=== PATIENT | female | born 1965 | race African-American/Black ===

== ENCOUNTER 2017-06-09 07:20 | Inpatient (IN) | payer OTHER ==
[~2017-06-09] VITALS: Ht 160 cm; Wt 59.0 kg
[2017-06-09] MEDS ORDERED: GABAPENTIN800 MG ORAL (07:28)
[2017-06-09] MEDS ORDERED: PERCOCET 7.5-31 EACH ORAL (07:28)
[2017-06-09 07:30] VITALS: BP 177/95
[2017-06-09] MEDS ORDERED: Nitroglycerin Subl 0.4mg tab SL PRN (07:30)
[2017-06-09] MEDS ORDERED: Sodium Chloride 500ML 500 ML IV ONE (07:30)
[2017-06-09] MEDS ORDERED: LANTUS SOL100 UNIT/1 SUBQ ×2 (07:57→12:23)
[2017-06-09] MEDS ORDERED: Morphine Sulfate 4mg/ml Inj IVP ONE (08:30)
[2017-06-09 08:32] LABS: EOSINOPHILS % (AUTO) 0.6 % (0.0-3.0); HEMATOCRIT 37.7 % (37.0-47.0); HEMOGLOBIN 12.1 G/DL (12.0-16.0); LYMPHOCYTES % (AUTO) 19.7 % (20.0-45.0); MEAN CORPUSCULAR VOLUME 98 FL (80-99); MONOCYTES % (AUTO) 4.3 % (1.0-10.0); NEUTROPHILS % (AUTO) 74.3 % (45.0-75.0); PLATELET COUNT 255 K/UL (150-450); RED BLOOD COUNT 3.83 M/UL (4.20-5.40); RED CELL DISTRIBUTION WIDTH 12.3 % (11.6-14.8); WHITE BLOOD COUNT 8.1 K/UL (4.8-10.8)
[2017-06-09 08:34] LABS: APPEARANCE,URINE CLEAR; BILIRUBIN, URINE NEGATIVE (NEGATIVE); COLOR,URINE PALE YELLOW; GLUCOSE, URINE (UA) 4+ (NEGATIVE); KETONES,URINE NEGATIVE (NEGATIVE); LEUKOCYTE ESTERASE ,URINE NEGATIVE (NEGATIVE); NITRITE,URINE NEGATIVE (NEGATIVE); PH,URINE 7 (4.5-8.0); PROTEIN,URINE 3+ (NEGATIVE); UROBILINOGEN,URINE NORMAL MG/DL (0.0-1.0)
[2017-06-09 08:36] VITALS: BP 169/83
[2017-06-09 09:12] LABS: ALANINE AMINOTRANSFERASE 19 U/L (12-78); ALBUMIN 2.2 G/DL (3.4-5.0); ALBUMIN/GLOBULIN RATIO 0.6 (1.0-2.7); ALKALINE PHOSPHATASE 166 U/L (46-116); ANION GAP 11 mmol/L (5-15); ASPARTATE AMINO TRANSFERASE 15 U/L (15-37); BILIRUBIN,TOTAL 0.2 MG/DL (0.2-1.0); BLOOD UREA NITROGEN 24 mg/dL (7-18); CALCIUM 8.9 MG/DL (8.5-10.1); CARBON DIOXIDE 23 MMOL/L (21-32); CHLORIDE 99 MMOL/L (98-107); CKMB 2.8 NG/ML (0.0-3.6); CREATINE KINASE 114 U/L (26-308); CREATININE 1.8 MG/DL (0.55-1.30); POTASSIUM 4.2 MMOL/L (3.5-5.1); SODIUM 133 MMOL/L (136-145)
[2017-06-09] MEDS ORDERED: Nitroglycerin 2% oint pkt TOPIC ONE (09:15)
[2017-06-09 09:32] LABS: INR 0.8 (0.9-1.1)
--- NOTE | 2017-06-09 09:52 | Emergency Room Report ---
History of Present Illness General Chief Complaint: Chest Pain Source: Patient Present Illness HPI 52-year-old female presents ED complaining of chest pain. Started this morning it woke her up. At rest. Pain was midsternal, pressure-like, 10 out of 10, nonradiating. Noted shortness of breath. Patient hypertensive in the field. Patient was given aspirin and nitroglycerin with some relief. Patient notes history of hypertension. Accu-Chek critically high. Patient is also diabetic. Denies smoking or drug use. No other aggravating or leading factors. Denies any other associated symptoms Allergies: Coded Allergies: No Known Allergies (Unverified , 06/09/17) Patient History Past Medical History: DM, HTN Past Surgical History: none Pertinent Family History: none Social History: Denies: smoking, alcohol use, drug use Now: No Immunizations: UTD Reviewed Nursing Documentation: PMH: Agreed, PSxH: Agreed Nursing Documentation-PMH Past Medical History: No History, Except For Hx Hypertension: Yes Hx Diabetes: Yes Review of Systems All Other Systems: negative except mentioned in HPI Physical Exam Vital Signs Date Time Temp Pulse Resp B/P (MAP) Pulse Ox O2 Delivery O2 Flow Rate FiO2 06/09/17 07:13 99.3 97 16 180/98 98 Room Air 06/09/17 07:30 2.0 06/09/17 07:35 100 Sp02 EP Interpretation: reviewed, normal General Appearance: alert, GCS 15, non-toxic, mild distress Head: normocephalic, atraumatic Eyes: bilateral eye normal inspection, bilateral eye PERRL ENT: hearing grossly normal, normal pharynx, no angioedema, normal voice Neck: full range of motion, supple/symm/no masses Respiratory: chest non-tender, lungs clear, normal breath sounds, speaking full sentences Cardiovascular #1: regular rate, rhythm, no edema Cardiovascular #2: 2+ carotid (R), 2+ carotid (L), 2+ radial (R), 2+ radial (L) , 2+ dorsalis pedis (R), 2+ dorsalis pedis (L) Gastrointestinal: normal bowel sounds, non tender, soft, non-distended, no guarding, no rebound Rectal: deferred Genitourinary: normal inspection, no CVA tenderness Musculoskeletal: back normal, gait/station normal, normal range of motion, non- tender Neurologic: alert, oriented x3, responsive, motor strength/tone normal, sensory intact, speech normal Psychiatric: judgement/insight normal, memory normal, mood/affect normal, no suicidal/homicidal ideation Reflexes: 3+ bicep (R), 3+ bicep (L), 3+ tricep (R), 3+ tricep (L), 3+ knee (R) , 3+ knee (L) Skin: normal color, no rash, warm/dry, well hydrated Lymphatic: no adenopathy Procedures Critical Care Time Critical Care Time i. I feel this is a highly complex case requiring extensive working including EKG/Rhythm strip, Xray/CT/US, Blood/urine lab work, repeat exams while in ED, and administration of strong opiates/narcotics for pain control, admission to hospital or close patient follow up. Total time: 30 min bedside evaluation and treatment excludes procedures (EKG). Reason for critical care: NSTEMI, hyperglycemia Possible complications: hypotension, hypertension, SD, shock, arrhythmias, metabolic acidosis, end organ damage, respiratory failure. Interventions: labs, ekg, cxr, ivfs, nitroglycerin, morphine, insulin, heparin drip Course: Patient presenting with chest pain sudden onset. Group with nitroglycerin. Troponin greater than 1. U. tox negative. Glucose greater than 600 but no DKA. Patient given morphine, nitroglycerin paste. Started on heparin drip. EKG shows no signs of ST elevation Consultations: nursing staff, EMS, family Performed by: Dr Swanson Tolerated well condition = critical j. because of unstable vital signs this patient had a condition that could potentially threaten life or limb. I feel this is a critical patient who required my full attention while patient was considered critical. Total Critical Care Time excluding procedures was greater than 35 minutes Medical Decision Making Diagnostic Impression: Primary Impression: NSTEMI (non-ST elevated myocardial infarction) Additional Impressions: Hyperglycemia CHF exacerbation Qualified Codes: I50.9 - Heart failure, unspecified ER Course Hospital Course 52-year-old female presents ED complaining of chest pain since this morning Differential diagnoses include: SD/unstable angina, contusion, muscle strain, PTX, rib fracture Clinical course Patient placed on stretcher. After initial history and physical I ordered labs , EKG, chest x-ray, nitroglycerin labs reviewed- no leukocytosis, electrolytes ok, tox screen negative, troponins 1.096, BNP > 6000, Glucose > 600 but not DKA EKG- no evidence of ST elevation interpreted by me Chest x-ray- cardiomegaly Given nitroglycerin with pain improved. Started on nitro paste. started on heparin drip. Given Plavix given IVFs, insulin Case discussed with Dr. Tran and he agreed to accept the patient to his service for further care and support I. I feel this is a highly complex case requiring extensive working including EKG/Rhythm strip, Xray/CT/US, Blood/urine lab work, repeat exams while in ED, and administration of strong opiates/narcotics for pain control, admission to hospital or close patient follow up. Diagnosis - NSTEMI, CHF, hyperglycemia admitted to [facility] in critical condition Labs Test 06/09/17 07:50 06/09/17 08:00 White Blood Count 8.1 K/UL (4.8-10.8) Red Blood Count 3.83 M/UL (4.20-5.40) Hemoglobin 12.1 G/DL (12.0-16.0) Hematocrit 37.7 % (37.0-47.0) Mean Corpuscular Volume 98 FL (80-99) Mean Corpuscular Hemoglobin 31.5 PG (27.0-31.0) Mean Corpuscular Hemoglobin Concent 32.0 G/DL (32.0-36.0) Red Cell Distribution Width 12.3 % (11.6-14.8) Platelet Count 255 K/UL (150-450) Mean Platelet Volume 10.4 FL (6.5-10.1) Neutrophils (%) (Auto) 74.3 % (45.0-75.0) Lymphocytes (%) (Auto) 19.7 % (20.0-45.0) Monocytes (%) (Auto) 4.3 % (1.0-10.0) Eosinophils (%) (Auto) 0.6 % (0.0-3.0) Basophils (%) (Auto) 1.0 % (0.0-2.0) Sodium Level 133 MMOL/L (136-145) Potassium Level 4.2 MMOL/L (3.5-5.1) Chloride Level 99 MMOL/L (98-107) Carbon Dioxide Level 23 MMOL/L (21-32) Anion Gap 11 mmol/L (5-15) Blood Urea Nitrogen 24 mg/dL (7-18) Creatinine 1.8 MG/DL (0.55-1.30) Estimat Glomerular Filtration Rate 35.5 mL/min (>60) Glucose Level 666 MG/DL (74-106) Calcium Level 8.9 MG/DL (8.5-10.1) Total Bilirubin 0.2 MG/DL (0.2-1.0) Aspartate Amino Transf (AST/SGOT) 15 U/L (15-37) Alanine Aminotransferase (ALT/SGPT) 19 U/L (12-78) Alkaline Phosphatase 166 U/L (46-116) Total Creatine Kinase 114 U/L (26-308) Creatine Kinase MB 2.8 NG/ML (0.0-3.6) Creatine Kinase MB Relative Index 2.4 Troponin I 1.096 ng/mL (0.000-0.056) Pro-B-Type Natriuretic Peptide 6917 pg/mL (0-125) Total Protein 6.1 G/DL (6.4-8.2) Albumin 2.2 G/DL (3.4-5.0) Globulin 3.9 g/dL Albumin/Globulin Ratio 0.6 (1.0-2.7) Acetone Level Negative (NEGATIVE) Prothrombin Time 8.7 SEC (9.30-11.50) Prothromb Time International Ratio 0.8 (0.9-1.1) Activated Partial Thromboplast Time 26 SEC (23-33) Urine Color Pale yellow Urine Appearance Clear Urine pH 7 (4.5-8.0) Urine Specific [place] 1.005 (1.005-1.035) Urine Protein 3+ (NEGATIVE) Urine Glucose (UA) 4+ (NEGATIVE) Urine Ketones Negative (NEGATIVE) Urine Occult Blood 1+ (NEGATIVE) Urine Nitrite Negative (NEGATIVE) Urine Bilirubin Negative (NEGATIVE) Urine Urobilinogen Normal MG/DL (0.0-1.0) Urine Leukocyte Esterase Negative (NEGATIVE) Urine RBC 0-2 /HPF (0 - 2) Urine WBC 0-2 /HPF (0 - 2) Urine Squamous Epithelial Cells Occasional /LPF Urine Bacteria Occasional /HPF (NONE) Urine HCG, Qualitative Negative Urine Opiates Screen Negative (NEGATIVE) Urine Barbiturates Screen Negative (NEGATIVE) Phencyclidine (PCP) Screen Negative (NEGATIVE) Urine Amphetamines Screen Negative (NEGATIVE) Urine Benzodiazepines Screen Negative (NEGATIVE) Urine Cocaine Screen Negative (NEGATIVE) Urine Marijuana (THC) Screen Negative (NEGATIVE) EKG Diagnostic Results Rate: normal Rhythm: NSR ST Segments: no acute changes ASA given to the pt in ED: No - given by ems Rhythm Strip Diag. Results EP Interpretation: yes Rhythm: NSR, no PVC's, no ectopy Chest X-Ray Diagnostic Results Chest X-Ray Diagnostic Results : Chest X-Ray Ordered: Yes # of Views/Limited/Complete: 1 View Indication: Chest Pain EP Interpretation: Yes Interpretation: no pneumothorax, other - cardiomegaly. bilateral congestion Impression: Other - cardiomegaly Electronically Signed by: Electronically signed by Eleazar Swanson MD Last Vital Signs Date Time Temp Pulse Resp B/P (MAP) Pulse Ox O2 Delivery O2 Flow Rate FiO2 06/09/17 09:13 170/79 06/09/17 08:36 85 23 99 2.0 06/09/17 07:35 Nasal Cannula 100 06/09/17 07:13 99.3 Status: improved Disposition: ADMITTED INPATIENT Condition: Critical Referrals: NON PHYSICIAN (PCP) ELEAZAR SWANSON M.D. Jun 09, 2017 09:52
[2017-06-09] MEDS ORDERED: Heparin 5000 units/ml inj IV ONE ×2 (10:00→21:15)
[2017-06-09] MEDS ORDERED: Heparin 25,000u/D5W 500ml 500 ML IV SCH ×3 (10:00→20:15)
[2017-06-09 11:21] VITALS: BP 154/81
[2017-06-09] MEDS ORDERED: HYDROmorphone 1mg/ml Carpuject IVP ONE (11:30)
[2017-06-09 12:27] VITALS: BP 150/85
--- NOTE | 2017-06-09 13:21 | Diagnostic Imaging Report ---
Indication: Chest pain Technique: One view of the chest Comparison: None Findings: There is mild interstitial prominence, suggestion of Re B line cyst laterally at the lung bases, right greater left. There is suggestion of small left pleural effusion. The heart is upper limits normal in size. Impression: Suspect mild congestive heart failure. Correlate with clinical findings
[2017-06-09 13:28] LABS: ALANINE AMINOTRANSFERASE 17 U/L (12-78); ALBUMIN/GLOBULIN RATIO 0.4 (1.0-2.7); ALKALINE PHOSPHATASE 147 U/L (46-116); ANION GAP 9 mmol/L (5-15); ASPARTATE AMINO TRANSFERASE 17 U/L (15-37); BILIRUBIN,TOTAL 0.2 MG/DL (0.2-1.0); BLOOD UREA NITROGEN 20 mg/dL (7-18); CALCIUM 8.7 MG/DL (8.5-10.1); CARBON DIOXIDE 24 MMOL/L (21-32); CHLORIDE 103 MMOL/L (98-107); CHOLESTEROL 340 MG/DL (< 200); CREATININE 1.5 MG/DL (0.55-1.30); HDL CHOLESTEROL 47 MG/DL (40-60); POTASSIUM 3.9 MMOL/L (3.5-5.1); SODIUM 136 MMOL/L (136-145); TRIGLYCERIDES 341 MG/DL (0-200)
[2017-06-09 13:29] LABS: CKMB 3.6 NG/ML (0.0-3.6)
[2017-06-09 15:42] VITALS: BP 152/75
[2017-06-09] MEDS ORDERED: Norco 7.5mg/325mg tab ORAL PRN ×2 (16:00)
[2017-06-09] MEDS: Nitroglycerin 2% oint pkt TOPIC SCH (17:19)
[2017-06-09] MEDS: NovoLOG Insulin Flexpen SUBQ SCH ×2 (17:44→21:30)
[2017-06-09] MEDS: Morphine Sulfate 4mg/ml Inj IV PRN ×2 (18:08→23:08)
[2017-06-09 20:00] VITALS: BP 159/84
[2017-06-09] MEDS: Atenolol 12.5mg PO SCH (21:24)
[2017-06-09] MEDS: Levemir Flexpen SUBQ SCH (21:31)
[2017-06-10] VITALS (7 sets, daily range): BP systolic 136–191; BP diastolic 66–106
[2017-06-10 03:52] LABS: CHOLESTEROL 306 MG/DL (< 200); HDL CHOLESTEROL 45 MG/DL (40-60); TRIGLYCERIDES 449 MG/DL (0-200)
[2017-06-10] MEDS: Morphine Sulfate 4mg/ml Inj IV PRN (04:29)
[2017-06-10] MEDS ORDERED: Heparin 25,000u/D5W 500ml 500 ML IV SCH ×2 (05:00→12:30)
[2017-06-10] MEDS ORDERED: Heparin 5000 units/ml inj IV ONE ×3 (05:00→20:15)
[2017-06-10] MEDS: NovoLOG Insulin Flexpen SUBQ SCH ×4 (06:24→21:07)
[2017-06-10] MEDS: Nitroglycerin 2% oint pkt TOPIC SCH ×3 (06:29→18:25)
[2017-06-10] MEDS: Atenolol 12.5mg PO SCH ×2 (08:41→20:07)
[2017-06-10] MEDS: Aspirin Baby 81mg ORAL SCH (08:41)
[2017-06-10] MEDS: Levemir Flexpen SUBQ SCH ×2 (08:42→21:06)
[2017-06-10] MEDS ORDERED: Morphine Sulfate 4mg/ml Inj IV PRN (10:00)
[2017-06-10] MEDS: Morphine Sulfate 4mg/ml Inj IVP PRN ×3 (10:02→19:02)
--- NOTE | 2017-06-10 13:57 | Cardiology Report ---
APPROVED REPORT EXAM: Two-dimensional and M-mode echocardiogram with Doppler and color Doppler. INDICATION Acute IN M-Mode DIMENSIONS IVSd1.5 (0.7-1.1cm)Left Atrium (MM)3.5 (1.6-4.0cm) LVDd4.4 (3.5-5.6cm)Aortic Root2.6 (2.0-3.7cm) PWd1.4 (0.7-1.1cm) IVSs1.6 cm LVDs2.7 (2.5-4.0cm) PWs1.9 cm Normal left ventricular chamber size. have normal wall motion. Left ventricular ejection fraction estimated to be 55 %. Mild left ventricular hypertrophy. Anterior Echo-free space, may be due to pericardial fat or effusion. Left atrial size at upper limits of normal. Right cardiac chamber sizes are within normal limits. Focal aortic valve sclerosis with adequate cusp excursion. Thickened mitral valve leaflets with normal excursion. Mitral annulus and aortic root calcification. Pulmonic valve not well visualized. Normal tricuspid valve structure. IVC at normal size with physiologic collapse. A color flow and spectral Doppler study was performed and revealed: Trace aortic regurgitation. Moderate mitral regurgitation. Mitral diastolic velocities suggest reduced left ventricular relaxation c/w mild LV diastolic dysfunction (Grade I). Trace tricuspid regurgitation. Tricuspid systolic velocities suggests peak right ventricular systolic pressure of 18 mmHg.
--- NOTE | 2017-06-10 14:54 | Consultation ---
History of Present Illness General Date patient seen: Jun 10, 2017 Chief Complaint: Chest Pain Reason for Consultation: chest pain Present Illness HPI 52-year-old female with hx of DM, HTN presented to ED complaining of chest pain , midsternal, pressure-like, 10 out of 10, nonradiating. Noted shortness of breath. Patient hypertensive in the field. Patient was given aspirin and nitroglycerin with some relief. She was diagnosed to have NSTEMI, was started on Heparin drip and transferred to [facility]. Allergies: Coded Allergies: No Known Allergies (Unverified , 06/09/17) Medication History Scheduled Gabapentin* (Gabapentin*), 800 MG ORAL THREE TIMES A DAY, (Reported) Insulin Glargine (Lantus), 50 SUBQ BID, (Reported) Scheduled PRN Oxycodone Hcl/Acetaminophen 7.5-325 Mg (Percocet 7.5-325 Mg Tablet), 1 TAB ORAL Q8H PRN for For Pain, (Reported) Patient History Healthcare decision maker Resuscitation status Full Code Advanced Directive on File Past Medical/Surgical History Past Medical/Surgical History: (1) Diabetes mellitus (2) Hypertension Review of Systems Constitutional: Reports: no symptoms All Other Systems: negative except mentioned in HPI Physical Exam General Appearance: WD/WN Lines, tubes and drains: peripheral, PICC Neck: non-tender, normal alignment Respiratory/Chest: lungs clear, no respiratory distress Cardiovascular/Chest: normal rate Abdomen: soft Last 24 Hour Vital Signs Date Time Temp Pulse Resp B/P (MAP) Pulse Ox O2 Delivery O2 Flow Rate FiO2 06/10/17 12:00 98.9 78 19 136/80 98 Nasal Cannula 2.0 06/10/17 12:00 74 06/10/17 11:27 154/82 06/10/17 10:32 99.0 06/10/17 09:20 98 Nasal Cannula 2.0 28 06/10/17 09:20 Nasal Cannula 2.0 28 06/10/17 08:00 94 06/10/17 08:00 99.0 78 20 139/97 98 Nasal Cannula 2.0 100 06/10/17 07:23 99.5 06/10/17 06:29 156/82 06/10/17 04:59 99.5 06/10/17 04:00 98.4 83 20 159/66 98 Nasal Cannula 2.0 100 06/10/17 00:00 99.5 85 20 155/88 98 Nasal Cannula 2.0 100 06/09/17 23:52 Nasal Cannula 2.0 28 06/09/17 23:52 99 Nasal Cannula 2.0 28 06/09/17 20:00 98.9 93 20 159/84 98 Nasal Cannula 2.0 100 06/09/17 20:00 96 06/09/17 17:19 152/75 06/09/17 16:47 93 06/09/17 15:42 99.1 92 19 152/75 98 Nasal Cannula 2.0 100 Intake and Output 06/10/17 06/11/17 19:00 07:00 Intake Total 131.935 ml Balance 131.935 ml IV Total 131.935 ml Laboratory Tests Test 06/09/17 18:30 06/09/17 21:30 06/10/17 02:30 06/10/17 11:00 Activated Partial Thromboplast Time 27 SEC (23-33) 32 SEC (23-33) 43 SEC (23-33) H Troponin I 1.407 ng/mL (0.000-0.056) Triglycerides Level 449 MG/DL (0-200) H Cholesterol Level 306 MG/DL (< 200) H LDL Cholesterol 194 mg/dL (<100) H HDL Cholesterol 45 MG/DL (40-60) Cholesterol/HDL Ratio 6.8 (3.3-4.4) H Height (Feet): 5 Height (Inches): 3.00 Weight (Pounds): 130 Medications Current Medications Medications (Trade) Dose Ordered Sig/Zara Route PRN Reason Start Time Stop Time Status Last Admin Dose Admin Acetaminophen (Tylenol) 650 mg Q6H PRN ORAL Mild Pain/Temp > 100.5 06/09/17 18:45 07/09/17 18:44 06/10/17 06:29 Aspirin (ASA) 81 mg DAILY ORAL 06/10/17 09:00 07/10/17 08:59 06/10/17 08:41 Atenolol (Tenormin) 12.5 mg Q12HR PO 06/09/17 21:00 07/09/17 20:59 06/10/17 08:41 Clonidine HCl (Catapres) 0.1 mg Q6H PRN ORAL FOR SBP>160 06/10/17 10:00 07/10/17 09:59 Dextrose (Dextrose 50%) STAT PRN IV Hypoglycemia 06/09/17 15:45 07/09/17 15:44 Heparin Sodium/ Dextrose 500 ml @ 28.304 mls/ hr adjust per protocol IV 06/10/17 12:30 07/10/17 04:59 06/10/17 12:32 Insulin Aspart (NovoLOG) BEFORE MEALS AND HS SUBQ 06/09/17 17:30 07/09/17 17:29 06/10/17 06:24 Insulin Detemir (Levemir) 50 units EVERY 12 HOURS SUBQ 06/09/17 21:00 07/09/17 20:59 06/10/17 08:42 Morphine Sulfate (Morphine Sulfate) 2 mg Q4H PRN IV Moderate Pain (Pain Scale 4-6) 06/10/17 10:00 06/17/17 09:59 Morphine Sulfate (Morphine Sulfate) 4 mg Q4H PRN IVP Severe Pain (Pain Scale 7-10) 06/10/17 08:45 06/17/17 08:44 06/10/17 10:02 Nitroglycerin (Nitro-Bid) 1 inch TID@0600,1200,1800 TOPIC 06/09/17 18:00 07/09/17 17:59 06/10/17 11:27 Assessment/Plan Problem List: (1) NSTEMI (non-ST elevated myocardial infarction) ICD Codes: I21.4 - Non-ST elevation (NSTEMI) myocardial infarction SNOMED: 018991392 (2) CHF exacerbation ICD Codes: I50.9 - Heart failure, unspecified SNOMED: 91990839 Qualifiers: Qualified Codes: I50.9 - Heart failure, unspecified (3) Diabetes mellitus ICD Codes: E11.9 - Type 2 diabetes mellitus without complications SNOMED: 95983886 (4) Hypertension ICD Codes: I10 - Essential (primary) hypertension SNOMED: 01793436 Assessment/Plan cardio evaluation pending continue heparin drip Nitro prn sliding scale KEVIN GE Jun 10, 2017 14:54
--- NOTE | 2017-06-10 15:16 | History & Physical ---
History and Physical History & Physicial Manjinder Edwards MD Jun 10, 2017 15:16
--- NOTE | 2017-06-10 15:16 | History & Physical ---
History and Physical History & Physicial Manjinder Edwards MD Jun 10, 2017 15:16
--- NOTE | 2017-06-10 15:16 | History & Physical ---
History and Physical History & Physicial Manjinder Edwards MD Jun 10, 2017 15:16
[2017-06-10] MEDS: Atorvastatin 80mg tab ORAL SCH (20:07)
[2017-06-10] MEDS: Heparin 25,000u/D5W 500ml 500 ML IV SCH (20:19)
--- NOTE | 2017-06-10 21:30 | History and Physical Report ---
DATE OF ADMISSION: 06/09/2017 CHIEF COMPLAINT: Chest pain. HISTORY OF PRESENT ILLNESS: This is a 52 years old female with past medical history significant for diabetic type 2 with diabetic neuropathy and hypertension as well as fibromyalgia, who was presented to the hospital complaining about chest pain. Shortly after initial evaluation, the patient was noted to have elevated troponin and EKG with no ST elevation. Chest pain was noted to have midsternum area, pressure like, 10/10 in intensity, no radiation, and associated with shortness of breath. The patient stated that she has been having pedal edema and was noted to have hypertension in the field. Shortly after initial evaluation, the patient was given nitroglycerin and aspirin, some relief, and the patient was admitted to the hospital with non-ST elevation myocardial infarction. PAST MEDICAL HISTORY/PAST SURGICAL HISTORY: As above, history of diabetes type 2, hypertension, diabetic polyneuropathy, and fibromyalgia. MEDICATIONS: At home significant for gabapentin and Lantus. SOCIAL HISTORY: The patient denies any smoking, alcohol, or drugs. She is disabled. FAMILY HISTORY: Significant for diabetes and hypertension runs in both sides, mother and father. REVIEW OF SYSTEMS: Mostly as above. Denies any dysuria, frequency, hematuria, or hematochezia. Denies any hemoptysis or hematochezia. Complained about tingling and numbness of the lower extremities. Denies any hemoptysis or hematochezia. Complained about pedal edema. Denies any loss of consciousness. Denies any double vision. Denies any suicidal or homicidal ideation. PHYSICAL EXAMINATION: VITAL SIGNS: On admission from the ER significant for temperature 99.3, pulse of 97, respirations 16, and blood pressure 180/98. GENERAL: The patient is awake, responsive, in no acute distress. HEAD AND NECK: Pupils are equal and reactive to light. Extraocular movements are intact. Neck was supple. No JVD. LUNGS: Good air entry. No wheezing or rales. HEART: S1 and S2. Regular rhythm. No gallops. ABDOMEN: Soft, nondistended, and nontender. Positive bowel sounds. EXTREMITIES: No cyanosis, clubbing, or edema. NEUROLOGIC: Cranial nerves II through XII are grossly intact. Motor is 5/5 in all extremities. Gait is intact. LABORATORY AND DIAGNOSTIC DATA: Laboratory on admission from the ER, WBC of 8.1, hemoglobin 12, hematocrit 37, and platelets 255,000. Sodium 136, potassium 2.9, chloride 103, bicarbonate 24, BUN 20, creatinine 1.5, glucose is 454, and calcium is 8.7. AST of 17, ALT of 17, and alkaline phosphatase is 147. First troponin is 1.689, second troponins 1.407. Total protein 6.5, albumin is 2.0. Cholesterol is 340 and LDL is 208. Urine drug screen is negative. Urinalysis, +3 protein, +4 glucose, and negative ketones. PT of 8.7, INR 0.8, and PTT of 26. EKG was noted to be sinus rhythm with a ventricular rate of 72, no ST elevation was noted, left atrial enlargement, Q-wave was noted in the lead I and aVL, and a T-wave inversion in lead V6. ASSESSMENT: 1. Chest pain, most likely secondary to non-ST elevation myocardial infarction. 2. Hypertension. 3. Dyslipidemia. 4. Diabetes type 2. 5. Diabetic polyneuropathy. 6. Chronic renal insufficiency. 7. Proteinuria. PLAN: Admit the patient to [facility]. We will follow up with the serial cardiac enzymes. Discussed case with Dr. Godinez from Critical Care. We called the transfer center at [facility] for transfer for cardiac catheterization. Discussed with the social organization professor, Queta for possible transfer. As per insurance, the patient is [place] [facility], we will try to get authorization from insurance in order to transfer the patient to the higher level of care. Heparin drip and Nitrostat. Accu-Chek with sliding scale. We will follow with serial cardiac enzymes. Troponins have been declining. Manjinder Edwards M.D. DR: LEXIE JOB#: [id number] CC:
[2017-06-10] MEDS ORDERED: HydrALAZINE 10mg Tab ORAL PRN (22:45)
[2017-06-11] VITALS: BP 144/79
[2017-06-11] MEDS: Morphine Sulfate 4mg/ml Inj IVP PRN ×5 (00:15→21:54)
[2017-06-11 04:00] VITALS: BP 154/78
[2017-06-11] MEDS: Heparin 25,000u/D5W 500ml 500 ML IV SCH (04:23)
[2017-06-11 05:06] LABS: PHOSPHORUS 4.2 MG/DL (2.5-4.9)
[2017-06-11 05:14] LABS: BASOPHILS % (AUTO) 0.8 % (0.0-2.0); EOSINOPHILS % (AUTO) 1.4 % (0.0-3.0); HEMATOCRIT 33.8 % (37.0-47.0); HEMOGLOBIN 11.2 G/DL (12.0-16.0); MEAN CORPUSCULAR VOLUME 95 FL (80-99); MONOCYTES % (AUTO) 5.8 % (1.0-10.0); NEUTROPHILS % (AUTO) 52.1 % (45.0-75.0); PLATELET COUNT 324 K/UL (150-450); RED BLOOD COUNT 3.54 M/UL (4.20-5.40); RED CELL DISTRIBUTION WIDTH 12.2 % (11.6-14.8); WHITE BLOOD COUNT 9.4 K/UL (4.8-10.8)
[2017-06-11 05:16] LABS: ALANINE AMINOTRANSFERASE 15 U/L (12-78); ALBUMIN 1.8 G/DL (3.4-5.0); ALBUMIN/GLOBULIN RATIO 0.4 (1.0-2.7); ALKALINE PHOSPHATASE 114 U/L (46-116); ANION GAP 12 mmol/L (5-15); ASPARTATE AMINO TRANSFERASE 18 U/L (15-37); BILIRUBIN,TOTAL 0.3 MG/DL (0.2-1.0); BLOOD UREA NITROGEN 25 mg/dL (7-18); CALCIUM 8.9 MG/DL (8.5-10.1); CARBON DIOXIDE 23 MMOL/L (21-32); CHLORIDE 106 MMOL/L (98-107); CREATININE 1.6 MG/DL (0.55-1.30); POTASSIUM 3.4 MMOL/L (3.5-5.1); SODIUM 141 MMOL/L (136-145)
[2017-06-11] MEDS ORDERED: Heparin 25,000u/D5W 500ml 500 ML IV SCH (05:30)
[2017-06-11] MEDS ORDERED: Heparin 5000 units/ml inj IV ONE (05:30)
[2017-06-11] MEDS: Nitroglycerin 2% oint pkt TOPIC SCH ×3 (05:57→18:51)
[2017-06-11] MEDS: NovoLOG Insulin Flexpen SUBQ SCH ×4 (06:28→21:58)
[2017-06-11 08:00] VITALS: BP 144/72
--- NOTE | 2017-06-11 08:00 | Pulmonology Progress Note ---
Assessment/Plan Assessment/Plan ASSESSMENT NSTEMI diastolic CHF exacerbation hyperglycemia 2 to DM HTN urgency acute on chronic renal failure mixed hyperlipidemia moderate MR DM HTN e/lyte imbalance ( hypo K hypo Mg) PLAN OF CARE ECTOR Heparin gtt serial troponin eleavted ECG no acute ischemic changes ECHO with EF 55% and RVSP of 18, moderate MR lipid panel with evidence of mixed hyperlipidemia started on ASA and statin CXR- mild CHF diuretic, monitor renal parameters, lytes, I/O fup CXR with resolution of congestive changes and basilar infiltrates with some residual atelectasis in the bases. change Lasix to daily renal US O2 HHN prn BS management with Levemir and SS of insulin, optimize as needed HgA1c -13.2 ! BP management with BB and hydralazine prn pain management with Morphine and Nitro prn replace lytes, check in am case discussed and evaluated by supervising physician Subjective Allergies: Coded Allergies: No Known Allergies (Unverified , 06/09/17) Subjective occasional chest pain, no SOB on RA pulse ox stable on heparin gtt troponin still elevated low Mg and K this am Objective Last 24 Hour Vital Signs Date Time Temp Pulse Resp B/P (MAP) Pulse Ox O2 Delivery O2 Flow Rate FiO2 06/11/17 05:57 146/78 06/11/17 04:00 97.7 73 16 154/78 100 Nasal Cannula 3.0 06/11/17 03:51 71 06/11/17 00:00 98.2 75 14 144/79 100 Nasal Cannula 3.0 06/10/17 23:40 77 06/10/17 20:05 163/93 06/10/17 20:00 98.6 77 18 191/106 100 Nasal Cannula 3.0 06/10/17 19:26 78 06/10/17 19:20 98 Nasal Cannula 2.0 28 06/10/17 19:20 Nasal Cannula 2.0 28 06/10/17 18:25 146/75 06/10/17 16:00 71 06/10/17 16:00 97.6 71 19 142/93 98 Nasal Cannula 2.0 06/10/17 15:19 98.9 06/10/17 12:00 98.9 78 19 136/80 98 Nasal Cannula 2.0 06/10/17 12:00 74 06/10/17 11:27 154/82 06/10/17 09:20 98 Nasal Cannula 2.0 28 06/10/17 09:20 Nasal Cannula 2.0 28 06/10/17 08:00 94 06/10/17 08:00 99.0 78 20 139/97 98 Nasal Cannula 2.0 100 General Appearance: WD/WN, no acute distress HEENT: normocephalic, atraumatic, anicteric, mucous membranes moist, PERRL Respiratory/Chest: chest wall non-tender, lungs clear, normal breath sounds, no respiratory distress, no accessory muscle use Cardiovascular: normal rate, regular rhythm - SR on tele , no JVD Abdomen: normal bowel sounds, soft, non tender, non distended Neurologic/Psychiatric: no motor/sensory deficits, alert, oriented x 3, responsive Musculoskeletal: normal muscle bulk Laboratory Tests 06/10/17 11:00: Activated Partial Thromboplast Time 43H 06/10/17 19:10: Activated Partial Thromboplast Time 53H 06/11/17 03:00: Activated Partial Thromboplast Time 58H, White Blood Count 9.4, Red Blood Count 3.54L, Hemoglobin 11.2L, Hematocrit 33.8L, Mean Corpuscular Volume 95, Mean Corpuscular Hemoglobin 31.6H, Mean Corpuscular Hemoglobin Concent 33.1, Red Cell Distribution Width 12.2, Platelet Count 324, Mean Platelet Volume 8.2, Neutrophils (%) (Auto) 52.1, Lymphocytes (%) (Auto) 40.0, Monocytes (%) (Auto) 5.8, Eosinophils (%) (Auto) 1.4, Basophils (%) (Auto) 0.8, Sodium Level 141, Potassium Level 3.4L, Chloride Level 106, Carbon Dioxide Level 23, Anion Gap 12 , Blood Urea Nitrogen 25H, Creatinine 1.6H, Estimat Glomerular Filtration Rate 40.7, Glucose Level 92, Hemoglobin A1c 13.2H, Calcium Level 8.9, Phosphorus Level 4.2, Magnesium Level 1.6L, Total Bilirubin 0.3, Aspartate Amino Transf ( AST/SGOT) 18, Alanine Aminotransferase (ALT/SGPT) 15, Alkaline Phosphatase 114, Troponin I 1.520H, Pro-B-Type Natriuretic Peptide 8770H, Total Protein 6.5, Albumin 1.8L, Globulin 4.7, Albumin/Globulin Ratio 0.4L Current Medications Medications (Trade) Dose Ordered Sig/Zara Route PRN Reason Start Time Stop Time Status Last Admin Dose Admin Acetaminophen (Tylenol) 650 mg Q6H PRN ORAL Mild Pain/Temp > 100.5 06/09/17 18:45 07/09/17 18:44 06/10/17 06:29 Aspirin (ASA) 81 mg DAILY ORAL 06/10/17 09:00 07/10/17 08:59 06/10/17 08:41 Atenolol (Tenormin) 12.5 mg Q12HR PO 06/09/17 21:00 07/09/17 20:59 06/10/17 20:07 Atorvastatin Calcium (Lipitor) 80 mg BEDTIME ORAL 06/10/17 21:00 07/10/17 20:59 06/10/17 20:07 Dextrose (Dextrose 50%) STAT PRN IV Hypoglycemia 06/09/17 15:45 07/09/17 15:44 Furosemide (Lasix) 20 mg EVERY 12 HOURS ORAL 06/10/17 15:00 07/10/17 14:59 06/10/17 20:07 Heparin Sodium/ Dextrose 500 ml @ 33.022 mls/ hr adjust per protocol IV 06/11/17 05:30 07/10/17 20:14 06/11/17 05:34 Hydralazine HCl (Apresoline) 10 mg Q6HR PRN ORAL sbp above 160 06/10/17 22:45 07/10/17 22:44 Insulin Aspart (NovoLOG) BEFORE MEALS AND HS SUBQ 06/09/17 17:30 07/09/17 17:29 06/11/17 06:28 Insulin Detemir (Levemir) 50 units EVERY 12 HOURS SUBQ 06/09/17 21:00 07/09/17 20:59 06/10/17 21:06 Morphine Sulfate (Morphine Sulfate) 2 mg Q4H PRN IV Moderate Pain (Pain Scale 4-6) 06/10/17 10:00 06/17/17 09:59 Morphine Sulfate (Morphine Sulfate) 4 mg Q4H PRN IVP Severe Pain (Pain Scale 7-10) 06/10/17 08:45 06/17/17 08:44 06/11/17 04:20 Nitroglycerin (Nitro-Bid) 1 inch TID@0600,1200,1800 TOPIC 06/09/17 18:00 07/09/17 17:59 06/11/17 05:57 Nitroglycerin (Ntg) 0.4 mg Q5M PRN SL Prn Chest Pain 06/10/17 15:15 07/10/17 15:14 [facility]Sandra NP Jun 11, 2017 08:00
[2017-06-11] MEDS: Aspirin Baby 81mg ORAL SCH (09:23)
[2017-06-11] MEDS: Atenolol 12.5mg PO SCH ×2 (09:24→21:55)
--- NOTE | 2017-06-11 09:26 | Diagnostic Imaging Report ---
Indication: DYSPNEA Technique: XRAY CHEST 1 V Comparison:06/09/2017 Findings: The heart remains normal in size. There is decreased infiltrate in the bases with some residual atelectasis. No pleural fluid. Osseous structures are unchanged. Vascularity is now normal. Impression: Resolution of congestive changes and basilar infiltrates with some residual atelectasis in the bases.
[2017-06-11] MEDS: Levemir Flexpen SUBQ SCH ×2 (09:36→21:57)
[2017-06-11 12:00] VITALS: BP 162/85
--- NOTE | 2017-06-11 14:37 | Cardiology Report ---
APPROVED REPORT EKG Measurement Heart [id number] [place] 142P34 [id number] Normal sinus rhythm Possible Left atrial enlargement Marked ST abnormality, possible lateral subendocardial injury Prolonged QT Abnormal ECG
--- NOTE | 2017-06-11 14:37 | Cardiology Report ---
APPROVED REPORT EKG Measurement Heart [id number] [place] 142P34 [id number] Normal sinus rhythm Possible Left atrial enlargement Marked ST abnormality, possible lateral subendocardial injury Prolonged QT Abnormal ECG
--- NOTE | 2017-06-11 14:37 | Cardiology Report ---
APPROVED REPORT EKG Measurement Heart [id number] [place] 142P34 [id number] Normal sinus rhythm Possible Left atrial enlargement Marked ST abnormality, possible lateral subendocardial injury Prolonged QT Abnormal ECG
--- NOTE | 2017-06-11 14:45 | Cardiology Report ---
APPROVED REPORT EKG Measurement Heart [id number] [place] 144P48 [id number] Normal sinus rhythm Nonspecific ST and T wave abnormality Prolonged QT Abnormal ECG
--- NOTE | 2017-06-11 14:45 | Cardiology Report ---
APPROVED REPORT EKG Measurement Heart [id number] [place] 144P48 [id number] Normal sinus rhythm Nonspecific ST and T wave abnormality Prolonged QT Abnormal ECG
--- NOTE | 2017-06-11 14:45 | Cardiology Report ---
APPROVED REPORT EKG Measurement Heart [id number] [place] 144P48 [id number] Normal sinus rhythm Nonspecific ST and T wave abnormality Prolonged QT Abnormal ECG
--- NOTE | 2017-06-11 14:53 | Cardiology Report ---
APPROVED REPORT EKG Measurement Heart [id number] [place] 138P42 [id number] Normal sinus rhythm Possible Left atrial enlargement Nonspecific ST and T wave abnormality Prolonged QT Abnormal ECG
--- NOTE | 2017-06-11 14:53 | Cardiology Report ---
APPROVED REPORT EKG Measurement Heart [id number] [place] 138P42 [id number] Normal sinus rhythm Possible Left atrial enlargement Nonspecific ST and T wave abnormality Prolonged QT Abnormal ECG
--- NOTE | 2017-06-11 14:53 | Cardiology Report ---
APPROVED REPORT EKG Measurement Heart [id number] [place] 138P42 [id number] Normal sinus rhythm Possible Left atrial enlargement Nonspecific ST and T wave abnormality Prolonged QT Abnormal ECG
[2017-06-11 16:00] VITALS: BP 149/77
--- NOTE | 2017-06-11 16:18 | Internal Med Progress Note ---
Subjective Date of Service: Jun 11, 2017 Physician Name Jose L Zhou Attending Physician Manjinder Edwards MD Current Medications Medications (Trade) Dose Ordered Sig/Zara Route PRN Reason Start Time Stop Time Status Last Admin Dose Admin Acetaminophen (Tylenol) 650 mg Q6H PRN ORAL Mild Pain/Temp > 100.5 06/09/17 18:45 07/09/17 18:44 06/10/17 06:29 Aspirin (ASA) 81 mg DAILY ORAL 06/10/17 09:00 07/10/17 08:59 06/11/17 09:23 Atenolol (Tenormin) 12.5 mg Q12HR PO 06/09/17 21:00 07/09/17 20:59 06/11/17 09:24 Atorvastatin Calcium (Lipitor) 80 mg BEDTIME ORAL 06/10/17 21:00 07/10/17 20:59 06/10/17 20:07 Dextrose (Dextrose 50%) STAT PRN IV Hypoglycemia 06/09/17 15:45 07/09/17 15:44 Furosemide (Lasix) 20 mg DAILY ORAL 06/12/17 09:00 07/10/17 14:59 Heparin Sodium/ Dextrose 500 ml @ 33.022 mls/ hr adjust per protocol IV 06/11/17 05:30 07/10/17 20:14 06/11/17 05:34 Hydralazine HCl (Apresoline) 10 mg Q6HR PRN ORAL sbp above 160 06/10/17 22:45 07/10/17 22:44 Insulin Aspart (NovoLOG) BEFORE MEALS AND HS SUBQ 06/09/17 17:30 07/09/17 17:29 06/11/17 12:16 Insulin Detemir (Levemir) 50 units EVERY 12 HOURS SUBQ 06/09/17 21:00 07/09/17 20:59 06/11/17 09:36 Morphine Sulfate (Morphine Sulfate) 2 mg Q4H PRN IV Moderate Pain (Pain Scale 4-6) 06/10/17 10:00 06/17/17 09:59 Morphine Sulfate (Morphine Sulfate) 4 mg Q4H PRN IVP Severe Pain (Pain Scale 7-10) 06/10/17 08:45 06/17/17 08:44 06/11/17 16:11 Nitroglycerin (Nitro-Bid) 1 inch TID@0600,1200,1800 TOPIC 06/09/17 18:00 07/09/17 17:59 06/11/17 12:23 Nitroglycerin (Ntg) 0.4 mg Q5M PRN SL Prn Chest Pain 06/10/17 15:15 07/10/17 15:14 Allergies: Coded Allergies: No Known Allergies (Unverified , 06/09/17) ROS Limited/Unobtainable: No Constitutional: Reports: no symptoms HEENT: Reports: no symptoms Cardiovascular: Reports: chest pain Respiratory: Reports: no symptoms Gastrointestinal/Abdominal: Reports: no symptoms Genitourinary: Reports: no symptoms Neurologic/Psychiatric: Reports: no symptoms Subjective 52 YO F admitted with chest pain. Now elevated troponin. Await cardiology consult. Cover for Int Med-Dr Edwards. ECTOR Objective Last Vital Signs Date Time Temp Pulse Resp B/P (MAP) Pulse Ox O2 Delivery O2 Flow Rate FiO2 06/11/17 12:23 162/85 06/11/17 12:23 67 06/11/17 12:00 97.2 21 97 06/11/17 04:00 Nasal Cannula 3.0 06/10/17 19:20 28 General Appearance: WD/WN, no apparent distress, alert EENT: PERRL/EOMI, normal ENT inspection Neck: non-tender, normal alignment, supple Cardiovascular: normal peripheral pulses, normal rate, regular rhythm, no gallop/murmur, no JVD Respiratory/Chest: chest wall non-tender, lungs clear, normal breath sounds, no respiratory distress, no accessory muscle use Abdomen: normal bowel sounds, non tender, soft, no organomegaly, no mass Extremities: normal range of motion 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, no motor/sensory deficits Skin: normal pigmentation Laboratory Tests Test 06/10/17 19:10 06/11/17 03:00 06/11/17 11:30 Activated Partial Thromboplast Time 53 SEC (23-33) H 58 SEC (23-33) H 66 SEC (23-33) H White Blood Count 9.4 K/UL (4.8-10.8) Red Blood Count 3.54 M/UL (4.20-5.40) L Hemoglobin 11.2 G/DL (12.0-16.0) L Hematocrit 33.8 % (37.0-47.0) L Mean Corpuscular Volume 95 FL (80-99) Mean Corpuscular Hemoglobin 31.6 PG (27.0-31.0) H Mean Corpuscular Hemoglobin Concent 33.1 G/DL (32.0-36.0) Red Cell Distribution Width 12.2 % (11.6-14.8) Platelet Count 324 K/UL (150-450) Mean Platelet Volume 8.2 FL (6.5-10.1) Neutrophils (%) (Auto) 52.1 % (45.0-75.0) Lymphocytes (%) (Auto) 40.0 % (20.0-45.0) Monocytes (%) (Auto) 5.8 % (1.0-10.0) Eosinophils (%) (Auto) 1.4 % (0.0-3.0) Basophils (%) (Auto) 0.8 % (0.0-2.0) Sodium Level 141 MMOL/L (136-145) Potassium Level 3.4 MMOL/L (3.5-5.1) L Chloride Level 106 MMOL/L (98-107) Carbon Dioxide Level 23 MMOL/L (21-32) Anion Gap 12 mmol/L (5-15) Blood Urea Nitrogen 25 mg/dL (7-18) H Creatinine 1.6 MG/DL (0.55-1.30) H Estimat Glomerular Filtration Rate 40.7 mL/min (>60) Glucose Level 92 MG/DL (74-106) Hemoglobin A1c 13.2 % (4.3-6.0) H Calcium Level 8.9 MG/DL (8.5-10.1) Phosphorus Level 4.2 MG/DL (2.5-4.9) Magnesium Level 1.6 MG/DL (1.8-2.4) L Total Bilirubin 0.3 MG/DL (0.2-1.0) Aspartate Amino Transf (AST/SGOT) 18 U/L (15-37) Alanine Aminotransferase (ALT/SGPT) 15 U/L (12-78) Alkaline Phosphatase 114 U/L (46-116) Troponin I 1.520 ng/mL (0.000-0.056) Pro-B-Type Natriuretic Peptide 8770 pg/mL (0-125) H Total Protein 6.5 G/DL (6.4-8.2) Albumin 1.8 G/DL (3.4-5.0) L Globulin 4.7 g/dL Albumin/Globulin Ratio 0.4 (1.0-2.7) L Intake and Output 06/11/17 06/12/17 19:00 07:00 Intake Total 165.110 ml Balance 165.110 ml IV Total 165.110 ml Assessment/Plan Problem List: (1) Chest pain Assessment & Plan: Elevated troponin; await cardiology consult. (2) Diabetic neuropathy (3) Fibromyalgia (4) NSTEMI (non-ST elevated myocardial infarction) Assessment & Plan: Await cardiology consult. (5) Hypertension Assessment & Plan: Cont atenolol (6) Diabetes mellitus Assessment & Plan: Cont novolog and levemir (7) Elevated troponin level JOSE L ZHOU Jun 11, 2017 16:18
--- NOTE | 2017-06-11 17:25 | Cardiac Electrophysiology PN ---
Subjective Subjective Cardiology consult dictated. [id number] Objective Last 24 Hour Vital Signs Date Time Temp Pulse Resp B/P (MAP) Pulse Ox O2 Delivery O2 Flow Rate FiO2 06/11/17 12:23 162/85 06/11/17 12:23 67 06/11/17 12:00 97.2 66 21 162/85 97 06/11/17 08:00 97.2 75 20 144/72 96 06/11/17 08:00 71 06/11/17 05:57 146/78 06/11/17 04:00 97.7 73 16 154/78 100 Nasal Cannula 3.0 06/11/17 03:51 71 06/11/17 00:00 98.2 75 14 144/79 100 Nasal Cannula 3.0 06/10/17 23:40 77 06/10/17 20:05 163/93 06/10/17 20:00 98.6 77 18 191/106 100 Nasal Cannula 3.0 06/10/17 19:26 78 06/10/17 19:20 98 Nasal Cannula 2.0 28 06/10/17 19:20 Nasal Cannula 2.0 28 06/10/17 18:25 146/75 Intake and Output 06/11/17 06/12/17 19:00 07:00 Intake Total 297.198 ml Balance 297.198 ml IV Total 297.198 ml Laboratory Tests Test 06/10/17 19:10 06/11/17 03:00 06/11/17 11:30 Activated Partial Thromboplast Time 53 SEC (23-33) H 58 SEC (23-33) H 66 SEC (23-33) H White Blood Count 9.4 K/UL (4.8-10.8) Red Blood Count 3.54 M/UL (4.20-5.40) L Hemoglobin 11.2 G/DL (12.0-16.0) L Hematocrit 33.8 % (37.0-47.0) L Mean Corpuscular Volume 95 FL (80-99) Mean Corpuscular Hemoglobin 31.6 PG (27.0-31.0) H Mean Corpuscular Hemoglobin Concent 33.1 G/DL (32.0-36.0) Red Cell Distribution Width 12.2 % (11.6-14.8) Platelet Count 324 K/UL (150-450) Mean Platelet Volume 8.2 FL (6.5-10.1) Neutrophils (%) (Auto) 52.1 % (45.0-75.0) Lymphocytes (%) (Auto) 40.0 % (20.0-45.0) Monocytes (%) (Auto) 5.8 % (1.0-10.0) Eosinophils (%) (Auto) 1.4 % (0.0-3.0) Basophils (%) (Auto) 0.8 % (0.0-2.0) Sodium Level 141 MMOL/L (136-145) Potassium Level 3.4 MMOL/L (3.5-5.1) L Chloride Level 106 MMOL/L (98-107) Carbon Dioxide Level 23 MMOL/L (21-32) Anion Gap 12 mmol/L (5-15) Blood Urea Nitrogen 25 mg/dL (7-18) H Creatinine 1.6 MG/DL (0.55-1.30) H Estimat Glomerular Filtration Rate 40.7 mL/min (>60) Glucose Level 92 MG/DL (74-106) Hemoglobin A1c 13.2 % (4.3-6.0) H Calcium Level 8.9 MG/DL (8.5-10.1) Phosphorus Level 4.2 MG/DL (2.5-4.9) Magnesium Level 1.6 MG/DL (1.8-2.4) L Total Bilirubin 0.3 MG/DL (0.2-1.0) Aspartate Amino Transf (AST/SGOT) 18 U/L (15-37) Alanine Aminotransferase (ALT/SGPT) 15 U/L (12-78) Alkaline Phosphatase 114 U/L (46-116) Troponin I 1.520 ng/mL (0.000-0.056) Pro-B-Type Natriuretic Peptide 8770 pg/mL (0-125) H Total Protein 6.5 G/DL (6.4-8.2) Albumin 1.8 G/DL (3.4-5.0) L Globulin 4.7 g/dL Albumin/Globulin Ratio 0.4 (1.0-2.7) L RITA SETH Jun 11, 2017 17:25
[2017-06-11] MEDS ORDERED: NS 275ml ONE (17:26)
[2017-06-11] MEDS ORDERED: Tubing IV Secondary IV ONE (17:26)
--- NOTE | 2017-06-11 21:00 | Consultation ---
DATE OF CONSULTATION: 06/11/2017 CARDIOLOGY CONSULTATION CONSULTING PHYSICIAN: Kwesi Gupta M.D. REFERRING PHYSICIAN: Manjinder Edwards M.D. REASON FOR CONSULTATION: Chest pain. HISTORY OF PRESENT ILLNESS: The patient is a 52-year-old lady with history of hypertension and type 2 diabetes as well as history of fibromyalgia, who presented to the hospital with chest pain on 06/09/2017. The patient had initial troponin elevation; however, on EKG, there was no ST elevation. The chest pain was initially 10/10. Subsequently, chest pain completely resolved. Cardiology consultation was requested today. At the time of my evaluation, the patient denies any chest pain, palpitations, or shortness of breath. PAST MEDICAL HISTORY: 1. Hypertension. 2. Diabetes. 3. Fibromyalgia. 4. Diabetic polyneuropathy. MEDICATIONS: At home include insulin and gabapentin. SOCIAL HISTORY: Denies smoking or drinking alcohol. REVIEW OF SYSTEMS: Review of systems was performed and was negative other than what was mentioned in the history of present illness. PHYSICAL EXAMINATION: VITAL SIGNS: Blood pressure 160/85, pulse 67, respirations 18, and temperature 97.2. NECK: No JVD. LUNGS: Clear. CARDIOVASCULAR: Regular S1 and S2 with no gallop or murmur. ABDOMEN: Soft. EXTREMITIES: No pitting edema. LABORATORY AND DIAGNOSTIC DATA: EKG showed sinus rhythm with nonspecific ST-T wave abnormality, worse in the lateral lead. Labs show white count of 9.4, hemoglobin 11.2, hematocrit 32.8, and platelet count of 324,000. Sodium 141, potassium 3.4, BUN of 25, and creatinine 1.6. Troponin is 1.52, 1.40, 1.68, and 1.09. ASSESSMENT AND PLAN: 1. [id number] myocardial infarction on admission based on elevated troponin and chest pain as well as abnormal electrocardiogram, suggestive of inferolateral ischemia; however, the patient also has renal failure with creatinine of 1.6 and troponin levels are flat; 1.6, 1.4, and 1.5. The patient is already on medical therapy. She is already on aspirin and Lipitor as well as atenolol. At this time, the patient does not have any chest pain and troponin levels are flat, so I will discontinue heparin. Continue aspirin and beta-aleena. Echocardiogram has also been performed that showed ejection fraction of 55% with moderate mitral regurgitation. 2. Diabetes. 3. Fibromyalgia. We are awaiting transferring the patient for cardiac catheterization at [facility] or other contracted facility as the patient has HMO insurance. Thank you very much, Dr. Edwards, for allowing me to participate in the care of this patient. Please do not hesitate to contact me for any questions regarding my evaluation. Kwesi Gupta M.D. DR: WALDEMAR JOB#: [id number] CC:
[2017-06-11] MEDS: Atorvastatin 80mg tab ORAL SCH (21:54)
[2017-06-12] VITALS: BP 142/77
[2017-06-12] MEDS: Morphine Sulfate 4mg/ml Inj IVP PRN ×4 (03:39→20:47)
[2017-06-12] MEDS: Nitroglycerin Subl 0.4mg tab SL PRN ×5 (03:44→20:54)
[2017-06-12 04:00] VITALS: BP 164/90
[2017-06-12 05:38] LABS: BASOPHILS % (AUTO) 0.8 % (0.0-2.0); EOSINOPHILS % (AUTO) 1.5 % (0.0-3.0); HEMATOCRIT 32.5 % (37.0-47.0); HEMOGLOBIN 10.4 G/DL (12.0-16.0); LYMPHOCYTES % (AUTO) 27.2 % (20.0-45.0); MEAN CORPUSCULAR VOLUME 98 FL (80-99); MONOCYTES % (AUTO) 6.7 % (1.0-10.0); NEUTROPHILS % (AUTO) 63.7 % (45.0-75.0); PLATELET COUNT 249 K/UL (150-450); WHITE BLOOD COUNT 7.9 K/UL (4.8-10.8)
[2017-06-12] MEDS: Nitroglycerin 2% oint pkt TOPIC SCH ×3 (05:54→18:45)
[2017-06-12] MEDS: NovoLOG Insulin Flexpen SUBQ SCH ×4 (05:57→21:51)
[2017-06-12 06:01] LABS: ANION GAP 10 mmol/L (5-15); BLOOD UREA NITROGEN 30 mg/dL (7-18); CARBON DIOXIDE 22 MMOL/L (21-32); CHLORIDE 105 MMOL/L (98-107); CREATININE 1.5 MG/DL (0.55-1.30); POTASSIUM 4.3 MMOL/L (3.5-5.1); SODIUM 137 MMOL/L (136-145)
--- NOTE | 2017-06-12 07:40 | Pulmonology Progress Note ---
Assessment/Plan Assessment/Plan ASSESSMENT NSTEMI diastolic CHF exacerbation hyperglycemia 2 to DM HTN urgency acute on chronic renal failure mixed hyperlipidemia moderate MR DM HTN e/lyte imbalance ( hypo K hypo Mg) PLAN OF CARE ECTOR s/p Heparin gtt ( dc 06/11 by cardio) serial troponin elevated, but flat and trending down actually this am ECG no acute ischemic changes ECHO with EF 55% and RVSP of 18, moderate MR lipid panel with evidence of mixed hyperlipidemia continue on ASA and statin CXR- mild CHF diuretic, monitor renal parameters, lytes, I/O fup CXR with resolution of congestive changes and basilar infiltrates with some residual atelectasis in the bases. change Lasix to daily renal US O2 HHN prn BS management with Levemir and SS of insulin, optimize as needed HgA1c -13.2 ! BP management with BB and hydralazine prn pain management with Morphine and Nitro prn lytes stable after replacement awaiting for transfer for cardiac cath to contacted facility transfer to tele if ok with cardio case discussed and evaluated by supervising physician Subjective Allergies: Coded Allergies: No Known Allergies (Unverified , 06/09/17) Subjective no chest pain, no SOB on RA pulse ox stable s/p heparin gtt troponin started to trend down Objective Last 24 Hour Vital Signs Date Time Temp Pulse Resp B/P (MAP) Pulse Ox O2 Delivery O2 Flow Rate FiO2 06/12/17 05:54 164/90 06/12/17 04:00 79 06/12/17 04:00 97.0 82 18 164/90 97 Room Air 06/12/17 03:44 164/90 06/12/17 03:38 164/90 06/12/17 00:00 98.1 77 18 142/77 98 Room Air 06/12/17 00:00 76 06/11/17 20:00 84 06/11/17 18:51 149/77 06/11/17 18:00 82 06/11/17 16:00 96.9 71 20 149/77 98 06/11/17 12:23 162/85 06/11/17 12:23 67 06/11/17 12:00 97.2 66 21 162/85 97 06/11/17 08:00 97.2 75 20 144/72 96 06/11/17 08:00 71 Objective General Appearance: WD/WN, no acute distress HEENT: normocephalic, atraumatic, anicteric, mucous membranes moist, PERRL Respiratory/Chest: chest wall non-tender, lungs clear, normal breath sounds, no respiratory distress, no accessory muscle use Cardiovascular: normal rate, regular rhythm - SR on tele , no JVD Abdomen: normal bowel sounds, soft, non tender, non distended Neurologic/Psychiatric: no motor/sensory deficits, alert, oriented x 3, responsive Musculoskeletal: normal muscle bulk Laboratory Tests 06/11/17 11:30: Activated Partial Thromboplast Time 66H 06/12/17 04:32: Activated Partial Thromboplast Time 26, White Blood Count 7.9, Red Blood Count 3.30L, Hemoglobin 10.4L, Hematocrit 32.5L, Mean Corpuscular Volume 98, Mean Corpuscular Hemoglobin 31.6H, Mean Corpuscular Hemoglobin Concent 32.1, Red Cell Distribution Width 13.0, Platelet Count 249, Mean Platelet Volume 8.8, Neutrophils (%) (Auto) 63.7, Lymphocytes (%) (Auto) 27.2, Monocytes (%) (Auto) 6.7, Eosinophils (%) (Auto) 1.5, Basophils (%) (Auto) 0.8, Sodium Level 137, Potassium Level 4.3, Chloride Level 105, Carbon Dioxide Level 22, Anion Gap 10, Blood Urea Nitrogen 30H, Creatinine 1.5H, Estimat Glomerular Filtration Rate 43.9, Glucose Level 115H, Calcium Level 9.0, Magnesium Level 2.3, Troponin I 0.760H Current Medications Medications (Trade) Dose Ordered Sig/Zara Route PRN Reason Start Time Stop Time Status Last Admin Dose Admin Acetaminophen (Tylenol) 650 mg Q6H PRN ORAL Mild Pain/Temp > 100.5 06/09/17 18:45 07/09/17 18:44 06/10/17 06:29 Aspirin (ASA) 81 mg DAILY ORAL 06/10/17 09:00 07/10/17 08:59 06/11/17 09:23 Atenolol (Tenormin) 25 mg Q12HR PO 06/11/17 21:00 07/11/17 20:59 06/11/17 21:55 Atorvastatin Calcium (Lipitor) 80 mg BEDTIME ORAL 06/10/17 21:00 07/10/17 20:59 06/11/17 21:54 Dextrose (Dextrose 50%) STAT PRN IV Hypoglycemia 06/09/17 15:45 07/09/17 15:44 Furosemide (Lasix) 20 mg DAILY ORAL 06/12/17 09:00 07/10/17 14:59 Hydralazine HCl (Apresoline) 10 mg Q6HR PRN ORAL sbp above 160 06/10/17 22:45 07/10/17 22:44 06/12/17 03:38 Insulin Aspart (NovoLOG) BEFORE MEALS AND HS SUBQ 06/09/17 17:30 07/09/17 17:29 06/12/17 05:57 Insulin Detemir (Levemir) 50 units EVERY 12 HOURS SUBQ 06/09/17 21:00 07/09/17 20:59 06/11/17 21:57 Morphine Sulfate (Morphine Sulfate) 2 mg Q4H PRN IV Moderate Pain (Pain Scale 4-6) 06/10/17 10:00 06/17/17 09:59 Morphine Sulfate (Morphine Sulfate) 4 mg Q4H PRN IVP Severe Pain (Pain Scale 7-10) 06/10/17 08:45 06/17/17 08:44 06/12/17 03:39 Nitroglycerin (Nitro-Bid) 1 inch TID@0600,1200,1800 TOPIC 06/09/17 18:00 07/09/17 17:59 06/12/17 05:54 Nitroglycerin (Ntg) 0.4 mg Q5M PRN SL Prn Chest Pain 06/10/17 15:15 07/10/17 15:14 06/12/17 03:44 Pal ChiangSandra lilly NP Jun 12, 2017 07:40
[2017-06-12 08:00] VITALS: BP 115/64
[2017-06-12] MEDS: Atenolol 12.5mg PO SCH ×2 (09:17→21:44)
[2017-06-12] MEDS: Aspirin Baby 81mg ORAL SCH (09:17)
[2017-06-12] MEDS: Levemir Flexpen SUBQ SCH ×2 (09:19→21:50)
[2017-06-12 12:00] VITALS: BP 134/72
[2017-06-12 16:00] VITALS: BP 130/74
--- NOTE | 2017-06-12 17:08 | Internal Med Progress Note ---
Subjective Date of Service: Jun 12, 2017 Physician Name Jose L Zhou Attending Physician Manjinder Edwards MD Current Medications Medications (Trade) Dose Ordered Sig/Zara Route PRN Reason Start Time Stop Time Status Last Admin Dose Admin Acetaminophen (Tylenol) 650 mg Q6H PRN ORAL Mild Pain/Temp > 100.5 06/09/17 18:45 07/09/17 18:44 06/10/17 06:29 Aspirin (ASA) 81 mg DAILY ORAL 06/10/17 09:00 07/10/17 08:59 06/12/17 09:17 Atenolol (Tenormin) 25 mg Q12HR PO 06/11/17 21:00 07/11/17 20:59 06/12/17 09:17 Atorvastatin Calcium (Lipitor) 80 mg BEDTIME ORAL 06/10/17 21:00 07/10/17 20:59 06/11/17 21:54 Dextrose (Dextrose 50%) STAT PRN IV Hypoglycemia 06/09/17 15:45 07/09/17 15:44 Furosemide (Lasix) 20 mg DAILY ORAL 06/12/17 09:00 07/10/17 14:59 06/12/17 09:16 Hydralazine HCl (Apresoline) 10 mg Q6HR PRN ORAL sbp above 160 06/10/17 22:45 07/10/17 22:44 06/12/17 03:38 Insulin Aspart (NovoLOG) BEFORE MEALS AND HS SUBQ 06/09/17 17:30 07/09/17 17:29 06/12/17 11:57 Insulin Detemir (Levemir) 50 units EVERY 12 HOURS SUBQ 06/09/17 21:00 07/09/17 20:59 06/12/17 09:19 Morphine Sulfate (Morphine Sulfate) 2 mg Q4H PRN IV Moderate Pain (Pain Scale 4-6) 06/10/17 10:00 06/17/17 09:59 Morphine Sulfate (Morphine Sulfate) 4 mg Q4H PRN IVP Severe Pain (Pain Scale 7-10) 06/10/17 08:45 06/17/17 08:44 06/12/17 15:21 Nitroglycerin (Nitro-Bid) 1 inch TID@0600,1200,1800 TOPIC 06/09/17 18:00 07/09/17 17:59 06/12/17 11:56 Nitroglycerin (Ntg) 0.4 mg Q5M PRN SL Prn Chest Pain 06/10/17 15:15 07/10/17 15:14 06/12/17 14:18 Allergies: Coded Allergies: No Known Allergies (Unverified , 06/09/17) ROS Limited/Unobtainable: No Constitutional: Reports: no symptoms HEENT: Reports: no symptoms Cardiovascular: Reports: chest pain Respiratory: Reports: no symptoms Gastrointestinal/Abdominal: Reports: no symptoms Genitourinary: Reports: no symptoms Neurologic/Psychiatric: Reports: no symptoms Subjective 52 YO F admitted with chest pain. Now elevated troponin. Cover for Int Manuelito-Dr Edwards. ECTOR Objective Last Vital Signs Date Time Temp Pulse Resp B/P (MAP) Pulse Ox O2 Delivery O2 Flow Rate FiO2 06/12/17 16:00 97.3 72 20 130/74 97 Nasal Cannula 3.0 06/12/17 07:29 21 Laboratory Tests Test 06/12/17 04:32 White Blood Count 7.9 K/UL (4.8-10.8) Red Blood Count 3.30 M/UL (4.20-5.40) L Hemoglobin 10.4 G/DL (12.0-16.0) L Hematocrit 32.5 % (37.0-47.0) L Mean Corpuscular Volume 98 FL (80-99) Mean Corpuscular Hemoglobin 31.6 PG (27.0-31.0) H Mean Corpuscular Hemoglobin Concent 32.1 G/DL (32.0-36.0) Red Cell Distribution Width 13.0 % (11.6-14.8) Platelet Count 249 K/UL (150-450) Mean Platelet Volume 8.8 FL (6.5-10.1) Neutrophils (%) (Auto) 63.7 % (45.0-75.0) Lymphocytes (%) (Auto) 27.2 % (20.0-45.0) Monocytes (%) (Auto) 6.7 % (1.0-10.0) Eosinophils (%) (Auto) 1.5 % (0.0-3.0) Basophils (%) (Auto) 0.8 % (0.0-2.0) Activated Partial Thromboplast Time 26 SEC (23-33) Sodium Level 137 MMOL/L (136-145) Potassium Level 4.3 MMOL/L (3.5-5.1) Chloride Level 105 MMOL/L (98-107) Carbon Dioxide Level 22 MMOL/L (21-32) Anion Gap 10 mmol/L (5-15) Blood Urea Nitrogen 30 mg/dL (7-18) H Creatinine 1.5 MG/DL (0.55-1.30) H Estimat Glomerular Filtration Rate 43.9 mL/min (>60) Glucose Level 115 MG/DL (74-106) H Calcium Level 9.0 MG/DL (8.5-10.1) Magnesium Level 2.3 MG/DL (1.8-2.4) Troponin I 0.760 ng/mL (0.000-0.056) Objective General Appearance: WD/WN, no apparent distress, alert EENT: PERRL/EOMI, normal ENT inspection Neck: non-tender, normal alignment, supple Cardiovascular: normal peripheral pulses, normal rate, regular rhythm, no gallop/murmur, no JVD Respiratory/Chest: chest wall non-tender, lungs clear, normal breath sounds, no respiratory distress, no accessory muscle use Abdomen: normal bowel sounds, non tender, soft, no organomegaly, no mass Extremities: normal range of motion 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 (2) Diabetic neuropathy (3) Fibromyalgia (4) NSTEMI (non-ST elevated myocardial infarction) Assessment & Plan: See cardiology consult. (5) Hypertension Assessment & Plan: Cont atenolol (6) Diabetes mellitus Assessment & Plan: Cont novolog and levemir (7) Elevated troponin level Status: not improved JOSE L ZHOU Jun 12, 2017 17:08
--- NOTE | 2017-06-12 17:49 | Cardiac Electrophysiology PN ---
Assessment/Plan Assessment/Plan 1. [id number] myocardial infarction based on elevated troponin and chest pain as well as abnormal electrocardiogram, suggestive of inferolateral ischemi. However, the patient also has renal failure with creatinine of 1.6 and troponin levels are flat; 1.6, 1.4, and 1.5. The patient is already on medical therapy with aspirin and Lipitor as well as atenolol. At this time, the patient does not have any chest pain and troponin levels are flat. Echocardiogram has also been performed that showed ejection fraction of 55% with moderate mitral regurgitation. If Troponin again flat tomorrow will schedule for adenosine Cardiolite stress test. 2. Diabetes. 3. Fibromyalgia. Subjective Subjective Had chest pain earlier but ECG was unchanged. Awaiting transfer for cardiac cath. Objective Last 24 Hour Vital Signs Date Time Temp Pulse Resp B/P (MAP) Pulse Ox O2 Delivery O2 Flow Rate FiO2 06/12/17 16:00 97.3 72 20 130/74 97 Nasal Cannula 3.0 06/12/17 14:18 135/71 06/12/17 14:11 132/77 06/12/17 14:05 129/71 06/12/17 12:00 97.1 66 20 134/72 97 Room Air 06/12/17 11:56 115/64 06/12/17 11:50 88 06/12/17 08:01 73 06/12/17 08:00 97.9 72 20 115/64 95 Room Air 06/12/17 07:29 Room Air 06/12/17 07:29 97 Room Air 21 06/12/17 05:54 164/90 06/12/17 04:00 79 06/12/17 04:00 97.0 82 18 164/90 97 Room Air 06/12/17 03:44 164/90 06/12/17 03:38 164/90 06/12/17 00:00 98.1 77 18 142/77 98 Room Air 06/12/17 00:00 76 06/11/17 20:00 84 06/11/17 18:51 149/77 06/11/17 18:00 82 Laboratory Tests Test 06/12/17 04:32 White Blood Count 7.9 K/UL (4.8-10.8) Red Blood Count 3.30 M/UL (4.20-5.40) L Hemoglobin 10.4 G/DL (12.0-16.0) L Hematocrit 32.5 % (37.0-47.0) L Mean Corpuscular Volume 98 FL (80-99) Mean Corpuscular Hemoglobin 31.6 PG (27.0-31.0) H Mean Corpuscular Hemoglobin Concent 32.1 G/DL (32.0-36.0) Red Cell Distribution Width 13.0 % (11.6-14.8) Platelet Count 249 K/UL (150-450) Mean Platelet Volume 8.8 FL (6.5-10.1) Neutrophils (%) (Auto) 63.7 % (45.0-75.0) Lymphocytes (%) (Auto) 27.2 % (20.0-45.0) Monocytes (%) (Auto) 6.7 % (1.0-10.0) Eosinophils (%) (Auto) 1.5 % (0.0-3.0) Basophils (%) (Auto) 0.8 % (0.0-2.0) Activated Partial Thromboplast Time 26 SEC (23-33) Sodium Level 137 MMOL/L (136-145) Potassium Level 4.3 MMOL/L (3.5-5.1) Chloride Level 105 MMOL/L (98-107) Carbon Dioxide Level 22 MMOL/L (21-32) Anion Gap 10 mmol/L (5-15) Blood Urea Nitrogen 30 mg/dL (7-18) H Creatinine 1.5 MG/DL (0.55-1.30) H Estimat Glomerular Filtration Rate 43.9 mL/min (>60) Glucose Level 115 MG/DL (74-106) H Calcium Level 9.0 MG/DL (8.5-10.1) Magnesium Level 2.3 MG/DL (1.8-2.4) Troponin I 0.760 ng/mL (0.000-0.056) Objective NECK: No JVD. LUNGS: Clear. CARDIOVASCULAR: Regular S1 and S2 with no gallop or murmur. ABDOMEN: Soft. EXTREMITIES: No pitting edema. RITA SETH Jun 12, 2017 17:49
[2017-06-12 20:00] VITALS: BP 147/83
[2017-06-12] MEDS: Atorvastatin 80mg tab ORAL SCH (21:43)
[2017-06-13] VITALS: BP 118/62
[2017-06-13] MEDS: Morphine Sulfate 4mg/ml Inj IVP PRN ×5 (01:06→20:38)
[2017-06-13 04:00] VITALS: BP 111/66
[2017-06-13 06:03] LABS: BASOPHILS % (AUTO) 0.5 % (0.0-2.0); EOSINOPHILS % (AUTO) 1.2 % (0.0-3.0); HEMATOCRIT 30.1 % (37.0-47.0); HEMOGLOBIN 9.8 G/DL (12.0-16.0); LYMPHOCYTES % (AUTO) 29.6 % (20.0-45.0); MEAN CORPUSCULAR VOLUME 98 FL (80-99); MONOCYTES % (AUTO) 4.4 % (1.0-10.0); NEUTROPHILS % (AUTO) 64.3 % (45.0-75.0); PLATELET COUNT 359 K/UL (150-450); RED BLOOD COUNT 3.07 M/UL (4.20-5.40); RED CELL DISTRIBUTION WIDTH 13.1 % (11.6-14.8); WHITE BLOOD COUNT 9.3 K/UL (4.8-10.8)
[2017-06-13 06:12] LABS: ANION GAP 9 mmol/L (5-15); BLOOD UREA NITROGEN 38 mg/dL (7-18); CALCIUM 9.1 MG/DL (8.5-10.1); CARBON DIOXIDE 23 MMOL/L (21-32); CHLORIDE 107 MMOL/L (98-107); CREATININE 1.7 MG/DL (0.55-1.30); POTASSIUM 4.3 MMOL/L (3.5-5.1); SODIUM 139 MMOL/L (136-145)
[2017-06-13] MEDS: NovoLOG Insulin Flexpen SUBQ SCH ×4 (06:30→21:11)
[2017-06-13] MEDS: Nitroglycerin 2% oint pkt TOPIC SCH ×3 (07:00→17:26)
[2017-06-13 08:00] VITALS: BP 137/81
[2017-06-13] MEDS: Aspirin Baby 81mg ORAL SCH (09:33)
[2017-06-13] MEDS: Atenolol 12.5mg PO SCH ×2 (09:34→20:39)
[2017-06-13] MEDS: Levemir Flexpen SUBQ SCH ×2 (09:35→21:11)
--- NOTE | 2017-06-13 11:23 | Diagnostic Imaging Report ---
Indication: RENAL-A Technique: Renal ultrasound Findings: Kidneys: Right kidney is normal. Left kidney is not visualized. There is no right hydronephrosis. IVC: The visualized portion of the inferior vena cava appears normal. Bladder: The bladder is unremarkable. There is a small right pleural effusion. Impression: Small right pleural effusion. Normal right kidney. Left kidney not visualized.
[2017-06-13] MEDS: Nitroglycerin Subl 0.4mg tab SL PRN ×3 (11:42→17:25)
[2017-06-13 12:00] VITALS: BP 132/73
[2017-06-13] MEDS ORDERED: Zolpidem 5mg tab ORAL PRN (12:45)
--- NOTE | 2017-06-13 13:18 | Pulmonology Progress Note ---
Assessment/Plan Problems: (1) NSTEMI (non-ST elevated myocardial infarction) (2) CHF exacerbation (3) Diabetes mellitus (4) Hypertension Assessment/Plan awaiting transfer f/u cardio recommendation titrate fio2 Subjective ROS Limited/Unobtainable: No Interval Events: no new complains Allergies: Coded Allergies: No Known Allergies (Unverified , 06/09/17) Objective Last 24 Hour Vital Signs Date Time Temp Pulse Resp B/P (MAP) Pulse Ox O2 Delivery O2 Flow Rate FiO2 06/13/17 12:22 132/73 06/13/17 12:00 97.7 82 18 132/73 97 Nasal Cannula 3.0 06/13/17 12:00 82 06/13/17 11:42 132/73 06/13/17 08:00 98.4 79 18 137/81 93 Nasal Cannula 3.0 06/13/17 08:00 77 06/13/17 07:00 111/66 06/13/17 06:34 98.4 06/13/17 04:58 70 06/13/17 04:00 98.4 70 18 111/66 98 Nasal Cannula 3.0 06/13/17 00:00 96.0 70 18 118/62 96 Nasal Cannula 3.0 06/12/17 20:54 146/84 06/12/17 20:00 98.2 72 20 147/83 97 Nasal Cannula 3.0 06/12/17 20:00 80 06/12/17 18:45 146/84 06/12/17 16:00 97.3 72 20 130/74 97 Nasal Cannula 3.0 06/12/17 15:24 71 06/12/17 14:18 135/71 06/12/17 14:11 132/77 06/12/17 14:05 129/71 General Appearance: WD/WN HEENT: normocephalic, atraumatic Respiratory/Chest: chest wall non-tender, normal breath sounds Breasts: no masses Cardiovascular: normal peripheral pulses Abdomen: normal bowel sounds, no organomegaly Genitourinary: normal external genitalia Skin: no rash, no lesions Laboratory Tests 06/13/17 03:55: White Blood Count 9.3, Red Blood Count 3.07L, Hemoglobin 9.8L, Hematocrit 30.1L , Mean Corpuscular Volume 98, Mean Corpuscular Hemoglobin 31.9H, Mean Corpuscular Hemoglobin Concent 32.6, Red Cell Distribution Width 13.1, Platelet Count 359, Mean Platelet Volume 8.4, Neutrophils (%) (Auto) 64.3, Lymphocytes (% ) (Auto) 29.6, Monocytes (%) (Auto) 4.4, Eosinophils (%) (Auto) 1.2, Basophils ( %) (Auto) 0.5, Sodium Level 139, Potassium Level 4.3, Chloride Level 107, Carbon Dioxide Level 23, Anion Gap 9, Blood Urea Nitrogen 38H, Creatinine 1.7H, Estimat Glomerular Filtration Rate 37.9, Glucose Level 95, Calcium Level 9.1, Troponin I 1.168H, Pro-B-Type Natriuretic Peptide 5959H Current Medications Medications (Trade) Dose Ordered Sig/Zara Route PRN Reason Start Time Stop Time Status Last Admin Dose Admin Acetaminophen (Tylenol) 650 mg Q6H PRN ORAL Mild Pain/Temp > 100.5 06/09/17 18:45 07/09/17 18:44 06/10/17 06:29 Aspirin (ASA) 81 mg DAILY ORAL 06/10/17 09:00 07/10/17 08:59 06/13/17 09:33 Atenolol (Tenormin) 25 mg Q12HR PO 06/11/17 21:00 07/11/17 20:59 06/13/17 09:34 Atorvastatin Calcium (Lipitor) 80 mg BEDTIME ORAL 06/10/17 21:00 07/10/17 20:59 06/12/17 21:43 Dextrose (Dextrose 50%) STAT PRN IV Hypoglycemia 06/09/17 15:45 07/09/17 15:44 Furosemide (Lasix) 20 mg DAILY ORAL 06/12/17 09:00 07/10/17 14:59 06/13/17 09:34 Hydralazine HCl (Apresoline) 10 mg Q6HR PRN ORAL sbp above 160 06/10/17 22:45 07/10/17 22:44 06/12/17 03:38 Insulin Aspart (NovoLOG) BEFORE MEALS AND HS SUBQ 06/09/17 17:30 07/09/17 17:29 06/13/17 12:24 Insulin Detemir (Levemir) 50 units EVERY 12 HOURS SUBQ 06/09/17 21:00 07/09/17 20:59 06/13/17 09:35 Morphine Sulfate (Morphine Sulfate) 2 mg Q4H PRN IV Moderate Pain (Pain Scale 4-6) 06/10/17 10:00 06/17/17 09:59 Morphine Sulfate (Morphine Sulfate) 4 mg Q4H PRN IVP Severe Pain (Pain Scale 7-10) 06/10/17 08:45 06/17/17 08:44 06/13/17 10:50 Nitroglycerin (Nitro-Bid) 1 inch TID@0600,1200,1800 TOPIC 06/09/17 18:00 07/09/17 17:59 06/13/17 12:22 Nitroglycerin (Ntg) 0.4 mg Q5M PRN SL Prn Chest Pain 06/10/17 15:15 07/10/17 15:14 06/13/17 11:42 Zolpidem Tartrate (Ambien) 5 mg HSPRN PRN ORAL Insomnia 06/13/17 12:45 06/20/17 12:44 KEVNI HEARD Jun 13, 2017 13:18
[2017-06-13] MEDS ORDERED: NS 55ml IV ONE (14:06)
[2017-06-13] MEDS ORDERED: Lidocaine 1% MPF 10mg/ml 5ml ONE (14:06)
[2017-06-13] MEDS ORDERED: Lexiscan 0.4mg/5ml syringe IV ONE (14:30)
--- NOTE | 2017-06-13 14:56 | Cardiac Electrophysiology PN ---
Assessment/Plan Assessment/Plan 1. [id number] myocardial infarction based on elevated troponin and chest pain as well as abnormal electrocardiogram, suggestive of inferolateral ischemia. However, the patient also has renal failure with creatinine of 1.6 and troponin levels are flat; 1.6, 1.4, and 1.5. The patient is already on medical therapy with aspirin and Lipitor as well as atenolol. At this time, the patient does not have any chest pain and troponin levels are flat. Echocardiogram has also been performed that showed ejection fraction of 55% with moderate mitral regurgitation. Had adenosine Cardiolite stress test today. Nuclear report pending. 2. Diabetes. 3. Fibromyalgia. DW RN Subjective Subjective Comfortable in NAD. Had Lexiscan Cardiolite by Dr Zee today. Nuclear results pending.. Objective Last 24 Hour Vital Signs Date Time Temp Pulse Resp B/P (MAP) Pulse Ox O2 Delivery O2 Flow Rate FiO2 06/13/17 14:40 132/74 06/13/17 12:22 132/73 06/13/17 12:00 97.7 82 18 132/73 97 Nasal Cannula 3.0 06/13/17 12:00 82 06/13/17 11:42 132/73 06/13/17 08:00 98.4 79 18 137/81 93 Nasal Cannula 3.0 06/13/17 08:00 77 06/13/17 07:00 111/66 06/13/17 06:34 98.4 06/13/17 04:58 70 06/13/17 04:00 98.4 70 18 111/66 98 Nasal Cannula 3.0 06/13/17 00:00 96.0 70 18 118/62 96 Nasal Cannula 3.0 06/12/17 20:54 146/84 06/12/17 20:00 98.2 72 20 147/83 97 Nasal Cannula 3.0 06/12/17 20:00 80 06/12/17 18:45 146/84 06/12/17 16:00 97.3 72 20 130/74 97 Nasal Cannula 3.0 06/12/17 15:24 71 Laboratory Tests Test 06/13/17 03:55 White Blood Count 9.3 K/UL (4.8-10.8) Red Blood Count 3.07 M/UL (4.20-5.40) L Hemoglobin 9.8 G/DL (12.0-16.0) L Hematocrit 30.1 % (37.0-47.0) L Mean Corpuscular Volume 98 FL (80-99) Mean Corpuscular Hemoglobin 31.9 PG (27.0-31.0) H Mean Corpuscular Hemoglobin Concent 32.6 G/DL (32.0-36.0) Red Cell Distribution Width 13.1 % (11.6-14.8) Platelet Count 359 K/UL (150-450) Mean Platelet Volume 8.4 FL (6.5-10.1) Neutrophils (%) (Auto) 64.3 % (45.0-75.0) Lymphocytes (%) (Auto) 29.6 % (20.0-45.0) Monocytes (%) (Auto) 4.4 % (1.0-10.0) Eosinophils (%) (Auto) 1.2 % (0.0-3.0) Basophils (%) (Auto) 0.5 % (0.0-2.0) Sodium Level 139 MMOL/L (136-145) Potassium Level 4.3 MMOL/L (3.5-5.1) Chloride Level 107 MMOL/L (98-107) Carbon Dioxide Level 23 MMOL/L (21-32) Anion Gap 9 mmol/L (5-15) Blood Urea Nitrogen 38 mg/dL (7-18) H Creatinine 1.7 MG/DL (0.55-1.30) H Estimat Glomerular Filtration Rate 37.9 mL/min (>60) Glucose Level 95 MG/DL (74-106) Calcium Level 9.1 MG/DL (8.5-10.1) Troponin I 1.168 ng/mL (0.000-0.056) Pro-B-Type Natriuretic Peptide 5959 pg/mL (0-125) H Objective NECK: No JVD. LUNGS: Clear. CARDIOVASCULAR: Regular S1 and S2 with no gallop or murmur. ABDOMEN: Soft. EXTREMITIES: No pitting edema. RITA SETH Jun 13, 2017 14:56
[2017-06-13 16:06] VITALS: BP 124/57
--- NOTE | 2017-06-13 18:50 | Internal Med Progress Note ---
Subjective Date of Service: Jun 13, 2017 Physician Name Jose L Byrne Attending Physician Manjinder Edwards MD Current Medications Medications (Trade) Dose Ordered Sig/Zara Route PRN Reason Start Time Stop Time Status Last Admin Dose Admin Acetaminophen (Tylenol) 650 mg Q6H PRN ORAL Mild Pain/Temp > 100.5 06/09/17 18:45 07/09/17 18:44 06/10/17 06:29 Aspirin (ASA) 81 mg DAILY ORAL 06/10/17 09:00 07/10/17 08:59 06/13/17 09:33 Atenolol (Tenormin) 25 mg Q12HR PO 06/11/17 21:00 07/11/17 20:59 06/13/17 09:34 Atorvastatin Calcium (Lipitor) 80 mg BEDTIME ORAL 06/10/17 21:00 07/10/17 20:59 06/12/17 21:43 Dextrose (Dextrose 50%) STAT PRN IV Hypoglycemia 06/09/17 15:45 07/09/17 15:44 Furosemide (Lasix) 20 mg DAILY ORAL 06/12/17 09:00 07/10/17 14:59 06/13/17 09:34 Hydralazine HCl (Apresoline) 10 mg Q6HR PRN ORAL sbp above 160 06/10/17 22:45 07/10/17 22:44 06/12/17 03:38 Insulin Aspart (NovoLOG) BEFORE MEALS AND HS SUBQ 06/09/17 17:30 07/09/17 17:29 06/13/17 17:23 Insulin Detemir (Levemir) 50 units EVERY 12 HOURS SUBQ 06/09/17 21:00 07/09/17 20:59 06/13/17 09:35 Morphine Sulfate (Morphine Sulfate) 2 mg Q4H PRN IV Moderate Pain (Pain Scale 4-6) 06/10/17 10:00 06/17/17 09:59 Morphine Sulfate (Morphine Sulfate) 4 mg Q4H PRN IVP Severe Pain (Pain Scale 7-10) 06/10/17 08:45 06/17/17 08:44 06/13/17 16:22 Nitroglycerin (Nitro-Bid) 1 inch TID@0600,1200,1800 TOPIC 06/09/17 18:00 07/09/17 17:59 06/13/17 12:22 Nitroglycerin (Ntg) 0.4 mg Q5M PRN SL Prn Chest Pain 06/10/17 15:15 07/10/17 15:14 06/13/17 17:25 Zolpidem Tartrate (Ambien) 5 mg HSPRN PRN ORAL Insomnia 06/13/17 12:45 06/20/17 12:44 Allergies: Coded Allergies: No Known Allergies (Unverified , 06/09/17) ROS Limited/Unobtainable: No Constitutional: Reports: no symptoms HEENT: Reports: no symptoms Cardiovascular: Reports: no symptoms Respiratory: Reports: no symptoms Gastrointestinal/Abdominal: Reports: no symptoms Genitourinary: Reports: no symptoms Neurologic/Psychiatric: Reports: no symptoms Subjective 52 YO F admitted with chest pain. Now elevated troponin. Cover for Int Manuelito-Dr Edwards. ECTOR. Await cardiolite stress test result Objective Last Vital Signs Date Time Temp Pulse Resp B/P (MAP) Pulse Ox O2 Delivery O2 Flow Rate FiO2 06/13/17 17:26 124/57 06/13/17 16:07 82 06/13/17 16:06 97.0 18 93 Room Air 06/13/17 12:00 3.0 06/12/17 07:29 21 Laboratory Tests Test 06/13/17 03:55 White Blood Count 9.3 K/UL (4.8-10.8) Red Blood Count 3.07 M/UL (4.20-5.40) L Hemoglobin 9.8 G/DL (12.0-16.0) L Hematocrit 30.1 % (37.0-47.0) L Mean Corpuscular Volume 98 FL (80-99) Mean Corpuscular Hemoglobin 31.9 PG (27.0-31.0) H Mean Corpuscular Hemoglobin Concent 32.6 G/DL (32.0-36.0) Red Cell Distribution Width 13.1 % (11.6-14.8) Platelet Count 359 K/UL (150-450) Mean Platelet Volume 8.4 FL (6.5-10.1) Neutrophils (%) (Auto) 64.3 % (45.0-75.0) Lymphocytes (%) (Auto) 29.6 % (20.0-45.0) Monocytes (%) (Auto) 4.4 % (1.0-10.0) Eosinophils (%) (Auto) 1.2 % (0.0-3.0) Basophils (%) (Auto) 0.5 % (0.0-2.0) Sodium Level 139 MMOL/L (136-145) Potassium Level 4.3 MMOL/L (3.5-5.1) Chloride Level 107 MMOL/L (98-107) Carbon Dioxide Level 23 MMOL/L (21-32) Anion Gap 9 mmol/L (5-15) Blood Urea Nitrogen 38 mg/dL (7-18) H Creatinine 1.7 MG/DL (0.55-1.30) H Estimat Glomerular Filtration Rate 37.9 mL/min (>60) Glucose Level 95 MG/DL (74-106) Calcium Level 9.1 MG/DL (8.5-10.1) Troponin I 1.168 ng/mL (0.000-0.056) Pro-B-Type Natriuretic Peptide 5959 pg/mL (0-125) H Intake and Output 06/13/17 06/14/17 19:00 07:00 Intake Total 280 ml Balance 280 ml Intake Oral 280 ml # Bowel Movements 2 Objective General Appearance: WD/WN, no apparent distress, alert EENT: PERRL/EOMI, normal ENT inspection Neck: non-tender, normal alignment, supple Cardiovascular: normal peripheral pulses, normal rate, regular rhythm, no gallop/murmur, no JVD Respiratory/Chest: chest wall non-tender, lungs clear, normal breath sounds, no respiratory distress, no accessory muscle use Abdomen: normal bowel sounds, non tender, soft, no organomegaly, no mass Extremities: normal range of motion 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 (2) Diabetic neuropathy (3) Fibromyalgia (4) NSTEMI (non-ST elevated myocardial infarction) Assessment & Plan: [place] Cardiolite stress test result. See cardiology consult. (5) Hypertension Assessment & Plan: Cont atenolol (6) Diabetes mellitus Assessment & Plan: Cont novolog and levemir (7) Elevated troponin level Status: JOSE L Gonzales Jun 13, 2017 18:50
[2017-06-13 20:00] VITALS: BP 127/72
--- NOTE | 2017-06-13 20:18 | Cardiology Report ---
APPROVED REPORT EKG Measurement Heart [id number] [place] 142P41 [id number] Normal sinus rhythm Possible Left atrial enlargement Abnormal ECG
--- NOTE | 2017-06-13 20:18 | Cardiology Report ---
APPROVED REPORT EKG Measurement Heart [id number] [place] 142P41 [id number] Normal sinus rhythm Possible Left atrial enlargement Abnormal ECG
--- NOTE | 2017-06-13 20:18 | Cardiology Report ---
APPROVED REPORT EKG Measurement Heart [id number] [place] 142P41 [id number] Normal sinus rhythm Possible Left atrial enlargement Abnormal ECG
[2017-06-13] MEDS: Atorvastatin 80mg tab ORAL SCH (20:38)
[2017-06-14] VITALS: BP 134/66
[2017-06-14] MEDS: Morphine Sulfate 4mg/ml Inj IVP PRN ×4 (01:30→15:23)
[2017-06-14 04:00] VITALS: BP 124/74
[2017-06-14 05:30] LABS: BASOPHILS % (AUTO) 0.6 % (0.0-2.0); EOSINOPHILS % (AUTO) 0.5 % (0.0-3.0); HEMATOCRIT 28.4 % (37.0-47.0); HEMOGLOBIN 9.4 G/DL (12.0-16.0); LYMPHOCYTES % (AUTO) 15.7 % (20.0-45.0); MEAN CORPUSCULAR VOLUME 97 FL (80-99); MONOCYTES % (AUTO) 4.7 % (1.0-10.0); NEUTROPHILS % (AUTO) 78.5 % (45.0-75.0); PLATELET COUNT 398 K/UL (150-450); RED BLOOD COUNT 2.91 M/UL (4.20-5.40); RED CELL DISTRIBUTION WIDTH 14.1 % (11.6-14.8); WHITE BLOOD COUNT 12.7 K/UL (4.8-10.8)
[2017-06-14] MEDS: Nitroglycerin 2% oint pkt TOPIC SCH ×3 (06:00→17:04)
[2017-06-14 06:01] LABS: ANION GAP 11 mmol/L (5-15); BLOOD UREA NITROGEN 42 mg/dL (7-18); CALCIUM 9.1 MG/DL (8.5-10.1); CARBON DIOXIDE 22 MMOL/L (21-32); CHLORIDE 108 MMOL/L (98-107); CREATININE 1.7 MG/DL (0.55-1.30); POTASSIUM 4.7 MMOL/L (3.5-5.1); SODIUM 141 MMOL/L (136-145)
[2017-06-14] MEDS: NovoLOG Insulin Flexpen SUBQ SCH ×3 (06:24→16:40)
[2017-06-14 08:00] VITALS: BP 134/78
[2017-06-14] MEDS ORDERED: Heparin 25,000u/D5W 500ml 500 ML IV SCH ×2 (08:00→17:00)
[2017-06-14] MEDS ORDERED: Heparin 5000 units/ml inj IV ONE ×2 (08:00→17:00)
[2017-06-14] MEDS: Nitroglycerin Subl 0.4mg tab SL PRN (08:24)
[2017-06-14 08:26] LABS: BASOPHILS % (AUTO) 0.7 % (0.0-2.0); EOSINOPHILS % (AUTO) 0.6 % (0.0-3.0); HEMATOCRIT 29.4 % (37.0-47.0); HEMOGLOBIN 9.4 G/DL (12.0-16.0); LYMPHOCYTES % (AUTO) 18.2 % (20.0-45.0); MEAN CORPUSCULAR VOLUME 97 FL (80-99); MONOCYTES % (AUTO) 6.2 % (1.0-10.0); NEUTROPHILS % (AUTO) 74.3 % (45.0-75.0); PLATELET COUNT 436 K/UL (150-450); RED BLOOD COUNT 3.03 M/UL (4.20-5.40); RED CELL DISTRIBUTION WIDTH 13.6 % (11.6-14.8); WHITE BLOOD COUNT 12.7 K/UL (4.8-10.8)
[2017-06-14] MEDS: Atenolol 12.5mg PO SCH (08:27)
[2017-06-14] MEDS: Aspirin Baby 81mg ORAL SCH (08:28)
[2017-06-14] MEDS: Levemir Flexpen SUBQ SCH (08:29)
--- NOTE | 2017-06-14 08:48 | Pulmonology Progress Note ---
Assessment/Plan Problems: (1) NSTEMI (non-ST elevated myocardial infarction) (2) CHF exacerbation (3) Diabetes mellitus (4) Hypertension Assessment/Plan awaiting transfer f/u cardio recommendation troponin juan f again titrate fio2 Subjective ROS Limited/Unobtainable: No Constitutional: Reports: no symptoms HEENT: Repors: no symptoms Allergies: Coded Allergies: No Known Allergies (Unverified , 06/09/17) Objective Last 24 Hour Vital Signs Date Time Temp Pulse Resp B/P (MAP) Pulse Ox O2 Delivery O2 Flow Rate FiO2 06/14/17 08:24 138/78 06/14/17 07:15 99.0 06/14/17 06:00 108/70 06/14/17 04:00 95 06/14/17 04:00 99.0 90 18 124/74 95 Room Air 06/14/17 00:00 98.4 92 20 134/66 94 Room Air 06/14/17 00:00 91 06/13/17 20:00 98.7 90 20 127/72 94 Room Air 06/13/17 20:00 89 06/13/17 17:26 124/57 06/13/17 17:25 124/57 06/13/17 16:07 82 06/13/17 16:06 97.0 77 18 124/57 93 Room Air 06/13/17 14:40 132/74 06/13/17 12:22 132/73 06/13/17 12:00 97.7 82 18 132/73 97 Nasal Cannula 3.0 06/13/17 12:00 82 06/13/17 11:42 132/73 General Appearance: WD/WN HEENT: normocephalic, atraumatic Respiratory/Chest: chest wall non-tender, lungs clear Breasts: no masses Cardiovascular: normal peripheral pulses, normal rate Abdomen: normal bowel sounds, soft, non tender Genitourinary: normal external genitalia Extremities: no cyanosis Skin: no rash 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 Lymphatic: no neck adenopathy Laboratory Tests 06/14/17 03:15: White Blood Count 12.7H, Red Blood Count 2.91L, Hemoglobin 9.4L, Hematocrit 28.4L, Mean Corpuscular Volume 97, Mean Corpuscular Hemoglobin 32.2H, Mean Corpuscular Hemoglobin Concent 33.0, Red Cell Distribution Width 14.1, Platelet Count 398, Mean Platelet Volume 8.5, Neutrophils (%) (Auto) 78.5H, Lymphocytes ( %) (Auto) 15.7L, Monocytes (%) (Auto) 4.7, Eosinophils (%) (Auto) 0.5, Basophils (%) (Auto) 0.6, Sodium Level 141, Potassium Level 4.7, Chloride Level 108H, Carbon Dioxide Level 22, Anion Gap 11, Blood Urea Nitrogen 42H, Creatinine 1.7H, Estimat Glomerular Filtration Rate 37.9, Glucose Level 96, Calcium Level 9.1, Troponin I 5.880H, Pro-B-Type Natriuretic Peptide 6565H 06/14/17 08:10: White Blood Count 12.7H, Red Blood Count 3.03L, Hemoglobin 9.4L, Hematocrit 29.4L, Mean Corpuscular Volume 97, Mean Corpuscular Hemoglobin 30.9, Mean Corpuscular Hemoglobin Concent 31.9L, Red Cell Distribution Width 13.6, Platelet Count 436, Mean Platelet Volume 8.0, Neutrophils (%) (Auto) 74.3, Lymphocytes (%) (Auto) 18.2L, Monocytes (%) (Auto) 6.2, Eosinophils (%) (Auto) 0.6, Basophils (%) (Auto) 0.7, Activated Partial Thromboplast Time 27 Current Medications Medications (Trade) Dose Ordered Sig/Zara Route PRN Reason Start Time Stop Time Status Last Admin Dose Admin Acetaminophen (Tylenol) 650 mg Q6H PRN ORAL Mild Pain/Temp > 100.5 06/09/17 18:45 07/09/17 18:44 06/10/17 06:29 Aspirin (ASA) 81 mg DAILY ORAL 06/10/17 09:00 07/10/17 08:59 06/14/17 08:28 Atenolol (Tenormin) 25 mg Q12HR PO 06/11/17 21:00 07/11/17 20:59 06/14/17 08:27 Atorvastatin Calcium (Lipitor) 80 mg BEDTIME ORAL 06/10/17 21:00 07/10/17 20:59 06/13/17 20:38 Dextrose (Dextrose 50%) STAT PRN IV Hypoglycemia 06/09/17 15:45 07/09/17 15:44 Furosemide (Lasix) 20 mg DAILY ORAL 06/12/17 09:00 07/10/17 14:59 06/14/17 08:28 Heparin Sodium/ Dextrose 500 ml @ 14.152 mls/ hr adjust per protocol IV 06/14/17 08:00 07/14/17 07:59 Hydralazine HCl (Apresoline) 10 mg Q6HR PRN ORAL sbp above 160 06/10/17 22:45 07/10/17 22:44 06/12/17 03:38 Insulin Aspart (NovoLOG) BEFORE MEALS AND HS SUBQ 06/09/17 17:30 07/09/17 17:29 06/13/17 21:11 Insulin Detemir (Levemir) 50 units EVERY 12 HOURS SUBQ 06/09/17 21:00 07/09/17 20:59 06/14/17 08:29 Morphine Sulfate (Morphine Sulfate) 2 mg Q4H PRN IV Moderate Pain (Pain Scale 4-6) 06/10/17 10:00 06/17/17 09:59 Morphine Sulfate (Morphine Sulfate) 4 mg Q4H PRN IVP Severe Pain (Pain Scale 7-10) 06/10/17 08:45 06/17/17 08:44 06/14/17 06:45 Nitroglycerin (Nitro-Bid) 1 inch TID@0600,1200,1800 TOPIC 06/09/17 18:00 07/09/17 17:59 06/13/17 12:22 Nitroglycerin (Ntg) 0.4 mg Q5M PRN SL Prn Chest Pain 06/10/17 15:15 07/10/17 15:14 06/14/17 08:24 Sodium Chloride 1,000 ml @ 75 mls/hr [id number] ONCE IV 06/14/17 07:15 06/14/17 20:34 Zolpidem Tartrate (Ambien) 5 mg HSPRN PRN ORAL Insomnia 06/13/17 12:45 06/20/17 12:44 06/13/17 20:38 KEVIN GE Jun 14, 2017 08:48
--- NOTE | 2017-06-14 10:26 | Cardiac Electrophysiology PN ---
Assessment/Plan Assessment/Plan 1. Lny-[id number] myocardial infarction based on elevated troponin and chest pain as well as abnormal electrocardiogram with inferolateral ischemia. Also has renal failure with creatinine of 1.6 and troponin levels were flat; 1.6, 1.4 , and 1.5. Had Lexiscan Cardiolite yesterday and results pending. However developed CP again this am and troponin now increased from 1.5 to 5.Awaiting transfer for cardiac cath pending insurance approval of facility. Continue aspirin, heparin drip, Lipitor and atenolol. Echocardiogram EF 55% . Will get Stat ECG this am again 2. Diabetes. 3. Fibromyalgia. DW RN and relief charge nurse and case management Subjective Subjective Comfortable in NAD. Had Lexiscan Cardiolite by Dr. Zee yesterday and resting part today. Nuclear results pending. Developed chest pain again today and Troponin now jumped from 1 to 5. Heparin drip was resumed. Awaiting transfer for cardiac cath.. Objective Last 24 Hour Vital Signs Date Time Temp Pulse Resp B/P (MAP) Pulse Ox O2 Delivery O2 Flow Rate FiO2 06/14/17 08:24 138/78 06/14/17 07:15 99.0 06/14/17 06:00 108/70 06/14/17 04:00 95 06/14/17 04:00 99.0 90 18 124/74 95 Room Air 06/14/17 00:00 98.4 92 20 134/66 94 Room Air 06/14/17 00:00 91 06/13/17 20:00 98.7 90 20 127/72 94 Room Air 06/13/17 20:00 89 06/13/17 17:26 124/57 06/13/17 17:25 124/57 06/13/17 16:07 82 06/13/17 16:06 97.0 77 18 124/57 93 Room Air 06/13/17 14:40 132/74 06/13/17 12:22 132/73 06/13/17 12:00 97.7 82 18 132/73 97 Nasal Cannula 3.0 06/13/17 12:00 82 06/13/17 11:42 132/73 Laboratory Tests Test 06/14/17 03:15 06/14/17 08:10 White Blood Count 12.7 K/UL (4.8-10.8) H 12.7 K/UL (4.8-10.8) H Red Blood Count 2.91 M/UL (4.20-5.40) L 3.03 M/UL (4.20-5.40) L Hemoglobin 9.4 G/DL (12.0-16.0) L 9.4 G/DL (12.0-16.0) L Hematocrit 28.4 % (37.0-47.0) L 29.4 % (37.0-47.0) L Mean Corpuscular Volume 97 FL (80-99) 97 FL (80-99) Mean Corpuscular Hemoglobin 32.2 PG (27.0-31.0) H 30.9 PG (27.0-31.0) Mean Corpuscular Hemoglobin Concent 33.0 G/DL (32.0-36.0) 31.9 G/DL (32.0-36.0) L Red Cell Distribution Width 14.1 % (11.6-14.8) 13.6 % (11.6-14.8) Platelet Count 398 K/UL (150-450) 436 K/UL (150-450) Mean Platelet Volume 8.5 FL (6.5-10.1) 8.0 FL (6.5-10.1) Neutrophils (%) (Auto) 78.5 % (45.0-75.0) H 74.3 % (45.0-75.0) Lymphocytes (%) (Auto) 15.7 % (20.0-45.0) L 18.2 % (20.0-45.0) L Monocytes (%) (Auto) 4.7 % (1.0-10.0) 6.2 % (1.0-10.0) Eosinophils (%) (Auto) 0.5 % (0.0-3.0) 0.6 % (0.0-3.0) Basophils (%) (Auto) 0.6 % (0.0-2.0) 0.7 % (0.0-2.0) Sodium Level 141 MMOL/L (136-145) Potassium Level 4.7 MMOL/L (3.5-5.1) Chloride Level 108 MMOL/L (98-107) H Carbon Dioxide Level 22 MMOL/L (21-32) Anion Gap 11 mmol/L (5-15) Blood Urea Nitrogen 42 mg/dL (7-18) H Creatinine 1.7 MG/DL (0.55-1.30) H Estimat Glomerular Filtration Rate 37.9 mL/min (>60) Glucose Level 96 MG/DL (74-106) Calcium Level 9.1 MG/DL (8.5-10.1) Troponin I 5.880 ng/mL (0.000-0.056) Pro-B-Type Natriuretic Peptide 6565 pg/mL (0-125) H Activated Partial Thromboplast Time 27 SEC (23-33) Objective NECK: No JVD. LUNGS: Clear. CARDIOVASCULAR: Regular S1 and S2 with no gallop or murmur. ABDOMEN: Soft. EXTREMITIES: No pitting edema. RITA SETH Jun 14, 2017 10:26
[2017-06-14 12:00] VITALS: BP 127/80
--- NOTE | 2017-06-14 12:33 | Diagnostic Imaging Report ---
Indication: chest pain Technique: The study was conducted under the supervision of a revenue officer. lexiscan (regadenoson) infusion over 10 seconds followed by intravenous administration of 29.2 mCi of technetium 99m Myoview was performed. Three plane SPECT imaging of the heart was then performed. A resting study was performed as part of the one-day protocol with 30.5 mCi of technetium 99m myoview injected intravenously at that time. Three plane SPECT imaging of the heart was obtained. Comparison: None Clinical data: 1. Clinical response: Non ischemic 2. Electrocardiographic response: Non ischemic Findings: The myocardial perfusion scan demonstrates relatively fixed, fairly large perfusion defect involving the lateral wall and inferolateral segment consistent with a myocardial infarct. LVEF estimated at 64%. There are no reversible segments to suggest ischemia. Impression: No evidence of myocardial ischemia. Lateral and inferolateral segment infarct.
--- NOTE | 2017-06-14 12:33 | Diagnostic Imaging Report ---
Indication: chest pain Technique: The study was conducted under the supervision of a sr. merchandise planner. lexiscan (regadenoson) infusion over 10 seconds followed by intravenous administration of 29.2 mCi of technetium 99m Myoview was performed. Three plane SPECT imaging of the heart was then performed. A resting study was performed as part of the one-day protocol with 30.5 mCi of technetium 99m myoview injected intravenously at that time. Three plane SPECT imaging of the heart was obtained. Comparison: None Clinical data: 1. Clinical response: Non ischemic 2. Electrocardiographic response: Non ischemic Findings: The myocardial perfusion scan demonstrates relatively fixed, fairly large perfusion defect involving the lateral wall and inferolateral segment consistent with a myocardial infarct. LVEF estimated at 64%. There are no reversible segments to suggest ischemia. Impression: No evidence of myocardial ischemia. Lateral and inferolateral segment infarct.
--- NOTE | 2017-06-14 12:33 | Diagnostic Imaging Report ---
Indication: chest pain Technique: The study was conducted under the supervision of a residential support specialist. lexiscan (regadenoson) infusion over 10 seconds followed by intravenous administration of 29.2 mCi of technetium 99m Myoview was performed. Three plane SPECT imaging of the heart was then performed. A resting study was performed as part of the one-day protocol with 30.5 mCi of technetium 99m myoview injected intravenously at that time. Three plane SPECT imaging of the heart was obtained. Comparison: None Clinical data: 1. Clinical response: Non ischemic 2. Electrocardiographic response: Non ischemic Findings: The myocardial perfusion scan demonstrates relatively fixed, fairly large perfusion defect involving the lateral wall and inferolateral segment consistent with a myocardial infarct. LVEF estimated at 64%. There are no reversible segments to suggest ischemia. Impression: No evidence of myocardial ischemia. Lateral and inferolateral segment infarct.
[2017-06-14 16:00] VITALS: BP 126/75
[2017-06-14 17:04] VITALS: BP 126/75
--- NOTE | 2017-06-14 19:25 | Internal Med Progress Note ---
Subjective Date of Service: Jun 14, 2017 Physician Name Jose L Zhou Attending Physician Manjinder Edwards MD Allergies: Coded Allergies: No Known Allergies (Unverified , 06/09/17) ROS Limited/Unobtainable: No Constitutional: Reports: no symptoms HEENT: Reports: no symptoms Cardiovascular: Reports: no symptoms Respiratory: Reports: no symptoms Gastrointestinal/Abdominal: Reports: no symptoms Genitourinary: Reports: no symptoms Neurologic/Psychiatric: Reports: no symptoms Subjective 52 YO F admitted with chest pain. Now elevated troponin. Cover for Int Med-Dr Edwards. ECTOR. Await discharge home Objective Last Vital Signs Date Time Temp Pulse Resp B/P (MAP) Pulse Ox O2 Delivery O2 Flow Rate FiO2 06/14/17 17:04 126/75 06/14/17 16:00 87 06/14/17 16:00 97.7 19 89 Room Air 06/13/17 12:00 3.0 06/12/17 07:29 21 Laboratory Tests Test 06/14/17 03:15 06/14/17 08:10 06/14/17 15:45 White Blood Count 12.7 K/UL (4.8-10.8) H 12.7 K/UL (4.8-10.8) H Red Blood Count 2.91 M/UL (4.20-5.40) L 3.03 M/UL (4.20-5.40) L Hemoglobin 9.4 G/DL (12.0-16.0) L 9.4 G/DL (12.0-16.0) L Hematocrit 28.4 % (37.0-47.0) L 29.4 % (37.0-47.0) L Mean Corpuscular Volume 97 FL (80-99) 97 FL (80-99) Mean Corpuscular Hemoglobin 32.2 PG (27.0-31.0) H 30.9 PG (27.0-31.0) Mean Corpuscular Hemoglobin Concent 33.0 G/DL (32.0-36.0) 31.9 G/DL (32.0-36.0) L Red Cell Distribution Width 14.1 % (11.6-14.8) 13.6 % (11.6-14.8) Platelet Count 398 K/UL (150-450) 436 K/UL (150-450) Mean Platelet Volume 8.5 FL (6.5-10.1) 8.0 FL (6.5-10.1) Neutrophils (%) (Auto) 78.5 % (45.0-75.0) H 74.3 % (45.0-75.0) Lymphocytes (%) (Auto) 15.7 % (20.0-45.0) L 18.2 % (20.0-45.0) L Monocytes (%) (Auto) 4.7 % (1.0-10.0) 6.2 % (1.0-10.0) Eosinophils (%) (Auto) 0.5 % (0.0-3.0) 0.6 % (0.0-3.0) Basophils (%) (Auto) 0.6 % (0.0-2.0) 0.7 % (0.0-2.0) Sodium Level 141 MMOL/L (136-145) Potassium Level 4.7 MMOL/L (3.5-5.1) Chloride Level 108 MMOL/L (98-107) H Carbon Dioxide Level 22 MMOL/L (21-32) Anion Gap 11 mmol/L (5-15) Blood Urea Nitrogen 42 mg/dL (7-18) H Creatinine 1.7 MG/DL (0.55-1.30) H Estimat Glomerular Filtration Rate 37.9 mL/min (>60) Glucose Level 96 MG/DL (74-106) Calcium Level 9.1 MG/DL (8.5-10.1) Troponin I 5.880 ng/mL (0.000-0.056) Pro-B-Type Natriuretic Peptide 6565 pg/mL (0-125) H Activated Partial Thromboplast Time 27 SEC (23-33) 28 SEC (23-33) Intake and Output 06/14/17 06/15/17 19:00 07:00 Intake Total 1092.933 ml Balance 1092.933 ml Intake Oral 300 ml IV Total 792.933 ml # Voids 1 # Bowel Movements 1 Objective General Appearance: WD/WN, no apparent distress, alert EENT: PERRL/EOMI, normal ENT inspection Neck: non-tender, normal alignment, supple Cardiovascular: normal peripheral pulses, normal rate, regular rhythm, no gallop/murmur, no JVD Respiratory/Chest: chest wall non-tender, lungs clear, normal breath sounds, no respiratory distress, no accessory muscle use Abdomen: normal bowel sounds, non tender, soft, no organomegaly, no mass Extremities: normal range of motion Neurologic: quality control associate II-XII grossly normal, no motor/sensory deficits Skin: normal pigmentation Assessment/Plan Problem List: (1) Chest pain Assessment & Plan: Elevated troponin; await cardiology consult. (2) Diabetic neuropathy (3) Fibromyalgia (4) NSTEMI (non-ST elevated myocardial infarction) Assessment & Plan: Cardiolite stress test result=non ischemic.. See cardiology consult. (5) Hypertension Assessment & Plan: Cont atenolol (6) Diabetes mellitus Assessment & Plan: Cont novolog and levemir (7) Elevated troponin level Status: stable Assessment/Plan Discharge home today. JOSE L ZHOU Jun 14, 2017 19:25
--- NOTE | 2017-06-16 13:18 | Discharge Summary ---
Discharge Summary Hospital Course Date of Admission Jun 09, 2017 at 08:22 Date of Discharge Jun 14, 2017 at 18:49 Admitting Diagnosis nstemi HPI Cierra Nevarez is a 52 year old female who was admitted on Jun 09, 2017 at 08:[address] Elevation Myocardial Infarction Hospital Course [id number] Discharge Discharge Disposition Patient was discharged to Acute Care Facility(02) Discharge Diagnoses: Sadaf Soler NP Jun 16, 2017 13:18
--- NOTE | 2017-06-16 13:18 | Discharge Summary ---
Discharge Summary Hospital Course Date of Admission Jun 09, 2017 at 08:22 Date of Discharge Jun 14, 2017 at 18:49 Admitting Diagnosis nstemi HPI Cierra Nevarez is a 52 year old female who was admitted on Jun 09, 2017 at 08:[address] Elevation Myocardial Infarction Hospital Course [id number] Discharge Discharge Disposition Patient was discharged to Acute Care Facility(02) Discharge Diagnoses: Sadaf Soler NP Jun 16, 2017 13:18
--- NOTE | 2017-06-16 13:18 | Discharge Summary ---
Discharge Summary Hospital Course Date of Admission Jun 09, 2017 at 08:22 Date of Discharge Jun 14, 2017 at 18:49 Admitting Diagnosis nstemi HPI Cierra Nevarez is a 52 year old female who was admitted on Jun 09, 2017 at 08:[address] Elevation Myocardial Infarction Hospital Course [id number] Discharge Discharge Disposition Patient was discharged to Acute Care Facility(02) Discharge Diagnoses: Sadaf Soler NP Jun 16, 2017 13:18
--- NOTE | 2017-06-17 03:15 | Discharge Summary 2 SIG ---
DATE OF ADMISSION: 06/09/2017 DATE OF DISCHARGE: 06/14/2017 ATTENDING PHYSICIAN: Manjinder Edwards M.D. BRIEF HOSPITAL COURSE: The patient is a 52-year-old female with past medical history significant for diabetes type 2 with diabetic neuropathy and hypertension as well as fibromyalgia, presented to the hospital complaining of chest pain. Shortly after initial evaluation, the patient was noted to have elevated troponin and EKG with no ST elevation. She continued to have pain in the midsternal area and was described to be pressure like, 10/10 in intensity with no radiation, however, with associated shortness of breath. She was given nitroglycerin and aspirin with some relief and was admitted to the hospital for non-ST elevated [place]. Labs showed no leukocytosis. Urine toxicology was negative. BNP was greater than 6000 and glucose was greater than 600, but not in DKA. She was given IV fluids and insulin and was started on heparin drip. Troponins were monitored. She had an echocardiogram, which showed EF of 55% with RVSP of 18 and moderate mitral regurgitation. Follow up chest x-ray done showed resolution of congestive heart changes in bilateral infiltrates with some residual atelectasis at the base. Lasix was switched to daily. She was given blood pressure control consisting of beta-aleena and hydralazine. She was also seen by pain management. She was given aspirin, Lipitor, and atenolol. Heparin was discontinued. She underwent myocardial perfusion scan with results showed no evidence of myocardial infarction with lateral and inferolateral segment infarct. She developed chest pain again. Heparin drip was restarted. She was eventually transferred to [facility] for cardiac catheterization. FINAL DIAGNOSES: 1. Non-ST elevated myocardial infarction. 2. Diabetes mellitus. 3. Diabetic neuropathy. 4. Fibromyalgia. 5. Hypertension. 6. Acute on chronic renal failure. 7. Hypertensive urgency. 8. Moderate mitral regurgitation. 9. Hypokalemia. 10. Hypomagnesemia. DISPOSITION: The patient was discharged to [facility]. Hakeem Godinez M.D. I have been assigned to dictate discharge summary on this account and I was not involved in the patient's management. Sadaf Soler N.P. DR: TASHA JOB#: [id number] CC:
== END 2017-06-14 18:49 | disposition short-term general hospital (02) | DRG 190 ==
LOC: EDBD 07:20 → EMR 07:51 → 2W 08:22 → EDBEDREQSVC 09:02 → EDBEDREQ 09:02 → 2W 12:55 → 2E 06-14 06:36 → 2W 06-14 07:51
DX: I21.4 Non-ST elevation (NSTEMI) myocardial infarction (principal); I50.33 Acute on chronic diastolic (congestive) heart failure; N17.9 Acute kidney failure, unspecified; E11.22 Type 2 diabetes mellitus with diabetic chronic kidney disease; E11.42 Type 2 diabetes mellitus with diabetic polyneuropathy; E11.65 Type 2 diabetes mellitus with hyperglycemia; M79.7 Fibromyalgia; Z79.4 Long term (current) use of insulin; E78.5 Hyperlipidemia, unspecified; I12.9 Hypertensive chronic kidney disease with stage 1 through stage 4 chronic kidney disease, or unspecified chronic kidney disease; N18.9 Chronic kidney disease, unspecified; I16.0 Hypertensive urgency; I34.0 Nonrheumatic mitral (valve) insufficiency; E87.6 Hypokalemia; E83.42 Hypomagnesemia
CPT/HCPCS: 36415; 71010; 76775; 78452; 80048; 80053; 80061; 80307; 81003; 81025; 82009; 82550; 82553; 82962; 83036; 83735; 83880; 84100; 84443; 84484; 85025; 85610; 85730; 93005; 93017; 93306; 94760; J1815; J2785; J8499; S5561

== ENCOUNTER 2018-07-15 12:18 | Inpatient (IN) | payer OTHER ==
[~2018-07-15] VITALS: Ht 157.5 cm; Wt 82.6 kg
[~2018-07-15 12:18] MED LIST: GABAPENTIN800 MG ORAL; LANTUS SOL100 UNIT/1 SUBQ; PERCOCET 7.5-31 EACH ORAL
[2018-07-15] MEDS ORDERED: Albuterol/Ipratropium 3ml neb HHN ONE (12:30)
[2018-07-15 12:54] VITALS: BP 170/69
--- NOTE | 2018-07-15 13:23 | Diagnostic Imaging Report ---
EXAM: XR Chest, 1 View CLINICAL HISTORY: SOB TECHNIQUE: Frontal view of the chest. COMPARISON: No relevant prior studies available. FINDINGS: Lungs: Reduced lung volumes with bibasilar infiltrates. Pleural space: Unremarkable. No pneumothorax. Heart: Large cardiac silhouette. Mediastinum: Unremarkable. Bones/joints: No acute fracture. IMPRESSION: Reduced lung volumes with bibasilar infiltrates.
[2018-07-15] MEDS ORDERED: Ampicillin/Sulbactam Sod 3 GM in NS 110 ML IVPB ONE (14:00)
[2018-07-15 14:41] LABS: BASOPHILS % (AUTO) 0.4 % (0.0-2.0); EOSINOPHILS % (AUTO) 2.1 % (0.0-3.0); HEMATOCRIT 27.6 % (37.0-47.0); HEMOGLOBIN 8.8 G/DL (12.0-16.0); LYMPHOCYTES % (AUTO) 8.3 % (20.0-45.0); MEAN CORPUSCULAR VOLUME 99 FL (80-99); MONOCYTES % (AUTO) 4.6 % (1.0-10.0); NEUTROPHILS % (AUTO) 84.6 % (45.0-75.0); PLATELET COUNT 202 K/UL (150-450); RED CELL DISTRIBUTION WIDTH 13.4 % (11.6-14.8); WHITE BLOOD COUNT 7.8 K/UL (4.8-10.8)
[2018-07-15 14:51] LABS: INR 1.2 (0.9-1.1)
[2018-07-15 14:52] LABS: ANION GAP 8 mmol/L (5-15); BLOOD UREA NITROGEN 70 mg/dL (7-18); CALCIUM 9.2 MG/DL (8.5-10.1); CARBON DIOXIDE 27 MMOL/L (21-32); CHLORIDE 108 MMOL/L (98-107); CREATININE 3.3 MG/DL (0.55-1.30); POTASSIUM 4.1 MMOL/L (3.5-5.1); SODIUM 143 MMOL/L (136-145)
--- NOTE | 2018-07-15 14:57 | Emergency Room Report ---
History of Present Illness General Chief Complaint: Asthma Source: Patient Present Illness HPI Patient is a 53-year-old female presented after increased difficulty breathing. Patient prior history of asthma as well as congestive heart failure. Patient been noncompliant with her medications for heart failure. The patient noted have increased difficulty breathing by EMS. Patient was noted to have decreased oxygen saturation as well as nonproductive cough and chest tightness. 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 Allergies: Coded Allergies: No Known Allergies (Unverified , 06/09/17) Patient History Past Medical History: see triage record Reviewed Nursing Documentation: PMH: Agreed; PSxH: Agreed Nursing Documentation-PMH Past Medical History: No History, Except For Hx Hypertension: Yes Hx Diabetes: Yes Review of Systems All Other Systems: negative except mentioned in HPI Physical Exam Vital Signs Date Time Temp Pulse Resp B/P (MAP) Pulse Ox O2 Delivery O2 Flow Rate FiO2 07/15/18 12:07 98.8 78 20 184/82 91 Room Air 07/15/18 12:32 21 07/15/18 12:43 7.0 Sp02 EP Interpretation: reviewed, normal General Appearance: normal inspection, alert, GCS 15, Chronically Ill Head: atraumatic ENT: normal ENT inspection, hearing grossly normal, normal voice Neck: normal inspection, full range of motion, supple, no bony tend Respiratory: normal inspection, no retraction, wheezing Cardiovascular #1: regular rate, rhythm, edema Gastrointestinal: normal inspection, normal bowel sounds, non tender, soft, no guarding, no hernia Genitourinary: no CVA tenderness Musculoskeletal: normal inspection, back normal, normal range of motion Neurologic: normal inspection, alert, responsive, motor weakness - slurred speech Psychiatric: normal inspection, judgement/insight normal, mood/affect normal Skin: normal inspection, normal color, no rash Medical Decision Making Diagnostic Impression: Primary Impression: Asthma Additional Impressions: Diabetes mellitus CHF (congestive heart failure) Anemia ER Course Patient presented for shortness of breath. Differential included but was not limited to anemia, pneumonia, pneumothorax, myocardial infarction, pericardial effusion, congestive heart failure, acidosisBecause of complexity of patient's case laboratory testing and imaging studies were ordered.the EKG interpreted by me showed normal sinus rhythm with a rate of [address] or T wave changes. Laboratory was notable for evidence of anemia. Patient was given IV the antibiotics due to the chest x-ray with bilateral infiltrates. The patient was given IV Lasix subsequent. The Dr. Naun Geiger was contacted for inpatient management due to panel physician. Labs Test 07/15/18 14:10 White Blood Count 7.8 K/UL (4.8-10.8) Red Blood Count 2.80 M/UL (4.20-5.40) Hemoglobin 8.8 G/DL (12.0-16.0) Hematocrit 27.6 % (37.0-47.0) Mean Corpuscular Volume 99 FL (80-99) Mean Corpuscular Hemoglobin 31.2 PG (27.0-31.0) Mean Corpuscular Hemoglobin Concent 31.7 G/DL (32.0-36.0) Red Cell Distribution Width 13.4 % (11.6-14.8) Platelet Count 202 K/UL (150-450) Mean Platelet Volume 8.9 FL (6.5-10.1) Neutrophils (%) (Auto) 84.6 % (45.0-75.0) Lymphocytes (%) (Auto) 8.3 % (20.0-45.0) Monocytes (%) (Auto) 4.6 % (1.0-10.0) Eosinophils (%) (Auto) 2.1 % (0.0-3.0) Basophils (%) (Auto) 0.4 % (0.0-2.0) Sodium Level 143 MMOL/L (136-145) Potassium Level 4.1 MMOL/L (3.5-5.1) Chloride Level 108 MMOL/L (98-107) Carbon Dioxide Level 27 MMOL/L (21-32) Anion Gap 8 mmol/L (5-15) Blood Urea Nitrogen 70 mg/dL (7-18) Creatinine 3.3 MG/DL (0.55-1.30) Estimat Glomerular Filtration Rate 17.6 mL/min (>60) Glucose Level 172 MG/DL (74-106) Calcium Level 9.2 MG/DL (8.5-10.1) Last Vital Signs Date Time Temp Pulse Resp B/P (MAP) Pulse Ox O2 Delivery O2 Flow Rate FiO2 07/15/18 12:56 71 17 Simple Mask 7.0 07/15/18 12:54 170/69 100 07/15/18 12:43 45 12/8/18 12:07 98.8 Status: unchanged Disposition: ADMITTED INPATIENT Condition: Serious Referrals: NOT CHOSEN IPA/,REFERRING (PCP) Jordan Brizuela MD Jul 15, 2018 14:57
[2018-07-15 15:05] LABS: ALANINE AMINOTRANSFERASE 48 U/L (12-78); ALBUMIN 2.9 G/DL (3.4-5.0); ALBUMIN/GLOBULIN RATIO 0.6 (1.0-2.7); ALKALINE PHOSPHATASE 93 U/L (46-116); ASPARTATE AMINO TRANSFERASE 20 U/L (15-37); BILIRUBIN,TOTAL 0.3 MG/DL (0.2-1.0); CKMB 2.1 NG/ML (0.0-3.6); CREATINE KINASE 452 U/L (26-308); PHOSPHORUS 4.7 MG/DL (2.5-4.9)
[2018-07-15] MEDS ORDERED: Norco 5mg/325mg tab ORAL ONE (15:30)
[2018-07-15] MEDS ORDERED: Mylanta II UD 30ml ORAL PRN (15:30)
[2018-07-15] MEDS ORDERED: LORazepam Inj 2mg/ml 1ml IV PRN (15:30)
[2018-07-15] MEDS ORDERED: Morphine Sulfate 2mg/ml Inj IVP PRN ×2 (15:30→21:45)
[2018-07-15] MEDS ORDERED: Morphine Sulfate 2mg/ml Inj IVP ONE (15:45)
[2018-07-15 16:50] LABS: APPEARANCE,URINE SLIGHTLY CLOUDY; BILIRUBIN, URINE NEGATIVE (NEGATIVE); COLOR,URINE PALE YELLOW; GLUCOSE, URINE (UA) NEGATIVE (NEGATIVE); KETONES,URINE NEGATIVE (NEGATIVE); LEUKOCYTE ESTERASE ,URINE 1+ (NEGATIVE); NITRITE,URINE NEGATIVE (NEGATIVE); PH,URINE 8 (4.5-8.0); PROTEIN,URINE 4+ (NEGATIVE); UROBILINOGEN,URINE NORMAL MG/DL (0.0-1.0)
[2018-07-15] MEDS ORDERED: COREG12.5 MG ORAL (17:20)
[2018-07-15] MEDS ORDERED: PLAVIX75 MG ORAL (17:20)
[2018-07-15] MEDS ORDERED: HYDRALAZINE HC100 MG ORAL (17:20)
[2018-07-15] MEDS ORDERED: FUROSEMIDE40 MG ORAL (17:20)
[2018-07-15] MEDS ORDERED: HEPARIN SO5000 UNIT2 SUBQ (17:20)
[2018-07-15] MEDS ORDERED: COLACE100 MG ORAL (17:20)
[2018-07-15] MEDS ORDERED: HUMALOG100 UNIT/4 SUBQ ×2 (17:20→18:32)
[2018-07-15] MEDS ORDERED: PROCRIT2000 UNIT/ SUBQ (17:20)
[2018-07-15] MEDS ORDERED: ASPIRIN81 MG ORAL (17:20)
[2018-07-15] MEDS ORDERED: AMLODIPINE BESY10 MG ORAL (17:20)
[2018-07-15] MEDS ORDERED: NEURONTIN100 MG ORAL (17:20)
[2018-07-15] MEDS ORDERED: VITAMIN D22000 UNIT PO (17:20)
[2018-07-15] MEDS ORDERED: ATORVASTATIN CA80 MG ORAL (17:20)
[2018-07-15] MEDS ORDERED: CALCIUM ACETAT667 M1 PO (17:20)
[2018-07-15] MEDS ORDERED: MELATONIN10 M2 ORAL (17:21)
[2018-07-15] MEDS ORDERED: MIRTAZAPINE15 MG ORAL (17:21)
[2018-07-15] MEDS ORDERED: MIRALAX17 G2 ORAL ×2 (17:21→18:32)
[2018-07-15] MEDS ORDERED: ISOSORBIDE DINIT5 MG ORAL (17:21)
[2018-07-15 18:15] VITALS: BP 169/65
[2018-07-15] MEDS ORDERED: DULCOLAX10 MG RC (18:32)
[2018-07-15] MEDS ORDERED: ACETAMINOPHEN325 M1 ORAL (18:32)
[2018-07-15] MEDS ORDERED: OXYCODONE-ACET1 EAC5 ORAL (18:32)
[2018-07-15] MEDS ORDERED: OXYCODONE HCL5 MG ORAL (18:32)
[2018-07-15] MEDS ORDERED: DILAUDID 00.5 MG/0.1 IVP (18:32)
[2018-07-15] MEDS ORDERED: MULTIVITAMINS1 EA13 ORAL (18:32)
[2018-07-15] MEDS ORDERED: ATIVAN0.5 MG ORAL (18:32)
[2018-07-15] MEDS ORDERED: TRAZODONE HCL50 MG ORAL (18:32)
[2018-07-15] MEDS ORDERED: ISORDIL40 M1 PO (18:32)
[2018-07-15] MEDS ORDERED: VENOFER100 MG/5 M IVP (18:32)
[2018-07-15] MEDS ORDERED: FERROUS SULFAT325 MG ORAL (18:32)
[2018-07-15] MEDS ORDERED: ZOFRAN 4 MG4 MG/2 ML IVP (18:32)
[2018-07-15] MEDS ORDERED: NITROSTAT0.4 M1 SL (18:32)
[2018-07-15] MEDS ORDERED: MIRTAZAPINE7.5 MG ORAL (18:32)
[2018-07-15] MEDS ORDERED: GABAPENTIN300 MG ORAL (18:32)
[2018-07-15] MEDS ORDERED: MELATONIN3 MG ORAL (18:32)
[2018-07-15 19:57] VITALS: BP 177/65
[2018-07-15 20:20] VITALS: BP 185/80
[2018-07-15] MEDS ORDERED: Zolpidem 5mg tab ORAL PRN (21:00)
[2018-07-15] MEDS ORDERED: Miralax 17gm pkt ORAL PRN (21:00)
[2018-07-15] MEDS: NovoLOG Insulin Flexpen SUBQ SCH (22:21)
[2018-07-16] VITALS: BP 152/70
[2018-07-16 04:00] VITALS: BP 149/63
[2018-07-16] MEDS: NovoLOG Insulin Flexpen SUBQ SCH ×4 (06:32→21:08)
[2018-07-16 07:41] LABS: HEMATOCRIT 24.2 % (37.0-47.0); HEMOGLOBIN 7.9 G/DL (12.0-16.0); MEAN CORPUSCULAR VOLUME 99 FL (80-99); PLATELET COUNT 190 K/UL (150-450); RED BLOOD COUNT 2.45 M/UL (4.20-5.40); RED CELL DISTRIBUTION WIDTH 13.2 % (11.6-14.8); WHITE BLOOD COUNT 6.2 K/UL (4.8-10.8)
[2018-07-16 08:09] LABS: ALANINE AMINOTRANSFERASE 42 U/L (12-78); ALBUMIN 2.7 G/DL (3.4-5.0); ALBUMIN/GLOBULIN RATIO 0.6 (1.0-2.7); ALKALINE PHOSPHATASE 83 U/L (46-116); ANION GAP 10 mmol/L (5-15); ASPARTATE AMINO TRANSFERASE 22 U/L (15-37); BILIRUBIN,TOTAL 0.3 MG/DL (0.2-1.0); BLOOD UREA NITROGEN 61 mg/dL (7-18); CALCIUM 8.7 MG/DL (8.5-10.1); CARBON DIOXIDE 25 MMOL/L (21-32); CHLORIDE 107 MMOL/L (98-107); CHOLESTEROL 121 MG/DL (< 200); CREATININE 3.1 MG/DL (0.55-1.30); HDL CHOLESTEROL 43 MG/DL (40-60); POTASSIUM 3.6 MMOL/L (3.5-5.1); SODIUM 142 MMOL/L (136-145); TRIGLYCERIDES 105 MG/DL (30-150)
[2018-07-16 08:11] VITALS: BP 158/71
[2018-07-16] MEDS: Aspirin Baby 81mg ORAL SCH (08:35)
[2018-07-16] MEDS: Carvedilol 12.5mg tab ORAL SCH ×2 (08:36→21:04)
[2018-07-16 12:00] VITALS: BP 144/72
[2018-07-16] MEDS: HydrALAZINE 50mg tab ORAL SCH ×2 (13:11→23:21)
[2018-07-16 16:00] VITALS: BP 138/62
--- NOTE | 2018-07-16 16:45 | General Progress Note ---
Progress Note Progress Note [id number] full consult dictated Nabila Park MD Jul 16, 2018 16:45
--- NOTE | 2018-07-16 17:59 | History and Physical Report ---
DATE OF ADMISSION: 07/15/2018 DATE AND TIME SEEN: 07/16/2018 and 8 a.m. CONSULTANTS: 1. Hakeem Godinez M.D. 2. Kwesi Zee M.D. CHIEF COMPLAINT: Shortness of breath, asthma exacerbation, and CHF. BRIEF HISTORY: A 53-year-old female, who lives at home, presents with two days of increased shortness of breath, came to [place], diagnosed with asthma exacerbation and CHF exacerbation, and admitted to [facility] for further care. Currently slightly short of breath in bed, slightly weak. No complaint. REVIEW OF SYSTEMS: No chest pain. Slight short of breath. No nausea, vomiting, or diarrhea. PAST MEDICAL HISTORY: Includes hypertension, CHF, diabetes, and asthma. PAST SURGICAL HISTORY: None. MEDICATIONS: Include atorvastatin, hydralazine, amlodipine, aspirin, carvedilol, , mirtazapine, clonidine, and zolpidem. ALLERGIES: Lisinopril and losartan. SOCIAL HISTORY: No smoking. No alcohol. No intravenous drug abuse. FAMILY HISTORY: Noncontributory. PHYSICAL EXAMINATION: GENERAL: Calm in bed, oriented x3, slightly distress secondary to short of breath. VITAL SIGNS: Temperature is 97 degrees, pulse 69, respirations 20, and blood pressure 150/71. CARDIOVASCULAR: No murmur. LUNGS: Poor exchange. ABDOMEN: Bowel sounds distant. EXTREMITIES: No cyanosis, clubbing, or edema. NEUROLOGIC: The patient moves all extremities, slightly weak. LABORATORY DATA: Labs at this time show hemoglobin 7.9, otherwise CBC is normal. BMP shows BUN and creatinine 61 and 3.1, and glucose 143, otherwise normal. Troponin 0.048. Albumin 2.7. INR is 1.2 and PTT 33. Urinalysis shows 1+ leukocyte esterase. ASSESSMENT: 1. Shortness of breath. 2. Asthma exacerbation. 3. Congestive heart failure exacerbation. 4. Urinary tract infection. 5. Anemia. 6. Malnutrition. 7. Hypertension. 8. Diabetes. 9. Asthma. 10. Renal failure. PLAN: 1. Continue premed. 2. O2 and pulmonary treatment. 3. . 4. Blood pressure and blood sugar control. 5. OT, PT, and dietary evaluation. 6. CBC and BMP in the morning. 7. Nephrology, GI, heme, and ID followup. Naun Geiger D.O. DR: MURRAY JOB#: [id number] CC:
[2018-07-16 20:00] VITALS: BP 157/72
[2018-07-16] MEDS: Atorvastatin 80mg tab ORAL SCH (21:02)
[2018-07-17] VITALS: BP 148/70
--- NOTE | 2018-07-17 01:15 | Consultation ---
DATE OF CONSULTATION: 07/16/2018 NEPHROLOGY CONSULTATION: CONSULTING PHYSICIAN: Nabila Park M.D. REFERRING PHYSICIAN: Naun Geiger D.O. REASON FOR CONSULTATION: Acute versus chronic renal failure. HISTORY OF PRESENT ILLNESS: The patient is a 53-year-old, female with past medical history significant for history of hypertension, history of CVA, history of congestive heart failure, and history of diabetes who was originally admitted at [facility] for congestive heart failure and increasing shortness of breath. The patient was sent to rehabilitation for continued treatment where the patient found to have an increasing shortness of breath and decreased oxygen saturation. The patient also complained of chest tightness and lower extremity edema. Was brought in to ER. In ER at [place], the patient found to have a worsening of the kidney function. Also found to be in CHF. Was consequently admitted in the hospital. I was called for management of renal disease and electrolyte imbalance. PAST MEDICAL HISTORY: Includin. History of CVA with left-sided weakness. 2. History of hypertension. 3. History of diabetes. 4. History of congestive heart failure. 5. History of asthma. ALLERGIES: No known drug allergies. SOCIAL HISTORY: Currently was at a half-way. There is active history of tobacco, alcohol, or drug use. FAMILY HISTORY: Noncontributory. MEDICATIONS: Includin. Epogen 4000 units subcutaneous daily. 2. Atorvastatin 80 mg daily. 3. Hydralazine 100 mg daily. 4. Amlodipine 10 mg daily. 5. Aspirin 81 mg p.o. daily. 6. Carvedilol 37.5 mg daily. 7. Oxycodone 1 tablet p.r.n. pain. 8. Clonidine 0.1 p.r.n. blood pressure more than 160. 9. Ambien 5 mg p.o. daily. 10. Gabapentin 500 mg daily. 11. Tylenol 650 mg q.6 h. p.r.n. pain. 12. Zofran 4 mg p.r.n. nausea or vomiting. 13. Lorazepam 0.5 mg anxiety. 14. D50. REVIEW OF SYSTEMS: GENERAL: She complained of generalized weakness. Denies any fever, chills, or night sweats. HEAD AND NECK: Denies any dysphagia, odynophagia, blurry vision, headache, or neck stiffness. PULMONARY: Complained of mild shortness of breath and cough. No hemoptysis. CARDIOVASCULAR: Complained of chest tightness, orthopnea, PND, and leg swelling. GASTROINTESTINAL: Denies any nausea, vomiting, diarrhea, hematemesis, or hematochezia. GENITOURINARY: Denies any history of premature CAD. PHYSICAL EXAMINATION: VITAL SIGNS: The patient has temperature of 97, blood pressure of 158/71, and pulse rate of 69. HEAD AND NECK: No JVP. No LAD. No thyromegaly. Extraocular movements intact. Pupils are reactive to light and accommodation. LUNGS: Decreased breathing sounds on both sides. CARDIAC: Regular rate and rhythm. S1-S2. No murmur. No rub. ABDOMEN: Soft, nontender, and nondistended. EXTREMITIES: 1+ edema. No clubbing. No cyanosis. LABORATORY AND DIAGNOSTIC DATA: Sodium 142, potassium 3.6, chloride 107, bicarb 25, BUN 61, creatinine 3.1 down from 3.3, glucose of 142, and calcium of 8.7. The patient has a normal AST and ALT. Albumin of 2.7. Globulin of 4.3. Total cholesterol 121, LDL of 69, and HDL of 43. TSH within normal limits. CBC revealed WBC count of 6.2, hemoglobin of 7.9, hematocrit of 24, and platelet count of 190,000. UA revealed specific gravity of 1.010, pH of 4, 4+ proteinuria, leukocyte esterase positive, rbcs 2 to 4, wbcs 5 to 10. The patient had a chest x-ray, which revealed reduced lung volume with bibasilar infiltrate versus atelectasis. ASSESSMENT: 1. Acute versus chronic renal failure. The etiology of acute renal failure is cardiorenal syndrome, prerenal azotemia versus unstable hemodynamics. 2. Chronic kidney disease, most likely due to diabetic nephropathy since the patient has some degree of diabetic neuropathy. 3. History of congestive heart failure, but at this point the patient seems to be euvolemic. 4. Severe anemia or anemia of chronic kidney disease. 5. 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 6. Uncontrolled hypertension. PLAN: Plan for the patient to obtain UA. Check the random urine protein creatinine ratio to calculate the proteinuria. Check the urine sodium and creatinine to calculate fractional excretion of sodium. Ultrasound of the kidney. Check the microalbumin level controlling the blood pressure. Check the A1c. Recommended for this patient is 6 to 7. Daily weights. At the end, I would like to thank, Dr. Naun Geiger, for allowing me to participate in the care of this patient. Nabila Park M.D. DR: MARK JOB#: [id number] CC:
[2018-07-17 04:00] VITALS: BP 147/60
[2018-07-17] MEDS: HydrALAZINE 50mg tab ORAL SCH ×3 (06:15→23:14)
[2018-07-17] MEDS: NovoLOG Insulin Flexpen SUBQ SCH ×4 (06:24→21:14)
--- NOTE | 2018-07-17 06:50 | Consultation ---
Consult Note Consult Note Hematology Consultation DATE OF CONSULTATION: 07/17/2018 REFERRING PHYSICIAN: Naun Geiger D.O. REASON FOR CONSULTATION: Anemia eval HISTORY OF PRESENT ILLNESS: The patient is a 53-year-old, female with past medical history significant for history of hypertension, history of CVA, history of congestive heart failure, and history of diabetes who was originally admitted at [facility] for congestive heart failure and increasing shortness of breath. The patient was sent to rehabilitation for continued treatment where the patient found to have an increasing shortness of breath and decreased oxygen saturation. The patient also complained of chest tightness and lower extremity edema. Was brought in to ER. In ER at [place], the patient found to have a worsening of the kidney function. Also found to be in CHF. Was consequently admitted in the hospital. I was called for management of renal disease and electrolyte imbalance. Also noted to have anemia, poor a1c in the past and heme consulted. PAST MEDICAL HISTORY: 1. History of CVA with left-sided weakness. 2. History of hypertension. 3. History of diabetes. 4. History of congestive heart failure. 5. History of asthma. ALLERGIES: No known drug allergies. SOCIAL HISTORY: Currently was at a assisted. There is active history of tobacco, alcohol, or drug use. FAMILY HISTORY: Noncontributory. MEDICATIONS: Includin. Epogen 4000 units subcutaneous daily. 2. Atorvastatin 80 mg daily. 3. Hydralazine 100 mg daily. 4. Amlodipine 10 mg daily. 5. Aspirin 81 mg p.o. daily. 6. Carvedilol 37.5 mg daily. 7. Oxycodone 1 tablet p.r.n. pain. 8. Clonidine 0.1 p.r.n. blood pressure more than 160. 9. Ambien 5 mg p.o. daily. 10. Gabapentin 500 mg daily. 11. Tylenol 650 mg q.6 h. p.r.n. pain. 12. Zofran 4 mg p.r.n. nausea or vomiting. 13. Lorazepam 0.5 mg anxiety. 14. D50. REVIEW OF SYSTEMS: GENERAL: She complained of generalized weakness. Denies any fever, chills, or night sweats. HEAD AND NECK: Denies any dysphagia, odynophagia, blurry vision, headache, or neck stiffness. PULMONARY: Complained of mild shortness of breath and cough. No hemoptysis. CARDIOVASCULAR: Complained of chest tightness, orthopnea, PND, and leg swelling. GASTROINTESTINAL: Denies any nausea, vomiting, diarrhea, hematemesis, or hematochezia. GENITOURINARY: Denies any history of premature CAD. PHYSICAL EXAMINATION: Last 24 Hour Vital Signs Date Time Temp Pulse Resp B/P (MAP) Pulse Ox O2 Delivery O2 Flow Rate FiO2 07/17/18 06:15 141/71 07/17/18 04:00 97.3 60 20 147/60 (89) 98 07/17/18 04:00 59 07/17/18 00:00 62 07/17/18 00:00 98.8 64 20 148/70 (96) 98 07/16/18 23:21 148/70 07/16/18 21:04 65 157/72 07/16/18 21:00 Room Air 07/16/18 20:00 64 07/16/18 20:00 98.4 64 20 157/72 (100) 98 07/16/18 16:00 98.6 59 22 138/62 (87) 97 07/16/18 16:00 60 07/16/18 15:13 98.7 07/16/18 13:11 144/72 07/16/18 12:00 98.7 60 21 144/72 (96) 92 07/16/18 11:52 60 07/16/18 08:36 69 158/71 07/16/18 08:36 69 158/71 07/16/18 08:11 97.9 69 20 158/71 (100) 96 07/16/18 07:49 64 07/16/18 07:45 Room Air VITAL SIGNS: have been reviewed and are otherwise stable HEAD AND NECK: No JVP. No LAD. No thyromegaly. Extraocular movements intact. Pupils are reactive to light and accommodation. LUNGS: Decreased breathing sounds on both sides. CARDIAC: Regular rate and rhythm. S1-S2. No murmur. No rub. ABDOMEN: Soft, nontender, and nondistended. EXTREMITIES: 1+ edema. No clubbing. No cyanosis. Current Medications Medications (Trade) Dose Ordered Sig/Zara Route PRN Reason Start Time Stop Time Status Last Admin Dose Admin Acetaminophen (Tylenol) 650 mg Q4H PRN ORAL T>100.5 07/15/18 15:30 08/14/18 15:29 Al Hydroxide/Mg Hydroxide (Mylanta II) 30 ml Q6H PRN ORAL dyspepsia 07/15/18 15:30 08/14/18 15:29 Amlodipine Besylate (Norvasc) 10 mg DAILY ORAL 07/16/18 09:00 08/15/18 08:59 07/16/18 08:36 Aspirin (ASA) 81 mg DAILY ORAL 07/16/18 09:00 08/15/18 08:59 07/16/18 08:35 Atorvastatin Calcium (Lipitor) 80 mg BEDTIME ORAL 07/16/18 21:00 08/15/18 20:59 07/16/18 21:02 Carvedilol (Coreg) 37.5 mg EVERY 12 HOURS ORAL 07/16/18 09:00 08/15/18 08:59 07/16/18 21:04 Clonidine HCl (Catapres Tab) 0.1 mg Q6H PRN ORAL SBP > 160mmHg 07/15/18 21:30 08/14/18 21:29 07/15/18 21:44 Dextrose (Dextrose 50%) 25 ml Q30M PRN IV Hypoglycemia 07/15/18 15:30 08/14/18 15:26 Dextrose (Dextrose 50%) 50 ml Q30M PRN IV hypoglycemia 07/15/18 15:30 08/14/18 15:29 Epoetin Yordan (Procrit (for non ESRD use)) 4,000 units 2XW@2100 SUBQ 07/17/18 21:00 08/16/18 20:59 Gabapentin (Neurontin) 800 mg THREE TIMES A DAY ORAL 07/15/18 20:00 08/14/18 19:59 07/16/18 17:46 Hydralazine HCl (Apresoline) 100 mg Q8HR ORAL 07/16/18 14:00 08/15/18 13:59 07/17/18 06:15 Insulin Aspart (NovoLOG) BEFORE MEALS AND HS SUBQ 07/15/18 22:30 08/14/18 22:29 07/16/18 21:08 Levofloxacin 100 ml @ 100 mls/hr Q48H IVPB 07/17/18 17:00 07/24/18 16:59 Lorazepam (Ativan 2mg/ml 1ml) 0.5 mg Q4H PRN IV For Anxiety 07/15/18 15:30 07/22/18 15:29 Mirtazapine (Remeron) 7.5 mg BEDTIME ORAL 07/15/18 22:00 08/15/18 20:59 07/16/18 21:03 Morphine Sulfate (Morphine Sulfate) 1 mg Q4H PRN IVP Breakthrough pain 07/15/18 21:45 07/22/18 15:29 Ondansetron HCl (Zofran) 4 mg Q6H PRN IVP Nausea & Vomiting 07/15/18 15:30 08/14/18 15:29 Oxycodone HCl (Roxicodone) 5 mg Q4H PRN ORAL Moderate Pain (Pain Scale 4-6) 07/15/18 22:00 07/22/18 21:59 Oxycodone/ Acetaminophen (Percocet 10/325) 1 tab Q4H PRN ORAL Severe Pain (Pain Scale 7-10) 07/15/18 21:30 07/22/18 21:29 07/17/18 06:23 Polyethylene Glycol (Miralax) 17 gm HSPRN PRN ORAL Constipation 07/15/18 21:00 08/14/18 20:59 Zolpidem Tartrate (Ambien) 5 mg HSPRN PRN ORAL Insomnia 07/15/18 21:00 07/22/18 20:59 07/16/18 23:27 Labs: reviewed Imaging: reviewed ASSESSMENT/RECS: #. Anemia of chronic disease -- patient with ongoing kidney damage, cr is worse now --> anemia panel has been ordered and results are pending, incl tsh, ferritin, tibc, esr, b12, folate, fibrinogen, iron % --> nephrology has been consulted --> continue on epogen --> transfuse if hgb is <7 --> hemolysis w/u has been reviewed # Acute versus chronic renal failure. as per renal etiology of acute renal failure is cardiorenal syndrome, prerenal azotemia versus unstable --> bp to improve on current meds #. Coagulopathy with elevated inr --> recheck in several days, if persists consider ordering mixing Pt/Ptt study #. Chronic kidney disease, most likely due to diabetic nephropathy since the patient has some degree of diabetic neuropathy. --> as per nephro #. History of congestive heart failure, but at this point the patient seems to be euvolemic. --> per cardiology #. 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 #. Uncontrolled hypertension. --> now better Greatly appreciate consultation Amandeep Howell MD Jul 17, 2018 06:50
[2018-07-17 07:29] LABS: HEMATOCRIT 24.2 % (37.0-47.0); HEMOGLOBIN 7.7 G/DL (12.0-16.0); MEAN CORPUSCULAR VOLUME 100 FL (80-99); PLATELET COUNT 184 K/UL (150-450); RED BLOOD COUNT 2.43 M/UL (4.20-5.40); RED CELL DISTRIBUTION WIDTH 13.6 % (11.6-14.8); WHITE BLOOD COUNT 4.1 K/UL (4.8-10.8)
[2018-07-17 07:55] LABS: ANION GAP 10 mmol/L (5-15); BLOOD UREA NITROGEN 64 mg/dL (7-18); CALCIUM 8.3 MG/DL (8.5-10.1); CARBON DIOXIDE 25 MMOL/L (21-32); CHLORIDE 106 MMOL/L (98-107); CREATININE 3.4 MG/DL (0.55-1.30); SODIUM 141 MMOL/L (136-145)
[2018-07-17 08:00] VITALS: BP_SYST 119; BP_DIAS 60; BP_DIAS 68
[2018-07-17 08:16] LABS: FERRITIN 214 NG/ML (8-388)
[2018-07-17] MEDS: Aspirin Baby 81mg ORAL SCH (08:18)
[2018-07-17] MEDS: Carvedilol 12.5mg tab ORAL SCH ×2 (08:18→21:09)
[2018-07-17 08:28] LABS: % IRON SATURATION 25 % (15-50); IRON 54 ug/dL (50-175); TOTAL IRON BINDING CAPACITY 214 ug/dL (250-450)
[2018-07-17 09:19] LABS: INR 1.1 (0.9-1.1)
[2018-07-17] MEDS ORDERED: guaiFENesin 100mg/5ml Liq ud ORAL PRN (09:30)
[2018-07-17] MEDS: Albuterol/Ipratropium 3ml neb HHN PRN (09:50)
[2018-07-17] MEDS: oxyCODONE 5mg IR tab ORAL PRN ×3 (10:58→23:14)
--- NOTE | 2018-07-17 11:06 | GI Initial Consult Note ---
History of Present Illness General Date patient seen: Jul 17, 2018 Time patient seen: 11:04 Reason for Hospitalization: Asthma Referring physician: KILLIAN SZYMANSKI Reason for Consultation: ABDOMINAL PAIN Present Illness HPI Patient is a 53-year-old female presented after increased difficulty breathing. Patient prior history of asthma as well as congestive heart failure. Patient been noncompliant with her medications for heart failure. The patient noted have increased difficulty breathing by EMS. Patient was noted to have decreased oxygen saturation as well as nonproductive cough and chest tightness. 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 GI consulted for abdominal pain. Pt seen, awake A&Ox4 NAD c/o of epigastric pain that had occur recently. Denies any N/V/D or constipation. Labs reviewed note anemia and renal disease. No history of endoscopy / colonoscopy. Patient is Jehova's witness. Noted LLE edema. Home Meds Reported Medications Trazodone Hcl* (DESYREL*) 50 Mg Tablet, 50 MG ORAL BEDTIME 07/15/18 Bisacodyl (DULCOLAX) 10 Mg Supp.rect, 10 MG RC DAILY PRN for IF MOM INEFFECTIVE 07/15/18 Ferrous Sulfate* (FERROUS SULFATE*) 325 Mg Tablet, 325 MG ORAL TWICE A DAY 07/15/18 Multivitamin with Minerals (Multivitamins with Minerals) 1 Each Tablet, 1 TAB ORAL DAILY 07/15/18 Lorazepam* (ATIVAN*) 0.5 Mg Tablet, 0.5 MG ORAL DAILY PRN for For Anxiety 07/15/18 Acetaminophen* (ACETAMINOPHEN 325MG TABLET*) 325 Mg Tablet, 650 MG ORAL Q6H PRN for Mild Pain (Pain Scale 1-3) 07/15/18 Polyethylene Glycol 3350* (MIRALAX*) 17 Gm Powd.pack, 17 GM ORAL DAILY for HOLD FOR LBM 07/15/18 Oxycodone Hcl Ir* (ROXICODONE IR*) 5 Mg Tablet, 5 MG ORAL Q4H PRN for Moderate Pain (Pain Scale 4-6) 07/15/18 Ondansetron* (ZOFRAN*) 4 Mg/2 Ml Vial, 4 MG IVP Q8H PRN for Nausea & Vomiting 07/15/18 Nitroglycerin (NITROSTAT) 0.4 Mg Tab.subl, 0.4 MG SL Q5M X3 DOSES PRN for CHEST PAIN 07/15/18 Hydromorphone HCl/Pf (Dilaudid 0.5 mg/0.5 ml Syringe) 0.5 Mg/0.5 Ml Syringe, 0.2 MG IVP Q4HR PRN for Breakthrough Pain 07/15/18 Iron Sucrose (Venofer) 100 Mg/5 Ml Vial, 100 MG IVP DAILY 07/15/18 Insulin Lispro (HUMALOG) 100 Unit/1 Ml Cartridge, 6 UNITS SUBQ AC 07/15/18 Mirtazapine* (MIRTAZAPINE*) 7.5 Mg Tablet, 7.5 MG ORAL BEDTIME 07/15/18 Melatonin (MELATONIN) 3 Mg Tablet, 3 MG ORAL BEDTIME 07/15/18 Isosorbide Dinitrate (Isordil) 40 Mg Tablet, 40 MG PO TID 07/15/18 Oxycodone Hcl/Acetaminophen 10-325* (OXYCODONE-ACETAMINOPHEN 10-325*) 1 Each Tablet, 1 TAB ORAL Q4H PRN for Severe Pain (Pain Scale 7-10) 07/15/18 Gabapentin* (GABAPENTIN*) 300 Mg Capsule, 300 MG ORAL THREE TIMES A DAY 07/15/18 Insulin Lispro (HUMALOG) 100 Unit/1 Ml Cartridge, 0 SUBQ QID for BEFORE MEALS AND AT NIGHT 07/15/18 Hydralazine Hcl* (HYDRALAZINE HCL*) 100 Mg Tablet, 100 MG ORAL EVERY 8 HOURS, TAB 07/15/18 Heparin Sod (Porcine) (HEPARIN SODIUM*) 5 000/1 Ml Vial, 5000 UNITS SUBQ EVERY 12 HOURS, VIAL 07/15/18 Furosemide* (LASIX*) 40 Mg Tablet, 40 MG ORAL TWICE A DAY, TAB 0 Refills 07/15/18 Ergocalciferol (Vitamin D2) (VITAMIN D2) 2,000 Unit Tablet, 01133 UNIT PO WEEKLY 07/15/18 Epoetin Yordan (PROCRIT) 2,000 Unit/1 Ml Vial, 4000 UNIT SUBQ 3XW for GIVE ON MON AND TH07/15/18 Docusate Sodium* (COLACE*) 100 Mg Capsule, 100 MG ORAL TWICE A DAY, CAP 07/15/18 Clopidogrel Bisulfate* (PLAVIX*) 75 Mg Tablet, 75 MG ORAL DAILY, TAB 07/15/18 Carvedilol (Coreg) 12.5 Mg Tablet, 37.5 MG ORAL EVERY 12 HOURS, TAB 07/15/18 Calcium Acetate (CALCIUM ACETATE) 667 Mg Capsule, 667 MG PO TID for WITH MEALS 07/15/18 Atorvastatin Calcium* (LIPITOR*) 80 Mg Tablet, 80 MG ORAL BEDTIME, TAB 07/15/18 Aspirin* (ASPIRIN*) 81 Mg Tab.chew, 81 MG ORAL DAILY, TAB 07/15/18 Amlodipine Besylate* (AMLODIPINE BESYLATE*) 10 Mg Tablet, 10 MG ORAL DAILY, TAB 07/15/18 Insulin Glargine (LANTUS) 100 Unit/1 Ml Insuln.pen, 15 UNITS SUBQ BID 06/09/17 Discontinued Reported Medications Mirtazapine* (REMERON*) 15 Mg Tablet, 7.5 MG ORAL BEDTIME, TAB 07/15/18 Melatonin (MELATONIN) 10 Mg Capsule, 6 MG ORAL BEDTIME PRN for Insomnia, TAB 07/15/18 Isosorbide Dinitrate (ISOSORBIDE DINITRATE*) 5 Mg Tablet, 40 MG ORAL, #30 TAB 0 Refills 07/15/18 Gabapentin* (GABAPENTIN*) 800 Mg Tablet, 800 MG ORAL THREE TIMES A DAY, TAB 06/09/17 Med list reviewed/reconciled: Yes Allergies: Coded Allergies: LISINOPRIL (Verified Allergy, Unknown, 07/16/18) LOSARTAN (Verified Allergy, Unknown, 07/16/18) Patient History History Provided By: Patient, Medical Record PMH Narrative Past Medical History: see triage record Reviewed Nursing Documentation: PMH: Agreed; PSxH: Agreed Nursing Documentation-PMH Past Medical History: No History, Except For Hx Hypertension: Yes Hx Diabetes: Yes Review of Systems All Other Systems: negative except mentioned in HPI Physical Exam Vital Signs Date Time Temp Pulse Resp B/P (MAP) Pulse Ox O2 Delivery O2 Flow Rate FiO2 07/15/18 12:07 98.8 78 20 184/82 91 Room Air 07/15/18 12:32 21 07/15/18 12:43 7.0 Sp02 EP Interpretation: reviewed, normal Labs Laboratory Tests Test 07/17/18 06:15 07/17/18 07:50 White Blood Count 4.1 K/UL (4.8-10.8) L Red Blood Count 2.43 M/UL (4.20-5.40) L Hemoglobin 7.7 G/DL (12.0-16.0) L Hematocrit 24.2 % (37.0-47.0) L Mean Corpuscular Volume 100 FL (80-99) H Mean Corpuscular Hemoglobin 31.8 PG (27.0-31.0) H Mean Corpuscular Hemoglobin Concent 31.9 G/DL (32.0-36.0) L Red Cell Distribution Width 13.6 % (11.6-14.8) Platelet Count 184 K/UL (150-450) Mean Platelet Volume 8.1 FL (6.5-10.1) Neutrophils (%) (Auto) % (45.0-75.0) Lymphocytes (%) (Auto) % (20.0-45.0) Monocytes (%) (Auto) % (1.0-10.0) Eosinophils (%) (Auto) % (0.0-3.0) Basophils (%) (Auto) % (0.0-2.0) Differential Total Cells Counted 100 Neutrophils % (Manual) 54 % (45-75) Lymphocytes % (Manual) 35 % (20-45) Monocytes % (Manual) 6 % (1-10) Eosinophils % (Manual) 3 % (0-3) Basophils % (Manual) 2 % (0-2) Band Neutrophils 0 % (0-8) Platelet Estimate Adequate Platelet Morphology Normal Hypochromasia 3+ Anisocytosis 1+ Reticulocyte Count 4.7 % (0.0-2.0) H Sodium Level 141 MMOL/L (136-145) Potassium Level 4.0 MMOL/L (3.5-5.1) Chloride Level 106 MMOL/L (98-107) Carbon Dioxide Level 25 MMOL/L (21-32) Anion Gap 10 mmol/L (5-15) Blood Urea Nitrogen 64 mg/dL (7-18) H Creatinine 3.4 MG/DL (0.55-1.30) H Estimat Glomerular Filtration Rate 17.0 mL/min (>60) Glucose Level 92 MG/DL (74-106) Hemoglobin A1c 4.9 % (4.3-6.0) Calcium Level 8.3 MG/DL (8.5-10.1) L Iron Level 54 ug/dL (50-175) Total Iron Binding Capacity 214 ug/dL (250-450) L Percent Iron Saturation 25 % (15-50) Unsaturated Iron Binding 160 ug/dL (112-346) Ferritin 214 NG/ML (8-388) Vitamin B12 Level 793 PG/ML (193-986) Folate 9.4 NG/ML (8.6-58.9) Thyroid Stimulating Hormone (TSH) 1.977 uiU/mL (0.358-3.740) Sickle Cell Screen Pending Haptoglobin Pending Prothrombin Time 11.4 SEC (9.30-11.50) Prothromb Time International Ratio 1.1 (0.9-1.1) Fibrinogen 353 mg/dL (200-400) General Appearance: well appearing, no apparent distress, alert Head: normocephalic EENT: PERRL/EOMI, normal ENT inspection Neck: supple Respiratory: normal breath sounds, no respiratory distress Cardiovascular: normal rate Gastrointestinal: normal inspection, non tender, soft, normal bowel sounds, non -distended Rectal: deferred Genitourinary: no CVA tenderness Musculoskeletal: normal inspection, back normal Neurologic: normal inspection, alert, oriented x3, responsive Psychiatric: normal inspection, judgement/insight normal, memory normal Skin: normal inspection, normal color, no rash, warm/dry, palpation normal, well hydrated Lymphatic: normal inspection, no adenopathy Current Medications Current Medications Medications (Trade) Dose Ordered Sig/Zara Route PRN Reason Start Time Stop Time Status Last Admin Dose Admin Acetaminophen (Tylenol) 650 mg Q4H PRN ORAL T>100.5 07/15/18 15:30 08/14/18 15:29 Al Hydroxide/Mg Hydroxide (Mylanta II) 30 ml Q6H PRN ORAL dyspepsia 07/15/18 15:30 08/14/18 15:29 Albuterol/ Ipratropium (Albuterol/ Ipratropium) 3 ml Q4H PRN HHN Shortness of Breath 07/17/18 09:30 07/22/18 09:29 07/17/18 09:50 Amlodipine Besylate (Norvasc) 10 mg DAILY ORAL 07/16/18 09:00 08/15/18 08:59 07/17/18 08:18 Aspirin (ASA) 81 mg DAILY ORAL 07/16/18 09:00 08/15/18 08:59 07/17/18 08:18 Atorvastatin Calcium (Lipitor) 80 mg BEDTIME ORAL 07/16/18 21:00 08/15/18 20:59 07/16/18 21:02 Carvedilol (Coreg) 37.5 mg EVERY 12 HOURS ORAL 07/16/18 09:00 08/15/18 08:59 07/17/18 08:18 Clonidine HCl (Catapres Tab) 0.1 mg Q6H PRN ORAL SBP > 160mmHg 07/15/18 21:30 08/14/18 21:29 07/15/18 21:44 Dextrose (Dextrose 50%) 25 ml Q30M PRN IV Hypoglycemia 07/15/18 15:30 08/14/18 15:26 Dextrose (Dextrose 50%) 50 ml Q30M PRN IV hypoglycemia 07/15/18 15:30 08/14/18 15:29 Epoetin Yordan (Procrit (for non ESRD use)) 4,000 units 2XW@2100 SUBQ 07/17/18 21:00 08/16/18 20:59 Gabapentin (Neurontin) 800 mg THREE TIMES A DAY ORAL 07/15/18 20:00 08/14/18 19:59 07/17/18 08:17 Guaifenesin (Robitussin) 100 mg Q4H PRN ORAL For Cough 07/17/18 09:30 08/16/18 09:29 Hydralazine HCl (Apresoline) 100 mg Q8HR ORAL 07/16/18 14:00 08/15/18 13:59 07/17/18 06:15 Insulin Aspart (NovoLOG) BEFORE MEALS AND HS SUBQ 07/15/18 22:30 08/14/18 22:29 07/16/18 21:08 Iron Sucrose 100 mg/Sodium Chloride 60 ml @ 240 mls/hr BEDTIME IV 07/17/18 21:00 07/21/18 21:00 Levofloxacin 100 ml @ 100 mls/hr Q48H IVPB 07/17/18 17:00 07/24/18 16:59 Lorazepam (Ativan 2mg/ml 1ml) 0.5 mg Q4H PRN IV For Anxiety 07/15/18 15:30 07/22/18 15:29 Mirtazapine (Remeron) 7.5 mg BEDTIME ORAL 07/15/18 22:00 18/19 20:59 07/16/18 21:03 Morphine Sulfate (Morphine Sulfate) 2 mg Q4H PRN IVP Breakthrough Pain 07/17/18 09:38 07/24/18 09:37 Ondansetron HCl (Zofran) 4 mg Q6H PRN IVP Nausea & Vomiting 07/15/18 15:30 08/14/18 15:29 Oxycodone HCl (Roxicodone) 5 mg Q4H PRN ORAL Moderate Pain (Pain Scale 4-6) 07/15/18 22:00 07/22/18 21:59 07/17/18 10:58 Oxycodone/ Acetaminophen (Percocet 10/325) 1 tab Q4H PRN ORAL Severe Pain (Pain Scale 7-10) 07/15/18 21:30 07/22/18 21:29 07/17/18 06:23 Polyethylene Glycol (Miralax) 17 gm HSPRN PRN ORAL Constipation 07/15/18 21:00 08/14/18 20:59 Zolpidem Tartrate (Ambien) 5 mg HSPRN PRN ORAL Insomnia 07/15/18 21:00 07/22/18 20:59 07/16/18 23:27 GI: Plan Problems: (1) Anemia (2) Diabetes mellitus (3) Fibromyalgia (4) Diabetic neuropathy (5) Abdominal pain Plan fu pulmonary recs anemia work up, will consider GI procedures OB stool r/o GI bleed monitor H&H, prn transfusions bowel regime ppi fu labs Discussed with Dr. Yarbrough. Thank you for this patient referral, we will follow. The patient was seen and examined at bedside and all new and available data was reviewed in the patients chart. I agree with the above findings, impression and plan. (Patient seen earlier today. Signature stamp does not reflect patient encounter time.). - MD Sheila Carlos,[facility] ROOM CLERK Jul 17, 2018 11:06
--- NOTE | 2018-07-17 11:20 | Consultation ---
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 The patient noted have increased difficulty breathing by EMS. Patient was noted to have decreased oxygen saturation as well as nonproductive cough and chest tightness. she received Abx (one dose of Unasyn) , IV fluids and one dose of Laxis in ER and admitted to telemetry for further management. Allergies: Coded Allergies: LISINOPRIL (Verified Allergy, Unknown, 07/16/18) LOSARTAN (Verified Allergy, Unknown, 07/16/18) Medication History Scheduled Amlodipine Besylate* (Amlodipine Besylate*), 10 MG ORAL DAILY, (Reported) Aspirin* (Aspirin*), 81 MG ORAL DAILY, (Reported) Atorvastatin Calcium* (Lipitor*), 80 MG ORAL BEDTIME, (Reported) Calcium Acetate (Calcium Acetate), 667 MG PO TID, (Reported) Carvedilol (Coreg), 37.5 MG ORAL EVERY 12 HOURS, (Reported) Clopidogrel Bisulfate* (Plavix*), 75 MG ORAL DAILY, (Reported) Docusate Sodium* (Colace*), 100 MG ORAL TWICE A DAY, (Reported) Epoetin Yordan (Procrit), 4,000 UNIT SUBQ 3XW, (Reported) Ergocalciferol (Vitamin D2) (Vitamin D2), 50,000 UNIT PO WEEKLY, (Reported) Ferrous Sulfate* (Ferrous Sulfate*), 325 MG ORAL TWICE A DAY, (Reported) Furosemide* (Lasix*), 40 MG ORAL TWICE A DAY, (Reported) Gabapentin* (Gabapentin*), 300 MG ORAL THREE TIMES A DAY, (Reported) Heparin Sod (Porcine) (Heparin Sodium*), 5,000 UNITS SUBQ EVERY 12 HOURS, ( Reported) Hydralazine Hcl* (Hydralazine Hcl*), 100 MG ORAL EVERY 8 HOURS, (Reported) Insulin Glargine (Lantus), 15 UNITS SUBQ BID, (Reported) Insulin Lispro (Humalog), 0 SUBQ QID, (Reported) Insulin Lispro (Humalog), 6 UNITS SUBQ AC, (Reported) Iron Sucrose (Venofer), 100 MG IVP DAILY, (Reported) Isosorbide Dinitrate (Isordil), 40 MG PO TID, (Reported) Melatonin (Melatonin), 3 MG ORAL BEDTIME, (Reported) Mirtazapine* (Mirtazapine*), 7.5 MG ORAL BEDTIME, (Reported) Multivitamin with Minerals (Multivitamins with Minerals), 1 TAB ORAL DAILY, ( Reported) Polyethylene Glycol 3350* (Miralax*), 17 GM ORAL DAILY, (Reported) Trazodone Hcl* (Desyrel*), 50 MG ORAL BEDTIME, (Reported) Scheduled PRN Acetaminophen* (Acetaminophen 325MG Tablet*), 650 MG ORAL Q6H PRN for Mild Pain (Pain Scale 1-3), (Reported) Bisacodyl (Dulcolax), 10 MG RC DAILY PRN for IF MOM INEFFECTIVE, (Reported) Hydromorphone HCl/Pf (Dilaudid 0.5 mg/0.5 ml Syringe), 0.2 MG IVP Q4HR PRN for Breakthrough Pain, (Reported) Lorazepam* (Ativan*), 0.5 MG ORAL DAILY PRN for For Anxiety, (Reported) Nitroglycerin (Nitrostat), 0.4 MG SL Q5M X3 DOSES PRN for CHEST PAIN, (Reported) Ondansetron* (Zofran*), 4 MG IVP Q8H PRN for Nausea & Vomiting, (Reported) Oxycodone Hcl Ir* (Roxicodone Ir*), 5 MG ORAL Q4H PRN for Moderate Pain (Pain Scale 4-6), (Reported) Oxycodone Hcl/Acetaminophen 10-325* (Oxycodone-Acetaminophen 10-325*), 1 TAB ORAL Q4H PRN for Severe Pain (Pain Scale 7-10), (Reported) Discontinued Medications Gabapentin* (Gabapentin*), 800 MG ORAL THREE TIMES A DAY, (Reported) Discontinued Reason: Prescription changed Isosorbide Dinitrate (Isosorbide Dinitrate*), 40 MG ORAL, (Reported) Discontinued Reason: Prescription changed Melatonin (Melatonin), 6 MG ORAL BEDTIME PRN for Insomnia, (Reported) Discontinued Reason: Prescription changed Mirtazapine* (Remeron*), 7.5 MG ORAL BEDTIME, (Reported) Discontinued Reason: Prescription changed Patient History Healthcare decision maker Resuscitation status Full Code Advanced Directive on File Past Medical/Surgical History Past Medical/Surgical History: (1) Diabetes mellitus (2) Diabetic neuropathy (3) Hypertension (4) Anemia Review of Systems All Other Systems: negative except mentioned in HPI Physical Exam General Appearance: WD/WN Lines, tubes and drains: peripheral HEENT: normocephalic, atraumatic Neck: non-tender, normal alignment Respiratory/Chest: chest wall non-tender, lungs clear Breasts: no masses Cardiovascular/Chest: normal peripheral pulses Abdomen: normal bowel sounds, non tender Genitourinary/Rectal: normal genital exam Extremities: normal range of motion Skin Exam: normal pigmentation Neurologic: adhesion tester II-XII grossly normal Last 24 Hour Vital Signs Date Time Temp Pulse Resp B/P (MAP) Pulse Ox O2 Delivery O2 Flow Rate FiO2 07/17/18 09:49 21 07/17/18 09:49 82 20 100 Room Air 21 07/17/18 08:18 66 119/68 07/17/18 08:18 66 119/68 07/17/18 08:00 64 07/17/18 08:00 60 20 119/68 (85) 99 66 07/17/18 06:15 141/71 07/17/18 04:00 97.3 60 20 147/60 (89) 98 07/17/18 04:00 59 07/17/18 00:00 62 07/17/18 00:00 98.8 64 20 148/70 (96) 98 07/16/18 23:21 148/70 07/16/18 21:04 65 157/72 07/16/18 21:00 Room Air 07/16/18 20:00 64 07/16/18 20:00 98.4 64 20 157/72 (100) 98 07/16/18 16:00 98.6 59 22 138/62 (87) 97 07/16/18 16:00 60 07/16/18 15:13 98.7 07/16/18 13:11 144/72 07/16/18 12:00 98.7 60 21 144/72 (96) 92 07/16/18 11:52 60 Intake and Output 07/16/18 07/17/18 19:00 07:00 Intake Total 620 ml Balance 620 ml Intake Oral 620 ml # Voids 2 2 Laboratory Tests Test 07/17/18 06:15 07/17/18 07:50 White Blood Count 4.1 K/UL (4.8-10.8) L Red Blood Count 2.43 M/UL (4.20-5.40) L Hemoglobin 7.7 G/DL (12.0-16.0) L Hematocrit 24.2 % (37.0-47.0) L Mean Corpuscular Volume 100 FL (80-99) H Mean Corpuscular Hemoglobin 31.8 PG (27.0-31.0) H Mean Corpuscular Hemoglobin Concent 31.9 G/DL (32.0-36.0) L Red Cell Distribution Width 13.6 % (11.6-14.8) Platelet Count 184 K/UL (150-450) Mean Platelet Volume 8.1 FL (6.5-10.1) Neutrophils (%) (Auto) % (45.0-75.0) Lymphocytes (%) (Auto) % (20.0-45.0) Monocytes (%) (Auto) % (1.0-10.0) Eosinophils (%) (Auto) % (0.0-3.0) Basophils (%) (Auto) % (0.0-2.0) Differential Total Cells Counted 100 Neutrophils % (Manual) 54 % (45-75) Lymphocytes % (Manual) 35 % (20-45) Monocytes % (Manual) 6 % (1-10) Eosinophils % (Manual) 3 % (0-3) Basophils % (Manual) 2 % (0-2) Band Neutrophils 0 % (0-8) Platelet Estimate Adequate Platelet Morphology Normal Hypochromasia 3+ Anisocytosis 1+ Reticulocyte Count 4.7 % (0.0-2.0) H Sodium Level 141 MMOL/L (136-145) Potassium Level 4.0 MMOL/L (3.5-5.1) Chloride Level 106 MMOL/L (98-107) Carbon Dioxide Level 25 MMOL/L (21-32) Anion Gap 10 mmol/L (5-15) Blood Urea Nitrogen 64 mg/dL (7-18) H Creatinine 3.4 MG/DL (0.55-1.30) H Estimat Glomerular Filtration Rate 17.0 mL/min (>60) Glucose Level 92 MG/DL (74-106) Hemoglobin A1c 4.9 % (4.3-6.0) Calcium Level 8.3 MG/DL (8.5-10.1) L Iron Level 54 ug/dL (50-175) Total Iron Binding Capacity 214 ug/dL (250-450) L Percent Iron Saturation 25 % (15-50) Unsaturated Iron Binding 160 ug/dL (112-346) Ferritin 214 NG/ML (8-388) Vitamin B12 Level 793 PG/ML (193-986) Folate 9.4 NG/ML (8.6-58.9) Thyroid Stimulating Hormone (TSH) 1.977 uiU/mL (0.358-3.740) Sickle Cell Screen Pending Haptoglobin Pending Prothrombin Time 11.4 SEC (9.30-11.50) Prothromb Time International Ratio 1.1 (0.9-1.1) Fibrinogen 353 mg/dL (200-400) Height (Feet): 5 Height (Inches): 2.00 Weight (Pounds): 164 Medications Current Medications Medications (Trade) Dose Ordered Sig/Zara Route PRN Reason Start Time Stop Time Status Last Admin Dose Admin Acetaminophen (Tylenol) 650 mg Q4H PRN ORAL T>100.5 07/15/18 15:30 08/14/18 15:29 Al Hydroxide/Mg Hydroxide (Mylanta II) 30 ml Q6H PRN ORAL dyspepsia 07/15/18 15:30 08/14/18 15:29 Albuterol/ Ipratropium (Albuterol/ Ipratropium) 3 ml Q4H PRN HHN Shortness of Breath 07/17/18 09:30 07/22/18 09:29 07/17/18 09:50 Amlodipine Besylate (Norvasc) 10 mg DAILY ORAL 07/16/18 09:00 08/15/18 08:59 07/17/18 08:18 Aspirin (ASA) 81 mg DAILY ORAL 07/16/18 09:00 08/15/18 08:59 07/17/18 08:18 Atorvastatin Calcium (Lipitor) 80 mg BEDTIME ORAL 07/16/18 21:00 08/15/18 20:59 07/16/18 21:02 Carvedilol (Coreg) 37.5 mg EVERY 12 HOURS ORAL 07/16/18 09:00 1/8/19 08:59 07/17/18 08:18 Clonidine HCl (Catapres Tab) 0.1 mg Q6H PRN ORAL SBP > 160mmHg 07/15/18 21:30 08/14/18 21:29 07/15/18 21:44 Dextrose (Dextrose 50%) 25 ml Q30M PRN IV Hypoglycemia 07/15/18 15:30 08/14/18 15:26 Dextrose (Dextrose 50%) 50 ml Q30M PRN IV hypoglycemia 07/15/18 15:30 08/14/18 15:29 Epoetin Yordan (Procrit (for non ESRD use)) 4,000 units 2XW@2100 SUBQ 07/17/18 21:00 08/16/18 20:59 Gabapentin (Neurontin) 800 mg THREE TIMES A DAY ORAL 07/15/18 20:00 08/14/18 19:59 07/17/18 08:17 Guaifenesin (Robitussin) 100 mg Q4H PRN ORAL For Cough 07/17/18 09:30 08/16/18 09:29 Hydralazine HCl (Apresoline) 100 mg Q8HR ORAL 07/16/18 14:00 08/15/18 13:59 07/17/18 06:15 Insulin Aspart (NovoLOG) BEFORE MEALS AND HS SUBQ 07/15/18 22:30 08/14/18 22:29 07/16/18 21:08 Iron Sucrose 100 mg/Sodium Chloride 60 ml @ 240 mls/hr BEDTIME IV 07/17/18 21:00 07/21/18 21:00 Levofloxacin 100 ml @ 100 mls/hr Q48H IVPB 07/17/18 17:00 07/24/18 16:59 Lorazepam (Ativan 2mg/ml 1ml) 0.5 mg Q4H PRN IV For Anxiety 07/15/18 15:30 07/22/18 15:29 Mirtazapine (Remeron) 7.5 mg BEDTIME ORAL 07/15/18 22:00 08/15/18 20:59 07/16/18 21:03 Morphine Sulfate (Morphine Sulfate) 2 mg Q4H PRN IVP Breakthrough Pain 07/17/18 09:38 07/24/18 09:37 Ondansetron HCl (Zofran) 4 mg Q6H PRN IVP Nausea & Vomiting 07/15/18 15:30 08/14/18 15:29 Oxycodone HCl (Roxicodone) 5 mg Q4H PRN ORAL Moderate Pain (Pain Scale 4-6) 07/15/18 22:00 07/22/18 21:59 Oxycodone/ Acetaminophen (Percocet 10/325) 1 tab Q4H PRN ORAL Severe Pain (Pain Scale 7-10) 07/15/18 21:30 07/22/18 21:29 07/17/18 06:23 Polyethylene Glycol (Miralax) 17 gm HSPRN PRN ORAL Constipation 07/15/18 21:00 08/14/18 20:59 Zolpidem Tartrate (Ambien) 5 mg HSPRN PRN ORAL Insomnia 07/15/18 21:00 07/22/18 20:59 07/16/18 23:27 Assessment/Plan Problem List: (1) Acute respiratory failure ICD Codes: J96.00 - Acute respiratory failure, unspecified whether with hypoxia or hypercapnia SNOMED: 37998173 (2) ATN (acute tubular necrosis) ICD Codes: N17.0 - Acute kidney failure with tubular necrosis SNOMED: 42926349 (3) Cardiomegaly ICD Codes: I51.7 - Cardiomegaly SNOMED: 4387179 (4) Diabetes mellitus ICD Codes: E11.9 - Type 2 diabetes mellitus without complications SNOMED: 48105352 (5) Diabetic neuropathy ICD Codes: E11.40 - Type 2 diabetes mellitus with diabetic neuropathy, unspecified SNOMED: 47225555, 351694878, 293781641 (6) Hypertension ICD Codes: I10 - Essential (primary) hypertension SNOMED: 01951099 (7) Anemia ICD Codes: D64.9 - Anemia, unspecified SNOMED: 424256763 Assessment/Plan would get V/q scan to rule out PE, since CXR is not impressive and pt did have severe dyspnea. Dyspnea could have been caused by High BP. Her SBP was 180 on presentation. Echocardiogram to asses EF, renal studies underway, it seems that pt has chronic renal disease and might need HD soon. anemia w/u, most likely secondary to chronic renal disease. symptomatic treatment respiratory treatment Hakeem Godinez MD Jul 17, 2018 11:20
[2018-07-17 12:00] VITALS: BP 139/65
--- NOTE | 2018-07-17 12:03 | Consultation ---
History of Present Illness General Date patient seen: Jul 17, 2018 Chief Complaint: Asthma Referring physician: KILLIAN SZYMANSKI Reason for Consultation: ABDOMINAL PAIN Present Illness HPI 53 y/o F with hx of CHF, asthma, HTN, DM, CVA w/ L side weakness, [facility] resident presents to ED on 07/16 with worsening SOB, hypoxia, non productive cough, lower ext edema and chest tightness . Patient originally admitted to [facility] for CHF exacerbation and from there sent to Rehab where she continue to have increasing SOB and decreased O2 saturation. Upon admission, patient was found to have MICHELLE. Allergies: Coded Allergies: LISINOPRIL (Verified Allergy, Unknown, 07/16/18) LOSARTAN (Verified Allergy, Unknown, 07/16/18) Medication History Scheduled Amlodipine Besylate* (Amlodipine Besylate*), 10 MG ORAL DAILY, (Reported) Aspirin* (Aspirin*), 81 MG ORAL DAILY, (Reported) Atorvastatin Calcium* (Lipitor*), 80 MG ORAL BEDTIME, (Reported) Calcium Acetate (Calcium Acetate), 667 MG PO TID, (Reported) Carvedilol (Coreg), 37.5 MG ORAL EVERY 12 HOURS, (Reported) Clopidogrel Bisulfate* (Plavix*), 75 MG ORAL DAILY, (Reported) Docusate Sodium* (Colace*), 100 MG ORAL TWICE A DAY, (Reported) Epoetin Yordan (Procrit), 4,000 UNIT SUBQ 3XW, (Reported) Ergocalciferol (Vitamin D2) (Vitamin D2), 50,000 UNIT PO WEEKLY, (Reported) Ferrous Sulfate* (Ferrous Sulfate*), 325 MG ORAL TWICE A DAY, (Reported) Furosemide* (Lasix*), 40 MG ORAL TWICE A DAY, (Reported) Gabapentin* (Gabapentin*), 300 MG ORAL THREE TIMES A DAY, (Reported) Heparin Sod (Porcine) (Heparin Sodium*), 5,000 UNITS SUBQ EVERY 12 HOURS, ( Reported) Hydralazine Hcl* (Hydralazine Hcl*), 100 MG ORAL EVERY 8 HOURS, (Reported) Insulin Glargine (Lantus), 15 UNITS SUBQ BID, (Reported) Insulin Lispro (Humalog), 0 SUBQ QID, (Reported) Insulin Lispro (Humalog), 6 UNITS SUBQ AC, (Reported) Iron Sucrose (Venofer), 100 MG IVP DAILY, (Reported) Isosorbide Dinitrate (Isordil), 40 MG PO TID, (Reported) Melatonin (Melatonin), 3 MG ORAL BEDTIME, (Reported) Mirtazapine* (Mirtazapine*), 7.5 MG ORAL BEDTIME, (Reported) Multivitamin with Minerals (Multivitamins with Minerals), 1 TAB ORAL DAILY, ( Reported) Polyethylene Glycol 3350* (Miralax*), 17 GM ORAL DAILY, (Reported) Trazodone Hcl* (Desyrel*), 50 MG ORAL BEDTIME, (Reported) Scheduled PRN Acetaminophen* (Acetaminophen 325MG Tablet*), 650 MG ORAL Q6H PRN for Mild Pain (Pain Scale 1-3), (Reported) Bisacodyl (Dulcolax), 10 MG RC DAILY PRN for IF MOM INEFFECTIVE, (Reported) Hydromorphone HCl/Pf (Dilaudid 0.5 mg/0.5 ml Syringe), 0.2 MG IVP Q4HR PRN for Breakthrough Pain, (Reported) Lorazepam* (Ativan*), 0.5 MG ORAL DAILY PRN for For Anxiety, (Reported) Nitroglycerin (Nitrostat), 0.4 MG SL Q5M X3 DOSES PRN for CHEST PAIN, (Reported) Ondansetron* (Zofran*), 4 MG IVP Q8H PRN for Nausea & Vomiting, (Reported) Oxycodone Hcl Ir* (Roxicodone Ir*), 5 MG ORAL Q4H PRN for Moderate Pain (Pain Scale 4-6), (Reported) Oxycodone Hcl/Acetaminophen 10-325* (Oxycodone-Acetaminophen 10-325*), 1 TAB ORAL Q4H PRN for Severe Pain (Pain Scale 7-10), (Reported) Discontinued Medications Gabapentin* (Gabapentin*), 800 MG ORAL THREE TIMES A DAY, (Reported) Discontinued Reason: Prescription changed Isosorbide Dinitrate (Isosorbide Dinitrate*), 40 MG ORAL, (Reported) Discontinued Reason: Prescription changed Melatonin (Melatonin), 6 MG ORAL BEDTIME PRN for Insomnia, (Reported) Discontinued Reason: Prescription changed Mirtazapine* (Remeron*), 7.5 MG ORAL BEDTIME, (Reported) Discontinued Reason: Prescription changed Patient History Healthcare decision maker Resuscitation status Full Code Advanced Directive on File Patient History Narrative Pmhx: as above Shx: [facility]. There is active history of tobacco, alcohol, or drug use. Fhx: non contributory Review of Systems All Other Systems: negative except mentioned in HPI Physical Exam Physical Exam Narrative GENERAL: Calm in bed, oriented x3, slightly distress secondary to short of breath. CARDIOVASCULAR: No murmur. LUNGS: Poor exchange. ABDOMEN: Bowel sounds distant. EXTREMITIES: No cyanosis, clubbing, or edema. NEUROLOGIC: The patient moves all extremities, slightly weak. Last 24 Hour Vital Signs Date Time Temp Pulse Resp B/P (MAP) Pulse Ox O2 Delivery O2 Flow Rate FiO2 07/17/18 09:49 21 07/17/18 09:49 82 20 100 Room Air 21 07/17/18 09:00 Room Air 07/17/18 08:18 66 119/68 07/17/18 08:18 66 119/68 07/17/18 08:00 64 07/17/18 08:00 60 20 119/68 (85) 99 66 07/17/18 06:15 141/71 07/17/18 04:00 97.3 60 20 147/60 (89) 98 07/17/18 04:00 59 07/17/18 00:00 62 07/17/18 00:00 98.8 64 20 148/70 (96) 98 07/16/18 23:21 148/70 07/16/18 21:04 65 157/72 07/16/18 21:00 Room Air 07/16/18 20:00 64 07/16/18 20:00 98.4 64 20 157/72 (100) 98 07/16/18 16:00 98.6 59 22 138/62 (87) 97 07/16/18 16:00 60 07/16/18 15:13 98.7 07/16/18 13:11 144/72 07/16/18 12:00 98.7 60 21 144/72 (96) 92 07/16/18 11:52 60 Intake and Output 07/16/18 07/17/18 19:00 07:00 Intake Total 620 ml Balance 620 ml Intake Oral 620 ml # Voids 2 2 Laboratory Tests Test 07/17/18 06:15 07/17/18 07:50 White Blood Count 4.1 K/UL (4.8-10.8) L Red Blood Count 2.43 M/UL (4.20-5.40) L Hemoglobin 7.7 G/DL (12.0-16.0) L Hematocrit 24.2 % (37.0-47.0) L Mean Corpuscular Volume 100 FL (80-99) H Mean Corpuscular Hemoglobin 31.8 PG (27.0-31.0) H Mean Corpuscular Hemoglobin Concent 31.9 G/DL (32.0-36.0) L Red Cell Distribution Width 13.6 % (11.6-14.8) Platelet Count 184 K/UL (150-450) Mean Platelet Volume 8.1 FL (6.5-10.1) Neutrophils (%) (Auto) % (45.0-75.0) Lymphocytes (%) (Auto) % (20.0-45.0) Monocytes (%) (Auto) % (1.0-10.0) Eosinophils (%) (Auto) % (0.0-3.0) Basophils (%) (Auto) % (0.0-2.0) Differential Total Cells Counted 100 Neutrophils % (Manual) 54 % (45-75) Lymphocytes % (Manual) 35 % (20-45) Monocytes % (Manual) 6 % (1-10) Eosinophils % (Manual) 3 % (0-3) Basophils % (Manual) 2 % (0-2) Band Neutrophils 0 % (0-8) Platelet Estimate Adequate Platelet Morphology Normal Hypochromasia 3+ Anisocytosis 1+ Reticulocyte Count 4.7 % (0.0-2.0) H Sodium Level 141 MMOL/L (136-145) Potassium Level 4.0 MMOL/L (3.5-5.1) Chloride Level 106 MMOL/L (98-107) Carbon Dioxide Level 25 MMOL/L (21-32) Anion Gap 10 mmol/L (5-15) Blood Urea Nitrogen 64 mg/dL (7-18) H Creatinine 3.4 MG/DL (0.55-1.30) H Estimat Glomerular Filtration Rate 17.0 mL/min (>60) Glucose Level 92 MG/DL (74-106) Hemoglobin A1c 4.9 % (4.3-6.0) Calcium Level 8.3 MG/DL (8.5-10.1) L Iron Level 54 ug/dL (50-175) Total Iron Binding Capacity 214 ug/dL (250-450) L Percent Iron Saturation 25 % (15-50) Unsaturated Iron Binding 160 ug/dL (112-346) Ferritin 214 NG/ML (8-388) Vitamin B12 Level 793 PG/ML (193-986) Folate 9.4 NG/ML (8.6-58.9) Thyroid Stimulating Hormone (TSH) 1.977 uiU/mL (0.358-3.740) Sickle Cell Screen Pending Haptoglobin Pending Prothrombin Time 11.4 SEC (9.30-11.50) Prothromb Time International Ratio 1.1 (0.9-1.1) Fibrinogen 353 mg/dL (200-400) Height (Feet): 5 Height (Inches): 2.00 Weight (Pounds): 164 Medications Current Medications Medications (Trade) Dose Ordered Sig/Zara Route PRN Reason Start Time Stop Time Status Last Admin Dose Admin Acetaminophen (Tylenol) 650 mg Q4H PRN ORAL T>100.5 07/15/18 15:30 08/14/18 15:29 Al Hydroxide/Mg Hydroxide (Mylanta II) 30 ml Q6H PRN ORAL dyspepsia 07/15/18 15:30 08/14/18 15:29 Albuterol/ Ipratropium (Albuterol/ Ipratropium) 3 ml Q4H PRN HHN Shortness of Breath 07/17/18 09:30 07/22/18 09:29 07/17/18 09:50 Amlodipine Besylate (Norvasc) 10 mg DAILY ORAL 07/16/18 09:00 08/15/18 08:59 07/17/18 08:18 Aspirin (ASA) 81 mg DAILY ORAL 07/16/18 09:00 08/15/18 08:59 07/17/18 08:18 Atorvastatin Calcium (Lipitor) 80 mg BEDTIME ORAL 07/16/18 21:00 08/15/18 20:59 07/16/18 21:02 Carvedilol (Coreg) 37.5 mg EVERY 12 HOURS ORAL 07/16/18 09:00 08/15/18 08:59 07/17/18 08:18 Clonidine HCl (Catapres Tab) 0.1 mg Q6H PRN ORAL SBP > 160mmHg 07/15/18 21:30 08/14/18 21:29 07/15/18 21:44 Dextrose (Dextrose 50%) 25 ml Q30M PRN IV Hypoglycemia 07/15/18 15:30 08/14/18 15:26 Dextrose (Dextrose 50%) 50 ml Q30M PRN IV hypoglycemia 07/15/18 15:30 08/14/18 15:29 Epoetin Yordan (Procrit (for non ESRD use)) 4,000 units 2XW@2100 SUBQ 07/17/18 21:00 08/16/18 20:59 Gabapentin (Neurontin) 800 mg THREE TIMES A DAY ORAL 07/15/18 20:00 08/14/18 19:59 07/17/18 08:17 Guaifenesin (Robitussin) 100 mg Q4H PRN ORAL For Cough 07/17/18 09:30 08/16/18 09:29 Hydralazine HCl (Apresoline) 100 mg Q8HR ORAL 07/16/18 14:00 08/15/18 13:59 07/17/18 06:15 Insulin Aspart (NovoLOG) BEFORE MEALS AND HS SUBQ 07/15/18 22:30 08/14/18 22:29 07/16/18 21:08 Iron Sucrose 100 mg/Sodium Chloride 60 ml @ 240 mls/hr BEDTIME IV 07/17/18 21:00 07/21/18 21:00 Levofloxacin 100 ml @ 100 mls/hr Q48H IVPB 07/17/18 17:00 07/24/18 16:59 Lorazepam (Ativan 2mg/ml 1ml) 0.5 mg Q4H PRN IV For Anxiety 07/15/18 15:30 07/22/18 15:29 Mirtazapine (Remeron) 7.5 mg BEDTIME ORAL 07/15/18 22:00 08/15/18 20:59 07/16/18 21:03 Morphine Sulfate (Morphine Sulfate) 2 mg Q4H PRN IVP Breakthrough Pain 07/17/18 09:38 07/24/18 09:37 Ondansetron HCl (Zofran) 4 mg Q6H PRN IVP Nausea & Vomiting 07/15/18 15:30 08/14/18 15:29 Oxycodone HCl (Roxicodone) 5 mg Q4H PRN ORAL Moderate Pain (Pain Scale 4-6) 07/15/18 22:00 07/22/18 21:59 07/17/18 10:58 Oxycodone/ Acetaminophen (Percocet 10/325) 1 tab Q4H PRN ORAL Severe Pain (Pain Scale 7-10) 07/15/18 21:30 07/22/18 21:29 07/17/18 06:23 Polyethylene Glycol (Miralax) 17 gm HSPRN PRN ORAL Constipation 07/15/18 21:00 08/14/18 20:59 Zolpidem Tartrate (Ambien) 5 mg HSPRN PRN ORAL Insomnia 07/15/18 21:00 07/22/18 20:59 07/16/18 23:27 Assessment/Plan Assessment/Plan Abx: Unasyn x1 07/15 Levaquin 07/16- Assessment: Probable PNA -CXR: Reduced lung volumes with bibasilar infiltrates. -influenza sc neg Afebrile No leukocytosis Pyuria, mild -u/a wbc 5-10,nit neg leuk +1,. many sq cells; ucx p Acute CHF exacerbation MICHELLE asthma HTN DM CVA w/ L side weakness NH resident Plan: -Continue Levaquin #2/5 for probable PNA -f/u cx -Monitor CBC/C MP, temperatures -Aspiration precautions -Cards, Renal f/u Thank you for this consultation. Will continue to follow along with you. Discussed with Juliane Frances M.D. Jul 17, 2018 12:03
[2018-07-17] MEDS: Morphine Sulfate 2mg/ml Inj IVP PRN ×4 (12:31→21:11)
--- NOTE | 2018-07-17 13:58 | Diagnostic Imaging Report ---
Indication:Elevated Bun and Creatinine. Technique: Grayscale and duplex Doppler imaging of the kidneys performed. Comparison: None Findings: The right kidney appears normal measuring 12.9 cm. Some echogenic structures may be cysts tiny nonobstructive stones. Bilateral pleural effusions are present. The left kidney is not seen. The urinary bladder is unremarkable. Multiple calcified uterine fibroids are noted. IMPRESSION: Nonidentification of the left kidney. Bilateral pleural effusions Uterine fibroids
[2018-07-17 14:28] LABS: BILIRUBIN, URINE NEGATIVE (NEGATIVE); COLOR,URINE PALE YELLOW; GLUCOSE, URINE (UA) NEGATIVE (NEGATIVE); KETONES,URINE NEGATIVE (NEGATIVE); LEUKOCYTE ESTERASE ,URINE 1+ (NEGATIVE); NITRITE,URINE NEGATIVE (NEGATIVE); PH,URINE 7 (4.5-8.0); PROTEIN,URINE 4+ (NEGATIVE); UROBILINOGEN,URINE NORMAL MG/DL (0.0-1.0)
[2018-07-17 14:30] LABS: APPEARANCE,URINE CLEAR
--- NOTE | 2018-07-17 14:36 | General Progress Note ---
Assessment/Plan Problem List: (1) SOB (shortness of breath) ICD Codes: R06.02 - Shortness of breath SNOMED: 017046601 (2) CHF (congestive heart failure) ICD Codes: I50.9 - Heart failure, unspecified SNOMED: 17078551 (3) Renal failure ICD Codes: N19 - Unspecified kidney failure SNOMED: 69317331 (4) Asthma ICD Codes: J45.909 - Unspecified asthma, uncomplicated SNOMED: 580285087 (5) Hypertension ICD Codes: I10 - Essential (primary) hypertension SNOMED: 33200291 (6) Diabetic neuropathy ICD Codes: E11.40 - Type 2 diabetes mellitus with diabetic neuropathy, unspecified SNOMED: 09502177, 040269317, 058417716 (7) Diabetes mellitus ICD Codes: E11.9 - Type 2 diabetes mellitus without complications SNOMED: 74577199 (8) Anemia ICD Codes: D64.9 - Anemia, unspecified SNOMED: 295117263 Status: unchanged Assessment/Plan o2 pulm tx diurese bp bs control cbc bmp am Subjective Constitutional: Reports: weakness Respiratory: Reports: shortness of breath Allergies: Coded Allergies: LISINOPRIL (Verified Allergy, Unknown, 07/16/18) LOSARTAN (Verified Allergy, Unknown, 07/16/18) All Systems: reviewed and negative except above Subjective sitting calm Objective Last 24 Hour Vital Signs Date Time Temp Pulse Resp B/P (MAP) Pulse Ox O2 Delivery O2 Flow Rate FiO2 07/17/18 13:07 139/65 07/17/18 12:00 97.9 64 18 139/65 (89) 95 07/17/18 12:00 64 07/17/18 09:49 21 07/17/18 09:49 82 20 100 Room Air 21 07/17/18 09:00 Room Air 07/17/18 08:18 66 119/68 07/17/18 08:18 66 119/68 07/17/18 08:00 64 07/17/18 08:00 60 20 119/68 (85) 99 66 07/17/18 06:15 141/71 07/17/18 04:00 97.3 60 20 147/60 (89) 98 07/17/18 04:00 59 07/17/18 00:00 62 07/17/18 00:00 98.8 64 20 148/70 (96) 98 07/16/18 23:21 148/70 07/16/18 21:04 65 157/72 07/16/18 21:00 Room Air 07/16/18 20:00 64 07/16/18 20:00 98.4 64 20 157/72 (100) 98 07/16/18 16:00 98.6 59 22 138/62 (87) 97 07/16/18 16:00 60 07/16/18 15:13 98.7 Intake and Output 07/16/18 07/17/18 19:00 07:00 Intake Total 620 ml Balance 620 ml Intake Oral 620 ml # Voids 2 2 Laboratory Tests 07/17/18 06:15: White Blood Count 4.1L, Red Blood Count 2.43L, Hemoglobin 7.7L, Hematocrit 24.2L , Mean Corpuscular Volume 100H, Mean Corpuscular Hemoglobin 31.8H, Mean Corpuscular Hemoglobin Concent 31.9L, Red Cell Distribution Width 13.6, Platelet Count 184, Mean Platelet Volume 8.1, Neutrophils (%) (Auto) , Lymphocytes (%) (Auto) , Monocytes (%) (Auto) , Eosinophils (%) (Auto) , Basophils (%) (Auto) , Differential Total Cells Counted 100, Neutrophils % ( Manual) 54, Lymphocytes % (Manual) 35, Monocytes % (Manual) 6, Eosinophils % ( Manual) 3, Basophils % (Manual) 2, Band Neutrophils 0, Platelet Estimate Adequate, Platelet Morphology Normal, Hypochromasia 3+, Anisocytosis 1+, Reticulocyte Count 4.7H, Sodium Level 141, Potassium Level 4.0, Chloride Level 106, Carbon Dioxide Level 25, Anion Gap 10, Blood Urea Nitrogen 64H, Creatinine 3.4H, Estimat Glomerular Filtration Rate 17.0, Glucose Level 92, Hemoglobin A1c 4.9, Calcium Level 8.3L, Iron Level 54, Total Iron Binding Capacity 214L, Percent Iron Saturation 25, Unsaturated Iron Binding 160, Ferritin 214, Vitamin B12 Level 793, Folate 9.4, Thyroid Stimulating Hormone (TSH) 1.977 07/17/18 07:50: Sickle Cell Screen [Pending], Haptoglobin [Pending], Prothrombin Time 11.4, Prothromb Time International Ratio 1.1, Fibrinogen 353 07/17/18 14:03: Urine Color Pale yellow, Urine Appearance Clear, Urine pH 7, Urine Specific [place] 1.010, Urine Protein 4+H, Urine Glucose (UA) Negative, Urine Ketones Negative, Urine Blood Negative, Urine Nitrite Negative, Urine Bilirubin Negative , Urine Urobilinogen Normal, Urine Leukocyte Esterase 1+H, Urine RBC [Pending], Urine WBC [Pending], Urine Squamous Epithelial Cells [Pending], Urine Bacteria [ Pending], Urine Eosinophils [Pending], Urine Random Creatinine [Pending], Urine Random Microalbumin [Pending], Urine Random Total Protein [Pending], Urine Random Sodium 54, Urine Creatinine 66.6, Urine Microalbumin/Creatinine Ratio [ Pending] Height (Feet): 5 Height (Inches): 2.00 Weight (Pounds): 164 General Appearance: lethargic EENT: normal ENT inspection Neck: normal alignment Cardiovascular: normal peripheral pulses, normal rate, regular rhythm Respiratory/Chest: chest wall non-tender, decreased breath sounds Abdomen: normal bowel sounds, non tender, soft Extremities: normal inspection Edema: no edema noted Arm (L), no edema noted Arm (R), no edema noted Leg (L), no edema noted Leg (R), no edema noted Pedal (L), no edema noted Pedal (R), no edema noted Generalized Neurologic: responsive, motor weakness Skin: normal pigmentation, warm/dry Naun Geiger DO Jul 17, 2018 14:36
--- NOTE | 2018-07-17 15:21 | Diagnostic Imaging Report ---
Indication: Dyspnea TECHNIQUE: 5 mCi of technetium 99m MAA was injected intravenously. Images of the lungs performed in multiple projections. Patient refused the ventilation portion of the examination. FINDINGS: Perfusion appears relatively normal. Mild in homogeneity noted at the lung bases. IMPRESSION: Essentially negative perfusion scan. Although no ventilation scan was performed, with still consider this low probability for pulmonary embolus.
[2018-07-17 16:00] VITALS: BP 116/50
--- NOTE | 2018-07-17 16:33 | Nephrology Progress Note ---
Assessment/Plan Assessment 1. Acute versus chronic renal failure. The etiology of acute renal failure is cardiorenal syndrome, prerenal azotemia versus unstable hemodynamics. 2. Chronic kidney disease, most likely due to diabetic nephropathy since the patient has some degree of diabetic neuropathy. 3. History of congestive heart failure, but at this point the patient seems to be euvolemic. 4. Severe anemia or anemia of chronic kidney disease. 5. 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 6. Uncontrolled hypertension. Plan continue lasix monitoring renal function avoid NSAID replace electrolyte replace electrolyte as need it Subjective Constitutional: Reports: no symptoms HEENT: Reports: no symptoms Genitourinary: Reports: no symptoms Neurologic/Psychiatric: Reports: no symptoms Objective Objective Last 24 Hour Vital Signs Date Time Temp Pulse Resp B/P (MAP) Pulse Ox O2 Delivery O2 Flow Rate FiO2 07/17/18 13:07 139/65 07/17/18 12:00 97.9 64 18 139/65 (89) 95 07/17/18 12:00 64 07/17/18 09:49 21 07/17/18 09:49 82 20 100 Room Air 21 07/17/18 09:00 Room Air 07/17/18 08:18 66 119/68 07/17/18 08:18 66 119/68 07/17/18 08:00 64 07/17/18 08:00 60 20 119/68 (85) 99 66 07/17/18 06:15 141/71 07/17/18 04:00 97.3 60 20 147/60 (89) 98 07/17/18 04:00 59 07/17/18 00:00 62 07/17/18 00:00 98.8 64 20 148/70 (96) 98 07/16/18 23:21 148/70 07/16/18 21:04 65 157/72 07/16/18 21:00 Room Air 07/16/18 20:00 64 07/16/18 20:00 98.4 64 20 157/72 (100) 98 Intake and Output 07/16/18 07/17/18 18:59 06:59 Intake Total 620 ml Balance 620 ml Intake Oral 620 ml # Voids 2 2 Laboratory Tests 07/17/18 06:15: White Blood Count 4.1L, Red Blood Count 2.43L, Hemoglobin 7.7L, Hematocrit 24.2L , Mean Corpuscular Volume 100H, Mean Corpuscular Hemoglobin 31.8H, Mean Corpuscular Hemoglobin Concent 31.9L, Red Cell Distribution Width 13.6, Platelet Count 184, Mean Platelet Volume 8.1, Neutrophils (%) (Auto) , Lymphocytes (%) (Auto) , Monocytes (%) (Auto) , Eosinophils (%) (Auto) , Basophils (%) (Auto) , Differential Total Cells Counted 100, Neutrophils % ( Manual) 54, Lymphocytes % (Manual) 35, Monocytes % (Manual) 6, Eosinophils % ( Manual) 3, Basophils % (Manual) 2, Band Neutrophils 0, Platelet Estimate Adequate, Platelet Morphology Normal, Hypochromasia 3+, Anisocytosis 1+, Reticulocyte Count 4.7H, Sodium Level 141, Potassium Level 4.0, Chloride Level 106, Carbon Dioxide Level 25, Anion Gap 10, Blood Urea Nitrogen 64H, Creatinine 3.4H, Estimat Glomerular Filtration Rate 17.0, Glucose Level 92, Hemoglobin A1c 4.9, Calcium Level 8.3L, Iron Level 54, Total Iron Binding Capacity 214L, Percent Iron Saturation 25, Unsaturated Iron Binding 160, Ferritin 214, Vitamin B12 Level 793, Folate 9.4, Thyroid Stimulating Hormone (TSH) 1.977 07/17/18 07:50: Sickle Cell Screen [Pending], Haptoglobin [Pending], Prothrombin Time 11.4, Prothromb Time International Ratio 1.1, Fibrinogen 353 07/17/18 14:03: Urine Color Pale yellow, Urine Appearance Clear, Urine pH 7, Urine Specific [place] 1.010, Urine Protein 4+H, Urine Glucose (UA) Negative, Urine Ketones Negative, Urine Blood Negative, Urine Nitrite Negative, Urine Bilirubin Negative , Urine Urobilinogen Normal, Urine Leukocyte Esterase 1+H, Urine RBC 2-4H, Urine WBC 2-4, Urine Squamous Epithelial Cells ModerateH, Urine Bacteria Few, Urine Eosinophils None seen, Urine Random Creatinine [Pending], Urine Random Microalbumin [Pending], Urine Random Total Protein 270H, Urine Random Sodium 54 , Urine Creatinine 66.6, Urine Microalbumin/Creatinine Ratio [Pending] Height (Feet): 5 Height (Inches): 2.00 Weight (Pounds): 164 Objective HEAD AND NECK: No JVP. No LAD. No thyromegaly. Extraocular movements intact. Pupils are reactive to light and accommodation. LUNGS: Decreased breathing sounds on both sides. CARDIAC: Regular rate and rhythm. S1-S2. No murmur. No rub. ABDOMEN: Soft, nontender, and nondistended. EXTREMITIES: 1+ edema. No clubbing. No cyanosis. Nabila Park MD Jul 17, 2018 16:33
[2018-07-17 20:00] VITALS: BP 163/66
[2018-07-17] MEDS: Atorvastatin 80mg tab ORAL SCH (21:09)
[2018-07-17] MEDS: Iron Sucrose 100 MG in NS 55 ML IV SCH (21:10)
[2018-07-17] MEDS: Epogen (for non ESRD use) SUBQ SCH (21:10)
[2018-07-18] VITALS: BP 147/60
[2018-07-18] MEDS: Morphine Sulfate 2mg/ml Inj IVP PRN ×5 (03:48→21:47)
[2018-07-18 04:00] VITALS: BP 113/70
[2018-07-18] MEDS: NovoLOG Insulin Flexpen SUBQ SCH ×4 (06:30→21:51)
[2018-07-18] MEDS: HydrALAZINE 50mg tab ORAL SCH ×3 (06:31→21:44)
[2018-07-18 07:11] LABS: BASOPHILS % (AUTO) 0.7 % (0.0-2.0); EOSINOPHILS % (AUTO) 3.7 % (0.0-3.0); HEMATOCRIT 26.1 % (37.0-47.0); HEMOGLOBIN 8.5 G/DL (12.0-16.0); LYMPHOCYTES % (AUTO) 20.6 % (20.0-45.0); MEAN CORPUSCULAR VOLUME 99 FL (80-99); MONOCYTES % (AUTO) 8.2 % (1.0-10.0); NEUTROPHILS % (AUTO) 66.9 % (45.0-75.0); PLATELET COUNT 196 K/UL (150-450); RED BLOOD COUNT 2.63 M/UL (4.20-5.40); RED CELL DISTRIBUTION WIDTH 13.2 % (11.6-14.8); WHITE BLOOD COUNT 5.6 K/UL (4.8-10.8)
[2018-07-18 07:13] LABS: ALANINE AMINOTRANSFERASE 50 U/L (12-78); ALBUMIN 2.9 G/DL (3.4-5.0); ALBUMIN/GLOBULIN RATIO 0.7 (1.0-2.7); ALKALINE PHOSPHATASE 107 U/L (46-116); ANION GAP 9 mmol/L (5-15); ASPARTATE AMINO TRANSFERASE 22 U/L (15-37); BILIRUBIN,TOTAL 0.3 MG/DL (0.2-1.0); BLOOD UREA NITROGEN 66 mg/dL (7-18); CALCIUM 8.5 MG/DL (8.5-10.1); CARBON DIOXIDE 26 MMOL/L (21-32); CHLORIDE 107 MMOL/L (98-107); CREATININE 3.5 MG/DL (0.55-1.30); POTASSIUM 4.4 MMOL/L (3.5-5.1); SODIUM 142 MMOL/L (136-145)
[2018-07-18 08:00] VITALS: BP 162/79
[2018-07-18] MEDS: Aspirin Baby 81mg ORAL SCH (08:53)
[2018-07-18] MEDS: Carvedilol 12.5mg tab ORAL SCH ×2 (09:03→21:45)
[2018-07-18] MEDS: Albuterol/Ipratropium 3ml neb HHN PRN (09:28)
--- NOTE | 2018-07-18 09:44 | Infectious Diseases Prog Note ---
Assessment/Plan Assessment/Plan Abx: Unasyn x1 07/15 Levaquin 07/16- Assessment: Probable PNA -CXR: Reduced lung volumes with bibasilar infiltrates. -influenza sc neg Afebrile No leukocytosis Pyuria, mild -u/a wbc 5-10,nit neg leuk +1,. many sq cells; ucx p Acute CHF exacerbation MICHELLE asthma HTN DM CVA w/ L side weakness [facility] resident Plan: -Continue Levaquin #3/5 for probable PNA -f/u cx -Monitor CBC/C MP, temperatures -Aspiration precautions -Cards, Renal f/u Thank you for this consultation. Will continue to follow along with you. Discussed with RN. Subjective Allergies: Coded Allergies: LISINOPRIL (Verified Allergy, Unknown, 07/16/18) LOSARTAN (Verified Allergy, Unknown, 07/16/18) Subjective afebrile at 2lNC neg VQ scan Objective Vital Signs Last 24 Hour Vital Signs Date Time Temp Pulse Resp B/P (MAP) Pulse Ox O2 Delivery O2 Flow Rate FiO2 07/18/18 09:38 70 20 98 Nasal Cannula 2.0 28 07/18/18 09:33 95 Nasal Cannula 2.0 28 07/18/18 09:33 Nasal Cannula 2.0 28 07/18/18 09:30 75 20 Nasal Cannula 2.0 28 07/18/18 09:29 70 20 95 Room Air 21 07/18/18 09:04 74 162/79 07/18/18 09:03 74 162/79 07/18/18 04:00 64 07/18/18 04:00 98.5 64 20 113/70 (84) 93 07/18/18 00:00 98.5 66 20 147/60 (89) 95 07/18/18 00:00 65 07/17/18 23:14 147/60 07/17/18 21:09 67 163/66 07/17/18 21:00 Room Air 07/17/18 20:00 62 07/17/18 20:00 98.2 67 20 163/66 (98) 95 07/17/18 17:21 97.8 07/17/18 16:00 62 07/17/18 16:00 97.8 65 21 116/50 (72) 94 07/17/18 13:07 139/65 12/10/18 12:00 97.9 64 18 139/65 (89) 95 07/17/18 12:00 64 07/17/18 09:49 21 07/17/18 09:49 82 20 100 Room Air 21 Height (Feet): 5 Height (Inches): 2.00 Weight (Pounds): 164 Objective GENERAL: Calm in bed, oriented x3, slightly distress secondary to short of breath. CARDIOVASCULAR: No murmur. LUNGS: Poor exchange. ABDOMEN: Bowel sounds distant. EXTREMITIES: No cyanosis, clubbing, or edema. NEUROLOGIC: The patient moves all extremities, slightly weak. Microbiology Date/Time Source Procedure Growth Status 07/15/18 14:20 Blood Blood Culture - Preliminary NO GROWTH AFTER 48 HOURS Resulted 07/15/18 14:10 Blood Blood Culture - Preliminary NO GROWTH AFTER 48 HOURS Resulted 07/15/18 15:00 Nasal Nares Influenza Types A,B Antigen (JOSSY) - Final Complete Laboratory Tests Test 07/17/18 14:03 07/18/18 05:45 Urine Color Pale yellow Urine Appearance Clear Urine pH 7 (4.5-8.0) Urine Specific [place] 1.010 (1.005-1.035) Urine Protein 4+ (NEGATIVE) H Urine Glucose (UA) Negative (NEGATIVE) Urine Ketones Negative (NEGATIVE) Urine Blood Negative (NEGATIVE) Urine Nitrite Negative (NEGATIVE) Urine Bilirubin Negative (NEGATIVE) Urine Urobilinogen Normal MG/DL (0.0-1.0) Urine Leukocyte Esterase 1+ (NEGATIVE) H Urine RBC 2-4 /HPF (0 - 2) H Urine WBC 2-4 /HPF (0 - 2) Urine Squamous Epithelial Cells Moderate /LPF (NONE/OCC) H Urine Bacteria Few /HPF (NONE) Urine Eosinophils None seen (NONE SEEN) Urine Random Creatinine Pending Urine Random Microalbumin Pending Urine Random Total Protein 270 MG/DL (< 11.9) H Urine Random Sodium 54 mmol/L (20-110) Urine Creatinine 66.6 MG/DL (30.0-125.0) Urine Microalbumin/Creatinine Ratio Pending White Blood Count 5.6 K/UL (4.8-10.8) Red Blood Count 2.63 M/UL (4.20-5.40) L Hemoglobin 8.5 G/DL (12.0-16.0) L Hematocrit 26.1 % (37.0-47.0) L Mean Corpuscular Volume 99 FL (80-99) Mean Corpuscular Hemoglobin 32.2 PG (27.0-31.0) H Mean Corpuscular Hemoglobin Concent 32.5 G/DL (32.0-36.0) Red Cell Distribution Width 13.2 % (11.6-14.8) Platelet Count 196 K/UL (150-450) Mean Platelet Volume 7.9 FL (6.5-10.1) Neutrophils (%) (Auto) 66.9 % (45.0-75.0) Lymphocytes (%) (Auto) 20.6 % (20.0-45.0) Monocytes (%) (Auto) 8.2 % (1.0-10.0) Eosinophils (%) (Auto) 3.7 % (0.0-3.0) H Basophils (%) (Auto) 0.7 % (0.0-2.0) Sodium Level 142 MMOL/L (136-145) Potassium Level 4.4 MMOL/L (3.5-5.1) Chloride Level 107 MMOL/L (98-107) Carbon Dioxide Level 26 MMOL/L (21-32) Anion Gap 9 mmol/L (5-15) Blood Urea Nitrogen 66 mg/dL (7-18) H Creatinine 3.5 MG/DL (0.55-1.30) H Estimat Glomerular Filtration Rate 16.5 mL/min (>60) Glucose Level 165 MG/DL (74-106) H Calcium Level 8.5 MG/DL (8.5-10.1) Total Bilirubin 0.3 MG/DL (0.2-1.0) Aspartate Amino Transf (AST/SGOT) 22 U/L (15-37) Alanine Aminotransferase (ALT/SGPT) 50 U/L (12-78) Alkaline Phosphatase 107 U/L (46-116) Pro-B-Type Natriuretic Peptide 7274 pg/mL (0-125) H Total Protein 7.2 G/DL (6.4-8.2) Albumin 2.9 G/DL (3.4-5.0) L Globulin 4.3 g/dL Albumin/Globulin Ratio 0.7 (1.0-2.7) L Current Medications Medications (Trade) Dose Ordered Sig/Zara Route PRN Reason Start Time Stop Time Status Last Admin Dose Admin Acetaminophen (Tylenol) 650 mg Q4H PRN ORAL T>100.5 07/15/18 15:30 08/14/18 15:29 Al Hydroxide/Mg Hydroxide (Mylanta II) 30 ml Q6H PRN ORAL dyspepsia 07/15/18 15:30 08/14/18 15:29 Albuterol/ Ipratropium (Albuterol/ Ipratropium) 3 ml Q4H PRN HHN Shortness of Breath 07/17/18 09:30 07/22/18 09:29 07/18/18 09:28 Amlodipine Besylate (Norvasc) 10 mg DAILY ORAL 07/16/18 09:00 08/15/18 08:59 07/18/18 09:04 Aspirin (ASA) 81 mg DAILY ORAL 07/16/18 09:00 08/15/18 08:59 07/18/18 08:53 Atorvastatin Calcium (Lipitor) 80 mg BEDTIME ORAL 07/16/18 21:00 08/15/18 20:59 07/17/18 21:09 Carvedilol (Coreg) 37.5 mg EVERY 12 HOURS ORAL 07/16/18 09:00 08/15/18 08:59 07/18/18 09:03 Clonidine HCl (Catapres Tab) 0.1 mg Q6H PRN ORAL SBP > 160mmHg 07/15/18 21:30 08/14/18 21:29 07/15/18 21:44 Dextrose (Dextrose 50%) 25 ml Q30M PRN IV Hypoglycemia 07/15/18 15:30 08/14/18 15:26 Dextrose (Dextrose 50%) 50 ml Q30M PRN IV hypoglycemia 07/15/18 15:30 08/14/18 15:29 Epoetin Yordan (Procrit (for non ESRD use)) 4,000 units 2XW@2100 SUBQ 07/17/18 21:00 08/16/18 20:59 07/17/18 21:10 Gabapentin (Neurontin) 800 mg THREE TIMES A DAY ORAL 07/15/18 20:00 08/14/18 19:59 07/18/18 08:53 Guaifenesin (Robitussin) 100 mg Q4H PRN ORAL For Cough 07/17/18 09:30 08/16/18 09:29 Hydralazine HCl (Apresoline) 100 mg Q8HR ORAL 07/16/18 14:00 08/15/18 13:59 07/17/18 23:14 Insulin Aspart (NovoLOG) BEFORE MEALS AND HS SUBQ 07/15/18 22:30 08/14/18 22:29 07/17/18 21:14 Iron Sucrose 100 mg/Sodium Chloride 60 ml @ 240 mls/hr BEDTIME IV 07/17/18 21:00 07/21/18 21:00 07/17/18 21:10 Levofloxacin 100 ml @ 100 mls/hr Q48H IVPB 07/17/18 17:00 07/24/18 16:59 07/17/18 17:17 Lorazepam (Ativan 2mg/ml 1ml) 0.5 mg Q4H PRN IV For Anxiety 07/15/18 15:30 07/22/18 15:29 Mirtazapine (Remeron) 7.5 mg BEDTIME ORAL 07/15/18 22:00 08/15/18 20:59 07/17/18 21:08 Morphine Sulfate (Morphine Sulfate) 2 mg Q4H PRN IVP Breakthrough Pain 07/17/18 09:38 07/24/18 09:37 07/18/18 08:53 Ondansetron HCl (Zofran) 4 mg Q6H PRN IVP Nausea & Vomiting 07/15/18 15:30 08/14/18 15:29 Oxycodone HCl (Roxicodone) 5 mg Q4H PRN ORAL Moderate Pain (Pain Scale 4-6) 07/15/18 22:00 07/22/18 21:59 07/17/18 23:14 Oxycodone/ Acetaminophen (Percocet 10/325) 1 tab Q4H PRN ORAL Severe Pain (Pain Scale 7-10) 07/15/18 21:30 07/22/18 21:29 07/17/18 06:23 Polyethylene Glycol (Miralax) 17 gm HSPRN PRN ORAL Constipation 07/15/18 21:00 08/14/18 20:59 Zolpidem Tartrate (Ambien) 5 mg HSPRN PRN ORAL Insomnia 07/15/18 21:00 07/22/18 20:59 07/16/18 23:27 Juliane Mcdonald M.D. Jul 18, 2018 09:43
--- NOTE | 2018-07-18 10:18 | General Progress Note ---
Assessment/Plan Status: stable Assessment/Plan #. Anemia of chronic disease -- patient with ongoing kidney damage, cr is worse now --> anemia panel has been reviewed. Ferritin at 214, TIBC at 214 --> nephrology is following, appreciate recs --> continue on epogen --> transfuse if hgb is <7 --> hemolysis w/u has been reviewed # Acute versus chronic renal failure. As per renal etiology of acute renal failure is cardiorenal syndrome, prerenal azotemia versus unstable --> bp to improve on current meds #. Coagulopathy with elevated inr --> recheck in several days, if persists consider ordering mixing Pt/Ptt study #. Chronic kidney disease, most likely due to diabetic nephropathy since the patient has some degree of diabetic neuropathy. --> recs per nephro #. History of congestive heart failure, but at this point the patient seems to be euvolemic. --> per cardiology #. 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 #. Uncontrolled hypertension. --> now better Greatly appreciate consultation Subjective Date patient seen: Jul 18, 2018 Hematologic/Lymphatic: Reports: anemia Allergies: Coded Allergies: LISINOPRIL (Verified Allergy, Unknown, 07/16/18) LOSARTAN (Verified Allergy, Unknown, 07/16/18) All Systems: reviewed and negative except above Subjective Pt awake and alert. Pt refusing all meds. H/H stable. Objective Last 24 Hour Vital Signs Date Time Temp Pulse Resp B/P (MAP) Pulse Ox O2 Delivery O2 Flow Rate FiO2 07/18/18 09:38 70 20 98 Nasal Cannula 2.0 28 07/18/18 09:33 95 Nasal Cannula 2.0 28 07/18/18 09:33 Nasal Cannula 2.0 28 07/18/18 09:30 75 20 Nasal Cannula 2.0 28 07/18/18 09:29 70 20 95 Room Air 21 07/18/18 09:04 74 162/79 07/18/18 09:03 74 162/79 07/18/18 08:00 74 22 162/79 (106) 92 07/18/18 04:00 64 07/18/18 04:00 98.5 64 20 113/70 (84) 93 07/18/18 00:00 98.5 66 20 147/60 (89) 95 07/18/18 00:00 65 07/17/18 23:14 147/60 07/17/18 21:09 67 163/66 07/17/18 21:00 Room Air 07/17/18 20:00 62 07/17/18 20:00 98.2 67 20 163/66 (98) 95 07/17/18 17:21 97.8 07/17/18 16:00 62 07/17/18 16:00 97.8 65 21 116/50 (72) 94 07/17/18 13:07 139/65 07/17/18 12:00 97.9 64 18 139/65 (89) 95 07/17/18 12:00 64 Intake and Output 07/17/18 07/18/18 18:59 06:59 Intake Total 360 ml Balance 360 ml Intake Oral 300 ml IV Total 60 ml # Voids 3 2 Laboratory Tests 07/17/18 14:03: Urine Color Pale yellow, Urine Appearance Clear, Urine pH 7, Urine Specific [place] 1.010, Urine Protein 4+H, Urine Glucose (UA) Negative, Urine Ketones Negative, Urine Blood Negative, Urine Nitrite Negative, Urine Bilirubin Negative , Urine Urobilinogen Normal, Urine Leukocyte Esterase 1+H, Urine RBC 2-4H, Urine WBC 2-4, Urine Squamous Epithelial Cells ModerateH, Urine Bacteria Few, Urine Eosinophils None seen, Urine Random Creatinine [Pending], Urine Random Microalbumin [Pending], Urine Random Total Protein 270H, Urine Random Sodium 54 , Urine Creatinine 66.6, Urine Microalbumin/Creatinine Ratio [Pending] 07/18/18 05:45: White Blood Count 5.6, Red Blood Count 2.63L, Hemoglobin 8.5L, Hematocrit 26.1L , Mean Corpuscular Volume 99, Mean Corpuscular Hemoglobin 32.2H, Mean Corpuscular Hemoglobin Concent 32.5, Red Cell Distribution Width 13.2, Platelet Count 196, Mean Platelet Volume 7.9, Neutrophils (%) (Auto) 66.9, Lymphocytes (% ) (Auto) 20.6, Monocytes (%) (Auto) 8.2, Eosinophils (%) (Auto) 3.7H, Basophils (%) (Auto) 0.7, Sodium Level 142, Potassium Level 4.4, Chloride Level 107, Carbon Dioxide Level 26, Anion Gap 9, Blood Urea Nitrogen 66H, Creatinine 3.5H, Estimat Glomerular Filtration Rate 16.5, Glucose Level 165H, Calcium Level 8.5, Total Bilirubin 0.3, Aspartate Amino Transf (AST/SGOT) 22, Alanine Aminotransferase (ALT/SGPT) 50, Alkaline Phosphatase 107, Pro-B-Type Natriuretic Peptide 7274H, Total Protein 7.2, Albumin 2.9L, Globulin 4.3, Albumin/Globulin Ratio 0.7L Height (Feet): 5 Height (Inches): 2.00 Weight (Pounds): 164 Objective VITAL SIGNS: have been reviewed HEAD AND NECK: No JVP. No LAD. No thyromegaly. Extraocular movements intact. Pupils are reactive to light and accommodation. LUNGS: Decreased breathing sounds on both sides. CARDIAC: Regular rate and rhythm. S1-S2. No murmur. No rub. ABDOMEN: Soft, nontender, and nondistended. EXTREMITIES: 1+ edema. No clubbing. No cyanosis. Amandeep Howell MD Jul 18, 2018 10:18
--- NOTE | 2018-07-18 10:52 | Pulmonology Progress Note ---
Assessment/Plan Problems: (1) Moderate pulmonary arterial systolic hypertension (2) Acute respiratory failure (3) Solitary kidney (4) Diabetic nephropathy (5) Cardiomegaly (6) Hypertension (7) Anemia (8) Diabetic neuropathy (9) Diabetes mellitus Assessment/Plan doubt acute pneumonia CT of chest to evaluate RLL infiltrate, ( can't do with contrast b/o renal insufficiency) ]respiratory status stable sinus rhythm echo showed normal EF but increased pulmonary artery pressure US of kidneys showed only one kidney anemia seems to be chronic Subjective ROS Limited/Unobtainable: No Interval Events: no new complains Allergies: Coded Allergies: LISINOPRIL (Verified Allergy, Unknown, 07/16/18) LOSARTAN (Verified Allergy, Unknown, 07/16/18) Objective Last 24 Hour Vital Signs Date Time Temp Pulse Resp B/P (MAP) Pulse Ox O2 Delivery O2 Flow Rate FiO2 07/18/18 09:38 70 20 98 Nasal Cannula 2.0 28 07/18/18 09:33 95 Nasal Cannula 2.0 28 07/18/18 09:33 Nasal Cannula 2.0 28 07/18/18 09:30 75 20 Nasal Cannula 2.0 28 07/18/18 09:29 70 20 95 Room Air 21 07/18/18 09:04 74 162/79 07/18/18 09:03 74 162/79 07/18/18 08:00 74 22 162/79 (106) 92 07/18/18 04:00 64 07/18/18 04:00 98.5 64 20 113/70 (84) 93 07/18/18 00:00 98.5 66 20 147/60 (89) 95 07/18/18 00:00 65 07/17/18 23:14 147/60 07/17/18 21:09 67 163/66 07/17/18 21:00 Room Air 07/17/18 20:00 62 07/17/18 20:00 98.2 67 20 163/66 (98) 95 07/17/18 17:21 97.8 07/17/18 16:00 62 07/17/18 16:00 97.8 65 21 116/50 (72) 94 07/17/18 13:07 139/65 07/17/18 12:00 97.9 64 18 139/65 (89) 95 07/17/18 12:00 64 Intake and Output 07/17/18 07/18/18 19:00 07:00 Intake Total 360 ml Balance 360 ml Intake Oral 300 ml IV Total 60 ml # Voids 3 2 General Appearance: WD/WN HEENT: normocephalic, atraumatic Respiratory/Chest: chest wall non-tender, lungs clear, normal breath sounds Breasts: no masses Cardiovascular: normal peripheral pulses Abdomen: normal bowel sounds, soft, non tender Microbiology Date/Time Source Procedure Growth Status 07/15/18 14:20 Blood Blood Culture - Preliminary NO GROWTH AFTER 48 HOURS Resulted 07/15/18 14:10 Blood Blood Culture - Preliminary NO GROWTH AFTER 48 HOURS Resulted 07/15/18 15:00 Nasal Nares Influenza Types A,B Antigen (JOSSY) - Final Complete Laboratory Tests 07/17/18 14:03: Urine Color Pale yellow, Urine Appearance Clear, Urine pH 7, Urine Specific [place] 1.010, Urine Protein 4+H, Urine Glucose (UA) Negative, Urine Ketones Negative, Urine Blood Negative, Urine Nitrite Negative, Urine Bilirubin Negative , Urine Urobilinogen Normal, Urine Leukocyte Esterase 1+H, Urine RBC 2-4H, Urine WBC 2-4, Urine Squamous Epithelial Cells ModerateH, Urine Bacteria Few, Urine Eosinophils None seen, Urine Random Creatinine [Pending], Urine Random Microalbumin [Pending], Urine Random Total Protein 270H, Urine Random Sodium 54 , Urine Creatinine 66.6, Urine Microalbumin/Creatinine Ratio [Pending] 07/18/18 05:45: White Blood Count 5.6, Red Blood Count 2.63L, Hemoglobin 8.5L, Hematocrit 26.1L , Mean Corpuscular Volume 99, Mean Corpuscular Hemoglobin 32.2H, Mean Corpuscular Hemoglobin Concent 32.5, Red Cell Distribution Width 13.2, Platelet Count 196, Mean Platelet Volume 7.9, Neutrophils (%) (Auto) 66.9, Lymphocytes (% ) (Auto) 20.6, Monocytes (%) (Auto) 8.2, Eosinophils (%) (Auto) 3.7H, Basophils (%) (Auto) 0.7, Sodium Level 142, Potassium Level 4.4, Chloride Level 107, Carbon Dioxide Level 26, Anion Gap 9, Blood Urea Nitrogen 66H, Creatinine 3.5H, Estimat Glomerular Filtration Rate 16.5, Glucose Level 165H, Calcium Level 8.5, Total Bilirubin 0.3, Aspartate Amino Transf (AST/SGOT) 22, Alanine Aminotransferase (ALT/SGPT) 50, Alkaline Phosphatase 107, Pro-B-Type Natriuretic Peptide 7274H, Total Protein 7.2, Albumin 2.9L, Globulin 4.3, Albumin/Globulin Ratio 0.7L Current Medications Medications (Trade) Dose Ordered Sig/Zara Route PRN Reason Start Time Stop Time Status Last Admin Dose Admin Acetaminophen (Tylenol) 650 mg Q4H PRN ORAL T>100.5 07/15/18 15:30 08/14/18 15:29 Al Hydroxide/Mg Hydroxide (Mylanta II) 30 ml Q6H PRN ORAL dyspepsia 07/15/18 15:30 08/14/18 15:29 Albuterol/ Ipratropium (Albuterol/ Ipratropium) 3 ml Q4H PRN HHN Shortness of Breath 07/17/18 09:30 07/22/18 09:29 07/18/18 09:28 Amlodipine Besylate (Norvasc) 10 mg DAILY ORAL 07/16/18 09:00 08/15/18 08:59 07/18/18 09:04 Aspirin (ASA) 81 mg DAILY ORAL 07/16/18 09:00 08/15/18 08:59 07/18/18 08:53 Atorvastatin Calcium (Lipitor) 80 mg BEDTIME ORAL 07/16/18 21:00 08/15/18 20:59 07/17/18 21:09 Carvedilol (Coreg) 37.5 mg EVERY 12 HOURS ORAL 07/16/18 09:00 08/15/18 08:59 07/18/18 09:03 Clonidine HCl (Catapres Tab) 0.1 mg Q6H PRN ORAL SBP > 160mmHg 07/15/18 21:30 08/14/18 21:29 07/15/18 21:44 Dextrose (Dextrose 50%) 25 ml Q30M PRN IV Hypoglycemia 07/15/18 15:30 08/14/18 15:26 Dextrose (Dextrose 50%) 50 ml Q30M PRN IV hypoglycemia 07/15/18 15:30 08/14/18 15:29 Epoetin Yordan (Procrit (for non ESRD use)) 4,000 units 2XW@2100 SUBQ 07/17/18 21:00 1/9/19 20:59 07/17/18 21:10 Gabapentin (Neurontin) 800 mg THREE TIMES A DAY ORAL 07/15/18 20:00 08/14/18 19:59 07/18/18 08:53 Guaifenesin (Robitussin) 100 mg Q4H PRN ORAL For Cough 07/17/18 09:30 08/16/18 09:29 Hydralazine HCl (Apresoline) 100 mg Q8HR ORAL 07/16/18 14:00 08/15/18 13:59 07/17/18 23:14 Insulin Aspart (NovoLOG) BEFORE MEALS AND HS SUBQ 07/15/18 22:30 08/14/18 22:29 07/17/18 21:14 Iron Sucrose 100 mg/Sodium Chloride 60 ml @ 240 mls/hr BEDTIME IV 07/17/18 21:00 07/21/18 21:00 07/17/18 21:10 Levofloxacin (Levaquin) 500 mg Q48H ORAL 07/19/18 17:00 07/26/18 16:59 Lorazepam (Ativan 2mg/ml 1ml) 0.5 mg Q4H PRN IV For Anxiety 07/15/18 15:30 07/22/18 15:29 Mirtazapine (Remeron) 7.5 mg BEDTIME ORAL 07/15/18 22:00 08/15/18 20:59 07/17/18 21:08 Morphine Sulfate (Morphine Sulfate) 2 mg Q4H PRN IVP Breakthrough Pain 07/17/18 09:38 07/24/18 09:37 07/18/18 08:53 Ondansetron HCl (Zofran) 4 mg Q6H PRN IVP Nausea & Vomiting 07/15/18 15:30 08/14/18 15:29 Oxycodone HCl (Roxicodone) 5 mg Q4H PRN ORAL Moderate Pain (Pain Scale 4-6) 07/15/18 22:00 07/22/18 21:59 07/17/18 23:14 Oxycodone/ Acetaminophen (Percocet 10/325) 1 tab Q4H PRN ORAL Severe Pain (Pain Scale 7-10) 07/15/18 21:30 07/22/18 21:29 07/17/18 06:23 Polyethylene Glycol (Miralax) 17 gm HSPRN PRN ORAL Constipation 07/15/18 21:00 08/14/18 20:59 Zolpidem Tartrate (Ambien) 5 mg HSPRN PRN ORAL Insomnia 07/15/18 21:00 07/22/18 20:59 07/16/18 23:27 Hakeem Godinez MD Jul 18, 2018 10:52
[2018-07-18] MEDS: oxyCODONE 5mg IR tab ORAL PRN (11:02)
--- NOTE | 2018-07-18 11:17 | Diagnostic Imaging Report ---
Indication: Dyspnea Comparison: 07/15/2018 A single view chest radiograph was obtained. Findings: Pulmonary vascular congestion and interstitial densities demonstrated. The heart is mildly enlarged. Bones are slightly osteopenic IMPRESSION: CHF suspected. Correlate clinically. No change from the prior exam
[2018-07-18 12:00] VITALS: BP 178/77
--- NOTE | 2018-07-18 12:49 | GI Progress Note ---
Assessment/Plan Problems: (1) Constipation ICD Codes: K59.00 - Constipation, unspecified SNOMED: 90473692 (2) Abdominal pain ICD Codes: R10.9 - Unspecified abdominal pain SNOMED: 72572691 (3) Anemia ICD Codes: D64.9 - Anemia, unspecified SNOMED: 430790543 Status: stable Status Narrative Discussed with Dr. Yarbrough. Assessment/Plan fu pulmonary recs anemia work up, will consider GI procedures OB stool r/o GI bleed monitor H&H, prn transfusions bowel regime >> mag citrate x1 ppi fu labs The patient was seen and examined at bedside and all new and available data was reviewed in the patients chart. I agree with the above findings, impression and plan. (Patient seen earlier today. Signature stamp does not reflect patient encounter time.). - Marco Antonio Yarbrough MD Subjective Subjective constipated Objective Last 24 Hour Vital Signs Date Time Temp Pulse Resp B/P (MAP) Pulse Ox O2 Delivery O2 Flow Rate FiO2 07/18/18 12:00 97.2 72 18 178/77 (110) 93 07/18/18 09:38 70 20 98 Nasal Cannula 2.0 28 07/18/18 09:33 95 Nasal Cannula 2.0 28 07/18/18 09:33 Nasal Cannula 2.0 28 07/18/18 09:30 75 20 Nasal Cannula 2.0 28 07/18/18 09:29 70 20 95 Room Air 21 07/18/18 09:04 74 162/79 07/18/18 09:03 74 162/79 07/18/18 09:00 Nasal Cannula 2.0 07/18/18 08:00 74 22 162/79 (106) 92 07/18/18 04:00 64 07/18/18 04:00 98.5 64 20 113/70 (84) 93 07/18/18 00:00 98.5 66 20 147/60 (89) 95 07/18/18 00:00 65 07/17/18 23:14 147/60 07/17/18 21:09 67 163/66 07/17/18 21:00 Room Air 07/17/18 20:00 62 07/17/18 20:00 98.2 67 20 163/66 (98) 95 07/17/18 17:21 97.8 07/17/18 16:00 62 07/17/18 16:00 97.8 65 21 116/50 (72) 94 07/17/18 13:07 139/65 Intake and Output 07/17/18 07/18/18 19:00 07:00 Intake Total 360 ml Balance 360 ml Intake Oral 300 ml IV Total 60 ml # Voids 3 2 Laboratory Tests Test 07/17/18 14:03 07/18/18 05:45 Urine Color Pale yellow Urine Appearance Clear Urine pH 7 (4.5-8.0) Urine Specific [place] 1.010 (1.005-1.035) Urine Protein 4+ (NEGATIVE) H Urine Glucose (UA) Negative (NEGATIVE) Urine Ketones Negative (NEGATIVE) Urine Blood Negative (NEGATIVE) Urine Nitrite Negative (NEGATIVE) Urine Bilirubin Negative (NEGATIVE) Urine Urobilinogen Normal MG/DL (0.0-1.0) Urine Leukocyte Esterase 1+ (NEGATIVE) H Urine RBC 2-4 /HPF (0 - 2) H Urine WBC 2-4 /HPF (0 - 2) Urine Squamous Epithelial Cells Moderate /LPF (NONE/OCC) H Urine Bacteria Few /HPF (NONE) Urine Eosinophils None seen (NONE SEEN) Urine Random Creatinine Pending Urine Random Microalbumin Pending Urine Random Total Protein 270 MG/DL (< 11.9) H Urine Random Sodium 54 mmol/L (20-110) Urine Creatinine 66.6 MG/DL (30.0-125.0) Urine Microalbumin/Creatinine Ratio Pending White Blood Count 5.6 K/UL (4.8-10.8) Red Blood Count 2.63 M/UL (4.20-5.40) L Hemoglobin 8.5 G/DL (12.0-16.0) L Hematocrit 26.1 % (37.0-47.0) L Mean Corpuscular Volume 99 FL (80-99) Mean Corpuscular Hemoglobin 32.2 PG (27.0-31.0) H Mean Corpuscular Hemoglobin Concent 32.5 G/DL (32.0-36.0) Red Cell Distribution Width 13.2 % (11.6-14.8) Platelet Count 196 K/UL (150-450) Mean Platelet Volume 7.9 FL (6.5-10.1) Neutrophils (%) (Auto) 66.9 % (45.0-75.0) Lymphocytes (%) (Auto) 20.6 % (20.0-45.0) Monocytes (%) (Auto) 8.2 % (1.0-10.0) Eosinophils (%) (Auto) 3.7 % (0.0-3.0) H Basophils (%) (Auto) 0.7 % (0.0-2.0) Sodium Level 142 MMOL/L (136-145) Potassium Level 4.4 MMOL/L (3.5-5.1) Chloride Level 107 MMOL/L (98-107) Carbon Dioxide Level 26 MMOL/L (21-32) Anion Gap 9 mmol/L (5-15) Blood Urea Nitrogen 66 mg/dL (7-18) H Creatinine 3.5 MG/DL (0.55-1.30) H Estimat Glomerular Filtration Rate 16.5 mL/min (>60) Glucose Level 165 MG/DL (74-106) H Calcium Level 8.5 MG/DL (8.5-10.1) Total Bilirubin 0.3 MG/DL (0.2-1.0) Aspartate Amino Transf (AST/SGOT) 22 U/L (15-37) Alanine Aminotransferase (ALT/SGPT) 50 U/L (12-78) Alkaline Phosphatase 107 U/L (46-116) Pro-B-Type Natriuretic Peptide 7274 pg/mL (0-125) H Total Protein 7.2 G/DL (6.4-8.2) Albumin 2.9 G/DL (3.4-5.0) L Globulin 4.3 g/dL Albumin/Globulin Ratio 0.7 (1.0-2.7) L HIV (1&2) Antibody Rapid Negative (NEGATIVE) Height (Feet): 5 Height (Inches): 2.00 Weight (Pounds): 164 General Appearance: WD/WN, no apparent distress, alert Cardiovascular: normal rate Respiratory/Chest: normal breath sounds, no respiratory distress Abdominal Exam: normal bowel sounds, non tender, soft Extremities: normal range of motion, non-tender Lance Sosa NP Jul 18, 2018 12:49
[2018-07-18] MEDS ORDERED: Magnesium Citrate Liq Btl ORAL ONE (14:00)
[2018-07-18] MEDS ORDERED: Tubing IV Secondary IV ONE (15:08)
--- NOTE | 2018-07-18 15:26 | General Progress Note ---
Assessment/Plan Problem List: (1) SOB (shortness of breath) ICD Codes: R06.02 - Shortness of breath SNOMED: 215695250 (2) CHF (congestive heart failure) ICD Codes: I50.9 - Heart failure, unspecified SNOMED: 98054707 (3) Renal failure ICD Codes: N19 - Unspecified kidney failure SNOMED: 83788728 (4) Asthma ICD Codes: J45.909 - Unspecified asthma, uncomplicated SNOMED: 196339323 (5) Hypertension ICD Codes: I10 - Essential (primary) hypertension SNOMED: 56705280 (6) Diabetic neuropathy ICD Codes: E11.40 - Type 2 diabetes mellitus with diabetic neuropathy, unspecified SNOMED: 88517274, 539865767, 975997255 (7) Diabetes mellitus ICD Codes: E11.9 - Type 2 diabetes mellitus without complications SNOMED: 07886954 (8) Anemia ICD Codes: D64.9 - Anemia, unspecified SNOMED: 353626313 Status: stable, progressing Assessment/Plan o2 pulm tx diurese bp bs control cbc bmp am dc plan snf Subjective Constitutional: Reports: weakness Respiratory: Reports: shortness of breath Allergies: Coded Allergies: LISINOPRIL (Verified Allergy, Unknown, 07/16/18) LOSARTAN (Verified Allergy, Unknown, 07/16/18) All Systems: reviewed and negative except above Subjective o2nc calm Objective Last 24 Hour Vital Signs Date Time Temp Pulse Resp B/P (MAP) Pulse Ox O2 Delivery O2 Flow Rate FiO2 07/18/18 13:08 178/77 07/18/18 12:00 97.2 72 18 178/77 (110) 93 07/18/18 12:00 69 07/18/18 09:38 70 20 98 Nasal Cannula 2.0 28 07/18/18 09:33 95 Nasal Cannula 2.0 28 07/18/18 09:33 Nasal Cannula 2.0 28 07/18/18 09:30 75 20 Nasal Cannula 2.0 28 07/18/18 09:29 70 20 95 Room Air 21 07/18/18 09:04 74 162/79 07/18/18 09:03 74 162/79 07/18/18 09:00 Nasal Cannula 2.0 07/18/18 08:00 74 22 162/79 (106) 92 07/18/18 08:00 74 07/18/18 04:00 64 07/18/18 04:00 98.5 64 20 113/70 (84) 93 07/18/18 00:00 98.5 66 20 147/60 (89) 95 07/18/18 00:00 65 07/17/18 23:14 147/60 07/17/18 21:09 67 163/66 07/17/18 21:00 Room Air 07/17/18 20:00 62 07/17/18 20:00 98.2 67 20 163/66 (98) 95 07/17/18 17:21 97.8 07/17/18 16:00 62 07/17/18 16:00 97.8 65 21 116/50 (72) 94 Intake and Output 07/17/18 07/18/18 19:00 07:00 Intake Total 360 ml Balance 360 ml Intake Oral 300 ml IV Total 60 ml # Voids 3 2 Laboratory Tests 07/18/18 05:45: White Blood Count 5.6, Red Blood Count 2.63L, Hemoglobin 8.5L, Hematocrit 26.1L , Mean Corpuscular Volume 99, Mean Corpuscular Hemoglobin 32.2H, Mean Corpuscular Hemoglobin Concent 32.5, Red Cell Distribution Width 13.2, Platelet Count 196, Mean Platelet Volume 7.9, Neutrophils (%) (Auto) 66.9, Lymphocytes (% ) (Auto) 20.6, Monocytes (%) (Auto) 8.2, Eosinophils (%) (Auto) 3.7H, Basophils (%) (Auto) 0.7, Sodium Level 142, Potassium Level 4.4, Chloride Level 107, Carbon Dioxide Level 26, Anion Gap 9, Blood Urea Nitrogen 66H, Creatinine 3.5H, Estimat Glomerular Filtration Rate 16.5, Glucose Level 165H, Calcium Level 8.5, Total Bilirubin 0.3, Aspartate Amino Transf (AST/SGOT) 22, Alanine Aminotransferase (ALT/SGPT) 50, Alkaline Phosphatase 107, Pro-B-Type Natriuretic Peptide 7274H, Total Protein 7.2, Albumin 2.9L, Globulin 4.3, Albumin/Globulin Ratio 0.7L, HIV (1&2) Antibody Rapid Negative Height (Feet): 5 Height (Inches): 2.00 Weight (Pounds): 164 General Appearance: lethargic EENT: normal ENT inspection Neck: normal alignment Cardiovascular: normal peripheral pulses, normal rate, regular rhythm Respiratory/Chest: chest wall non-tender, decreased breath sounds Abdomen: normal bowel sounds, non tender, soft Extremities: normal inspection Edema: no edema noted Arm (L), no edema noted Arm (R), no edema noted Leg (L), no edema noted Leg (R), no edema noted Pedal (L), no edema noted Pedal (R), no edema noted Generalized Neurologic: motor weakness Skin: normal pigmentation, warm/dry Naun Geiger DO Jul 18, 2018 15:26
[2018-07-18 16:10] VITALS: BP 156/64
--- NOTE | 2018-07-18 17:40 | Nephrology Progress Note ---
Assessment/Plan Assessment 1. Acute versus chronic renal failure in setting of solitary kidney 2. Chronic kidney disease, most likely due to diabetic nephropathy since the patient has some degree of diabetic neuropathy. 3. History of congestive heart failure, but at this point the patient seems to be euvolemic. 4. Severe anemia or anemia of chronic kidney disease. 5. 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 6. Uncontrolled hypertension. Plan hold lasix monitoring renal function avoid NSAID replace electrolyte replace electrolyte as need it Subjective Constitutional: Reports: no symptoms HEENT: Reports: no symptoms Genitourinary: Reports: no symptoms Neurologic/Psychiatric: Reports: no symptoms Subjective alert awake denies any cp ,sob,nausea or vomiting Objective Objective Last 24 Hour Vital Signs Date Time Temp Pulse Resp B/P (MAP) Pulse Ox O2 Delivery O2 Flow Rate FiO2 07/18/18 16:10 97.9 71 18 156/64 (94) 95 07/18/18 13:08 178/77 07/18/18 12:00 97.2 72 18 178/77 (110) 93 07/18/18 12:00 69 07/18/18 09:38 70 20 98 Nasal Cannula 2.0 28 07/18/18 09:33 95 Nasal Cannula 2.0 28 07/18/18 09:33 Nasal Cannula 2.0 28 07/18/18 09:30 75 20 Nasal Cannula 2.0 28 07/18/18 09:29 70 20 95 Room Air 21 07/18/18 09:04 74 162/79 07/18/18 09:03 74 162/79 07/18/18 09:00 Nasal Cannula 2.0 07/18/18 08:00 74 22 162/79 (106) 92 07/18/18 08:00 74 07/18/18 04:00 64 07/18/18 04:00 98.5 64 20 113/70 (84) 93 07/18/18 00:00 98.5 66 20 147/60 (89) 95 07/18/18 00:00 65 07/17/18 23:14 147/60 07/17/18 21:09 67 163/66 07/17/18 21:00 Room Air 07/17/18 20:00 62 07/17/18 20:00 98.2 67 20 163/66 (98) 95 Intake and Output 07/17/18 07/18/18 19:00 07:00 Intake Total 360 ml Balance 360 ml Intake Oral 300 ml IV Total 60 ml # Voids 3 2 Laboratory Tests 07/18/18 05:45: White Blood Count 5.6, Red Blood Count 2.63L, Hemoglobin 8.5L, Hematocrit 26.1L , Mean Corpuscular Volume 99, Mean Corpuscular Hemoglobin 32.2H, Mean Corpuscular Hemoglobin Concent 32.5, Red Cell Distribution Width 13.2, Platelet Count 196, Mean Platelet Volume 7.9, Neutrophils (%) (Auto) 66.9, Lymphocytes (% ) (Auto) 20.6, Monocytes (%) (Auto) 8.2, Eosinophils (%) (Auto) 3.7H, Basophils (%) (Auto) 0.7, Sodium Level 142, Potassium Level 4.4, Chloride Level 107, Carbon Dioxide Level 26, Anion Gap 9, Blood Urea Nitrogen 66H, Creatinine 3.5H, Estimat Glomerular Filtration Rate 16.5, Glucose Level 165H, Calcium Level 8.5, Total Bilirubin 0.3, Aspartate Amino Transf (AST/SGOT) 22, Alanine Aminotransferase (ALT/SGPT) 50, Alkaline Phosphatase 107, Pro-B-Type Natriuretic Peptide 7274H, Total Protein 7.2, Albumin 2.9L, Globulin 4.3, Albumin/Globulin Ratio 0.7L, HIV (1&2) Antibody Rapid Negative Height (Feet): 5 Height (Inches): 2.00 Weight (Pounds): 164 Objective HEAD AND NECK: No JVP. No LAD. No thyromegaly. Extraocular movements intact. Pupils are reactive to light and accommodation. LUNGS: Decreased breathing sounds on both sides. CARDIAC: Regular rate and rhythm. S1-S2. No murmur. No rub. ABDOMEN: Soft, nontender, and nondistended. EXTREMITIES: 1+ edema. No clubbing. No cyanosis. Nabila Park MD Jul 18, 2018 17:40
[2018-07-18 20:00] VITALS: BP 143/63
[2018-07-18] MEDS: Iron Sucrose 100 MG in NS 55 ML IV SCH (21:44)
[2018-07-18] MEDS: Atorvastatin 80mg tab ORAL SCH (21:44)
[2018-07-19] VITALS (7 sets, daily range): BP systolic 118–146; BP diastolic 54–86
[2018-07-19] MEDS: oxyCODONE 5mg IR tab ORAL PRN (00:40)
[2018-07-19] MEDS: HydrALAZINE 50mg tab ORAL SCH ×3 (05:40→23:46)
[2018-07-19] MEDS: NovoLOG Insulin Flexpen SUBQ SCH ×4 (05:41→20:53)
[2018-07-19] MEDS: Morphine Sulfate 2mg/ml Inj IVP PRN ×4 (05:41→23:45)
--- NOTE | 2018-07-19 06:42 | General Progress Note ---
Assessment/Plan Assessment/Plan #. Anemia of chronic disease -- patient with ongoing kidney damage, cr is worse now --> anemia panel has been reviewed. Ferritin at 214, TIBC at 214 --> nephrology is following, appreciate recs --> continue on epogen --> transfuse if hgb is <7 --> hemolysis w/u has been reviewed and none noted #. Coagulopathy with elevated inr on admission --> likely malnutrition related, now inr better # Acute versus chronic renal failure on ckd. As per renal etiology of acute renal failure is cardiorenal syndrome, prerenal azotemia versus unstable --> bp to improve on current meds --> appreciate renal recs #. History of congestive heart failure, but at this point the patient seems to be euvolemic. --> per cardiology #. 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 #. Uncontrolled hypertension. --> now better Greatly appreciate consultation Subjective Constitutional: Denies: no symptoms, chills, diaphoresis, fever, malaise, weakness, other HEENT: Denies: no symptoms, eye pain, blurred vision, tearing, double vision, ear pain, ear discharge, nose pain, nose congestion, throat pain, throat swelling, mouth pain, mouth swelling, other Cardiovascular: Denies: no symptoms, chest pain, edema, irregular heart rate, lightheadedness, palpitations, syncope, other Respiratory: Denies: no symptoms, cough, orthopnea, shortness of breath, SOB with excertion, SOB at rest, sputum, stridor, wheezing, other Gastrointestinal/Abdominal: Denies: no symptoms, abdomen distended, abdominal pain, black stools, tarry stools, blood in stool, constipated, diarrhea, difficulty swallowing, nausea, poor appetite, poor fluid intake, rectal bleeding , vomiting, other Genitourinary: Denies: no symptoms, burning, discharge, frequency, flank pain, hematuria, incontinence, pain, urgency, other Neurologic/Psychiatric: Denies: no symptoms, anxiety, depressed, emotional problems, headache, numbness, paresthesia, pre-existing deficit, seizure, tingling, tremors, weakness, other Endocrine: Denies: no symptoms, excessive sweating, flushing, intolerance to cold, intolerance to heat, increased hunger, increased thirst, increased urine, unexplained weight gain, unexplained weight loss, other Hematologic/Lymphatic: Denies: no symptoms, anemia, easy bleeding, easy bruising, other Allergies: Coded Allergies: LISINOPRIL (Verified Allergy, Unknown, 07/16/18) LOSARTAN (Verified Allergy, Unknown, 07/16/18) Subjective Pt awake and alert. Pt refusing most meds. H/H stable. Renal following Objective Last 24 Hour Vital Signs Date Time Temp Pulse Resp B/P (MAP) Pulse Ox O2 Delivery O2 Flow Rate FiO2 07/19/18 05:40 146/86 07/19/18 04:00 97.5 62 19 146/86 (106) 99 07/19/18 04:00 62 07/19/18 02:11 86 20 Nasal Cannula 2.0 28 07/19/18 02:11 Nasal Cannula 2.0 28 07/19/18 02:07 98 Nasal Cannula 2.0 28 07/19/18 00:00 73 07/19/18 00:00 97.9 69 17 137/59 (85) 94 07/18/18 21:45 67 143/63 07/18/18 21:44 143/63 07/18/18 21:00 Room Air 07/18/18 20:00 97.9 67 18 143/63 (89) 96 07/18/18 20:00 71 07/18/18 16:10 97.9 71 18 156/64 (94) 95 07/18/18 16:00 67 07/18/18 13:08 178/77 07/18/18 12:00 97.2 72 18 178/77 (110) 93 07/18/18 12:00 69 07/18/18 09:38 70 20 98 Nasal Cannula 2.0 28 07/18/18 09:33 95 Nasal Cannula 2.0 28 07/18/18 09:33 Nasal Cannula 2.0 28 07/18/18 09:30 75 20 Nasal Cannula 2.0 28 07/18/18 09:29 70 20 95 Room Air 21 07/18/18 09:04 74 162/79 07/18/18 09:03 74 162/79 07/18/18 09:00 Nasal Cannula 2.0 07/18/18 08:00 74 22 162/79 (106) 92 07/18/18 08:00 74 Intake and Output 07/18/18 07/19/18 19:00 07:00 Intake Total 400 ml Output Total 300 ml Balance 100 ml Intake Oral 400 ml Output Urine Total 300 ml # Bowel Movements 1 Laboratory Tests 07/18/18 22:22: Stool Occult Blood [Pending] Height (Feet): 5 Height (Inches): 2.00 Weight (Pounds): 164 Objective VITAL SIGNS: have been reviewed HEAD AND NECK: No JVP. No LAD. No thyromegaly. Extraocular movements intact. Pupils are reactive to light and accommodation. LUNGS: Decreased breathing sounds on both sides. CARDIAC: Regular rate and rhythm. S1-S2. No murmur. No rub. ABDOMEN: Soft, nontender, and nondistended. EXTREMITIES: 1+ edema. No clubbing. No cyanosis. Amandeep Howell MD Jul 19, 2018 06:42
[2018-07-19] MEDS: Aspirin Baby 81mg ORAL SCH (08:38)
[2018-07-19] MEDS: Carvedilol 12.5mg tab ORAL SCH ×2 (08:38→20:51)
[2018-07-19 09:10] LABS: BASOPHILS % (AUTO) 0.6 % (0.0-2.0); EOSINOPHILS % (AUTO) 3.7 % (0.0-3.0); HEMATOCRIT 26.5 % (37.0-47.0); HEMOGLOBIN 8.5 G/DL (12.0-16.0); LYMPHOCYTES % (AUTO) 17.7 % (20.0-45.0); MEAN CORPUSCULAR VOLUME 99 FL (80-99); MONOCYTES % (AUTO) 7.4 % (1.0-10.0); NEUTROPHILS % (AUTO) 70.6 % (45.0-75.0); PLATELET COUNT 200 K/UL (150-450); RED BLOOD COUNT 2.68 M/UL (4.20-5.40); RED CELL DISTRIBUTION WIDTH 13.3 % (11.6-14.8); WHITE BLOOD COUNT 5.9 K/UL (4.8-10.8)
[2018-07-19 09:27] LABS: ANION GAP 10 mmol/L (5-15); BLOOD UREA NITROGEN 70 mg/dL (7-18); CALCIUM 8.5 MG/DL (8.5-10.1); CARBON DIOXIDE 25 MMOL/L (21-32); CHLORIDE 106 MMOL/L (98-107); CREATININE 3.3 MG/DL (0.55-1.30); POTASSIUM 4.4 MMOL/L (3.5-5.1); SODIUM 141 MMOL/L (136-145)
--- NOTE | 2018-07-19 11:10 | GI Progress Note ---
Assessment/Plan Problems: (1) Constipation ICD Codes: K59.00 - Constipation, unspecified SNOMED: 10650429 (2) Abdominal pain ICD Codes: R10.9 - Unspecified abdominal pain SNOMED: 79227930 (3) Anemia ICD Codes: D64.9 - Anemia, unspecified SNOMED: 919504350 Status: stable Status Narrative Discussed with Dr. Yarbrough. Assessment/Plan fu pulmonary recs OB stool r/o GI bleed pending monitor H&H, prn transfusions bowel regime >> mag citrate x1 ppi fu labs dc planning outpatient GI procedures The patient was seen and examined at bedside and all new and available data was reviewed in the patients chart. I agree with the above findings, impression and plan. (Patient seen earlier today. Signature stamp does not reflect patient encounter time.). - Marco Antonio Yarbrough MD Subjective Subjective constipated, had massive BM this morning abdominal pain improved tolerating diet Objective Last 24 Hour Vital Signs Date Time Temp Pulse Resp B/P (MAP) Pulse Ox O2 Delivery O2 Flow Rate FiO2 07/19/18 09:00 Room Air Room Air 07/19/18 08:38 63 131/63 07/19/18 08:38 63 131/63 07/19/18 08:00 97.5 63 19 131/63 (85) 98 07/19/18 05:40 146/86 07/19/18 04:00 97.5 62 19 146/86 (106) 99 07/19/18 04:00 62 07/19/18 02:11 86 20 Nasal Cannula 2.0 28 07/19/18 02:11 Nasal Cannula 2.0 28 07/19/18 02:07 98 Nasal Cannula 2.0 28 07/19/18 00:00 73 07/19/18 00:00 97.9 69 17 137/59 (85) 94 07/18/18 21:45 67 143/63 07/18/18 21:44 143/63 07/18/18 21:00 Room Air 07/18/18 20:00 97.9 67 18 143/63 (89) 96 07/18/18 20:00 71 07/18/18 16:10 97.9 71 18 156/64 (94) 95 07/18/18 16:00 67 07/18/18 13:08 178/77 07/18/18 12:00 97.2 72 18 178/77 (110) 93 07/18/18 12:00 69 Intake and Output 07/18/18 07/19/18 19:00 07:00 Intake Total 400 ml Output Total 300 ml Balance 100 ml Intake Oral 400 ml Output Urine Total 300 ml # Bowel Movements 1 Laboratory Tests Test 07/18/18 22:22 07/19/18 08:20 Stool Occult Blood Negative (NEGATIVE) White Blood Count 5.9 K/UL (4.8-10.8) Red Blood Count 2.68 M/UL (4.20-5.40) L Hemoglobin 8.5 G/DL (12.0-16.0) L Hematocrit 26.5 % (37.0-47.0) L Mean Corpuscular Volume 99 FL (80-99) Mean Corpuscular Hemoglobin 31.7 PG (27.0-31.0) H Mean Corpuscular Hemoglobin Concent 32.1 G/DL (32.0-36.0) Red Cell Distribution Width 13.3 % (11.6-14.8) Platelet Count 200 K/UL (150-450) Mean Platelet Volume 8.2 FL (6.5-10.1) Neutrophils (%) (Auto) 70.6 % (45.0-75.0) Lymphocytes (%) (Auto) 17.7 % (20.0-45.0) L Monocytes (%) (Auto) 7.4 % (1.0-10.0) Eosinophils (%) (Auto) 3.7 % (0.0-3.0) H Basophils (%) (Auto) 0.6 % (0.0-2.0) Sodium Level 141 MMOL/L (136-145) Potassium Level 4.4 MMOL/L (3.5-5.1) Chloride Level 106 MMOL/L (98-107) Carbon Dioxide Level 25 MMOL/L (21-32) Anion Gap 10 mmol/L (5-15) Blood Urea Nitrogen 70 mg/dL (7-18) H Creatinine 3.3 MG/DL (0.55-1.30) H Estimat Glomerular Filtration Rate 17.6 mL/min (>60) Glucose Level 121 MG/DL (74-106) H Calcium Level 8.5 MG/DL (8.5-10.1) Height (Feet): 5 Height (Inches): 2.00 Weight (Pounds): 163 General Appearance: WD/WN, no apparent distress, alert Cardiovascular: normal rate Respiratory/Chest: normal breath sounds, no respiratory distress Abdominal Exam: normal bowel sounds, non tender, soft Extremities: normal range of motion, non-tender Lance Sosa NP Jul 19, 2018 11:10
--- NOTE | 2018-07-19 11:51 | Pulmonology Progress Note ---
Assessment/Plan Problems: (1) Moderate pulmonary arterial systolic hypertension (2) Acute respiratory failure (3) Solitary kidney (4) Diabetic nephropathy (5) Cardiomegaly (6) Hypertension (7) Anemia (8) Diabetic neuropathy (9) Diabetes mellitus Assessment/Plan doubt acute pneumonia CT of chest to evaluate RLL infiltrate, ( can't do with contrast b/o renal insufficiency) respiratory status stable sinus rhythm echo showed normal EF but increased pulmonary artery pressure US of kidneys showed only one kidney anemia seems to be chronic med/surg Subjective ROS Limited/Unobtainable: No Constitutional: Reports: no symptoms HEENT: Repors: no symptoms Allergies: Coded Allergies: LISINOPRIL (Verified Allergy, Unknown, 07/16/18) LOSARTAN (Verified Allergy, Unknown, 07/16/18) Objective Last 24 Hour Vital Signs Date Time Temp Pulse Resp B/P (MAP) Pulse Ox O2 Delivery O2 Flow Rate FiO2 07/19/18 09:08 97.5 07/19/18 09:00 Room Air Room Air 07/19/18 08:38 63 131/63 07/19/18 08:38 63 131/63 07/19/18 08:10 98 Room Air 21 07/19/18 08:10 79 18 Room Air 21 07/19/18 08:10 Room Air 21 07/19/18 08:00 97.5 63 19 131/63 (85) 98 07/19/18 05:40 146/86 07/19/18 04:00 97.5 62 19 146/86 (106) 99 07/19/18 04:00 62 07/19/18 02:11 86 20 Nasal Cannula 2.0 28 07/19/18 02:11 Nasal Cannula 2.0 28 07/19/18 02:07 98 Nasal Cannula 2.0 28 07/19/18 00:00 73 07/19/18 00:00 97.9 69 17 137/59 (85) 94 07/18/18 21:45 67 143/63 07/18/18 21:44 143/63 07/18/18 21:00 Room Air 07/18/18 20:00 97.9 67 18 143/63 (89) 96 07/18/18 20:00 71 07/18/18 16:10 97.9 71 18 156/64 (94) 95 07/18/18 16:00 67 07/18/18 13:08 178/77 07/18/18 12:00 97.2 72 18 178 (110) 93 07/18/18 12:00 69 Intake and Output 07/18/18 07/19/18 19:00 07:00 Intake Total 400 ml Output Total 300 ml Balance 100 ml Intake Oral 400 ml Output Urine Total 300 ml # Bowel Movements 1 General Appearance: WD/WN HEENT: normocephalic, atraumatic Respiratory/Chest: chest wall non-tender, lungs clear Breasts: no masses Cardiovascular: normal peripheral pulses, regularly irregular Abdomen: normal bowel sounds, soft, non tender, no organomegaly Laboratory Tests 07/18/18 22:22: Stool Occult Blood Negative 07/19/18 08:20: White Blood Count 5.9, Red Blood Count 2.68L, Hemoglobin 8.5L, Hematocrit 26.5L , Mean Corpuscular Volume 99, Mean Corpuscular Hemoglobin 31.7H, Mean Corpuscular Hemoglobin Concent 32.1, Red Cell Distribution Width 13.3, Platelet Count 200, Mean Platelet Volume 8.2, Neutrophils (%) (Auto) 70.6, Lymphocytes (% ) (Auto) 17.7L, Monocytes (%) (Auto) 7.4, Eosinophils (%) (Auto) 3.7H, Basophils (%) (Auto) 0.6, Sodium Level 141, Potassium Level 4.4, Chloride Level 106, Carbon Dioxide Level 25, Anion Gap 10, Blood Urea Nitrogen 70H, Creatinine 3.3H, Estimat Glomerular Filtration Rate 17.6, Glucose Level 121H, Calcium Level 8.5 Current Medications Medications (Trade) Dose Ordered Sig/Zara Route PRN Reason Start Time Stop Time Status Last Admin Dose Admin Acetaminophen (Tylenol) 650 mg Q4H PRN ORAL T>100.5 07/15/18 15:30 08/14/18 15:29 Al Hydroxide/Mg Hydroxide (Mylanta II) 30 ml Q6H PRN ORAL dyspepsia 07/15/18 15:30 08/14/18 15:29 Albuterol/ Ipratropium (Albuterol/ Ipratropium) 3 ml Q4H PRN HHN Shortness of Breath 07/17/18 09:30 07/22/18 09:29 12/11/18 09:28 Amlodipine Besylate (Norvasc) 10 mg DAILY ORAL 07/16/18 09:00 08/15/18 08:59 07/19/18 08:38 Aspirin (ASA) 81 mg DAILY ORAL 07/16/18 09:00 08/15/18 08:59 07/19/18 08:38 Atorvastatin Calcium (Lipitor) 80 mg BEDTIME ORAL 07/16/18 21:00 08/15/18 20:59 07/18/18 21:44 Carvedilol (Coreg) 37.5 mg EVERY 12 HOURS ORAL 07/16/18 09:00 08/15/18 08:59 07/19/18 08:38 Clonidine HCl (Catapres Tab) 0.1 mg Q6H PRN ORAL SBP > 160mmHg 07/15/18 21:30 08/14/18 21:29 07/15/18 21:44 Dextrose (Dextrose 50%) 25 ml Q30M PRN IV Hypoglycemia 07/15/18 15:30 08/14/18 15:26 Dextrose (Dextrose 50%) 50 ml Q30M PRN IV hypoglycemia 07/15/18 15:30 08/14/18 15:29 Epoetin Yordan (Procrit (for non ESRD use)) 4,000 units 2XW@2100 SUBQ 07/17/18 21:00 08/16/18 20:59 07/17/18 21:10 Gabapentin (Neurontin) 800 mg THREE TIMES A DAY ORAL 07/15/18 20:00 08/14/18 19:59 07/19/18 08:38 Guaifenesin (Robitussin) 100 mg Q4H PRN ORAL For Cough 07/17/18 09:30 08/16/18 09:29 Hydralazine HCl (Apresoline) 100 mg Q8HR ORAL 07/16/18 14:00 08/15/18 13:59 07/19/18 05:40 Insulin Aspart (NovoLOG) BEFORE MEALS AND HS SUBQ 07/15/18 22:30 08/14/18 22:29 07/19/18 11:30 Iron Sucrose 100 mg/Sodium Chloride 60 ml @ 240 mls/hr BEDTIME IV 07/17/18 21:00 07/21/18 21:00 07/18/18 21:44 Levofloxacin (Levaquin) 500 mg Q48H ORAL 07/19/18 17:00 07/26/18 16:59 Lorazepam (Ativan 2mg/ml 1ml) 0.5 mg Q4H PRN IV For Anxiety 07/15/18 15:30 07/22/18 15:29 Mirtazapine (Remeron) 7.5 mg BEDTIME ORAL 07/15/18 22:00 08/15/18 20:59 07/18/18 21:44 Morphine Sulfate (Morphine Sulfate) 2 mg Q4H PRN IVP Breakthrough Pain 07/17/18 09:38 07/24/18 09:37 07/19/18 05:41 Ondansetron HCl (Zofran) 4 mg Q6H PRN IVP Nausea & Vomiting 07/15/18 15:30 08/14/18 15:29 Oxycodone HCl (Roxicodone) 5 mg Q4H PRN ORAL Moderate Pain (Pain Scale 4-6) 07/15/18 22:00 07/22/18 21:59 07/19/18 00:40 Oxycodone/ Acetaminophen (Percocet 10/325) 1 tab Q4H PRN ORAL Severe Pain (Pain Scale 7-10) 07/15/18 21:30 07/22/18 21:29 07/19/18 08:38 Polyethylene Glycol (Miralax) 17 gm HSPRN PRN ORAL Constipation 07/15/18 21:00 08/14/18 20:59 Zolpidem Tartrate (Ambien) 5 mg HSPRN PRN ORAL Insomnia 07/15/18 21:00 07/22/18 20:59 07/16/18 23:27 Hakeem Godinez MD Jul 19, 2018 11:51
--- NOTE | 2018-07-19 12:43 | General Progress Note ---
Assessment/Plan Problem List: (1) SOB (shortness of breath) ICD Codes: R06.02 - Shortness of breath SNOMED: 613544954 (2) CHF (congestive heart failure) ICD Codes: I50.9 - Heart failure, unspecified SNOMED: 78412692 (3) Renal failure ICD Codes: N19 - Unspecified kidney failure SNOMED: 72113258 (4) Asthma ICD Codes: J45.909 - Unspecified asthma, uncomplicated SNOMED: 944821378 (5) Hypertension ICD Codes: I10 - Essential (primary) hypertension SNOMED: 87102681 (6) Diabetic neuropathy ICD Codes: E11.40 - Type 2 diabetes mellitus with diabetic neuropathy, unspecified SNOMED: 64866541, 275988915, 703660306 (7) Diabetes mellitus ICD Codes: E11.9 - Type 2 diabetes mellitus without complications SNOMED: 45097487 (8) Anemia ICD Codes: D64.9 - Anemia, unspecified SNOMED: 840225213 Status: stable, progressing Assessment/Plan o2 pulm tx diurese bp bs control cbc bmp am dc plan snf Subjective Constitutional: Reports: weakness Respiratory: Reports: shortness of breath Allergies: Coded Allergies: LISINOPRIL (Verified Allergy, Unknown, 07/16/18) LOSARTAN (Verified Allergy, Unknown, 07/16/18) All Systems: reviewed and negative except above Subjective o2nc calm Objective Last 24 Hour Vital Signs Date Time Temp Pulse Resp B/P (MAP) Pulse Ox O2 Delivery O2 Flow Rate FiO2 07/19/18 09:08 97.5 07/19/18 09:00 Room Air Room Air 07/19/18 08:38 63 131/63 07/19/18 08:38 63 131/63 07/19/18 08:10 98 Room Air 21 07/19/18 08:10 79 18 Room Air 21 07/19/18 08:10 Room Air 21 07/19/18 08:00 97.5 63 19 131/63 (85) 98 07/19/18 05:40 146/86 07/19/18 04:00 97.5 62 19 146/86 (106) 99 07/19/18 04:00 62 07/19/18 02:11 86 20 Nasal Cannula 2.0 28 07/19/18 02:11 Nasal Cannula 2.0 28 07/19/18 02:07 98 Nasal Cannula 2.0 28 07/19/18 00:00 73 07/19/18 00:00 97.9 69 17 137/59 (85) 94 07/18/18 21:45 67 143/63 07/18/18 21:44 143/63 07/18/18 21:00 Room Air 07/18/18 20:00 97.9 67 18 143/63 (89) 96 07/18/18 20:00 71 07/18/18 16:10 97.9 71 18 156/64 (94) 95 07/18/18 16:00 67 07/18/18 13:08 178/77 Intake and Output 07/18/18 07/19/18 19:00 07:00 Intake Total 400 ml Output Total 300 ml Balance 100 ml Intake Oral 400 ml Output Urine Total 300 ml # Bowel Movements 1 Laboratory Tests 07/18/18 22:22: Stool Occult Blood Negative 07/19/18 08:20: White Blood Count 5.9, Red Blood Count 2.68L, Hemoglobin 8.5L, Hematocrit 26.5L , Mean Corpuscular Volume 99, Mean Corpuscular Hemoglobin 31.7H, Mean Corpuscular Hemoglobin Concent 32.1, Red Cell Distribution Width 13.3, Platelet Count 200, Mean Platelet Volume 8.2, Neutrophils (%) (Auto) 70.6, Lymphocytes (% ) (Auto) 17.7L, Monocytes (%) (Auto) 7.4, Eosinophils (%) (Auto) 3.7H, Basophils (%) (Auto) 0.6, Sodium Level 141, Potassium Level 4.4, Chloride Level 106, Carbon Dioxide Level 25, Anion Gap 10, Blood Urea Nitrogen 70H, Creatinine 3.3H, Estimat Glomerular Filtration Rate 17.6, Glucose Level 121H, Calcium Level 8.5 Height (Feet): 5 Height (Inches): 2.00 Weight (Pounds): 163 General Appearance: lethargic EENT: normal ENT inspection Neck: normal alignment Cardiovascular: normal peripheral pulses, normal rate, regular rhythm Respiratory/Chest: chest wall non-tender, decreased breath sounds Abdomen: normal bowel sounds, non tender, soft Extremities: normal inspection Edema: no edema noted Arm (L), no edema noted Arm (R), no edema noted Leg (L), no edema noted Leg (R), no edema noted Pedal (L), no edema noted Pedal (R), no edema noted Generalized Neurologic: responsive, motor weakness Skin: normal pigmentation, warm/dry Naun Geiger DO Jul 19, 2018 12:42
--- NOTE | 2018-07-19 16:23 | Diagnostic Imaging Report ---
Clinical Indication: Chest pain Technique: Spiral acquisitions obtained through the chest. No IV contrast utilized, for referring physician request. Multiplanar reconstructions generated. Total dose length product 596.93 mGycm. CTDIvol(s) 17.31 mGy. Dose reduction achieved using automated exposure control Comparison: none Findings: There are bilateral pleural effusions, moderate on the right, [id number] on the left. There is slight indistinctness to the interstitial markings and interstitial septal thickening. There is fairly diffuse subtle hazy groundglass opacity involving both lungs diffusely, as well as more patchy areas of slightly increased parenchymal density greater than the surrounding background. No definite dense consolidation is demonstrated. There is some atelectatic change at the left lung base. The heart is enlarged. There is slight pericardial thickening. There is mediastinal lymphadenopathy, with enlarged precarinal nodes measuring up to 22 mm long axis dimension, aortopulmonary window nodes measuring up to 29 mm long axis dimension, right paratracheal nodes measuring up to 31 mm long axis dimension. There may also be bilateral hilar lymphadenopathy, although this is difficult to assess in the absence of IV contrast administration. There are multiple coronary artery stents. There are prominent although not frankly enlarged bilateral axillary lymph nodes, left greater than right. The left axillary nodes do demonstrate loss of normal architecture. Included portions of the thyroid are unremarkable. The bones are unremarkable. Included upper abdominal anatomy is remarkable for the presence of splenomegaly, spleen measuring 13.5 cm long axis dimension. There is also hepatomegaly. The gallbladder wall is equivocally slightly edematous. Impression: Marked cardiomegaly Bilateral pleural effusions Pulmonary interstitial septal thickening, diffuse faint groundglass opacity, scattered slightly denser parenchymal opacities bilaterally. Findings most likely represent pulmonary edema. However, inflammatory etiologies are also possible Mediastinal, possible bilateral hilar, possible left axillary lymphadenopathy. This is nonspecific, could indicate inflammatory process, lymphoproliferative disorder, metastatic lymphadenopathy among other possibilities Splenomegaly. Suspect related to the above Hepatomegaly Equivocal slight gallbladder wall edema. If real, likely related to hemodynamic abnormalities causing the pulmonary changes and pleural fluid. Cholecystitis, either acalculous or related to an occult calculus, not completely excludable, however. Evidence of prior coronary artery stenting The CT scanner at [facility] is accredited by the [employer] and the scans are performed using protocols designed to limit radiation exposure to as low as reasonably achievable to attain images of sufficient resolution adequate for diagnostic evaluation.
[2018-07-19] MEDS ORDERED: Levofloxacin 500mg tab ORAL SCH (17:00)
--- NOTE | 2018-07-19 17:18 | Infectious Diseases Prog Note ---
Assessment/Plan Assessment/Plan Abx: Unasyn x1 07/15 Levaquin 07/16- Assessment: Probable PNA -CXR: Reduced lung volumes with bibasilar infiltrates. -influenza sc neg Afebrile No leukocytosis Pyuria, mild -u/a wbc 5-10,nit neg leuk +1,. many sq cells Acute CHF exacerbation MICHELLE asthma HTN DM CVA w/ L side weakness NH resident Plan: -Continue Levaquin #4/5 for probable PNA -f/u cx -Monitor CBC/C MP, temperatures -Aspiration precautions -Cards, Renal f/u Thank you for this consultation. Will continue to follow along with you. Discussed with RN. Subjective Allergies: Coded Allergies: LISINOPRIL (Verified Allergy, Unknown, 07/16/18) LOSARTAN (Verified Allergy, Unknown, 07/16/18) Subjective afebrile at RA Objective Vital Signs Last 24 Hour Vital Signs Date Time Temp Pulse Resp B/P (MAP) Pulse Ox O2 Delivery O2 Flow Rate FiO2 07/19/18 14:35 132/54 07/19/18 13:15 98.1 84 18 132/54 (80) 96 07/19/18 12:00 97.5 67 20 135/63 (87) 99 07/19/18 09:08 97.5 07/19/18 09:00 Room Air Room Air 07/19/18 08:38 63 131/63 07/19/18 08:38 63 131/63 07/19/18 08:10 98 Room Air 21 07/19/18 08:10 79 18 Room Air 21 07/19/18 08:10 Room Air 21 07/19/18 08:00 97.5 63 19 131/63 (85) 98 07/19/18 05:40 146/86 07/19/18 04:00 97.5 62 19 146/86 (106) 99 07/19/18 04:00 62 07/19/18 02:11 86 20 Nasal Cannula 2.0 28 07/19/18 02:11 Nasal Cannula 2.0 28 07/19/18 02:07 98 Nasal Cannula 2.0 28 07/19/18 00:00 73 07/19/18 00:00 97.9 69 17 137/59 (85) 94 07/18/18 21:45 67 143/63 12/11/18 21:44 143/63 07/18/18 21:00 Room Air 07/18/18 20:00 97.9 67 18 143/63 (89) 96 07/18/18 20:00 71 Height (Feet): 5 Height (Inches): 2.00 Weight (Pounds): 163 Objective GENERAL: Calm in bed, oriented x3, slightly distress secondary to short of breath. CARDIOVASCULAR: No murmur. LUNGS: Poor exchange. ABDOMEN: Bowel sounds distant. EXTREMITIES: No cyanosis, clubbing, or edema. NEUROLOGIC: The patient moves all extremities, slightly weak. Laboratory Tests Test 07/18/18 22:22 07/19/18 08:20 Stool Occult Blood Negative (NEGATIVE) White Blood Count 5.9 K/UL (4.8-10.8) Red Blood Count 2.68 M/UL (4.20-5.40) L Hemoglobin 8.5 G/DL (12.0-16.0) L Hematocrit 26.5 % (37.0-47.0) L Mean Corpuscular Volume 99 FL (80-99) Mean Corpuscular Hemoglobin 31.7 PG (27.0-31.0) H Mean Corpuscular Hemoglobin Concent 32.1 G/DL (32.0-36.0) Red Cell Distribution Width 13.3 % (11.6-14.8) Platelet Count 200 K/UL (150-450) Mean Platelet Volume 8.2 FL (6.5-10.1) Neutrophils (%) (Auto) 70.6 % (45.0-75.0) Lymphocytes (%) (Auto) 17.7 % (20.0-45.0) L Monocytes (%) (Auto) 7.4 % (1.0-10.0) Eosinophils (%) (Auto) 3.7 % (0.0-3.0) H Basophils (%) (Auto) 0.6 % (0.0-2.0) Sodium Level 141 MMOL/L (136-145) Potassium Level 4.4 MMOL/L (3.5-5.1) Chloride Level 106 MMOL/L (98-107) Carbon Dioxide Level 25 MMOL/L (21-32) Anion Gap 10 mmol/L (5-15) Blood Urea Nitrogen 70 mg/dL (7-18) H Creatinine 3.3 MG/DL (0.55-1.30) H Estimat Glomerular Filtration Rate 17.6 mL/min (>60) Glucose Level 121 MG/DL (74-106) H Calcium Level 8.5 MG/DL (8.5-10.1) Current Medications Medications (Trade) Dose Ordered Sig/Zara Route PRN Reason Start Time Stop Time Status Last Admin Dose Admin Acetaminophen (Tylenol) 650 mg Q4H PRN ORAL T>100.5 07/15/18 15:30 08/14/18 15:29 Al Hydroxide/Mg Hydroxide (Mylanta II) 30 ml Q6H PRN ORAL dyspepsia 07/15/18 15:30 08/14/18 15:29 Albuterol/ Ipratropium (Albuterol/ Ipratropium) 3 ml Q4H PRN HHN Shortness of Breath 07/17/18 09:30 07/22/18 09:29 07/18/18 09:28 Amlodipine Besylate (Norvasc) 10 mg DAILY ORAL 07/16/18 09:00 08/15/18 08:59 07/19/18 08:38 Aspirin (ASA) 81 mg DAILY ORAL 07/16/18 09:00 08/15/18 08:59 07/19/18 08:38 Atorvastatin Calcium (Lipitor) 80 mg BEDTIME ORAL 07/16/18 21:00 08/15/18 20:59 07/18/18 21:44 Carvedilol (Coreg) 37.5 mg EVERY 12 HOURS ORAL 07/16/18 09:00 08/15/18 08:59 07/19/18 08:38 Clonidine HCl (Catapres Tab) 0.1 mg Q6H PRN ORAL SBP > 160mmHg 07/15/18 21:30 08/14/18 21:29 07/15/18 21:44 Dextrose (Dextrose 50%) 25 ml Q30M PRN IV Hypoglycemia 07/15/18 15:30 08/14/18 15:26 Dextrose (Dextrose 50%) 50 ml Q30M PRN IV hypoglycemia 07/15/18 15:30 08/14/18 15:29 Epoetin Yordan (Procrit (for non ESRD use)) 4,000 units 2XW@2100 SUBQ 07/17/18 21:00 08/16/18 20:59 07/17/18 21:10 Gabapentin (Neurontin) 800 mg THREE TIMES A DAY ORAL 07/15/18 20:00 08/14/18 19:59 07/19/18 12:41 Guaifenesin (Robitussin) 100 mg Q4H PRN ORAL For Cough 07/17/18 09:30 08/16/18 09:29 Hydralazine HCl (Apresoline) 100 mg Q8HR ORAL 07/16/18 14:00 08/15/18 13:59 07/19/18 14:35 Insulin Aspart (NovoLOG) BEFORE MEALS AND HS SUBQ 07/15/18 22:30 08/14/18 22:29 07/19/18 11:30 Iron Sucrose 100 mg/Sodium Chloride 60 ml @ 240 mls/hr BEDTIME IV 07/17/18 21:00 07/21/18 21:00 07/18/18 21:44 Levofloxacin (Levaquin) 500 mg Q48H ORAL 07/19/18 17:00 07/26/18 16:59 Lorazepam (Ativan 2mg/ml 1ml) 0.5 mg Q4H PRN IV For Anxiety 07/15/18 15:30 07/22/18 15:29 Mirtazapine (Remeron) 7.5 mg BEDTIME ORAL 07/15/18 22:00 08/15/18 20:59 07/18/18 21:44 Morphine Sulfate (Morphine Sulfate) 2 mg Q4H PRN IVP Breakthrough Pain 07/17/18 09:38 07/24/18 09:37 07/19/18 12:41 Ondansetron HCl (Zofran) 4 mg Q6H PRN IVP Nausea & Vomiting 07/15/18 15:30 08/14/18 15:29 Oxycodone HCl (Roxicodone) 5 mg Q4H PRN ORAL Moderate Pain (Pain Scale 4-6) 07/15/18 22:00 07/22/18 21:59 07/19/18 00:40 Oxycodone/ Acetaminophen (Percocet 10/325) 1 tab Q4H PRN ORAL Severe Pain (Pain Scale 7-10) 07/15/18 21:30 07/22/18 21:29 07/19/18 08:38 Polyethylene Glycol (Miralax) 17 gm HSPRN PRN ORAL Constipation 07/15/18 21:00 08/14/18 20:59 Zolpidem Tartrate (Ambien) 5 mg HSPRN PRN ORAL Insomnia 07/15/18 21:00 07/22/18 20:59 07/16/18 23:27 Juliane Mcodnald M.D. Jul 19, 2018 17:18
[2018-07-19] MEDS: Atorvastatin 80mg tab ORAL SCH (20:52)
[2018-07-19] MEDS: Iron Sucrose 100 MG in NS 55 ML IV SCH (20:53)
--- NOTE | 2018-07-19 20:54 | Nephrology Progress Note ---
Assessment/Plan Assessment 1. Acute versus chronic renal failure in setting of solitary kidney 2. Chronic kidney disease, most likely due to diabetic nephropathy since the patient has some degree of diabetic neuropathy. 3. History of congestive heart failure, but at this point the patient seems to be euvolemic. 4. Severe anemia or anemia of chronic kidney disease. 5. 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 6. Uncontrolled hypertension. Plan hold lasix monitoring renal function avoid NSAID replace electrolyte replace electrolyte as need it Subjective Constitutional: Reports: no symptoms HEENT: Reports: no symptoms Neurologic/Psychiatric: Reports: no symptoms Subjective alert awake no acute events Objective Objective Last 24 Hour Vital Signs Date Time Temp Pulse Resp B/P (MAP) Pulse Ox O2 Delivery O2 Flow Rate FiO2 07/19/18 19:52 Room Air 21 07/19/18 19:52 69 18 Room Air 21 07/19/18 19:52 98 Room Air 21 07/19/18 16:00 98.1 61 18 118/62 (80) 94 07/19/18 14:35 132/54 07/19/18 13:15 98.1 84 18 132/54 (80) 96 07/19/18 12:00 97.5 67 20 135/63 (87) 99 07/19/18 09:08 97.5 07/19/18 09:00 Room Air Room Air 07/19/18 08:38 63 131/63 07/19/18 08:38 63 131/63 07/19/18 08:10 98 Room Air 21 07/19/18 08:10 79 18 Room Air 21 07/19/18 08:10 Room Air 21 07/19/18 08:00 97.5 63 19 131/63 (85) 98 07/19/18 05:40 146/86 07/19/18 04:00 97.5 62 19 146/86 (106) 99 07/19/18 04:00 62 07/19/18 02:11 86 20 Nasal Cannula 2.0 28 07/19/18 02:11 Nasal Cannula 2.0 28 07/19/18 02:07 98 Nasal Cannula 2.0 28 07/19/18 00:00 73 07/19/18 00:00 97.9 69 17 137/59 (85) 94 07/18/18 21:45 67 143/63 07/18/18 21:44 143/63 07/18/18 21:00 Room Air Intake and Output 07/18/18 07/19/18 19:00 07:00 Intake Total 400 ml Output Total 300 ml Balance 100 ml Intake Oral 400 ml Output Urine Total 300 ml # Bowel Movements 1 Laboratory Tests 07/18/18 22:22: Stool Occult Blood Negative 07/19/18 08:20: White Blood Count 5.9, Red Blood Count 2.68L, Hemoglobin 8.5L, Hematocrit 26.5L , Mean Corpuscular Volume 99, Mean Corpuscular Hemoglobin 31.7H, Mean Corpuscular Hemoglobin Concent 32.1, Red Cell Distribution Width 13.3, Platelet Count 200, Mean Platelet Volume 8.2, Neutrophils (%) (Auto) 70.6, Lymphocytes (% ) (Auto) 17.7L, Monocytes (%) (Auto) 7.4, Eosinophils (%) (Auto) 3.7H, Basophils (%) (Auto) 0.6, Sodium Level 141, Potassium Level 4.4, Chloride Level 106, Carbon Dioxide Level 25, Anion Gap 10, Blood Urea Nitrogen 70H, Creatinine 3.3H, Estimat Glomerular Filtration Rate 17.6, Glucose Level 121H, Calcium Level 8.5 Height (Feet): 5 Height (Inches): 2.00 Weight (Pounds): 163 Objective HEAD AND NECK: No JVP. No LAD. No thyromegaly. Extraocular movements intact. Pupils are reactive to light and accommodation. LUNGS: Decreased breathing sounds on both sides. CARDIAC: Regular rate and rhythm. S1-S2. No murmur. No rub. ABDOMEN: Soft, nontender, and nondistended. EXTREMITIES: 1+ edema. No clubbing. No cyanosis. Nabila Park MD Jul 19, 2018 20:54
[2018-07-20] VITALS: BP 138/71
[2018-07-20 04:00] VITALS: BP 130/68
[2018-07-20] MEDS: HydrALAZINE 50mg tab ORAL SCH ×3 (05:51→21:30)
[2018-07-20] MEDS: NovoLOG Insulin Flexpen SUBQ SCH ×4 (05:54→20:54)
[2018-07-20] MEDS: Morphine Sulfate 2mg/ml Inj IVP PRN ×4 (06:35→21:31)
--- NOTE | 2018-07-20 06:51 | General Progress Note ---
Assessment/Plan Assessment/Plan #. Anemia of chronic disease -- patient with ongoing kidney damage, cr is worse now --> anemia panel has been reviewed. Ferritin at 214, TIBC at 214 --> nephrology is following, appreciate recs --> continue on epogen --> transfuse if hgb is <7 --> hemolysis w/u has been reviewed and none noted --> trend hgb 7.7-->8.5-->8.5 #. Coagulopathy with elevated inr on admission --> likely malnutrition related, now inr better --> trend is any bleeding diathesis is noted # Acute versus chronic renal failure on ckd. As per renal etiology of acute renal failure is cardiorenal syndrome, prerenal azotemia versus unstable --> bp to improve on current meds --> appreciate renal recs #. History of congestive heart failure, but at this point the patient seems to be euvolemic. --> per cardiology #. 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 #. Uncontrolled hypertension. --> now better Greatly appreciate consultation Subjective Constitutional: Denies: no symptoms, chills, diaphoresis, fever, malaise, weakness, other HEENT: Denies: no symptoms, eye pain, blurred vision, tearing, double vision, ear pain, ear discharge, nose pain, nose congestion, throat pain, throat swelling, mouth pain, mouth swelling, other Cardiovascular: Denies: no symptoms, chest pain, edema, irregular heart rate, lightheadedness, palpitations, syncope, other Respiratory: Denies: no symptoms, cough, orthopnea, shortness of breath, SOB with excertion, SOB at rest, sputum, stridor, wheezing, other Gastrointestinal/Abdominal: Denies: no symptoms, abdomen distended, abdominal pain, black stools, tarry stools, blood in stool, constipated, diarrhea, difficulty swallowing, nausea, poor appetite, poor fluid intake, rectal bleeding , vomiting, other Genitourinary: Denies: no symptoms, burning, discharge, frequency, flank pain, hematuria, incontinence, pain, urgency, other Endocrine: Denies: no symptoms, excessive sweating, flushing, intolerance to cold, intolerance to heat, increased hunger, increased thirst, increased urine, unexplained weight gain, unexplained weight loss, other Hematologic/Lymphatic: Denies: no symptoms, anemia, easy bleeding, easy bruising, other Allergies: Coded Allergies: LISINOPRIL (Verified Allergy, Unknown, 07/16/18) LOSARTAN (Verified Allergy, Unknown, 07/16/18) Subjective Pt awake and alert. Pt refusing most meds. H/H stable. Renal is following, repleting electrolytes Objective Last 24 Hour Vital Signs Date Time Temp Pulse Resp B/P (MAP) Pulse Ox O2 Delivery O2 Flow Rate FiO2 07/20/18 05:51 130/68 07/20/18 04:00 97.7 61 19 130/68 (88) 95 07/20/18 00:00 99.0 66 18 138/71 (93) 95 07/19/18 23:46 138/71 07/19/18 21:00 Room Air Room Air 07/19/18 20:51 70 145/63 07/19/18 20:00 98.0 70 18 145/63 (90) 95 07/19/18 19:52 Room Air 21 07/19/18 19:52 69 18 Room Air 21 07/19/18 19:52 98 Room Air 21 07/19/18 16:00 98.1 61 18 118/62 (80) 94 07/19/18 14:35 132/54 07/19/18 13:15 98.1 84 18 132/54 (80) 96 07/19/18 12:00 97.5 67 20 135/63 (87) 99 07/19/18 09:08 97.5 07/19/18 09:00 Room Air Room Air 07/19/18 08:38 63 131/63 07/19/18 08:38 63 131/63 07/19/18 08:10 98 Room Air 21 07/19/18 08:10 79 18 Room Air 21 07/19/18 08:10 Room Air 21 07/19/18 08:00 97.5 63 19 131/63 (85) 98 Intake and Output 07/19/18 07/20/18 18:59 06:59 Intake Total 300 ml Balance 300 ml Intake Oral 300 ml # Voids 3 3 # Bowel Movements 2 Laboratory Tests 07/19/18 08:20: White Blood Count 5.9, Red Blood Count 2.68L, Hemoglobin 8.5L, Hematocrit 26.5L , Mean Corpuscular Volume 99, Mean Corpuscular Hemoglobin 31.7H, Mean Corpuscular Hemoglobin Concent 32.1, Red Cell Distribution Width 13.3, Platelet Count 200, Mean Platelet Volume 8.2, Neutrophils (%) (Auto) 70.6, Lymphocytes (% ) (Auto) 17.7L, Monocytes (%) (Auto) 7.4, Eosinophils (%) (Auto) 3.7H, Basophils (%) (Auto) 0.6, Sodium Level 141, Potassium Level 4.4, Chloride Level 106, Carbon Dioxide Level 25, Anion Gap 10, Blood Urea Nitrogen 70H, Creatinine 3.3H, Estimat Glomerular Filtration Rate 17.6, Glucose Level 121H, Calcium Level 8.5 Height (Feet): 5 Height (Inches): 2.00 Weight (Pounds): 164 Objective VITAL SIGNS: have been reviewed HEAD AND NECK: No JVP. No LAD. No thyromegaly. Extraocular movements intact. Pupils are reactive to light and accommodation. LUNGS: Decreased breathing sounds on both sides. CARDIAC: Regular rate and rhythm. S1-S2. No murmur. No rub. ABDOMEN: Soft, nontender, and nondistended. EXTREMITIES: 1+ edema. No clubbing. No cyanosis. Amandeep Howell MD Jul 20, 2018 06:51
[2018-07-20 07:32] LABS: ANION GAP 9 mmol/L (5-15); BLOOD UREA NITROGEN 75 mg/dL (7-18); CALCIUM 8.2 MG/DL (8.5-10.1); CARBON DIOXIDE 23 MMOL/L (21-32); CHLORIDE 109 MMOL/L (98-107); CREATININE 3.4 MG/DL (0.55-1.30); POTASSIUM 4.4 MMOL/L (3.5-5.1); SODIUM 141 MMOL/L (136-145)
[2018-07-20 07:37] LABS: MEAN CORPUSCULAR VOLUME 101 FL (80-99); PLATELET COUNT 188 K/UL (150-450); RED BLOOD COUNT 2.49 M/UL (4.20-5.40); RED CELL DISTRIBUTION WIDTH 13.2 % (11.6-14.8); WHITE BLOOD COUNT 4.8 K/UL (4.8-10.8)
[2018-07-20 07:39] LABS: NEUTROPHILS % (AUTO) 58.5 % (45.0-75.0)
[2018-07-20 07:40] LABS: BASOPHILS % (AUTO) 0.5 % (0.0-2.0); EOSINOPHILS % (AUTO) 5.3 % (0.0-3.0); LYMPHOCYTES % (AUTO) 28.3 % (20.0-45.0); MONOCYTES % (AUTO) 7.3 % (1.0-10.0)
[2018-07-20] MEDS: Aspirin Baby 81mg ORAL SCH (10:10)
[2018-07-20] MEDS: Carvedilol 12.5mg tab ORAL SCH ×2 (10:10→20:35)
--- NOTE | 2018-07-20 10:15 | Nephrology Progress Note ---
Assessment/Plan Assessment 1. Acute versus chronic renal failure in setting of solitary kidney 2. Chronic kidney disease, most likely due to diabetic nephropathy since the patient has some degree of diabetic neuropathy. 3. History of congestive heart failure, but at this point the patient seems to be euvolemic. 4. Severe anemia or anemia of chronic kidney disease. 5. 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 6. Uncontrolled hypertension. Plan hold lasix monitoring renal function avoid NSAID replace electrolyte replace electrolyte as need it Subjective Subjective alert awake no acute events Objective Objective Last 24 Hour Vital Signs Date Time Temp Pulse Resp B/P (MAP) Pulse Ox O2 Delivery O2 Flow Rate FiO2 07/20/18 10:10 66 139/55 07/20/18 10:10 66 139/55 07/20/18 05:51 130/68 07/20/18 04:00 97.7 61 19 130/68 (88) 95 07/20/18 00:00 99.0 66 18 138/71 (93) 95 07/19/18 23:46 138/71 07/19/18 21:00 Room Air Room Air 07/19/18 20:51 70 145/63 07/19/18 20:00 98.0 70 18 145/63 (90) 95 07/19/18 19:52 Room Air 21 07/19/18 19:52 69 18 Room Air 21 07/19/18 19:52 98 Room Air 21 07/19/18 16:00 98.1 61 18 118/62 (80) 94 07/19/18 14:35 132/54 07/19/18 13:15 98.1 84 18 132/54 (80) 96 07/19/18 12:00 97.5 67 20 135/63 (87) 99 Intake and Output 07/19/18 07/20/18 19:00 07:00 Intake Total 300 ml Balance 300 ml Intake Oral 300 ml # Voids 3 3 # Bowel Movements 2 Laboratory Tests 07/20/18 05:05: White Blood Count 4.8, Red Blood Count 2.49L, Hemoglobin 8.0L, Hematocrit 25.0L , Mean Corpuscular Volume 101H, Mean Corpuscular Hemoglobin 31.9H, Mean Corpuscular Hemoglobin Concent 31.7L, Red Cell Distribution Width 13.2, Platelet Count 188, Mean Platelet Volume 8.1, Neutrophils (%) (Auto) 58.5, Lymphocytes (%) (Auto) 28.3, Monocytes (%) (Auto) 7.3, Eosinophils (%) (Auto) 5.3H, Basophils (%) (Auto) 0.5, Sodium Level 141, Potassium Level 4.4, Chloride Level 109H, Carbon Dioxide Level 23, Anion Gap 9, Blood Urea Nitrogen 75H, Creatinine 3.4H, Estimat Glomerular Filtration Rate 17.0, Glucose Level 136H, Calcium Level 8.2L Height (Feet): 5 Height (Inches): 2.00 Weight (Pounds): 164 Objective HEAD AND NECK: No JVP. No LAD. No thyromegaly. Extraocular movements intact. Pupils are reactive to light and accommodation. LUNGS: Decreased breathing sounds on both sides. CARDIAC: Regular rate and rhythm. S1-S2. No murmur. No rub. ABDOMEN: Soft, nontender, and nondistended. EXTREMITIES: 1+ edema. No clubbing. No cyanosis. Nabila Park MD Jul 20, 2018 10:15
--- NOTE | 2018-07-20 10:35 | GI Progress Note ---
Assessment/Plan Problems: (1) Constipation ICD Codes: K59.00 - Constipation, unspecified SNOMED: 10908187 (2) Abdominal pain ICD Codes: R10.9 - Unspecified abdominal pain SNOMED: 39974783 (3) Anemia ICD Codes: D64.9 - Anemia, unspecified SNOMED: 301052676 Status: stable Status Narrative Discussed with Dr. Yarbrough. Assessment/Plan OB stool negative stable H&H fu pulmonary recs monitor H&H, prn transfusions bowel regime ppi fu labs dc planning outpatient GI procedures The patient was seen and examined at bedside and all new and available data was reviewed in the patients chart. I agree with the above findings, impression and plan. (Patient seen earlier today. Signature stamp does not reflect patient encounter time.). - Marco Antonio Yarbrough MD Subjective Subjective Constipation resolved Denies any epigastric pain Tolerating diet Objective Last 24 Hour Vital Signs Date Time Temp Pulse Resp B/P (MAP) Pulse Ox O2 Delivery O2 Flow Rate FiO2 07/20/18 10:10 66 139/55 07/20/18 10:10 66 139/55 07/20/18 05:51 130/68 07/20/18 04:00 97.7 61 19 130/68 (88) 95 07/20/18 00:00 99.0 66 18 138/71 (93) 95 07/19/18 23:46 138/71 07/19/18 21:00 Room Air Room Air 07/19/18 20:51 70 145/63 07/19/18 20:00 98.0 70 18 145/63 (90) 95 07/19/18 19:52 Room Air 21 07/19/18 19:52 69 18 Room Air 21 07/19/18 19:52 98 Room Air 21 07/19/18 16:00 98.1 61 18 118/62 (80) 94 07/19/18 14:35 132/54 07/19/18 13:15 98.1 84 18 132/54 (80) 96 07/19/18 12:00 97.5 67 20 135/63 (87) 99 Intake and Output 07/19/18 07/20/18 19:00 07:00 Intake Total 300 ml Balance 300 ml Intake Oral 300 ml # Voids 3 3 # Bowel Movements 2 Laboratory Tests Test 12/13/18 05:05 White Blood Count 4.8 K/UL (4.8-10.8) Red Blood Count 2.49 M/UL (4.20-5.40) L Hemoglobin 8.0 G/DL (12.0-16.0) L Hematocrit 25.0 % (37.0-47.0) L Mean Corpuscular Volume 101 FL (80-99) H Mean Corpuscular Hemoglobin 31.9 PG (27.0-31.0) H Mean Corpuscular Hemoglobin Concent 31.7 G/DL (32.0-36.0) L Red Cell Distribution Width 13.2 % (11.6-14.8) Platelet Count 188 K/UL (150-450) Mean Platelet Volume 8.1 FL (6.5-10.1) Neutrophils (%) (Auto) 58.5 % (45.0-75.0) Lymphocytes (%) (Auto) 28.3 % (20.0-45.0) Monocytes (%) (Auto) 7.3 % (1.0-10.0) Eosinophils (%) (Auto) 5.3 % (0.0-3.0) H Basophils (%) (Auto) 0.5 % (0.0-2.0) Sodium Level 141 MMOL/L (136-145) Potassium Level 4.4 MMOL/L (3.5-5.1) Chloride Level 109 MMOL/L (98-107) H Carbon Dioxide Level 23 MMOL/L (21-32) Anion Gap 9 mmol/L (5-15) Blood Urea Nitrogen 75 mg/dL (7-18) H Creatinine 3.4 MG/DL (0.55-1.30) H Estimat Glomerular Filtration Rate 17.0 mL/min (>60) Glucose Level 136 MG/DL (74-106) H Calcium Level 8.2 MG/DL (8.5-10.1) L Height (Feet): 5 Height (Inches): 2.00 Weight (Pounds): 164 General Appearance: WD/WN, no apparent distress, alert Cardiovascular: normal rate Respiratory/Chest: normal breath sounds, no respiratory distress Abdominal Exam: normal bowel sounds, non tender, soft Extremities: normal range of motion, non-tender Lance Sosa NP Jul 20, 2018 10:35
--- NOTE | 2018-07-20 11:11 | Infectious Diseases Prog Note ---
Assessment/Plan Assessment/Plan Abx: Unasyn x1 07/15 Levaquin 07/16- Assessment: Probable PNA -CXR: Reduced lung volumes with bibasilar infiltrates. -influenza sc neg Afebrile No leukocytosis Pyuria, mild -u/a wbc 5-10,nit neg leuk +1,. many sq cells Acute CHF exacerbation MICHELLE asthma HTN DM CVA w/ L side weakness [facility] resident Plan: -Continue Levaquin #5/5 for probable PNA -f/u cx -Monitor CBC/C MP, temperatures -Aspiration precautions -Cards, Renal f/u Thank you for this consultation. Will continue to follow along with you. Discussed with RN. Subjective Allergies: Coded Allergies: LISINOPRIL (Verified Allergy, Unknown, 07/16/18) LOSARTAN (Verified Allergy, Unknown, 07/16/18) Subjective afebrile at RA Objective Vital Signs Last 24 Hour Vital Signs Date Time Temp Pulse Resp B/P (MAP) Pulse Ox O2 Delivery O2 Flow Rate FiO2 07/20/18 10:10 66 139/55 07/20/18 10:10 66 139/55 07/20/18 09:00 Room Air Room Air 07/20/18 05:51 130/68 07/20/18 04:00 97.7 61 19 130/68 (88) 95 07/20/18 00:00 99.0 66 18 138/71 (93) 95 07/19/18 23:46 138/71 07/19/18 21:00 Room Air Room Air 07/19/18 20:51 70 145/63 07/19/18 20:00 98.0 70 18 145/63 (90) 95 07/19/18 19:52 Room Air 21 07/19/18 19:52 69 18 Room Air 21 07/19/18 19:52 98 Room Air 21 07/19/18 16:00 98.1 61 18 118/62 (80) 94 07/19/18 14:35 132/54 07/19/18 13:15 98.1 84 18 132/54 (80) 96 07/19/18 12:00 97.5 67 20 135/63 (87) 99 Height (Feet): 5 Height (Inches): 2.00 Weight (Pounds): 164 Objective GENERAL: Calm in bed, oriented x3, slightly distress secondary to short of breath. CARDIOVASCULAR: No murmur. LUNGS: Poor exchange. ABDOMEN: Bowel sounds distant. EXTREMITIES: No cyanosis, clubbing, or edema. NEUROLOGIC: The patient moves all extremities, slightly weak. Laboratory Tests Test 07/20/18 05:05 White Blood Count 4.8 K/UL (4.8-10.8) Red Blood Count 2.49 M/UL (4.20-5.40) L Hemoglobin 8.0 G/DL (12.0-16.0) L Hematocrit 25.0 % (37.0-47.0) L Mean Corpuscular Volume 101 FL (80-99) H Mean Corpuscular Hemoglobin 31.9 PG (27.0-31.0) H Mean Corpuscular Hemoglobin Concent 31.7 G/DL (32.0-36.0) L Red Cell Distribution Width 13.2 % (11.6-14.8) Platelet Count 188 K/UL (150-450) Mean Platelet Volume 8.1 FL (6.5-10.1) Neutrophils (%) (Auto) 58.5 % (45.0-75.0) Lymphocytes (%) (Auto) 28.3 % (20.0-45.0) Monocytes (%) (Auto) 7.3 % (1.0-10.0) Eosinophils (%) (Auto) 5.3 % (0.0-3.0) H Basophils (%) (Auto) 0.5 % (0.0-2.0) Sodium Level 141 MMOL/L (136-145) Potassium Level 4.4 MMOL/L (3.5-5.1) Chloride Level 109 MMOL/L (98-107) H Carbon Dioxide Level 23 MMOL/L (21-32) Anion Gap 9 mmol/L (5-15) Blood Urea Nitrogen 75 mg/dL (7-18) H Creatinine 3.4 MG/DL (0.55-1.30) H Estimat Glomerular Filtration Rate 17.0 mL/min (>60) Glucose Level 136 MG/DL (74-106) H Calcium Level 8.2 MG/DL (8.5-10.1) L Current Medications Medications (Trade) Dose Ordered Sig/Zara Route PRN Reason Start Time Stop Time Status Last Admin Dose Admin Acetaminophen (Tylenol) 650 mg Q4H PRN ORAL T>100.5 07/15/18 15:30 08/14/18 15:29 Al Hydroxide/Mg Hydroxide (Mylanta II) 30 ml Q6H PRN ORAL dyspepsia 07/15/18 15:30 08/14/18 15:29 Albuterol/ Ipratropium (Albuterol/ Ipratropium) 3 ml Q4H PRN HHN Shortness of Breath 07/17/18 09:30 07/22/18 09:29 07/18/18 09:28 Amlodipine Besylate (Norvasc) 10 mg DAILY ORAL 07/16/18 09:00 08/15/18 08:59 07/20/18 10:10 Aspirin (ASA) 81 mg DAILY ORAL 07/16/18 09:00 08/15/18 08:59 07/20/18 10:10 Atorvastatin Calcium (Lipitor) 80 mg BEDTIME ORAL 07/16/18 21:00 08/15/18 20:59 07/19/18 20:52 Carvedilol (Coreg) 37.5 mg EVERY 12 HOURS ORAL 07/16/18 09:00 08/15/18 08:59 07/20/18 10:10 Clonidine HCl (Catapres Tab) 0.1 mg Q6H PRN ORAL SBP > 160mmHg 07/15/18 21:30 08/14/18 21:29 07/15/18 21:44 Dextrose (Dextrose 50%) 25 ml Q30M PRN IV Hypoglycemia 07/15/18 15:30 08/14/18 15:26 Dextrose (Dextrose 50%) 50 ml Q30M PRN IV hypoglycemia 07/15/18 15:30 08/14/18 15:29 Epoetin Yordan (Procrit (for non ESRD use)) 4,000 units 2XW@2100 SUBQ 07/17/18 21:00 08/16/18 20:59 07/17/18 21:10 Gabapentin (Neurontin) 800 mg THREE TIMES A DAY ORAL 07/15/18 20:00 08/14/18 19:59 07/20/18 10:10 Guaifenesin (Robitussin) 100 mg Q4H PRN ORAL For Cough 07/17/18 09:30 08/16/18 09:29 Hydralazine HCl (Apresoline) 100 mg Q8HR ORAL 07/16/18 14:00 08/15/18 13:59 07/20/18 05:51 Insulin Aspart (NovoLOG) BEFORE MEALS AND HS SUBQ 07/15/18 22:30 08/14/18 22:29 07/20/18 05:54 Iron Sucrose 100 mg/Sodium Chloride 60 ml @ 240 mls/hr BEDTIME IV 07/17/18 21:00 07/21/18 21:00 07/19/18 20:53 Levofloxacin (Levaquin) 500 mg Q48H ORAL 07/19/18 17:00 07/26/18 16:59 07/19/18 18:07 Lorazepam (Ativan 2mg/ml 1ml) 0.5 mg Q4H PRN IV For Anxiety 07/15/18 15:30 07/22/18 15:29 Mirtazapine (Remeron) 7.5 mg BEDTIME ORAL 07/15/18 22:00 08/15/18 20:59 07/19/18 20:51 Morphine Sulfate (Morphine Sulfate) 2 mg Q4H PRN IVP Breakthrough Pain 07/17/18 09:38 07/24/18 09:37 07/20/18 06:35 Ondansetron HCl (Zofran) 4 mg Q6H PRN IVP Nausea & Vomiting 07/15/18 15:30 08/14/18 15:29 Oxycodone HCl (Roxicodone) 5 mg Q4H PRN ORAL Moderate Pain (Pain Scale 4-6) 07/15/18 22:00 07/22/18 21:59 07/19/18 00:40 Oxycodone/ Acetaminophen (Percocet 10/325) 1 tab Q4H PRN ORAL Severe Pain (Pain Scale 7-10) 07/15/18 21:30 07/22/18 21:29 07/20/18 10:20 Polyethylene Glycol (Miralax) 17 gm HSPRN PRN ORAL Constipation 07/15/18 21:00 08/14/18 20:59 Zolpidem Tartrate (Ambien) 5 mg HSPRN PRN ORAL Insomnia 07/15/18 21:00 07/22/18 20:59 07/16/18 23:27 Juliane Mcdonald M.D. Jul 20, 2018 11:11
[2018-07-20 12:45] VITALS: BP 143/66
--- NOTE | 2018-07-20 13:32 | General Progress Note ---
Assessment/Plan Problem List: (1) SOB (shortness of breath) ICD Codes: R06.02 - Shortness of breath SNOMED: 197041871 (2) CHF (congestive heart failure) ICD Codes: I50.9 - Heart failure, unspecified SNOMED: 01277322 (3) Renal failure ICD Codes: N19 - Unspecified kidney failure SNOMED: 22056062 (4) Asthma ICD Codes: J45.909 - Unspecified asthma, uncomplicated SNOMED: 046974407 (5) Hypertension ICD Codes: I10 - Essential (primary) hypertension SNOMED: 03909741 (6) Diabetic neuropathy ICD Codes: E11.40 - Type 2 diabetes mellitus with diabetic neuropathy, unspecified SNOMED: 14350114, 360622535, 330886887 (7) Diabetes mellitus ICD Codes: E11.9 - Type 2 diabetes mellitus without complications SNOMED: 72026822 (8) Anemia ICD Codes: D64.9 - Anemia, unspecified SNOMED: 756111101 Status: unchanged Assessment/Plan o2 pulm tx diurese transfuse prn bp bs control cbc bmp am dc plan w hh Subjective Constitutional: Reports: weakness Allergies: Coded Allergies: LISINOPRIL (Verified Allergy, Unknown, 07/16/18) LOSARTAN (Verified Allergy, Unknown, 07/16/18) All Systems: reviewed and negative except above Subjective o2nc calm Objective Last 24 Hour Vital Signs Date Time Temp Pulse Resp B/P (MAP) Pulse Ox O2 Delivery O2 Flow Rate FiO2 07/20/18 12:45 98.5 18 18 143/66 (91) 95 07/20/18 10:10 66 139/55 07/20/18 10:10 66 139/55 07/20/18 09:00 Room Air Room Air 07/20/18 05:51 130/68 07/20/18 04:00 97.7 61 19 130/68 (88) 95 07/20/18 00:00 99.0 66 18 138/71 (93) 95 07/19/18 23:46 138/71 07/19/18 21:00 Room Air Room Air 07/19/18 20:51 70 145/63 07/19/18 20:00 98.0 70 18 145/63 (90) 95 07/19/18 19:52 Room Air 21 12/12/18 19:52 69 18 Room Air 21 07/19/18 19:52 98 Room Air 21 07/19/18 16:00 98.1 61 18 118/62 (80) 94 07/19/18 14:35 132/54 Intake and Output 07/19/18 07/20/18 19:00 07:00 Intake Total 300 ml Balance 300 ml Intake Oral 300 ml # Voids 3 3 # Bowel Movements 2 Laboratory Tests 07/20/18 05:05: White Blood Count 4.8, Red Blood Count 2.49L, Hemoglobin 8.0L, Hematocrit 25.0L , Mean Corpuscular Volume 101H, Mean Corpuscular Hemoglobin 31.9H, Mean Corpuscular Hemoglobin Concent 31.7L, Red Cell Distribution Width 13.2, Platelet Count 188, Mean Platelet Volume 8.1, Neutrophils (%) (Auto) 58.5, Lymphocytes (%) (Auto) 28.3, Monocytes (%) (Auto) 7.3, Eosinophils (%) (Auto) 5.3H, Basophils (%) (Auto) 0.5, Sodium Level 141, Potassium Level 4.4, Chloride Level 109H, Carbon Dioxide Level 23, Anion Gap 9, Blood Urea Nitrogen 75H, Creatinine 3.4H, Estimat Glomerular Filtration Rate 17.0, Glucose Level 136H, Calcium Level 8.2L Height (Feet): 5 Height (Inches): 2.00 Weight (Pounds): 164 General Appearance: lethargic EENT: normal ENT inspection Neck: normal alignment Cardiovascular: normal peripheral pulses, normal rate, regular rhythm Respiratory/Chest: chest wall non-tender, decreased breath sounds Abdomen: normal bowel sounds, non tender, soft Extremities: normal inspection Edema: no edema noted Arm (L), no edema noted Arm (R), no edema noted Leg (L), no edema noted Leg (R), no edema noted Pedal (L), no edema noted Pedal (R), no edema noted Generalized Neurologic: responsive, motor weakness Skin: normal pigmentation, warm/dry Naun Geiger DO Jul 20, 2018 13:32
[2018-07-20 16:05] VITALS: BP 111/64
[2018-07-20 20:00] VITALS: BP 141/60
[2018-07-20] MEDS: Atorvastatin 80mg tab ORAL SCH (20:34)
[2018-07-20] MEDS: Iron Sucrose 100 MG in NS 55 ML IV SCH (20:36)
[2018-07-20] MEDS: Epogen (for non ESRD use) SUBQ SCH (20:53)
[2018-07-21] VITALS: BP 143/63
[2018-07-21 04:00] VITALS: BP 150/94
[2018-07-21] MEDS: HydrALAZINE 50mg tab ORAL SCH ×3 (05:27→21:53)
[2018-07-21] MEDS: Morphine Sulfate 2mg/ml Inj IVP PRN ×3 (05:44→16:50)
[2018-07-21] MEDS: NovoLOG Insulin Flexpen SUBQ SCH ×4 (05:54→21:42)
[2018-07-21 07:14] LABS: BASOPHILS % (AUTO) 0.5 % (0.0-2.0); EOSINOPHILS % (AUTO) 4.9 % (0.0-3.0); HEMATOCRIT 26.5 % (37.0-47.0); HEMOGLOBIN 8.6 G/DL (12.0-16.0); LYMPHOCYTES % (AUTO) 21.7 % (20.0-45.0); MEAN CORPUSCULAR VOLUME 100 FL (80-99); MONOCYTES % (AUTO) 5.8 % (1.0-10.0); NEUTROPHILS % (AUTO) 67.1 % (45.0-75.0); PLATELET COUNT 205 K/UL (150-450); RED BLOOD COUNT 2.66 M/UL (4.20-5.40); RED CELL DISTRIBUTION WIDTH 13.4 % (11.6-14.8); WHITE BLOOD COUNT 5.7 K/UL (4.8-10.8)
[2018-07-21 07:28] LABS: ANION GAP 10 mmol/L (5-15); BLOOD UREA NITROGEN 77 mg/dL (7-18); CALCIUM 8.6 MG/DL (8.5-10.1); CARBON DIOXIDE 23 MMOL/L (21-32); CHLORIDE 107 MMOL/L (98-107); CREATININE 3.6 MG/DL (0.55-1.30); POTASSIUM 4.5 MMOL/L (3.5-5.1); SODIUM 140 MMOL/L (136-145)
[2018-07-21 08:00] VITALS: BP 140/51
[2018-07-21] MEDS: Aspirin Baby 81mg ORAL SCH (09:19)
[2018-07-21] MEDS: Carvedilol 12.5mg tab ORAL SCH ×2 (09:20→21:39)
--- NOTE | 2018-07-21 11:24 | General Progress Note ---
Assessment/Plan Problem List: (1) SOB (shortness of breath) ICD Codes: R06.02 - Shortness of breath SNOMED: 005077300 (2) CHF (congestive heart failure) ICD Codes: I50.9 - Heart failure, unspecified SNOMED: 02764768 (3) Renal failure ICD Codes: N19 - Unspecified kidney failure SNOMED: 11290638 (4) Asthma ICD Codes: J45.909 - Unspecified asthma, uncomplicated SNOMED: 940258145 (5) Hypertension ICD Codes: I10 - Essential (primary) hypertension SNOMED: 99863072 (6) Diabetic neuropathy ICD Codes: E11.40 - Type 2 diabetes mellitus with diabetic neuropathy, unspecified SNOMED: 77531288, 155712060, 003573572 (7) Diabetes mellitus ICD Codes: E11.9 - Type 2 diabetes mellitus without complications SNOMED: 17449917 (8) Anemia ICD Codes: D64.9 - Anemia, unspecified SNOMED: 143976024 Status: stable, progressing Assessment/Plan o2 pulm tx diurese transfuse prn bp bs control cbc bmp am dc if clear Subjective Constitutional: Reports: weakness Allergies: Coded Allergies: LISINOPRIL (Verified Allergy, Unknown, 07/16/18) LOSARTAN (Verified Allergy, Unknown, 07/16/18) All Systems: reviewed and negative except above Subjective sleepy calm Objective Last 24 Hour Vital Signs Date Time Temp Pulse Resp B/P (MAP) Pulse Ox O2 Delivery O2 Flow Rate FiO2 07/21/18 09:53 98.5 07/21/18 09:20 62 140/51 07/21/18 09:19 62 140/51 07/21/18 08:26 98 Room Air 21 07/21/18 08:26 72 18 Room Air 21 07/21/18 08:26 Room Air 21 07/21/18 08:00 98.7 62 19 140/51 (80) 96 07/21/18 05:27 150/94 07/21/18 04:00 98.5 68 17 150/94 (112) 94 07/21/18 00:00 98.5 69 18 143/63 (89) 93 07/20/18 21:30 141/60 07/20/18 21:00 Room Air Room Air 07/20/18 20:35 67 141/60 07/20/18 20:20 65 18 Room Air 21 07/20/18 20:20 Room Air 21 07/20/18 20:20 98 Room Air 21 07/20/18 20:00 98.5 67 19 141/60 (87) 95 07/20/18 16:05 98.0 65 16 111/64 (80) 95 07/20/18 14:39 143/66 07/20/18 12:45 98.5 18 18 143/66 (91) 95 Intake and Output 07/20/18 07/21/18 19:00 07:00 Intake Total 1010 ml 460 ml Balance 1010 ml 460 ml Intake Oral 400 ml IV Total 60 ml Other 1010 ml Laboratory Tests 07/21/18 05:20: White Blood Count 5.7, Red Blood Count 2.66L, Hemoglobin 8.6L, Hematocrit 26.5L , Mean Corpuscular Volume 100H, Mean Corpuscular Hemoglobin 32.2H, Mean Corpuscular Hemoglobin Concent 32.3, Red Cell Distribution Width 13.4, Platelet Count 205, Mean Platelet Volume 8.7, Neutrophils (%) (Auto) 67.1, Lymphocytes (% ) (Auto) 21.7, Monocytes (%) (Auto) 5.8, Eosinophils (%) (Auto) 4.9H, Basophils (%) (Auto) 0.5, Sodium Level 140, Potassium Level 4.5, Chloride Level 107, Carbon Dioxide Level 23, Anion Gap 10, Blood Urea Nitrogen 77H, Creatinine 3.6H , Estimat Glomerular Filtration Rate 15.9, Glucose Level 144H, Calcium Level 8.6 Height (Feet): 5 Height (Inches): 2.00 Weight (Pounds): 164 General Appearance: lethargic EENT: normal ENT inspection Neck: normal alignment Cardiovascular: normal peripheral pulses, normal rate, regular rhythm Respiratory/Chest: chest wall non-tender, lungs clear, normal breath sounds Abdomen: normal bowel sounds, non tender, soft Extremities: normal inspection Edema: no edema noted Arm (L), no edema noted Arm (R), no edema noted Leg (L), no edema noted Leg (R), no edema noted Pedal (L), no edema noted Pedal (R), no edema noted Generalized Neurologic: motor weakness Skin: normal pigmentation, warm/dry Naun Geiger DO Jul 21, 2018 11:24
--- NOTE | 2018-07-21 11:36 | GI Progress Note ---
Assessment/Plan Problems: (1) Constipation ICD Codes: K59.00 - Constipation, unspecified SNOMED: 84259827 (2) Abdominal pain ICD Codes: R10.9 - Unspecified abdominal pain SNOMED: 80206829 (3) Anemia ICD Codes: D64.9 - Anemia, unspecified SNOMED: 787804301 Status: stable Status Narrative Discussed with Dr. Yarbrough. Assessment/Plan OB stool negative stable H&H fu pulmonary recs monitor H&H, prn transfusions bowel regime ppi fu labs dc planning outpatient GI procedures The patient was seen and examined at bedside and all new and available data was reviewed in the patients chart. I agree with the above findings, impression and plan. (Patient seen earlier today. Signature stamp does not reflect patient encounter time.). - Marco Antonio Yarbrough MD Subjective Subjective Constipation resolved Denies any epigastric pain Tolerating diet Objective Last 24 Hour Vital Signs Date Time Temp Pulse Resp B/P (MAP) Pulse Ox O2 Delivery O2 Flow Rate FiO2 07/21/18 09:53 98.5 07/21/18 09:20 62 140/51 07/21/18 09:19 62 140/51 07/21/18 08:26 98 Room Air 21 07/21/18 08:26 72 18 Room Air 21 07/21/18 08:26 Room Air 21 07/21/18 08:00 98.7 62 19 140/51 (80) 96 07/21/18 05:27 150/94 07/21/18 04:00 98.5 68 17 150/94 (112) 94 07/21/18 00:00 98.5 69 18 143/63 (89) 93 07/20/18 21:30 141/60 07/20/18 21:00 Room Air Room Air 07/20/18 20:35 67 141/60 07/20/18 20:20 65 18 Room Air 21 07/20/18 20:20 Room Air 21 07/20/18 20:20 98 Room Air 21 07/20/18 20:00 98.5 67 19 141/60 (87) 95 07/20/18 16:05 98.0 65 16 111/64 (80) 95 07/20/18 14:39 143/66 07/20/18 12:45 98.5 18 18 143/66 (91) 95 Intake and Output 07/20/18 07/21/18 19:00 07:00 Intake Total 1010 ml 460 ml Balance 1010 ml 460 ml Intake Oral 400 ml IV Total 60 ml Other 1010 ml Laboratory Tests Test 07/21/18 05:20 White Blood Count 5.7 K/UL (4.8-10.8) Red Blood Count 2.66 M/UL (4.20-5.40) L Hemoglobin 8.6 G/DL (12.0-16.0) L Hematocrit 26.5 % (37.0-47.0) L Mean Corpuscular Volume 100 FL (80-99) H Mean Corpuscular Hemoglobin 32.2 PG (27.0-31.0) H Mean Corpuscular Hemoglobin Concent 32.3 G/DL (32.0-36.0) Red Cell Distribution Width 13.4 % (11.6-14.8) Platelet Count 205 K/UL (150-450) Mean Platelet Volume 8.7 FL (6.5-10.1) Neutrophils (%) (Auto) 67.1 % (45.0-75.0) Lymphocytes (%) (Auto) 21.7 % (20.0-45.0) Monocytes (%) (Auto) 5.8 % (1.0-10.0) Eosinophils (%) (Auto) 4.9 % (0.0-3.0) H Basophils (%) (Auto) 0.5 % (0.0-2.0) Sodium Level 140 MMOL/L (136-145) Potassium Level 4.5 MMOL/L (3.5-5.1) Chloride Level 107 MMOL/L (98-107) Carbon Dioxide Level 23 MMOL/L (21-32) Anion Gap 10 mmol/L (5-15) Blood Urea Nitrogen 77 mg/dL (7-18) H Creatinine 3.6 MG/DL (0.55-1.30) H Estimat Glomerular Filtration Rate 15.9 mL/min (>60) Glucose Level 144 MG/DL (74-106) H Calcium Level 8.6 MG/DL (8.5-10.1) Height (Feet): 5 Height (Inches): 2.00 Weight (Pounds): 164 General Appearance: WD/WN, no apparent distress, alert Cardiovascular: normal rate Respiratory/Chest: normal breath sounds, no respiratory distress Abdominal Exam: normal bowel sounds, non tender, soft Extremities: normal range of motion, non-tender Lance Sosa NP Jul 21, 2018 11:36
[2018-07-21 12:00] VITALS: BP 130/58
--- NOTE | 2018-07-21 13:37 | General Progress Note ---
Assessment/Plan Status: stable Assessment/Plan #. Anemia of chronic disease -- patient with ongoing kidney damage, cr is worse now --> anemia panel has been reviewed. Ferritin at 214, TIBC at 214 --> nephrology is following, appreciate recs --> continue on epogen --> transfuse if hgb is <7 --> hemolysis w/u has been reviewed and none noted --> trend hgb 7.7-->8.5-->8.5 #. Coagulopathy with elevated inr on admission --> likely malnutrition related, now inr better --> trend is any bleeding diathesis is noted # Acute versus chronic renal failure on ckd. As per renal etiology of acute renal failure is cardiorenal syndrome, prerenal azotemia versus unstable --> bp to improve on current meds --> appreciate renal recs #. History of congestive heart failure, but at this point the patient seems to be euvolemic. --> per cardiology #. 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 #. Uncontrolled hypertension. --> controlled Greatly appreciate consultation Subjective Date patient seen: Jul 21, 2018 Hematologic/Lymphatic: Reports: anemia Allergies: Coded Allergies: LISINOPRIL (Verified Allergy, Unknown, 07/16/18) LOSARTAN (Verified Allergy, Unknown, 07/16/18) All Systems: reviewed and negative except above Subjective Pt awake and alert. No acute events. H/H stable. Objective Last 24 Hour Vital Signs Date Time Temp Pulse Resp B/P (MAP) Pulse Ox O2 Delivery O2 Flow Rate FiO2 07/21/18 13:06 98.6 07/21/18 12:00 98.6 63 20 130/58 (82) 97 07/21/18 09:53 98.5 07/21/18 09:20 62 140/51 07/21/18 09:19 62 140/51 07/21/18 09:00 Room Air Room Air 07/21/18 08:26 98 Room Air 21 07/21/18 08:26 72 18 Room Air 21 07/21/18 08:26 Room Air 21 07/21/18 08:00 98.7 62 19 140/51 (80) 96 07/21/18 05:27 150/94 07/21/18 04:00 98.5 68 17 150/94 (112) 94 12/14/18 00:00 98.5 69 18 143/63 (89) 93 07/20/18 21:30 141/60 07/20/18 21:00 Room Air Room Air 07/20/18 20:35 67 141/60 07/20/18 20:20 65 18 Room Air 21 07/20/18 20:20 Room Air 21 07/20/18 20:20 98 Room Air 21 07/20/18 20:00 98.5 67 19 141/60 (87) 95 07/20/18 16:05 98.0 65 16 111/64 (80) 95 07/20/18 14:39 143/66 Intake and Output 07/20/18 07/21/18 19:00 07:00 Intake Total 1010 ml 460 ml Balance 1010 ml 460 ml Intake Oral 400 ml IV Total 60 ml Other 1010 ml Laboratory Tests 07/21/18 05:20: White Blood Count 5.7, Red Blood Count 2.66L, Hemoglobin 8.6L, Hematocrit 26.5L , Mean Corpuscular Volume 100H, Mean Corpuscular Hemoglobin 32.2H, Mean Corpuscular Hemoglobin Concent 32.3, Red Cell Distribution Width 13.4, Platelet Count 205, Mean Platelet Volume 8.7, Neutrophils (%) (Auto) 67.1, Lymphocytes (% ) (Auto) 21.7, Monocytes (%) (Auto) 5.8, Eosinophils (%) (Auto) 4.9H, Basophils (%) (Auto) 0.5, Sodium Level 140, Potassium Level 4.5, Chloride Level 107, Carbon Dioxide Level 23, Anion Gap 10, Blood Urea Nitrogen 77H, Creatinine 3.6H , Estimat Glomerular Filtration Rate 15.9, Glucose Level 144H, Calcium Level 8.6 Height (Feet): 5 Height (Inches): 2.00 Weight (Pounds): 164 Objective VITAL SIGNS: have been reviewed HEAD AND NECK: No JVP. No LAD. No thyromegaly. Extraocular movements intact. Pupils are reactive to light and accommodation. LUNGS: Decreased breathing sounds on both sides. CARDIAC: Regular rate and rhythm. S1-S2. No murmur. No rub. ABDOMEN: Soft, nontender, and nondistended. EXTREMITIES: 1+ edema. No clubbing. No cyanosis. Amandeep Howell MD Jul 21, 2018 13:37
--- NOTE | 2018-07-21 15:34 | Infectious Diseases Prog Note ---
Assessment/Plan Assessment/Plan Assessment: Probable PNA, s/p Rx -CXR: Reduced lung volumes with bibasilar infiltrates. -influenza sc neg -Bcx neg Afebrile No leukocytosis Pyuria, mild -u/a wbc 5-10,nit neg leuk +1,. many sq cells Acute CHF exacerbation MICHELLE asthma HTN DM CVA w/ L side weakness NH resident Plan: -Continue to monitor off abx -07/20 SP Levaquin #5 -07/15 SP Unasyn x1 -Monitor CBC/C MP, temperatures -Aspiration precautions -Cards, Renal f/u Thank you for this consultation. Will continue to follow along with you. Discussed with RN. Subjective Allergies: Coded Allergies: LISINOPRIL (Verified Allergy, Unknown, 07/16/18) LOSARTAN (Verified Allergy, Unknown, 07/16/18) Subjective afebrile at RA now off abx Objective Vital Signs Last 24 Hour Vital Signs Date Time Temp Pulse Resp B/P (MAP) Pulse Ox O2 Delivery O2 Flow Rate FiO2 07/21/18 14:38 137/64 07/21/18 13:06 98.6 07/21/18 12:00 98.6 63 20 130/58 (82) 97 07/21/18 09:53 98.5 07/21/18 09:20 62 140/51 07/21/18 09:19 62 140/51 07/21/18 09:00 Room Air Room Air 07/21/18 08:26 98 Room Air 21 07/21/18 08:26 72 18 Room Air 21 07/21/18 08:26 Room Air 21 07/21/18 08:00 98.7 62 19 140/51 (80) 96 07/21/18 05:27 150/94 07/21/18 04:00 98.5 68 17 150/94 (112) 94 07/21/18 00:00 98.5 69 18 143/63 (89) 93 07/20/18 21:30 141/60 07/20/18 21:00 Room Air Room Air 07/20/18 20:35 67 141/60 07/20/18 20:20 65 18 Room Air 21 07/20/18 20:20 Room Air 21 07/20/18 20:20 98 Room Air 21 07/20/18 20:00 98.5 67 19 141/60 (87) 95 07/20/18 16:05 98.0 65 16 111/64 (80) 95 Height (Feet): 5 Height (Inches): 2.00 Weight (Pounds): 164 Objective GENERAL: Calm in bed, oriented x3, slightly distress secondary to short of breath. CARDIOVASCULAR: No murmur. LUNGS: Poor exchange. ABDOMEN: Bowel sounds distant. EXTREMITIES: No cyanosis, clubbing, or edema. NEUROLOGIC: The patient moves all extremities, slightly weak. Laboratory Tests Test 07/21/18 05:20 White Blood Count 5.7 K/UL (4.8-10.8) Red Blood Count 2.66 M/UL (4.20-5.40) L Hemoglobin 8.6 G/DL (12.0-16.0) L Hematocrit 26.5 % (37.0-47.0) L Mean Corpuscular Volume 100 FL (80-99) H Mean Corpuscular Hemoglobin 32.2 PG (27.0-31.0) H Mean Corpuscular Hemoglobin Concent 32.3 G/DL (32.0-36.0) Red Cell Distribution Width 13.4 % (11.6-14.8) Platelet Count 205 K/UL (150-450) Mean Platelet Volume 8.7 FL (6.5-10.1) Neutrophils (%) (Auto) 67.1 % (45.0-75.0) Lymphocytes (%) (Auto) 21.7 % (20.0-45.0) Monocytes (%) (Auto) 5.8 % (1.0-10.0) Eosinophils (%) (Auto) 4.9 % (0.0-3.0) H Basophils (%) (Auto) 0.5 % (0.0-2.0) Sodium Level 140 MMOL/L (136-145) Potassium Level 4.5 MMOL/L (3.5-5.1) Chloride Level 107 MMOL/L (98-107) Carbon Dioxide Level 23 MMOL/L (21-32) Anion Gap 10 mmol/L (5-15) Blood Urea Nitrogen 77 mg/dL (7-18) H Creatinine 3.6 MG/DL (0.55-1.30) H Estimat Glomerular Filtration Rate 15.9 mL/min (>60) Glucose Level 144 MG/DL (74-106) H Calcium Level 8.6 MG/DL (8.5-10.1) Current Medications Medications (Trade) Dose Ordered Sig/Zara Route PRN Reason Start Time Stop Time Status Last Admin Dose Admin Acetaminophen (Tylenol) 650 mg Q4H PRN ORAL T>100.5 07/15/18 15:30 08/14/18 15:29 Al Hydroxide/Mg Hydroxide (Mylanta II) 30 ml Q6H PRN ORAL dyspepsia 07/15/18 15:30 08/14/18 15:29 Albuterol/ Ipratropium (Albuterol/ Ipratropium) 3 ml Q4H PRN HHN Shortness of Breath 07/17/18 09:30 07/22/18 09:29 07/18/18 09:28 Amlodipine Besylate (Norvasc) 10 mg DAILY ORAL 07/16/18 09:00 08/15/18 08:59 07/21/18 09:19 Aspirin (ASA) 81 mg DAILY ORAL 07/16/18 09:00 08/15/18 08:59 07/21/18 09:19 Atorvastatin Calcium (Lipitor) 80 mg BEDTIME ORAL 07/16/18 21:00 08/15/18 20:59 07/20/18 20:34 Carvedilol (Coreg) 37.5 mg EVERY 12 HOURS ORAL 07/16/18 09:00 08/15/18 08:59 07/21/18 09:20 Clonidine HCl (Catapres Tab) 0.1 mg Q6H PRN ORAL SBP > 160mmHg 07/15/18 21:30 08/14/18 21:29 07/15/18 21:44 Dextrose (Dextrose 50%) 25 ml Q30M PRN IV Hypoglycemia 07/15/18 15:30 08/14/18 15:26 Dextrose (Dextrose 50%) 50 ml Q30M PRN IV hypoglycemia 07/15/18 15:30 08/14/18 15:29 Epoetin Yordan (Procrit (for non ESRD use)) 4,000 units 2XW@2100 SUBQ 07/17/18 21:00 08/16/18 20:59 07/20/18 20:53 Gabapentin (Neurontin) 800 mg THREE TIMES A DAY ORAL 07/15/18 20:00 08/14/18 19:59 12/14/18 12:37 Guaifenesin (Robitussin) 100 mg Q4H PRN ORAL For Cough 07/17/18 09:30 08/16/18 09:29 Hydralazine HCl (Apresoline) 100 mg Q8HR ORAL 07/16/18 14:00 08/15/18 13:59 07/21/18 14:38 Insulin Aspart (NovoLOG) BEFORE MEALS AND HS SUBQ 07/15/18 22:30 08/14/18 22:29 07/21/18 12:38 Iron Sucrose 100 mg/Sodium Chloride 60 ml @ 240 mls/hr BEDTIME IV 07/17/18 21:00 07/21/18 21:00 07/20/18 20:36 Levofloxacin (Levaquin) 500 mg Q48H ORAL 07/19/18 17:00 07/26/18 16:59 07/19/18 18:07 Lorazepam (Ativan 2mg/ml 1ml) 0.5 mg Q4H PRN IV For Anxiety 07/15/18 15:30 07/22/18 15:29 Mirtazapine (Remeron) 7.5 mg BEDTIME ORAL 07/15/18 22:00 08/15/18 20:59 07/20/18 20:34 Morphine Sulfate (Morphine Sulfate) 2 mg Q4H PRN IVP Breakthrough Pain 07/17/18 09:38 07/24/18 09:37 07/21/18 12:36 Ondansetron HCl (Zofran) 4 mg Q6H PRN IVP Nausea & Vomiting 07/15/18 15:30 08/14/18 15:29 Oxycodone HCl (Roxicodone) 5 mg Q4H PRN ORAL Moderate Pain (Pain Scale 4-6) 07/15/18 22:00 07/22/18 21:59 07/19/18 00:40 Oxycodone/ Acetaminophen (Percocet 10/325) 1 tab Q4H PRN ORAL Severe Pain (Pain Scale 7-10) 07/15/18 21:30 07/22/18 21:29 07/21/18 09:23 Polyethylene Glycol (Miralax) 17 gm HSPRN PRN ORAL Constipation 07/15/18 21:00 08/14/18 20:59 Zolpidem Tartrate (Ambien) 5 mg HSPRN PRN ORAL Insomnia 07/15/18 21:00 07/22/18 20:59 07/16/18 23:27 Juliane Mcdonald M.D. Jul 21, 2018 15:34
[2018-07-21 16:00] VITALS: BP 137/64
[2018-07-21 20:00] VITALS: BP 157/74
[2018-07-21] MEDS: Albuterol/Ipratropium 3ml neb HHN PRN (20:22)
[2018-07-21] MEDS: Atorvastatin 80mg tab ORAL SCH (21:38)
[2018-07-21] MEDS: Iron Sucrose 100 MG in NS 55 ML IV SCH (21:39)
[2018-07-21] MEDS: Morphine Sulfate 4mg/ml Inj (IV/IM USE ONLY) IVP PRN (23:02)
--- NOTE | 2018-07-21 23:40 | Nephrology Progress Note ---
Assessment/Plan Assessment 1. Acute versus chronic renal failure in setting of solitary kidney 2. Chronic kidney disease, most likely due to diabetic nephropathy since the patient has some degree of diabetic neuropathy. 3. History of congestive heart failure, but at this point the patient seems to be euvolemic. 4. Severe anemia or anemia of chronic kidney disease. 5. 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 6. Uncontrolled hypertension. Plan hold lasix monitoring renal function avoid NSAID replace electrolyte replace electrolyte as need it Subjective Subjective alert awake no acute events Objective Objective Last 24 Hour Vital Signs Date Time Temp Pulse Resp B/P (MAP) Pulse Ox O2 Delivery O2 Flow Rate FiO2 07/21/18 21:53 157/74 07/21/18 21:39 70 157/74 07/21/18 21:00 Room Air Room Air 07/21/18 20:25 78 20 99 Room Air 21 07/21/18 20:14 74 18 98 Room Air 21 07/21/18 20:00 97 Room Air 21 07/21/18 20:00 Room Air 21 07/21/18 20:00 98.0 70 20 157/74 (101) 94 07/21/18 19:30 74 18 Room Air 21 07/21/18 18:53 97.8 07/21/18 16:00 97.8 88 20 137/64 (88) 98 07/21/18 14:38 137/64 07/21/18 13:06 98.6 07/21/18 12:00 98.6 63 20 130/58 (82) 97 07/21/18 09:20 62 140/51 07/21/18 09:19 62 140/51 07/21/18 09:00 Room Air Room Air 07/21/18 08:26 98 Room Air 21 07/21/18 08:26 72 18 Room Air 07/21/18 08:26 Room Air 21 07/21/18 08:00 98.7 62 19 140/51 (80) 96 07/21/18 05:27 150/94 07/21/18 04:00 98.5 68 17 150/94 (112) 94 07/21/18 00:00 98.5 69 18 143/63 (89) 93 Intake and Output 07/20/18 07/21/18 19:00 07:00 Intake Total 1010 ml 460 ml Balance 1010 ml 460 ml Intake Oral 400 ml IV Total 60 ml Other 1010 ml Laboratory Tests 07/21/18 05:20: White Blood Count 5.7, Red Blood Count 2.66L, Hemoglobin 8.6L, Hematocrit 26.5L , Mean Corpuscular Volume 100H, Mean Corpuscular Hemoglobin 32.2H, Mean Corpuscular Hemoglobin Concent 32.3, Red Cell Distribution Width 13.4, Platelet Count 205, Mean Platelet Volume 8.7, Neutrophils (%) (Auto) 67.1, Lymphocytes (% ) (Auto) 21.7, Monocytes (%) (Auto) 5.8, Eosinophils (%) (Auto) 4.9H, Basophils (%) (Auto) 0.5, Sodium Level 140, Potassium Level 4.5, Chloride Level 107, Carbon Dioxide Level 23, Anion Gap 10, Blood Urea Nitrogen 77H, Creatinine 3.6H , Estimat Glomerular Filtration Rate 15.9, Glucose Level 144H, Calcium Level 8.6 Height (Feet): 5 Height (Inches): 2.00 Weight (Pounds): 164 Objective HEAD AND NECK: No JVP. No LAD. No thyromegaly. Extraocular movements intact. Pupils are reactive to light and accommodation. LUNGS: Decreased breathing sounds on both sides. CARDIAC: Regular rate and rhythm. S1-S2. No murmur. No rub. ABDOMEN: Soft, nontender, and nondistended. EXTREMITIES: 1+ edema. No clubbing. No cyanosis. Nabila Park MD Jul 21, 2018 23:40
[2018-07-22] VITALS (7 sets, daily range): BP systolic 130–153; BP diastolic 60–91
[2018-07-22] MEDS: Morphine Sulfate 4mg/ml Inj (IV/IM USE ONLY) IVP PRN ×3 (03:13→20:29)
[2018-07-22] MEDS: HydrALAZINE 50mg tab ORAL SCH ×3 (05:34→22:05)
[2018-07-22] MEDS: NovoLOG Insulin Flexpen SUBQ SCH ×4 (05:36→21:18)
[2018-07-22 07:57] LABS: BASOPHILS % (AUTO) 0.6 % (0.0-2.0); EOSINOPHILS % (AUTO) 3.9 % (0.0-3.0); HEMATOCRIT 25.2 % (37.0-47.0); HEMOGLOBIN 8.1 G/DL (12.0-16.0); LYMPHOCYTES % (AUTO) 22.6 % (20.0-45.0); MEAN CORPUSCULAR VOLUME 100 FL (80-99); MONOCYTES % (AUTO) 7.9 % (1.0-10.0); NEUTROPHILS % (AUTO) 65.1 % (45.0-75.0); PLATELET COUNT 178 K/UL (150-450); RED BLOOD COUNT 2.53 M/UL (4.20-5.40); RED CELL DISTRIBUTION WIDTH 12.8 % (11.6-14.8)
[2018-07-22 08:05] LABS: ANION GAP 7 mmol/L (5-15); BLOOD UREA NITROGEN 78 mg/dL (7-18); CALCIUM 8.6 MG/DL (8.5-10.1); CARBON DIOXIDE 24 MMOL/L (21-32); CHLORIDE 109 MMOL/L (98-107); CREATININE 3.5 MG/DL (0.55-1.30); POTASSIUM 4.5 MMOL/L (3.5-5.1); SODIUM 140 MMOL/L (136-145)
--- NOTE | 2018-07-22 08:09 | Infectious Diseases Prog Note ---
Assessment/Plan Assessment/Plan Probable PNA, s/p Rx -CXR: Reduced lung volumes with bibasilar infiltrates. -influenza sc neg -Bcx neg Afebrile No leukocytosis Pyuria, mild -u/a wbc 5-10,nit neg leuk +1,. many sq cells Acute CHF exacerbation MICHELLE asthma HTN DM CVA w/ L side weakness NH resident Plan: -Continue to monitor off abx as clinically stable -07/20 SP Levaquin #5 -07/15 SP Unasyn x1 -Monitor CBC/C MP, temperatures -Aspiration precautions -Cards, Renal f/u Thank you for this consultation. Will continue to follow along with you. Subjective Allergies: Coded Allergies: LISINOPRIL (Verified Allergy, Unknown, 07/16/18) LOSARTAN (Verified Allergy, Unknown, 07/16/18) Subjective Afebrile No leukocytosis Satting well on RA Objective Vital Signs Last 24 Hour Vital Signs Date Time Temp Pulse Resp B/P (MAP) Pulse Ox O2 Delivery O2 Flow Rate FiO2 07/22/18 05:34 142/60 07/22/18 04:00 98.4 69 19 149/70 (96) 96 07/22/18 00:00 98.4 66 17 153/69 (97) 96 07/21/18 21:53 157/74 07/21/18 21:39 70 157/74 07/21/18 21:00 Room Air Room Air 07/21/18 20:25 78 20 99 Room Air 21 07/21/18 20:14 74 18 98 Room Air 21 07/21/18 20:00 97 Room Air 21 07/21/18 20:00 Room Air 21 07/21/18 20:00 98.0 70 20 157/74 (101) 94 07/21/18 19:30 74 18 Room Air 21 07/21/18 18:53 97.8 07/21/18 16:00 97.8 88 20 137/64 (88) 98 07/21/18 14:38 137/64 07/21/18 13:06 98.6 07/21/18 12:00 98.6 63 20 130/58 (82) 97 07/21/18 09:20 62 140/51 07/21/18 09:19 62 140/51 07/21/18 09:00 Room Air Room Air 07/21/18 08:26 98 Room Air 21 07/21/18 08:26 72 18 Room Air 21 07/21/18 08:26 Room Air 21 Height (Feet): 5 Height (Inches): 2.00 Weight (Pounds): 170 Objective GENERAL: NAD CARDIOVASCULAR: RRR, No murmur. LUNGS: Poor exchange. ABDOMEN: Bowel sounds distant. EXTREMITIES: No cyanosis, clubbing, or edema. NEUROLOGIC: The patient moves all extremities, slightly weak. Laboratory Tests Test 07/22/18 06:52 White Blood Count 5.0 K/UL (4.8-10.8) Red Blood Count 2.53 M/UL (4.20-5.40) L Hemoglobin 8.1 G/DL (12.0-16.0) L Hematocrit 25.2 % (37.0-47.0) L Mean Corpuscular Volume 100 FL (80-99) H Mean Corpuscular Hemoglobin 31.9 PG (27.0-31.0) H Mean Corpuscular Hemoglobin Concent 32.0 G/DL (32.0-36.0) Red Cell Distribution Width 12.8 % (11.6-14.8) Platelet Count 178 K/UL (150-450) Mean Platelet Volume 7.8 FL (6.5-10.1) Neutrophils (%) (Auto) 65.1 % (45.0-75.0) Lymphocytes (%) (Auto) 22.6 % (20.0-45.0) Monocytes (%) (Auto) 7.9 % (1.0-10.0) Eosinophils (%) (Auto) 3.9 % (0.0-3.0) H Basophils (%) (Auto) 0.6 % (0.0-2.0) Sodium Level 140 MMOL/L (136-145) Potassium Level 4.5 MMOL/L (3.5-5.1) Chloride Level 109 MMOL/L (98-107) H Carbon Dioxide Level 24 MMOL/L (21-32) Anion Gap 7 mmol/L (5-15) Blood Urea Nitrogen 78 mg/dL (7-18) H Creatinine 3.5 MG/DL (0.55-1.30) H Estimat Glomerular Filtration Rate 16.5 mL/min (>60) Glucose Level 142 MG/DL (74-106) H Calcium Level 8.6 MG/DL (8.5-10.1) Current Medications Medications (Trade) Dose Ordered Sig/Zara Route PRN Reason Start Time Stop Time Status Last Admin Dose Admin Acetaminophen (Tylenol) 650 mg Q4H PRN ORAL T>100.5 07/15/18 15:30 08/14/18 15:29 Al Hydroxide/Mg Hydroxide (Mylanta II) 30 ml Q6H PRN ORAL dyspepsia 07/15/18 15:30 08/14/18 15:29 Albuterol/ Ipratropium (Albuterol/ Ipratropium) 3 ml Q4H PRN HHN Shortness of Breath 07/17/18 09:30 07/22/18 09:29 07/21/18 20:22 Amlodipine Besylate (Norvasc) 10 mg DAILY ORAL 07/16/18 09:00 08/15/18 08:59 07/21/18 09:19 Aspirin (ASA) 81 mg DAILY ORAL 07/16/18 09:00 08/15/18 08:59 07/21/18 09:19 Atorvastatin Calcium (Lipitor) 80 mg BEDTIME ORAL 07/16/18 21:00 08/15/18 20:59 07/21/18 21:38 Carvedilol (Coreg) 37.5 mg EVERY 12 HOURS ORAL 07/16/18 09:00 08/15/18 08:59 07/21/18 21:39 Clonidine HCl (Catapres Tab) 0.1 mg Q6H PRN ORAL SBP > 160mmHg 07/15/18 21:30 08/14/18 21:29 07/15/18 21:44 Dextrose (Dextrose 50%) 25 ml Q30M PRN IV Hypoglycemia 07/15/18 15:30 08/14/18 15:26 Dextrose (Dextrose 50%) 50 ml Q30M PRN IV hypoglycemia 07/15/18 15:30 08/14/18 15:29 Epoetin Yordan (Procrit (for non ESRD use)) 4,000 units 2XW@2100 SUBQ 07/17/18 21:00 08/16/18 20:59 07/20/18 20:53 Gabapentin (Neurontin) 800 mg THREE TIMES A DAY ORAL 07/15/18 20:00 08/14/18 19:59 07/21/18 17:22 Guaifenesin (Robitussin) 100 mg Q4H PRN ORAL For Cough 07/17/18 09:30 08/16/18 09:29 Hydralazine HCl (Apresoline) 100 mg Q8HR ORAL 07/16/18 14:00 08/15/18 13:59 07/22/18 05:34 Insulin Aspart (NovoLOG) BEFORE MEALS AND HS SUBQ 07/15/18 22:30 08/14/18 22:29 07/22/18 05:36 Lorazepam (Ativan 2mg/ml 1ml) 0.5 mg Q4H PRN IV For Anxiety 07/15/18 15:30 07/22/18 15:29 Mirtazapine (Remeron) 7.5 mg BEDTIME ORAL 07/15/18 22:00 08/15/18 20:59 07/21/18 21:42 Morphine Sulfate (Morphine Sulfate) 2 mg Q4H PRN IVP BREAKTHRU PAIN 07/21/18 17:00 07/28/18 16:59 07/22/18 07:57 Ondansetron HCl (Zofran) 4 mg Q6H PRN IVP Nausea & Vomiting 07/15/18 15:30 08/14/18 15:29 Oxycodone HCl (Roxicodone) 5 mg Q4H PRN ORAL Moderate Pain (Pain Scale 4-6) 07/15/18 22:00 07/22/18 21:59 07/19/18 00:40 Oxycodone/ Acetaminophen (Percocet 10/325) 1 tab Q4H PRN ORAL Severe Pain (Pain Scale 7-10) 07/15/18 21:30 07/22/18 21:29 07/21/18 18:23 Polyethylene Glycol (Miralax) 17 gm HSPRN PRN ORAL Constipation 07/15/18 21:00 08/14/18 20:59 Zolpidem Tartrate (Ambien) 5 mg HSPRN PRN ORAL Insomnia 07/15/18 21:00 07/22/18 20:59 07/16/18 23:27 Hilton Masters MD Jul 22, 2018 08:09
[2018-07-22] MEDS: Carvedilol 12.5mg tab ORAL SCH ×2 (08:47→21:14)
--- NOTE | 2018-07-22 09:00 | General Progress Note ---
Assessment/Plan Problem List: (1) SOB (shortness of breath) ICD Codes: R06.02 - Shortness of breath SNOMED: 937620063 (2) CHF (congestive heart failure) ICD Codes: I50.9 - Heart failure, unspecified SNOMED: 99063214 (3) Renal failure ICD Codes: N19 - Unspecified kidney failure SNOMED: 91384211 (4) Asthma ICD Codes: J45.909 - Unspecified asthma, uncomplicated SNOMED: 414393408 (5) Hypertension ICD Codes: I10 - Essential (primary) hypertension SNOMED: 30249274 (6) Diabetic neuropathy ICD Codes: E11.40 - Type 2 diabetes mellitus with diabetic neuropathy, unspecified SNOMED: 36492853, 276193448, 780221808 (7) Diabetes mellitus ICD Codes: E11.9 - Type 2 diabetes mellitus without complications SNOMED: 59909012 (8) Anemia ICD Codes: D64.9 - Anemia, unspecified SNOMED: 296007507 Status: unchanged Assessment/Plan o2 pulm tx diurese transfuse prn bp bs control cbc bmp am dc if clear Subjective Constitutional: Reports: weakness Allergies: Coded Allergies: LISINOPRIL (Verified Allergy, Unknown, 07/16/18) LOSARTAN (Verified Allergy, Unknown, 07/16/18) All Systems: reviewed and negative except above Subjective sleepy calm Objective Last 24 Hour Vital Signs Date Time Temp Pulse Resp B/P (MAP) Pulse Ox O2 Delivery O2 Flow Rate FiO2 07/22/18 08:47 70 150/60 07/22/18 08:47 70 150/60 07/22/18 05:34 142/60 07/22/18 04:00 98.4 69 19 149/70 (96) 96 07/22/18 00:00 98.4 66 17 153/69 (97) 96 07/21/18 21:53 157/74 07/21/18 21:39 70 157/74 07/21/18 21:00 Room Air Room Air 07/21/18 20:25 78 20 99 Room Air 21 07/21/18 20:14 74 18 98 Room Air 21 07/21/18 20:00 97 Room Air 21 07/21/18 20:00 Room Air 21 07/21/18 20:00 98.0 70 20 157/74 (101) 94 07/21/18 19:30 74 18 Room Air 21 07/21/18 18:53 97.8 07/21/18 16:00 97.8 88 20 137/64 (88) 98 07/21/18 14:38 137/64 07/21/18 13:06 98.6 07/21/18 12:00 98.6 63 20 130/58 (82) 97 07/21/18 09:20 62 140/51 07/21/18 09:19 62 140/51 07/21/18 09:00 Room Air Room Air Intake and Output 07/21/18 07/22/18 18:59 06:59 Intake Total 784 ml 160 ml Balance 784 ml 160 ml Intake Oral 784 ml 100 ml IV Total 60 ml # Voids 1 1 # Bowel Movements 1 Laboratory Tests 07/22/18 06:52: White Blood Count 5.0, Red Blood Count 2.53L, Hemoglobin 8.1L, Hematocrit 25.2L , Mean Corpuscular Volume 100H, Mean Corpuscular Hemoglobin 31.9H, Mean Corpuscular Hemoglobin Concent 32.0, Red Cell Distribution Width 12.8, Platelet Count 178, Mean Platelet Volume 7.8, Neutrophils (%) (Auto) 65.1, Lymphocytes (% ) (Auto) 22.6, Monocytes (%) (Auto) 7.9, Eosinophils (%) (Auto) 3.9H, Basophils (%) (Auto) 0.6, Sodium Level 140, Potassium Level 4.5, Chloride Level 109H, Carbon Dioxide Level 24, Anion Gap 7, Blood Urea Nitrogen 78H, Creatinine 3.5H, Estimat Glomerular Filtration Rate 16.5, Glucose Level 142H, Calcium Level 8.6 Height (Feet): 5 Height (Inches): 2.00 Weight (Pounds): 170 General Appearance: lethargic EENT: normal ENT inspection Neck: normal alignment Cardiovascular: normal peripheral pulses, normal rate, regular rhythm Respiratory/Chest: chest wall non-tender, lungs clear, normal breath sounds Abdomen: normal bowel sounds, non tender, soft Extremities: normal inspection Edema: no edema noted Arm (L), no edema noted Arm (R), no edema noted Leg (L), no edema noted Leg (R), no edema noted Pedal (L), no edema noted Pedal (R), no edema noted Generalized Neurologic: motor weakness Skin: normal pigmentation, warm/dry Naun Geiger DO Jul 22, 2018 09:00
[2018-07-22] MEDS: Aspirin Baby 81mg ORAL SCH (09:22)
--- NOTE | 2018-07-22 13:00 | Nephrology Progress Note ---
Assessment/Plan Assessment 1. Acute versus chronic renal failure in setting of solitary kidney 2. Chronic kidney disease, most likely due to diabetic nephropathy since the patient has some degree of diabetic neuropathy. 3. History of congestive heart failure, but at this point the patient seems to be euvolemic. 4. Severe anemia or anemia of chronic kidney disease. 5. 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 6. Uncontrolled hypertension. Plan hold lasix monitoring renal function avoid NSAID replace electrolyte replace electrolyte as need it Subjective HEENT: Reports: no symptoms Genitourinary: Reports: no symptoms Neurologic/Psychiatric: Reports: no symptoms Subjective alert awake no acute events Objective Objective Last 24 Hour Vital Signs Date Time Temp Pulse Resp B/P (MAP) Pulse Ox O2 Delivery O2 Flow Rate FiO2 07/22/18 09:56 98.4 07/22/18 09:23 98.4 07/22/18 08:47 70 150/60 07/22/18 08:47 70 150/60 07/22/18 08:00 Room Air Room Air 07/22/18 08:00 97.6 70 18 150/60 (90) 96 07/22/18 05:34 142/60 07/22/18 04:00 98.4 69 19 149/70 (96) 96 07/22/18 00:00 98.4 66 17 153/69 (97) 96 07/21/18 21:53 157/74 07/21/18 21:39 70 157/74 07/21/18 21:00 Room Air Room Air 07/21/18 20:25 78 20 99 Room Air 21 07/21/18 20:14 74 18 98 Room Air 21 07/21/18 20:00 97 Room Air 21 07/21/18 20:00 Room Air 21 07/21/18 20:00 98.0 70 20 157/74 (101) 94 07/21/18 19:30 74 18 Room Air 21 07/21/18 16:00 97.8 88 20 137/64 (88) 98 07/21/18 14:38 137/64 07/21/18 13:06 98.6 Intake and Output 07/21/18 07/22/18 18:59 06:59 Intake Total 784 ml 160 ml Balance 784 ml 160 ml Intake Oral 784 ml 100 ml IV Total 60 ml # Voids 1 1 # Bowel Movements 1 Laboratory Tests 07/22/18 06:52: White Blood Count 5.0, Red Blood Count 2.53L, Hemoglobin 8.1L, Hematocrit 25.2L , Mean Corpuscular Volume 100H, Mean Corpuscular Hemoglobin 31.9H, Mean Corpuscular Hemoglobin Concent 32.0, Red Cell Distribution Width 12.8, Platelet Count 178, Mean Platelet Volume 7.8, Neutrophils (%) (Auto) 65.1, Lymphocytes (% ) (Auto) 22.6, Monocytes (%) (Auto) 7.9, Eosinophils (%) (Auto) 3.9H, Basophils (%) (Auto) 0.6, Sodium Level 140, Potassium Level 4.5, Chloride Level 109H, Carbon Dioxide Level 24, Anion Gap 7, Blood Urea Nitrogen 78H, Creatinine 3.5H, Estimat Glomerular Filtration Rate 16.5, Glucose Level 142H, Calcium Level 8.6 Height (Feet): 5 Height (Inches): 2.00 Weight (Pounds): 170 Objective HEAD AND NECK: No JVP. No LAD. No thyromegaly. Extraocular movements intact. Pupils are reactive to light and accommodation. LUNGS: Decreased breathing sounds on both sides. CARDIAC: Regular rate and rhythm. S1-S2. No murmur. No rub. ABDOMEN: Soft, nontender, and nondistended. EXTREMITIES: 1+ edema. No clubbing. No cyanosis. Nabila Park MD Jul 22, 2018 13:00
[2018-07-22] MEDS: Atorvastatin 80mg tab ORAL SCH (21:14)
[2018-07-23] VITALS: BP 143/56
[2018-07-23] MEDS: Morphine Sulfate 4mg/ml Inj (IV/IM USE ONLY) IVP PRN ×2 (00:14→05:21)
[2018-07-23 04:00] VITALS: BP 155/65
[2018-07-23] MEDS: HydrALAZINE 50mg tab ORAL SCH ×3 (05:17→21:48)
[2018-07-23] MEDS: NovoLOG Insulin Flexpen SUBQ SCH ×4 (05:56→20:31)
[2018-07-23 07:27] LABS: BASOPHILS % (AUTO) 0.6 % (0.0-2.0); EOSINOPHILS % (AUTO) 2.8 % (0.0-3.0); HEMATOCRIT 27.2 % (37.0-47.0); HEMOGLOBIN 8.6 G/DL (12.0-16.0); LYMPHOCYTES % (AUTO) 13.6 % (20.0-45.0); MEAN CORPUSCULAR VOLUME 100 FL (80-99); MONOCYTES % (AUTO) 5.7 % (1.0-10.0); NEUTROPHILS % (AUTO) 77.3 % (45.0-75.0); PLATELET COUNT 199 K/UL (150-450); RED BLOOD COUNT 2.71 M/UL (4.20-5.40); RED CELL DISTRIBUTION WIDTH 13.3 % (11.6-14.8); WHITE BLOOD COUNT 7.5 K/UL (4.8-10.8)
[2018-07-23 07:30] LABS: ANION GAP 11 mmol/L (5-15); BLOOD UREA NITROGEN 81 mg/dL (7-18); CALCIUM 8.5 MG/DL (8.5-10.1); CARBON DIOXIDE 20 MMOL/L (21-32); CHLORIDE 110 MMOL/L (98-107); CREATININE 3.3 MG/DL (0.55-1.30); POTASSIUM 5.3 MMOL/L (3.5-5.1); SODIUM 141 MMOL/L (136-145)
[2018-07-23] MEDS ORDERED: Albuterol/Ipratropium 3ml neb HHN PRN (07:45)
[2018-07-23] MEDS: Albuterol/Ipratropium 3ml neb HHN PRN (07:58)
[2018-07-23 08:00] VITALS: BP 149/68
[2018-07-23] MEDS: Carvedilol 12.5mg tab ORAL SCH ×2 (08:48→20:22)
[2018-07-23] MEDS: Aspirin Baby 81mg ORAL SCH (08:48)
--- NOTE | 2018-07-23 08:55 | General Progress Note ---
Assessment/Plan Problem List: (1) SOB (shortness of breath) ICD Codes: R06.02 - Shortness of breath SNOMED: 951349392 (2) CHF (congestive heart failure) ICD Codes: I50.9 - Heart failure, unspecified SNOMED: 96419373 (3) Renal failure ICD Codes: N19 - Unspecified kidney failure SNOMED: 71253852 (4) Asthma ICD Codes: J45.909 - Unspecified asthma, uncomplicated SNOMED: 627921260 (5) Hypertension ICD Codes: I10 - Essential (primary) hypertension SNOMED: 01202561 (6) Diabetic neuropathy ICD Codes: E11.40 - Type 2 diabetes mellitus with diabetic neuropathy, unspecified SNOMED: 91757678, 362278708, 574148214 (7) Diabetes mellitus ICD Codes: E11.9 - Type 2 diabetes mellitus without complications SNOMED: 21402640 (8) Anemia ICD Codes: D64.9 - Anemia, unspecified SNOMED: 904416535 Status: unchanged Assessment/Plan o2 pulm tx diurese transfuse prn bp bs control cbc bmp am dc if clear Subjective Constitutional: Reports: weakness Allergies: Coded Allergies: LISINOPRIL (Verified Allergy, Unknown, 07/16/18) LOSARTAN (Verified Allergy, Unknown, 07/16/18) All Systems: reviewed and negative except above Subjective sleepy calm Objective Last 24 Hour Vital Signs Date Time Temp Pulse Resp B/P (MAP) Pulse Ox O2 Delivery O2 Flow Rate FiO2 07/23/18 08:48 77 155/65 07/23/18 08:48 77 155/65 07/23/18 08:08 77 18 98 Room Air 07/23/18 07:58 78 18 95 Room Air 21 07/23/18 07:56 78 18 Room Air 21 07/23/18 05:17 155/65 07/23/18 04:00 98.7 70 20 155/65 (95) 95 07/23/18 00:00 99.0 69 18 143/56 (85) 98 07/22/18 22:05 132/65 18 21:35 98.7 69 20 132/65 (87) 97 07/22/18 21:14 69 132/65 07/22/18 21:00 Room Air Room Air 07/22/18 20:00 98.7 69 20 132/65 (87) 97 07/22/18 18:04 98.5 07/22/18 16:00 98.7 68 16 130/78 (95) 100 07/22/18 13:26 152/63 07/22/18 12:00 98.5 71 15 152/63 (92) 100 07/22/18 09:23 98.4 Intake and Output 07/22/18 07/23/18 18:59 06:59 Intake Total 500 ml 240 ml Balance 500 ml 240 ml Intake Oral 500 ml 240 ml # Voids 2 Laboratory Tests 07/23/18 06:45: White Blood Count 7.5, Red Blood Count 2.71L, Hemoglobin 8.6L, Hematocrit 27.2L , Mean Corpuscular Volume 100H, Mean Corpuscular Hemoglobin 31.8H, Mean Corpuscular Hemoglobin Concent 31.7L, Red Cell Distribution Width 13.3, Platelet Count 199, Mean Platelet Volume 7.2, Neutrophils (%) (Auto) 77.3H, Lymphocytes (%) (Auto) 13.6L, Monocytes (%) (Auto) 5.7, Eosinophils (%) (Auto) 2.8, Basophils (%) (Auto) 0.6, Sodium Level 141, Potassium Level 5.3H, Chloride Level 110H, Carbon Dioxide Level 20L, Anion Gap 11, Blood Urea Nitrogen 81H, Creatinine 3.3H, Estimat Glomerular Filtration Rate 17.6, Glucose Level 153H, Calcium Level 8.5 Height (Feet): 5 Height (Inches): 2.00 Weight (Pounds): 179 General Appearance: lethargic EENT: normal ENT inspection Neck: normal alignment Cardiovascular: normal peripheral pulses, normal rate, regular rhythm Respiratory/Chest: chest wall non-tender, decreased breath sounds Abdomen: normal bowel sounds, non tender, soft Extremities: normal inspection Edema: no edema noted Arm (L), no edema noted Arm (R), no edema noted Leg (L), no edema noted Leg (R), no edema noted Pedal (L), no edema noted Pedal (R), no edema noted Generalized Neurologic: motor weakness Skin: normal pigmentation, warm/dry Naun Geiger DO Jul 23, 2018 08:55
--- NOTE | 2018-07-23 09:21 | General Progress Note ---
Assessment/Plan Assessment/Plan #. Anemia of chronic disease -- patient with ongoing kidney damage, cr is worse now --> anemia panel has been reviewed. Ferritin at 214, TIBC at 214 --> nephrology is following, appreciate recs --> continue on epogen --> transfuse if hgb is <7 --> hemolysis w/u has been reviewed and none noted --> trend hgb 7.7-->8.5-->8.1-->8.6 #. Coagulopathy with elevated inr on admission --> likely malnutrition related, now inr better --> trend is any bleeding diathesis is noted # Acute versus chronic renal failure on ckd. As per renal etiology of acute renal failure is cardiorenal syndrome, prerenal azotemia versus unstable --> bp to improve on current meds --> appreciate renal recs #. CHF but at this point the patient seems to be euvolemic --> per cardiology #. 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 --> as per renal recs #. Uncontrolled hypertension. --> controlled Greatly appreciate consultation! Subjective Constitutional: Denies: no symptoms, chills, diaphoresis, fever, malaise, weakness, other HEENT: Denies: no symptoms, eye pain, blurred vision, tearing, double vision, ear pain, ear discharge, nose pain, nose congestion, throat pain, throat swelling, mouth pain, mouth swelling, other Respiratory: Denies: no symptoms, cough, orthopnea, shortness of breath, SOB with excertion, SOB at rest, sputum, stridor, wheezing, other Gastrointestinal/Abdominal: Denies: no symptoms, abdomen distended, abdominal pain, black stools, tarry stools, blood in stool, constipated, diarrhea, difficulty swallowing, nausea, poor appetite, poor fluid intake, rectal bleeding , vomiting, other Neurologic/Psychiatric: Denies: no symptoms, anxiety, depressed, emotional problems, headache, numbness, paresthesia, pre-existing deficit, seizure, tingling, tremors, weakness, other Endocrine: Denies: no symptoms, excessive sweating, flushing, intolerance to cold, intolerance to heat, increased hunger, increased thirst, increased urine, unexplained weight gain, unexplained weight loss, other Hematologic/Lymphatic: Denies: no symptoms, anemia, easy bleeding, easy bruising, other Allergies: Coded Allergies: LISINOPRIL (Verified Allergy, Unknown, 07/16/18) LOSARTAN (Verified Allergy, Unknown, 07/16/18) All Systems: reviewed and negative except above Subjective Pt awake and alert. No acute events. H/H stable. no bleeding, potential dc shortly Objective Last 24 Hour Vital Signs Date Time Temp Pulse Resp B/P (MAP) Pulse Ox O2 Delivery O2 Flow Rate FiO2 07/23/18 08:48 77 155/65 07/23/18 08:48 77 155/65 07/23/18 08:08 77 18 98 Room Air 07/23/18 07:58 78 18 95 Room Air 21 07/23/18 07:56 78 18 Room Air 21 07/23/18 05:17 155/65 07/23/18 04:00 98.7 70 20 155/65 (95) 95 07/23/18 00:00 99.0 69 18 143/56 (85) 98 07/22/18 22:05 132/65 07/22/18 21:35 98.7 69 20 132/65 (87) 97 07/22/18 21:14 69 132/65 07/22/18 21:00 Room Air Room Air 07/22/18 20:00 98.7 69 20 132/65 (87) 97 07/22/18 18:04 98.5 07/22/18 16:00 98.7 68 16 130/78 (95) 100 07/22/18 13:26 152/63 07/22/18 12:00 98.5 71 15 152/63 (92) 100 07/22/18 09:23 98.4 Intake and Output 07/22/18 07/23/18 19:00 07:00 Intake Total 500 ml 240 ml Balance 500 ml 240 ml Intake Oral 500 ml 240 ml # Voids 2 Laboratory Tests 07/23/18 06:45: White Blood Count 7.5, Red Blood Count 2.71L, Hemoglobin 8.6L, Hematocrit 27.2L , Mean Corpuscular Volume 100H, Mean Corpuscular Hemoglobin 31.8H, Mean Corpuscular Hemoglobin Concent 31.7L, Red Cell Distribution Width 13.3, Platelet Count 199, Mean Platelet Volume 7.2, Neutrophils (%) (Auto) 77.3H, Lymphocytes (%) (Auto) 13.6L, Monocytes (%) (Auto) 5.7, Eosinophils (%) (Auto) 2.8, Basophils (%) (Auto) 0.6, Sodium Level 141, Potassium Level 5.3H, Chloride Level 110H, Carbon Dioxide Level 20L, Anion Gap 11, Blood Urea Nitrogen 81H, Creatinine 3.3H, Estimat Glomerular Filtration Rate 17.6, Glucose Level 153H, Calcium Level 8.5 Height (Feet): 5 Height (Inches): 2.00 Weight (Pounds): 179 Objective VITAL SIGNS: have been reviewed HEAD AND NECK: No JVP. No LAD. No thyromegaly. Extraocular movements intact. perrl LUNGS: Decreased breathing sounds on both sides. CARDIAC: Regular rate and rhythm. S1-S2. No murmur. No rub. ABDOMEN: Soft, nontender, and nondistended. EXTREMITIES: 1+ edema. No clubbing. No cyanosis. Amandeep Howell MD Jul 23, 2018 09:21
[2018-07-23 12:00] VITALS: BP 147/69
[2018-07-23 16:06] VITALS: BP 152/60
[2018-07-23 20:00] VITALS: BP 162/69
[2018-07-23] MEDS ORDERED: Sodium Polystyrene Sulfonate 15gm Powder ORAL SCH (20:15)
[2018-07-23] MEDS: Atorvastatin 80mg tab ORAL SCH (20:21)
--- NOTE | 2018-07-23 22:26 | Nephrology Progress Note ---
Assessment/Plan Assessment 1. Acute versus chronic renal failure in setting of solitary kidney 2. Chronic kidney disease, most likely due to diabetic nephropathy since the patient has some degree of diabetic neuropathy. 3. History of congestive heart failure, but at this point the patient seems to be euvolemic. 4. Severe anemia or anemia of chronic kidney disease. 5. 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 6. Uncontrolled hypertension. Plan low k diet give kayexlate monitoring renal function avoid NSAID replace electrolyte replace electrolyte as need it Subjective Subjective alert awake no complaints Objective Objective Last 24 Hour Vital Signs Date Time Temp Pulse Resp B/P (MAP) Pulse Ox O2 Delivery O2 Flow Rate FiO2 07/23/18 21:48 155/64 07/23/18 21:00 Room Air Room Air 07/23/18 20:22 74 162/69 07/23/18 20:00 98.6 74 19 162/69 (100) 96 07/23/18 16:06 97.9 69 18 152/60 (90) 96 07/23/18 14:11 97.9 07/23/18 13:40 149/64 07/23/18 12:00 98.4 66 18 147/69 (95) 98 07/23/18 09:00 Room Air Room Air 07/23/18 08:48 77 155/65 07/23/18 08:48 77 155/65 07/23/18 08:08 77 18 98 Room Air 07/23/18 08:00 98.8 72 18 149/68 (95) 98 07/23/18 07:58 78 18 95 Room Air 21 07/23/18 07:56 78 18 Room Air 21 07/23/18 05:17 155/65 07/23/18 04:00 98.7 70 20 155/65 (95) 95 07/23/18 00:00 99.0 69 18 143/56 (85) 98 Intake and Output 07/22/18 07/23/18 19:00 07:00 Intake Total 500 ml 240 ml Balance 500 ml 240 ml Intake Oral 500 ml 240 ml # Voids 2 Laboratory Tests 07/23/18 06:45: White Blood Count 7.5, Red Blood Count 2.71L, Hemoglobin 8.6L, Hematocrit 27.2L , Mean Corpuscular Volume 100H, Mean Corpuscular Hemoglobin 31.8H, Mean Corpuscular Hemoglobin Concent 31.7L, Red Cell Distribution Width 13.3, Platelet Count 199, Mean Platelet Volume 7.2, Neutrophils (%) (Auto) 77.3H, Lymphocytes (%) (Auto) 13.6L, Monocytes (%) (Auto) 5.7, Eosinophils (%) (Auto) 2.8, Basophils (%) (Auto) 0.6, Sodium Level 141, Potassium Level 5.3H, Chloride Level 110H, Carbon Dioxide Level 20L, Anion Gap 11, Blood Urea Nitrogen 81H, Creatinine 3.3H, Estimat Glomerular Filtration Rate 17.6, Glucose Level 153H, Calcium Level 8.5 Height (Feet): 5 Height (Inches): 2.00 Weight (Pounds): 179 Objective HEAD AND NECK: No JVP. No LAD. No thyromegaly. Extraocular movements intact. Pupils are reactive to light and accommodation. LUNGS: Decreased breathing sounds on both sides. CARDIAC: Regular rate and rhythm. S1-S2. No murmur. No rub. ABDOMEN: Soft, nontender, and nondistended. EXTREMITIES: 1+ edema. No clubbing. No cyanosis. Nabila Park MD Jul 23, 2018 22:26
[2018-07-24] VITALS: BP 148/61
[2018-07-24 04:00] VITALS: BP 144/82
[2018-07-24] MEDS: HydrALAZINE 50mg tab ORAL SCH (06:23)
[2018-07-24] MEDS: NovoLOG Insulin Flexpen SUBQ SCH ×2 (06:25→12:02)
[2018-07-24 06:32] LABS: BASOPHILS % (AUTO) 0.4 % (0.0-2.0); EOSINOPHILS % (AUTO) 4.3 % (0.0-3.0); HEMATOCRIT 27.8 % (37.0-47.0); HEMOGLOBIN 8.8 G/DL (12.0-16.0); LYMPHOCYTES % (AUTO) 21.4 % (20.0-45.0); MEAN CORPUSCULAR VOLUME 101 FL (80-99); MONOCYTES % (AUTO) 7.2 % (1.0-10.0); NEUTROPHILS % (AUTO) 66.6 % (45.0-75.0); PLATELET COUNT 190 K/UL (150-450); RED BLOOD COUNT 2.77 M/UL (4.20-5.40); WHITE BLOOD COUNT 5.5 K/UL (4.8-10.8)
[2018-07-24 07:01] LABS: ANION GAP 10 mmol/L (5-15); BLOOD UREA NITROGEN 75 mg/dL (7-18); CALCIUM 8.4 MG/DL (8.5-10.1); CARBON DIOXIDE 22 MMOL/L (21-32); CHLORIDE 109 MMOL/L (98-107); CREATININE 3.2 MG/DL (0.55-1.30); POTASSIUM 4.4 MMOL/L (3.5-5.1); SODIUM 141 MMOL/L (136-145)
[2018-07-24 08:00] VITALS: BP 156/68
[2018-07-24] MEDS: Carvedilol 12.5mg tab ORAL SCH (09:51)
[2018-07-24] MEDS: Aspirin Baby 81mg ORAL SCH (09:51)
--- NOTE | 2018-07-24 10:45 | GI Progress Note ---
Assessment/Plan Problems: (1) Constipation ICD Codes: K59.00 - Constipation, unspecified SNOMED: 62863825 (2) Abdominal pain ICD Codes: R10.9 - Unspecified abdominal pain SNOMED: 21328548 (3) Anemia ICD Codes: D64.9 - Anemia, unspecified SNOMED: 734630644 Status: stable Status Narrative Discussed with Dr. Yarbrough. Assessment/Plan OB stool negative stable H&H fu pulmonary recs monitor H&H, prn transfusions bowel regime ppi fu labs dc planning outpatient GI procedures The patient was seen and examined at bedside and all new and available data was reviewed in the patients chart. I agree with the above findings, impression and plan. (Patient seen earlier today. Signature stamp does not reflect patient encounter time.). - Marco Antonio Yarbrough MD Subjective Gastrointestinal/Abdominal: Reports: no symptoms Subjective Constipation resolved Denies any epigastric pain Tolerating diet Objective Last 24 Hour Vital Signs Date Time Temp Pulse Resp B/P (MAP) Pulse Ox O2 Delivery O2 Flow Rate FiO2 07/24/18 09:51 87 156/68 07/24/18 09:51 87 156/68 07/24/18 08:00 87 19 Room Air 21 07/24/18 08:00 98.4 69 18 156/68 (97) 98 07/24/18 06:23 144/82 07/24/18 04:00 98.8 89 18 144/82 (102) 96 07/24/18 00:00 99.1 75 18 148/61 (90) 98 07/23/18 21:48 155/64 07/23/18 21:00 Room Air Room Air 07/23/18 20:22 74 162/69 07/23/18 20:00 70 18 Room Air 21 07/23/18 20:00 98.6 74 19 162/69 (100) 96 07/23/18 16:06 97.9 69 18 152/60 (90) 96 07/23/18 14:11 97.9 07/23/18 13:40 149/64 07/23/18 12:00 98.4 66 18 147/69 (95) 98 Intake and Output 07/23/18 07/24/18 19:00 07:00 Intake Total 480 ml 300 ml Output Total 500 ml Balance -20 ml 300 ml Intake Oral 480 ml 300 ml Output Urine Total 500 ml # Voids 2 Laboratory Tests Test 07/24/18 05:00 White Blood Count 5.5 K/UL (4.8-10.8) Red Blood Count 2.77 M/UL (4.20-5.40) L Hemoglobin 8.8 G/DL (12.0-16.0) L Hematocrit 27.8 % (37.0-47.0) L Mean Corpuscular Volume 101 FL (80-99) H Mean Corpuscular Hemoglobin 31.8 PG (27.0-31.0) H Mean Corpuscular Hemoglobin Concent 31.6 G/DL (32.0-36.0) L Red Cell Distribution Width 13.0 % (11.6-14.8) Platelet Count 190 K/UL (150-450) Mean Platelet Volume 7.4 FL (6.5-10.1) Neutrophils (%) (Auto) 66.6 % (45.0-75.0) Lymphocytes (%) (Auto) 21.4 % (20.0-45.0) Monocytes (%) (Auto) 7.2 % (1.0-10.0) Eosinophils (%) (Auto) 4.3 % (0.0-3.0) H Basophils (%) (Auto) 0.4 % (0.0-2.0) Sodium Level 141 MMOL/L (136-145) Potassium Level 4.4 MMOL/L (3.5-5.1) Chloride Level 109 MMOL/L (98-107) H Carbon Dioxide Level 22 MMOL/L (21-32) Anion Gap 10 mmol/L (5-15) Blood Urea Nitrogen 75 mg/dL (7-18) H Creatinine 3.2 MG/DL (0.55-1.30) H Estimat Glomerular Filtration Rate 18.3 mL/min (>60) Glucose Level 181 MG/DL (74-106) H Calcium Level 8.4 MG/DL (8.5-10.1) L Height (Feet): 5 Height (Inches): 2.00 Weight (Pounds): 182 General Appearance: WD/WN, no apparent distress, alert Cardiovascular: normal rate Respiratory/Chest: normal breath sounds, no respiratory distress Abdominal Exam: normal bowel sounds, non tender, soft Extremities: normal range of motion, non-tender Sosa,Tracie-Dc [employer] Jul 24, 2018 10:45
[2018-07-24] MEDS: Morphine Sulfate 4mg/ml Inj (IV/IM USE ONLY) IVP PRN (11:55)
[2018-07-24 12:00] VITALS: BP 160/70
--- NOTE | 2018-07-24 12:04 | Infectious Diseases Prog Note ---
Assessment/Plan Assessment/Plan Assessment/Plan Probable PNA, s/p Rx -CXR: Reduced lung volumes with bibasilar infiltrates. -influenza sc neg -Bcx neg Afebrile No leukocytosis Pyuria, mild -u/a wbc 5-10,nit neg leuk +1,. many sq cells Acute CHF exacerbation MICHELLE asthma HTN DM CVA w/ L side weakness [facility] resident Plan: -Continue to monitor off abx as clinically stable -07/20 SP Levaquin #5 -07/15 SP Unasyn x1 -Monitor CBC/C MP, temperatures -Aspiration precautions -Cards, Renal f/u Thank you for this consultation. Will continue to follow along with you. Subjective Allergies: Coded Allergies: LISINOPRIL (Verified Allergy, Unknown, 07/16/18) LOSARTAN (Verified Allergy, Unknown, 07/16/18) Subjective afebrile at RA now off abx Objective Vital Signs Last 24 Hour Vital Signs Date Time Temp Pulse Resp B/P (MAP) Pulse Ox O2 Delivery O2 Flow Rate FiO2 07/24/18 09:51 87 156/68 07/24/18 09:51 87 156/68 07/24/18 09:00 Room Air Room Air 07/24/18 08:00 87 19 Room Air 21 07/24/18 08:00 98.4 69 18 156/68 (97) 98 07/24/18 06:23 144/82 07/24/18 04:00 98.8 89 18 144/82 (102) 96 07/24/18 00:00 99.1 75 18 148/61 (90) 98 07/23/18 21:48 155/64 07/23/18 21:00 Room Air Room Air 07/23/18 20:22 74 162/69 07/23/18 20:00 70 18 Room Air 21 07/23/18 20:00 98.6 74 19 162/69 (100) 96 07/23/18 16:06 97.9 69 18 152/60 (90) 96 07/23/18 14:11 97.9 07/23/18 13:40 149/64 Height (Feet): 5 Height (Inches): 2.00 Weight (Pounds): 182 Objective GENERAL: Calm in bed, oriented x3, slightly distress secondary to short of breath. CARDIOVASCULAR: No murmur. LUNGS: Poor exchange. ABDOMEN: Bowel sounds distant. EXTREMITIES: No cyanosis, clubbing, or edema. NEUROLOGIC: The patient moves all extremities, slightly weak. Laboratory Tests Test 07/24/18 05:00 White Blood Count 5.5 K/UL (4.8-10.8) Red Blood Count 2.77 M/UL (4.20-5.40) L Hemoglobin 8.8 G/DL (12.0-16.0) L Hematocrit 27.8 % (37.0-47.0) L Mean Corpuscular Volume 101 FL (80-99) H Mean Corpuscular Hemoglobin 31.8 PG (27.0-31.0) H Mean Corpuscular Hemoglobin Concent 31.6 G/DL (32.0-36.0) L Red Cell Distribution Width 13.0 % (11.6-14.8) Platelet Count 190 K/UL (150-450) Mean Platelet Volume 7.4 FL (6.5-10.1) Neutrophils (%) (Auto) 66.6 % (45.0-75.0) Lymphocytes (%) (Auto) 21.4 % (20.0-45.0) Monocytes (%) (Auto) 7.2 % (1.0-10.0) Eosinophils (%) (Auto) 4.3 % (0.0-3.0) H Basophils (%) (Auto) 0.4 % (0.0-2.0) Sodium Level 141 MMOL/L (136-145) Potassium Level 4.4 MMOL/L (3.5-5.1) Chloride Level 109 MMOL/L (98-107) H Carbon Dioxide Level 22 MMOL/L (21-32) Anion Gap 10 mmol/L (5-15) Blood Urea Nitrogen 75 mg/dL (7-18) H Creatinine 3.2 MG/DL (0.55-1.30) H Estimat Glomerular Filtration Rate 18.3 mL/min (>60) Glucose Level 181 MG/DL (74-106) H Calcium Level 8.4 MG/DL (8.5-10.1) L Current Medications Medications (Trade) Dose Ordered Sig/Zara Route PRN Reason Start Time Stop Time Status Last Admin Dose Admin Acetaminophen (Tylenol) 650 mg Q4H PRN ORAL T>100.5 07/15/18 15:30 08/14/18 15:29 Al Hydroxide/Mg Hydroxide (Mylanta II) 30 ml Q6H PRN ORAL dyspepsia 07/15/18 15:30 08/14/18 15:29 Albuterol/ Ipratropium (Albuterol/ Ipratropium) 3 ml Q4H PRN HHN Shortness of Breath 07/23/18 07:45 07/28/18 07:44 07/23/18 07:58 Amlodipine Besylate (Norvasc) 10 mg DAILY ORAL 07/16/18 09:00 08/15/18 08:59 07/24/18 09:51 Aspirin (ASA) 81 mg DAILY ORAL 07/16/18 09:00 08/15/18 08:59 07/24/18 09:51 Atorvastatin Calcium (Lipitor) 80 mg BEDTIME ORAL 07/16/18 21:00 08/15/18 20:59 07/23/18 20:21 Carvedilol (Coreg) 37.5 mg EVERY 12 HOURS ORAL 07/16/18 09:00 08/15/18 08:59 07/24/18 09:51 Clonidine HCl (Catapres Tab) 0.1 mg Q6H PRN ORAL SBP > 160mmHg 07/15/18 21:30 08/14/18 21:29 07/15/18 21:44 Dextrose (Dextrose 50%) 25 ml Q30M PRN IV Hypoglycemia 07/15/18 15:30 08/14/18 15:26 Dextrose (Dextrose 50%) 50 ml Q30M PRN IV hypoglycemia 07/15/18 15:30 08/14/18 15:29 Epoetin Yordan (Procrit (for non ESRD use)) 4,000 units 2XW@2100 SUBQ 07/17/18 21:00 08/16/18 20:59 07/20/18 20:53 Gabapentin (Neurontin) 800 mg THREE TIMES A DAY ORAL 07/15/18 20:00 08/14/18 19:59 07/24/18 09:52 Guaifenesin (Robitussin) 100 mg Q4H PRN ORAL For Cough 07/17/18 09:30 08/16/18 09:29 Hydralazine HCl (Apresoline) 100 mg Q8HR ORAL 07/16/18 14:00 08/15/18 13:59 07/24/18 06:23 Insulin Aspart (NovoLOG) BEFORE MEALS AND HS SUBQ 07/15/18 22:30 08/14/18 22:29 07/24/18 06:25 Mirtazapine (Remeron) 7.5 mg BEDTIME ORAL 07/15/18 22:00 08/15/18 20:59 07/23/18 20:20 Morphine Sulfate (Morphine Sulfate) 2 mg Q4H PRN IVP BREAKTHRU PAIN 07/21/18 17:00 07/28/18 16:59 07/24/18 11:55 Ondansetron HCl (Zofran) 4 mg Q6H PRN IVP Nausea & Vomiting 07/15/18 15:30 08/14/18 15:29 Oxycodone/ Acetaminophen (Percocet 10/325) 1 tab Q4H PRN ORAL Severe Pain (Pain Scale 7-10) 07/23/18 08:30 07/30/18 08:29 07/24/18 03:41 Polyethylene Glycol (Miralax) 17 gm HSPRN PRN ORAL Constipation 07/15/18 21:00 08/14/18 20:59 Juliane Mcdonald M.D. Jul 24, 2018 12:03
[2018-07-24] MEDS: Albuterol/Ipratropium 3ml neb HHN PRN (12:12)
--- NOTE | 2018-07-24 18:53 | General Progress Note ---
Assessment/Plan Assessment/Plan #. Anemia of chronic disease -- patient with ongoing kidney damage, cr is worse now --> anemia panel has been reviewed. Ferritin at 214, TIBC at 214 --> nephrology is following, appreciate recs --> continue on epogen --> transfuse if hgb is <7 --> hemolysis w/u has been reviewed and none noted --> trend hgb 7.7-->8.5-->8.1-->8.6-->8.8 #. Coagulopathy with elevated inr on admission --> likely malnutrition related, now inr better --> trend is any bleeding diathesis is noted # Acute versus chronic renal failure on ckd. As per renal etiology of acute renal failure is cardiorenal syndrome, prerenal azotemia versus unstable --> bp to improve on current meds --> appreciate renal recs #. CHF but at this point the patient seems to be euvolemic --> per cardiology --> diuresis as needed #. 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 --> as per renal recs #. Uncontrolled hypertension. --> controlled Greatly appreciate consultation! Subjective Constitutional: Denies: no symptoms, chills, diaphoresis, fever, malaise, weakness, other HEENT: Denies: no symptoms, eye pain, blurred vision, tearing, double vision, ear pain, ear discharge, nose pain, nose congestion, throat pain, throat swelling, mouth pain, mouth swelling, other Cardiovascular: Denies: no symptoms, chest pain, edema, irregular heart rate, lightheadedness, palpitations, syncope, other Respiratory: Denies: no symptoms, cough, orthopnea, shortness of breath, SOB with excertion, SOB at rest, sputum, stridor, wheezing, other Gastrointestinal/Abdominal: Denies: no symptoms, abdomen distended, abdominal pain, black stools, tarry stools, blood in stool, constipated, diarrhea, difficulty swallowing, nausea, poor appetite, poor fluid intake, rectal bleeding , vomiting, other Genitourinary: Denies: no symptoms, burning, discharge, frequency, flank pain, hematuria, incontinence, pain, urgency, other Neurologic/Psychiatric: Denies: no symptoms, anxiety, depressed, emotional problems, headache, numbness, paresthesia, pre-existing deficit, seizure, tingling, tremors, weakness, other Endocrine: Denies: no symptoms, excessive sweating, flushing, intolerance to cold, intolerance to heat, increased hunger, increased thirst, increased urine, unexplained weight gain, unexplained weight loss, other Hematologic/Lymphatic: Denies: no symptoms, anemia, easy bleeding, easy bruising, other Allergies: Coded Allergies: LISINOPRIL (Verified Allergy, Unknown, 07/16/18) LOSARTAN (Verified Allergy, Unknown, 07/16/18) Subjective Pt awake and alert. No acute events. H/H stable. no bleeding Objective Last 24 Hour Vital Signs Date Time Temp Pulse Resp B/P (MAP) Pulse Ox O2 Delivery O2 Flow Rate FiO2 07/24/18 12:25 99.0 07/24/18 12:23 89 23 98 Room Air 21 07/24/18 12:12 87 22 96 Room Air 21 07/24/18 12:00 99.0 77 19 160/70 (100) 94 07/24/18 09:51 87 156/68 07/24/18 09:51 87 156/68 07/24/18 09:00 Room Air Room Air 07/24/18 08:00 87 19 Room Air 21 07/24/18 08:00 98.4 69 18 156/68 (97) 98 07/24/18 06:23 144/82 07/24/18 04:00 98.8 89 18 144/82 (102) 96 07/24/18 00:00 99.1 75 18 148/61 (90) 98 07/23/18 21:48 155/64 07/23/18 21:00 Room Air Room Air 07/23/18 20:22 74 162/69 07/23/18 20:00 70 18 Room Air 21 07/23/18 20:00 98.6 74 19 162/69 (100) 96 Intake and Output 07/23/18 07/24/18 18:59 06:59 Intake Total 480 ml 300 ml Output Total 500 ml Balance -20 ml 300 ml Intake Oral 480 ml 300 ml Output Urine Total 500 ml # Voids 2 Laboratory Tests 07/24/18 05:00: White Blood Count 5.5, Red Blood Count 2.77L, Hemoglobin 8.8L, Hematocrit 27.8L , Mean Corpuscular Volume 101H, Mean Corpuscular Hemoglobin 31.8H, Mean Corpuscular Hemoglobin Concent 31.6L, Red Cell Distribution Width 13.0, Platelet Count 190, Mean Platelet Volume 7.4, Neutrophils (%) (Auto) 66.6, Lymphocytes (%) (Auto) 21.4, Monocytes (%) (Auto) 7.2, Eosinophils (%) (Auto) 4.3H, Basophils (%) (Auto) 0.4, Sodium Level 141, Potassium Level 4.4, Chloride Level 109H, Carbon Dioxide Level 22, Anion Gap 10, Blood Urea Nitrogen 75H, Creatinine 3.2H, Estimat Glomerular Filtration Rate 18.3, Glucose Level 181H, Calcium Level 8.4L Height (Feet): 5 Height (Inches): 2.00 Weight (Pounds): 182 General Appearance: lethargic EENT: TMs normal Neck: supple Cardiovascular: regular rhythm Respiratory/Chest: lungs clear Abdomen: soft Extremities: non-tender Edema: 1+ Leg (L), 1+ Leg (R) Edema: mild edema Neurologic: abnormal gait Skin: warm/dry Objective VITAL SIGNS: have been reviewed HEAD AND NECK: No JVP. No LAD. No thyromegaly. Extraocular movements intact. perrl LUNGS: Decreased breathing sounds on both sides. CARDIAC: Regular rate and rhythm. S1-S2. No murmur. No rub. ABDOMEN: Soft, nontender, and nondistended. EXTREMITIES: 1+ edema. No clubbing. No cyanosis. Amandeep Howell MD Jul 24, 2018 18:53
[2018-07-25] MEDS ORDERED: UNOBMED (02:52)
--- NOTE | 2018-07-26 07:56 | Cardiology Report ---
APPROVED REPORT EXAM: Two-dimensional and M-mode echocardiogram with Doppler and color Doppler. INDICATION Cardiomyopathy M-Mode DIMENSIONS IVSd1.3 (0.7-1.1cm)Left Atrium (MM)4.0 (1.6-4.0cm) LVDd4.7 (3.5-5.6cm)Aortic Root2.4 (2.0-3.7cm) PWd1.0 (0.7-1.1cm)Aortic Cusp Exc.1.6 (1.5-2.0cm) LVDs2.8 (2.5-4.0cm) PWs1.6 cm Normal left ventricular chamber size, systolic function and wall motion. Left ventricular ejection fraction estimated to be 60 %. Mild left ventricular hypertrophy. Possible small posterior pericardial effusion. All other cardiac chamber sizes are within normal limits. Mild focal aortic valve sclerosis with adequate cusp excursion. Mildly thickened mitral valve leaflets with normal excursion. Mild mitral annulus and aortic root calcification. Normal pulmonic valve structure. Normal tricuspid valve structure. IVC dilated at 2.4 cm with physiological collapse, suggestive of increased RA pressure. A color flow and spectral Doppler study was performed and revealed: No aortic insufficiency. Mild to moderate mitral regurgitation. Normal left ventricular diastolic function. Mild tricuspid regurgitation. Tricuspid systolic velocities suggests peak right ventricular systolic pressure of 54 mmHg, consistent with moderate pulmonary hypertension. Mild pulmonic regurgitation present.
--- NOTE | 2018-07-26 11:05 | Discharge Summary ---
Discharge Summary Discharge Summary _ Recall DATE OF ADMISSION: 07/15/2018 DATE OF DISCHARGE: 07/24/2018 DISCHARGED BY: Dr. Geiger REASON FOR ADMISSION: 53 years old female with past medical history of hypertension, diabetes, asthma , congestive heart failure, CVA with left side weakness , presented due to increased difficulty breathing . Patient apparently noncompliant with medication regimen. Patient was hypoxic and required initially placement on 7 L of oxygen via nasal cannula . Patient reported nonproductive cough and chest tightness. Workup revealed leukocytosis, hemoglobin 8.8, hematocrit 27.6. Chemistry revealed evidence of renal failure with BUN 70 creatinine 3.3. Glucose 172. Troponin negative. ECG revealed sinus rhythm, no acute ischemic changes. Urinalysis showed +4 protein, pyuria +1 leukocyte esterase and only few bacteria. Chest x-ray revealed reduced lung volumes with bibasilar infiltrates. Patient admitted with diagnoses of renal failure, shortness of breath , possibly due to asthma exacerbation versus congestive heart failure exacerbation versus pneumonia, possible urinary tract infection, anemia, hypertension, diabetes. CONSULTANTS: pulmonary Dr. Godinez ID specialist Dr. Mariano GI specialist Dr. Yarbrough shuttle final inspector Dr. Dr. Park contact lens blocker/oncologist Dr. Howell [facility]: Patient admitted. Power System Operator closely followed. Chest x-ray was not impressive. VQ scan was ordered to rule out pulmonary emboli , since patient had severe dyspnea. VQ scan revealed essentially negative perfusion scan. Although no ventilation scan was performed , still consider very low probability for pulmonary embolism. Venous Duplex of bilateral lower extremity revealed no evidence of acute DVT. Echocardiogram revealed preserved ejection fraction of 60%. No wall motion abnormality. Mild left ventricular hypertrophy. Right ventricular systolic pressure of 54, consistent with moderate pulmonary hypertension. Mild to moderate mitral regurgitation. Supplemental oxygen provided as needed and titrated to keep pulse oximetry above 92%. Pulmonary toilet provided as needed. Infectious disease specialist clsoely followed. Patient completed empiric treatment for pneumonia. Blood cultures were negative. Influenza screen test was negative. Patient afebrile, no leukocytosis. Patient noted to have mild pyuria, but nitrate was negative, occasional bacteria and many squamous cells. No evidence of UTI. ID specialist recommended to monitor patient off antibiotics . Strict aspiration precautions were maintained. CT of the chest revealed hepatosplenomegaly. Slightly edematous gallbladder wall. Marked cardiomegaly and bilateral pleural effusion. Pulmonary interstitial thickening, diffuse faint ground glass opacities, scattered slightly denser parenchymal opacities bilaterally. Finding most likely represent pulmonary edema. Echocardiogram revealed preserved ejection fraction 60%. No wall motion abnormality. Mild left ventricular hypertrophy. Right ventricular systolic pressure of 54 consistent with moderate pulmonary hypertension. Mild to moderate mitral regurgitation and mild tricuspid regurgitation. Pro BNP 7274. Volumes were closely monitored. Patient received 1 dose of diuretic. ASA and statin were continued. Lipid panel was stable. Blood pressure was managed with calcium channel aleena, beta aleena and remained stable. Neurontin continued. Blood sugar was managed with sliding scale of insulin as needed. HgA1c stable. Nephrology consult was requested. Renal ultrasound revealed non-identification of the left kidney. Renal parameters and electrolytes were closely monitored. Electrolytes were corrected as needed. Nephrotoxics were avoided. According to shuttle final inspector , patient had chronic kidney disease , most likely due to diabetic nephropathy in the setting of solitary kidney. Rouge Presser recommended to avoid nonsteroidal anti-inflammatory medications . Anemia workup was consistent with anemia of chronic disease/ anemia of chronic kidney disease. Patient was on Epogen. Patient was given IV Venofer. Hemoglobin and hematocrit were closely monitored with goal to keep hemoglobin above 7. Hemoglobin and hematocrit appeared to be at the baseline. Prior to discharge hemoglobin 8.8 and hematocrit 27.8. Stool for occult blood was negative. HIV test was negative. GI specialist closely followed. Bowel regimen instituted. GI prophylaxis with PPI provided. GI specialist recommended outpatient GI procedure. Patient clinically stabilized and was ready for transfer back home with home health. Pulse oximetry was stable on room air upon discharge. Patient was counseled on compliance with medication regimen. 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 DISCHARGE INSTRUCTIONS: Patient was discharged home with home health services. Follow up with primary care provider in one week. I have been assigned to dictate discharge summary for this account. I was not involved in the patient's management. Sandra Aguillon NP Jul 26, 2018 11:05
== END 2018-07-24 12:41 | disposition home health service (06) | DRG 139 ==
LOC: EDBD 12:18 → EMR 13:00 → EDBEDREQ 13:51 → 2E 19:09 → 3E 07-19 13:04
DX: J18.9 Pneumonia, unspecified organism (principal); J96.00 Acute respiratory failure, unspecified whether with hypoxia or hypercapnia; N17.9 Acute kidney failure, unspecified; I13.0 Hypertensive heart and chronic kidney disease with heart failure and stage 1 through stage 4 chronic kidney disease, or unspecified chronic kidney disease; E11.22 Type 2 diabetes mellitus with diabetic chronic kidney disease; I50.9 Heart failure, unspecified; E11.40 Type 2 diabetes mellitus with diabetic neuropathy, unspecified; I27.20 Pulmonary hypertension, unspecified; N18.9 Chronic kidney disease, unspecified; Z79.82 Long term (current) use of aspirin; N39.0 Urinary tract infection, site not specified; I69.354 Hemiplegia and hemiparesis following cerebral infarction affecting left non-dominant side; D63.1 Anemia in chronic kidney disease; K59.00 Constipation, unspecified; Z79.4 Long term (current) use of insulin; Z88.8 Allergy status to other drugs, medicaments and biological substances; Z90.5 Acquired absence of kidney; R79.1 Abnormal coagulation profile; I34.0 Nonrheumatic mitral (valve) insufficiency; I36.1 Nonrheumatic tricuspid (valve) insufficiency
CPT/HCPCS: 36415; 71045; 71250; 76770; 78580; 80048; 80053; 80061; 81003; 82043; 82044; 82270; 82550; 82553; 82570; 82607; 82728; 82746; 82962; 83010; 83036; 83540; 83550; 83605; 83735; 83880; 84100; 84300; 84443; 84484; 85007; 85025; 85044; 85060; 85384; 85610; 85660; 85730; 86703; 86710; 87040; 89050; 93005; 93306; 93970; 94640; 94664; 94760; 96361; 96365; 96375; 97803; 99285; J1815; J7620

== ENCOUNTER 2018-07-25 02:10 | Inpatient (IN) | payer OTHER ==
[~2018-07-25] VITALS: Ht 157.5 cm; Wt 72.1 kg
[~2018-07-25 02:10] MED LIST changes: +ACETAMINOPHEN325 M1 ORAL; +AMLODIPINE BESY10 MG ORAL; +ASPIRIN81 MG ORAL; +ATIVAN0.5 MG ORAL; +ATORVASTATIN CA80 MG ORAL; +CALCIUM ACETAT667 M1 PO; +COLACE100 MG ORAL; +COREG12.5 MG ORAL; +DILAUDID 00.5 MG/0.1 IVP; +DULCOLAX10 MG RC; +FERROUS SULFAT325 MG ORAL; +FUROSEMIDE40 MG ORAL; +GABAPENTIN300 MG ORAL; +HEPARIN SO5000 UNIT2 SUBQ; +HUMALOG100 UNIT/4 SUBQ; +HYDRALAZINE HC100 MG ORAL; +ISORDIL40 M1 PO; +ISOSORBIDE DINIT5 MG ORAL; +MELATONIN10 M2 ORAL; +MELATONIN3 MG ORAL; +MIRALAX17 G2 ORAL; +MIRTAZAPINE15 MG ORAL; +MIRTAZAPINE7.5 MG ORAL; +MULTIVITAMINS1 EA13 ORAL; +NEURONTIN100 MG ORAL; +NITROSTAT0.4 M1 SL; +OXYCODONE HCL5 MG ORAL; +OXYCODONE-ACET1 EAC5 ORAL; +PLAVIX75 MG ORAL; +PROCRIT2000 UNIT/ SUBQ; +TRAZODONE HCL50 MG ORAL; +VENOFER100 MG/5 M IVP; +VITAMIN D22000 UNIT PO; +ZOFRAN 4 MG4 MG/2 ML IVP
--- NOTE | 2018-07-25 02:10 | NUR ---
ED Nurse Note: Patient presents with dyspnea and recent diagnosis of pneumonia. discharge post 1 day.
[2018-07-25 02:35] VITALS: BP 196/73
[2018-07-25 02:43] LABS: HEMATOCRIT 29.6 % (37.0-47.0); HEMOGLOBIN 9.6 G/DL (12.0-16.0); MEAN CORPUSCULAR VOLUME 98 FL (80-99); PLATELET COUNT 222 K/UL (150-450); RED BLOOD COUNT 3.02 M/UL (4.20-5.40); RED CELL DISTRIBUTION WIDTH 12.8 % (11.6-14.8); WHITE BLOOD COUNT 9.2 K/UL (4.8-10.8)
[2018-07-25] MEDS ORDERED: UNOBMED (02:52)
--- NOTE | 2018-07-25 02:53 | Emergency Room Report ---
History of Present Illness General Chief Complaint: Dyspnea/Respdistress Source: Patient, Medical Record Present Illness HPI Patient present with complaints of shortness of breath Reports that she was discharge yesterday with pneumonia Since she was home her breathing continued to worsen Also mild chest discomfort and heaviness Denies any vomiting or diarrhea she has had significantly decreased oral intake Denies any neck pain or photophobia Allergies: Coded Allergies: LISINOPRIL (Verified Allergy, Unknown, 07/16/18) LOSARTAN (Verified Allergy, Unknown, 07/16/18) Patient History Past Medical History: see triage record Pertinent Family History: none Last Menstrual Period: Menopause Reviewed Nursing Documentation: PMH: Agreed; PSxH: Agreed Nursing Documentation-PMH Hx Cardiac Problems: Yes - ACS Hx Hypertension: Yes Hx Diabetes: Yes Hx Neurological Problems: Yes Hx Cerebrovascular Accident: Yes - 01/2018 Hx Paralysis: Yes - Left side hemiparesis Hx Peripheral Neuropathy: Yes Hx Weakness: Yes - left side Review of Systems All Other Systems: negative except mentioned in HPI Physical Exam Vital Signs Date Time Temp Pulse Resp B/P (MAP) Pulse Ox O2 Delivery O2 Flow Rate FiO2 07/25/18 02:02 97.9 90 36 190/71 93 Room Air Sp02 EP Interpretation: reviewed, normal General Appearance: mild distress Head: normocephalic, atraumatic Eyes: bilateral eye PERRL, bilateral eye EOMI ENT: hearing grossly normal, normal pharynx Neck: full range of motion, supple Respiratory: no respiratory distress, no retraction, crackles - Both lower lobes Cardiovascular #1: regular rate, rhythm Gastrointestinal: non tender, soft Musculoskeletal: normal inspection Neurologic: alert, oriented x3 Skin: normal color, no rash Lymphatic: no adenopathy Medical Decision Making Diagnostic Impression: Primary Impression: Dyspnea Additional Impression: right sided effusion ER Course Patient is a fairly complex patient with multiple differential to consideration including but not limited to cardiac cardiopulmonary and vascular emergencies Patient had recent hospitalization X-ray at this time reveals worsening findings Patient's blood pressure is controlled Baseline blood work obtained and patient requires further inpatient care Labs Test 07/25/18 02:30 White Blood Count 9.2 K/UL (4.8-10.8) Red Blood Count 3.02 M/UL (4.20-5.40) Hemoglobin 9.6 G/DL (12.0-16.0) Hematocrit 29.6 % (37.0-47.0) Mean Corpuscular Volume 98 FL (80-99) Mean Corpuscular Hemoglobin 31.7 PG (27.0-31.0) Mean Corpuscular Hemoglobin Concent 32.4 G/DL (32.0-36.0) Red Cell Distribution Width 12.8 % (11.6-14.8) Platelet Count 222 K/UL (150-450) Mean Platelet Volume 7.1 FL (6.5-10.1) Neutrophils (%) (Auto) % (45.0-75.0) Lymphocytes (%) (Auto) % (20.0-45.0) Monocytes (%) (Auto) % (1.0-10.0) Eosinophils (%) (Auto) % (0.0-3.0) Basophils (%) (Auto) % (0.0-2.0) Sodium Level 139 MMOL/L (136-145) Potassium Level 5.7 MMOL/L (3.5-5.1) Chloride Level 108 MMOL/L (98-107) Carbon Dioxide Level 23 MMOL/L (21-32) Anion Gap 9 mmol/L (5-15) Blood Urea Nitrogen 66 mg/dL (7-18) Creatinine 2.8 MG/DL (0.55-1.30) Estimat Glomerular Filtration Rate 21.2 mL/min (>60) Glucose Level 203 MG/DL (74-106) Lactic Acid Level 0.80 mmol/L (0.4-2.0) Calcium Level 8.8 MG/DL (8.5-10.1) Total Bilirubin 0.5 MG/DL (0.2-1.0) Aspartate Amino Transf (AST/SGOT) 51 U/L (15-37) Alanine Aminotransferase (ALT/SGPT) 37 U/L (12-78) Alkaline Phosphatase 103 U/L (46-116) Total Creatine Kinase 514 U/L (26-308) Creatine Kinase MB 2.9 NG/ML (0.0-3.6) Creatine Kinase MB Relative Index 0.5 Troponin I 0.030 ng/mL (0.000-0.056) Pro-B-Type Natriuretic Peptide 8708 pg/mL (0-125) Total Protein 8.0 G/DL (6.4-8.2) Albumin 3.0 G/DL (3.4-5.0) Globulin 5.0 g/dL Albumin/Globulin Ratio 0.6 (1.0-2.7) Lipase 82 U/L (73-393) EKG Diagnostic Results Rate: normal Rhythm: NSR ST Segments: no acute changes Rhythm Strip Diag. Results EP Interpretation: yes Rate: 66 Rhythm: NSR, no PVC's, no ectopy Chest X-Ray Diagnostic Results Chest X-Ray Diagnostic Results : Chest X-Ray Ordered: Yes # of Views/Limited/Complete: 1 View Indication: Chest Pain EP Interpretation: Yes Interpretation: no pneumothorax, other - Bilateral congestion, cardiomegaly , no acute bony abnormalities Impression: Other - Cardiomegaly, congestion Electronically Signed by: Eligio Carranza DO Last Vital Signs Date Time Temp Pulse Resp B/P (MAP) Pulse Ox O2 Delivery O2 Flow Rate FiO2 07/25/18 02:35 90 36 Room Air 07/25/18 02:35 97.9 196/73 93 Status: improved Disposition: ADMITTED INPATIENT Condition: Serious Eligio Carranza DO Jul 25, 2018 02:53
[2018-07-25 02:54] LABS: ANION GAP 9 mmol/L (5-15); BLOOD UREA NITROGEN 66 mg/dL (7-18); CALCIUM 8.8 MG/DL (8.5-10.1); CARBON DIOXIDE 23 MMOL/L (21-32); CHLORIDE 108 MMOL/L (98-107); CREATININE 2.8 MG/DL (0.55-1.30); POTASSIUM 5.7 MMOL/L (3.5-5.1); SODIUM 139 MMOL/L (136-145)
[2018-07-25 03:07] LABS: ALANINE AMINOTRANSFERASE 37 U/L (12-78); ALBUMIN/GLOBULIN RATIO 0.6 (1.0-2.7); ALKALINE PHOSPHATASE 103 U/L (46-116); ASPARTATE AMINO TRANSFERASE 51 U/L (15-37); BILIRUBIN,TOTAL 0.5 MG/DL (0.2-1.0); CKMB 2.9 NG/ML (0.0-3.6); CREATINE KINASE 514 U/L (26-308)
--- NOTE | 2018-07-25 03:10 | NUR ---
ED Nurse Note: Patient sleeping comfortably, no S/S of acute distress.
--- NOTE | 2018-07-25 04:05 | NUR ---
ED Nurse Note: Patient is resting comfortably, vss. no S/S of acute distress.
[2018-07-25 04:06] VITALS: BP 177/77
--- NOTE | 2018-07-25 05:54 | NUR ---
ED Nurse Note: Patient cleared for transferred, patient refused swabs, A&Ox4, patient refused tylenol for pain, Report kevin to Joy RODRIGUEZ, dialysis chief equipment technician and RN accompanied patient to floor.
--- NOTE | 2018-07-25 05:59 | NUR ---
NURSE NOTES: Pt transferred to floor from ER. Pt belongings verified. monitoring coordinator applied. Pt is SR. Respirations are even and unlabored on 3 L NC. IV site is patent, intact, and saline locked. Bed is at lowest position, brakes engaged, siderails x2, bed alarm on, and call light within reach. Pt is in stable condition at this time; will continue to monitor.
--- NOTE | 2018-07-25 06:42 | NUR ---
NURSE NOTES: Left message with Dr. Edwards regarding admission orders; awaiting response. Addendum: 07/25/18 at 0700 by THOMAS BOOKRE RN Dr. Geiger
--- NOTE | 2018-07-25 06:55 | NUR ---
NURSE NOTES: Left second message with Dr. Edwards including pt's report of 05/17 chronic pain in her legs; awaiting response. Addendum: 07/25/18 at 0700 by THOMAS BOOKER RN Dr. Geiger
--- NOTE | 2018-07-25 07:00 | NUR ---
NURSE NOTES: received patient report from gabriela alvarenga. patient is on bed, asleep. no acute distress noted. comfortable. bed in low position. call light within reach. will continue to monitor and carry out plans.
--- NOTE | 2018-07-25 07:13 | NUR ---
HAND-OFF: Report given to JENNIFER Mora. Pt is in stable condition; plan of care endorsed.
[2018-07-25] MEDS ORDERED: Albuterol/Ipratropium 3ml neb HHN PRN (07:15)
[2018-07-25] MEDS ORDERED: Miralax 17gm pkt ORAL PRN (07:15)
[2018-07-25] MEDS ORDERED: Morphine Sulfate 2mg/ml Inj IVP PRN ×2 (07:15→11:15)
[2018-07-25] MEDS ORDERED: LORazepam 0.5mg tab ORAL PRN (07:15)
[2018-07-25 08:00] VITALS: BP 171/73
[2018-07-25] MEDS: Calcium Acetate 667mg Tab ORAL SCH ×3 (08:12→17:09)
[2018-07-25] MEDS: Carvedilol 12.5mg tab ORAL SCH ×2 (08:13→21:40)
[2018-07-25] MEDS: Heparin 5000 units/ml inj SUBQ SCH ×2 (08:15→20:18)
--- NOTE | 2018-07-25 09:23 | NUR ---
CASE MANAGEMENT:REVIEW 53 YR OLD FEMALE BIBA FROM HOME WAS DISCHARGED YESTERDAY DX PNEUMONIA SI: DYSPNEA 97.9 90 36 190/71 93% ON RA IS: IV CEFEPIME X1 IV VANCOMYCIN X1 BLOOD CX CHEST XRAY : TO TELEMETRY INTERQUAL CRITERIA MET
[2018-07-25] MEDS ORDERED: Cefepime HCl 2 GM in D5W 110 ML IV ONE (09:30)
[2018-07-25] MEDS ORDERED: Vancomycin 1.5 GM/D5W 250ML IVPB ONE (10:00)
[2018-07-25] MEDS ORDERED: oxyCODONE HCL/Acetaminophen 5/325mg ORAL PRN (10:15)
--- NOTE | 2018-07-25 10:18 | Diagnostic Imaging Report ---
Indication: Chest pain Technique: One view of the chest Comparison: 07/18/2018 Findings: Heart is enlarged. There is diffuse extensive interstitial and airspace edema versus infiltrates bilaterally, worse than on the prior exam. There are small to moderate bilateral pleural effusions. Impression: Cardiomegaly Bilateral extensive infiltrates versus edema and bilateral pleural effusions
--- NOTE | 2018-07-25 10:38 | NUR ---
NURSE NOTES: patient refused 5/325 percocet. shes requesting for 10/325 dosage which she usually take. will get a new order from dr khanna.
--- NOTE | 2018-07-25 11:33 | Consultation ---
History of Present Illness General Date patient seen: Jul 25, 2018 Chief Complaint: Dyspnea/Respdistress Present Illness Allergies: Coded Allergies: LISINOPRIL (Verified Allergy, Unknown, 07/16/18) LOSARTAN (Verified Allergy, Unknown, 07/16/18) Medication History Scheduled Amlodipine Besylate* (Amlodipine Besylate*), 10 MG ORAL DAILY, (Reported) Aspirin* (Aspirin*), 81 MG ORAL DAILY, (Reported) Atorvastatin Calcium* (Lipitor*), 80 MG ORAL BEDTIME, (Reported) Calcium Acetate (Calcium Acetate), 667 MG PO TID, (Reported) Carvedilol (Coreg), 37.5 MG ORAL EVERY 12 HOURS, (Reported) Clopidogrel Bisulfate* (Plavix*), 75 MG ORAL DAILY, (Reported) Docusate Sodium* (Colace*), 100 MG ORAL TWICE A DAY, (Reported) Epoetin Yordan (Procrit), 4,000 UNIT SUBQ 3XW, (Reported) Ergocalciferol (Vitamin D2) (Vitamin D2), 50,000 UNIT PO WEEKLY, (Reported) Ferrous Sulfate* (Ferrous Sulfate*), 325 MG ORAL TWICE A DAY, (Reported) Furosemide* (Lasix*), 40 MG ORAL TWICE A DAY, (Reported) Gabapentin* (Gabapentin*), 300 MG ORAL THREE TIMES A DAY, (Reported) Heparin Sod (Porcine) (Heparin Sodium*), 5,000 UNITS SUBQ EVERY 12 HOURS, ( Reported) Hydralazine Hcl* (Hydralazine Hcl*), 100 MG ORAL EVERY 8 HOURS, (Reported) Insulin Glargine (Lantus), 15 UNITS SUBQ BID, (Reported) Insulin Lispro (Humalog), 0 SUBQ QID, (Reported) Insulin Lispro (Humalog), 6 UNITS SUBQ AC, (Reported) Iron Sucrose (Venofer), 100 MG IVP DAILY, (Reported) Isosorbide Dinitrate (Isordil), 40 MG PO TID, (Reported) Melatonin (Melatonin), 3 MG ORAL BEDTIME, (Reported) Mirtazapine* (Mirtazapine*), 7.5 MG ORAL BEDTIME, (Reported) Multivitamin with Minerals (Multivitamins with Minerals), 1 TAB ORAL DAILY, ( Reported) Polyethylene Glycol 3350* (Miralax*), 17 GM ORAL DAILY, (Reported) Trazodone Hcl* (Desyrel*), 50 MG ORAL BEDTIME, (Reported) Scheduled PRN Acetaminophen* (Acetaminophen 325MG Tablet*), 650 MG ORAL Q6H PRN for Mild Pain (Pain Scale 1-3), (Reported) Bisacodyl (Dulcolax), 10 MG RC DAILY PRN for IF MOM INEFFECTIVE, (Reported) Hydromorphone HCl/Pf (Dilaudid 0.5 mg/0.5 ml Syringe), 0.2 MG IVP Q4HR PRN for Breakthrough Pain, (Reported) Lorazepam* (Ativan*), 0.5 MG ORAL DAILY PRN for For Anxiety, (Reported) Nitroglycerin (Nitrostat), 0.4 MG SL Q5M X3 DOSES PRN for CHEST PAIN, (Reported) Ondansetron* (Zofran*), 4 MG IVP Q8H PRN for Nausea & Vomiting, (Reported) Oxycodone Hcl Ir* (Roxicodone Ir*), 5 MG ORAL Q4H PRN for Moderate Pain (Pain Scale 4-6), (Reported) Oxycodone Hcl/Acetaminophen 10-325* (Oxycodone-Acetaminophen 10-325*), 1 TAB ORAL Q4H PRN for Severe Pain (Pain Scale 7-10), (Reported) Miscellaneous Medications Unable to Obtain Medications (Unable To Obtain Meds), (Reported) Patient History Healthcare decision maker Resuscitation status Full Code Advanced Directive on File No Past Medical/Surgical History Past Medical/Surgical History: (1) Hypertension (2) Diabetic neuropathy (3) Diabetes mellitus (4) Cardiomegaly (5) Asthma Review of Systems Constitutional: Reports: no symptoms Eye: Reports: no symptoms ENT: Reports: no symptoms Physical Exam General Appearance: WD/WN, no apparent distress Lines, tubes and drains: peripheral HEENT: normocephalic, atraumatic Neck: non-tender, normal alignment Respiratory/Chest: chest wall non-tender, normal breath sounds Breasts: no masses Cardiovascular/Chest: normal peripheral pulses Abdomen: normal bowel sounds Extremities: normal range of motion Skin Exam: normal pigmentation Last 24 Hour Vital Signs Date Time Temp Pulse Resp B/P (MAP) Pulse Ox O2 Delivery O2 Flow Rate FiO2 07/25/18 09:00 Nasal Cannula 3.0 07/25/18 08:54 99.1 07/25/18 08:13 82 171/73 07/25/18 08:12 82 171/73 07/25/18 08:00 99.1 82 22 171/73 (105) 100 07/25/18 08:00 Nasal Cannula 3.0 07/25/18 07:56 82 07/25/18 05:50 97.9 81 18 162/61 95 Room Air 07/25/18 04:06 97.9 80 16 177/77 93 Room Air 07/25/18 02:35 90 36 Room Air 07/25/18 02:35 97.9 86 36 196/73 93 Room Air 07/25/18 02:02 97.9 90 36 190/71 93 Room Air Intake and Output 07/24/18 07/25/18 19:00 07:00 Intake Total 0 ml Balance 0 ml Intake Oral 0 ml Laboratory Tests Test 07/25/18 02:30 White Blood Count 9.2 K/UL (4.8-10.8) # Red Blood Count 3.02 M/UL (4.20-5.40) L Hemoglobin 9.6 G/DL (12.0-16.0) L Hematocrit 29.6 % (37.0-47.0) L Mean Corpuscular Volume 98 FL (80-99) Mean Corpuscular Hemoglobin 31.7 PG (27.0-31.0) H Mean Corpuscular Hemoglobin Concent 32.4 G/DL (32.0-36.0) Red Cell Distribution Width 12.8 % (11.6-14.8) Platelet Count 222 K/UL (150-450) Mean Platelet Volume 7.1 FL (6.5-10.1) Neutrophils (%) (Auto) % (45.0-75.0) Lymphocytes (%) (Auto) % (20.0-45.0) Monocytes (%) (Auto) % (1.0-10.0) Eosinophils (%) (Auto) % (0.0-3.0) Basophils (%) (Auto) % (0.0-2.0) Sodium Level 139 MMOL/L (136-145) Potassium Level 5.7 MMOL/L (3.5-5.1) H Chloride Level 108 MMOL/L (98-107) H Carbon Dioxide Level 23 MMOL/L (21-32) Anion Gap 9 mmol/L (5-15) Blood Urea Nitrogen 66 mg/dL (7-18) H Creatinine 2.8 MG/DL (0.55-1.30) H Estimat Glomerular Filtration Rate 21.2 mL/min (>60) Glucose Level 203 MG/DL (74-106) H Lactic Acid Level 0.80 mmol/L (0.4-2.0) Calcium Level 8.8 MG/DL (8.5-10.1) Total Bilirubin 0.5 MG/DL (0.2-1.0) Aspartate Amino Transf (AST/SGOT) 51 U/L (15-37) H Alanine Aminotransferase (ALT/SGPT) 37 U/L (12-78) Alkaline Phosphatase 103 U/L (46-116) Total Creatine Kinase 514 U/L (26-308) H Creatine Kinase MB 2.9 NG/ML (0.0-3.6) Creatine Kinase MB Relative Index 0.5 Troponin I 0.030 ng/mL (0.000-0.056) Pro-B-Type Natriuretic Peptide 8708 pg/mL (0-125) H Total Protein 8.0 G/DL (6.4-8.2) Albumin 3.0 G/DL (3.4-5.0) L Globulin 5.0 g/dL Albumin/Globulin Ratio 0.6 (1.0-2.7) L Lipase 82 U/L (73-393) Height (Feet): 5 Height (Inches): 2.00 Weight (Pounds): 160 Medications Current Medications Medications (Trade) Dose Ordered Sig/Zara Route PRN Reason Start Time Stop Time Status Last Admin Dose Admin Acetaminophen (Tylenol) 650 mg Q4H PRN ORAL fever 07/25/18 07:15 08/24/18 07:14 Albuterol/ Ipratropium (Albuterol/ Ipratropium) 3 ml Q4H PRN HHN Shortness of Breath 07/25/18 07:15 07/30/18 07:14 Amlodipine Besylate (Norvasc) 10 mg DAILY ORAL 07/25/18 09:00 08/24/18 08:59 07/25/18 08:12 Atorvastatin Calcium (Lipitor) 80 mg BEDTIME ORAL 07/25/18 21:00 08/24/18 20:59 Calcium Acetate (Phoslo) 667 mg TID ORAL 07/25/18 09:00 08/24/18 08:59 07/25/18 08:12 Carvedilol (Coreg) 37.5 mg EVERY 12 HOURS ORAL 07/25/18 09:00 08/24/18 08:59 07/25/18 08:13 Cefepime HCl 1 gm/ Dextrose 55 ml @ 110 mls/hr Q24H IVPB 07/26/18 09:00 08/02/18 08:59 Clopidogrel Bisulfate (Plavix) 75 mg DAILY ORAL 07/25/18 09:00 08/24/18 08:59 07/25/18 08:13 Gabapentin (Neurontin) 300 mg THREE TIMES A DAY ORAL 07/25/18 09:00 08/24/18 08:59 07/25/18 08:13 Heparin Sodium (Porcine) (Heparin 5000 units/ml) 5,000 units EVERY 12 HOURS SUBQ 07/25/18 09:00 08/24/18 08:59 07/25/18 08:15 Lorazepam (Ativan) 0.5 mg DAILY PRN ORAL For Anxiety 07/25/18 07:15 08/01/18 07:14 Mirtazapine (Remeron) 7.5 mg BEDTIME ORAL 07/25/18 21:00 08/24/18 20:59 Morphine Sulfate (Morphine Sulfate) 2 mg Q4H PRN IVP Severe Pain (Pain Scale 7-10) 07/25/18 10:15 08/01/18 07:14 Ondansetron HCl (Zofran) 4 mg Q6H PRN IVP Nausea & Vomiting 07/25/18 07:15 08/24/18 07:14 Oxycodone/ Acetaminophen (Percocet 10/325) 1 tab Q6H PRN ORAL Moderate Pain (Pain Scale 4-6) 07/25/18 10:45 08/01/18 10:44 07/25/18 10:54 Polyethylene Glycol (Miralax) 17 gm DAILYPRN PRN ORAL Constipation 07/25/18 07:15 08/24/18 07:14 Temazepam (Restoril) 15 mg HSPRN PRN ORAL Insomnia 07/25/18 07:15 08/01/18 07:14 Trazodone HCl (Desyrel) 50 mg BEDTIME ORAL 07/25/18 21:00 08/24/18 20:59 Vancomycin HCl (Vanco rx to dose) 1 ea DAILY PRN MISC . 07/25/18 08:00 08/24/18 07:59 Vancomycin HCl/ Dextrose 250 ml @ 125 mls/hr ONCE ONCE IVPB 07/25/18 10:00 07/25/18 11:59 07/25/18 10:15 Assessment/Plan Problem List: (1) Acute respiratory failure ICD Codes: J96.00 - Acute respiratory failure, unspecified whether with hypoxia or hypercapnia SNOMED: 98414024 (2) Pleural effusion ICD Codes: J90 - Pleural effusion, not elsewhere classified SNOMED: 56767842 (3) Solitary kidney ICD Codes: Q60.0 - Renal agenesis, unilateral SNOMED: 133084669 (4) Diabetes mellitus ICD Codes: E11.9 - Type 2 diabetes mellitus without complications SNOMED: 83350776 (5) Diabetic neuropathy ICD Codes: E11.40 - Type 2 diabetes mellitus with diabetic neuropathy, unspecified SNOMED: 92452196, 612809717, 493169822 (6) Hypertension ICD Codes: I10 - Essential (primary) hypertension SNOMED: 15130516 Assessment/Plan thoracentesis respiratory treatment symptomatic treatment diuretics Hakeem Godinez MD Jul 25, 2018 11:33
[2018-07-25 12:00] VITALS: BP 144/64
--- NOTE | 2018-07-25 12:15 | Infectious Diseases Prog Note ---
Assessment/Plan Assessment/Plan Abx: IV Vancomycin 07/25- Cefepime 07/25- Assessment SOB, worsening- ?worsening edema vs infection -07/25 CXR: Cardiomegaly. Bilateral extensive infiltrates versus edema and bilateral pleural effusions Moderate b/l pleural effusions Afebrile No leukocytosis Recent Probable PNA, s/p Rx -07/19 CT chest: : Marked cardiomegaly. Bilateral pleural effusions. Pulmonary interstitial septal thickening, diffuse faint groundglass opacity, scattered slightly denser parenchymal opacities bilaterally. Findings most likely represent pulmonary edema. However, inflammatory etiologies are also possible. Mediastinal, possible bilateral hilar, possible left axillary lymphadenopathy. This is nonspecific, could indicate inflammatory process, lymphoproliferative disorder, metastatic lymphadenopathy among other possibilities. Splenomegaly. Suspect related to the above. Hepatomegaly -CXR: Reduced lung volumes with bibasilar infiltrates. -influenza sc neg -Bcx neg Recent Acute CHF exacerbation MICHELLE, imporved asthma HTN DM CVA w/ L side weakness [place] resident Plan: -Continue empiric IV Vancomycin and Cefepime pending sputum cx -low threshold to add PO Fluconazole if no improvement. -07/20 SP Levaquin #5 -07/15 SP Unasyn x1 -sp cx (fungal, bacterial), Cocci, CrAg, fungitell, legionella ag urine -Monitor CBC/C MP, temperatures -Aspiration precautions -Cards, Renal f/u Thank you for this consultation. Will continue to follow along with you. Subjective Allergies: Coded Allergies: LISINOPRIL (Verified Allergy, Unknown, 07/16/18) LOSARTAN (Verified Allergy, Unknown, 07/16/18) Subjective Patient was discharged yesterday to [place] but came back today to ED complaining of SOB and mild chest discomfort. Objective Vital Signs Last 24 Hour Vital Signs Date Time Temp Pulse Resp B/P (MAP) Pulse Ox O2 Delivery O2 Flow Rate FiO2 07/25/18 09:00 Nasal Cannula 3.0 07/25/18 08:54 99.1 07/25/18 08:13 82 171/73 07/25/18 08:12 82 171/73 07/25/18 08:00 99.1 82 22 171/73 (105) 100 07/25/18 08:00 Nasal Cannula 3.0 07/25/18 07:56 82 07/25/18 05:50 97.9 81 18 162/61 95 Room Air 07/25/18 04:06 97.9 80 16 177/77 93 Room Air 07/25/18 02:35 90 36 Room Air 07/25/18 02:35 97.9 86 36 196/73 93 Room Air 07/25/18 02:02 97.9 90 36 190/71 93 Room Air Height (Feet): 5 Height (Inches): 2.00 Weight (Pounds): 160 Objective GENERAL: Calm in bed, oriented x3, slightly distress secondary to short of breath. CARDIOVASCULAR: No murmur. LUNGS: Poor exchange. ABDOMEN: Bowel sounds distant. EXTREMITIES: No cyanosis, clubbing, or edema. NEUROLOGIC: The patient moves all extremities, slightly weak Laboratory Tests Test 07/25/18 02:30 White Blood Count 9.2 K/UL (4.8-10.8) # Red Blood Count 3.02 M/UL (4.20-5.40) L Hemoglobin 9.6 G/DL (12.0-16.0) L Hematocrit 29.6 % (37.0-47.0) L Mean Corpuscular Volume 98 FL (80-99) Mean Corpuscular Hemoglobin 31.7 PG (27.0-31.0) H Mean Corpuscular Hemoglobin Concent 32.4 G/DL (32.0-36.0) Red Cell Distribution Width 12.8 % (11.6-14.8) Platelet Count 222 K/UL (150-450) Mean Platelet Volume 7.1 FL (6.5-10.1) Neutrophils (%) (Auto) % (45.0-75.0) Lymphocytes (%) (Auto) % (20.0-45.0) Monocytes (%) (Auto) % (1.0-10.0) Eosinophils (%) (Auto) % (0.0-3.0) Basophils (%) (Auto) % (0.0-2.0) Sodium Level 139 MMOL/L (136-145) Potassium Level 5.7 MMOL/L (3.5-5.1) H Chloride Level 108 MMOL/L (98-107) H Carbon Dioxide Level 23 MMOL/L (21-32) Anion Gap 9 mmol/L (5-15) Blood Urea Nitrogen 66 mg/dL (7-18) H Creatinine 2.8 MG/DL (0.55-1.30) H Estimat Glomerular Filtration Rate 21.2 mL/min (>60) Glucose Level 203 MG/DL (74-106) H Lactic Acid Level 0.80 mmol/L (0.4-2.0) Calcium Level 8.8 MG/DL (8.5-10.1) Total Bilirubin 0.5 MG/DL (0.2-1.0) Aspartate Amino Transf (AST/SGOT) 51 U/L (15-37) H Alanine Aminotransferase (ALT/SGPT) 37 U/L (12-78) Alkaline Phosphatase 103 U/L (46-116) Total Creatine Kinase 514 U/L (26-308) H Creatine Kinase MB 2.9 NG/ML (0.0-3.6) Creatine Kinase MB Relative Index 0.5 Troponin I 0.030 ng/mL (0.000-0.056) Pro-B-Type Natriuretic Peptide 8708 pg/mL (0-125) H Total Protein 8.0 G/DL (6.4-8.2) Albumin 3.0 G/DL (3.4-5.0) L Globulin 5.0 g/dL Albumin/Globulin Ratio 0.6 (1.0-2.7) L Lipase 82 U/L (73-393) Current Medications Medications (Trade) Dose Ordered Sig/Zara Route PRN Reason Start Time Stop Time Status Last Admin Dose Admin Acetaminophen (Tylenol) 650 mg Q4H PRN ORAL fever 07/25/18 07:15 08/24/18 07:14 Albuterol/ Ipratropium (Albuterol/ Ipratropium) 3 ml Q4H PRN HHN Shortness of Breath 07/25/18 07:15 07/30/18 07:14 Amlodipine Besylate (Norvasc) 10 mg DAILY ORAL 07/25/18 09:00 08/24/18 08:59 07/25/18 08:12 Atorvastatin Calcium (Lipitor) 80 mg BEDTIME ORAL 07/25/18 21:00 08/24/18 20:59 Calcium Acetate (Phoslo) 667 mg TID ORAL 07/25/18 09:00 08/24/18 08:59 07/25/18 08:12 Carvedilol (Coreg) 37.5 mg EVERY 12 HOURS ORAL 07/25/18 09:00 08/24/18 08:59 07/25/18 08:13 Cefepime HCl 1 gm/ Dextrose 55 ml @ 110 mls/hr Q24H IVPB 07/26/18 09:00 08/02/18 08:59 Clopidogrel Bisulfate (Plavix) 75 mg DAILY ORAL 07/25/18 09:00 08/24/18 08:59 07/25/18 08:13 Gabapentin (Neurontin) 300 mg THREE TIMES A DAY ORAL 07/25/18 09:00 08/24/18 08:59 07/25/18 08:13 Heparin Sodium (Porcine) (Heparin 5000 units/ml) 5,000 units EVERY 12 HOURS SUBQ 07/25/18 09:00 08/24/18 08:59 07/25/18 08:15 Lorazepam (Ativan) 0.5 mg DAILY PRN ORAL For Anxiety 07/25/18 07:15 08/01/18 07:14 Mirtazapine (Remeron) 7.5 mg BEDTIME ORAL 07/25/18 21:00 08/24/18 20:59 Morphine Sulfate (Morphine Sulfate) 2 mg Q4H PRN IVP Severe Pain (Pain Scale 7-10) 07/25/18 10:15 08/01/18 07:14 Ondansetron HCl (Zofran) 4 mg Q6H PRN IVP Nausea & Vomiting 07/25/18 07:15 08/24/18 07:14 Oxycodone/ Acetaminophen (Percocet 10/325) 1 tab Q6H PRN ORAL Moderate Pain (Pain Scale 4-6) 07/25/18 10:45 08/01/18 10:44 07/25/18 10:54 Polyethylene Glycol (Miralax) 17 gm DAILYPRN PRN ORAL Constipation 07/25/18 07:15 08/24/18 07:14 Temazepam (Restoril) 15 mg HSPRN PRN ORAL Insomnia 07/25/18 07:15 08/01/18 07:14 Trazodone HCl (Desyrel) 50 mg BEDTIME ORAL 07/25/18 21:00 08/24/18 20:59 Vancomycin HCl (Vanco rx to dose) 1 ea DAILY PRN MISC . 07/25/18 08:00 08/24/18 07:59 Juliane Mcdonald M.D. Jul 25, 2018 12:15
--- NOTE | 2018-07-25 13:03 | NUR ---
NURSE NOTES: left a message to dr khanna regarding k level of 5.7. awaiting callback and new orders.
[2018-07-25] MEDS ORDERED: Sodium Polystyrene Sulfonate 15gm Powder ORAL SCH (13:15)
[2018-07-25] MEDS: Morphine Sulfate 2mg/ml Inj IVP PRN ×2 (13:48→21:40)
--- NOTE | 2018-07-25 15:53 | Cardiology Report ---
APPROVED REPORT EKG Measurement Heart [id number] Normal sinus rhythm Possible Left atrial enlargement Borderline ECG
[2018-07-25 16:00] VITALS: BP 148/72
--- NOTE | 2018-07-25 16:30 | NUR ---
NURSE NOTES: called lab (nickolas) to let them know of the blood draw for PT & PTT. will continue to monitor.
[2018-07-25 18:33] LABS: INR 1.1 (0.9-1.1)
--- NOTE | 2018-07-25 19:00 | History and Physical Report ---
DATE OF ADMISSION: 07/25/2018 TIME: 1 p.m. CONSULTANTS: 1. Naun Geiger D.O. 2. Hakeem Godienz M.D. 3. Kwesi Zee M.D. CHIEF COMPLAINT: Shortness of breath, pleural effusion, edema. BRIEF HISTORY: The patient is a 53-year-old female who was just discharged a couple of days ago, went home, became very short of breath and came back to [place], diagnosed with pleural effusion, shortness of breath, and edema, and admitted to telemetry for further care. Currently, slight short of breath, O2 NC. Slightly tired. No complaints. REVIEW OF SYSTEMS: No chest pain. Slight short of breath. No nausea, vomiting, or diarrhea. PAST MEDICAL HISTORY: Hypertension, diabetes, respiratory failure, ATN. PAST SURGICAL HISTORY: None. MEDICATIONS: Include cefepime, atorvastatin, mirtazapine, trazodone, oxycodone, morphine, vancomycin, cefepime, carvedilol, clopidogrel, and gabapentin. ALLERGIES: Lisinopril and losartan. SOCIAL HISTORY: No smoking. No alcohol. No intravenous drug abuse. FAMILY HISTORY: Noncontributory. PHYSICAL EXAMINATION: GENERAL: Calm in bed, O2 NC, slight short of breath. Oriented x2, in no acute distress. VITAL SIGNS: Temperature is 98.9, pulse 82, respirations 22, blood pressure 131/73. CARDIOVASCULAR: No murmur. LUNGS: Poor air exchange. ABDOMEN: Bowel sounds positive. EXTREMITIES: No cyanosis, clubbing, or edema. NEUROLOGIC: The patient moves all extremities, slightly weak. LABORATORY AND DIAGNOSTIC DATA: Labs at this time show hemoglobin 9.16, otherwise CBC is normal. BMP show BUN/creatinine 66/2.8, potassium 5.7, chloride 108, glucose 203. Troponin 0.03. BNP is . ASSESSMENT: Pleural effusion, edema, hypertension, shortness of breath, diabetes, respiratory failure, anemia, and ATN. PLAN: OT/PT. Dietary evaluation. CBC and BMP in the morning. O2 and pulmonary treatment. . Blood pressure blood sugar control. Dr. Park, nephrology followup. Naun Geiger D.O. DR: TRISTEN JOB#: [id number] CC:
--- NOTE | 2018-07-25 19:24 | NUR ---
HAND-OFF: Report given to eduardo alvarenga.
--- NOTE | 2018-07-25 19:50 | NUR ---
NURSE NOTES: Report received from Abby RODRIGUEZ. Patient is asleep but arousable by voice. Respiratory even and unlabored. No c/o pain and/or SOB at this time. IV site is asymptomatic, patent, and intact. Bed is in lowest position with side rails up x2 and brakes are engaged. Encouraged patient to use call light when in need of assistance, pt verbalized understanding. Will continue to monitor.
[2018-07-25 20:00] VITALS: BP 160/74
[2018-07-25] MEDS: Atorvastatin 80mg tab ORAL SCH (21:41)
[2018-07-25] MEDS: TraZODone 50mg tab ORAL SCH (21:42)
--- NOTE | 2018-07-25 23:30 | NUR ---
NURSE NOTES: Patient is observed in bed, eating dinner. Denies pain at this time. VSS. SR on potline monitor. Call light within reach. Will continue to monitor.
[2018-07-26] VITALS: BP 144/72
[2018-07-26] MEDS ORDERED: Vancomycin 1 GM in D5W 275 ML IV SCH (00:30)
[2018-07-26 03:58] VITALS: BP 152/60
--- NOTE | 2018-07-26 06:30 | NUR ---
NURSE NOTES: Patient removed IV. Attempted to restart a new one, however, patient refused at this time. Charge nurse made aware and also attempted. Patient shows increase in agitation. Will retry at a later time.
--- NOTE | 2018-07-26 07:30 | NUR ---
NURSE NOTES: Report received from JENNIFER Pantoja. Patient awake and having breakfast. In 3L NC. Denies SOB or any pain. Patient doesn't have an IV access at this time. Bed on lowest position, brakes engaged, alarm on, side rails upx2. Call light within easy reach.
--- NOTE | 2018-07-26 07:44 | NUR ---
HAND-OFF: Report given to James RODRIGUEZ. Patient is observed in bed, eating breakfast. No complains of pain and/or SOB. Endorsed plan of care.
[2018-07-26 08:00] VITALS: BP 160/72
--- NOTE | 2018-07-26 08:00 | Cardiology Progress Note ---
Assessment/Plan Assessment/Plan The patient is seen and examined, full consult note will be dictated. Objective Last 24 Hour Vital Signs Date Time Temp Pulse Resp B/P (MAP) Pulse Ox O2 Delivery O2 Flow Rate FiO2 07/26/18 04:05 99 Nasal Cannula 3.0 32 07/26/18 04:05 63 07/26/18 04:04 Nasal Cannula 3.0 32 07/26/18 03:58 98.0 70 18 152/60 (90) 99 07/26/18 00:11 64 07/26/18 00:00 97.3 63 18 144/72 (96) 98 07/25/18 21:40 69 160/74 07/25/18 21:00 Nasal Cannula 3.0 07/25/18 20:06 63 20 Nasal Cannula 3.0 32 07/25/18 20:00 98.2 69 20 160/74 (102) 98 07/25/18 19:52 63 07/25/18 17:39 97.5 07/25/18 16:00 97.5 69 20 148/72 (97) 98 07/25/18 15:34 71 07/25/18 12:00 97.1 71 21 144/64 (90) 98 07/25/18 11:45 72 07/25/18 09:00 Nasal Cannula 3.0 07/25/18 08:54 99.1 07/25/18 08:13 82 171/73 07/25/18 08:12 82 171/73 Intake and Output 07/25/18 07/26/18 19:00 07:00 Intake Total 300 ml 400 ml Balance 300 ml 400 ml Intake Oral 300 ml 400 ml Laboratory Tests Test 07/25/18 12:15 07/25/18 18:15 Urine Legionella Antigen Pending Prothrombin Time 11.7 SEC (9.30-11.50) H Prothromb Time International Ratio 1.1 (0.9-1.1) Activated Partial Thromboplast Time 29 SEC (23-33) Microbiology Date/Time Source Procedure Growth Status 07/25/18 02:25 Blood Blood Culture - Preliminary NO GROWTH AFTER 24 HOURS Resulted 07/25/18 02:15 Blood Blood Culture - Preliminary NO GROWTH AFTER 24 HOURS Resulted Kwesi Zee MD Jul 26, 2018 08:00
[2018-07-26] MEDS: Calcium Acetate 667mg Tab ORAL SCH ×3 (08:25→17:27)
[2018-07-26] MEDS: Carvedilol 12.5mg tab ORAL SCH ×2 (08:26→20:25)
--- NOTE | 2018-07-26 08:52 | NUR ---
REHAB MED PT NOTE CONSULT RECEIVED, ERMELINDA COMPLTED, PATIENT WILL BENEFIT FROM SKILLED PT DURING STAY FOR RETURN TO PLOF. RECOMMEND HOME PT AT DC VS SNF. PLAN OF CARE INITIATED. RECOMMEND COMMODE IF DC HOME AND WC. LEANNA SANTIAGO PT DPT Addendum: 07/26/18 at 0853 by LEANNA SANTIAGO PT Amended: Links added.
--- NOTE | 2018-07-26 08:55 | NUR ---
RADIOLOGY DEPT CHEST X-RAY DONE.-P.DYE
[2018-07-26] MEDS: Cefepime 1gm/D5W 55ml IVPB SCH ×4 (09:00→10:10)
[2018-07-26] MEDS: Heparin 5000 units/ml inj SUBQ SCH ×2 (09:00→20:31)
[2018-07-26 09:09] LABS: BASOPHILS % (AUTO) 0.9 % (0.0-2.0); EOSINOPHILS % (AUTO) 3.3 % (0.0-3.0); HEMATOCRIT 27.9 % (37.0-47.0); HEMOGLOBIN 8.8 G/DL (12.0-16.0); LYMPHOCYTES % (AUTO) 13.7 % (20.0-45.0); MEAN CORPUSCULAR VOLUME 103 FL (80-99); MONOCYTES % (AUTO) 6.1 % (1.0-10.0); PLATELET COUNT 186 K/UL (150-450); RED CELL DISTRIBUTION WIDTH 12.8 % (11.6-14.8)
[2018-07-26 09:58] LABS: ALANINE AMINOTRANSFERASE 30 U/L (12-78); ALBUMIN 2.8 G/DL (3.4-5.0); ALBUMIN/GLOBULIN RATIO 0.6 (1.0-2.7); ALKALINE PHOSPHATASE 98 U/L (46-116); ANION GAP 9 mmol/L (5-15); ASPARTATE AMINO TRANSFERASE 19 U/L (15-37); BILIRUBIN,TOTAL 0.3 MG/DL (0.2-1.0); BLOOD UREA NITROGEN 58 mg/dL (7-18); CALCIUM 8.5 MG/DL (8.5-10.1); CARBON DIOXIDE 24 MMOL/L (21-32); CHLORIDE 108 MMOL/L (98-107); CREATININE 2.8 MG/DL (0.55-1.30); POTASSIUM 4.1 MMOL/L (3.5-5.1); SODIUM 141 MMOL/L (136-145)
[2018-07-26] MEDS: Morphine Sulfate 2mg/ml Inj IVP PRN ×3 (10:02→22:51)
--- NOTE | 2018-07-26 10:27 | Diagnostic Imaging Report ---
Indication: Shortness of breath Technique: One view of the chest Comparison: 07/25/2018 Findings: Bilateral interstitial and airspace disease has improved, but persists, still extensive, right greater than left. There is probably a left-sided pleural effusion. This may be increased in size since prior exam The heart remains enlarged. Impression: Improved but still extensive bilateral interstitial and airspace edema versus infiltrates Suspect increasing left pleural effusion
--- NOTE | 2018-07-26 11:11 | Pre-Procedure Note/Attestation ---
Pre-Procedure Note/Attestation Complete Prior to Procedure Planned Procedure: right Procedure Narrative: thoracentesis Indications for Procedure Pre-Operative Diagnosis: pleural effusion Attestation I attest that I discussed the nature of the procedure; its benefits; risks and complications; and alternatives (and the risks and benefits of such alternatives ), prior to the procedure, with the patient (or the patient's legal agricultural sales representative). I attest that, if there was a reasonable possibility of needing a blood transfusion, the patient (or the patient's legal agricultural sales representative) was given the [facility] standardized written summary, pursuant to the Rohan [place] Blood Safety Act ([place] Health and Safety Code # 1645, as amended). I attest that I re-evaluated the patient just prior to the surgery and that there has been no change in the patient's H&P, except as documented below: Poli Ramirez MD Jul 26, 2018 11:11
--- NOTE | 2018-07-26 11:29 | Brief Operative Note ---
Immediate Post Operative Note Operative Note Chief Complaint: SOB Pre-op Diagnosis: pleural effusion Procedure: R thoracentesis Post-op Diagnosis: same as pre-op Findings: consistent w/pre-op dx studies Surgeon: Nelson Urrutia Anesthesia: local Specimen: yes - fluid sent to lab Complications: none Condition: stable Fluids: none Implant(s) used?: No Poli Urrutia MD Jul 26, 2018 11:29
--- NOTE | 2018-07-26 11:35 | Diagnostic Imaging Report ---
Indications: Pleural effusion Technique: Ultrasound used to localize optimal puncture site. Sterile prepping and draping right chest. Local anesthesia with 1% lidocaine. Under real-time ultrasound guidance, puncture pleural space using thoracentesis needle. Stylet removed. Catheter placed to vacuum bottle suction. Total 500 milliliters of fluid aspirated. Patient tolerated procedure well, without immediate complication. Findings: Followup sonography demonstrates complete resolution of pleural fluid. Impression: Successful ultrasound-guided thoracentesis, yielding 500 milliliters of fluid
--- NOTE | 2018-07-26 11:54 | Pulmonology Progress Note ---
Assessment/Plan Problems: (1) Acute respiratory failure (2) Pleural effusion (3) Solitary kidney (4) Diabetes mellitus (5) Diabetic neuropathy (6) Hypertension Assessment/Plan thoracentesis this morning doing better med/surg Subjective ROS Limited/Unobtainable: No Constitutional: Reports: no symptoms HEENT: Repors: no symptoms Respiratory: Reports: no symptoms Allergies: Coded Allergies: LISINOPRIL (Verified Allergy, Unknown, 07/16/18) LOSARTAN (Verified Allergy, Unknown, 07/16/18) Objective Last 24 Hour Vital Signs Date Time Temp Pulse Resp B/P (MAP) Pulse Ox O2 Delivery O2 Flow Rate FiO2 07/26/18 09:00 Nasal Cannula 3.0 07/26/18 08:26 68 160/72 07/26/18 08:26 68 160/72 07/26/18 08:00 97.0 68 18 160/72 (101) 96 07/26/18 08:00 84 07/26/18 04:05 99 Nasal Cannula 3.0 32 07/26/18 04:05 63 07/26/18 04:04 Nasal Cannula 3.0 32 07/26/18 03:58 98.0 70 18 152/60 (90) 99 07/26/18 00:11 64 07/26/18 00:00 97.3 63 18 144/72 (96) 98 07/25/18 21:40 69 160/74 07/25/18 21:00 Nasal Cannula 3.0 07/25/18 20:06 63 20 Nasal Cannula 3.0 32 07/25/18 20:00 98.2 69 20 160/74 (102) 98 07/25/18 19:52 63 07/25/18 17:39 97.5 07/25/18 16:00 97.5 69 20 148/72 (97) 98 07/25/18 15:34 71 07/25/18 12:00 97.1 71 21 144/64 (90) 98 Intake and Output 07/25/18 07/26/18 19:00 07:00 Intake Total 300 ml 400 ml Balance 300 ml 400 ml Intake Oral 300 ml 400 ml General Appearance: WD/WN HEENT: normocephalic, atraumatic Respiratory/Chest: chest wall non-tender, lungs clear Breasts: no masses Abdomen: normal bowel sounds, soft, non tender, no organomegaly Microbiology Date/Time Source Procedure Growth Status 07/25/18 02:25 Blood Blood Culture - Preliminary NO GROWTH AFTER 24 HOURS Resulted 07/25/18 02:15 Blood Blood Culture - Preliminary Resulted Laboratory Tests 07/25/18 12:15: Urine Legionella Antigen [Pending] 07/25/18 18:15: Prothrombin Time 11.7H, Prothromb Time International Ratio 1.1, Activated Partial Thromboplast Time 29 07/26/18 08:45: White Blood Count 6.0, Red Blood Count 2.70L, Hemoglobin 8.8L, Hematocrit 27.9L , Mean Corpuscular Volume 103H, Mean Corpuscular Hemoglobin 32.6H, Mean Corpuscular Hemoglobin Concent 31.5L, Red Cell Distribution Width 12.8, Platelet Count 186, Mean Platelet Volume 8.2, Neutrophils (%) (Auto) 76.0H, Lymphocytes (%) (Auto) 13.7L, Monocytes (%) (Auto) 6.1, Eosinophils (%) (Auto) 3.3H, Basophils (%) (Auto) 0.9, Sodium Level 141, Potassium Level 4.1, Chloride Level 108H, Carbon Dioxide Level 24, Anion Gap 9, Blood Urea Nitrogen 58H, Creatinine 2.8H, Estimat Glomerular Filtration Rate 21.2, Glucose Level 224H, Calcium Level 8.5, Total Bilirubin 0.3, Aspartate Amino Transf (AST/SGOT) 19, Alanine Aminotransferase (ALT/SGPT) 30, Alkaline Phosphatase 98, Pro-B-Type Natriuretic Peptide 37794H, Total Protein 7.4, Albumin 2.8L, Globulin 4.6, Albumin/Globulin Ratio 0.6L, Coccidioides Antibody (Comp Fix) [Pending], Cryptococcus Antigen [Pending] Current Medications Medications (Trade) Dose Ordered Sig/Zara Route PRN Reason Start Time Stop Time Status Last Admin Dose Admin Acetaminophen (Tylenol) 650 mg Q4H PRN ORAL fever 07/25/18 07:15 08/24/18 07:14 Albuterol/ Ipratropium (Albuterol/ Ipratropium) 3 ml Q4H PRN HHN Shortness of Breath 07/25/18 07:15 07/30/18 07:14 Amlodipine Besylate (Norvasc) 10 mg DAILY ORAL 07/25/18 09:00 08/24/18 08:59 07/26/18 08:26 Atorvastatin Calcium (Lipitor) 80 mg BEDTIME ORAL 07/25/18 21:00 08/24/18 20:59 07/25/18 21:41 Calcium Acetate (Phoslo) 667 mg TID ORAL 07/25/18 09:00 08/24/18 08:59 07/26/18 08:25 Carvedilol (Coreg) 37.5 mg EVERY 12 HOURS ORAL 07/25/18 09:00 08/24/18 08:59 07/26/18 08:26 Cefepime HCl 1 gm/ Dextrose 55 ml @ 110 mls/hr Q24H IVPB 07/26/18 09:00 08/02/18 08:59 07/26/18 10:10 Clopidogrel Bisulfate (Plavix) 75 mg DAILY ORAL 07/25/18 09:00 08/24/18 08:59 07/26/18 08:26 Gabapentin (Neurontin) 300 mg THREE TIMES A DAY ORAL 07/25/18 09:00 08/24/18 08:59 07/26/18 08:25 Heparin Sodium (Porcine) (Heparin 5000 units/ml) 5,000 units EVERY 12 HOURS SUBQ 07/25/18 09:00 08/24/18 08:59 07/25/18 08:15 Lorazepam (Ativan) 0.5 mg DAILY PRN ORAL For Anxiety 07/25/18 07:15 08/01/18 07:14 Mirtazapine (Remeron) 7.5 mg BEDTIME ORAL 07/25/18 21:00 08/24/18 20:59 07/25/18 21:42 Morphine Sulfate (Morphine Sulfate) 2 mg Q4H PRN IVP Severe Pain (Pain Scale 7-10) 07/25/18 10:15 08/01/18 07:14 07/26/18 10:02 Ondansetron HCl (Zofran) 4 mg Q6H PRN IVP Nausea & Vomiting 07/25/18 07:15 08/24/18 07:14 Oxycodone/ Acetaminophen (Percocet 10/325) 1 tab Q6H PRN ORAL Moderate Pain (Pain Scale 4-6) 07/25/18 10:45 08/01/18 10:44 07/26/18 03:47 Polyethylene Glycol (Miralax) 17 gm DAILYPRN PRN ORAL Constipation 07/25/18 07:15 08/24/18 07:14 Temazepam (Restoril) 15 mg HSPRN PRN ORAL Insomnia 07/25/18 07:15 08/01/18 07:14 Trazodone HCl (Desyrel) 50 mg BEDTIME ORAL 07/25/18 21:00 08/24/18 20:59 07/25/18 21:42 Vancomycin HCl (Vanco rx to dose) 1 ea DAILY PRN MISC . 07/25/18 08:00 08/24/18 07:59 Hakeem Godinez MD Jul 26, 2018 11:54
[2018-07-26 12:00] VITALS: BP 152/72
--- NOTE | 2018-07-26 12:21 | Infectious Diseases Prog Note ---
Assessment/Plan Assessment/Plan Abx: IV Vancomycin 07/25- Cefepime 07/25- Assessment SOB, worsening- ?worsening edema vs infection -07/26 CXR: Improved but still extensive bilateral interstitial and airspace edema versus infiltrates Suspect increasing left pleural effusion -07/25 CXR: Cardiomegaly. Bilateral extensive infiltrates versus edema and bilateral pleural effusions Gram positive bacteremic, high grade- r/o S. aureus -07/25 Bcx 4/4 GPC Clusters Moderate b/l pleural effusions -07/26 SP R thoracentesis Afebrile No leukocytosis Recent Probable PNA, s/p Rx -07/19 CT chest: : Marked cardiomegaly. Bilateral pleural effusions. Pulmonary interstitial septal thickening, diffuse faint groundglass opacity, scattered slightly denser parenchymal opacities bilaterally. Findings most likely represent pulmonary edema. However, inflammatory etiologies are also possible. Mediastinal, possible bilateral hilar, possible left axillary lymphadenopathy. This is nonspecific, could indicate inflammatory process, lymphoproliferative disorder, metastatic lymphadenopathy among other possibilities. Splenomegaly. Suspect related to the above. Hepatomegaly -CXR: Reduced lung volumes with bibasilar infiltrates. -influenza sc neg -Bcx neg Recent Acute CHF exacerbation MICHELLE, imporved asthma HTN DM CVA w/ L side weakness [place] resident Plan: -Continue empiric IV Vancomycin and Cefepime #2 pending cultures -low threshold to add PO Fluconazole if no improvement. -07/20 SP Levaquin #5 -07/15 SP Unasyn x1 -Bcx x2, 2d Echo -f/u pleural fluid analysis and cx -f/u sp cx (fungal, bacterial), Cocci, CrAg, fungitell, legionella ag urine -Monitor CBC/C MP, temperatures -Aspiration precautions -Cards, Renal f/u Thank you for this consultation. Will continue to follow along with you. Subjective Allergies: Coded Allergies: LISINOPRIL (Verified Allergy, Unknown, 07/16/18) LOSARTAN (Verified Allergy, Unknown, 07/16/18) Subjective afebrile s/p R thoracenteseis today bacteremic Objective Vital Signs Last 24 Hour Vital Signs Date Time Temp Pulse Resp B/P (MAP) Pulse Ox O2 Delivery O2 Flow Rate FiO2 07/26/18 12:00 97.7 72 18 152/72 (98) 96 07/26/18 09:00 Nasal Cannula 3.0 07/26/18 08:26 68 160/72 18 08:26 68 160/72 07/26/18 08:00 97.0 68 18 160/72 (101) 96 07/26/18 08:00 84 07/26/18 04:05 99 Nasal Cannula 3.0 32 07/26/18 04:05 63 07/26/18 04:04 Nasal Cannula 3.0 32 07/26/18 03:58 98.0 70 18 152/60 (90) 99 07/26/18 00:11 64 07/26/18 00:00 97.3 63 18 144/72 (96) 98 07/25/18 21:40 69 160/74 07/25/18 21:00 Nasal Cannula 3.0 07/25/18 20:06 63 20 Nasal Cannula 3.0 32 07/25/18 20:00 98.2 69 20 160/74 (102) 98 07/25/18 19:52 63 07/25/18 17:39 97.5 07/25/18 16:00 97.5 69 20 148/72 (97) 98 07/25/18 15:34 71 Height (Feet): 5 Height (Inches): 2.00 Weight (Pounds): 158 Objective GENERAL: Calm in bed, oriented x3, slightly distress secondary to short of breath. CARDIOVASCULAR: No murmur. LUNGS: Poor exchange. ABDOMEN: Bowel sounds distant. EXTREMITIES: No cyanosis, clubbing, or edema. NEUROLOGIC: The patient moves all extremities, slightly weak Microbiology Date/Time Source Procedure Growth Status 07/25/18 02:25 Blood Blood Culture - Preliminary Resulted 07/25/18 02:15 Blood Blood Culture - Preliminary Resulted Laboratory Tests Test 07/25/18 12:15 07/25/18 18:15 07/26/18 08:45 Urine Legionella Antigen Pending Prothrombin Time 11.7 SEC (9.30-11.50) H Prothromb Time International Ratio 1.1 (0.9-1.1) Activated Partial Thromboplast Time 29 SEC (23-33) White Blood Count 6.0 K/UL (4.8-10.8) Red Blood Count 2.70 M/UL (4.20-5.40) L Hemoglobin 8.8 G/DL (12.0-16.0) L Hematocrit 27.9 % (37.0-47.0) L Mean Corpuscular Volume 103 FL (80-99) H Mean Corpuscular Hemoglobin 32.6 PG (27.0-31.0) H Mean Corpuscular Hemoglobin Concent 31.5 G/DL (32.0-36.0) L Red Cell Distribution Width 12.8 % (11.6-14.8) Platelet Count 186 K/UL (150-450) Mean Platelet Volume 8.2 FL (6.5-10.1) Neutrophils (%) (Auto) 76.0 % (45.0-75.0) H Lymphocytes (%) (Auto) 13.7 % (20.0-45.0) L Monocytes (%) (Auto) 6.1 % (1.0-10.0) Eosinophils (%) (Auto) 3.3 % (0.0-3.0) H Basophils (%) (Auto) 0.9 % (0.0-2.0) Sodium Level 141 MMOL/L (136-145) Potassium Level 4.1 MMOL/L (3.5-5.1) Chloride Level 108 MMOL/L (98-107) H Carbon Dioxide Level 24 MMOL/L (21-32) Anion Gap 9 mmol/L (5-15) Blood Urea Nitrogen 58 mg/dL (7-18) H Creatinine 2.8 MG/DL (0.55-1.30) H Estimat Glomerular Filtration Rate 21.2 mL/min (>60) Glucose Level 224 MG/DL (74-106) H Calcium Level 8.5 MG/DL (8.5-10.1) Total Bilirubin 0.3 MG/DL (0.2-1.0) Aspartate Amino Transf (AST/SGOT) 19 U/L (15-37) Alanine Aminotransferase (ALT/SGPT) 30 U/L (12-78) Alkaline Phosphatase 98 U/L (46-116) Pro-B-Type Natriuretic Peptide 11014 pg/mL (0-125) H Total Protein 7.4 G/DL (6.4-8.2) Albumin 2.8 G/DL (3.4-5.0) L Globulin 4.6 g/dL Albumin/Globulin Ratio 0.6 (1.0-2.7) L Coccidioides Antibody (Comp Fix) Pending Cryptococcus Antigen Pending Current Medications Medications (Trade) Dose Ordered Sig/Zara Route PRN Reason Start Time Stop Time Status Last Admin Dose Admin Acetaminophen (Tylenol) 650 mg Q4H PRN ORAL fever 07/25/18 07:15 08/24/18 07:14 Albuterol/ Ipratropium (Albuterol/ Ipratropium) 3 ml Q4H PRN HHN Shortness of Breath 07/25/18 07:15 07/30/18 07:14 Amlodipine Besylate (Norvasc) 10 mg DAILY ORAL 07/25/18 09:00 08/24/18 08:59 07/26/18 08:26 Atorvastatin Calcium (Lipitor) 80 mg BEDTIME ORAL 07/25/18 21:00 08/24/18 20:59 07/25/18 21:41 Calcium Acetate (Phoslo) 667 mg TID ORAL 07/25/18 09:00 08/24/18 08:59 07/26/18 08:25 Carvedilol (Coreg) 37.5 mg EVERY 12 HOURS ORAL 07/25/18 09:00 08/24/18 08:59 07/26/18 08:26 Cefepime HCl 1 gm/ Dextrose 55 ml @ 110 mls/hr Q24H IVPB 07/26/18 09:00 08/02/18 08:59 07/26/18 10:10 Clopidogrel Bisulfate (Plavix) 75 mg DAILY ORAL 07/25/18 09:00 08/24/18 08:59 07/26/18 08:26 Gabapentin (Neurontin) 300 mg THREE TIMES A DAY ORAL 07/25/18 09:00 08/24/18 08:59 07/26/18 08:25 Heparin Sodium (Porcine) (Heparin 5000 units/ml) 5,000 units EVERY 12 HOURS SUBQ 07/25/18 09:00 08/24/18 08:59 07/25/18 08:15 Lorazepam (Ativan) 0.5 mg DAILY PRN ORAL For Anxiety 07/25/18 07:15 08/01/18 07:14 Mirtazapine (Remeron) 7.5 mg BEDTIME ORAL 07/25/18 21:00 08/24/18 20:59 07/25/18 21:42 Morphine Sulfate (Morphine Sulfate) 2 mg Q4H PRN IVP Severe Pain (Pain Scale 7-10) 07/25/18 10:15 08/01/18 07:14 07/26/18 10:02 Ondansetron HCl (Zofran) 4 mg Q6H PRN IVP Nausea & Vomiting 07/25/18 07:15 08/24/18 07:14 Oxycodone/ Acetaminophen (Percocet 10/325) 1 tab Q6H PRN ORAL Moderate Pain (Pain Scale 4-6) 07/25/18 10:45 08/01/18 10:44 07/26/18 03:47 Polyethylene Glycol (Miralax) 17 gm DAILYPRN PRN ORAL Constipation 07/25/18 07:15 08/24/18 07:14 Temazepam (Restoril) 15 mg HSPRN PRN ORAL Insomnia 07/25/18 07:15 08/01/18 07:14 Trazodone HCl (Desyrel) 50 mg BEDTIME ORAL 07/25/18 21:00 08/24/18 20:59 07/25/18 21:42 Vancomycin HCl (Vanco rx to dose) 1 ea DAILY PRN MISC . 07/25/18 08:00 08/24/18 07:59 Juliane Mcdonald M.D. Jul 26, 2018 12:21
--- NOTE | 2018-07-26 14:55 | General Progress Note ---
Assessment/Plan Problem List: (1) Acute respiratory failure ICD Codes: J96.00 - Acute respiratory failure, unspecified whether with hypoxia or hypercapnia SNOMED: 89756470 (2) Pleural effusion ICD Codes: J90 - Pleural effusion, not elsewhere classified SNOMED: 05965368 (3) Hypertension ICD Codes: I10 - Essential (primary) hypertension SNOMED: 15680571 (4) Diabetes mellitus ICD Codes: E11.9 - Type 2 diabetes mellitus without complications SNOMED: 39844412 (5) ATN (acute tubular necrosis) ICD Codes: N17.0 - Acute kidney failure with tubular necrosis SNOMED: 79417797 (6) Abdominal pain ICD Codes: R10.9 - Unspecified abdominal pain SNOMED: 81199003 Status: unchanged Assessment/Plan o2 pulm tx pt diet eval bp bs control cbc bmp am Subjective Constitutional: Reports: weakness Respiratory: Reports: shortness of breath Allergies: Coded Allergies: LISINOPRIL (Verified Allergy, Unknown, 07/16/18) LOSARTAN (Verified Allergy, Unknown, 07/16/18) All Systems: reviewed and negative except above Subjective tired in bed Objective Last 24 Hour Vital Signs Date Time Temp Pulse Resp B/P (MAP) Pulse Ox O2 Delivery O2 Flow Rate FiO2 07/26/18 12:00 97.7 72 18 152/72 (98) 96 07/26/18 12:00 67 07/26/18 09:00 Nasal Cannula 3.0 07/26/18 08:36 66 18 Nasal Cannula 3.0 32 07/26/18 08:36 97 Nasal Cannula 3.0 32 07/26/18 08:34 Nasal Cannula 3.0 32 07/26/18 08:26 68 160/72 07/26/18 08:26 68 160/72 07/26/18 08:00 97.0 68 18 160/72 (101) 96 07/26/18 08:00 84 07/26/18 04:05 99 Nasal Cannula 3.0 32 07/26/18 04:05 63 07/26/18 04:04 Nasal Cannula 3.0 32 07/26/18 03:58 98.0 70 18 152/60 (90) 99 07/26/18 00:11 64 07/26/18 00:00 97.3 63 18 144/72 (96) 98 12/18/18 21:40 69 160/74 12/18/18 21:00 Nasal Cannula 3.0 07/25/18 20:06 63 20 Nasal Cannula 3.0 32 07/25/18 20:00 98.2 69 20 160/74 (102) 98 07/25/18 19:52 63 07/25/18 17:39 97.5 07/25/18 16:00 97.5 69 20 148/72 (97) 98 07/25/18 15:34 71 Intake and Output 07/25/18 07/26/18 19:00 07:00 Intake Total 300 ml 400 ml Balance 300 ml 400 ml Intake Oral 300 ml 400 ml Laboratory Tests 07/25/18 18:15: Prothrombin Time 11.7H, Prothromb Time International Ratio 1.1, Activated Partial Thromboplast Time 29 07/26/18 08:45: White Blood Count 6.0, Red Blood Count 2.70L, Hemoglobin 8.8L, Hematocrit 27.9L , Mean Corpuscular Volume 103H, Mean Corpuscular Hemoglobin 32.6H, Mean Corpuscular Hemoglobin Concent 31.5L, Red Cell Distribution Width 12.8, Platelet Count 186, Mean Platelet Volume 8.2, Neutrophils (%) (Auto) 76.0H, Lymphocytes (%) (Auto) 13.7L, Monocytes (%) (Auto) 6.1, Eosinophils (%) (Auto) 3.3H, Basophils (%) (Auto) 0.9, Sodium Level 141, Potassium Level 4.1, Chloride Level 108H, Carbon Dioxide Level 24, Anion Gap 9, Blood Urea Nitrogen 58H, Creatinine 2.8H, Estimat Glomerular Filtration Rate 21.2, Glucose Level 224H, Calcium Level 8.5, Total Bilirubin 0.3, Aspartate Amino Transf (AST/SGOT) 19, Alanine Aminotransferase (ALT/SGPT) 30, Alkaline Phosphatase 98, Pro-B-Type Natriuretic Peptide 64859J, Total Protein 7.4, Albumin 2.8L, Globulin 4.6, Albumin/Globulin Ratio 0.6L, Coccidioides Antibody (Comp Fix) [Pending], Cryptococcus Antigen [Pending] 07/26/18 12:15: Beta-(1,3)-D-Glucan [Pending] 07/26/18 12:16: Body Fluid pH 8.0, Body Fluid Lactate Dehydrogenase [Pending] 07/26/18 13:10: Urine Creatinine 72.9 Height (Feet): 5 Height (Inches): 2.00 Weight (Pounds): 158 General Appearance: lethargic EENT: normal ENT inspection Neck: normal alignment Cardiovascular: normal peripheral pulses, normal rate, regular rhythm Respiratory/Chest: chest wall non-tender, decreased breath sounds Abdomen: normal bowel sounds, non tender, soft Extremities: normal inspection Edema: 1+ Arm (L), 1+ Arm (R), 1+ Leg (L), 1+ Leg (R), 1+ Pedal (L), 1+ Pedal ( R), 1+ Generalized Edema: trace edema Neurologic: responsive, motor weakness Skin: normal pigmentation, warm/dry Naun Geiger DO Jul 26, 2018 14:55
--- NOTE | 2018-07-26 14:59 | NUR ---
CASE MANAGEMENT:REVIEW 07/26/18 SI: ACUTE RESPIRATORY FAILURE 97.7 72 18 152/72 96% ON 3L/NC H/H-8.8/27.9 BUN+58 CR+2.8 BNP+24430 IS: IV CEFEPIME Q24 REMERON PO QHS TRAZODONE PO QHS PERCOCET PO Q6HRS PRN IV MORPHINE Q4HRS PRN NORVASC PO QD PHOSLO PO TID COREG PO Q12 PLAVIX PO QD HEPARIN SQ Q12 : TRANSFER FROM [facility] TO MED/SURG PLAN: BLOOD CULTURE PENDING
--- NOTE | 2018-07-26 15:04 | Diagnostic Imaging Report ---
Indication: Status post thoracentesis Technique: One view of the chest Comparison: 3 hours earlier Findings: No evidence of residual pleural fluid is seen on the right, although none was visible preprocedure either. The left hemidiaphragm remains obscured, with likely consolidation at the left lung base. Diffuse mostly interstitial parenchymal disease persists, unchanged. No pneumothorax Impression: No radiographic evident complication, status post right thoracentesis. Essentially stable findings as described, over 3 hours
--- NOTE | 2018-07-26 15:21 | NUR ---
INSURANCE FAXED TO JANETH ELDRIDGE T: [phone] OPT#2 F: [phone]
--- NOTE | 2018-07-26 15:49 | Diagnostic Imaging Report ---
Indication: Abnormal renal function tests Technique: Grayscale and duplex images of the kidneys, retroperitoneum, and bladder were obtained. Comparison: 07/16/2018 Findings: Right kidney measures 12.5 cm in length. Left kidney is not demonstrated. Right kidney demonstrates normal echogenicity. No hydronephrosis. No focal abnormality. Normal inferior vena cava. Bladder is normal. A right ureteral jet is demonstrated. No left ureteral jet. No significant change Impression: Normal right kidney. No evidence of hydronephrosis No significant exchange architect 10 days As previously, nonvisualized left kidney. Reportedly absent
[2018-07-26 16:00] VITALS: BP 137/67
--- NOTE | 2018-07-26 16:58 | Nephrology Progress Note ---
Assessment/Plan Assessment 1. MICHELLE 2.CKD 3.HTN 4.CHF Plan Plan continue current monitoring renal function avoid NSAID Replace electrolyte as need it Subjective Constitutional: Reports: no symptoms HEENT: Reports: no symptoms Neurologic/Psychiatric: Reports: no symptoms Subjective pt was recently discharged home came back to ED with increasing SOB and lower ext swelling Objective Objective Last 24 Hour Vital Signs Date Time Temp Pulse Resp B/P (MAP) Pulse Ox O2 Delivery O2 Flow Rate FiO2 07/26/18 12:00 97.7 72 18 152/72 (98) 96 07/26/18 12:00 67 07/26/18 09:00 Nasal Cannula 3.0 07/26/18 08:36 66 18 Nasal Cannula 3.0 32 07/26/18 08:36 97 Nasal Cannula 3.0 32 07/26/18 08:34 Nasal Cannula 3.0 32 07/26/18 08:26 68 160/72 07/26/18 08:26 68 160/72 07/26/18 08:00 97.0 68 18 160/72 (101) 96 07/26/18 08:00 84 07/26/18 04:05 99 Nasal Cannula 3.0 32 07/26/18 04:05 63 07/26/18 04:04 Nasal Cannula 3.0 32 07/26/18 03:58 98.0 70 18 152/60 (90) 99 07/26/18 00:11 64 07/26/18 00:00 97.3 63 18 144/72 (96) 98 07/25/18 21:40 69 160/74 07/25/18 21:00 Nasal Cannula 3.0 07/25/18 20:06 63 20 Nasal Cannula 3.0 32 07/25/18 20:00 98.2 69 20 160/74 (102) 98 07/25/18 19:52 63 07/25/18 17:39 97.5 Intake and Output 07/25/18 07/26/18 19:00 07:00 Intake Total 300 ml 400 ml Balance 300 ml 400 ml Intake Oral 300 ml 400 ml Laboratory Tests 07/25/18 18:15: Prothrombin Time 11.7H, Prothromb Time International Ratio 1.1, Activated Partial Thromboplast Time 29 07/26/18 08:45: White Blood Count 6.0, Red Blood Count 2.70L, Hemoglobin 8.8L, Hematocrit 27.9L , Mean Corpuscular Volume 103H, Mean Corpuscular Hemoglobin 32.6H, Mean Corpuscular Hemoglobin Concent 31.5L, Red Cell Distribution Width 12.8, Platelet Count 186, Mean Platelet Volume 8.2, Neutrophils (%) (Auto) 76.0H, Lymphocytes (%) (Auto) 13.7L, Monocytes (%) (Auto) 6.1, Eosinophils (%) (Auto) 3.3H, Basophils (%) (Auto) 0.9, Sodium Level 141, Potassium Level 4.1, Chloride Level 108H, Carbon Dioxide Level 24, Anion Gap 9, Blood Urea Nitrogen 58H, Creatinine 2.8H, Estimat Glomerular Filtration Rate 21.2, Glucose Level 224H, Calcium Level 8.5, Total Bilirubin 0.3, Aspartate Amino Transf (AST/SGOT) 19, Alanine Aminotransferase (ALT/SGPT) 30, Alkaline Phosphatase 98, Pro-B-Type Natriuretic Peptide 21760V, Total Protein 7.4, Albumin 2.8L, Globulin 4.6, Albumin/Globulin Ratio 0.6L, Coccidioides Antibody (Comp Fix) [Pending], Cryptococcus Antigen [Pending] 07/26/18 12:15: Beta-(1,3)-D-Glucan [Pending] 07/26/18 12:16: Body Fluid pH 8.0, Body Fluid Lactate Dehydrogenase [Pending] 07/26/18 13:10: Urine Creatinine 72.9 Height (Feet): 5 Height (Inches): 2.00 Weight (Pounds): 158 Objective HEAD AND NECK: No JVD. No LAD. No thyromegaly. Extraocular movement intact. Pupils are reactive to light and accommodation. LUNGS: Clear to auscultation. CARDIAC: Regular rate and rhythm. S1 and S2. No murmur. No rub. ABDOMEN: Soft, nontender, and nondistended. No organomegaly. EXTREMITIES: Trace edema. No clubbing. No cyanosis. Cranial nerves II through XII within normal limit. Upper and lower extremities are grossly intact. Nabila Park MD Jul 26, 2018 16:58
--- NOTE | 2018-07-26 17:08 | Cardiology Report ---
APPROVED REPORT EXAM: Two-dimensional and M-mode echocardiogram with Doppler and color Doppler. INDICATION Vegetation M-Mode DIMENSIONS IVSd1.2 (0.7-1.1cm)Left Atrium (MM)3.6 (1.6-4.0cm) LVDd4.7 (3.5-5.6cm)Aortic Root2.7 (2.0-3.7cm) PWd1.0 (0.7-1.1cm)Aortic Cusp Exc.1.7 (1.5-2.0cm) LVDs3.1 (2.5-4.0cm) PWs1.3 cm Normal left ventricular chamber size, systolic function and wall motion. Left ventricular ejection fraction estimated to be 60-65 %. No evidence of left ventricular hypertrophy. No evidence of pericardial effusion. Left atrial size at upper limits of normal. Right cardiac chamber sizes are within normal limits. Focal aortic valve sclerosis with adequate cusp excursion. Thickened mitral valve leaflets with normal excursion. Mitral annulus and aortic root calcification. Pulmonic valve not well visualized. Normal tricuspid valve structure. IVC dilated at 2.3 cm with slight physiologic collapse suggestive of increased RA pressure. No discrete vegetations seen, however SBE may not be excluded by transthoracic 2-D echo. Consider MEME if clinically indicated. A color flow and spectral Doppler study was performed and revealed: Mild to moderate mitral regurgitation. Mitral inflow indicates normal left ventricular diastolic function. Mild tricuspid regurgitation. Tricuspid systolic velocities suggests peak right ventricular systolic pressure of 56 mmHg, consistent with moderate pulmonary hypertension. Moderate pulmonic regurgitation present.
[2018-07-26 20:00] VITALS: BP 165/75
[2018-07-26] MEDS ORDERED: Vancomycin 1gm/D5W 275ml IVPB ONE ×2 (20:00)
--- NOTE | 2018-07-26 20:08 | NUR ---
NURSE NOTES: Recvd pt. Pt was asleep but aroused easily by name. AOx4. Pt is on NC @ 3L with no sign of resp distress or sob. Resp are unlabored. No c/o pain, n/v. IV site is c/d/i and locked. Bed is in lowest position, call light within reach, will continue with plan of care.
[2018-07-26] MEDS: Atorvastatin 80mg tab ORAL SCH (20:24)
[2018-07-26] MEDS: TraZODone 50mg tab ORAL SCH (20:24)
--- NOTE | 2018-07-26 22:00 | NUR ---
NURSE NOTES: Report taken from Khanh Mcdonald RN. Belongings list reviewed with patient and RN at bedside. Patient alert and oriented but fatigued. IV site on Rt hand wrapped in bandage so it does not fall out, but clean, dry, patent, and intact. Skin dry and intact, bandaid covering Right side posterior wound from throacocentisis, no bleeding or saturtion visible. Patient on 3L O2. Bed in lowest position, call light within reach.
--- NOTE | 2018-07-26 22:15 | NUR ---
HAND-OFF: Report given to Ruben Gambino RN.
--- NOTE | 2018-07-26 22:40 | NUR ---
NURSE NOTES: Patient refused swab for VRE and MRSA.
[2018-07-27] VITALS (9 sets, daily range): BP systolic 151–173; BP diastolic 65–81
[2018-07-27] MEDS: Morphine Sulfate 2mg/ml Inj IVP PRN ×4 (04:41→23:47)
[2018-07-27] MEDS ORDERED: Miralax 17gm pkt ORAL PRN (07:15)
[2018-07-27] MEDS ORDERED: Albuterol/Ipratropium 3ml neb HHN PRN (07:15)
[2018-07-27] MEDS ORDERED: Morphine Sulfate 2mg/ml Inj IVP PRN (07:30)
--- NOTE | 2018-07-27 07:33 | NUR ---
HAND-OFF: Report given to JENNIFER Antoine.
--- NOTE | 2018-07-27 07:54 | NUR ---
NURSE NOTES: Received report from All RODRIGUEZ. patient is awake alert and oriented, on 3L NC.Patient reports her breathing feels fine and she is not in distress. Per report, patient refused MRSA and VRE swabs. Some swelling and warmness noted in left lower leg, will report to MD. Side rails upx2, bed low and locked, call light in reach. Will continue to monitor.
[2018-07-27 08:35] LABS: BASOPHILS % (AUTO) 0.9 % (0.0-2.0); EOSINOPHILS % (AUTO) 5.3 % (0.0-3.0); HEMATOCRIT 25.1 % (37.0-47.0); HEMOGLOBIN 8.1 G/DL (12.0-16.0); LYMPHOCYTES % (AUTO) 26.8 % (20.0-45.0); MEAN CORPUSCULAR VOLUME 101 FL (80-99); MONOCYTES % (AUTO) 9.8 % (1.0-10.0); NEUTROPHILS % (AUTO) 57.2 % (45.0-75.0); PLATELET COUNT 181 K/UL (150-450); RED BLOOD COUNT 2.49 M/UL (4.20-5.40); RED CELL DISTRIBUTION WIDTH 12.2 % (11.6-14.8)
[2018-07-27 08:55] LABS: ANION GAP 8 mmol/L (5-15); BLOOD UREA NITROGEN 51 mg/dL (7-18); CALCIUM 8.1 MG/DL (8.5-10.1); CARBON DIOXIDE 24 MMOL/L (21-32); CHLORIDE 110 MMOL/L (98-107); CREATININE 2.5 MG/DL (0.55-1.30); POTASSIUM 3.7 MMOL/L (3.5-5.1); SODIUM 142 MMOL/L (136-145)
[2018-07-27] MEDS ORDERED: LORazepam 0.5mg tab ORAL PRN (09:00)
[2018-07-27] MEDS: Carvedilol 12.5mg tab ORAL SCH ×2 (09:57→20:17)
[2018-07-27] MEDS: Calcium Acetate 667mg Tab ORAL SCH ×3 (09:57→18:34)
[2018-07-27] MEDS: Cefepime HCl 1 GM in D5W 55 ML IVPB SCH (09:59)
[2018-07-27] MEDS: Heparin 5000 units/ml inj SUBQ SCH ×3 (10:00→20:29)
--- NOTE | 2018-07-27 10:11 | NUR ---
NURSE NOTES: Patient refused heparin after medication was already drawn into syringe. Medication was wasted. Educated patient on risks of refusing heparin, patient stated she understood the risks and continued to refuse. Will continue to monitor.
--- NOTE | 2018-07-27 10:21 | NUR ---
NURSE NOTES: Reported hbg of 8.[address] Godinez and reported to MD that left arm and leg are swollen, painful and warm to touch. MD aware of hbg and reports to order venous duplex for left extremities. Will place order and continue to monitor. No other orders except for ultrasound at this time.
--- NOTE | 2018-07-27 11:06 | Nephrology Progress Note ---
Assessment/Plan Assessment 1. MICHELLE 2.CKD 3.HTN 4.CHF Plan Plan start lasix 40 and titrate based on fluid status continue current monitoring renal function avoid NSAID Replace electrolyte as need it Subjective Subjective alert and awake c/o mild SOB Objective Objective Last 24 Hour Vital Signs Date Time Temp Pulse Resp B/P (MAP) Pulse Ox O2 Delivery O2 Flow Rate FiO2 07/27/18 09:58 62 162/65 07/27/18 09:57 62 162/65 07/27/18 08:00 97.8 62 14 162/65 (97) 99 07/27/18 04:00 98.5 62 19 165/75 (105) 97 07/27/18 00:00 98.3 68 17 152/81 (104) 96 07/26/18 23:00 Nasal Cannula 3.0 07/26/18 21:00 Nasal Cannula 3.0 07/26/18 20:25 68 137/67 07/26/18 20:00 72 07/26/18 20:00 98.2 74 18 165/75 (105) 95 07/26/18 19:51 98 Nasal Cannula 3.0 32 07/26/18 19:51 68 18 Nasal Cannula 3.0 32 07/26/18 19:51 Nasal Cannula 3.0 32 07/26/18 16:00 67 07/26/18 16:00 97.9 65 20 137/67 (90) 95 07/26/18 12:00 97.7 72 18 152/72 (98) 96 07/26/18 12:00 67 Intake and Output 07/26/18 07/27/18 19:00 07:00 Intake Total 660 ml Balance 660 ml Intake Oral 660 ml # Voids 1 Laboratory Tests 07/26/18 12:15: Beta-(1,3)-D-Glucan [Pending] 07/26/18 12:16: Body Fluid pH 8.0, Body Fluid Lactate Dehydrogenase [Pending] 07/26/18 13:10: Urine Eosinophils None seen, Urine Random Creatinine [Pending], Urine Random Microalbumin [Pending], Urine Random Total Protein 450H, Urine Random Sodium 44 , Urine Creatinine 72.9, Urine Microalbumin/Creatinine Ratio [Pending], Urine Potassium Timed 26 07/26/18 16:20: Random Vancomycin Level 11.0 07/27/18 08:00: White Blood Count 4.0L, Red Blood Count 2.49L, Hemoglobin 8.1L, Hematocrit 25.1L , Mean Corpuscular Volume 101H, Mean Corpuscular Hemoglobin 32.5H, Mean Corpuscular Hemoglobin Concent 32.1, Red Cell Distribution Width 12.2, Platelet Count 181, Mean Platelet Volume 7.3, Neutrophils (%) (Auto) 57.2, Lymphocytes (% ) (Auto) 26.8, Monocytes (%) (Auto) 9.8, Eosinophils (%) (Auto) 5.3H, Basophils (%) (Auto) 0.9, Sodium Level 142, Potassium Level 3.7, Chloride Level 110H, Carbon Dioxide Level 24, Anion Gap 8, Blood Urea Nitrogen 51H, Creatinine 2.5H, Estimat Glomerular Filtration Rate 24.2, Glucose Level 155H, Calcium Level 8.1L , Lactate Dehydrogenase 215, Random Vancomycin Level 20.4 Height (Feet): 5 Height (Inches): 2.00 Weight (Pounds): 158 Objective HEAD AND NECK: No JVD. No LAD. No thyromegaly. Extraocular movement intact. Pupils are reactive to light and accommodation. LUNGS: Clear to auscultation. CARDIAC: Regular rate and rhythm. S1 and S2. No murmur. No rub. ABDOMEN: Soft, nontender, and nondistended. No organomegaly. EXTREMITIES: Trace edema. No clubbing. No cyanosis. Cranial nerves II through XII within normal limit. Upper and lower extremities are grossly intact. Nabila Park MD Jul 27, 2018 11:06
--- NOTE | 2018-07-27 11:50 | NUR ---
NURSE NOTES: Patient refused venous duplex. Educated on risks of refusal, patient reports understanding but still refuses. Will follow up and continue to monitor. Addendum: 07/27/18 at 1226 by Elina Tinsley RN Add: Dr. Godinez aware patient refused venous duplex ultrasound
--- NOTE | 2018-07-27 12:13 | Pulmonology Progress Note ---
Assessment/Plan Problems: (1) Acute respiratory failure (2) Pleural effusion (3) Solitary kidney (4) Diabetes mellitus (5) Diabetic neuropathy (6) Hypertension Assessment/Plan continue current meds psych f/u doing better med/surg Subjective ROS Limited/Unobtainable: No Constitutional: Reports: no symptoms HEENT: Repors: no symptoms Respiratory: Reports: no symptoms Allergies: Coded Allergies: LISINOPRIL (Verified Allergy, Unknown, 07/16/18) LOSARTAN (Verified Allergy, Unknown, 07/16/18) Objective Last 24 Hour Vital Signs Date Time Temp Pulse Resp B/P (MAP) Pulse Ox O2 Delivery O2 Flow Rate FiO2 07/27/18 12:00 97.3 69 18 172/79 (110) 98 07/27/18 11:34 97.8 07/27/18 09:58 62 162/65 07/27/18 09:57 62 162/65 07/27/18 08:00 97.8 62 14 162/65 (97) 99 07/27/18 04:00 98.5 62 19 165/75 (105) 97 07/27/18 00:00 98.3 68 17 152/81 (104) 96 07/26/18 23:00 Nasal Cannula 3.0 07/26/18 21:00 Nasal Cannula 3.0 07/26/18 20:25 68 137/67 07/26/18 20:00 72 07/26/18 20:00 98.2 74 18 165/75 (105) 95 07/26/18 19:51 98 Nasal Cannula 3.0 32 07/26/18 19:51 68 18 Nasal Cannula 3.0 32 07/26/18 19:51 Nasal Cannula 3.0 32 07/26/18 16:00 67 07/26/18 16:00 97.9 65 20 137/67 (90) 95 Intake and Output 07/26/18 07/27/18 19:00 07:00 Intake Total 660 ml Balance 660 ml Intake Oral 660 ml # Voids 1 Objective refusing care, Microbiology Date/Time Source Procedure Growth Status 07/25/18 11:50 Blood Blood Culture - Preliminary NO GROWTH AFTER 24 HOURS Resulted 07/25/18 11:40 Blood Blood Culture - Preliminary NO GROWTH AFTER 24 HOURS Resulted 07/25/18 02:25 Blood Blood Culture - Preliminary Staphylococcus Sp Coag Neg Resulted 07/25/18 02:15 Blood Blood Culture - Preliminary Staphylococcus Sp Coag Neg Resulted 07/26/18 13:10 Indwelling Cath Urine Culture - Preliminary NO GROWTH Resulted Laboratory Tests 07/26/18 12:15: Beta-(1,3)-D-Glucan [Pending] 07/26/18 12:16: Body Fluid pH 8.0, Body Fluid Lactate Dehydrogenase 61 07/26/18 13:10: Urine Eosinophils None seen, Urine Random Creatinine [Pending], Urine Random Microalbumin [Pending], Urine Random Total Protein 450H, Urine Random Sodium 44 , Urine Creatinine 72.9, Urine Microalbumin/Creatinine Ratio [Pending], Urine Potassium Timed 26 07/26/18 16:20: Random Vancomycin Level 11.0 07/27/18 08:00: White Blood Count 4.0L, Red Blood Count 2.49L, Hemoglobin 8.1L, Hematocrit 25.1L , Mean Corpuscular Volume 101H, Mean Corpuscular Hemoglobin 32.5H, Mean Corpuscular Hemoglobin Concent 32.1, Red Cell Distribution Width 12.2, Platelet Count 181, Mean Platelet Volume 7.3, Neutrophils (%) (Auto) 57.2, Lymphocytes (% ) (Auto) 26.8, Monocytes (%) (Auto) 9.8, Eosinophils (%) (Auto) 5.3H, Basophils (%) (Auto) 0.9, Sodium Level 142, Potassium Level 3.7, Chloride Level 110H, Carbon Dioxide Level 24, Anion Gap 8, Blood Urea Nitrogen 51H, Creatinine 2.5H, Estimat Glomerular Filtration Rate 24.2, Glucose Level 155H, Calcium Level 8.1L , Lactate Dehydrogenase 215, Random Vancomycin Level 20.4 Current Medications Medications (Trade) Dose Ordered Sig/Zara Route PRN Reason Start Time Stop Time Status Last Admin Dose Admin Acetaminophen (Tylenol) 650 mg Q4H PRN ORAL fever (temp>100.5F) 07/27/18 07:15 08/24/18 07:14 Acetaminophen/ Hydrocodone Bitart ([place] 10/325) 1 tab Q4H PRN ORAL For Pain 07/27/18 12:15 08/03/18 12:14 UNV Albuterol/ Ipratropium (Albuterol/ Ipratropium) 3 ml Q4H PRN HHN Shortness of Breath 07/27/18 07:15 08/01/18 07:14 Amlodipine Besylate (Norvasc) 10 mg DAILY ORAL 07/27/18 09:00 08/24/18 08:59 07/27/18 09:58 Atorvastatin Calcium (Lipitor) 80 mg BEDTIME ORAL 07/27/18 21:00 08/24/18 20:59 Calcium Acetate (Phoslo) 667 mg TID ORAL 07/27/18 09:00 08/24/18 08:59 07/27/18 09:57 Carvedilol (Coreg) 37.5 mg EVERY 12 HOURS ORAL 07/27/18 09:00 08/24/18 08:59 07/27/18 09:57 Cefepime HCl 1 gm/ Dextrose 55 ml @ 110 mls/hr Q24H IVPB 07/27/18 09:00 08/02/18 08:59 07/27/18 09:59 Clonidine HCl (Catapres Tab) 0.1 mg Q4H PRN ORAL For High Blood Pressure 07/27/18 12:15 08/26/18 12:14 UNV Clopidogrel Bisulfate (Plavix) 75 mg DAILY ORAL 07/27/18 09:00 08/24/18 08:59 07/27/18 09:58 Gabapentin (Neurontin) 300 mg THREE TIMES A DAY ORAL 07/27/18 09:00 08/24/18 08:59 07/27/18 09:58 Heparin Sodium (Porcine) (Heparin 5000 units/ml) 5,000 units EVERY 12 HOURS SUBQ 07/27/18 09:00 08/24/18 08:59 Lorazepam (Ativan) 0.5 mg DAILYPRN PRN ORAL For Anxiety 07/27/18 09:00 08/03/18 08:59 Mirtazapine (Remeron) 7.5 mg BEDTIME ORAL 07/27/18 21:00 08/24/18 20:59 Morphine Sulfate (Morphine Sulfate) 4 mg Q4H PRN IVP Severe Pain (Pain Scale 7-10) 07/27/18 15:30 08/01/18 07:29 UNV Ondansetron HCl (Zofran) 4 mg Q6H PRN IVP Nausea & Vomiting 07/27/18 07:15 08/24/18 07:14 Oxycodone/ Acetaminophen (Percocet 10/325) 1 tab Q6H PRN ORAL Moderate Pain (Pain Scale 4-6) 07/27/18 07:30 08/01/18 07:29 Polyethylene Glycol (Miralax) 17 gm DAILYPRN PRN ORAL Constipation 07/27/18 07:15 08/24/18 07:14 Temazepam (Restoril) 15 mg HSPRN PRN ORAL Insomnia 07/27/18 07:15 08/01/18 07:14 Trazodone HCl (Desyrel) 50 mg BEDTIME ORAL 07/27/18 21:00 08/24/18 20:59 Vancomycin HCl (Vanco rx to dose) 1 ea DAILY PRN MISC . 07/27/18 09:00 08/24/18 07:59 Hakeem Godinez MD Jul 27, 2018 12:12
[2018-07-27] MEDS ORDERED: HYDROcodone/Acetamin 10/325 tab ORAL PRN (12:15)
--- NOTE | 2018-07-27 13:10 | GI Initial Consult Note ---
History of Present Illness General Date patient seen: Jul 27, 2018 Time patient seen: 13:10 Reason for Hospitalization: Dyspnea/Respdistress Referring physician: KILLIAN SZYMANSKI Reason for Consultation: ANEMIA Present Illness HPI Patient present with complaints of shortness of breath Reports that she was discharge yesterday with pneumonia Since she was home her breathing continued to worsen Also mild chest discomfort and heaviness Denies any vomiting or diarrhea she has had significantly decreased oral intake Denies any neck pain or photophobia GI consulted for anemia. Time ROS limited, patient was seen awake alert x4 however at this time. She was recently discharged from the hospital, now presents today with shortness of breath. During her recent admission, OB stool was negative and the patient was noted to have macrocytic anemia. She initially had epigastric pain, but denies any at this time. No history of endoscopy / colonoscopy. Patient is Jehova's witness. Noted LLE edema. The patient has left sided edema. Pending duplex. Home Meds Reported Medications Unable to Obtain Medications (UNABLE TO OBTAIN MEDS) 1 Ea Ea 07/25/18 Trazodone Hcl* (DESYREL*) 50 Mg Tablet, 50 MG ORAL BEDTIME 07/15/18 Bisacodyl (DULCOLAX) 10 Mg Supp.rect, 10 MG RC DAILY PRN for IF MOM INEFFECTIVE 07/15/18 Ferrous Sulfate* (FERROUS SULFATE*) 325 Mg Tablet, 325 MG ORAL TWICE A DAY 07/15/18 Multivitamin with Minerals (Multivitamins with Minerals) 1 Each Tablet, 1 TAB ORAL DAILY 07/15/18 Lorazepam* (ATIVAN*) 0.5 Mg Tablet, 0.5 MG ORAL DAILY PRN for For Anxiety 07/15/18 Acetaminophen* (ACETAMINOPHEN 325MG TABLET*) 325 Mg Tablet, 650 MG ORAL Q6H PRN for Mild Pain (Pain Scale 1-3) 07/15/18 Polyethylene Glycol 3350* (MIRALAX*) 17 Gm Powd.pack, 17 GM ORAL DAILY for HOLD FOR LBM 07/15/18 Oxycodone Hcl Ir* (ROXICODONE IR*) 5 Mg Tablet, 5 MG ORAL Q4H PRN for Moderate Pain (Pain Scale 4-6) 07/15/18 Ondansetron* (ZOFRAN*) 4 Mg/2 Ml Vial, 4 MG IVP Q8H PRN for Nausea & Vomiting 07/15/18 Nitroglycerin (NITROSTAT) 0.4 Mg Tab.subl, 0.4 MG SL Q5M X3 DOSES PRN for CHEST PAIN 07/15/18 Hydromorphone HCl/Pf (Dilaudid 0.5 mg/0.5 ml Syringe) 0.5 Mg/0.5 Ml Syringe, 0.2 MG IVP Q4HR PRN for Breakthrough Pain 07/15/18 Iron Sucrose (Venofer) 100 Mg/5 Ml Vial, 100 MG IVP DAILY 07/15/18 Insulin Lispro (HUMALOG) 100 Unit/1 Ml Cartridge, 6 UNITS SUBQ AC 07/15/18 Mirtazapine* (MIRTAZAPINE*) 7.5 Mg Tablet, 7.5 MG ORAL BEDTIME 07/15/18 Melatonin (MELATONIN) 3 Mg Tablet, 3 MG ORAL BEDTIME 07/15/18 Isosorbide Dinitrate (Isordil) 40 Mg Tablet, 40 MG PO TID 07/15/18 Oxycodone Hcl/Acetaminophen 10-325* (OXYCODONE-ACETAMINOPHEN 10-325*) 1 Each Tablet, 1 TAB ORAL Q4H PRN for Severe Pain (Pain Scale 7-10) 07/15/18 Gabapentin* (GABAPENTIN*) 300 Mg Capsule, 300 MG ORAL THREE TIMES A DAY 07/15/18 Insulin Lispro (HUMALOG) 100 Unit/1 Ml Cartridge, 0 SUBQ QID for BEFORE MEALS AND AT NIGHT 07/15/18 Hydralazine Hcl* (HYDRALAZINE HCL*) 100 Mg Tablet, 100 MG ORAL EVERY 8 HOURS, TAB 07/15/18 Heparin Sod (Porcine) (HEPARIN SODIUM*) 5 000/1 Ml Vial, 5000 UNITS SUBQ EVERY 12 HOURS, VIAL 07/15/18 Furosemide* (LASIX*) 40 Mg Tablet, 40 MG ORAL TWICE A DAY, TAB 0 Refills 07/15/18 Ergocalciferol (Vitamin D2) (VITAMIN D2) 2,000 Unit Tablet, 17950 UNIT PO WEEKLY 07/15/18 Epoetin Yordan (PROCRIT) 2,000 Unit/1 Ml Vial, 4000 UNIT SUBQ 3XW for GIVE ON MON AND THURS 07/15/18 Docusate Sodium* (COLACE*) 100 Mg Capsule, 100 MG ORAL TWICE A DAY, CAP 07/15/18 Clopidogrel Bisulfate* (PLAVIX*) 75 Mg Tablet, 75 MG ORAL DAILY, TAB 07/15/18 Carvedilol (Coreg) 12.5 Mg Tablet, 37.5 MG ORAL EVERY 12 HOURS, TAB 07/15/18 Calcium Acetate (CALCIUM ACETATE) 667 Mg Capsule, 667 MG PO TID for WITH MEALS 07/15/18 Atorvastatin Calcium* (LIPITOR*) 80 Mg Tablet, 80 MG ORAL BEDTIME, TAB 07/15/18 Aspirin* (ASPIRIN*) 81 Mg Tab.chew, 81 MG ORAL DAILY, TAB 07/15/18 Amlodipine Besylate* (AMLODIPINE BESYLATE*) 10 Mg Tablet, 10 MG ORAL DAILY, TAB 07/15/18 Insulin Glargine (LANTUS) 100 Unit/1 Ml Insuln.pen, 15 UNITS SUBQ BID 06/09/17 Med list reviewed/reconciled: Yes Allergies: Coded Allergies: LISINOPRIL (Verified Allergy, Unknown, 07/16/18) LOSARTAN (Verified Allergy, Unknown, 07/16/18) Patient History History Provided By: Patient, Medical Record PMH Narrative Hx Cardiac Problems: Yes - ACS Hx Hypertension: Yes Hx Diabetes: Yes Hx Neurological Problems: Yes Hx Cerebrovascular Accident: Yes - 01/2018 Hx Paralysis: Yes - Left side hemiparesis Hx Peripheral Neuropathy: Yes Hx Weakness: Yes - left side Social History: Denies: smoking, alcohol use, drug use, other Review of Systems All Other Systems: negative except mentioned in HPI Physical Exam Vital Signs Date Time Temp Pulse Resp B/P (MAP) Pulse Ox O2 Delivery O2 Flow Rate FiO2 07/25/18 02:02 97.9 90 36 190/71 93 Room Air 07/25/18 08:00 3.0 07/25/18 20:06 32 Sp02 EP Interpretation: reviewed, normal Labs Laboratory Tests Test 07/26/18 13:10 07/26/18 16:20 07/27/18 08:00 Urine Eosinophils None seen (NONE SEEN) Urine Random Creatinine Pending Urine Random Microalbumin Pending Urine Random Total Protein 450 MG/DL (< 11.9) H Urine Random Sodium 44 mmol/L (20-110) Urine Creatinine 72.9 MG/DL (30.0-125.0) Urine Microalbumin/Creatinine Ratio Pending Urine Potassium Timed 26 mmol/L (12-62) Random Vancomycin Level 11.0 ug/mL 20.4 ug/mL White Blood Count 4.0 K/UL (4.8-10.8) L Red Blood Count 2.49 M/UL (4.20-5.40) L Hemoglobin 8.1 G/DL (12.0-16.0) L Hematocrit 25.1 % (37.0-47.0) L Mean Corpuscular Volume 101 FL (80-99) H Mean Corpuscular Hemoglobin 32.5 PG (27.0-31.0) H Mean Corpuscular Hemoglobin Concent 32.1 G/DL (32.0-36.0) Red Cell Distribution Width 12.2 % (11.6-14.8) Platelet Count 181 K/UL (150-450) Mean Platelet Volume 7.3 FL (6.5-10.1) Neutrophils (%) (Auto) 57.2 % (45.0-75.0) Lymphocytes (%) (Auto) 26.8 % (20.0-45.0) Monocytes (%) (Auto) 9.8 % (1.0-10.0) Eosinophils (%) (Auto) 5.3 % (0.0-3.0) H Basophils (%) (Auto) 0.9 % (0.0-2.0) Sodium Level 142 MMOL/L (136-145) Potassium Level 3.7 MMOL/L (3.5-5.1) Chloride Level 110 MMOL/L (98-107) H Carbon Dioxide Level 24 MMOL/L (21-32) Anion Gap 8 mmol/L (5-15) Blood Urea Nitrogen 51 mg/dL (7-18) H Creatinine 2.5 MG/DL (0.55-1.30) H Estimat Glomerular Filtration Rate 24.2 mL/min (>60) Glucose Level 155 MG/DL (74-106) H Calcium Level 8.1 MG/DL (8.5-10.1) L Lactate Dehydrogenase 215 U/L (81-234) General Appearance: well appearing, no apparent distress, alert Head: normocephalic EENT: PERRL/EOMI, normal ENT inspection Neck: supple Respiratory: normal breath sounds, no respiratory distress Cardiovascular: normal rate Gastrointestinal: normal inspection, non tender, soft, normal bowel sounds, non -distended Rectal: deferred Genitourinary: no CVA tenderness Musculoskeletal: normal inspection, back normal Neurologic: normal inspection, alert, oriented x3, responsive Psychiatric: normal inspection, judgement/insight normal, memory normal Skin: normal inspection, normal color, no rash, warm/dry, palpation normal, well hydrated Lymphatic: normal inspection, no adenopathy Current Medications Current Medications Medications (Trade) Dose Ordered Sig/Zara Route PRN Reason Start Time Stop Time Status Last Admin Dose Admin Acetaminophen (Tylenol) 650 mg Q4H PRN ORAL fever (temp>100.5F) 07/27/18 07:15 08/24/18 07:14 Acetaminophen/ Hydrocodone Bitart ([place] 10/325) 1 tab Q4H PRN ORAL mild pain 07/27/18 12:15 08/03/18 12:14 Albuterol/ Ipratropium (Albuterol/ Ipratropium) 3 ml Q4H PRN HHN Shortness of Breath 07/27/18 07:15 08/01/18 07:14 Amlodipine Besylate (Norvasc) 10 mg DAILY ORAL 07/27/18 09:00 08/24/18 08:59 07/27/18 09:58 Atorvastatin Calcium (Lipitor) 80 mg BEDTIME ORAL 07/27/18 21:00 08/24/18 20:59 Calcium Acetate (Phoslo) 667 mg TID ORAL 07/27/18 09:00 08/24/18 08:59 07/27/18 13:05 Carvedilol (Coreg) 37.5 mg EVERY 12 HOURS ORAL 07/27/18 09:00 08/24/18 08:59 07/27/18 09:57 Cefepime HCl 1 gm/ Dextrose 55 ml @ 110 mls/hr Q24H IVPB 07/27/18 09:00 08/02/18 08:59 07/27/18 09:59 Clonidine HCl (Catapres Tab) 0.1 mg Q4H PRN ORAL SBP>160 07/27/18 12:15 08/26/18 12:14 Clopidogrel Bisulfate (Plavix) 75 mg DAILY ORAL 07/27/18 09:00 08/24/18 08:59 07/27/18 09:58 Gabapentin (Neurontin) 300 mg THREE TIMES A DAY ORAL 07/27/18 09:00 08/24/18 08:59 07/27/18 13:05 Heparin Sodium (Porcine) (Heparin 5000 units/ml) 5,000 units EVERY 12 HOURS SUBQ 07/27/18 09:00 08/24/18 08:59 Lorazepam (Ativan) 0.5 mg DAILYPRN PRN ORAL For Anxiety 07/27/18 09:00 08/03/18 08:59 Mirtazapine (Remeron) 7.5 mg BEDTIME ORAL 07/27/18 21:00 08/24/18 20:59 Morphine Sulfate (Morphine Sulfate) 4 mg Q4H PRN IVP Severe Pain (Pain Scale 7-10) 07/27/18 12:16 08/01/18 12:15 07/27/18 13:05 Ondansetron HCl (Zofran) 4 mg Q6H PRN IVP Nausea & Vomiting 07/27/18 07:15 08/24/18 07:14 Oxycodone/ Acetaminophen (Percocet 10/325) 1 tab Q6H PRN ORAL Moderate Pain (Pain Scale 4-6) 07/27/18 07:30 08/01/18 07:29 Polyethylene Glycol (Miralax) 17 gm DAILYPRN PRN ORAL Constipation 07/27/18 07:15 08/24/18 07:14 Temazepam (Restoril) 15 mg HSPRN PRN ORAL Insomnia 07/27/18 07:15 08/01/18 07:14 Trazodone HCl (Desyrel) 50 mg BEDTIME ORAL 07/27/18 21:00 08/24/18 20:59 Vancomycin HCl (Vanco rx to dose) 1 ea DAILY PRN MISC . 07/27/18 09:00 08/24/18 07:59 GI: Plan Problems: (1) Anemia (2) Abdominal pain Plan s/p thoracentesis send for OB stool r/o GI bleed monitor H&H, prn transfusions bowel regime ppi adv diet as tolerated fu cardio/pulmonary recs fu labs Discussed with Dr. Yarbrough. Thank you for this patient referral, we will follow. The patient was seen and examined at bedside and all new and available data was reviewed in the patients chart. I agree with the above findings, impression and plan. (Patient seen earlier today. Signature stamp does not reflect patient encounter time.). - MD Sheila Carlos,[facility] CHIEF ENGINEER Jul 27, 2018 13:10
--- NOTE | 2018-07-27 13:31 | NUR ---
NURSE NOTES: MD and pharmacy aware that morphine administered less than 4 hours apart. Per Haylee in pharmacy, ok to administer less than 4 hours apart because order was changed by MD. Will continue to monitor.
--- NOTE | 2018-07-27 13:40 | NUR ---
RD ASSESSMENT & RECOMMENDATIONS SEE CARE ACTIVITY FOR COMPLETE ASSESSMENT DAILY ESTIMATED NEEDS: Needs based on Renal, DM, cardiac 55.5kg adj 25-30 kcals/kg 9082-9430 total kcals .8-1.2 g protein/kg 44-67 g total protein 25-30 mL/kg 2202-2085 total fluid mLs NUTRITION DIAGNOSIS: Decreased sodium and potassium needs r/t renal dysfunction and cardiac history as evidenced by elev Creat (2.5), elev K on adm (5.7), elev BNP (42388), elev BP, h/o CVA. CURRENT DIET: Regular PO DIET RECOMMENDATIONS: RENAL DIET / texture as tolerated ADDITIONAL RECOMMENDATIONS: 1) Monitor lytes and need for dietary restriction 2) Obtain a standing scale wt as able 3) Add snacks BID in b/w meals w/ current fair po intake 4) Diet texture as tolerated/ noted poor dentition -> Consider [employer] for h/o CVA w/ L side weakness 5) NEPRO BID w/ poor po intake
--- NOTE | 2018-07-27 14:47 | General Progress Note ---
Assessment/Plan Problem List: (1) Acute respiratory failure ICD Codes: J96.00 - Acute respiratory failure, unspecified whether with hypoxia or hypercapnia SNOMED: 55413148 (2) Pleural effusion ICD Codes: J90 - Pleural effusion, not elsewhere classified SNOMED: 32650205 (3) Hypertension ICD Codes: I10 - Essential (primary) hypertension SNOMED: 53865610 (4) Diabetes mellitus ICD Codes: E11.9 - Type 2 diabetes mellitus without complications SNOMED: 12757918 (5) ATN (acute tubular necrosis) ICD Codes: N17.0 - Acute kidney failure with tubular necrosis SNOMED: 72908934 (6) Abdominal pain ICD Codes: R10.9 - Unspecified abdominal pain SNOMED: 61757439 Status: stable, progressing Assessment/Plan o2 pulm tx pt diet eval bp bs control cbc bmp am dc plan w hh Subjective Constitutional: Reports: weakness Allergies: Coded Allergies: LISINOPRIL (Verified Allergy, Unknown, 07/16/18) LOSARTAN (Verified Allergy, Unknown, 07/16/18) All Systems: reviewed and negative except above Subjective o2nc tired in bed Objective Last 24 Hour Vital Signs Date Time Temp Pulse Resp B/P (MAP) Pulse Ox O2 Delivery O2 Flow Rate FiO2 07/27/18 14:08 68 151/81 (104) 07/27/18 13:49 98 Nasal Cannula 3.0 32 07/27/18 13:49 Nasal Cannula 3.0 32 07/27/18 13:46 68 16 Nasal Cannula 2.0 28 07/27/18 13:38 97.3 07/27/18 12:50 69 24 170/72 (104) 07/27/18 12:00 97.3 69 18 172/79 (110) 98 07/27/18 11:34 97.8 07/27/18 09:58 62 162/65 07/27/18 09:57 62 162/65 07/27/18 09:00 Nasal Cannula 3.0 Nasal Cannula 3.0 07/27/18 08:00 97.8 62 14 162/65 (97) 99 07/27/18 04:00 98.5 62 19 165/75 (105) 97 07/27/18 00:00 98.3 68 17 152/81 (104) 96 07/26/18 23:00 Nasal Cannula 3.0 07/26/18 21:00 Nasal Cannula 3.0 07/26/18 20:25 68 137/67 07/26/18 20:00 72 07/26/18 20:00 98.2 74 18 165/75 (105) 95 07/26/18 19:51 98 Nasal Cannula 3.0 32 07/26/18 19:51 68 18 Nasal Cannula 3.0 32 07/26/18 19:51 Nasal Cannula 3.0 32 07/26/18 16:00 67 07/26/18 16:00 97.9 65 20 137/67 (90) 95 Intake and Output 07/26/18 07/27/18 19:00 07:00 Intake Total 660 ml Balance 660 ml Intake Oral 660 ml # Voids 1 Laboratory Tests 07/26/18 16:20: Random Vancomycin Level 11.0 07/27/18 08:00: Random Vancomycin Level 20.4, White Blood Count 4.0L, Red Blood Count 2.49L, Hemoglobin 8.1L, Hematocrit 25.1L, Mean Corpuscular Volume 101H, Mean Corpuscular Hemoglobin 32.5H, Mean Corpuscular Hemoglobin Concent 32.1, Red Cell Distribution Width 12.2, Platelet Count 181, Mean Platelet Volume 7.3, Neutrophils (%) (Auto) 57.2, Lymphocytes (%) (Auto) 26.8, Monocytes (%) (Auto) 9.8, Eosinophils (%) (Auto) 5.3H, Basophils (%) (Auto) 0.9, Sodium Level 142, Potassium Level 3.7, Chloride Level 110H, Carbon Dioxide Level 24, Anion Gap 8, Blood Urea Nitrogen 51H, Creatinine 2.5H, Estimat Glomerular Filtration Rate 24.2, Glucose Level 155H, Calcium Level 8.1L, Lactate Dehydrogenase 215 Height (Feet): 5 Height (Inches): 2.00 Weight (Pounds): 158 General Appearance: lethargic EENT: normal ENT inspection Neck: normal alignment Cardiovascular: normal peripheral pulses, normal rate, regular rhythm Respiratory/Chest: chest wall non-tender, lungs clear, normal breath sounds Abdomen: normal bowel sounds, non tender, soft Extremities: normal inspection Edema: no edema noted Arm (L), no edema noted Arm (R), no edema noted Leg (L), no edema noted Leg (R), no edema noted Pedal (L), no edema noted Pedal (R), no edema noted Generalized Neurologic: responsive, motor weakness Skin: normal pigmentation, warm/dry Naun Geiger DO Jul 27, 2018 14:47
--- NOTE | 2018-07-27 15:11 | Infectious Diseases Prog Note ---
Assessment/Plan Assessment/Plan Abx: IV Vancomycin 07/25- Cefepime 07/25- Assessment SOB, worsening- ?worsening edema vs infection -07/26 CXR: Improved but still extensive bilateral interstitial and airspace edema versus infiltrates Suspect increasing left pleural effusion -07/25 CXR: Cardiomegaly. Bilateral extensive infiltrates versus edema and bilateral pleural effusions Gram positive bacteremic, -likely contamiannant -07/25 Bcx 3/4 CONS; 07/25 NTD, p -2d echo: no vegetatioms Moderate b/l pleural effusions -07/26 SP R thoracentesis: wbc 240, LDH 61, pH 8- transudate; cx p Afebrile No leukocytosis Recent Probable PNA, s/p Rx -07/19 CT chest: : Marked cardiomegaly. Bilateral pleural effusions. Pulmonary interstitial septal thickening, diffuse faint groundglass opacity, scattered slightly denser parenchymal opacities bilaterally. Findings most likely represent pulmonary edema. However, inflammatory etiologies are also possible. Mediastinal, possible bilateral hilar, possible left axillary lymphadenopathy. This is nonspecific, could indicate inflammatory process, lymphoproliferative disorder, metastatic lymphadenopathy among other possibilities. Splenomegaly. Suspect related to the above. Hepatomegaly -CXR: Reduced lung volumes with bibasilar infiltrates. -influenza sc neg -Bcx neg Recent Acute CHF exacerbation MICHELLE, imporved asthma HTN DM CVA w/ L side weakness [place] resident Plan: -Continue empiric IV Vancomycin and Cefepime #3 pending sputum culture2 -low threshold to add PO Fluconazole if no improvement. -07/20 SP Levaquin #5 -07/15 SP Unasyn x1 -f/u repaet Bcx x2 -f/u pleural fluid cx -f/u sp cx (fungal, bacterial), Cocci, CrAg, fungitell, legionella ag urine -Monitor CBC/C MP, temperatures -Aspiration precautions -Cards, Renal f/u Thank you for this consultation. Will continue to follow along with you. Subjective Allergies: Coded Allergies: LISINOPRIL (Verified Allergy, Unknown, 07/16/18) LOSARTAN (Verified Allergy, Unknown, 07/16/18) Subjective afebrile s/p R thoracenteseis today bacteremic Objective Vital Signs Last 24 Hour Vital Signs Date Time Temp Pulse Resp B/P (MAP) Pulse Ox O2 Delivery O2 Flow Rate FiO2 07/27/18 14:08 68 151/81 (104) 07/27/18 13:49 98 Nasal Cannula 3.0 32 07/27/18 13:49 Nasal Cannula 3.0 32 07/27/18 13:46 68 16 Nasal Cannula 2.0 28 07/27/18 13:38 97.3 07/27/18 12:50 69 24 170/72 (104) 07/27/18 12:00 97.3 69 18 172/79 (110) 98 07/27/18 11:34 97.8 07/27/18 09:58 62 162/65 07/27/18 09:57 62 162/65 07/27/18 09:00 Nasal Cannula 3.0 Nasal Cannula 3.0 07/27/18 08:00 97.8 62 14 162/65 (97) 99 07/27/18 04:00 98.5 62 19 165/75 (105) 97 07/27/18 00:00 98.3 68 17 152/81 (104) 96 07/26/18 23:00 Nasal Cannula 3.0 07/26/18 21:00 Nasal Cannula 3.0 07/26/18 20:25 68 137/67 07/26/18 20:00 72 07/26/18 20:00 98.2 74 18 165/75 (105) 95 07/26/18 19:51 98 Nasal Cannula 3.0 32 07/26/18 19:51 68 18 Nasal Cannula 3.0 32 07/26/18 19:51 Nasal Cannula 3.0 32 07/26/18 16:00 67 07/26/18 16:00 97.9 65 20 137/67 (90) 95 Height (Feet): 5 Height (Inches): 2.00 Weight (Pounds): 158 Objective GENERAL: Calm in bed, oriented x3, slightly distress secondary to short of breath. CARDIOVASCULAR: No murmur. LUNGS: Poor exchange. ABDOMEN: Bowel sounds distant. EXTREMITIES: No cyanosis, clubbing, or edema. NEUROLOGIC: The patient moves all extremities, slightly weak Microbiology Date/Time Source Procedure Growth Status 07/25/18 11:50 Blood Blood Culture - Preliminary NO GROWTH AFTER 24 HOURS Resulted 07/25/18 11:40 Blood Blood Culture - Preliminary NO GROWTH AFTER 24 HOURS Resulted 07/25/18 02:25 Blood Blood Culture - Preliminary Staphylococcus Sp Coag Neg Resulted 07/25/18 02:15 Blood Blood Culture - Preliminary Staphylococcus Sp Coag Neg Resulted 07/26/18 13:10 Indwelling Cath Urine Culture - Preliminary NO GROWTH Resulted Laboratory Tests Test 07/26/18 16:20 07/27/18 08:00 Random Vancomycin Level 11.0 ug/mL 20.4 ug/mL White Blood Count 4.0 K/UL (4.8-10.8) L Red Blood Count 2.49 M/UL (4.20-5.40) L Hemoglobin 8.1 G/DL (12.0-16.0) L Hematocrit 25.1 % (37.0-47.0) L Mean Corpuscular Volume 101 FL (80-99) H Mean Corpuscular Hemoglobin 32.5 PG (27.0-31.0) H Mean Corpuscular Hemoglobin Concent 32.1 G/DL (32.0-36.0) Red Cell Distribution Width 12.2 % (11.6-14.8) Platelet Count 181 K/UL (150-450) Mean Platelet Volume 7.3 FL (6.5-10.1) Neutrophils (%) (Auto) 57.2 % (45.0-75.0) Lymphocytes (%) (Auto) 26.8 % (20.0-45.0) Monocytes (%) (Auto) 9.8 % (1.0-10.0) Eosinophils (%) (Auto) 5.3 % (0.0-3.0) H Basophils (%) (Auto) 0.9 % (0.0-2.0) Sodium Level 142 MMOL/L (136-145) Potassium Level 3.7 MMOL/L (3.5-5.1) Chloride Level 110 MMOL/L (98-107) H Carbon Dioxide Level 24 MMOL/L (21-32) Anion Gap 8 mmol/L (5-15) Blood Urea Nitrogen 51 mg/dL (7-18) H Creatinine 2.5 MG/DL (0.55-1.30) H Estimat Glomerular Filtration Rate 24.2 mL/min (>60) Glucose Level 155 MG/DL (74-106) H Calcium Level 8.1 MG/DL (8.5-10.1) L Lactate Dehydrogenase 215 U/L (81-234) Current Medications Medications (Trade) Dose Ordered Sig/Zara Route PRN Reason Start Time Stop Time Status Last Admin Dose Admin Acetaminophen (Tylenol) 650 mg Q4H PRN ORAL fever (temp>100.5F) 07/27/18 07:15 08/24/18 07:14 Acetaminophen/ Hydrocodone Bitart (Leroy 10/325) 1 tab Q4H PRN ORAL mild pain 07/27/18 12:15 08/03/18 12:14 Albuterol/ Ipratropium (Albuterol/ Ipratropium) 3 ml Q4H PRN HHN Shortness of Breath 07/27/18 07:15 08/01/18 07:14 Amlodipine Besylate (Norvasc) 10 mg DAILY ORAL 07/27/18 09:00 08/24/18 08:59 07/27/18 09:58 Atorvastatin Calcium (Lipitor) 80 mg BEDTIME ORAL 07/27/18 21:00 08/24/18 20:59 Calcium Acetate (Phoslo) 667 mg TID ORAL 07/27/18 09:00 08/24/18 08:59 07/27/18 13:05 Carvedilol (Coreg) 37.5 mg EVERY 12 HOURS ORAL 07/27/18 09:00 08/24/18 08:59 07/27/18 09:57 Cefepime HCl 1 gm/ Dextrose 55 ml @ 110 mls/hr Q24H IVPB 07/27/18 09:00 08/02/18 08:59 07/27/18 09:59 Clonidine HCl (Catapres Tab) 0.1 mg Q4H PRN ORAL SBP>160 07/27/18 12:15 08/26/18 12:14 Clopidogrel Bisulfate (Plavix) 75 mg DAILY ORAL 07/27/18 09:00 08/24/18 08:59 07/27/18 09:58 Gabapentin (Neurontin) 300 mg THREE TIMES A DAY ORAL 07/27/18 09:00 08/24/18 08:59 07/27/18 13:05 Heparin Sodium (Porcine) (Heparin 5000 units/ml) 5,000 units EVERY 12 HOURS SUBQ 07/27/18 09:00 08/24/18 08:59 Lorazepam (Ativan) 0.5 mg DAILYPRN PRN ORAL For Anxiety 07/27/18 09:00 08/03/18 08:59 Mirtazapine (Remeron) 7.5 mg BEDTIME ORAL 07/27/18 21:00 08/24/18 20:59 Morphine Sulfate (Morphine Sulfate) 4 mg Q4H PRN IVP Severe Pain (Pain Scale 7-10) 07/27/18 12:16 08/01/18 12:15 07/27/18 13:05 Ondansetron HCl (Zofran) 4 mg Q6H PRN IVP Nausea & Vomiting 07/27/18 07:15 08/24/18 07:14 Oxycodone/ Acetaminophen (Percocet 10/325) 1 tab Q6H PRN ORAL Moderate Pain (Pain Scale 4-6) 07/27/18 07:30 08/01/18 07:29 Polyethylene Glycol (Miralax) 17 gm DAILYPRN PRN ORAL Constipation 07/27/18 07:15 08/24/18 07:14 Temazepam (Restoril) 15 mg HSPRN PRN ORAL Insomnia 07/27/18 07:15 08/01/18 07:14 Trazodone HCl (Desyrel) 50 mg BEDTIME ORAL 07/27/18 21:00 08/24/18 20:59 Vancomycin HCl (Vanco rx to dose) 1 ea DAILY PRN MISC . 07/27/18 09:00 08/24/18 07:59 Juliane Mcdonald M.D. Jul 27, 2018 15:11
--- NOTE | 2018-07-27 17:43 | NUR ---
CASE MANAGEMENT: REVIEW SI: SOB . PLEURAL EFFUSION T 98.5 HR 69 RR 20 BP 173/75 SAT 98% NC/3L WBC 4.0 H/H 8.1/25.1 BUN 51 CR 2.5 IS: VANCO IV X1 CEFEPIME IV Q24HR COREG PO Q12HR PLAVIX PO QD MED/SURG STATUS DCP: PATIENT IS FROM HOME
--- NOTE | 2018-07-27 17:47 | NUR ---
INSURANCE UPDATED CLINICAL AND REVIEW FAXED TO JANETH ELDRIDGE T: [phone] OPT#2 F: [phone]
--- NOTE | 2018-07-27 19:27 | NUR ---
HAND-OFF: Report given to Danuta RODRIGUEZ.
[2018-07-27] MEDS: Atorvastatin 80mg tab ORAL SCH (20:16)
[2018-07-27] MEDS: TraZODone 50mg tab ORAL SCH (20:16)
[2018-07-27] MEDS ORDERED: Vancomycin 1gm in D5W 275ml IVPB SCH (21:00)
[2018-07-28] VITALS (8 sets, daily range): BP systolic 149–170; BP diastolic 61–87
--- NOTE | 2018-07-28 00:50 | NUR ---
NURSE NOTES: Alert and awake. PRN medication given for pain and HTN. voided on bedside commode with assist. No acute distress noted. Vanco given. Tolerated well. No IVF. IV patent. Call light within reach. Will continue to monitor.
[2018-07-28] MEDS: Morphine Sulfate 2mg/ml Inj IVP PRN ×4 (04:43→18:50)
--- NOTE | 2018-07-28 07:33 | NUR ---
HAND-OFF: Report given to Jay RODRIGUEZ.
--- NOTE | 2018-07-28 07:40 | NUR ---
NURSE NOTES: Received report from Ruben Gambino RN. Rounding done with outgoing nurse. A/O X4. Denies pain at this time. No SOB noted. Call light within reach. Will continue to monitor.
[2018-07-28 07:57] LABS: BASOPHILS % (AUTO) 0.7 % (0.0-2.0); EOSINOPHILS % (AUTO) 4.2 % (0.0-3.0); HEMATOCRIT 26.2 % (37.0-47.0); HEMOGLOBIN 8.4 G/DL (12.0-16.0); LYMPHOCYTES % (AUTO) 20.7 % (20.0-45.0); MEAN CORPUSCULAR VOLUME 100 FL (80-99); MONOCYTES % (AUTO) 8.7 % (1.0-10.0); NEUTROPHILS % (AUTO) 65.7 % (45.0-75.0); PLATELET COUNT 182 K/UL (150-450); RED BLOOD COUNT 2.62 M/UL (4.20-5.40); WHITE BLOOD COUNT 4.6 K/UL (4.8-10.8)
[2018-07-28 08:16] LABS: ANION GAP 9 mmol/L (5-15); BLOOD UREA NITROGEN 46 mg/dL (7-18); CALCIUM 8.3 MG/DL (8.5-10.1); CARBON DIOXIDE 22 MMOL/L (21-32); CHLORIDE 109 MMOL/L (98-107); CREATININE 2.4 MG/DL (0.55-1.30); POTASSIUM 3.9 MMOL/L (3.5-5.1); SODIUM 140 MMOL/L (136-145)
[2018-07-28] MEDS: Calcium Acetate 667mg Tab ORAL SCH ×3 (08:46→17:29)
[2018-07-28] MEDS: Carvedilol 12.5mg tab ORAL SCH ×2 (08:47→20:34)
[2018-07-28] MEDS: Heparin 5000 units/ml inj SUBQ SCH ×2 (08:49→20:42)
[2018-07-28] MEDS: Cefepime HCl 1 GM in D5W 55 ML IVPB SCH (08:50)
--- NOTE | 2018-07-28 09:50 | Consultation ---
History of Present Illness General Date patient seen: Jul 28, 2018 Reason for Consultation: ANEMIA Present Illness Allergies: Coded Allergies: LISINOPRIL (Verified Allergy, Unknown, 07/16/18) LOSARTAN (Verified Allergy, Unknown, 07/16/18) Medication History Scheduled Amlodipine Besylate* (Amlodipine Besylate*), 10 MG ORAL DAILY, (Reported) Aspirin* (Aspirin*), 81 MG ORAL DAILY, (Reported) Atorvastatin Calcium* (Lipitor*), 80 MG ORAL BEDTIME, (Reported) Calcium Acetate (Calcium Acetate), 667 MG PO TID, (Reported) Carvedilol (Coreg), 37.5 MG ORAL EVERY 12 HOURS, (Reported) Clopidogrel Bisulfate* (Plavix*), 75 MG ORAL DAILY, (Reported) Docusate Sodium* (Colace*), 100 MG ORAL TWICE A DAY, (Reported) Epoetin Yordan (Procrit), 4,000 UNIT SUBQ 3XW, (Reported) Ergocalciferol (Vitamin D2) (Vitamin D2), 50,000 UNIT PO WEEKLY, (Reported) Ferrous Sulfate* (Ferrous Sulfate*), 325 MG ORAL TWICE A DAY, (Reported) Furosemide* (Lasix*), 40 MG ORAL TWICE A DAY, (Reported) Gabapentin* (Gabapentin*), 300 MG ORAL THREE TIMES A DAY, (Reported) Heparin Sod (Porcine) (Heparin Sodium*), 5,000 UNITS SUBQ EVERY 12 HOURS, ( Reported) Hydralazine Hcl* (Hydralazine Hcl*), 100 MG ORAL EVERY 8 HOURS, (Reported) Insulin Glargine (Lantus), 15 UNITS SUBQ BID, (Reported) Insulin Lispro (Humalog), 0 SUBQ QID, (Reported) Insulin Lispro (Humalog), 6 UNITS SUBQ AC, (Reported) Iron Sucrose (Venofer), 100 MG IVP DAILY, (Reported) Isosorbide Dinitrate (Isordil), 40 MG PO TID, (Reported) Melatonin (Melatonin), 3 MG ORAL BEDTIME, (Reported) Mirtazapine* (Mirtazapine*), 7.5 MG ORAL BEDTIME, (Reported) Multivitamin with Minerals (Multivitamins with Minerals), 1 TAB ORAL DAILY, ( Reported) Polyethylene Glycol 3350* (Miralax*), 17 GM ORAL DAILY, (Reported) Trazodone Hcl* (Desyrel*), 50 MG ORAL BEDTIME, (Reported) Scheduled PRN Acetaminophen* (Acetaminophen 325MG Tablet*), 650 MG ORAL Q6H PRN for Mild Pain (Pain Scale 1-3), (Reported) Bisacodyl (Dulcolax), 10 MG RC DAILY PRN for IF MOM INEFFECTIVE, (Reported) Hydromorphone HCl/Pf (Dilaudid 0.5 mg/0.5 ml Syringe), 0.2 MG IVP Q4HR PRN for Breakthrough Pain, (Reported) Lorazepam* (Ativan*), 0.5 MG ORAL DAILY PRN for For Anxiety, (Reported) Nitroglycerin (Nitrostat), 0.4 MG SL Q5M X3 DOSES PRN for CHEST PAIN, (Reported) Ondansetron* (Zofran*), 4 MG IVP Q8H PRN for Nausea & Vomiting, (Reported) Oxycodone Hcl Ir* (Roxicodone Ir*), 5 MG ORAL Q4H PRN for Moderate Pain (Pain Scale 4-6), (Reported) Oxycodone Hcl/Acetaminophen 10-325* (Oxycodone-Acetaminophen 10-325*), 1 TAB ORAL Q4H PRN for Severe Pain (Pain Scale 7-10), (Reported) Miscellaneous Medications Unable to Obtain Medications (Unable To Obtain Meds), (Reported) Patient History Healthcare decision maker Resuscitation status Full Code Advanced Directive on File No Physical Exam Last 24 Hour Vital Signs Date Time Temp Pulse Resp B/P (MAP) Pulse Ox O2 Delivery O2 Flow Rate FiO2 07/28/18 08:47 69 149/87 07/28/18 08:47 69 149/87 07/28/18 08:00 97.7 69 20 149/87 (107) 97 07/28/18 04:49 167/68 07/28/18 04:00 98.0 65 18 167/68 (101) 95 07/28/18 00:00 98.6 64 17 151/79 (103) 94 07/27/18 23:43 171/70 07/27/18 21:00 Nasal Cannula 3.0 Nasal Cannula 3.0 07/27/18 20:49 Room Air 21 07/27/18 20:48 94 Room Air 21 07/27/18 20:22 70 18 Room Air 21 07/27/18 20:17 68 171/70 07/27/18 20:00 98.7 68 20 171/70 (103) 93 07/27/18 19:04 98.5 07/27/18 18:29 169/74 (105) 07/27/18 16:42 173/75 07/27/18 16:00 98.5 69 20 173/75 (107) 99 07/27/18 14:08 68 151/81 (104) 07/27/18 13:49 98 Nasal Cannula 3.0 32 07/27/18 13:49 Nasal Cannula 3.0 32 07/27/18 13:46 68 16 Nasal Cannula 2.0 28 07/27/18 12:50 69 24 170/72 (104) 07/27/18 12:00 97.3 69 18 172/79 (110) 98 07/27/18 11:34 97.8 07/27/18 09:58 62 162/65 07/27/18 09:57 62 162/65 Intake and Output 07/27/18 07/28/18 19:00 07:00 Intake Total 720 ml Balance 720 ml Intake Oral 720 ml # Voids 3 2 # Bowel Movements 1 Laboratory Tests Test 07/28/18 07:20 White Blood Count 4.6 K/UL (4.8-10.8) L Red Blood Count 2.62 M/UL (4.20-5.40) L Hemoglobin 8.4 G/DL (12.0-16.0) L Hematocrit 26.2 % (37.0-47.0) L Mean Corpuscular Volume 100 FL (80-99) H Mean Corpuscular Hemoglobin 32.1 PG (27.0-31.0) H Mean Corpuscular Hemoglobin Concent 32.1 G/DL (32.0-36.0) Red Cell Distribution Width 12.0 % (11.6-14.8) Platelet Count 182 K/UL (150-450) Mean Platelet Volume 7.2 FL (6.5-10.1) Neutrophils (%) (Auto) 65.7 % (45.0-75.0) Lymphocytes (%) (Auto) 20.7 % (20.0-45.0) Monocytes (%) (Auto) 8.7 % (1.0-10.0) Eosinophils (%) (Auto) 4.2 % (0.0-3.0) H Basophils (%) (Auto) 0.7 % (0.0-2.0) Sodium Level 140 MMOL/L (136-145) Potassium Level 3.9 MMOL/L (3.5-5.1) Chloride Level 109 MMOL/L (98-107) H Carbon Dioxide Level 22 MMOL/L (21-32) Anion Gap 9 mmol/L (5-15) Blood Urea Nitrogen 46 mg/dL (7-18) H Creatinine 2.4 MG/DL (0.55-1.30) H Estimat Glomerular Filtration Rate 25.3 mL/min (>60) Glucose Level 215 MG/DL (74-106) H Calcium Level 8.3 MG/DL (8.5-10.1) L Height (Feet): 5 Height (Inches): 2.00 Weight (Pounds): 158 Medications Current Medications Medications (Trade) Dose Ordered Sig/Zara Route PRN Reason Start Time Stop Time Status Last Admin Dose Admin Acetaminophen (Tylenol) 650 mg Q4H PRN ORAL fever (temp>100.5F) 07/27/18 07:15 08/24/18 07:14 Acetaminophen/ Hydrocodone Bitart (Froid 10/325) 1 tab Q4H PRN ORAL mild pain 07/27/18 12:15 08/03/18 12:14 Albuterol/ Ipratropium (Albuterol/ Ipratropium) 3 ml Q4H PRN HHN Shortness of Breath 07/27/18 07:15 08/01/18 07:14 Amlodipine Besylate (Norvasc) 10 mg DAILY ORAL 07/27/18 09:00 08/24/18 08:59 07/28/18 08:47 Atorvastatin Calcium (Lipitor) 80 mg BEDTIME ORAL 07/27/18 21:00 08/24/18 20:59 07/27/18 20:16 Calcium Acetate (Phoslo) 667 mg TID ORAL 07/27/18 09:00 08/24/18 08:59 07/28/18 08:46 Carvedilol (Coreg) 37.5 mg EVERY 12 HOURS ORAL 07/27/18 09:00 08/24/18 08:59 07/28/18 08:47 Cefepime HCl 1 gm/ Dextrose 55 ml @ 110 mls/hr Q24H IVPB 07/27/18 09:00 08/02/18 08:59 07/28/18 08:50 Clonidine HCl (Catapres Tab) 0.1 mg Q4H PRN ORAL SBP>160 07/27/18 12:15 08/26/18 12:14 07/28/18 04:49 Clopidogrel Bisulfate (Plavix) 75 mg DAILY ORAL 07/27/18 09:00 08/24/18 08:59 07/28/18 08:46 Gabapentin (Neurontin) 300 mg THREE TIMES A DAY ORAL 07/27/18 09:00 08/24/18 08:59 07/28/18 08:46 Heparin Sodium (Porcine) (Heparin 5000 units/ml) 5,000 units EVERY 12 HOURS SUBQ 07/27/18 09:00 08/24/18 08:59 07/28/18 08:49 Lorazepam (Ativan) 0.5 mg DAILYPRN PRN ORAL For Anxiety 07/27/18 09:00 08/03/18 08:59 Mirtazapine (Remeron) 7.5 mg BEDTIME ORAL 07/27/18 21:00 08/24/18 20:59 07/27/18 20:17 Morphine Sulfate (Morphine Sulfate) 4 mg Q4H PRN IVP Severe Pain (Pain Scale 7-10) 07/27/18 12:16 08/01/18 12:15 07/28/18 08:48 Ondansetron HCl (Zofran) 4 mg Q6H PRN IVP Nausea & Vomiting 07/27/18 07:15 08/24/18 07:14 Oxycodone/ Acetaminophen (Percocet 10/325) 1 tab Q6H PRN ORAL Moderate Pain (Pain Scale 4-6) 07/27/18 07:30 08/01/18 07:29 Polyethylene Glycol (Miralax) 17 gm DAILYPRN PRN ORAL Constipation 07/27/18 07:15 08/24/18 07:14 Temazepam (Restoril) 15 mg HSPRN PRN ORAL Insomnia 07/27/18 07:15 08/01/18 07:14 Trazodone HCl (Desyrel) 50 mg BEDTIME ORAL 07/27/18 21:00 08/24/18 20:59 07/27/18 20:16 Vancomycin HCl (Vanco rx to dose) 1 ea DAILY PRN MISC . 07/27/18 09:00 08/24/18 07:59 Assessment/Plan Assessment/Plan (1) H/O CVA left sided weakness (2) Thalamic pain syndrome (3) Peripheral Neuropathy seen dictated Kwabena Verduzco Jul 28, 2018 09:50
--- NOTE | 2018-07-28 13:30 | NUR ---
REHAB MED PT NOTE PATIENT REFUSING PT AT THIS TIME, AWAITING PROCEDURE, NURSING AWARE, WILL REATTEMPT ABLE.
--- NOTE | 2018-07-28 13:59 | General Progress Note ---
Assessment/Plan Problem List: (1) Acute respiratory failure ICD Codes: J96.00 - Acute respiratory failure, unspecified whether with hypoxia or hypercapnia SNOMED: 95844704 (2) Pleural effusion ICD Codes: J90 - Pleural effusion, not elsewhere classified SNOMED: 14608800 (3) Hypertension ICD Codes: I10 - Essential (primary) hypertension SNOMED: 01603849 (4) Diabetes mellitus ICD Codes: E11.9 - Type 2 diabetes mellitus without complications SNOMED: 50451071 (5) ATN (acute tubular necrosis) ICD Codes: N17.0 - Acute kidney failure with tubular necrosis SNOMED: 16867948 (6) Abdominal pain ICD Codes: R10.9 - Unspecified abdominal pain SNOMED: 90919809 Status: stable, progressing Assessment/Plan o2 pulm tx pt diet eval bp bs control cbc bmp am dc plan w hh Subjective Constitutional: Reports: weakness Allergies: Coded Allergies: LISINOPRIL (Verified Allergy, Unknown, 07/16/18) LOSARTAN (Verified Allergy, Unknown, 07/16/18) All Systems: reviewed and negative except above Subjective o2nc tired in bed Objective Last 24 Hour Vital Signs Date Time Temp Pulse Resp B/P (MAP) Pulse Ox O2 Delivery O2 Flow Rate FiO2 07/28/18 12:00 98.6 66 20 170/70 (103) 99 07/28/18 11:33 170/70 07/28/18 09:51 96 Room Air 21 07/28/18 09:51 67 18 Room Air 21 07/28/18 09:51 Room Air 21 07/28/18 09:00 Nasal Cannula 3.0 Nasal Cannula 3.0 07/28/18 08:47 69 149/87 07/28/18 08:47 69 149/87 07/28/18 08:00 97.7 69 20 149/87 (107) 97 07/28/18 04:49 167/68 07/28/18 04:00 98.0 65 18 167/68 (101) 95 07/28/18 00:00 98.6 64 17 151/79 (103) 94 07/27/18 23:43 171/70 07/27/18 21:00 Nasal Cannula 3.0 Nasal Cannula 3.0 07/27/18 20:49 Room Air 21 07/27/18 20:48 94 Room Air 21 07/27/18 20:22 70 18 Room Air 21 07/27/18 20:17 68 171/70 07/27/18 20:00 98.7 68 20 171/70 (103) 93 07/27/18 19:04 98.5 07/27/18 18:29 169/74 (105) 07/27/18 16:42 173/75 07/27/18 16:00 98.5 69 20 173/75 (107) 99 07/27/18 14:08 68 151/81 (104) Intake and Output 07/27/18 07/28/18 19:00 07:00 Intake Total 720 ml Balance 720 ml Intake Oral 720 ml # Voids 3 2 # Bowel Movements 1 Laboratory Tests 07/28/18 07:20: White Blood Count 4.6L, Red Blood Count 2.62L, Hemoglobin 8.4L, Hematocrit 26.2L , Mean Corpuscular Volume 100H, Mean Corpuscular Hemoglobin 32.1H, Mean Corpuscular Hemoglobin Concent 32.1, Red Cell Distribution Width 12.0, Platelet Count 182, Mean Platelet Volume 7.2, Neutrophils (%) (Auto) 65.7, Lymphocytes (% ) (Auto) 20.7, Monocytes (%) (Auto) 8.7, Eosinophils (%) (Auto) 4.2H, Basophils (%) (Auto) 0.7, Sodium Level 140, Potassium Level 3.9, Chloride Level 109H, Carbon Dioxide Level 22, Anion Gap 9, Blood Urea Nitrogen 46H, Creatinine 2.4H, Estimat Glomerular Filtration Rate 25.3, Glucose Level 215H, Calcium Level 8.3L Height (Feet): 5 Height (Inches): 2.00 Weight (Pounds): 158 General Appearance: lethargic EENT: normal ENT inspection Neck: normal alignment Cardiovascular: normal peripheral pulses, normal rate, regular rhythm Respiratory/Chest: chest wall non-tender, lungs clear, normal breath sounds Abdomen: normal bowel sounds, non tender, soft Extremities: normal inspection Edema: 1+ Arm (L), 1+ Arm (R), 1+ Leg (L), 1+ Leg (R), 1+ Pedal (L), 1+ Pedal ( R), 1+ Generalized Edema: trace edema Neurologic: responsive, motor weakness Skin: normal pigmentation, warm/dry Naun Geiger DO Jul 28, 2018 13:59
--- NOTE | 2018-07-28 14:55 | GI Progress Note ---
Assessment/Plan Problems: (1) Abdominal pain ICD Codes: R10.9 - Unspecified abdominal pain SNOMED: 73194698 (2) Anemia ICD Codes: D64.9 - Anemia, unspecified SNOMED: 423560254 (3) Acute respiratory failure ICD Codes: J96.00 - Acute respiratory failure, unspecified whether with hypoxia or hypercapnia SNOMED: 77984703 Status: unchanged Status Narrative Discussed with Dr. Yarbrough Assessment/Plan s/p thoracentesis Anemia workup reviewed from prior admission send for OB stool r/o GI bleed monitor H&H, prn transfusions bowel regime ppi adv diet as tolerated fu cardio/pulmonary recs fu labs The patient was seen and examined at bedside and all new and available data was reviewed in the patients chart. I agree with the above findings, impression and plan. (Patient seen earlier today. Signature stamp does not reflect patient encounter time.). - Marco Antonio Yarbrough MD Subjective Subjective Complaints of shortness of breath and generalized pain Objective Last 24 Hour Vital Signs Date Time Temp Pulse Resp B/P (MAP) Pulse Ox O2 Delivery O2 Flow Rate FiO2 07/28/18 13:00 159/61 (93) 07/28/18 12:00 98.6 66 20 170/70 (103) 99 07/28/18 11:33 170/70 07/28/18 09:51 96 Room Air 21 07/28/18 09:51 67 18 Room Air 21 07/28/18 09:51 Room Air 21 07/28/18 09:00 Nasal Cannula 3.0 Nasal Cannula 3.0 07/28/18 08:47 69 149/87 07/28/18 08:47 69 149/87 07/28/18 08:00 97.7 69 20 149/87 (107) 97 07/28/18 04:49 167/68 07/28/18 04:00 98.0 65 18 167/68 (101) 95 07/28/18 00:00 98.6 64 17 151/79 (103) 94 07/27/18 23:43 171/70 07/27/18 21:00 Nasal Cannula 3.0 Nasal Cannula 3.0 07/27/18 20:49 Room Air 21 07/27/18 20:48 94 Room Air 21 07/27/18 20:22 70 18 Room Air 21 07/27/18 20:17 68 171/70 07/27/18 20:00 98.7 68 20 171/70 (103) 93 07/27/18 19:04 98.5 07/27/18 18:29 169/74 (105) 18 16:42 173/75 07/27/18 16:00 98.5 69 20 173/75 (107) 99 Intake and Output 07/27/18 07/28/18 19:00 07:00 Intake Total 720 ml Balance 720 ml Intake Oral 720 ml # Voids 3 2 # Bowel Movements 1 Laboratory Tests Test 07/28/18 07:20 White Blood Count 4.6 K/UL (4.8-10.8) L Red Blood Count 2.62 M/UL (4.20-5.40) L Hemoglobin 8.4 G/DL (12.0-16.0) L Hematocrit 26.2 % (37.0-47.0) L Mean Corpuscular Volume 100 FL (80-99) H Mean Corpuscular Hemoglobin 32.1 PG (27.0-31.0) H Mean Corpuscular Hemoglobin Concent 32.1 G/DL (32.0-36.0) Red Cell Distribution Width 12.0 % (11.6-14.8) Platelet Count 182 K/UL (150-450) Mean Platelet Volume 7.2 FL (6.5-10.1) Neutrophils (%) (Auto) 65.7 % (45.0-75.0) Lymphocytes (%) (Auto) 20.7 % (20.0-45.0) Monocytes (%) (Auto) 8.7 % (1.0-10.0) Eosinophils (%) (Auto) 4.2 % (0.0-3.0) H Basophils (%) (Auto) 0.7 % (0.0-2.0) Sodium Level 140 MMOL/L (136-145) Potassium Level 3.9 MMOL/L (3.5-5.1) Chloride Level 109 MMOL/L (98-107) H Carbon Dioxide Level 22 MMOL/L (21-32) Anion Gap 9 mmol/L (5-15) Blood Urea Nitrogen 46 mg/dL (7-18) H Creatinine 2.4 MG/DL (0.55-1.30) H Estimat Glomerular Filtration Rate 25.3 mL/min (>60) Glucose Level 215 MG/DL (74-106) H Calcium Level 8.3 MG/DL (8.5-10.1) L Height (Feet): 5 Height (Inches): 2.00 Weight (Pounds): 158 General Appearance: WD/WN, no apparent distress, alert Cardiovascular: normal rate Abdominal Exam: normal bowel sounds, non tender, soft Extremities: non-tender Objective Patient has left-sided edema Lance Sosa NP Jul 28, 2018 14:55
--- NOTE | 2018-07-28 16:12 | Infectious Diseases Prog Note ---
Assessment/Plan Assessment/Plan Abx: IV Vancomycin 07/25- Cefepime 07/25- Assessment SOB, worsening- ?worsening edema vs infection -07/26 CXR: Improved but still extensive bilateral interstitial and airspace edema versus infiltrates Suspect increasing left pleural effusion -07/25 CXR: Cardiomegaly. Bilateral extensive infiltrates versus edema and bilateral pleural effusions Gram positive bacteremic, -likely contamiannant -07/25 Bcx 3/4 CONS; 07/25 NTD, NTD -2d echo: no vegetatioms Moderate b/l pleural effusions -07/26 SP R thoracentesis: wbc 240, LDH 61, pH 8- transudate; cx p Afebrile No leukocytosis Recent Probable PNA, s/p Rx -07/19 CT chest: : Marked cardiomegaly. Bilateral pleural effusions. Pulmonary interstitial septal thickening, diffuse faint groundglass opacity, scattered slightly denser parenchymal opacities bilaterally. Findings most likely represent pulmonary edema. However, inflammatory etiologies are also possible. Mediastinal, possible bilateral hilar, possible left axillary lymphadenopathy. This is nonspecific, could indicate inflammatory process, lymphoproliferative disorder, metastatic lymphadenopathy among other possibilities. Splenomegaly. Suspect related to the above. Hepatomegaly -CXR: Reduced lung volumes with bibasilar infiltrates. -influenza sc neg -Bcx neg Recent Acute CHF exacerbation MICHELLE, imporved asthma HTN DM CVA w/ L side weakness [place] resident Plan: -Continue empiric IV Vancomycin and Cefepime #4/5-7 pending sputum culture and pleural fluid culture -low threshold to add PO Fluconazole if no improvement. -07/20 SP Levaquin #5 -07/15 SP Unasyn x1 -f/u repaet Bcx x2 -f/u pleural fluid cx -f/u sp cx (fungal, bacterial), Cocci, CrAg, fungitell, legionella ag urine -Monitor CBC/C MP, temperatures -Aspiration precautions -Cards, Renal f/u Thank you for this consultation. Will continue to follow along with you. Subjective Allergies: Coded Allergies: LISINOPRIL (Verified Allergy, Unknown, 07/16/18) LOSARTAN (Verified Allergy, Unknown, 07/16/18) Subjective afebrile repaet Bcx NTD Objective Vital Signs Last 24 Hour Vital Signs Date Time Temp Pulse Resp B/P (MAP) Pulse Ox O2 Delivery O2 Flow Rate FiO2 07/28/18 13:00 159/61 (93) 07/28/18 12:00 98.6 66 20 170/70 (103) 99 07/28/18 11:33 170/70 07/28/18 09:51 96 Room Air 21 07/28/18 09:51 67 18 Room Air 21 07/28/18 09:51 Room Air 21 07/28/18 09:00 Nasal Cannula 3.0 Nasal Cannula 3.0 07/28/18 08:47 69 149/87 07/28/18 08:47 69 149/87 07/28/18 08:00 97.7 69 20 149/87 (107) 97 07/28/18 04:49 167/68 07/28/18 04:00 98.0 65 18 167/68 (101) 95 07/28/18 00:00 98.6 64 17 151/79 (103) 94 07/27/18 23:43 171/70 07/27/18 21:00 Nasal Cannula 3.0 Nasal Cannula 3.0 07/27/18 20:49 Room Air 21 07/27/18 20:48 94 Room Air 21 07/27/18 20:22 70 18 Room Air 21 07/27/18 20:17 68 171/70 07/27/18 20:00 98.7 68 20 171/70 (103) 93 07/27/18 19:04 98.5 07/27/18 18:29 169/74 (105) 07/27/18 16:42 173/75 Height (Feet): 5 Height (Inches): 2.00 Weight (Pounds): 158 Objective GENERAL: Calm in bed, oriented x3, slightly distress secondary to short of breath. CARDIOVASCULAR: No murmur. LUNGS: Poor exchange. ABDOMEN: Bowel sounds distant. EXTREMITIES: No cyanosis, clubbing, or edema. NEUROLOGIC: The patient moves all extremities, slightly weak Microbiology Date/Time Source Procedure Growth Status 07/26/18 12:15 Blood Blood Culture - Preliminary NO GROWTH AFTER 24 HOURS Resulted 07/26/18 12:00 Blood Blood Culture - Preliminary NO GROWTH AFTER 24 HOURS Resulted 07/26/18 13:10 Indwelling Cath Urine Culture - Preliminary NO GROWTH AFTER 24 HOURS Resulted Laboratory Tests Test 07/28/18 07:20 White Blood Count 4.6 K/UL (4.8-10.8) L Red Blood Count 2.62 M/UL (4.20-5.40) L Hemoglobin 8.4 G/DL (12.0-16.0) L Hematocrit 26.2 % (37.0-47.0) L Mean Corpuscular Volume 100 FL (80-99) H Mean Corpuscular Hemoglobin 32.1 PG (27.0-31.0) H Mean Corpuscular Hemoglobin Concent 32.1 G/DL (32.0-36.0) Red Cell Distribution Width 12.0 % (11.6-14.8) Platelet Count 182 K/UL (150-450) Mean Platelet Volume 7.2 FL (6.5-10.1) Neutrophils (%) (Auto) 65.7 % (45.0-75.0) Lymphocytes (%) (Auto) 20.7 % (20.0-45.0) Monocytes (%) (Auto) 8.7 % (1.0-10.0) Eosinophils (%) (Auto) 4.2 % (0.0-3.0) H Basophils (%) (Auto) 0.7 % (0.0-2.0) Sodium Level 140 MMOL/L (136-145) Potassium Level 3.9 MMOL/L (3.5-5.1) Chloride Level 109 MMOL/L (98-107) H Carbon Dioxide Level 22 MMOL/L (21-32) Anion Gap 9 mmol/L (5-15) Blood Urea Nitrogen 46 mg/dL (7-18) H Creatinine 2.4 MG/DL (0.55-1.30) H Estimat Glomerular Filtration Rate 25.3 mL/min (>60) Glucose Level 215 MG/DL (74-106) H Calcium Level 8.3 MG/DL (8.5-10.1) L Current Medications Medications (Trade) Dose Ordered Sig/Zara Route PRN Reason Start Time Stop Time Status Last Admin Dose Admin Acetaminophen (Tylenol) 650 mg Q4H PRN ORAL fever (temp>100.5F) 07/27/18 07:15 08/24/18 07:14 Albuterol/ Ipratropium (Albuterol/ Ipratropium) 3 ml Q4H PRN HHN Shortness of Breath 07/27/18 07:15 08/01/18 07:14 Amlodipine Besylate (Norvasc) 10 mg DAILY ORAL 07/27/18 09:00 08/24/18 08:59 07/28/18 08:47 Atorvastatin Calcium (Lipitor) 80 mg BEDTIME ORAL 07/27/18 21:00 08/24/18 20:59 07/27/18 20:16 Calcium Acetate (Phoslo) 667 mg TID ORAL 07/27/18 09:00 08/24/18 08:59 07/28/18 12:38 Carvedilol (Coreg) 37.5 mg EVERY 12 HOURS ORAL 07/27/18 09:00 08/24/18 08:59 07/28/18 08:47 Cefepime HCl 1 gm/ Dextrose 55 ml @ 110 mls/hr Q24H IVPB 07/27/18 09:00 08/02/18 08:59 07/28/18 08:50 Clonidine HCl (Catapres Tab) 0.1 mg Q4H PRN ORAL SBP>160 07/27/18 12:15 08/26/18 12:14 07/28/18 11:33 Clopidogrel Bisulfate (Plavix) 75 mg DAILY ORAL 07/27/18 09:00 08/24/18 08:59 07/28/18 08:46 Gabapentin (Neurontin) 300 mg THREE TIMES A DAY ORAL 07/27/18 09:00 08/24/18 08:59 07/28/18 12:38 Heparin Sodium (Porcine) (Heparin 5000 units/ml) 5,000 units EVERY 12 HOURS SUBQ 07/27/18 09:00 08/24/18 08:59 07/28/18 08:49 Lorazepam (Ativan) 0.5 mg DAILYPRN PRN ORAL For Anxiety 07/27/18 09:00 08/03/18 08:59 Mirtazapine (Remeron) 7.5 mg BEDTIME ORAL 07/27/18 21:00 08/24/18 20:59 07/27/18 20:17 Morphine Sulfate (Morphine Sulfate) 4 mg Q4H PRN IVP Severe Pain (Pain Scale 7-10) 07/27/18 12:16 08/01/18 12:15 07/28/18 13:38 Ondansetron HCl (Zofran) 4 mg Q6H PRN IVP Nausea & Vomiting 07/27/18 07:15 08/24/18 07:14 Oxycodone/ Acetaminophen (Percocet 10/325) 1 tab Q6H PRN ORAL Moderate Pain (Pain Scale 4-6) 07/27/18 07:30 08/01/18 07:29 07/28/18 11:40 Polyethylene Glycol (Miralax) 17 gm DAILYPRN PRN ORAL Constipation 07/27/18 07:15 08/24/18 07:14 Temazepam (Restoril) 15 mg HSPRN PRN ORAL Insomnia 07/27/18 07:15 08/01/18 07:14 Trazodone HCl (Desyrel) 50 mg BEDTIME ORAL 07/27/18 21:00 08/24/18 20:59 07/27/18 20:16 Vancomycin HCl (Vanco rx to dose) 1 ea DAILY PRN MISC . 07/27/18 09:00 08/24/18 07:59 Juliane Mcdonald M.D. Jul 28, 2018 16:12
--- NOTE | 2018-07-28 17:15 | Consultation ---
DATE OF CONSULTATION: 07/28/2018 PAIN MANAGEMENT CONSULTATION: CONSULTING PHYSICIAN: Waylon Hagen M.D. REFERRING PHYSICIAN: Naun Geiger D.O. PHYSICIAN GOVERNMENT PROPERTY INSPECTOR: GEOVANNA Rocha. CHIEF COMPLAINT: Generalized body pain. HISTORY OF PRESENT ILLNESS: This is a 53-year-old female, who is being seen on the Med/Surg floor of [facility] for comprehensive pain management consultation. The patient was admitted under the care of Dr. Geiger complaining of shortness of breath, found to have pleural effusion, status post thoracentesis, complaining of pain throughout her body for many years and it is constant, chronic, rating at 10/10, describing the pain as aching, sharp, numbness, increasing with movement, and nothing has been helping to relieve the pain. She reports she had a CVA in January of this year causing left-sided weakness complaining of pain on the left side of her body. She has been seeing Dr. Crum, receiving Percocet 10 mg tablets as needed as an outpatient. At this time, the patient was started on morphine 10 mg IV every 4 hours as needed for severe pain with minimal pain relief and was increased to morphine 4 mg IV every 4 hours, which the patient reports has been helping her relieve the pain. She also has Percocet 10/325 one tablet every 6 hours as needed for moderate pain and [place] 10/325 mg one tablet every 4 hours as needed for mild pain. I discussed with the patient about her condition and she seems to understand. We were consulted so the patient will have adequate pain control while here in the hospital. PAST MEDICAL HISTORY: CVA, left-sided hemiparesis, peripheral neuropathy, history of [place], congestive heart failure, coronary artery disease, hypertension, chronic kidney disease, depression, anxiety, and diabetes. SOCIAL HISTORY: Denies smoking tobacco, drinking alcohol, or IV drug abuse. ALLERGIES: Lisinopril and losartan. REVIEW OF SYSTEMS: Denies rash, fever, chills, sweating, dizziness, drowsiness, blurred vision, sore throat, change in her weight. No shortness of breath at this time. No chest pain, palpitations, or cough. No nausea, vomiting, diarrhea, or blood in the stool or urine. No bowel or bladder incontinence. She is complaining of generalized body pain. PHYSICAL EXAMINATION: GENERAL: Alert, awake, and oriented. VITAL SIGNS: Blood pressure 149/87, heart rate 69, oxygen saturation is 97%, respiratory rate 20, and temperature is 97.6 degrees Fahrenheit. HEENT: PERRLA. NECK: Range of motion is decreased due to the patient's condition. No tenderness to paracervical muscles. No adenopathy. LUNGS: Decreased breath sounds bilaterally. HEART: S1 and S2 regular. ABDOMEN: Benign. BACK: Range of motion is decreased in flexion and extension. EXTREMITIES: Upper extremity range of motion is decreased due to the patient's condition. No cyanosis. No clubbing. No edema noted. Sensory is reduced. Reflexes are not obtainable. No adenopathy. ASSESSMENT AND PLAN: This is a 53-year-old female with a history of CVA with left-sided weakness, thalamic pain syndrome, and peripheral neuropathy. The patient will be continued on morphine 4 mg IV every 4 hours as needed for severe pain, Percocet 10/325 one tablet every 6 hours as needed for moderate pain. We will discontinue the [place]. The patient was discussed with Dr. Hagen and he concurred. We will follow the patient. Thank you very much for the courtesy of this consultation. Waylon Hagen M.D. GEOVANNA Rocha DR: ANNE MARIE JOB#: [id number] CC:
--- NOTE | 2018-07-28 19:22 | NUR ---
HAND-OFF: Report given to Meli Villafuerte.
--- NOTE | 2018-07-28 19:50 | NUR ---
NURSE NOTES: Patient in bed awake and alert, no s/s distress noted. Bedside commode next to bedside. Bed in lowest position for safety. Call light within reach.
[2018-07-28] MEDS: TraZODone 50mg tab ORAL SCH (20:34)
[2018-07-28] MEDS: Atorvastatin 80mg tab ORAL SCH (20:34)
--- NOTE | 2018-07-28 21:23 | Nephrology Progress Note ---
Assessment/Plan Assessment 1. MICHELLE 2.CKD 3.HTN 4.CHF 5.hypocalcemia Plan Plan start lasix 40 and titrate based on fluid status continue current monitoring renal function avoid NSAID Replace electrolyte as need it Subjective Subjective alert and awake c/o mild SOB Objective Objective Last 24 Hour Vital Signs Date Time Temp Pulse Resp B/P (MAP) Pulse Ox O2 Delivery O2 Flow Rate FiO2 07/28/18 20:34 61 161/77 07/28/18 20:00 98.3 61 19 161/77 (105) 96 07/28/18 19:36 62 18 Room Air 21 07/28/18 19:36 Room Air 21 07/28/18 19:36 97 Room Air 21 07/28/18 17:09 163/73 07/28/18 17:00 153/70 (97) 07/28/18 16:00 97.7 61 20 163/73 (103) 97 07/28/18 13:00 159/61 (93) 07/28/18 12:00 98.6 66 20 170/70 (103) 99 07/28/18 11:33 170/70 07/28/18 09:51 96 Room Air 21 07/28/18 09:51 67 18 Room Air 21 07/28/18 09:51 Room Air 21 07/28/18 09:00 Nasal Cannula 3.0 Nasal Cannula 3.0 07/28/18 08:47 69 149/87 07/28/18 08:47 69 149/87 07/28/18 08:00 97.7 69 20 149/87 (107) 97 07/28/18 04:49 167/68 07/28/18 04:00 98.0 65 18 167/68 (101) 95 07/28/18 00:00 98.6 64 17 151/79 (103) 94 07/27/18 23:43 171/70 Intake and Output 07/27/18 07/28/18 19:00 07:00 Intake Total 720 ml Balance 720 ml Intake Oral 720 ml # Voids 3 2 # Bowel Movements 1 Laboratory Tests 07/28/18 07:20: White Blood Count 4.6L, Red Blood Count 2.62L, Hemoglobin 8.4L, Hematocrit 26.2L , Mean Corpuscular Volume 100H, Mean Corpuscular Hemoglobin 32.1H, Mean Corpuscular Hemoglobin Concent 32.1, Red Cell Distribution Width 12.0, Platelet Count 182, Mean Platelet Volume 7.2, Neutrophils (%) (Auto) 65.7, Lymphocytes (% ) (Auto) 20.7, Monocytes (%) (Auto) 8.7, Eosinophils (%) (Auto) 4.2H, Basophils (%) (Auto) 0.7, Sodium Level 140, Potassium Level 3.9, Chloride Level 109H, Carbon Dioxide Level 22, Anion Gap 9, Blood Urea Nitrogen 46H, Creatinine 2.4H, Estimat Glomerular Filtration Rate 25.3, Glucose Level 215H, Calcium Level 8.3L Height (Feet): 5 Height (Inches): 2.00 Weight (Pounds): 158 Objective HEAD AND NECK: No JVD. No LAD. No thyromegaly. Extraocular movement intact. Pupils are reactive to light and accommodation. LUNGS: Clear to auscultation. CARDIAC: Regular rate and rhythm. S1 and S2. No murmur. No rub. ABDOMEN: Soft, nontender, and nondistended. No organomegaly. EXTREMITIES: Trace edema. No clubbing. No cyanosis. Cranial nerves II through XII within normal limit. Upper and lower extremities are grossly intact. Nabila Park MD Jul 28, 2018 21:23
[2018-07-29] VITALS (10 sets, daily range): BP systolic 116–179; BP diastolic 67–81
[2018-07-29] MEDS: Morphine Sulfate 2mg/ml Inj IVP PRN ×5 (00:20→20:54)
--- NOTE | 2018-07-29 07:15 | NUR ---
HAND-OFF: Report given to Elina RODRIGUEZ.
--- NOTE | 2018-07-29 07:18 | NUR ---
NURSE NOTES: Received report from Meli RODRIGUEZ. On rounds patient is asleep in bed. No s/s acute distress noted, breathing even and unlabored. Fall precautions maintained. Side rails upx3, bed low and locked, call light in reach, bed alarm armed. Will continue to monitor. .
[2018-07-29 07:25] LABS: BASOPHILS % (AUTO) 0.8 % (0.0-2.0); EOSINOPHILS % (AUTO) 5.3 % (0.0-3.0); HEMATOCRIT 27.2 % (37.0-47.0); HEMOGLOBIN 8.7 G/DL (12.0-16.0); LYMPHOCYTES % (AUTO) 25.2 % (20.0-45.0); MEAN CORPUSCULAR VOLUME 101 FL (80-99); MONOCYTES % (AUTO) 7.4 % (1.0-10.0); NEUTROPHILS % (AUTO) 61.2 % (45.0-75.0); PLATELET COUNT 179 K/UL (150-450); RED CELL DISTRIBUTION WIDTH 12.3 % (11.6-14.8); WHITE BLOOD COUNT 4.1 K/UL (4.8-10.8)
[2018-07-29 07:43] LABS: ANION GAP 10 mmol/L (5-15); BLOOD UREA NITROGEN 45 mg/dL (7-18); CALCIUM 8.3 MG/DL (8.5-10.1); CARBON DIOXIDE 21 MMOL/L (21-32); CHLORIDE 109 MMOL/L (98-107); CREATININE 2.1 MG/DL (0.55-1.30); POTASSIUM 4.7 MMOL/L (3.5-5.1); SODIUM 140 MMOL/L (136-145)
--- NOTE | 2018-07-29 08:31 | General Progress Note ---
Assessment/Plan Problem List: (1) Acute respiratory failure ICD Codes: J96.00 - Acute respiratory failure, unspecified whether with hypoxia or hypercapnia SNOMED: 59040559 (2) Pleural effusion ICD Codes: J90 - Pleural effusion, not elsewhere classified SNOMED: 17756215 (3) Hypertension ICD Codes: I10 - Essential (primary) hypertension SNOMED: 28328945 (4) Diabetes mellitus ICD Codes: E11.9 - Type 2 diabetes mellitus without complications SNOMED: 01748696 (5) ATN (acute tubular necrosis) ICD Codes: N17.0 - Acute kidney failure with tubular necrosis SNOMED: 25578711 (6) Abdominal pain ICD Codes: R10.9 - Unspecified abdominal pain SNOMED: 34149367 Status: stable, progressing Assessment/Plan o2 pulm tx pt diet eval bp bs control cbc bmp am dc plan w hh Subjective Constitutional: Reports: weakness Allergies: Coded Allergies: LISINOPRIL (Verified Allergy, Unknown, 07/16/18) LOSARTAN (Verified Allergy, Unknown, 07/16/18) All Systems: reviewed and negative except above Subjective o2nc tired in bed Objective Last 24 Hour Vital Signs Date Time Temp Pulse Resp B/P (MAP) Pulse Ox O2 Delivery O2 Flow Rate FiO2 07/29/18 05:22 151/68 (95) 07/29/18 04:53 169/67 07/29/18 04:00 98.4 66 18 169/67 (101) 96 07/29/18 01:10 158/70 (99) 07/29/18 00:00 98.0 63 20 177/79 (111) 96 07/28/18 23:52 177/79 07/28/18 21:00 Nasal Cannula 3.0 Nasal Cannula 3.0 07/28/18 20:34 61 161/77 07/28/18 20:00 98.3 61 19 161/77 (105) 96 07/28/18 19:36 62 18 Room Air 21 07/28/18 19:36 Room Air 21 07/28/18 19:36 97 Room Air 21 07/28/18 17:09 163/73 07/28/18 17:00 153/70 (97) 07/28/18 16:00 97.7 61 20 163/73 (103) 97 07/28/18 13:00 159/61 (93) 07/28/18 12:00 98.6 66 20 170/70 (103) 99 07/28/18 11:33 170/70 07/28/18 09:51 96 Room Air 21 07/28/18 09:51 67 18 Room Air 21 07/28/18 09:51 Room Air 21 07/28/18 09:00 Nasal Cannula 3.0 Nasal Cannula 3.0 07/28/18 08:47 69 149/87 07/28/18 08:47 69 149/87 Intake and Output 07/28/18 07/29/18 18:59 06:59 Intake Total 295 ml Balance 295 ml Intake Oral 240 ml IV Total 55 ml # Voids 3 2 Laboratory Tests 07/29/18 06:01: White Blood Count 4.1L, Red Blood Count 2.70L, Hemoglobin 8.7L, Hematocrit 27.2L , Mean Corpuscular Volume 101H, Mean Corpuscular Hemoglobin 32.3H, Mean Corpuscular Hemoglobin Concent 32.1, Red Cell Distribution Width 12.3, Platelet Count 179, Mean Platelet Volume 7.4, Neutrophils (%) (Auto) 61.2, Lymphocytes (% ) (Auto) 25.2, Monocytes (%) (Auto) 7.4, Eosinophils (%) (Auto) 5.3H, Basophils (%) (Auto) 0.8, Sodium Level 140, Potassium Level 4.7, Chloride Level 109H, Carbon Dioxide Level 21, Anion Gap 10, Blood Urea Nitrogen 45H, Creatinine 2.1H , Estimat Glomerular Filtration Rate 29.7, Glucose Level 214H, Calcium Level 8.3L Height (Feet): 5 Height (Inches): 2.00 Weight (Pounds): 158 General Appearance: lethargic EENT: normal ENT inspection Neck: normal alignment Cardiovascular: normal peripheral pulses, normal rate, regular rhythm Respiratory/Chest: chest wall non-tender, lungs clear, normal breath sounds Abdomen: normal bowel sounds, non tender, soft Extremities: normal inspection Edema: 1+ Arm (L), 1+ Arm (R), 1+ Leg (L), 1+ Leg (R), 1+ Pedal (L), 1+ Pedal ( R), 1+ Generalized Edema: trace edema Neurologic: responsive, motor weakness Skin: normal pigmentation, warm/dry Naun Geiger DO Jul 29, 2018 08:31
--- NOTE | 2018-07-29 08:33 | General Progress Note ---
Assessment/Plan Problem List: (1) Pleural effusion ICD Codes: J90 - Pleural effusion, not elsewhere classified SNOMED: 90839925 (2) Anemia ICD Codes: D64.9 - Anemia, unspecified SNOMED: 594296759 (3) Hypertension ICD Codes: I10 - Essential (primary) hypertension SNOMED: 38386914 (4) Diabetes mellitus ICD Codes: E11.9 - Type 2 diabetes mellitus without complications SNOMED: 21900370 (5) Abdominal pain ICD Codes: R10.9 - Unspecified abdominal pain SNOMED: 27994601 Assessment/Plan s/p thoracentesis Anemia workup reviewed from prior admission send for OB stool r/o GI bleed monitor H&H, prn transfusions bowel regime add colace ppi fu cardio/pulmonary recs fu labs Subjective ROS Limited/Unobtainable: Yes Allergies: Coded Allergies: LISINOPRIL (Verified Allergy, Unknown, 07/16/18) LOSARTAN (Verified Allergy, Unknown, 07/16/18) Objective Last 24 Hour Vital Signs Date Time Temp Pulse Resp B/P (MAP) Pulse Ox O2 Delivery O2 Flow Rate FiO2 07/29/18 05:22 151/68 (95) 07/29/18 04:53 169/67 07/29/18 04:00 98.4 66 18 169/67 (101) 96 07/29/18 01:10 158/70 (99) 07/29/18 00:00 98.0 63 20 177/79 (111) 96 07/28/18 23:52 177/79 07/28/18 21:00 Nasal Cannula 3.0 Nasal Cannula 3.0 07/28/18 20:34 61 161/77 07/28/18 20:00 98.3 61 19 161/77 (105) 96 07/28/18 19:36 62 18 Room Air 21 07/28/18 19:36 Room Air 21 07/28/18 19:36 97 Room Air 21 07/28/18 17:09 163/73 07/28/18 17:00 153/70 (97) 07/28/18 16:00 97.7 61 20 163/73 (103) 97 07/28/18 13:00 159/61 (93) 07/28/18 12:00 98.6 66 20 170/70 (103) 99 07/28/18 11:33 170/70 07/28/18 09:51 96 Room Air 21 07/28/18 09:51 67 18 Room Air 21 07/28/18 09:51 Room Air 21 07/28/18 09:00 Nasal Cannula 3.0 Nasal Cannula 3.0 07/28/18 08:47 69 149/87 07/28/18 08:47 69 149/87 Intake and Output 07/28/18 07/29/18 18:59 06:59 Intake Total 295 ml Balance 295 ml Intake Oral 240 ml IV Total 55 ml # Voids 3 2 Laboratory Tests 07/29/18 06:01: White Blood Count 4.1L, Red Blood Count 2.70L, Hemoglobin 8.7L, Hematocrit 27.2L , Mean Corpuscular Volume 101H, Mean Corpuscular Hemoglobin 32.3H, Mean Corpuscular Hemoglobin Concent 32.1, Red Cell Distribution Width 12.3, Platelet Count 179, Mean Platelet Volume 7.4, Neutrophils (%) (Auto) 61.2, Lymphocytes (% ) (Auto) 25.2, Monocytes (%) (Auto) 7.4, Eosinophils (%) (Auto) 5.3H, Basophils (%) (Auto) 0.8, Sodium Level 140, Potassium Level 4.7, Chloride Level 109H, Carbon Dioxide Level 21, Anion Gap 10, Blood Urea Nitrogen 45H, Creatinine 2.1H , Estimat Glomerular Filtration Rate 29.7, Glucose Level 214H, Calcium Level 8.3L Height (Feet): 5 Height (Inches): 2.00 Weight (Pounds): 158 General Appearance: alert EENT: normal ENT inspection Neck: supple Cardiovascular: normal rate Respiratory/Chest: decreased breath sounds Abdomen: normal bowel sounds, non tender, soft Extremities: non-tender Marco Antonio Yarbrough MD Jul 29, 2018 08:32
[2018-07-29] MEDS ORDERED: Docusate 100mg cap ORAL SCH (09:00)
[2018-07-29] MEDS: Carvedilol 12.5mg tab ORAL SCH ×2 (09:08→23:07)
[2018-07-29] MEDS: Calcium Acetate 667mg Tab ORAL SCH ×2 (09:09→13:12)
[2018-07-29] MEDS: Heparin 5000 units/ml inj SUBQ SCH ×2 (09:10→22:51)
[2018-07-29] MEDS: Cefepime HCl 1 GM in D5W 55 ML IVPB SCH (09:11)
--- NOTE | 2018-07-29 10:04 | Diagnostic Imaging Report ---
EXAM: XR Chest, 1 View CLINICAL HISTORY: INFECT TECHNIQUE: Frontal view of the chest. COMPARISON: Chest x-ray dated 07/26/18 FINDINGS: Lungs: Interval mildly worsened diffusely increased interstitial markings, most prominent in the right lung.. No new local consolidation. Pleural space: Costophrenic angles remain sharp. No visible pneumothorax. Heart: Unremarkable. No cardiomegaly. Mediastinum: Unremarkable. Bones/joints: Unremarkable. IMPRESSION: Interval mildly worsened diffusely increased interstitial markings, most prominent in the right lung.
--- NOTE | 2018-07-29 10:58 | Infectious Diseases Prog Note ---
Assessment/Plan Assessment/Plan Abx: IV Vancomycin 07/25- Cefepime 07/25- Assessment SOB, worsened- ?worsening edema vs infection(pNA) -07/26 CXR: Improved but still extensive bilateral interstitial and airspace edema versus infiltrates Suspect increasing left pleural effusion -07/25 CXR: Cardiomegaly. Bilateral extensive infiltrates versus edema and bilateral pleural effusions -sp cx p -neg: Legionella ag urine Gram positive bacteremic, -likely contamiannant -07/25 Bcx 3/4 CONS; 07/25 NTD, NTD -2d echo: no vegetatioms Moderate b/l pleural effusions -07/26 SP R thoracentesis: wbc 240, LDH 61, pH 8- transudate; cx p Afebrile No leukocytosis Recent Probable PNA, s/p Rx -07/19 CT chest: : Marked cardiomegaly. Bilateral pleural effusions. Pulmonary interstitial septal thickening, diffuse faint groundglass opacity, scattered slightly denser parenchymal opacities bilaterally. Findings most likely represent pulmonary edema. However, inflammatory etiologies are also possible. Mediastinal, possible bilateral hilar, possible left axillary lymphadenopathy. This is nonspecific, could indicate inflammatory process, lymphoproliferative disorder, metastatic lymphadenopathy among other possibilities. Splenomegaly. Suspect related to the above. Hepatomegaly -CXR: Reduced lung volumes with bibasilar infiltrates. -influenza sc neg -Bcx neg Recent Acute CHF exacerbation MICHELLE, imporved asthma HTN DM CVA w/ L side weakness [place] resident Plan: -Continue empiric IV Vancomycin and Cefepime #5/ pending sputum culture and pleural fluid culture -low threshold to add PO Fluconazole if no improvement. -07/20 SP Levaquin #5 -07/15 SP Unasyn x1 -f/u repaet Bcx x2 -f/u pleural fluid cx -f/u sp cx (fungal, bacterial), Cocci, CrAg, fungitell -Monitor CBC/C MP, temperatures -Aspiration precautions -Cards, Renal f/u Thank you for this consultation. Will continue to follow along with you. Subjective Allergies: Coded Allergies: LISINOPRIL (Verified Allergy, Unknown, 07/16/18) LOSARTAN (Verified Allergy, Unknown, 07/16/18) Subjective afebrile repaet Bcx NTD at Objective Vital Signs Last 24 Hour Vital Signs Date Time Temp Pulse Resp B/P (MAP) Pulse Ox O2 Delivery O2 Flow Rate FiO2 07/29/18 09:42 98.2 07/29/18 09:09 62 178/81 07/29/18 09:08 62 178/81 07/29/18 09:00 Nasal Cannula 3.0 Nasal Cannula 3.0 07/29/18 08:00 98.2 62 18 178/81 (113) 96 07/29/18 05:22 151/68 (95) 07/29/18 04:53 169/67 07/29/18 04:00 98.4 66 18 169/67 (101) 96 07/29/18 01:10 158/70 (99) 07/29/18 00:00 98.0 63 20 177/79 (111) 96 07/28/18 23:52 177/79 07/28/18 21:00 Nasal Cannula 3.0 Nasal Cannula 3.0 07/28/18 20:34 61 161/77 07/28/18 20:00 98.3 61 19 161/77 (105) 96 07/28/18 19:36 62 18 Room Air 21 07/28/18 19:36 Room Air 21 07/28/18 19:36 97 Room Air 21 07/28/18 17:09 163/73 07/28/18 17:00 153/70 (97) 07/28/18 16:00 97.7 61 20 163/73 (103) 97 07/28/18 13:00 159/61 (93) 07/28/18 12:00 98.6 66 20 170/70 (103) 99 07/28/18 11:33 170/70 Height (Feet): 5 Height (Inches): 2.00 Weight (Pounds): 158 Objective GENERAL: Calm in bed, oriented x3, slightly distress secondary to short of breath. CARDIOVASCULAR: No murmur. LUNGS: Poor exchange. ABDOMEN: Bowel sounds distant. EXTREMITIES: No cyanosis, clubbing, or edema. NEUROLOGIC: The patient moves all extremities, slightly weak Microbiology Date/Time Source Procedure Growth Status 07/26/18 12:15 Blood Blood Culture - Preliminary NO GROWTH AFTER 48 HOURS Resulted 07/26/18 12:00 Blood Blood Culture - Preliminary NO GROWTH AFTER 48 HOURS Resulted 07/26/18 13:10 Indwelling Cath Urine Culture - Final NO GROWTH AFTER 48 HOURS Complete Laboratory Tests Test 07/29/18 06:01 White Blood Count 4.1 K/UL (4.8-10.8) L Red Blood Count 2.70 M/UL (4.20-5.40) L Hemoglobin 8.7 G/DL (12.0-16.0) L Hematocrit 27.2 % (37.0-47.0) L Mean Corpuscular Volume 101 FL (80-99) H Mean Corpuscular Hemoglobin 32.3 PG (27.0-31.0) H Mean Corpuscular Hemoglobin Concent 32.1 G/DL (32.0-36.0) Red Cell Distribution Width 12.3 % (11.6-14.8) Platelet Count 179 K/UL (150-450) Mean Platelet Volume 7.4 FL (6.5-10.1) Neutrophils (%) (Auto) 61.2 % (45.0-75.0) Lymphocytes (%) (Auto) 25.2 % (20.0-45.0) Monocytes (%) (Auto) 7.4 % (1.0-10.0) Eosinophils (%) (Auto) 5.3 % (0.0-3.0) H Basophils (%) (Auto) 0.8 % (0.0-2.0) Sodium Level 140 MMOL/L (136-145) Potassium Level 4.7 MMOL/L (3.5-5.1) Chloride Level 109 MMOL/L (98-107) H Carbon Dioxide Level 21 MMOL/L (21-32) Anion Gap 10 mmol/L (5-15) Blood Urea Nitrogen 45 mg/dL (7-18) H Creatinine 2.1 MG/DL (0.55-1.30) H Estimat Glomerular Filtration Rate 29.7 mL/min (>60) Glucose Level 214 MG/DL (74-106) H Calcium Level 8.3 MG/DL (8.5-10.1) L Current Medications Medications (Trade) Dose Ordered Sig/Zara Route PRN Reason Start Time Stop Time Status Last Admin Dose Admin Acetaminophen (Tylenol) 650 mg Q4H PRN ORAL fever (temp>100.5F) 07/27/18 07:15 08/24/18 07:14 Albuterol/ Ipratropium (Albuterol/ Ipratropium) 3 ml Q4H PRN HHN Shortness of Breath 07/27/18 07:15 08/01/18 07:14 Amlodipine Besylate (Norvasc) 10 mg DAILY ORAL 07/27/18 09:00 08/24/18 08:59 07/29/18 09:09 Atorvastatin Calcium (Lipitor) 80 mg BEDTIME ORAL 07/27/18 21:00 08/24/18 20:59 07/28/18 20:34 Calcium Acetate (Phoslo) 667 mg TID ORAL 07/27/18 09:00 08/24/18 08:59 07/29/18 09:09 Carvedilol (Coreg) 37.5 mg EVERY 12 HOURS ORAL 07/27/18 09:00 08/24/18 08:59 07/29/18 09:08 Cefepime HCl 1 gm/ Dextrose 55 ml @ 110 mls/hr Q24H IVPB 07/27/18 09:00 08/02/18 08:59 07/29/18 09:11 Clonidine HCl (Catapres Tab) 0.1 mg Q4H PRN ORAL SBP>160 07/27/18 12:15 08/26/18 12:14 07/29/18 04:53 Clopidogrel Bisulfate (Plavix) 75 mg DAILY ORAL 07/27/18 09:00 08/24/18 08:59 07/29/18 09:09 Docusate Sodium (Colace) 100 mg TWICE A DAY ORAL 07/29/18 09:00 08/28/18 08:59 07/29/18 09:09 Gabapentin (Neurontin) 300 mg THREE TIMES A DAY ORAL 07/27/18 09:00 08/24/18 08:59 07/29/18 09:09 Heparin Sodium (Porcine) (Heparin 5000 units/ml) 5,000 units EVERY 12 HOURS SUBQ 07/27/18 09:00 08/24/18 08:59 07/29/18 09:10 Lorazepam (Ativan) 0.5 mg DAILYPRN PRN ORAL For Anxiety 07/27/18 09:00 08/03/18 08:59 Mirtazapine (Remeron) 7.5 mg BEDTIME ORAL 07/27/18 21:00 08/24/18 20:59 07/28/18 20:34 Morphine Sulfate (Morphine Sulfate) 4 mg Q4H PRN IVP Severe Pain (Pain Scale 7-10) 07/27/18 12:16 08/01/18 12:15 07/29/18 09:12 Ondansetron HCl (Zofran) 4 mg Q6H PRN IVP Nausea & Vomiting 07/27/18 07:15 08/24/18 07:14 Oxycodone/ Acetaminophen (Percocet 10/325) 1 tab Q6H PRN ORAL Moderate Pain (Pain Scale 4-6) 07/27/18 07:30 08/01/18 07:29 07/28/18 11:40 Polyethylene Glycol (Miralax) 17 gm DAILYPRN PRN ORAL Constipation 07/27/18 07:15 08/24/18 07:14 Temazepam (Restoril) 15 mg HSPRN PRN ORAL Insomnia 07/27/18 07:15 08/01/18 07:14 Trazodone HCl (Desyrel) 50 mg BEDTIME ORAL 07/27/18 21:00 08/24/18 20:59 07/28/18 20:34 Vancomycin HCl (Vanco rx to dose) 1 ea DAILY PRN MISC . 07/27/18 09:00 08/24/18 07:59 Juliane Mcdonald M.D. Jul 29, 2018 10:58
--- NOTE | 2018-07-29 14:29 | Nephrology Progress Note ---
Assessment/Plan Problem List: (1) Solitary kidney (2) Diabetes mellitus (3) Hypertension (4) Diabetic neuropathy (5) Anemia Assessment 1. MICHELLE 2.CKD Absent left kidney 3.HTN 4.CHF - normal Ej Fx 5.hypocalcemia 6. Anemia of CKD Plan adjust BP meds- Anemia beckman monitoring renal function avoid NSAID Replace electrolyte as need it per orders Subjective ROS Limited/Unobtainable: No Interval Events/Complaints coverage for Dr Park Constitutional: Reports: malaise, weakness Objective Objective Last 24 Hour Vital Signs Date Time Temp Pulse Resp B/P (MAP) Pulse Ox O2 Delivery O2 Flow Rate FiO2 07/29/18 13:56 98.5 07/29/18 12:21 179/81 07/29/18 12:00 98.5 66 18 179/81 (113) 96 07/29/18 09:09 62 178/81 07/29/18 09:08 62 178/81 07/29/18 09:00 Nasal Cannula 3.0 Nasal Cannula 3.0 07/29/18 08:00 98.2 62 18 178/81 (113) 96 07/29/18 05:22 151/68 (95) 07/29/18 04:53 169/67 07/29/18 04:00 98.4 66 18 169/67 (101) 96 07/29/18 01:10 158/70 (99) 07/29/18 00:00 98.0 63 20 177/79 (111) 96 07/28/18 23:52 177/79 07/28/18 21:00 Nasal Cannula 3.0 Nasal Cannula 3.0 07/28/18 20:34 61 161/77 07/28/18 20:00 98.3 61 19 161/77 (105) 96 07/28/18 19:36 62 18 Room Air 21 07/28/18 19:36 Room Air 21 07/28/18 19:36 97 Room Air 21 07/28/18 17:09 163/73 07/28/18 17:00 153/70 (97) 07/28/18 16:00 97.7 61 20 163/73 (103) 97 Intake and Output 07/28/18 07/29/18 19:00 07:00 Intake Total 295 ml Balance 295 ml Intake Oral 240 ml IV Total 55 ml # Voids 3 2 Laboratory Tests 07/29/18 06:01: White Blood Count 4.1L, Red Blood Count 2.70L, Hemoglobin 8.7L, Hematocrit 27.2L , Mean Corpuscular Volume 101H, Mean Corpuscular Hemoglobin 32.3H, Mean Corpuscular Hemoglobin Concent 32.1, Red Cell Distribution Width 12.3, Platelet Count 179, Mean Platelet Volume 7.4, Neutrophils (%) (Auto) 61.2, Lymphocytes (% ) (Auto) 25.2, Monocytes (%) (Auto) 7.4, Eosinophils (%) (Auto) 5.3H, Basophils (%) (Auto) 0.8, Sodium Level 140, Potassium Level 4.7, Chloride Level 109H, Carbon Dioxide Level 21, Anion Gap 10, Blood Urea Nitrogen 45H, Creatinine 2.1H , Estimat Glomerular Filtration Rate 29.7, Glucose Level 214H, Calcium Level 8.3L Height (Feet): 5 Height (Inches): 2.00 Weight (Pounds): 158 General Appearance: no apparent distress, lethargic Cardiovascular: bradycardia Respiratory/Chest: decreased breath sounds Abdomen: distended Abdullahi Newby MD Jul 29, 2018 14:29
[2018-07-29] MEDS ORDERED: HydrALAZINE 25mg tab ORAL SCH (14:30)
--- NOTE | 2018-07-29 15:44 | NUR ---
NURSE NOTES: Spoke with Yasmin in pharmacy who reported ok to give morphine and percocet 2 hours apart. Patient is requesting Rx for pain, will administer as ordered. Addendum: 07/29/18 at 1551 by Elina Tinsley RN Add: Yasmin in pharmacy clarified that patient's orders for morphine and percocet and not an order set. Addendum: 07/29/18 at 1553 by Elina Tinsley RN Grammatical error: orders for morphine and percocet ARE not an order set
--- NOTE | 2018-07-29 16:33 | NUR ---
PT Note Attempted to see patient for treatment but patient refused.
--- NOTE | 2018-07-29 16:51 | NUR ---
NURSE NOTES: Patient refusing vital signs. Educated patient two times that due to high blood pressure, it is important for regular assessment of vital signs for safety and treatment. Patient states she understands but still refuses. Attempted to take vital signs 2 times. Will continue to monitor.
[2018-07-29] MEDS: Minoxidil 2.5mg tab ORAL PRN (17:54)
[2018-07-29] MEDS: Docusate 100mg cap ORAL SCH (17:54)
--- NOTE | 2018-07-29 18:48 | Consultation ---
History of Present Illness General Chief Complaint: Dyspnea/Respdistress Reason for Consultation: ANEMIA Present Illness Allergies: Coded Allergies: LISINOPRIL (Verified Allergy, Unknown, 07/16/18) LOSARTAN (Verified Allergy, Unknown, 07/16/18) Medication History Scheduled Amlodipine Besylate* (Amlodipine Besylate*), 10 MG ORAL DAILY, (Reported) Aspirin* (Aspirin*), 81 MG ORAL DAILY, (Reported) Atorvastatin Calcium* (Lipitor*), 80 MG ORAL BEDTIME, (Reported) Calcium Acetate (Calcium Acetate), 667 MG PO TID, (Reported) Carvedilol (Coreg), 37.5 MG ORAL EVERY 12 HOURS, (Reported) Clopidogrel Bisulfate* (Plavix*), 75 MG ORAL DAILY, (Reported) Docusate Sodium* (Colace*), 100 MG ORAL TWICE A DAY, (Reported) Epoetin Yordan (Procrit), 4,000 UNIT SUBQ 3XW, (Reported) Ergocalciferol (Vitamin D2) (Vitamin D2), 50,000 UNIT PO WEEKLY, (Reported) Ferrous Sulfate* (Ferrous Sulfate*), 325 MG ORAL TWICE A DAY, (Reported) Furosemide* (Lasix*), 40 MG ORAL TWICE A DAY, (Reported) Gabapentin* (Gabapentin*), 300 MG ORAL THREE TIMES A DAY, (Reported) Heparin Sod (Porcine) (Heparin Sodium*), 5,000 UNITS SUBQ EVERY 12 HOURS, ( Reported) Hydralazine Hcl* (Hydralazine Hcl*), 100 MG ORAL EVERY 8 HOURS, (Reported) Insulin Glargine (Lantus), 15 UNITS SUBQ BID, (Reported) Insulin Lispro (Humalog), 0 SUBQ QID, (Reported) Insulin Lispro (Humalog), 6 UNITS SUBQ AC, (Reported) Iron Sucrose (Venofer), 100 MG IVP DAILY, (Reported) Isosorbide Dinitrate (Isordil), 40 MG PO TID, (Reported) Melatonin (Melatonin), 3 MG ORAL BEDTIME, (Reported) Mirtazapine* (Mirtazapine*), 7.5 MG ORAL BEDTIME, (Reported) Multivitamin with Minerals (Multivitamins with Minerals), 1 TAB ORAL DAILY, ( Reported) Polyethylene Glycol 3350* (Miralax*), 17 GM ORAL DAILY, (Reported) Trazodone Hcl* (Desyrel*), 50 MG ORAL BEDTIME, (Reported) Scheduled PRN Acetaminophen* (Acetaminophen 325MG Tablet*), 650 MG ORAL Q6H PRN for Mild Pain (Pain Scale 1-3), (Reported) Bisacodyl (Dulcolax), 10 MG RC DAILY PRN for IF MOM INEFFECTIVE, (Reported) Hydromorphone HCl/Pf (Dilaudid 0.5 mg/0.5 ml Syringe), 0.2 MG IVP Q4HR PRN for Breakthrough Pain, (Reported) Lorazepam* (Ativan*), 0.5 MG ORAL DAILY PRN for For Anxiety, (Reported) Nitroglycerin (Nitrostat), 0.4 MG SL Q5M X3 DOSES PRN for CHEST PAIN, (Reported) Ondansetron* (Zofran*), 4 MG IVP Q8H PRN for Nausea & Vomiting, (Reported) Oxycodone Hcl Ir* (Roxicodone Ir*), 5 MG ORAL Q4H PRN for Moderate Pain (Pain Scale 4-6), (Reported) Oxycodone Hcl/Acetaminophen 10-325* (Oxycodone-Acetaminophen 10-325*), 1 TAB ORAL Q4H PRN for Severe Pain (Pain Scale 7-10), (Reported) Miscellaneous Medications Unable to Obtain Medications (Unable To Obtain Meds), (Reported) Patient History Healthcare decision maker Resuscitation status Full Code Advanced Directive on File No Physical Exam Last 24 Hour Vital Signs Date Time Temp Pulse Resp B/P (MAP) Pulse Ox O2 Delivery O2 Flow Rate FiO2 07/29/18 17:54 167/73 07/29/18 17:42 99.4 66 20 167/73 (104) 96 07/29/18 16:18 98.5 07/29/18 14:35 175/78 07/29/18 14:29 65 175/78 (110) 07/29/18 13:56 98.5 07/29/18 12:21 179/81 07/29/18 12:00 98.5 66 18 179/81 (113) 96 07/29/18 09:09 62 178/81 07/29/18 09:08 62 178/81 07/29/18 09:00 Nasal Cannula 3.0 Nasal Cannula 3.0 07/29/18 08:00 98.2 62 18 178/81 (113) 96 07/29/18 05:22 151/68 (95) 07/29/18 04:53 169/67 07/29/18 04:00 98.4 66 18 169/67 (101) 96 07/29/18 01:10 158/70 (99) 07/29/18 00:00 98.0 63 20 177/79 (111) 96 07/28/18 23:52 177/79 07/28/18 21:00 Nasal Cannula 3.0 Nasal Cannula 3.0 07/28/18 20:34 61 161/77 07/28/18 20:00 98.3 61 19 161/77 (105) 96 07/28/18 19:36 62 18 Room Air 21 07/28/18 19:36 Room Air 21 07/28/18 19:36 97 Room Air 21 Intake and Output 07/28/18 07/29/18 19:00 07:00 Intake Total 295 ml Balance 295 ml Intake Oral 240 ml IV Total 55 ml # Voids 3 2 Laboratory Tests Test 07/29/18 06:01 White Blood Count 4.1 K/UL (4.8-10.8) L Red Blood Count 2.70 M/UL (4.20-5.40) L Hemoglobin 8.7 G/DL (12.0-16.0) L Hematocrit 27.2 % (37.0-47.0) L Mean Corpuscular Volume 101 FL (80-99) H Mean Corpuscular Hemoglobin 32.3 PG (27.0-31.0) H Mean Corpuscular Hemoglobin Concent 32.1 G/DL (32.0-36.0) Red Cell Distribution Width 12.3 % (11.6-14.8) Platelet Count 179 K/UL (150-450) Mean Platelet Volume 7.4 FL (6.5-10.1) Neutrophils (%) (Auto) 61.2 % (45.0-75.0) Lymphocytes (%) (Auto) 25.2 % (20.0-45.0) Monocytes (%) (Auto) 7.4 % (1.0-10.0) Eosinophils (%) (Auto) 5.3 % (0.0-3.0) H Basophils (%) (Auto) 0.8 % (0.0-2.0) Sodium Level 140 MMOL/L (136-145) Potassium Level 4.7 MMOL/L (3.5-5.1) Chloride Level 109 MMOL/L (98-107) H Carbon Dioxide Level 21 MMOL/L (21-32) Anion Gap 10 mmol/L (5-15) Blood Urea Nitrogen 45 mg/dL (7-18) H Creatinine 2.1 MG/DL (0.55-1.30) H Estimat Glomerular Filtration Rate 29.7 mL/min (>60) Glucose Level 214 MG/DL (74-106) H Calcium Level 8.3 MG/DL (8.5-10.1) L C-Reactive Protein, Quantitative < 0.4 mg/dL (0.00-0.90) Height (Feet): 5 Height (Inches): 2.00 Weight (Pounds): 158 Medications Current Medications Medications (Trade) Dose Ordered Sig/Zara Route PRN Reason Start Time Stop Time Status Last Admin Dose Admin Acetaminophen (Tylenol) 650 mg Q4H PRN ORAL fever (temp>100.5F) 07/27/18 07:15 08/24/18 07:14 Albuterol/ Ipratropium (Albuterol/ Ipratropium) 3 ml Q4H PRN HHN Shortness of Breath 07/27/18 07:15 08/01/18 07:14 Amlodipine Besylate (Norvasc) 10 mg DAILY ORAL 07/27/18 09:00 08/24/18 08:59 07/29/18 09:09 Atorvastatin Calcium (Lipitor) 10 mg BEDTIME ORAL 07/29/18 21:00 08/24/18 20:59 Carvedilol (Coreg) 37.5 mg EVERY 12 HOURS ORAL 07/27/18 09:00 08/24/18 08:59 07/29/18 09:08 Cefepime HCl 1 gm/ Dextrose 55 ml @ 110 mls/hr Q24H IVPB 07/27/18 09:00 08/02/18 08:59 07/29/18 09:11 Clopidogrel Bisulfate (Plavix) 75 mg DAILY ORAL 07/27/18 09:00 08/24/18 08:59 12/22/18 09:09 Docusate Sodium (Colace) 100 mg TID ORAL 07/29/18 18:00 08/28/18 08:59 07/29/18 17:54 Gabapentin (Neurontin) 300 mg THREE TIMES A DAY ORAL 07/27/18 09:00 08/24/18 08:59 07/29/18 17:54 Heparin Sodium (Porcine) (Heparin 5000 units/ml) 5,000 units EVERY 12 HOURS SUBQ 07/27/18 09:00 08/24/18 08:59 07/29/18 09:10 Hydralazine HCl (Apresoline) 25 mg Q6H ORAL 07/29/18 20:30 08/28/18 20:29 Lorazepam (Ativan) 0.5 mg DAILYPRN PRN ORAL For Anxiety 07/27/18 09:00 08/03/18 08:59 Minoxidil (Loniten) 2.5 mg Q4H PRN ORAL bp over 165 syst 07/29/18 14:30 08/28/18 14:29 07/29/18 17:54 Mirtazapine (Remeron) 7.5 mg BEDTIME ORAL 07/27/18 21:00 08/24/18 20:59 07/28/18 20:34 Morphine Sulfate (Morphine Sulfate) 4 mg Q4H PRN IVP Severe Pain (Pain Scale 7-10) 07/27/18 12:16 08/01/18 12:15 07/29/18 13:13 Ondansetron HCl (Zofran) 4 mg Q6H PRN IVP Nausea & Vomiting 07/27/18 07:15 08/24/18 07:14 Oxycodone/ Acetaminophen (Percocet 10/325) 1 tab Q6H PRN ORAL Moderate Pain (Pain Scale 4-6) 07/27/18 07:30 08/01/18 07:29 07/29/18 15:48 Pantoprazole (Protonix) 40 mg DAILY ORAL 07/29/18 14:30 08/28/18 14:29 07/29/18 14:35 Polyethylene Glycol (Miralax) 17 gm DAILYPRN PRN ORAL Constipation 07/27/18 07:15 08/24/18 07:14 Temazepam (Restoril) 15 mg HSPRN PRN ORAL Insomnia 07/27/18 07:15 08/01/18 07:14 Trazodone HCl (Desyrel) 50 mg BEDTIME ORAL 07/27/18 21:00 08/24/18 20:59 07/28/18 20:34 Vancomycin HCl (Vanco rx to dose) 1 ea DAILY PRN MISC . 07/27/18 09:00 08/24/18 07:59 Assessment/Plan Assessment/Plan Hematology Consultation DATE OF CONSULTATION: 07/29/2018 REFERRING PHYSICIAN: Naun Geiger D.O. REASON FOR CONSULTATION: Anemia eval HISTORY OF PRESENT ILLNESS: 53-year-old, female with past medical history significant for history of hypertension, history of CVA, history of congestive heart failure, and history of diabetes who was originally admitted at [facility] for congestive heart failure and increasing shortness of breath. The patient was sent to rehabilitation for continued treatment where the patient found to have an increasing shortness of breath and decreased oxygen saturation. Pleural eff noted. The patient also complained of chest tightness and lower extremity edema. Was brought in to ER. In ER at [place], the patient found to have a worsening of the kidney function. Also found to be in CHF. Was consequently admitted in the hospital. I was called for management of renal disease and electrolyte imbalance. Also noted to have anemia, poor a1c in the past and heme consulted. PAST MEDICAL HISTORY: 1. History of CVA with left-sided weakness. 2. History of hypertension. 3. History of diabetes. 4. History of congestive heart failure. 5. History of asthma. ALLERGIES: No known drug allergies. SOCIAL HISTORY: Currently was at a longterm. There is active history of tobacco, alcohol, or drug use. FAMILY HISTORY: Noncontributory. MEDICATIONS: Includin. Epogen 4000 units subcutaneous daily. 2. Atorvastatin 80 mg daily. 3. Hydralazine 100 mg daily. 4. Amlodipine 10 mg daily. 5. Aspirin 81 mg p.o. daily. 6. Carvedilol 37.5 mg daily. 7. Oxycodone 1 tablet p.r.n. pain. 8. Clonidine 0.1 p.r.n. blood pressure more than 160. 9. Ambien 5 mg p.o. daily. 10. Gabapentin 500 mg daily. 11. Tylenol 650 mg q.6 h. p.r.n. pain. 12. Zofran 4 mg p.r.n. nausea or vomiting. 13. Lorazepam 0.5 mg anxiety. 14. D50. REVIEW OF SYSTEMS: GENERAL: She complained of generalized weakness. Denies any fever, chills, or night sweats. HEAD AND NECK: Denies any dysphagia, odynophagia, blurry vision, headache, or neck stiffness. PULMONARY: Complained of mild shortness of breath and cough. No hemoptysis. CARDIOVASCULAR: Complained of chest tightness, orthopnea, PND, and leg swelling. GASTROINTESTINAL: Denies any nausea, vomiting, diarrhea, hematemesis, or hematochezia. GENITOURINARY: Denies any history of premature CAD. PHYSICAL EXAMINATION: Last 24 Hour Vital Signs Last 24 Hour Vital Signs Date Time Temp Pulse Resp B/P (MAP) Pulse Ox O2 Delivery O2 Flow Rate FiO2 07/29/18 17:54 167/73 07/29/18 17:42 99.4 66 20 167/73 (104) 96 07/29/18 16:18 98.5 07/29/18 14:35 175/78 07/29/18 14:29 65 175/78 (110) 07/29/18 13:56 98.5 07/29/18 12:21 179/81 07/29/18 12:00 98.5 66 18 179/81 (113) 96 07/29/18 09:09 62 178/81 07/29/18 09:08 62 178/81 07/29/18 09:00 Nasal Cannula 3.0 Nasal Cannula 3.0 07/29/18 08:00 98.2 62 18 178/81 (113) 96 07/29/18 05:22 151/68 (95) 07/29/18 04:53 169/67 07/29/18 04:00 98.4 66 18 169/67 (101) 96 07/29/18 01:10 158/70 (99) 07/29/18 00:00 98.0 63 20 177/79 (111) 96 07/28/18 23:52 177/79 07/28/18 21:00 Nasal Cannula 3.0 Nasal Cannula 3.0 07/28/18 20:34 61 161/77 07/28/18 20:00 98.3 61 19 161/77 (105) 96 07/28/18 19:36 62 18 Room Air 21 07/28/18 19:36 Room Air 21 07/28/18 19:36 97 Room Air 21 VITAL SIGNS: have been reviewed and are otherwise stable HEAD AND NECK: No JVP. No LAD. No thyromegaly. Extraocular movements intact. Pupils are reactive to light and accommodation. LUNGS: Decreased breathing sounds on both sides. CARDIAC: Regular rate and rhythm. S1-S2. No murmur. No rub. ABDOMEN: Soft, nontender, and nondistended. EXTREMITIES: 1+ edema. No clubbing. No cyanosis. Laboratory Tests Test 07/29/18 06:01 White Blood Count 4.1 K/UL (4.8-10.8) L Red Blood Count 2.70 M/UL (4.20-5.40) L Hemoglobin 8.7 G/DL (12.0-16.0) L Hematocrit 27.2 % (37.0-47.0) L Mean Corpuscular Volume 101 FL (80-99) H Mean Corpuscular Hemoglobin 32.3 PG (27.0-31.0) H Mean Corpuscular Hemoglobin Concent 32.1 G/DL (32.0-36.0) Red Cell Distribution Width 12.3 % (11.6-14.8) Platelet Count 179 K/UL (150-450) Mean Platelet Volume 7.4 FL (6.5-10.1) Neutrophils (%) (Auto) 61.2 % (45.0-75.0) Lymphocytes (%) (Auto) 25.2 % (20.0-45.0) Monocytes (%) (Auto) 7.4 % (1.0-10.0) Eosinophils (%) (Auto) 5.3 % (0.0-3.0) H Basophils (%) (Auto) 0.8 % (0.0-2.0) Sodium Level 140 MMOL/L (136-145) Potassium Level 4.7 MMOL/L (3.5-5.1) Chloride Level 109 MMOL/L (98-107) H Carbon Dioxide Level 21 MMOL/L (21-32) Anion Gap 10 mmol/L (5-15) Blood Urea Nitrogen 45 mg/dL (7-18) H Creatinine 2.1 MG/DL (0.55-1.30) H Estimat Glomerular Filtration Rate 29.7 mL/min (>60) Glucose Level 214 MG/DL (74-106) H Calcium Level 8.3 MG/DL (8.5-10.1) L C-Reactive Protein, Quantitative < 0.4 mg/dL (0.00-0.90) Current Medications Medications (Trade) Dose Ordered Sig/Zara Route PRN Reason Start Time Stop Time Status Last Admin Dose Admin Acetaminophen (Tylenol) 650 mg Q4H PRN ORAL fever (temp>100.5F) 07/27/18 07:15 08/24/18 07:14 Albuterol/ Ipratropium (Albuterol/ Ipratropium) 3 ml Q4H PRN HHN Shortness of Breath 07/27/18 07:15 08/01/18 07:14 Amlodipine Besylate (Norvasc) 10 mg DAILY ORAL 07/27/18 09:00 08/24/18 08:59 07/29/18 09:09 Atorvastatin Calcium (Lipitor) 10 mg BEDTIME ORAL 07/29/18 21:00 08/24/18 20:59 Carvedilol (Coreg) 37.5 mg EVERY 12 HOURS ORAL 07/27/18 09:00 08/24/18 08:59 07/29/18 09:08 Cefepime HCl 1 gm/ Dextrose 55 ml @ 110 mls/hr Q24H IVPB 07/27/18 09:00 08/02/18 08:59 07/29/18 09:11 Clopidogrel Bisulfate (Plavix) 75 mg DAILY ORAL 07/27/18 09:00 08/24/18 08:59 07/29/18 09:09 Docusate Sodium (Colace) 100 mg TID ORAL 07/29/18 18:00 08/28/18 08:59 07/29/18 17:54 Gabapentin (Neurontin) 300 mg THREE TIMES A DAY ORAL 07/27/18 09:00 08/24/18 08:59 07/29/18 17:54 Heparin Sodium (Porcine) (Heparin 5000 units/ml) 5,000 units EVERY 12 HOURS SUBQ 07/27/18 09:00 08/24/18 08:59 07/29/18 09:10 Hydralazine HCl (Apresoline) 25 mg Q6H ORAL 07/29/18 20:30 08/28/18 20:29 Lorazepam (Ativan) 0.5 mg DAILYPRN PRN ORAL For Anxiety 07/27/18 09:00 08/03/18 08:59 Minoxidil (Loniten) 2.5 mg Q4H PRN ORAL bp over 165 syst 07/29/18 14:30 08/28/18 14:29 07/29/18 17:54 Mirtazapine (Remeron) 7.5 mg BEDTIME ORAL 07/27/18 21:00 08/24/18 20:59 07/28/18 20:34 Morphine Sulfate (Morphine Sulfate) 4 mg Q4H PRN IVP Severe Pain (Pain Scale 7-10) 07/27/18 12:16 08/01/18 12:15 07/29/18 13:13 Ondansetron HCl (Zofran) 4 mg Q6H PRN IVP Nausea & Vomiting 07/27/18 07:15 08/24/18 07:14 Oxycodone/ Acetaminophen (Percocet 10/325) 1 tab Q6H PRN ORAL Moderate Pain (Pain Scale 4-6) 07/27/18 07:30 08/01/18 07:29 07/29/18 15:48 Pantoprazole (Protonix) 40 mg DAILY ORAL 07/29/18 14:30 08/28/18 14:29 07/29/18 14:35 Polyethylene Glycol (Miralax) 17 gm DAILYPRN PRN ORAL Constipation 07/27/18 07:15 08/24/18 07:14 Temazepam (Restoril) 15 mg HSPRN PRN ORAL Insomnia 07/27/18 07:15 08/01/18 07:14 Trazodone HCl (Desyrel) 50 mg BEDTIME ORAL 07/27/18 21:00 08/24/18 20:59 07/28/18 20:34 Vancomycin HCl (Vanco rx to dose) 1 ea DAILY PRN MISC . 07/27/18 09:00 08/24/18 07:59 Labs: reviewed Imaging: reviewed ASSESSMENT/RECS: #. Anemia of chronic disease -- patient with ongoing kidney damage, cr is worse now --> anemia panel has been ordered and results are pending, incl tsh, ferritin, tibc, esr, b12, folate, fibrinogen, iron % --> nephrology has been consulted --> continue on epogen --> transfuse if hgb is <7 --> hemolysis w/u has been reviewed # Acute versus chronic renal failure. as per renal etiology of acute renal failure is cardiorenal syndrome, prerenal azotemia versus unstable --> bp to improve on current meds #. Coagulopathy with elevated inr --> recheck in several days, if persists consider ordering mixing Pt/Ptt study #. Chronic kidney disease, most likely due to diabetic nephropathy since the patient has some degree of diabetic neuropathy. --> as per nephro #. History of congestive heart failure, but at this point the patient seems to be euvolemic. --> per cardiology #. 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 #. Uncontrolled hypertension. --> now better #. Pleural eff s/p graciea Greatly appreciate consultation Amandeep Howell MD Jul 29, 2018 18:48
--- NOTE | 2018-07-29 19:42 | NUR ---
HAND-OFF: Report given to Janette RODRIGUEZ.
--- NOTE | 2018-07-29 19:53 | NUR ---
NURSE NOTES: Patient in bed, awake, verbally responsive. No complaints of pain at this time. No s/s distress noted. Bed low position, call light within reach, bed alarm on. Will continue to monitor. Patient requested to have a shower but per am nurse and patient, she cannot walk. Nurse offered patient bed bath instead since no one can assist her in the shower at this time. Patient refused bed bath.
[2018-07-29] MEDS: HydrALAZINE 25mg tab ORAL SCH (20:54)
[2018-07-29 21:49] LABS: APPEARANCE,URINE CLEAR; BILIRUBIN, URINE NEGATIVE (NEGATIVE); COLOR,URINE PALE YELLOW; GLUCOSE, URINE (UA) 2+ (NEGATIVE); KETONES,URINE NEGATIVE (NEGATIVE); LEUKOCYTE ESTERASE ,URINE NEGATIVE (NEGATIVE); NITRITE,URINE NEGATIVE (NEGATIVE); PH,URINE 6.5 (4.5-8.0); PROTEIN,URINE 4+ (NEGATIVE); UROBILINOGEN,URINE NORMAL MG/DL (0.0-1.0)
[2018-07-29] MEDS: TraZODone 50mg tab ORAL SCH (22:50)
--- NOTE | 2018-07-29 23:22 | NUR ---
NURSE NOTES: New IV access right wrist 24 gauge, patent. Removed old IV access on right hand.
--- NOTE | 2018-07-30 00:55 | NUR ---
NURSE NOTES: Went to assess patient's pain again for pain medication, patient noted to be asleep, no distress noted.
[2018-07-30 03:13] VITALS: BP 172/78
[2018-07-30] MEDS: HydrALAZINE 25mg tab ORAL SCH ×2 (03:15→08:56)
[2018-07-30] MEDS: Morphine Sulfate 2mg/ml Inj IVP PRN ×4 (03:15→21:07)
[2018-07-30 05:56] LABS: EOSINOPHILS % (AUTO) 3.6 % (0.0-3.0); HEMOGLOBIN 8.6 G/DL (12.0-16.0); LYMPHOCYTES % (AUTO) 27.5 % (20.0-45.0); MEAN CORPUSCULAR VOLUME 99 FL (80-99); MONOCYTES % (AUTO) 5.8 % (1.0-10.0); NEUTROPHILS % (AUTO) 62.1 % (45.0-75.0); PLATELET COUNT 178 K/UL (150-450); RED BLOOD COUNT 2.64 M/UL (4.20-5.40); RED CELL DISTRIBUTION WIDTH 11.9 % (11.6-14.8); WHITE BLOOD COUNT 4.5 K/UL (4.8-10.8)
[2018-07-30 06:00] VITALS: BP 171/75
[2018-07-30] MEDS: Minoxidil 2.5mg tab ORAL PRN ×2 (06:17→15:47)
[2018-07-30 06:22] LABS: % IRON SATURATION 28 % (15-50); IRON 51 ug/dL (50-175); TOTAL IRON BINDING CAPACITY 181 ug/dL (250-450)
[2018-07-30 06:35] LABS: ALANINE AMINOTRANSFERASE 28 U/L (12-78); ALBUMIN 2.5 G/DL (3.4-5.0); ALBUMIN/GLOBULIN RATIO 0.7 (1.0-2.7); ALKALINE PHOSPHATASE 87 U/L (46-116); ANION GAP 9 mmol/L (5-15); ASPARTATE AMINO TRANSFERASE 16 U/L (15-37); BILIRUBIN,TOTAL 0.3 MG/DL (0.2-1.0); BLOOD UREA NITROGEN 40 mg/dL (7-18); CALCIUM 8.4 MG/DL (8.5-10.1); CARBON DIOXIDE 23 MMOL/L (21-32); CHLORIDE 109 MMOL/L (98-107); CHOLESTEROL 102 MG/DL (< 200); CREATININE 2.2 MG/DL (0.55-1.30); FERRITIN 222 NG/ML (8-388); HDL CHOLESTEROL 41 MG/DL (40-60); POTASSIUM 4.3 MMOL/L (3.5-5.1); SODIUM 140 MMOL/L (136-145); TRIGLYCERIDES 142 MG/DL (30-150)
--- NOTE | 2018-07-30 07:13 | NUR ---
HAND-OFF: Report given to ADRIANNA Silva RN.
--- NOTE | 2018-07-30 07:38 | NUR ---
NURSE NOTES: AWAKE/ALERT. NO CO PAIN. NO SOB. IN N0 DISTRESS.
[2018-07-30 07:44] LABS: CREATINE KINASE 201 U/L (26-308); GAMMA GLUTAMYL TRANSPEPTIDASE 72 U/L (5-85); PHOSPHORUS 3.6 MG/DL (2.5-4.9)
[2018-07-30 08:00] VITALS: BP 148/78
--- NOTE | 2018-07-30 08:09 | General Progress Note ---
Assessment/Plan Problem List: (1) Acute respiratory failure ICD Codes: J96.00 - Acute respiratory failure, unspecified whether with hypoxia or hypercapnia SNOMED: 44601077 (2) Pleural effusion ICD Codes: J90 - Pleural effusion, not elsewhere classified SNOMED: 41923552 (3) Hypertension ICD Codes: I10 - Essential (primary) hypertension SNOMED: 87777624 (4) Diabetes mellitus ICD Codes: E11.9 - Type 2 diabetes mellitus without complications SNOMED: 06837968 (5) ATN (acute tubular necrosis) ICD Codes: N17.0 - Acute kidney failure with tubular necrosis SNOMED: 94068197 (6) Abdominal pain ICD Codes: R10.9 - Unspecified abdominal pain SNOMED: 95132288 Status: stable, progressing Assessment/Plan o2 pulm tx pt diet eval bp bs control cbc bmp am dc plan w hh Subjective Constitutional: Reports: weakness Allergies: Coded Allergies: LISINOPRIL (Verified Allergy, Unknown, 07/16/18) LOSARTAN (Verified Allergy, Unknown, 07/16/18) All Systems: reviewed and negative except above Subjective o2nc tired in bed Objective Last 24 Hour Vital Signs Date Time Temp Pulse Resp B/P (MAP) Pulse Ox O2 Delivery O2 Flow Rate FiO2 07/30/18 07:07 97.1 07/30/18 06:17 171/75 07/30/18 06:00 65 171/75 (107) 07/30/18 03:45 97.1 07/30/18 03:15 172/78 07/30/18 03:13 97.1 62 18 172/78 (109) 99 07/29/18 23:10 98.3 63 20 116/78 (91) 96 07/29/18 23:07 63 116/78 07/29/18 20:54 169/75 07/29/18 20:54 Nasal Cannula 3.0 Nasal Cannula 3.0 07/29/18 20:18 98.2 66 18 169/75 (106) 96 07/29/18 19:17 96 Room Air 21 07/29/18 19:17 Room Air 21 07/29/18 19:17 66 20 Room Air 21 07/29/18 17:54 167/73 07/29/18 17:42 99.4 66 20 167/73 (104) 96 12/22/18 14:35 175/78 07/29/18 14:29 65 175/78 (110) 07/29/18 12:21 179/81 07/29/18 12:00 98.5 66 18 179/81 (113) 96 07/29/18 09:09 62 178/81 18 09:08 62 178/81 07/29/18 09:00 Nasal Cannula 3.0 Nasal Cannula 3.0 Intake and Output 07/29/18 07/30/18 18:59 06:59 Intake Total 1000 ml 240 ml Balance 1000 ml 240 ml Intake Oral 1000 ml 240 ml # Voids 2 Laboratory Tests 07/29/18 21:42: Urine Color Pale yellow, Urine Appearance Clear, Urine pH 6.5, Urine Specific [place] 1.010, Urine Protein 4+H, Urine Glucose (UA) 2+H, Urine Ketones Negative , Urine Blood 3+H, Urine Nitrite Negative, Urine Bilirubin Negative, Urine Urobilinogen Normal, Urine Leukocyte Esterase Negative, Urine RBC 2-4H, Urine WBC 0-2, Urine Squamous Epithelial Cells Few, Urine Bacteria Few 07/30/18 04:50: White Blood Count 4.5L, Red Blood Count 2.64L, Hemoglobin 8.6L, Hematocrit 26.0L , Mean Corpuscular Volume 99, Mean Corpuscular Hemoglobin 32.5H, Mean Corpuscular Hemoglobin Concent 33.0, Red Cell Distribution Width 11.9, Platelet Count 178, Mean Platelet Volume 7.2, Neutrophils (%) (Auto) 62.1, Lymphocytes (% ) (Auto) 27.5, Monocytes (%) (Auto) 5.8, Eosinophils (%) (Auto) 3.6H, Basophils (%) (Auto) 1.0, Sodium Level 140, Potassium Level 4.3, Chloride Level 109H, Carbon Dioxide Level 23, Anion Gap 9, Blood Urea Nitrogen 40H, Creatinine 2.2H, Estimat Glomerular Filtration Rate 28.1, Glucose Level 195H, Hemoglobin A1c 5.2 , Uric Acid 6.5, Calcium Level 8.4L, Phosphorus Level 3.6, Magnesium Level 2.3, Iron Level 51, Total Iron Binding Capacity 181L, Percent Iron Saturation 28, Unsaturated Iron Binding 130, Ferritin 222, Total Bilirubin 0.3, Gamma Glutamyl Transpeptidase 72, Aspartate Amino Transf (AST/SGOT) 16, Alanine Aminotransferase (ALT/SGPT) 28, Alkaline Phosphatase 87, Total Creatine Kinase 201, Pro-B-Type Natriuretic Peptide 75503P, Total Protein 6.0L, Albumin 2.5L, Globulin 3.5, Albumin/Globulin Ratio 0.7L, Triglycerides Level 142, Cholesterol Level 102, LDL Cholesterol 54, HDL Cholesterol 41, Cholesterol/HDL Ratio 2.5L, Vitamin B12 Level 869, Folate 9.0, Thyroid Stimulating Hormone (TSH) 0.758, Random Vancomycin Level 14.4 Height (Feet): 5 Height (Inches): 2.00 Weight (Pounds): 158 General Appearance: lethargic EENT: normal ENT inspection Neck: normal alignment Cardiovascular: normal peripheral pulses, normal rate, regular rhythm Respiratory/Chest: chest wall non-tender, decreased breath sounds Abdomen: normal bowel sounds, non tender, soft Extremities: normal inspection Edema: no edema noted Arm (L), no edema noted Arm (R), no edema noted Leg (L), no edema noted Leg (R), no edema noted Pedal (L), no edema noted Pedal (R), no edema noted Generalized Neurologic: motor weakness Skin: normal pigmentation, warm/dry Naun Geiger DO Jul 30, 2018 08:09
--- NOTE | 2018-07-30 08:32 | General Progress Note ---
Assessment/Plan Problem List: (1) Pleural effusion ICD Codes: J90 - Pleural effusion, not elsewhere classified SNOMED: 59693624 (2) Anemia ICD Codes: D64.9 - Anemia, unspecified SNOMED: 085301245 (3) Hypertension ICD Codes: I10 - Essential (primary) hypertension SNOMED: 82905898 (4) Diabetes mellitus ICD Codes: E11.9 - Type 2 diabetes mellitus without complications SNOMED: 27919472 (5) Abdominal pain ICD Codes: R10.9 - Unspecified abdominal pain SNOMED: 95821373 Assessment/Plan s/p thoracentesis Anemia workup reviewed from prior admission send for OB stool r/o GI bleed monitor H&H, prn transfusions bowel regime add colace and miralax ppi fu cardio/pulmonary recs fu labs Subjective ROS Limited/Unobtainable: Yes Allergies: Coded Allergies: LISINOPRIL (Verified Allergy, Unknown, 07/16/18) LOSARTAN (Verified Allergy, Unknown, 07/16/18) Subjective c/o SOB Objective Last 24 Hour Vital Signs Date Time Temp Pulse Resp B/P (MAP) Pulse Ox O2 Delivery O2 Flow Rate FiO2 07/30/18 08:22 75 20 99 Room Air 07/30/18 08:11 Nasal Cannula 3.0 Room Air 07/30/18 08:11 94 Room Air 21 07/30/18 08:11 Room Air 21 07/30/18 08:08 69 18 94 Room Air 21 07/30/18 08:08 69 18 Room Air 21 07/30/18 08:00 99.1 71 18 148/78 (101) 99 07/30/18 07:07 97.1 07/30/18 06:17 171/75 07/30/18 06:00 65 171/75 (107) 07/30/18 03:45 97.1 07/30/18 03:15 172/78 07/30/18 03:13 97.1 62 18 172/78 (109) 99 07/29/18 23:10 98.3 63 20 116/78 (91) 96 07/29/18 23:07 63 116/78 07/29/18 20:54 169/75 07/29/18 20:54 Nasal Cannula 3.0 Nasal Cannula 3.0 07/29/18 20:18 98.2 66 18 169/75 (106) 96 07/29/18 19:17 96 Room Air 21 07/29/18 19:17 Room Air 21 07/29/18 19:17 66 20 Room Air 21 07/29/18 17:54 167/73 07/29/18 17:42 99.4 66 20 167/73 (104) 96 07/29/18 14:35 175/78 07/29/18 14:29 65 175/78 (110) 07/29/18 12:21 179/81 07/29/18 12:00 98.5 66 18 179/81 (113) 96 07/29/18 09:09 62 178/81 07/29/18 09:08 62 178/81 07/29/18 09:00 Nasal Cannula 3.0 Nasal Cannula 3.0 Intake and Output 07/29/18 07/30/18 18:59 06:59 Intake Total 1000 ml 240 ml Balance 1000 ml 240 ml Intake Oral 1000 ml 240 ml # Voids 2 Laboratory Tests 07/29/18 21:42: Urine Color Pale yellow, Urine Appearance Clear, Urine pH 6.5, Urine Specific [place] 1.010, Urine Protein 4+H, Urine Glucose (UA) 2+H, Urine Ketones Negative , Urine Blood 3+H, Urine Nitrite Negative, Urine Bilirubin Negative, Urine Urobilinogen Normal, Urine Leukocyte Esterase Negative, Urine RBC 2-4H, Urine WBC 0-2, Urine Squamous Epithelial Cells Few, Urine Bacteria Few 07/30/18 04:50: White Blood Count 4.5L, Red Blood Count 2.64L, Hemoglobin 8.6L, Hematocrit 26.0L , Mean Corpuscular Volume 99, Mean Corpuscular Hemoglobin 32.5H, Mean Corpuscular Hemoglobin Concent 33.0, Red Cell Distribution Width 11.9, Platelet Count 178, Mean Platelet Volume 7.2, Neutrophils (%) (Auto) 62.1, Lymphocytes (% ) (Auto) 27.5, Monocytes (%) (Auto) 5.8, Eosinophils (%) (Auto) 3.6H, Basophils (%) (Auto) 1.0, Sodium Level 140, Potassium Level 4.3, Chloride Level 109H, Carbon Dioxide Level 23, Anion Gap 9, Blood Urea Nitrogen 40H, Creatinine 2.2H, Estimat Glomerular Filtration Rate 28.1, Glucose Level 195H, Hemoglobin A1c 5.2 , Uric Acid 6.5, Calcium Level 8.4L, Phosphorus Level 3.6, Magnesium Level 2.3, Iron Level 51, Total Iron Binding Capacity 181L, Percent Iron Saturation 28, Unsaturated Iron Binding 130, Ferritin 222, Total Bilirubin 0.3, Gamma Glutamyl Transpeptidase 72, Aspartate Amino Transf (AST/SGOT) 16, Alanine Aminotransferase (ALT/SGPT) 28, Alkaline Phosphatase 87, Total Creatine Kinase 201, Pro-B-Type Natriuretic Peptide 21075S, Total Protein 6.0L, Albumin 2.5L, Globulin 3.5, Albumin/Globulin Ratio 0.7L, Triglycerides Level 142, Cholesterol Level 102, LDL Cholesterol 54, HDL Cholesterol 41, Cholesterol/HDL Ratio 2.5L, Vitamin B12 Level 869, Folate 9.0, Thyroid Stimulating Hormone (TSH) 0.758, Random Vancomycin Level 14.4 Height (Feet): 5 Height (Inches): 2.00 Weight (Pounds): 158 General Appearance: alert EENT: normal ENT inspection Neck: supple Cardiovascular: normal rate Respiratory/Chest: decreased breath sounds Abdomen: normal bowel sounds, non tender, soft Extremities: non-tender Marco Antonio Yarbrough MD Jul 30, 2018 08:32
[2018-07-30] MEDS: Carvedilol 12.5mg tab ORAL SCH ×2 (08:55→20:37)
[2018-07-30] MEDS: Docusate 100mg cap ORAL SCH ×3 (08:56→17:16)
[2018-07-30] MEDS: Cefepime HCl 1 GM in D5W 55 ML IVPB SCH (08:57)
[2018-07-30] MEDS: Heparin 5000 units/ml inj SUBQ SCH ×2 (09:05→20:38)
[2018-07-30] MEDS: Lactulose 10gm/15ml UDC ORAL SCH ×3 (09:48→17:16)
[2018-07-30 12:01] VITALS: BP 162/68
--- NOTE | 2018-07-30 12:30 | Consultation ---
DATE OF CONSULTATION: 07/26/2018 CARDIOLOGY CONSULTATION CONSULTING PHYSICIAN: Kwesi Zee M.D. REFERRING PHYSICIAN: Naun Geiger D.O. REASON FOR CONSULTATION: Management of shortness of breath. HISTORY OF PRESENT ILLNESS: The patient is a very unfortunate 53-year-old female, who presents to the emergency department with complaints of shortness of breath. She was apparently discharged from the hospital with diagnosis of pneumonia yesterday and however her respiratory status did not improve and she continued to have shortness of breath as well as mild chest discomfort and heaviness, decided to come to the hospital. At the time of arrival to the hospital, her blood pressure was 190/71 mmHg and heart rate was 90. Initial troponin I level was negative at 0.03. However, her proBNP level was 8708. She was found to be anemic with hemoglobin of 9.6 and hematocrit of 29.6%. Her BUN and creatinine was elevated at 66 and 2.8 and slight elevation of potassium at 5.7. Chest x-ray at the time of arrival to the hospital showed enlarged heart, diffuse extensive interstitial and airspace edema versus infiltrate bilaterally, which was worse than prior examination. There was also moderate bilateral pleural effusion. After the patient was seen by Pulmonary therapeutic consultant, an ultrasound-guided right thoracentesis was done, which yielded 500 mL of fluid. Cardiology consultation was made at request of Dr. Geiger, to manage the patient's shortness of breath from cardiac standpoint. On July 17, 2018, the patient had a 2D echocardiography, which had revealed normal LV systolic function with LVEF of about 60%, mild left ventricular hypertrophy, mild to moderate mitral regurgitation, but normal left ventricular diastolic function. The right ventricular systolic pressure was however elevated at 54 mmHg consistent with moderate pulmonary hypertension. There was also small pericardial effusion. Her dilated IVC of 2.4 cm was also suggestive of increased right atrial pressure approximately 10 mmHg. She also had a V/Q scan, which showed low probability for pulmonary embolism back in July 17, 2018 on her previous admission to this facility. PAST MEDICAL HISTORY: 1. Hypertension. 2. History of diabetes mellitus. 3. 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 4. History of peripheral neuropathy. 5. History of moderate pulmonary hypertension per echocardiography on July 17, 2018. ALLERGIES: To lisinopril and losartan. MEDICATIONS: List of medications include acetaminophen 650 every six hours p.r.n. mild pain, amlodipine 10 mg p.o. daily, aspirin 81 mg p.o. daily, Lipitor 80 mg p.o. nightly, Dulcolax 10 mg rectal daily p.r.n. constipation, calcium acetate 667 mg p.o. t.i.d., carvedilol every 12 hours, Plavix 75 mg p.o. daily, Colace 100 mg twice daily, Procrit 4000 units subcutaneous three times a week, vitamin D2 50,000 units p.o. every weekly, ferrous sulfate 325 twice daily, furosemide 40 mg p.o. twice daily, gabapentin 300 mg three times a day, heparin sulfate 5000 units subcutaneous q.12 hours, hydralazine 100 mg p.o. q. 8 h., Dilaudid 0.2 mg IV push q 4h. p.r.n. breakthrough pain, insulin Lantus 15 units subcutaneous b.i.d., insulin Humalog 6 units subcutaneous before meals, iron sucrose 100 mg IV push daily, Isordil 40 mg p.o. three times daily, lorazepam 0.5 mg daily p.r.n. anxiety, melatonin 3 mg p.o. at bedtime, mirtazapine 7.5 mg at bedtime, multivitamin one tablet p.o. daily, Nitrostat 0.4 mg sublingual q.5 minutes x3 dose p.r.n. chest pain, , Zofran 4 mg IV q. 8 h. p.r.n. nausea and vomiting, oxycodone 5 mg oral q. 4h. p.r.n. moderate pain, MiraLAX 17 g p.o. daily, and trazodone 50 mg at bedtime. FAMILY HISTORY: No premature coronary artery disease in first-degree relatives. PAST SURGICAL HISTORY: Right thoracentesis. SOCIAL HISTORY: Denies any tobacco, alcohol, or illicit drug use. REVIEW OF SYSTEMS: HEENT: Denies any headache, diplopia, or blurred vision. CONSTITUTIONAL: Denies any fever, chills, night sweats, or weight loss. CARDIOVASCULAR: Denies any chest pain, PND, orthopnea or leg swelling. No syncope. PULMONARY: Worsening of shortness of breath with cough and chest heaviness. GASTROINTESTINAL: Denies any nausea, vomiting, diarrhea, constipation, abdominal pain, or GI bleed. GENITOURINARY: Denies any hematuria, dysuria, or incontinence. NEUROLOGIC: Has left hemiparesis. PHYSICAL EXAMINATION: VITAL SIGNS: Blood pressure at time of arrival to the hospital 190/71, respirations 36, pulse of 90, temperature 97.9 degrees Fahrenheit, and O2 saturation 93% on room air. GENERAL: The patient is a very unfortunate 53-year-old female, who is in mild respiratory distress. HEENT: Atraumatic and normocephalic. Anicteric. Pupils are equal, round, and reactive to light and accommodation. Extraocular muscles intact. NECK: JVP less than 5 cm. No carotid bruit. Carotid upstrokes 2+ bilaterally. LUNGS: Bilateral lower crackles. Diminished breath sounds on both lungs and the bases. CARDIOVASCULAR: Normal S1, S2. Regular rate and rhythm. No murmurs, gallops, or rubs. Tachycardic. ABDOMEN: Soft, nontender, and nondistended. No hepatosplenomegaly. Positive bowel sounds. EXTREMITIES: No evidence of edema, clubbing, or cyanosis. DIAGNOSTIC AND LABORATORY DATA: Chest x-ray showed bilateral extensive infiltrates versus edema and bilateral pleural effusion. A 12-lead electrocardiogram shows sinus rhythm at a rate of 91, left atrial enlargement. Laboratory findings, WBC is 9.2, hemoglobin 9.6, hematocrit 29.6, and platelet count is 222. Sodium 139, potassium is 5.7, chloride 108, bicarbonate 23, BUN of 66, creatinine 2.8, glucose 203, calcium is 8.8. Troponin I 0.03, proBNP is 8708. ASSESSMENT AND PLAN: The patient is a very unfortunate 53-year-old female, seen in Cardiology consultation. 1. Dyspnea most likely secondary to bilateral pleural effusion. A 2D echocardiography July 17, 2018 showed normal LV systolic and diastolic function with LVEF of approximately 55%. I suspect that the patient's condition is due to bilateral extensive pneumonia with associated bilateral pleural effusion, status post right thoracentesis yielding about 500 mL of fluid, awaiting the chemistry, cell count, and gram stain. Continue IV antibiotics, pulmonary toilet, and diuretic therapy. 2. Moderate pulmonary hypertension. 3. Stage 5 CKD. Also explained hypervolemia in this patient as well. A 2D echocardiography has shown small pericardial effusion. Nephrology consultation. 4. Anemia, possible chronic kidney disease. 5. History of CVA with left hemiparesis. The patient requires to be on aspirin and statins. I would like to thank, Dr. Geiger, for allowing me to participate in care of this patient. Kwesi Zee M.D. DR: ALYX JOB#: [id number] CC:
--- NOTE | 2018-07-30 13:03 | General Progress Note ---
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 D/w Dr. Hagen and he concurred. Subjective Date patient seen: Jul 30, 2018 Time patient seen: 11:15 - am Allergies: Coded Allergies: LISINOPRIL (Verified Allergy, Unknown, 07/16/18) LOSARTAN (Verified Allergy, Unknown, 07/16/18) Subjective REVIEW OF SYSTEMS: Denies rash, fever, chills, sweating, dizziness, drowsiness, blurred vision, sore throat, change in her weight. No shortness of breath at this time. No chest pain, palpitations, or cough. No nausea, vomiting, diarrhea, or blood in the stool or urine. No bowel or bladder incontinence. She is complaining of generalized body pain. SUBJECTIVE: Patient is in bed and showing no signs of pain or distress. Pain has been tolerated on the Morphine. She has no new complaints at this time. Objective Last 24 Hour Vital Signs Date Time Temp Pulse Resp B/P (MAP) Pulse Ox O2 Delivery O2 Flow Rate FiO2 07/30/18 12:01 97.9 73 18 162/68 (99) 95 07/30/18 10:53 99.1 07/30/18 08:57 71 148/78 07/30/18 08:56 148/78 07/30/18 08:55 71 148/78 07/30/18 08:22 75 20 99 Room Air 07/30/18 08:11 Nasal Cannula 3.0 Room Air 07/30/18 08:11 94 Room Air 21 07/30/18 08:11 Room Air 21 07/30/18 08:08 69 18 94 Room Air 21 07/30/18 08:08 69 18 Room Air 21 07/30/18 08:00 99.1 71 18 148/78 (101) 99 07/30/18 07:07 97.1 07/30/18 06:17 171/75 07/30/18 06:00 65 171/75 (107) 07/30/18 03:15 172/78 07/30/18 03:13 97.1 62 18 172/78 (109) 99 07/29/18 23:10 98.3 63 20 116/78 (91) 96 07/29/18 23:07 63 116/78 07/29/18 20:54 169/75 07/29/18 20:54 Nasal Cannula 3.0 Nasal Cannula 3.0 07/29/18 20:18 98.2 66 18 169/75 (106) 96 07/29/18 19:17 96 Room Air 21 07/29/18 19:17 Room Air 21 07/29/18 19:17 66 20 Room Air 21 07/29/18 17:54 167/73 07/29/18 17:42 99.4 66 20 167/73 (104) 96 07/29/18 14:35 175/78 07/29/18 14:29 65 175/78 (110) Intake and Output 07/29/18 07/30/18 18:59 06:59 Intake Total 1000 ml 240 ml Balance 1000 ml 240 ml Intake Oral 1000 ml 240 ml # Voids 2 Laboratory Tests 07/29/18 21:42: Urine Color Pale yellow, Urine Appearance Clear, Urine pH 6.5, Urine Specific [place] 1.010, Urine Protein 4+H, Urine Glucose (UA) 2+H, Urine Ketones Negative , Urine Blood 3+H, Urine Nitrite Negative, Urine Bilirubin Negative, Urine Urobilinogen Normal, Urine Leukocyte Esterase Negative, Urine RBC 2-4H, Urine WBC 0-2, Urine Squamous Epithelial Cells Few, Urine Bacteria Few 07/30/18 04:50: White Blood Count 4.5L, Red Blood Count 2.64L, Hemoglobin 8.6L, Hematocrit 26.0L , Mean Corpuscular Volume 99, Mean Corpuscular Hemoglobin 32.5H, Mean Corpuscular Hemoglobin Concent 33.0, Red Cell Distribution Width 11.9, Platelet Count 178, Mean Platelet Volume 7.2, Neutrophils (%) (Auto) 62.1, Lymphocytes (% ) (Auto) 27.5, Monocytes (%) (Auto) 5.8, Eosinophils (%) (Auto) 3.6H, Basophils (%) (Auto) 1.0, Sodium Level 140, Potassium Level 4.3, Chloride Level 109H, Carbon Dioxide Level 23, Anion Gap 9, Blood Urea Nitrogen 40H, Creatinine 2.2H, Estimat Glomerular Filtration Rate 28.1, Glucose Level 195H, Hemoglobin A1c 5.2 , Uric Acid 6.5, Calcium Level 8.4L, Phosphorus Level 3.6, Magnesium Level 2.3, Iron Level 51, Total Iron Binding Capacity 181L, Percent Iron Saturation 28, Unsaturated Iron Binding 130, Ferritin 222, Total Bilirubin 0.3, Gamma Glutamyl Transpeptidase 72, Aspartate Amino Transf (AST/SGOT) 16, Alanine Aminotransferase (ALT/SGPT) 28, Alkaline Phosphatase 87, Total Creatine Kinase 201, Pro-B-Type Natriuretic Peptide 49670F, Total Protein 6.0L, Albumin 2.5L, Globulin 3.5, Albumin/Globulin Ratio 0.7L, Triglycerides Level 142, Cholesterol Level 102, LDL Cholesterol 54, HDL Cholesterol 41, Cholesterol/HDL Ratio 2.5L, Vitamin B12 Level 869, Folate 9.0, Thyroid Stimulating Hormone (TSH) 0.758, Random Vancomycin Level 14.4 Height (Feet): 5 Height (Inches): 2.00 Weight (Pounds): 158 Objective GENERAL: Alert, awake, and oriented. LUNGS: Decreased breath sounds bilaterally. HEART: S1 and S2 regular. ABDOMEN: Benign. EXTREMITIES: No cyanosis. No clubbing. NEURO: No changes. Kwabena Verduzco Jul 30, 2018 13:03
--- NOTE | 2018-07-30 14:21 | Nephrology Progress Note ---
Assessment/Plan Problem List: (1) Acute on chronic renal failure (2) Solitary kidney (3) Diabetes mellitus (4) Hypertension (5) Diabetic neuropathy (6) Anemia Assessment 1. MICHELLE 2.CKD Absent left kidney 3.HTN ? DM 4.CHF - normal Ej Fx 5.hypocalcemia 6. Anemia of CKD 7. CVA lt weak Plan adjust BP meds- Anemia beckman monitoring renal function avoid NSAID Replace electrolyte as need it per orders Subjective ROS Limited/Unobtainable: No Constitutional: Reports: malaise, other - more responsive Objective Objective Last 24 Hour Vital Signs Date Time Temp Pulse Resp B/P (MAP) Pulse Ox O2 Delivery O2 Flow Rate FiO2 07/30/18 12:01 97.9 73 18 162/68 (99) 95 07/30/18 10:53 99.1 07/30/18 08:57 71 148/78 07/30/18 08:56 148/78 07/30/18 08:55 71 148/78 07/30/18 08:22 75 20 99 Room Air 07/30/18 08:11 Nasal Cannula 3.0 Room Air 07/30/18 08:11 94 Room Air 21 07/30/18 08:11 Room Air 21 07/30/18 08:08 69 18 94 Room Air 21 07/30/18 08:08 69 18 Room Air 21 07/30/18 08:00 99.1 71 18 148/78 (101) 99 07/30/18 07:07 97.1 07/30/18 06:17 171/75 07/30/18 06:00 65 171/75 (107) 07/30/18 03:15 172/78 07/30/18 03:13 97.1 62 18 172/78 (109) 99 07/29/18 23:10 98.3 63 20 116/78 (91) 96 07/29/18 23:07 63 116/78 18 20:54 169/75 07/29/18 20:54 Nasal Cannula 3.0 Nasal Cannula 3.0 07/29/18 20:18 98.2 66 18 169/75 (106) 96 07/29/18 19:17 96 Room Air 21 07/29/18 19:17 Room Air 21 07/29/18 19:17 66 20 Room Air 21 07/29/18 17:54 167/73 07/29/18 17:42 99.4 66 20 167/73 (104) 96 07/29/18 14:35 175/78 07/29/18 14:29 65 175/78 (110) Intake and Output 07/29/18 07/30/18 19:00 07:00 Intake Total 1000 ml 240 ml Balance 1000 ml 240 ml Intake Oral 1000 ml 240 ml # Voids 2 Current Medications Medications (Trade) Dose Ordered Sig/Zara Route PRN Reason Start Time Stop Time Status Last Admin Dose Admin Acetaminophen (Tylenol) 650 mg Q4H PRN ORAL fever (temp>100.5F) 07/27/18 07:15 08/24/18 07:14 Albuterol/ Ipratropium (Albuterol/ Ipratropium) 3 ml Q4H PRN HHN Shortness of Breath 07/27/18 07:15 08/01/18 07:14 07/30/18 08:08 Amlodipine Besylate (Norvasc) 10 mg DAILY ORAL 07/27/18 09:00 08/24/18 08:59 07/30/18 08:57 Atorvastatin Calcium (Lipitor) 10 mg BEDTIME ORAL 07/29/18 21:00 08/24/18 20:59 07/29/18 22:50 Carvedilol (Coreg) 37.5 mg EVERY 12 HOURS ORAL 07/27/18 09:00 08/24/18 08:59 07/30/18 08:55 Cefepime HCl 1 gm/ Dextrose 55 ml @ 110 mls/hr Q24H IVPB 07/27/18 09:00 08/02/18 08:59 07/30/18 08:57 Clopidogrel Bisulfate (Plavix) 75 mg DAILY ORAL 07/27/18 09:00 08/24/18 08:59 07/30/18 08:54 Docusate Sodium (Colace) 100 mg TID ORAL 07/29/18 18:00 08/28/18 08:59 07/30/18 12:46 Gabapentin (Neurontin) 300 mg THREE TIMES A DAY ORAL 07/27/18 09:00 08/24/18 08:59 07/30/18 12:46 Heparin Sodium (Porcine) (Heparin 5000 units/ml) 5,000 units EVERY 12 HOURS SUBQ 07/27/18 09:00 08/24/18 08:59 07/30/18 09:05 Hydralazine HCl (Apresoline) 25 mg Q6H ORAL 07/29/18 20:30 08/28/18 20:29 07/30/18 08:56 Lactulose (Cephulac) 10 gm THREE TIMES A DAY ORAL 07/30/18 09:00 08/29/18 08:59 07/30/18 09:48 Lorazepam (Ativan) 0.5 mg DAILYPRN PRN ORAL For Anxiety 07/27/18 09:00 08/03/18 08:59 Minoxidil (Loniten) 2.5 mg Q4H PRN ORAL bp over 165 syst 07/29/18 14:30 08/28/18 14:29 07/30/18 06:17 Mirtazapine (Remeron) 7.5 mg BEDTIME ORAL 07/27/18 21:00 08/24/18 20:59 07/29/18 22:50 Morphine Sulfate (Morphine Sulfate) 4 mg Q4H PRN IVP Severe Pain (Pain Scale 7-10) 07/27/18 12:16 08/01/18 12:15 07/30/18 10:23 Ondansetron HCl (Zofran) 4 mg Q6H PRN IVP Nausea & Vomiting 07/27/18 07:15 08/24/18 07:14 Oxycodone/ Acetaminophen (Percocet 10/325) 1 tab Q6H PRN ORAL Moderate Pain (Pain Scale 4-6) 07/27/18 07:30 08/01/18 07:29 07/30/18 06:37 Pantoprazole (Protonix) 40 mg DAILY ORAL 07/29/18 14:30 08/28/18 14:29 07/30/18 08:56 Polyethylene Glycol (Miralax) 17 gm DAILYPRN PRN ORAL Constipation 07/27/18 07:15 08/24/18 07:14 Temazepam (Restoril) 15 mg HSPRN PRN ORAL Insomnia 07/27/18 07:15 08/01/18 07:14 Trazodone HCl (Desyrel) 50 mg BEDTIME ORAL 07/27/18 21:00 08/24/18 20:59 07/29/18 22:50 Vancomycin HCl (Vanco rx to dose) 1 ea DAILY PRN MISC . 07/27/18 09:00 08/24/18 07:59 Laboratory Tests 07/29/18 21:42: Urine Color Pale yellow, Urine Appearance Clear, Urine pH 6.5, Urine Specific [place] 1.010, Urine Protein 4+H, Urine Glucose (UA) 2+H, Urine Ketones Negative , Urine Blood 3+H, Urine Nitrite Negative, Urine Bilirubin Negative, Urine Urobilinogen Normal, Urine Leukocyte Esterase Negative, Urine RBC 2-4H, Urine WBC 0-2, Urine Squamous Epithelial Cells Few, Urine Bacteria Few 07/30/18 04:50: White Blood Count 4.5L, Red Blood Count 2.64L, Hemoglobin 8.6L, Hematocrit 26.0L , Mean Corpuscular Volume 99, Mean Corpuscular Hemoglobin 32.5H, Mean Corpuscular Hemoglobin Concent 33.0, Red Cell Distribution Width 11.9, Platelet Count 178, Mean Platelet Volume 7.2, Neutrophils (%) (Auto) 62.1, Lymphocytes (% ) (Auto) 27.5, Monocytes (%) (Auto) 5.8, Eosinophils (%) (Auto) 3.6H, Basophils (%) (Auto) 1.0, Sodium Level 140, Potassium Level 4.3, Chloride Level 109H, Carbon Dioxide Level 23, Anion Gap 9, Blood Urea Nitrogen 40H, Creatinine 2.2H, Estimat Glomerular Filtration Rate 28.1, Glucose Level 195H, Hemoglobin A1c 5.2 , Uric Acid 6.5, Calcium Level 8.4L, Phosphorus Level 3.6, Magnesium Level 2.3, Iron Level 51, Total Iron Binding Capacity 181L, Percent Iron Saturation 28, Unsaturated Iron Binding 130, Ferritin 222, Total Bilirubin 0.3, Gamma Glutamyl Transpeptidase 72, Aspartate Amino Transf (AST/SGOT) 16, Alanine Aminotransferase (ALT/SGPT) 28, Alkaline Phosphatase 87, Total Creatine Kinase 201, Pro-B-Type Natriuretic Peptide 13651U, Total Protein 6.0L, Albumin 2.5L, Globulin 3.5, Albumin/Globulin Ratio 0.7L, Triglycerides Level 142, Cholesterol Level 102, LDL Cholesterol 54, HDL Cholesterol 41, Cholesterol/HDL Ratio 2.5L, Vitamin B12 Level 869, Folate 9.0, Thyroid Stimulating Hormone (TSH) 0.758, Random Vancomycin Level 14.4 Height (Feet): 5 Height (Inches): 2.00 Weight (Pounds): 158 General Appearance: no apparent distress Respiratory/Chest: decreased breath sounds Abdomen: soft Abdullahi Newby MD Jul 30, 2018 14:21
[2018-07-30 16:00] VITALS: BP 161/72
[2018-07-30] MEDS: HydrALAZINE 50mg tab ORAL SCH (16:30)
--- NOTE | 2018-07-30 19:00 | NUR ---
NURSE NOTES: RESTING. IN NO APPARENT DISTRESS.
--- NOTE | 2018-07-30 19:16 | NUR ---
HAND-OFF: Report given to Bj FOY RN.
--- NOTE | 2018-07-30 19:29 | NUR ---
NURSE NOTES: Patient in bed, awake, alert, makes all needs known. No complaints of pain at this time. No s/s distress noted. Bed low position, call light within reach, bed alarm on. Will continue to monitor.
[2018-07-30 20:00] VITALS: BP_SYST 148; BP_SYST 155; BP_DIAS 68; BP_DIAS 77
--- NOTE | 2018-07-30 20:02 | General Progress Note ---
Assessment/Plan Assessment/Plan ASSESSMENT/RECS: #. Anemia of chronic disease -- patient with ongoing kidney damage, cr is worse now --> anemia panel has been reviewed and tsh, ferritin, tibc, esr, b12, folate, fibrinogen, iron % reviewed --> appreciate nephrology consulted --> continue on epogen --> transfuse if hgb is <7 --> hemolysis w/u has been reviewed # Leukopenia wbc in the 4-6 range --> hepatitis panel has been ordered # Acute versus chronic renal failure. as per renal etiology of acute renal failure is cardiorenal syndrome, prerenal azotemia versus unstable --> bp to improve on current meds #. Coagulopathy with elevated inr --> recheck in several days, if persists consider ordering mixing Pt/Ptt study #. History of congestive heart failure, but at this point the patient seems to be euvolemic. --> per cardiology #. 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 #. Uncontrolled hypertension. --> now better #. Pleural eff s/p thora Greatly appreciate consultation Subjective Constitutional: Denies: no symptoms, chills, diaphoresis, fever, malaise, weakness, other HEENT: Denies: no symptoms, eye pain, blurred vision, tearing, double vision, ear pain, ear discharge, nose pain, nose congestion, throat pain, throat swelling, mouth pain, mouth swelling, other Cardiovascular: Denies: no symptoms, chest pain, edema, irregular heart rate, lightheadedness, palpitations, syncope, other Respiratory: Denies: no symptoms, cough, orthopnea, shortness of breath, SOB with excertion, SOB at rest, sputum, stridor, wheezing, other Gastrointestinal/Abdominal: Denies: no symptoms, abdomen distended, abdominal pain, black stools, tarry stools, blood in stool, constipated, diarrhea, difficulty swallowing, nausea, poor appetite, poor fluid intake, rectal bleeding , vomiting, other Genitourinary: Denies: no symptoms, burning, discharge, frequency, flank pain, hematuria, incontinence, pain, urgency, other Neurologic/Psychiatric: Denies: no symptoms, anxiety, depressed, emotional problems, headache, numbness, paresthesia, pre-existing deficit, seizure, tingling, tremors, weakness, other Endocrine: Denies: no symptoms, excessive sweating, flushing, intolerance to cold, intolerance to heat, increased hunger, increased thirst, increased urine, unexplained weight gain, unexplained weight loss, other Hematologic/Lymphatic: Denies: no symptoms, anemia, easy bleeding, easy bruising, other Allergies: Coded Allergies: LISINOPRIL (Verified Allergy, Unknown, 07/16/18) LOSARTAN (Verified Allergy, Unknown, 07/16/18) Subjective no fevers, no chills, no night sweats Objective Last 24 Hour Vital Signs Date Time Temp Pulse Resp B/P (MAP) Pulse Ox O2 Delivery O2 Flow Rate FiO2 07/30/18 16:30 159/75 07/30/18 16:17 98.4 07/30/18 16:00 98.4 70 18 161/72 (101) 95 07/30/18 15:47 161/72 07/30/18 14:52 97.9 07/30/18 12:01 97.9 73 18 162/68 (99) 95 07/30/18 08:57 71 148/78 07/30/18 08:56 148/78 07/30/18 08:55 71 148/78 07/30/18 08:22 75 20 99 Room Air 07/30/18 08:11 Nasal Cannula 3.0 Room Air 07/30/18 08:11 94 Room Air 21 07/30/18 08:11 Room Air 21 07/30/18 08:08 69 18 94 Room Air 21 07/30/18 08:08 69 18 Room Air 21 07/30/18 08:00 99.1 71 18 148/78 (101) 99 07/30/18 06:17 171/75 07/30/18 06:00 65 171/75 (107) 07/30/18 03:15 172/78 07/30/18 03:13 97.1 62 18 172/78 (109) 99 07/29/18 23:10 98.3 63 20 116/78 (91) 96 07/29/18 23:07 63 116/78 07/29/18 20:54 169/75 07/29/18 20:54 Nasal Cannula 3.0 Nasal Cannula 3.0 07/29/18 20:18 98.2 66 18 169/75 (106) 96 Intake and Output 07/29/18 07/30/18 19:00 07:00 Intake Total 1000 ml 240 ml Balance 1000 ml 240 ml Intake Oral 1000 ml 240 ml # Voids 2 Laboratory Tests 07/29/18 21:42: Urine Color Pale yellow, Urine Appearance Clear, Urine pH 6.5, Urine Specific [place] 1.010, Urine Protein 4+H, Urine Glucose (UA) 2+H, Urine Ketones Negative , Urine Blood 3+H, Urine Nitrite Negative, Urine Bilirubin Negative, Urine Urobilinogen Normal, Urine Leukocyte Esterase Negative, Urine RBC 2-4H, Urine WBC 0-2, Urine Squamous Epithelial Cells Few, Urine Bacteria Few 07/30/18 04:50: White Blood Count 4.5L, Red Blood Count 2.64L, Hemoglobin 8.6L, Hematocrit 26.0L , Mean Corpuscular Volume 99, Mean Corpuscular Hemoglobin 32.5H, Mean Corpuscular Hemoglobin Concent 33.0, Red Cell Distribution Width 11.9, Platelet Count 178, Mean Platelet Volume 7.2, Neutrophils (%) (Auto) 62.1, Lymphocytes (% ) (Auto) 27.5, Monocytes (%) (Auto) 5.8, Eosinophils (%) (Auto) 3.6H, Basophils (%) (Auto) 1.0, Sodium Level 140, Potassium Level 4.3, Chloride Level 109H, Carbon Dioxide Level 23, Anion Gap 9, Blood Urea Nitrogen 40H, Creatinine 2.2H, Estimat Glomerular Filtration Rate 28.1, Glucose Level 195H, Hemoglobin A1c 5.2 , Uric Acid 6.5, Calcium Level 8.4L, Phosphorus Level 3.6, Magnesium Level 2.3, Iron Level 51, Total Iron Binding Capacity 181L, Percent Iron Saturation 28, Unsaturated Iron Binding 130, Ferritin 222, Total Bilirubin 0.3, Gamma Glutamyl Transpeptidase 72, Aspartate Amino Transf (AST/SGOT) 16, Alanine Aminotransferase (ALT/SGPT) 28, Alkaline Phosphatase 87, Total Creatine Kinase 201, Pro-B-Type Natriuretic Peptide 05156Z, Total Protein 6.0L, Albumin 2.5L, Globulin 3.5, Albumin/Globulin Ratio 0.7L, Triglycerides Level 142, Cholesterol Level 102, LDL Cholesterol 54, HDL Cholesterol 41, Cholesterol/HDL Ratio 2.5L, Vitamin B12 Level 869, Folate 9.0, Thyroid Stimulating Hormone (TSH) 0.758, Random Vancomycin Level 14.4 Height (Feet): 5 Height (Inches): 2.00 Weight (Pounds): 158 General Appearance: lethargic EENT: TMs normal Neck: supple Cardiovascular: regular rhythm Abdomen: no mass Extremities: non-tender Edema: trace edema Neurologic: alert Skin: warm/dry Amandeep Howell MD Jul 30, 2018 20:02
[2018-07-30] MEDS: TraZODone 50mg tab ORAL SCH (20:37)
[2018-07-31 00:14] VITALS: BP 147/65
[2018-07-31] MEDS: HydrALAZINE 50mg tab ORAL SCH ×2 (00:32→08:05)
[2018-07-31] MEDS: Morphine Sulfate 2mg/ml Inj IVP PRN ×5 (03:06→22:50)
[2018-07-31 04:38] VITALS: BP 162/78
--- NOTE | 2018-07-31 05:00 | NUR ---
NURSE NOTES: Patient in bed, asleep, no distress.
--- NOTE | 2018-07-31 07:20 | NUR ---
HAND-OFF: Report given to ADRIANNA Silva RN.
--- NOTE | 2018-07-31 07:25 | NUR ---
NURSE NOTES: AWAKE/ALERT. PAIN SCALE 7/10. NO SOB. IN NO ACUTE DISTRESS.
[2018-07-31 07:27] LABS: BASOPHILS % (AUTO) 0.7 % (0.0-2.0); HEMATOCRIT 25.2 % (37.0-47.0); HEMOGLOBIN 8.2 G/DL (12.0-16.0); LYMPHOCYTES % (AUTO) 20.9 % (20.0-45.0); MEAN CORPUSCULAR VOLUME 100 FL (80-99); MONOCYTES % (AUTO) 5.6 % (1.0-10.0); NEUTROPHILS % (AUTO) 69.9 % (45.0-75.0); PLATELET COUNT 179 K/UL (150-450); RED BLOOD COUNT 2.52 M/UL (4.20-5.40); RED CELL DISTRIBUTION WIDTH 11.5 % (11.6-14.8); WHITE BLOOD COUNT 5.2 K/UL (4.8-10.8)
[2018-07-31 07:36] LABS: ANION GAP 10 mmol/L (5-15); BLOOD UREA NITROGEN 42 mg/dL (7-18); CALCIUM 8.2 MG/DL (8.5-10.1); CARBON DIOXIDE 22 MMOL/L (21-32); CHLORIDE 110 MMOL/L (98-107); CREATININE 2.4 MG/DL (0.55-1.30); POTASSIUM 4.5 MMOL/L (3.5-5.1); SODIUM 142 MMOL/L (136-145)
[2018-07-31 07:59] VITALS: BP 170/74
[2018-07-31] MEDS: Minoxidil 2.5mg tab ORAL PRN (08:05)
--- NOTE | 2018-07-31 08:32 | General Progress Note ---
Assessment/Plan Problem List: (1) Acute respiratory failure ICD Codes: J96.00 - Acute respiratory failure, unspecified whether with hypoxia or hypercapnia SNOMED: 51253276 (2) Pleural effusion ICD Codes: J90 - Pleural effusion, not elsewhere classified SNOMED: 55738775 (3) Hypertension ICD Codes: I10 - Essential (primary) hypertension SNOMED: 11190595 (4) Diabetes mellitus ICD Codes: E11.9 - Type 2 diabetes mellitus without complications SNOMED: 46738864 (5) ATN (acute tubular necrosis) ICD Codes: N17.0 - Acute kidney failure with tubular necrosis SNOMED: 73339696 (6) Abdominal pain ICD Codes: R10.9 - Unspecified abdominal pain SNOMED: 09086812 Status: stable, progressing Assessment/Plan o2 pulm tx pt diet eval bp bs control cbc bmp am dc to snf if all clear Subjective Constitutional: Reports: weakness Allergies: Coded Allergies: LISINOPRIL (Verified Allergy, Unknown, 07/16/18) LOSARTAN (Verified Allergy, Unknown, 07/16/18) All Systems: reviewed and negative except above Subjective o2nc tired in bed Objective Last 24 Hour Vital Signs Date Time Temp Pulse Resp B/P (MAP) Pulse Ox O2 Delivery O2 Flow Rate FiO2 07/31/18 08:15 Nasal Cannula 3.0 Nasal Cannula 3.0 07/31/18 08:05 170/74 07/31/18 08:05 170/74 07/31/18 07:59 98.1 72 18 170/74 (106) 100 07/31/18 07:17 98.4 07/31/18 04:38 98.4 70 18 162/78 (106) 95 07/31/18 03:36 98.2 07/31/18 00:32 147/65 07/31/18 00:14 98.2 66 18 147/65 (92) 96 07/30/18 20:37 64 155/77 07/30/18 20:30 Nasal Cannula 3.0 Nasal Cannula 3.0 07/30/18 20:08 Room Air 21 07/30/18 20:08 95 Room Air 21 07/30/18 20:08 68 18 Room Air 21 07/30/18 20:00 98.7 64 18 155/77 (103) 99 07/30/18 16:30 159/75 07/30/18 16:00 98.4 70 18 161/72 (101) 95 07/30/18 15:47 161/72 07/30/18 12:01 97.9 73 18 162/68 (99) 95 07/30/18 08:57 71 148/78 07/30/18 08:56 148/78 07/30/18 08:55 71 148/78 Intake and Output 07/30/18 07/31/18 19:00 07:00 Intake Total 415 ml 400 ml Output Total 600 ml Balance -185 ml 400 ml Intake Oral 360 ml 400 ml IV Total 55 ml Output Urine Total 600 ml # Voids 1 Laboratory Tests 07/31/18 05:15: White Blood Count 5.2, Red Blood Count 2.52L, Hemoglobin 8.2L, Hematocrit 25.2L , Mean Corpuscular Volume 100H, Mean Corpuscular Hemoglobin 32.5H, Mean Corpuscular Hemoglobin Concent 32.6, Red Cell Distribution Width 11.5L, Platelet Count 179, Mean Platelet Volume 8.0, Neutrophils (%) (Auto) 69.9, Lymphocytes (%) (Auto) 20.9, Monocytes (%) (Auto) 5.6, Eosinophils (%) (Auto) 3.0, Basophils (%) (Auto) 0.7, Sodium Level 142, Potassium Level 4.5, Chloride Level 110H, Carbon Dioxide Level 22, Anion Gap 10, Blood Urea Nitrogen 42H, Creatinine 2.4H, Estimat Glomerular Filtration Rate 25.3, Glucose Level 214H, Calcium Level 8.2L Height (Feet): 5 Height (Inches): 2.00 Weight (Pounds): 158 General Appearance: lethargic EENT: normal ENT inspection Neck: normal alignment Cardiovascular: normal peripheral pulses, normal rate, regular rhythm Respiratory/Chest: chest wall non-tender, lungs clear, normal breath sounds Abdomen: normal bowel sounds, non tender, soft Extremities: normal inspection Edema: no edema noted Arm (L), no edema noted Arm (R), no edema noted Leg (L), no edema noted Leg (R), no edema noted Pedal (L), no edema noted Pedal (R), no edema noted Generalized Neurologic: motor weakness Skin: normal pigmentation, warm/dry Naun Geiger DO Jul 31, 2018 08:32
[2018-07-31] MEDS: Cefepime HCl 1 GM in D5W 55 ML IVPB SCH (08:44)
[2018-07-31] MEDS: Docusate 100mg cap ORAL SCH ×3 (08:46→17:31)
[2018-07-31] MEDS: Carvedilol 12.5mg tab ORAL SCH ×2 (08:48→20:06)
--- NOTE | 2018-07-31 08:49 | General Progress Note ---
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 D/w Dr. Hagen and he concurred. Subjective Date patient seen: Jul 31, 2018 Time patient seen: 07:15 - am Allergies: Coded Allergies: LISINOPRIL (Verified Allergy, Unknown, 07/16/18) LOSARTAN (Verified Allergy, Unknown, 07/16/18) Subjective REVIEW OF SYSTEMS: Denies rash, fever, chills, sweating, dizziness, drowsiness, blurred vision, sore throat, change in her weight. No shortness of breath at this time. No chest pain, palpitations, or cough. No nausea, vomiting, diarrhea, or blood in the stool or urine. No bowel or bladder incontinence. She is complaining of generalized body pain. SUBJECTIVE: Patient showing no signs of pain or distress. Has tolerated the pain on the Morphine and Percocet. She has no new complaints at this time Objective Last 24 Hour Vital Signs Date Time Temp Pulse Resp B/P (MAP) Pulse Ox O2 Delivery O2 Flow Rate FiO2 07/31/18 08:15 Nasal Cannula 3.0 Nasal Cannula 3.0 07/31/18 08:05 170/74 07/31/18 08:05 170/74 07/31/18 07:59 98.1 72 18 170/74 (106) 100 07/31/18 07:17 98.4 07/31/18 04:38 98.4 70 18 162/78 (106) 95 07/31/18 03:36 98.2 07/31/18 00:32 147/65 07/31/18 00:14 98.2 66 18 147/65 (92) 96 07/30/18 20:37 64 155/77 07/30/18 20:30 Nasal Cannula 3.0 Nasal Cannula 3.0 07/30/18 20:08 Room Air 21 07/30/18 20:08 95 Room Air 21 07/30/18 20:08 68 18 Room Air 21 07/30/18 20:00 98.7 64 18 155/77 (103) 99 07/30/18 16:30 159/75 07/30/18 16:00 98.4 70 18 161/72 (101) 95 07/30/18 15:47 161/72 07/30/18 12:01 97.9 73 18 162/68 (99) 95 07/30/18 08:57 71 148/78 07/30/18 08:56 148/78 07/30/18 08:55 71 148/78 Intake and Output 07/30/18 07/31/18 19:00 07:00 Intake Total 415 ml 400 ml Output Total 600 ml Balance -185 ml 400 ml Intake Oral 360 ml 400 ml IV Total 55 ml Output Urine Total 600 ml # Voids 1 Laboratory Tests 07/31/18 05:15: White Blood Count 5.2, Red Blood Count 2.52L, Hemoglobin 8.2L, Hematocrit 25.2L , Mean Corpuscular Volume 100H, Mean Corpuscular Hemoglobin 32.5H, Mean Corpuscular Hemoglobin Concent 32.6, Red Cell Distribution Width 11.5L, Platelet Count 179, Mean Platelet Volume 8.0, Neutrophils (%) (Auto) 69.9, Lymphocytes (%) (Auto) 20.9, Monocytes (%) (Auto) 5.6, Eosinophils (%) (Auto) 3.0, Basophils (%) (Auto) 0.7, Sodium Level 142, Potassium Level 4.5, Chloride Level 110H, Carbon Dioxide Level 22, Anion Gap 10, Blood Urea Nitrogen 42H, Creatinine 2.4H, Estimat Glomerular Filtration Rate 25.3, Glucose Level 214H, Calcium Level 8.2L Height (Feet): 5 Height (Inches): 2.00 Weight (Pounds): 158 Objective GENERAL: Alert, awake, and oriented. LUNGS: Decreased breath sounds bilaterally. HEART: S1 and S2 regular. ABDOMEN: Benign. EXTREMITIES: No cyanosis. No clubbing. NEURO: No changes. Kwabena Verduzco Jul 31, 2018 08:49
[2018-07-31] MEDS: Heparin 5000 units/ml inj SUBQ SCH ×2 (08:53→20:12)
[2018-07-31] MEDS: Lactulose 10gm/15ml UDC ORAL SCH ×3 (08:54→17:31)
--- NOTE | 2018-07-31 10:28 | General Progress Note ---
Assessment/Plan Problem List: (1) Pleural effusion ICD Codes: J90 - Pleural effusion, not elsewhere classified SNOMED: 99303284 (2) Anemia ICD Codes: D64.9 - Anemia, unspecified SNOMED: 847109612 (3) Hypertension ICD Codes: I10 - Essential (primary) hypertension SNOMED: 27237641 (4) Diabetes mellitus ICD Codes: E11.9 - Type 2 diabetes mellitus without complications SNOMED: 33922865 (5) Abdominal pain ICD Codes: R10.9 - Unspecified abdominal pain SNOMED: 71224455 Assessment/Plan s/p thoracentesis Anemia workup reviewed from prior admission send for OB stool r/o GI bleed monitor H&H, prn transfusions bowel regime add colace and miralax ppi fu cardio/pulmonary recs fu labs Subjective ROS Limited/Unobtainable: Yes Allergies: Coded Allergies: LISINOPRIL (Verified Allergy, Unknown, 07/16/18) LOSARTAN (Verified Allergy, Unknown, 07/16/18) Subjective c/o SOB Objective Last 24 Hour Vital Signs Date Time Temp Pulse Resp B/P (MAP) Pulse Ox O2 Delivery O2 Flow Rate FiO2 07/31/18 08:48 72 170/74 07/31/18 08:48 72 170/74 07/31/18 08:15 Nasal Cannula 3.0 Nasal Cannula 3.0 07/31/18 08:05 170/74 07/31/18 08:05 170/74 07/31/18 07:59 98.1 72 18 170/74 (106) 100 07/31/18 07:17 98.4 07/31/18 04:38 98.4 70 18 162/78 (106) 95 07/31/18 03:36 98.2 07/31/18 00:32 147/65 07/31/18 00:14 98.2 66 18 147/65 (92) 96 07/30/18 20:37 64 155/77 07/30/18 20:30 Nasal Cannula 3.0 Nasal Cannula 3.0 07/30/18 20:08 Room Air 21 07/30/18 20:08 95 Room Air 21 07/30/18 20:08 68 18 Room Air 21 07/30/18 20:00 98.7 64 18 155/77 (103) 99 07/30/18 16:30 159/75 07/30/18 16:00 98.4 70 18 161/72 (101) 95 07/30/18 15:47 161/72 07/30/18 12:01 97.9 73 18 162/68 (99) 95 Intake and Output 07/30/18 07/31/18 18:59 06:59 Intake Total 415 ml 400 ml Output Total 600 ml Balance -185 ml 400 ml Intake Oral 360 ml 400 ml IV Total 55 ml Output Urine Total 600 ml # Voids 1 Laboratory Tests 07/31/18 05:15: White Blood Count 5.2, Red Blood Count 2.52L, Hemoglobin 8.2L, Hematocrit 25.2L , Mean Corpuscular Volume 100H, Mean Corpuscular Hemoglobin 32.5H, Mean Corpuscular Hemoglobin Concent 32.6, Red Cell Distribution Width 11.5L, Platelet Count 179, Mean Platelet Volume 8.0, Neutrophils (%) (Auto) 69.9, Lymphocytes (%) (Auto) 20.9, Monocytes (%) (Auto) 5.6, Eosinophils (%) (Auto) 3.0, Basophils (%) (Auto) 0.7, Sodium Level 142, Potassium Level 4.5, Chloride Level 110H, Carbon Dioxide Level 22, Anion Gap 10, Blood Urea Nitrogen 42H, Creatinine 2.4H, Estimat Glomerular Filtration Rate 25.3, Glucose Level 214H, Calcium Level 8.2L Height (Feet): 5 Height (Inches): 2.00 Weight (Pounds): 158 General Appearance: alert EENT: normal ENT inspection Neck: supple Cardiovascular: normal rate Respiratory/Chest: decreased breath sounds Abdomen: normal bowel sounds, non tender, soft Extremities: non-tender Marco Antonio Yarbrough MD Jul 31, 2018 10:28
--- NOTE | 2018-07-31 11:59 | Infectious Diseases Prog Note ---
Assessment/Plan Assessment/Plan Abx: IV Vancomycin 07/25- Cefepime 07/25- Assessment SOB, worsened- ?worsening edema vs infection(pNA) -07/26 CXR: Improved but still extensive bilateral interstitial and airspace edema versus infiltrates Suspect increasing left pleural effusion -07/25 CXR: Cardiomegaly. Bilateral extensive infiltrates versus edema and bilateral pleural effusions -sp cx p -neg: Legionella ag urine, CrAg serum Gram positive bacteremic, -likely contamiannant -07/25 Bcx 3/4 CONS; 07/25 NTD, NTD -2d echo: no vegetatioms Moderate b/l pleural effusions -07/26 SP R thoracentesis: wbc 240, LDH 61, pH 8- transudate; cx p Afebrile No leukocytosis Recent Probable PNA, s/p Rx -07/19 CT chest: : Marked cardiomegaly. Bilateral pleural effusions. Pulmonary interstitial septal thickening, diffuse faint groundglass opacity, scattered slightly denser parenchymal opacities bilaterally. Findings most likely represent pulmonary edema. However, inflammatory etiologies are also possible. Mediastinal, possible bilateral hilar, possible left axillary lymphadenopathy. This is nonspecific, could indicate inflammatory process, lymphoproliferative disorder, metastatic lymphadenopathy among other possibilities. Splenomegaly. Suspect related to the above. Hepatomegaly -CXR: Reduced lung volumes with bibasilar infiltrates. -influenza sc neg -Bcx neg Recent Acute CHF exacerbation MICHELLE, imporved asthma HTN DM CVA w/ L side weakness [facility] resident Plan: -Continue empiric IV Vancomycin and Cefepime #7/ pending sputum culture and pleural fluid culture -low threshold to add PO Fluconazole if no improvement. -07/20 SP Levaquin #5 -07/15 SP Unasyn x1 -f/u repaet Bcx x2 -f/u pleural fluid cx -f/u sp cx (fungal, bacterial), Cocci, fungitell -Monitor CBC/C MP, temperatures -Aspiration precautions -Cards, Renal f/u -CXR 2v am Thank you for this consultation. Will continue to follow along with you. Subjective Allergies: Coded Allergies: LISINOPRIL (Verified Allergy, Unknown, 07/16/18) LOSARTAN (Verified Allergy, Unknown, 07/16/18) Subjective afebrile repaet Bcx NTD at RA Objective Vital Signs Last 24 Hour Vital Signs Date Time Temp Pulse Resp B/P (MAP) Pulse Ox O2 Delivery O2 Flow Rate FiO2 07/31/18 10:49 98.1 07/31/18 08:48 72 170/74 07/31/18 08:48 72 170/74 07/31/18 08:15 Nasal Cannula 3.0 Nasal Cannula 3.0 07/31/18 08:05 170/74 07/31/18 08:05 170/74 07/31/18 07:59 98.1 72 18 170/74 (106) 100 07/31/18 07:17 98.4 07/31/18 04:38 98.4 70 18 162/78 (106) 95 07/31/18 00:32 147/65 07/31/18 00:14 98.2 66 18 147/65 (92) 96 07/30/18 20:37 64 155/77 07/30/18 20:30 Nasal Cannula 3.0 Nasal Cannula 3.0 07/30/18 20:08 Room Air 21 07/30/18 20:08 95 Room Air 21 07/30/18 20:08 68 18 Room Air 21 07/30/18 20:00 98.7 64 18 155/77 (103) 99 07/30/18 16:30 159/75 07/30/18 16:00 98.4 70 18 161/72 (101) 95 07/30/18 15:47 161/72 07/30/18 12:01 97.9 73 18 162/68 (99) 95 Height (Feet): 5 Height (Inches): 2.00 Weight (Pounds): 158 Objective GENERAL: Calm in bed, oriented x3, slightly distress secondary to short of breath. CARDIOVASCULAR: No murmur. LUNGS: Poor exchange. ABDOMEN: Bowel sounds distant. EXTREMITIES: No cyanosis, clubbing, or edema. NEUROLOGIC: The patient moves all extremities, slightly weak Laboratory Tests Test 07/31/18 05:15 White Blood Count 5.2 K/UL (4.8-10.8) Red Blood Count 2.52 M/UL (4.20-5.40) L Hemoglobin 8.2 G/DL (12.0-16.0) L Hematocrit 25.2 % (37.0-47.0) L Mean Corpuscular Volume 100 FL (80-99) H Mean Corpuscular Hemoglobin 32.5 PG (27.0-31.0) H Mean Corpuscular Hemoglobin Concent 32.6 G/DL (32.0-36.0) Red Cell Distribution Width 11.5 % (11.6-14.8) L Platelet Count 179 K/UL (150-450) Mean Platelet Volume 8.0 FL (6.5-10.1) Neutrophils (%) (Auto) 69.9 % (45.0-75.0) Lymphocytes (%) (Auto) 20.9 % (20.0-45.0) Monocytes (%) (Auto) 5.6 % (1.0-10.0) Eosinophils (%) (Auto) 3.0 % (0.0-3.0) Basophils (%) (Auto) 0.7 % (0.0-2.0) Sodium Level 142 MMOL/L (136-145) Potassium Level 4.5 MMOL/L (3.5-5.1) Chloride Level 110 MMOL/L (98-107) H Carbon Dioxide Level 22 MMOL/L (21-32) Anion Gap 10 mmol/L (5-15) Blood Urea Nitrogen 42 mg/dL (7-18) H Creatinine 2.4 MG/DL (0.55-1.30) H Estimat Glomerular Filtration Rate 25.3 mL/min (>60) Glucose Level 214 MG/DL (74-106) H Calcium Level 8.2 MG/DL (8.5-10.1) L Current Medications Medications (Trade) Dose Ordered Sig/Zara Route PRN Reason Start Time Stop Time Status Last Admin Dose Admin Acetaminophen (Tylenol) 650 mg Q4H PRN ORAL fever (temp>100.5F) 07/27/18 07:15 08/24/18 07:14 Albuterol/ Ipratropium (Albuterol/ Ipratropium) 3 ml Q4H PRN HHN Shortness of Breath 07/27/18 07:15 08/01/18 07:14 07/30/18 08:08 Amlodipine Besylate (Norvasc) 10 mg DAILY ORAL 07/27/18 09:00 08/24/18 08:59 07/31/18 08:48 Atorvastatin Calcium (Lipitor) 10 mg BEDTIME ORAL 07/29/18 21:00 08/24/18 20:59 07/30/18 20:36 Carvedilol (Coreg) 37.5 mg EVERY 12 HOURS ORAL 07/27/18 09:00 08/24/18 08:59 07/31/18 08:48 Cefepime HCl 1 gm/ Dextrose 55 ml @ 110 mls/hr Q24H IVPB 07/27/18 09:00 08/02/18 08:59 07/31/18 08:44 Clopidogrel Bisulfate (Plavix) 75 mg DAILY ORAL 07/27/18 09:00 08/24/18 08:59 07/31/18 08:48 Docusate Sodium (Colace) 100 mg TID ORAL 07/29/18 18:00 08/28/18 08:59 07/31/18 08:46 Gabapentin (Neurontin) 300 mg EVERY 12 HOURS ORAL 07/31/18 21:00 08/26/18 08:59 Heparin Sodium (Porcine) (Heparin 5000 units/ml) 5,000 units EVERY 12 HOURS SUBQ 07/27/18 09:00 08/24/18 08:59 07/31/18 08:53 Hydralazine HCl (Apresoline) 50 mg Q8H ORAL 07/30/18 16:30 08/28/18 20:29 07/31/18 08:05 Lactulose (Cephulac) 10 gm THREE TIMES A DAY ORAL 07/30/18 09:00 08/29/18 08:59 07/31/18 08:54 Lorazepam (Ativan) 0.5 mg DAILYPRN PRN ORAL For Anxiety 07/27/18 09:00 08/03/18 08:59 Minoxidil (Loniten) 2.5 mg Q4H PRN ORAL bp over 165 syst 07/29/18 14:30 08/28/18 14:29 07/31/18 08:05 Mirtazapine (Remeron) 7.5 mg BEDTIME ORAL 07/27/18 21:00 08/24/18 20:59 07/30/18 20:36 Morphine Sulfate (Morphine Sulfate) 4 mg Q4H PRN IVP Severe Pain (Pain Scale 7-10) 07/27/18 12:16 08/01/18 12:15 07/31/18 10:19 Ondansetron HCl (Zofran) 4 mg Q6H PRN IVP Nausea & Vomiting 07/27/18 07:15 08/24/18 07:14 Oxycodone/ Acetaminophen (Percocet 10) 1 tab Q6H PRN ORAL Moderate Pain (Pain Scale 4-6) 07/27/18 07:30 08/01/18 07:29 07/31/18 06:47 Pantoprazole (Protonix) 40 mg DAILY ORAL 07/29/18 14:30 08/28/18 14:29 07/31/18 08:49 Polyethylene Glycol (Miralax) 17 gm DAILYPRN PRN ORAL Constipation 07/27/18 07:15 08/24/18 07:14 Temazepam (Restoril) 15 mg HSPRN PRN ORAL Insomnia 07/27/18 07:15 08/01/18 07:14 Trazodone HCl (Desyrel) 50 mg BEDTIME ORAL 07/27/18 21:00 08/24/18 20:59 07/30/18 20:37 Vancomycin HCl (Vanco rx to dose) 1 ea DAILY PRN MISC . 07/27/18 09:00 08/24/18 07:59 Vancomycin HCl 1 gm/Dextrose 275 ml @ 183.333 mls/hr ONCE IVPB 07/31/18 12:30 07/31/18 13:30 Juliane Mcdonald M.D. Jul 31, 2018 11:59
--- NOTE | 2018-07-31 11:59 | Nephrology Progress Note ---
Assessment/Plan Problem List: (1) Acute on chronic renal failure (2) Solitary kidney (3) Diabetes mellitus (4) Hypertension (5) Diabetic neuropathy (6) Anemia Assessment 1. MICHELLE 2.CKD Absent left kidney 3.HTN ? DM 4.CHF - normal Ej Fx 5.hypocalcemia 6. Anemia of CKD 7. CVA lt weak Plan adjust BP meds- One liter IV starlix Anemia beckman monitoring renal function avoid NSAID Replace electrolyte as need it per orders Subjective ROS Limited/Unobtainable: No Constitutional: Reports: malaise Objective Objective Last 24 Hour Vital Signs Date Time Temp Pulse Resp B/P (MAP) Pulse Ox O2 Delivery O2 Flow Rate FiO2 07/31/18 10:49 98.1 07/31/18 08:48 72 170/74 07/31/18 08:48 72 170/74 07/31/18 08:15 Nasal Cannula 3.0 Nasal Cannula 3.0 07/31/18 08:05 170/74 07/31/18 08:05 170/74 07/31/18 07:59 98.1 72 18 170/74 (106) 100 07/31/18 07:17 98.4 07/31/18 04:38 98.4 70 18 162/78 (106) 95 07/31/18 00:32 147/65 07/31/18 00:14 98.2 66 18 147/65 (92) 96 07/30/18 20:37 64 155/77 07/30/18 20:30 Nasal Cannula 3.0 Nasal Cannula 3.0 07/30/18 20:08 Room Air 21 07/30/18 20:08 95 Room Air 21 07/30/18 20:08 68 18 Room Air 21 07/30/18 20:00 98.7 64 18 155/77 (103) 99 07/30/18 16:30 159/75 07/30/18 16:00 98.4 70 18 161/72 (101) 95 07/30/18 15:47 161/72 07/30/18 12:01 97.9 73 18 162/68 (99) 95 Intake and Output 07/30/18 07/31/18 18:59 06:59 Intake Total 415 ml 400 ml Output Total 600 ml Balance -185 ml 400 ml Intake Oral 360 ml 400 ml IV Total 55 ml Output Urine Total 600 ml # Voids 1 Laboratory Tests 07/31/18 05:15: White Blood Count 5.2, Red Blood Count 2.52L, Hemoglobin 8.2L, Hematocrit 25.2L , Mean Corpuscular Volume 100H, Mean Corpuscular Hemoglobin 32.5H, Mean Corpuscular Hemoglobin Concent 32.6, Red Cell Distribution Width 11.5L, Platelet Count 179, Mean Platelet Volume 8.0, Neutrophils (%) (Auto) 69.9, Lymphocytes (%) (Auto) 20.9, Monocytes (%) (Auto) 5.6, Eosinophils (%) (Auto) 3.0, Basophils (%) (Auto) 0.7, Sodium Level 142, Potassium Level 4.5, Chloride Level 110H, Carbon Dioxide Level 22, Anion Gap 10, Blood Urea Nitrogen 42H, Creatinine 2.4H, Estimat Glomerular Filtration Rate 25.3, Glucose Level 214H, Calcium Level 8.2L Height (Feet): 5 Height (Inches): 2.00 Weight (Pounds): 158 General Appearance: no apparent distress Objective no change Abdullahi Newby MD Jul 31, 2018 11:59
[2018-07-31 12:00] VITALS: BP 148/64
--- NOTE | 2018-07-31 12:01 | NUR ---
P.T Note: Spoke with RN today. Per RN, pt preferred to go home with daughter who will be her caregiver VS SNF for rehab. Recommend Home P.T for continued therapy, bedside commode and W/C if pt being D/C'd to home. Addendum: 07/31/18 at 1209 by SAGRARIO LOCKWOOD PT Amended: Links added.
[2018-07-31] MEDS ORDERED: Vancomycin 1 GM in D5W 275 ML IVPB SCH (12:30)
--- NOTE | 2018-07-31 12:56 | General Progress Note ---
Assessment/Plan Assessment/Plan ASSESSMENT/RECS: #. Anemia of chronic disease -- patient with ongoing kidney damage, cr is elevatd appeox 2-2.5 baseline --> anemia panel has been reviewed and tsh, ferritin, tibc, esr, b12, folate, fibrinogen, iron % reviewed --> appreciate nephrology consult --> continue on epogen --> transfuse if hgb is <7 --> hemolysis w/u has been reviewed # Leukopenia wbc in the 4-6 range --> hepatitis panel negative, hiv neg --> us abd ordered # Acute versus chronic renal failure. as per renal etiology of acute renal failure is cardiorenal syndrome, prerenal azotemia versus unstable --> bp to improve on current meds --> nephro recs appreciated #. Coagulopathy with elevated inr --> recheck in future prn, now improved #. Congestive heart failure, but at this point the patient seems to be euvolemic. --> per cardiology #. 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 #. Uncontrolled hypertension. --> now better #. Pleural eff s/p thora Greatly appreciate consultation Subjective HEENT: Denies: no symptoms, eye pain, blurred vision, tearing, double vision, ear pain, ear discharge, nose pain, nose congestion, throat pain, throat swelling, mouth pain, mouth swelling, other Cardiovascular: Denies: no symptoms, chest pain, edema, irregular heart rate, lightheadedness, palpitations, syncope, other Respiratory: Denies: no symptoms, cough, orthopnea, shortness of breath, SOB with excertion, SOB at rest, sputum, stridor, wheezing, other Gastrointestinal/Abdominal: Denies: no symptoms, abdomen distended, abdominal pain, black stools, tarry stools, blood in stool, constipated, diarrhea, difficulty swallowing, nausea, poor appetite, poor fluid intake, rectal bleeding , vomiting, other Genitourinary: Denies: no symptoms, burning, discharge, frequency, flank pain, hematuria, incontinence, pain, urgency, other Neurologic/Psychiatric: Denies: no symptoms, anxiety, depressed, emotional problems, headache, numbness, paresthesia, pre-existing deficit, seizure, tingling, tremors, weakness, other Endocrine: Denies: no symptoms, excessive sweating, flushing, intolerance to cold, intolerance to heat, increased hunger, increased thirst, increased urine, unexplained weight gain, unexplained weight loss, other Hematologic/Lymphatic: Denies: no symptoms, anemia, easy bleeding, easy bruising, other Allergies: Coded Allergies: LISINOPRIL (Verified Allergy, Unknown, 07/16/18) LOSARTAN (Verified Allergy, Unknown, 07/16/18) Subjective no fevers, no chills, no night sweats Objective Last 24 Hour Vital Signs Date Time Temp Pulse Resp B/P (MAP) Pulse Ox O2 Delivery O2 Flow Rate FiO2 07/31/18 10:49 98.1 07/31/18 08:48 72 170/74 07/31/18 08:48 72 170/74 07/31/18 08:15 Nasal Cannula 3.0 Nasal Cannula 3.0 07/31/18 08:05 170/74 07/31/18 08:05 170/74 07/31/18 07:59 98.1 72 18 170/74 (106) 100 07/31/18 07:17 98.4 07/31/18 04:38 98.4 70 18 162/78 (106) 95 07/31/18 00:32 147/65 07/31/18 00:14 98.2 66 18 147/65 (92) 96 07/30/18 20:37 64 155/77 07/30/18 20:30 Nasal Cannula 3.0 Nasal Cannula 3.0 07/30/18 20:08 Room Air 21 07/30/18 20:08 95 Room Air 21 07/30/18 20:08 68 18 Room Air 21 07/30/18 20:00 98.7 64 18 155/77 (103) 99 07/30/18 16:30 159/75 07/30/18 16:00 98.4 70 18 161/72 (101) 95 07/30/18 15:47 161/72 Intake and Output 07/30/18 07/31/18 18:59 06:59 Intake Total 415 ml 400 ml Output Total 600 ml Balance -185 ml 400 ml Intake Oral 360 ml 400 ml IV Total 55 ml Output Urine Total 600 ml # Voids 1 Laboratory Tests 07/31/18 05:15: White Blood Count 5.2, Red Blood Count 2.52L, Hemoglobin 8.2L, Hematocrit 25.2L , Mean Corpuscular Volume 100H, Mean Corpuscular Hemoglobin 32.5H, Mean Corpuscular Hemoglobin Concent 32.6, Red Cell Distribution Width 11.5L, Platelet Count 179, Mean Platelet Volume 8.0, Neutrophils (%) (Auto) 69.9, Lymphocytes (%) (Auto) 20.9, Monocytes (%) (Auto) 5.6, Eosinophils (%) (Auto) 3.0, Basophils (%) (Auto) 0.7, Sodium Level 142, Potassium Level 4.5, Chloride Level 110H, Carbon Dioxide Level 22, Anion Gap 10, Blood Urea Nitrogen 42H, Creatinine 2.4H, Estimat Glomerular Filtration Rate 25.3, Glucose Level 214H, Calcium Level 8.2L Height (Feet): 5 Height (Inches): 2.00 Weight (Pounds): 158 General Appearance: alert EENT: normal ENT inspection Neck: supple Cardiovascular: normal rate Respiratory/Chest: no respiratory distress Abdomen: no mass Extremities: non-tender Edema: 1+ Leg (L), 1+ Leg (R) Edema: mild edema Neurologic: alert Skin: warm/dry Amandeep Howell MD Jul 31, 2018 12:56
--- NOTE | 2018-07-31 14:33 | NUR ---
CASE MANAGEMENT: REVIEW SI: SOB . PLEURAL EFFUSION T 98.1 HR 72 RR 16 BP 170/74 SAT 100% NC/3L H/H 8.2/25.2 BUN 42 CR 2.4 IS: CEFEPIME IV Q24HR COREG PO Q12HR PLAVIX PO QD MED/SURG STATUS DCP: PATIENT IS FROM HOME
[2018-07-31 16:00] VITALS: BP 152/69
[2018-07-31] MEDS ORDERED: HydrALAZINE 50mg tab ORAL SCH (16:00)
[2018-07-31] MEDS: Nateglinide 60mg tab ORAL SCH (16:49)
[2018-07-31] MEDS: HydrALAZINE 25mg tab ORAL SCH ×2 (16:49→21:41)
--- NOTE | 2018-07-31 18:54 | NUR ---
NURSE NOTES: quiet in bed. juast medicated for pain. in no distress.
--- NOTE | 2018-07-31 19:24 | NUR ---
HAND-OFF: Report given to Lizzy LUTZ RN.
[2018-07-31 20:00] VITALS: BP 155/79
[2018-07-31] MEDS: TraZODone 50mg tab ORAL SCH (20:05)
[2018-07-31] MEDS ORDERED: HydrALAZINE 25mg tab ORAL SCH (22:00)
--- NOTE | 2018-07-31 23:09 | NUR ---
NURSE NOTES: Alert and awake. PRN medication given for pain.. voided on bedside commode with assist. No acute distress noted. No IVF is running. IV patent. Informed pt NPO at midnight. Call light within reach. Will continue to monitor.
[2018-08-01] VITALS: BP 154/61
[2018-08-01 04:00] VITALS: BP 162/75
[2018-08-01] MEDS: HydrALAZINE 25mg tab ORAL SCH ×3 (05:44→21:47)
[2018-08-01] MEDS: Nateglinide 60mg tab ORAL SCH ×2 (05:44→12:23)
[2018-08-01] MEDS: Morphine Sulfate 2mg/ml Inj IVP PRN ×2 (05:47→10:16)
--- NOTE | 2018-08-01 07:29 | NUR ---
NURSE NOTES: Received pt from JENNIFER Tipton. pt was sleeping comfortably, no acute distress, pain, call light w/in reach.
[2018-08-01 07:38] LABS: BASOPHILS % (AUTO) 0.4 % (0.0-2.0); EOSINOPHILS % (AUTO) 3.2 % (0.0-3.0); HEMATOCRIT 25.1 % (37.0-47.0); LYMPHOCYTES % (AUTO) 21.1 % (20.0-45.0); MEAN CORPUSCULAR VOLUME 101 FL (80-99); MONOCYTES % (AUTO) 6.6 % (1.0-10.0); NEUTROPHILS % (AUTO) 68.7 % (45.0-75.0); PLATELET COUNT 164 K/UL (150-450); RED BLOOD COUNT 2.49 M/UL (4.20-5.40); RED CELL DISTRIBUTION WIDTH 12.3 % (11.6-14.8); WHITE BLOOD COUNT 4.8 K/UL (4.8-10.8)
--- NOTE | 2018-08-01 07:46 | NUR ---
HAND-OFF: Report given to Sathya RODRIGUEZ.
[2018-08-01 07:59] LABS: ALANINE AMINOTRANSFERASE 29 U/L (12-78); ALBUMIN 2.3 G/DL (3.4-5.0); ALBUMIN/GLOBULIN RATIO 0.6 (1.0-2.7); ALKALINE PHOSPHATASE 83 U/L (46-116); ANION GAP 8 mmol/L (5-15); ASPARTATE AMINO TRANSFERASE 18 U/L (15-37); BILIRUBIN,TOTAL 0.2 MG/DL (0.2-1.0); BLOOD UREA NITROGEN 41 mg/dL (7-18); CALCIUM 8.1 MG/DL (8.5-10.1); CARBON DIOXIDE 21 MMOL/L (21-32); CHLORIDE 109 MMOL/L (98-107); CREATININE 2.6 MG/DL (0.55-1.30); PHOSPHORUS 3.7 MG/DL (2.5-4.9); POTASSIUM 4.7 MMOL/L (3.5-5.1); SODIUM 138 MMOL/L (136-145)
[2018-08-01 08:00] VITALS: BP 145/64
[2018-08-01] MEDS: Lactulose 10gm/15ml UDC ORAL SCH ×3 (09:00→17:09)
[2018-08-01] MEDS: Heparin 5000 units/ml inj SUBQ SCH ×2 (09:00→20:36)
--- NOTE | 2018-08-01 09:00 | General Progress Note ---
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 D/w Dr. Hagen and he concurred. Subjective Date patient seen: Aug 01, 2018 Time patient seen: 07:00 - am Allergies: Coded Allergies: LISINOPRIL (Verified Allergy, Unknown, 07/16/18) LOSARTAN (Verified Allergy, Unknown, 07/16/18) Subjective REVIEW OF SYSTEMS: Denies rash, fever, chills, sweating, dizziness, drowsiness, blurred vision, sore throat, change in her weight. No shortness of breath at this time. No chest pain, palpitations, or cough. No nausea, vomiting, diarrhea, or blood in the stool or urine. No bowel or bladder incontinence. She is complaining of generalized body pain. SUBJECTIVE: Patient is in bed and pain has been tolerated on the Morphine and Percocet. She has no new complaints at this time. Objective Last 24 Hour Vital Signs Date Time Temp Pulse Resp B/P (MAP) Pulse Ox O2 Delivery O2 Flow Rate FiO2 08/01/18 08:00 98.1 68 18 145/64 (91) 96 08/01/18 07:53 65 16 Room Air 21 08/01/18 07:53 97 Room Air 21 08/01/18 07:53 Room Air 21 08/01/18 07:49 Nasal Cannula 3.0 Nasal Cannula 3.0 08/01/18 05:44 162/75 08/01/18 04:00 98.3 65 18 162/75 (104) 96 08/01/18 00:00 98.0 71 17 154/61 (92) 96 07/31/18 21:41 176/77 07/31/18 21:00 Nasal Cannula 3.0 Nasal Cannula 3.0 07/31/18 20:06 78 155/79 07/31/18 20:05 77 18 Room Air 21 07/31/18 20:05 97 Room Air 21 07/31/18 20:05 Room Air 21 07/31/18 20:00 98.1 78 18 155/79 (104) 100 07/31/18 19:13 98.3 07/31/18 16:49 153/69 07/31/18 16:00 98.3 70 18 152/69 (96) 100 07/31/18 12:00 98.1 69 16 148/64 (92) 100 Intake and Output 07/31/18 08/01/18 19:00 07:00 Intake Total 1724 ml Balance 1724 ml Intake Oral 944 ml IV Total 780 ml # Voids 3 2 # Bowel Movements 2 Laboratory Tests 08/01/18 07:15: White Blood Count 4.8, Red Blood Count 2.49L, Hemoglobin 8.0L, Hematocrit 25.1L , Mean Corpuscular Volume 101H, Mean Corpuscular Hemoglobin 32.3H, Mean Corpuscular Hemoglobin Concent 32.0, Red Cell Distribution Width 12.3, Platelet Count 164, Mean Platelet Volume 7.1, Neutrophils (%) (Auto) 68.7, Lymphocytes (% ) (Auto) 21.1, Monocytes (%) (Auto) 6.6, Eosinophils (%) (Auto) 3.2H, Basophils (%) (Auto) 0.4, Sodium Level 138, Potassium Level 4.7, Chloride Level 109H, Carbon Dioxide Level 21, Anion Gap 8, Blood Urea Nitrogen 41H, Creatinine 2.6H, Estimat Glomerular Filtration Rate 23.1, Glucose Level 228H, Calcium Level 8.1L , Phosphorus Level 3.7, Magnesium Level 2.1, Total Bilirubin 0.2, Aspartate Amino Transf (AST/SGOT) 18, Alanine Aminotransferase (ALT/SGPT) 29, Alkaline Phosphatase 83, Total Protein 6.2L, Albumin 2.3L, Globulin 3.9, Albumin/ Globulin Ratio 0.6L Height (Feet): 5 Height (Inches): 2.00 Weight (Pounds): 158 Objective GENERAL: Alert, awake, and oriented. LUNGS: Decreased breath sounds bilaterally. HEART: S1 and S2 regular. ABDOMEN: Benign. EXTREMITIES: No cyanosis. No clubbing. NEURO: No changes. Kwabena Verduzco Aug 01, 2018 09:00
[2018-08-01] MEDS: Docusate 100mg cap ORAL SCH ×3 (09:52→17:08)
[2018-08-01] MEDS: Carvedilol 12.5mg tab ORAL SCH ×2 (09:53→20:31)
[2018-08-01] MEDS: Cefepime HCl 1 GM in D5W 55 ML IVPB SCH (10:00)
--- NOTE | 2018-08-01 10:25 | Diagnostic Imaging Report ---
COMPARISON: Chest x-ray dated 07/29/18 FINDINGS: Single frontal view demonstrates a prominent cardiomediastinal silhouette. Continued demonstration of opacity in the right hemithorax. No pleural effusions. The visualized osseous structures are within normal limits. IMPRESSION: No significant change. Continued demonstration of opacity in the right hemithorax. Prominent cardiac size.
--- NOTE | 2018-08-01 10:42 | General Progress Note ---
Assessment/Plan Problem List: (1) Pleural effusion ICD Codes: J90 - Pleural effusion, not elsewhere classified SNOMED: 15417348 (2) Anemia ICD Codes: D64.9 - Anemia, unspecified SNOMED: 491934960 (3) Hypertension ICD Codes: I10 - Essential (primary) hypertension SNOMED: 04158885 (4) Diabetes mellitus ICD Codes: E11.9 - Type 2 diabetes mellitus without complications SNOMED: 36767991 (5) Abdominal pain ICD Codes: R10.9 - Unspecified abdominal pain SNOMED: 45110783 Assessment/Plan s/p thoracentesis Anemia workup reviewed from prior admission send for OB stool r/o GI bleed monitor H&H, prn transfusions bowel regime add colace and miralax ppi fu cardio/pulmonary recs fu labs Subjective ROS Limited/Unobtainable: Yes Allergies: Coded Allergies: LISINOPRIL (Verified Allergy, Unknown, 07/16/18) LOSARTAN (Verified Allergy, Unknown, 07/16/18) Subjective c/o SOB Objective Last 24 Hour Vital Signs Date Time Temp Pulse Resp B/P (MAP) Pulse Ox O2 Delivery O2 Flow Rate FiO2 08/01/18 09:54 68 145/64 08/01/18 09:53 68 145/64 08/01/18 08:00 98.1 68 18 145/64 (91) 96 08/01/18 07:53 65 16 Room Air 21 08/01/18 07:53 97 Room Air 21 08/01/18 07:53 Room Air 21 08/01/18 07:49 Nasal Cannula 3.0 Nasal Cannula 3.0 08/01/18 05:44 162/75 08/01/18 04:00 98.3 65 18 162/75 (104) 96 08/01/18 00:00 98.0 71 17 154/61 (92) 96 07/31/18 21:41 176/77 07/31/18 21:00 Nasal Cannula 3.0 Nasal Cannula 3.0 07/31/18 20:06 78 155/79 07/31/18 20:05 77 18 Room Air 21 07/31/18 20:05 97 Room Air 21 07/31/18 20:05 Room Air 21 07/31/18 20:00 98.1 78 18 155/79 (104) 100 07/31/18 19:13 98.3 07/31/18 16:49 153/69 07/31/18 16:00 98.3 70 18 152/69 (96) 100 07/31/18 12:00 98.1 69 16 148/64 (92) 100 Intake and Output 07/31/18 08/01/18 19:00 07:00 Intake Total 1724 ml Balance 1724 ml Intake Oral 944 ml IV Total 780 ml # Voids 3 2 # Bowel Movements 2 Laboratory Tests 08/01/18 07:15: White Blood Count 4.8, Red Blood Count 2.49L, Hemoglobin 8.0L, Hematocrit 25.1L , Mean Corpuscular Volume 101H, Mean Corpuscular Hemoglobin 32.3H, Mean Corpuscular Hemoglobin Concent 32.0, Red Cell Distribution Width 12.3, Platelet Count 164, Mean Platelet Volume 7.1, Neutrophils (%) (Auto) 68.7, Lymphocytes (% ) (Auto) 21.1, Monocytes (%) (Auto) 6.6, Eosinophils (%) (Auto) 3.2H, Basophils (%) (Auto) 0.4, Sodium Level 138, Potassium Level 4.7, Chloride Level 109H, Carbon Dioxide Level 21, Anion Gap 8, Blood Urea Nitrogen 41H, Creatinine 2.6H, Estimat Glomerular Filtration Rate 23.1, Glucose Level 228H, Calcium Level 8.1L , Phosphorus Level 3.7, Magnesium Level 2.1, Total Bilirubin 0.2, Aspartate Amino Transf (AST/SGOT) 18, Alanine Aminotransferase (ALT/SGPT) 29, Alkaline Phosphatase 83, Total Protein 6.2L, Albumin 2.3L, Globulin 3.9, Albumin/ Globulin Ratio 0.6L Height (Feet): 5 Height (Inches): 2.00 Weight (Pounds): 158 General Appearance: no apparent distress EENT: normal ENT inspection Neck: supple Cardiovascular: normal rate Respiratory/Chest: decreased breath sounds Abdomen: normal bowel sounds, non tender, soft Extremities: non-tender Marco Antonio Yarbrough MD Aug 01, 2018 10:42
[2018-08-01 12:00] VITALS: BP 142/56
--- NOTE | 2018-08-01 13:22 | Nephrology Progress Note ---
Assessment/Plan Problem List: (1) Acute on chronic renal failure (2) Solitary kidney (3) Diabetes mellitus (4) Hypertension (5) Diabetic neuropathy (6) Anemia Assessment 1. MICHELLE 2.CKD Absent left kidney 3.HTN ? DM 4.CHF - normal Ej Fx 5.hypocalcemia 6. Anemia of CKD 7. CVA lt weak Plan adjust BP meds- One liter IV starlix increase dose Anemia ebckman monitoring renal function avoid NSAID Replace electrolyte as need it per orders IV Venofer SQ EPO Subjective ROS Limited/Unobtainable: No Constitutional: Reports: malaise Objective Objective Last 24 Hour Vital Signs Date Time Temp Pulse Resp B/P (MAP) Pulse Ox O2 Delivery O2 Flow Rate FiO2 08/01/18 09:54 68 145/64 08/01/18 09:53 68 145/64 08/01/18 08:00 98.1 68 18 145/64 (91) 96 08/01/18 07:53 65 16 Room Air 21 08/01/18 07:53 97 Room Air 21 08/01/18 07:53 Room Air 21 08/01/18 07:49 Nasal Cannula 3.0 Nasal Cannula 3.0 08/01/18 05:44 162/75 08/01/18 04:00 98.3 65 18 162/75 (104) 96 08/01/18 00:00 98.0 71 17 154/61 (92) 96 07/31/18 21:41 176/77 07/31/18 21:00 Nasal Cannula 3.0 Nasal Cannula 3.0 07/31/18 20:06 78 155/79 07/31/18 20:05 77 18 Room Air 21 07/31/18 20:05 97 Room Air 21 07/31/18 20:05 Room Air 21 07/31/18 20:00 98.1 78 18 155/79 (104) 100 07/31/18 19:13 98.3 07/31/18 16:49 153/69 07/31/18 16:00 98.3 70 18 152/69 (96) 100 Intake and Output 07/31/18 08/01/18 19:00 07:00 Intake Total 1724 ml Balance 1724 ml Intake Oral 944 ml IV Total 780 ml # Voids 3 2 # Bowel Movements 2 Laboratory Tests 08/01/18 07:15: White Blood Count 4.8, Red Blood Count 2.49L, Hemoglobin 8.0L, Hematocrit 25.1L , Mean Corpuscular Volume 101H, Mean Corpuscular Hemoglobin 32.3H, Mean Corpuscular Hemoglobin Concent 32.0, Red Cell Distribution Width 12.3, Platelet Count 164, Mean Platelet Volume 7.1, Neutrophils (%) (Auto) 68.7, Lymphocytes (% ) (Auto) 21.1, Monocytes (%) (Auto) 6.6, Eosinophils (%) (Auto) 3.2H, Basophils (%) (Auto) 0.4, Sodium Level 138, Potassium Level 4.7, Chloride Level 109H, Carbon Dioxide Level 21, Anion Gap 8, Blood Urea Nitrogen 41H, Creatinine 2.6H, Estimat Glomerular Filtration Rate 23.1, Glucose Level 228H, Calcium Level 8.1L , Phosphorus Level 3.7, Magnesium Level 2.1, Total Bilirubin 0.2, Aspartate Amino Transf (AST/SGOT) 18, Alanine Aminotransferase (ALT/SGPT) 29, Alkaline Phosphatase 83, Total Protein 6.2L, Albumin 2.3L, Globulin 3.9, Albumin/ Globulin Ratio 0.6L Height (Feet): 5 Height (Inches): 2.00 Weight (Pounds): 158 General Appearance: no apparent distress Cardiovascular: normal rate Respiratory/Chest: decreased breath sounds Abdomen: soft Objective no change Abdullahi Newby MD Aug 01, 2018 13:22
[2018-08-01] MEDS ORDERED: Iron Sucrose 200 MG in NS 50 ML IV SCH (15:00)
--- NOTE | 2018-08-01 15:46 | General Progress Note ---
Assessment/Plan Assessment/Plan Covering for Dr. Ravi Geiger ASSESSMENT/RECS: #. Anemia of chronic disease -- patient with ongoing kidney damage, cr is elevatd appeox 2-2.5 baseline --> anemia panel has been reviewed and tsh, ferritin, tibc, esr, b12, folate, fibrinogen, iron % reviewed --> appreciate nephrology consult --> continue on epogen --> transfuse if hgb is <7 --> hemolysis w/u has been reviewed --> ON EPO SQ AND IRON IV # Leukopenia wbc in the 4-6 range --> hepatitis panel negative, hiv neg --> us abd ordered # Acute versus chronic renal failure. as per renal etiology of acute renal failure is cardiorenal syndrome, prerenal azotemia versus unstable --> bp to improve on current meds --> nephro recs appreciated #. Coagulopathy with elevated inr --> recheck in future prn, now improved #. Congestive heart failure, but at this point the patient seems to be euvolemic. --> per cardiology #. 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 #. Uncontrolled hypertension. --> now better #. Pleural eff s/p thora Greatly appreciate consultation Subjective Constitutional: Denies: no symptoms, chills, diaphoresis, fever, malaise, weakness, other HEENT: Denies: no symptoms, eye pain, blurred vision, tearing, double vision, ear pain, ear discharge, nose pain, nose congestion, throat pain, throat swelling, mouth pain, mouth swelling, other Cardiovascular: Denies: no symptoms, chest pain, edema, irregular heart rate, lightheadedness, palpitations, syncope, other Respiratory: Denies: no symptoms, cough, orthopnea, shortness of breath, SOB with excertion, SOB at rest, sputum, stridor, wheezing, other Gastrointestinal/Abdominal: Denies: no symptoms, abdomen distended, abdominal pain, black stools, tarry stools, blood in stool, constipated, diarrhea, difficulty swallowing, nausea, poor appetite, poor fluid intake, rectal bleeding , vomiting, other Genitourinary: Denies: no symptoms, burning, discharge, frequency, flank pain, hematuria, incontinence, pain, urgency, other Neurologic/Psychiatric: Denies: no symptoms, anxiety, depressed, emotional problems, headache, numbness, paresthesia, pre-existing deficit, seizure, tingling, tremors, weakness, other Endocrine: Denies: no symptoms, excessive sweating, flushing, intolerance to cold, intolerance to heat, increased hunger, increased thirst, increased urine, unexplained weight gain, unexplained weight loss, other Hematologic/Lymphatic: Denies: no symptoms, anemia, easy bleeding, easy bruising, other Allergies: Coded Allergies: LISINOPRIL (Verified Allergy, Unknown, 07/16/18) LOSARTAN (Verified Allergy, Unknown, 07/16/18) Subjective 08/01: no fevers, no chills, no night sweats, on epo and iron, feeling better, dc when all cleared Objective Last 24 Hour Vital Signs Date Time Temp Pulse Resp B/P (MAP) Pulse Ox O2 Delivery O2 Flow Rate FiO2 08/01/18 14:32 142/68 08/01/18 12:00 98.6 70 18 142/56 (84) 08/01/18 09:54 68 145/64 08/01/18 09:53 68 145/64 08/01/18 08:00 98.1 68 18 145/64 (91) 96 08/01/18 07:53 65 16 Room Air 21 08/01/18 07:53 97 Room Air 21 08/01/18 07:53 Room Air 21 08/01/18 07:49 Nasal Cannula 3.0 Nasal Cannula 3.0 08/01/18 05:44 162/75 08/01/18 04:00 98.3 65 18 162/75 (104) 96 08/01/18 00:00 98.0 71 17 154/61 (92) 96 07/31/18 21:41 176/77 07/31/18 21:00 Nasal Cannula 3.0 Nasal Cannula 3.0 07/31/18 20:06 78 155/79 07/31/18 20:05 77 18 Room Air 21 07/31/18 20:05 97 Room Air 21 07/31/18 20:05 Room Air 21 07/31/18 20:00 98.1 78 18 155/79 (104) 100 07/31/18 19:13 98.3 07/31/18 16:49 153/69 07/31/18 16:00 98.3 70 18 152/69 (96) 100 Intake and Output 07/31/18 08/01/18 18:59 06:59 Intake Total 1624 ml 100 ml Balance 1624 ml 100 ml Intake Oral 944 ml IV Total 680 ml 100 ml # Voids 3 2 # Bowel Movements 2 Laboratory Tests 08/01/18 07:15: White Blood Count 4.8, Red Blood Count 2.49L, Hemoglobin 8.0L, Hematocrit 25.1L , Mean Corpuscular Volume 101H, Mean Corpuscular Hemoglobin 32.3H, Mean Corpuscular Hemoglobin Concent 32.0, Red Cell Distribution Width 12.3, Platelet Count 164, Mean Platelet Volume 7.1, Neutrophils (%) (Auto) 68.7, Lymphocytes (% ) (Auto) 21.1, Monocytes (%) (Auto) 6.6, Eosinophils (%) (Auto) 3.2H, Basophils (%) (Auto) 0.4, Sodium Level 138, Potassium Level 4.7, Chloride Level 109H, Carbon Dioxide Level 21, Anion Gap 8, Blood Urea Nitrogen 41H, Creatinine 2.6H, Estimat Glomerular Filtration Rate 23.1, Glucose Level 228H, Calcium Level 8.1L , Phosphorus Level 3.7, Magnesium Level 2.1, Total Bilirubin 0.2, Aspartate Amino Transf (AST/SGOT) 18, Alanine Aminotransferase (ALT/SGPT) 29, Alkaline Phosphatase 83, Total Protein 6.2L, Albumin 2.3L, Globulin 3.9, Albumin/ Globulin Ratio 0.6L Height (Feet): 5 Height (Inches): 2.00 Weight (Pounds): 158 General Appearance: alert EENT: TMs normal Neck: supple Cardiovascular: no gallop/murmur Respiratory/Chest: no respiratory distress Abdomen: no mass Extremities: normal inspection Edema: mild edema Neurologic: oriented x 3 Skin: warm/dry Amandeep Howell MD Aug 01, 2018 15:46
[2018-08-01 16:00] VITALS: BP 160/70
--- NOTE | 2018-08-01 19:34 | NUR ---
HAND-OFF: Report given to Aeri, RN,Pt is in stable condition.
[2018-08-01 20:00] VITALS: BP 171/72
[2018-08-01] MEDS: TraZODone 50mg tab ORAL SCH (20:30)
--- NOTE | 2018-08-01 23:30 | NUR ---
NURSE NOTES: Alert and awake. PRN medication given. Voided on bedside commode. IV patent. Non admin IVF since it said one liter only. Patient already had one liter since yesterday. Informed pt use call light for voiding. verbally understood. Call light within reach. Will continue to monitor.
[2018-08-01] MEDS: Albuterol/Ipratropium 3ml neb HHN PRN (23:44)
[2018-08-02] VITALS: BP 175/78
[2018-08-02] MEDS: Minoxidil 2.5mg tab ORAL PRN (00:30)
[2018-08-02 04:00] VITALS: BP 156/68
[2018-08-02] MEDS: HydrALAZINE 25mg tab ORAL SCH ×3 (05:51→21:53)
[2018-08-02 06:37] LABS: BASOPHILS % (AUTO) 0.9 % (0.0-2.0); EOSINOPHILS % (AUTO) 3.3 % (0.0-3.0); HEMATOCRIT 27.6 % (37.0-47.0); HEMOGLOBIN 8.9 G/DL (12.0-16.0); LYMPHOCYTES % (AUTO) 29.6 % (20.0-45.0); MEAN CORPUSCULAR VOLUME 102 FL (80-99); MONOCYTES % (AUTO) 5.4 % (1.0-10.0); NEUTROPHILS % (AUTO) 60.8 % (45.0-75.0); PLATELET COUNT 183 K/UL (150-450); RED BLOOD COUNT 2.72 M/UL (4.20-5.40); RED CELL DISTRIBUTION WIDTH 12.2 % (11.6-14.8); WHITE BLOOD COUNT 4.3 K/UL (4.8-10.8)
[2018-08-02 07:07] LABS: ALANINE AMINOTRANSFERASE 30 U/L (12-78); ALBUMIN 2.5 G/DL (3.4-5.0); ALBUMIN/GLOBULIN RATIO 0.7 (1.0-2.7); ALKALINE PHOSPHATASE 90 U/L (46-116); ANION GAP 10 mmol/L (5-15); ASPARTATE AMINO TRANSFERASE 13 U/L (15-37); BILIRUBIN,TOTAL 0.2 MG/DL (0.2-1.0); BLOOD UREA NITROGEN 41 mg/dL (7-18); CALCIUM 8.7 MG/DL (8.5-10.1); CARBON DIOXIDE 21 MMOL/L (21-32); CHLORIDE 110 MMOL/L (98-107); CREATININE 2.6 MG/DL (0.55-1.30); POTASSIUM 4.5 MMOL/L (3.5-5.1); SODIUM 141 MMOL/L (136-145)
[2018-08-02 07:09] LABS: PHOSPHORUS 3.9 MG/DL (2.5-4.9)
--- NOTE | 2018-08-02 07:30 | NUR ---
NURSE NOTES: Received patient from JENNIFER Tipton in bed resting, denies any pain at the moment. No s/s of respiratory distress or any discomfort. Noted patient has left side weakness upon assessment. Noted left leg and left hand swollen, , endorsed that venous duplex of the lower extremity done and result was negative. Patient is alert and oriented X4, able to make needs known. IV is intact and patent, saline locked. Patient is on RA, no skin issue. Bed is in lowest position with bedside rails up X2. Brakes engaged for safety. Call light is within reach. Will continue with the plan of care.
--- NOTE | 2018-08-02 07:30 | NUR ---
HAND-OFF: Report given to Jovan RODRIGUEZ.
[2018-08-02 08:00] VITALS: BP 140/62
[2018-08-02] MEDS: Carvedilol 12.5mg tab ORAL SCH ×2 (08:27→20:26)
[2018-08-02] MEDS: Docusate 100mg cap ORAL SCH ×3 (08:28→18:03)
[2018-08-02] MEDS: Lactulose 10gm/15ml UDC ORAL SCH ×3 (08:29→18:00)
[2018-08-02] MEDS: Heparin 5000 units/ml inj SUBQ SCH ×2 (08:30→20:27)
[2018-08-02] MEDS ORDERED: Vancomycin 1gm/D5W 275ml IVPB ONE ×2 (09:00)
--- NOTE | 2018-08-02 09:04 | General Progress Note ---
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 D/w Dr. Hagen and he concurred. Subjective Date patient seen: Aug 02, 2018 Time patient seen: 07:00 - am Allergies: Coded Allergies: LISINOPRIL (Verified Allergy, Unknown, 07/16/18) LOSARTAN (Verified Allergy, Unknown, 07/16/18) Subjective REVIEW OF SYSTEMS: Denies rash, fever, chills, sweating, dizziness, drowsiness, blurred vision, sore throat, change in her weight. No shortness of breath at this time. No chest pain, palpitations, or cough. No nausea, vomiting, diarrhea, or blood in the stool or urine. No bowel or bladder incontinence. She is complaining of generalized body pain. SUBJECTIVE: Patient continues to have pain, Morphine was stopped and Percocet was changed to Q4H PRN. Her pain has been tolerated on the Percocet. Objective Last 24 Hour Vital Signs Date Time Temp Pulse Resp B/P (MAP) Pulse Ox O2 Delivery O2 Flow Rate FiO2 08/02/18 08:28 61 140/62 08/02/18 08:27 61 140/62 08/02/18 05:51 156/68 08/02/18 04:00 98.0 67 18 156/68 (97) 94 08/02/18 00:30 175/78 08/02/18 00:00 98.7 73 18 175/78 (110) 94 08/01/18 23:50 69 20 98 Room Air 21 08/01/18 23:38 72 20 93 Room Air 21 08/01/18 21:59 97 Room Air 21 08/01/18 21:59 Room Air 21 08/01/18 21:56 76 20 Room Air 21 08/01/18 21:47 171/73 08/01/18 21:00 Room Air 3.0 Nasal Cannula 08/01/18 20:31 78 171/72 08/01/18 20:00 97.4 78 18 171/72 (105) 94 08/01/18 16:00 98.2 71 160/70 (100) 08/01/18 14:32 142/68 08/01/18 12:00 98.6 70 18 142/56 (84) 08/01/18 09:54 68 145/64 08/01/18 09:53 68 145/64 Intake and Output 08/01/18 08/02/18 19:00 07:00 Intake Total 1000 ml Balance 1000 ml Intake Oral 1000 ml # Voids 3 3 Laboratory Tests 08/02/18 05:20: White Blood Count 4.3L, Red Blood Count 2.72L, Hemoglobin 8.9L, Hematocrit 27.6L , Mean Corpuscular Volume 102H, Mean Corpuscular Hemoglobin 32.8H, Mean Corpuscular Hemoglobin Concent 32.3, Red Cell Distribution Width 12.2, Platelet Count 183, Mean Platelet Volume 7.4, Neutrophils (%) (Auto) 60.8, Lymphocytes (% ) (Auto) 29.6, Monocytes (%) (Auto) 5.4, Eosinophils (%) (Auto) 3.3H, Basophils (%) (Auto) 0.9, Sodium Level 141, Potassium Level 4.5, Chloride Level 110H, Carbon Dioxide Level 21, Anion Gap 10, Blood Urea Nitrogen 41H, Creatinine 2.6H , Estimat Glomerular Filtration Rate 23.1, Glucose Level 212H, Uric Acid 6.0, Calcium Level 8.7, Phosphorus Level 3.9, Magnesium Level 2.1, Total Bilirubin 0.2, Aspartate Amino Transf (AST/SGOT) 13L, Alanine Aminotransferase (ALT/SGPT) 30, Alkaline Phosphatase 90, C-Reactive Protein, Quantitative < 0.4, Pro-B-Type Natriuretic Peptide 68092G, Total Protein 6.2L, Albumin 2.5L, Globulin 3.7, Albumin/Globulin Ratio 0.7L, Random Vancomycin Level 13.3 Height (Feet): 5 Height (Inches): 2.00 Weight (Pounds): 159 Objective GENERAL: Alert, awake, and oriented. LUNGS: Decreased breath sounds bilaterally. HEART: S1 and S2 regular. ABDOMEN: Benign. EXTREMITIES: No cyanosis. No clubbing. NEURO: No changes. Kwabena Verduzco Aug 02, 2018 09:04
--- NOTE | 2018-08-02 10:00 | NUR ---
Called Dr Galicia and left message about patient complaining of left hand swollen. Charge nurse aware. Awaiting call back.
--- NOTE | 2018-08-02 10:01 | NUR ---
CASE MANAGEMENT: REVIEW SI: SOB . PLEURAL EFFUSION T 98.0 HR 67 RR 18 BP 175/78 SAT 94% ROOM AIR WBC 4.3 H/H 8.9/27.6 IS: PROCRIT SQ MWF VANCO IV X1 LACTULOSE PO TID COREG PO Q12HR MED/SURG STATUS DCP: PATIENT IS FROM HOME. HOME WITH HOME HEALTH
--- NOTE | 2018-08-02 11:09 | GI Progress Note ---
Assessment/Plan Problems: (1) Abdominal pain ICD Codes: R10.9 - Unspecified abdominal pain SNOMED: 43710088 (2) Anemia ICD Codes: D64.9 - Anemia, unspecified SNOMED: 612488910 (3) Acute respiratory failure ICD Codes: J96.00 - Acute respiratory failure, unspecified whether with hypoxia or hypercapnia SNOMED: 32828774 Status: unchanged Status Narrative Discussed with Dr. Yarbrough. Assessment/Plan s/p thoracentesis Anemia workup reviewed from prior admission send for OB stool r/o GI bleed monitor H&H, prn transfusions bowel regime add colace and miralax ppi fu cardio/pulmonary recs fu labs The patient was seen and examined at bedside and all new and available data was reviewed in the patients chart. I agree with the above findings, impression and plan. (Patient seen earlier today. Signature stamp does not reflect patient encounter time.). - Marco Antonio Yarbrough MD Subjective Subjective Complaints of shortness of breath and generalized pain Objective Last 24 Hour Vital Signs Date Time Temp Pulse Resp B/P (MAP) Pulse Ox O2 Delivery O2 Flow Rate FiO2 08/02/18 08:28 61 140/62 08/02/18 08:27 61 140/62 08/02/18 05:51 156/68 08/02/18 04:00 98.0 67 18 156/68 (97) 94 08/02/18 00:30 175/78 08/02/18 00:00 98.7 73 18 175/78 (110) 94 08/01/18 23:50 69 20 98 Room Air 21 08/01/18 23:38 72 20 93 Room Air 21 08/01/18 21:59 97 Room Air 21 08/01/18 21:59 Room Air 21 08/01/18 21:56 76 20 Room Air 21 08/01/18 21:47 171/73 08/01/18 21:00 Room Air 3.0 Nasal Cannula 08/01/18 20:31 78 171/72 08/01/18 20:00 97.4 78 18 171/72 (105) 94 08/01/18 16:00 98.2 71 160/70 (100) 08/01/18 14:32 142/68 08/01/18 12:00 98.6 70 18 142/56 (84) Intake and Output 08/01/18 08/02/18 19:00 07:00 Intake Total 1000 ml Balance 1000 ml Intake Oral 1000 ml # Voids 3 3 Laboratory Tests Test 08/02/18 05:20 White Blood Count 4.3 K/UL (4.8-10.8) L Red Blood Count 2.72 M/UL (4.20-5.40) L Hemoglobin 8.9 G/DL (12.0-16.0) L Hematocrit 27.6 % (37.0-47.0) L Mean Corpuscular Volume 102 FL (80-99) H Mean Corpuscular Hemoglobin 32.8 PG (27.0-31.0) H Mean Corpuscular Hemoglobin Concent 32.3 G/DL (32.0-36.0) Red Cell Distribution Width 12.2 % (11.6-14.8) Platelet Count 183 K/UL (150-450) Mean Platelet Volume 7.4 FL (6.5-10.1) Neutrophils (%) (Auto) 60.8 % (45.0-75.0) Lymphocytes (%) (Auto) 29.6 % (20.0-45.0) Monocytes (%) (Auto) 5.4 % (1.0-10.0) Eosinophils (%) (Auto) 3.3 % (0.0-3.0) H Basophils (%) (Auto) 0.9 % (0.0-2.0) Sodium Level 141 MMOL/L (136-145) Potassium Level 4.5 MMOL/L (3.5-5.1) Chloride Level 110 MMOL/L (98-107) H Carbon Dioxide Level 21 MMOL/L (21-32) Anion Gap 10 mmol/L (5-15) Blood Urea Nitrogen 41 mg/dL (7-18) H Creatinine 2.6 MG/DL (0.55-1.30) H Estimat Glomerular Filtration Rate 23.1 mL/min (>60) Glucose Level 212 MG/DL (74-106) H Uric Acid 6.0 MG/DL (2.6-7.2) Calcium Level 8.7 MG/DL (8.5-10.1) Phosphorus Level 3.9 MG/DL (2.5-4.9) Magnesium Level 2.1 MG/DL (1.8-2.4) Total Bilirubin 0.2 MG/DL (0.2-1.0) Aspartate Amino Transf (AST/SGOT) 13 U/L (15-37) L Alanine Aminotransferase (ALT/SGPT) 30 U/L (12-78) Alkaline Phosphatase 90 U/L (46-116) C-Reactive Protein, Quantitative < 0.4 mg/dL (0.00-0.90) Pro-B-Type Natriuretic Peptide 78070 pg/mL (0-125) H Total Protein 6.2 G/DL (6.4-8.2) L Albumin 2.5 G/DL (3.4-5.0) L Globulin 3.7 g/dL Albumin/Globulin Ratio 0.7 (1.0-2.7) L Random Vancomycin Level 13.3 ug/mL Height (Feet): 5 Height (Inches): 2.00 Weight (Pounds): 159 General Appearance: WD/WN, no apparent distress, alert Cardiovascular: normal rate Respiratory/Chest: normal breath sounds, no respiratory distress Abdominal Exam: normal bowel sounds, non tender, soft Extremities: normal range of motion, non-tender Objective Patient has left-sided edema Lance Sosa NP Aug 02, 2018 11:09
[2018-08-02 12:00] VITALS: BP 127/71
--- NOTE | 2018-08-02 12:40 | Diagnostic Imaging Report ---
. Indication: Abdominal pain Technique: Multiplanar grayscale and color Doppler imaging of the abdomen Comparison: None Findings: Limited evaluation of the pancreas due to overlying bowel gas. Partially imaged portions of the pancreatic head appear grossly unremarkable. Liver contour appears smooth. Liver within the upper limits for normal size at 17.6 cm in length. No focal hepatic mass lesion is appreciated sonographically. The main portal vein is patent with normal direction of flow. Sludge noted within the gallbladder. Gallbladder wall within the upper limits of normal thickness. No pericholecystic fluid. No appreciable intrahepatic biliary ductal dilatation. Common bile duct within normal limits measuring 5.5 mm in diameter. Right kidney demonstrates normal echogenicity. There is no hydronephrosis or sonographically appreciable renal stone. Left kidney is not visualized and may be surgically absent Spleen is borderline enlarged at 12.7 cm in length. Imaged portions of the abdominal aorta and inferior vena cava normal in caliber. Bilateral pleural effusions are incidentally identified. Impression: Gallbladder sludge. Equivocal gallbladder wall thickening. No definite pericholecystic fluid or gallbladder distention. Sonographic Javier sign was not documented. Overall findings are equivocal and clinical correlation is recommended. HIDA scan can be obtained for further evaluation as clinically indicated. Spleen measures 12.7 cm in length, borderline enlarged. Liver contour appears smooth. Nonvisualization of the left kidney, possibly congenitally or surgically absent. Bilateral pleural effusions incidentally identified.
--- NOTE | 2018-08-02 13:05 | Infectious Diseases Prog Note ---
Assessment/Plan Assessment/Plan Abx: IV Vancomycin 07/25- Cefepime 07/25- Assessment SOB, worsened- ?worsening edema vs infection(pNA), s/p empiric tx -08/01 CXR" No significant change. Continued demonstration of opacity in the right hemithorax. -07/26 CXR: Improved but still extensive bilateral interstitial and airspace edema versus infiltrates Suspect increasing left pleural effusion -07/25 CXR: Cardiomegaly. Bilateral extensive infiltrates versus edema and bilateral pleural effusions -sp cx p -neg: Legionella ag urine, CrAg serum Gram positive bacteremic, -likely contamiannant -07/25 Bcx 3/4 CONS; 07/25 NTD, NTD -2d echo: no vegetatioms Moderate b/l pleural effusions -07/26 SP R thoracentesis: wbc 240, LDH 61, pH 8- transudate; cx p Afebrile No leukocytosis Recent Probable PNA, s/p Rx -07/19 CT chest: : Marked cardiomegaly. Bilateral pleural effusions. Pulmonary interstitial septal thickening, diffuse faint groundglass opacity, scattered slightly denser parenchymal opacities bilaterally. Findings most likely represent pulmonary edema. However, inflammatory etiologies are also possible. Mediastinal, possible bilateral hilar, possible left axillary lymphadenopathy. This is nonspecific, could indicate inflammatory process, lymphoproliferative disorder, metastatic lymphadenopathy among other possibilities. Splenomegaly. Suspect related to the above. Hepatomegaly -CXR: Reduced lung volumes with bibasilar infiltrates. -influenza sc neg -Bcx neg Recent Acute CHF exacerbation MICHELLE, imporved asthma HTN DM CVA w/ L side weakness [facility] resident Plan: -Continue to monitor off abx -08/02 SP IV Vancomycin #9 -08/01 SP Cefepime #7 -07/20 SP Levaquin #5 -07/15 SP Unasyn x1 -f/u sp cx (fungal, bacterial), Cocci, fungitell -Monitor CBC/C MP, temperatures -Aspiration precautions -Cards, Renal f/u Thank you for this consultation. Will continue to follow along with you. Subjective Allergies: Coded Allergies: LISINOPRIL (Verified Allergy, Unknown, 07/16/18) LOSARTAN (Verified Allergy, Unknown, 07/16/18) Subjective afebrile repaet Bcx NTD at RA Objective Vital Signs Last 24 Hour Vital Signs Date Time Temp Pulse Resp B/P (MAP) Pulse Ox O2 Delivery O2 Flow Rate FiO2 08/02/18 12:00 97.7 74 18 127/71 (89) 97 08/02/18 08:28 61 140/62 18 08:27 61 140/62 08/02/18 08:00 97.4 61 18 140/62 (88) 97 08/02/18 05:51 156/68 08/02/18 04:00 98.0 67 18 156/68 (97) 94 08/02/18 00:30 175/78 08/02/18 00:00 98.7 73 18 175/78 (110) 94 08/01/18 23:50 69 20 98 Room Air 21 08/01/18 23:38 72 20 93 Room Air 21 08/01/18 21:59 97 Room Air 21 08/01/18 21:59 Room Air 21 08/01/18 21:56 76 20 Room Air 21 08/01/18 21:47 171/73 08/01/18 21:00 Room Air 3.0 Nasal Cannula 08/01/18 20:31 78 171/72 08/01/18 20:00 97.4 78 18 171/72 (105) 94 08/01/18 16:00 98.2 71 160/70 (100) 08/01/18 14:32 142/68 Height (Feet): 5 Height (Inches): 2.00 Weight (Pounds): 159 Objective GENERAL: Calm in bed, oriented x3, slightly distress secondary to short of breath. CARDIOVASCULAR: No murmur. LUNGS: Poor exchange. ABDOMEN: Bowel sounds distant. EXTREMITIES: No cyanosis, clubbing, or edema. NEUROLOGIC: The patient moves all extremities, slightly weak Laboratory Tests Test 08/02/18 05:20 White Blood Count 4.3 K/UL (4.8-10.8) L Red Blood Count 2.72 M/UL (4.20-5.40) L Hemoglobin 8.9 G/DL (12.0-16.0) L Hematocrit 27.6 % (37.0-47.0) L Mean Corpuscular Volume 102 FL (80-99) H Mean Corpuscular Hemoglobin 32.8 PG (27.0-31.0) H Mean Corpuscular Hemoglobin Concent 32.3 G/DL (32.0-36.0) Red Cell Distribution Width 12.2 % (11.6-14.8) Platelet Count 183 K/UL (150-450) Mean Platelet Volume 7.4 FL (6.5-10.1) Neutrophils (%) (Auto) 60.8 % (45.0-75.0) Lymphocytes (%) (Auto) 29.6 % (20.0-45.0) Monocytes (%) (Auto) 5.4 % (1.0-10.0) Eosinophils (%) (Auto) 3.3 % (0.0-3.0) H Basophils (%) (Auto) 0.9 % (0.0-2.0) Sodium Level 141 MMOL/L (136-145) Potassium Level 4.5 MMOL/L (3.5-5.1) Chloride Level 110 MMOL/L (98-107) H Carbon Dioxide Level 21 MMOL/L (21-32) Anion Gap 10 mmol/L (5-15) Blood Urea Nitrogen 41 mg/dL (7-18) H Creatinine 2.6 MG/DL (0.55-1.30) H Estimat Glomerular Filtration Rate 23.1 mL/min (>60) Glucose Level 212 MG/DL (74-106) H Uric Acid 6.0 MG/DL (2.6-7.2) Calcium Level 8.7 MG/DL (8.5-10.1) Phosphorus Level 3.9 MG/DL (2.5-4.9) Magnesium Level 2.1 MG/DL (1.8-2.4) Total Bilirubin 0.2 MG/DL (0.2-1.0) Aspartate Amino Transf (AST/SGOT) 13 U/L (15-37) L Alanine Aminotransferase (ALT/SGPT) 30 U/L (12-78) Alkaline Phosphatase 90 U/L (46-116) C-Reactive Protein, Quantitative < 0.4 mg/dL (0.00-0.90) Pro-B-Type Natriuretic Peptide 64465 pg/mL (0-125) H Total Protein 6.2 G/DL (6.4-8.2) L Albumin 2.5 G/DL (3.4-5.0) L Globulin 3.7 g/dL Albumin/Globulin Ratio 0.7 (1.0-2.7) L Random Vancomycin Level 13.3 ug/mL Current Medications Medications (Trade) Dose Ordered Sig/Zara Route PRN Reason Start Time Stop Time Status Last Admin Dose Admin Acetaminophen (Tylenol) 650 mg Q4H PRN ORAL fever (temp>100.5F) 07/27/18 07:15 08/24/18 07:14 Albuterol/ Ipratropium (Albuterol/ Ipratropium) 3 ml Q4H PRN HHN Shortness of Breath 08/01/18 22:15 08/06/18 22:14 08/01/18 23:44 Amlodipine Besylate (Norvasc) 10 mg DAILY ORAL 07/27/18 09:00 08/24/18 08:59 08/02/18 08:28 Atorvastatin Calcium (Lipitor) 10 mg BEDTIME ORAL 07/29/18 21:00 08/24/18 20:59 08/01/18 20:30 Carvedilol (Coreg) 37.5 mg EVERY 12 HOURS ORAL 07/27/18 09:00 08/24/18 08:59 08/02/18 08:27 Clopidogrel Bisulfate (Plavix) 75 mg DAILY ORAL 07/27/18 09:00 08/24/18 08:59 08/02/18 08:28 Docusate Sodium (Colace) 100 mg TID ORAL 07/29/18 18:00 08/28/18 08:59 08/02/18 08:28 Epoetin Yordan (Procrit (for non ESRD use)) 10,000 units TUE-TUE-TUE SUBQ 08/02/18 21:00 09/01/18 20:59 Gabapentin (Neurontin) 300 mg EVERY 12 HOURS ORAL 07/31/18 21:00 08/26/18 08:59 08/02/18 08:28 Heparin Sodium (Porcine) (Heparin 5000 units/ml) 5,000 units EVERY 12 HOURS SUBQ 07/27/18 09:00 08/24/18 08:59 08/02/18 08:30 Hydralazine HCl (Apresoline) 75 mg Q8HR ORAL 07/31/18 16:35 08/30/18 16:34 08/02/18 05:51 Lactulose (Cephulac) 10 gm THREE TIMES A DAY ORAL 07/30/18 09:00 08/29/18 08:59 08/02/18 08:29 Lorazepam (Ativan) 0.5 mg DAILYPRN PRN ORAL For Anxiety 07/27/18 09:00 08/03/18 08:59 Minoxidil (Loniten) 2.5 mg Q4H PRN ORAL bp over 165 syst 07/29/18 14:30 08/28/18 14:29 08/02/18 00:30 Mirtazapine (Remeron) 7.5 mg BEDTIME ORAL 07/27/18 21:00 08/24/18 20:59 08/01/18 20:31 Nateglinide (Starlix) 120 mg TIAC ORAL 08/01/18 16:30 08/30/18 16:29 08/02/18 05:51 Ondansetron HCl (Zofran) 4 mg Q6H PRN IVP Nausea & Vomiting 07/27/18 07:15 08/24/18 07:14 Oxycodone/ Acetaminophen (Percocet 10/325) 1 tab Q4H PRN ORAL Severe Pain (Pain Scale 7-10) 08/01/18 17:23 08/08/18 17:22 08/02/18 10:58 Pantoprazole (Protonix) 40 mg DAILY ORAL 07/29/18 14:30 08/28/18 14:29 08/02/18 08:28 Polyethylene Glycol (Miralax) 17 gm DAILYPRN PRN ORAL Constipation 07/27/18 07:15 08/24/18 07:14 Trazodone HCl (Desyrel) 50 mg BEDTIME ORAL 07/27/18 21:00 08/24/18 20:59 08/01/18 20:30 Vancomycin HCl (Vanco rx to dose) 1 ea DAILY PRN MISC . 07/27/18 09:00 08/24/18 07:59 Juliane Mcdonald M.D. Aug 02, 2018 13:05
--- NOTE | 2018-08-02 13:42 | Nephrology Progress Note ---
Assessment/Plan Problem List: (1) Acute on chronic renal failure (2) Solitary kidney (3) Diabetes mellitus (4) Hypertension (5) Diabetic neuropathy (6) Anemia Assessment 1. MICHELLE 2.CKD Absent left kidney 3.HTN ? DM 4.CHF - normal Ej Fx 5.hypocalcemia 6. Anemia of CKD 7. CVA lt weak Plan adjust BP meds- One liter IV starlix increase dose Anemia beckman monitoring renal function avoid NSAID Replace electrolyte as need it per orders IV Venofer SQ EPO Subjective ROS Limited/Unobtainable: No Constitutional: Reports: malaise Objective Objective Last 24 Hour Vital Signs Date Time Temp Pulse Resp B/P (MAP) Pulse Ox O2 Delivery O2 Flow Rate FiO2 08/02/18 13:12 127/71 08/02/18 12:00 97.7 74 18 127/71 (89) 97 08/02/18 11:28 97.7 08/02/18 09:00 Room Air 3.0 Nasal Cannula 08/02/18 08:28 61 140/62 08/02/18 08:27 61 140/62 08/02/18 08:00 97.4 61 18 140/62 (88) 97 08/02/18 05:51 156/68 08/02/18 04:00 98.0 67 18 156/68 (97) 94 08/02/18 00:30 175/78 08/02/18 00:00 98.7 73 18 175/78 (110) 94 08/01/18 23:50 69 20 98 Room Air 21 08/01/18 23:38 72 20 93 Room Air 21 08/01/18 21:59 97 Room Air 21 08/01/18 21:59 Room Air 21 08/01/18 21:56 76 20 Room Air 21 08/01/18 21:47 171/73 08/01/18 21:00 Room Air 3.0 Nasal Cannula 08/01/18 20:31 78 171/72 08/01/18 20:00 97.4 78 18 171/72 (105) 94 08/01/18 16:00 98.2 71 160/70 (100) 08/01/18 14:32 142/68 Intake and Output 08/01/18 08/02/18 19:00 07:00 Intake Total 1000 ml Balance 1000 ml Intake Oral 1000 ml # Voids 3 3 Laboratory Tests 08/02/18 05:20: White Blood Count 4.3L, Red Blood Count 2.72L, Hemoglobin 8.9L, Hematocrit 27.6L , Mean Corpuscular Volume 102H, Mean Corpuscular Hemoglobin 32.8H, Mean Corpuscular Hemoglobin Concent 32.3, Red Cell Distribution Width 12.2, Platelet Count 183, Mean Platelet Volume 7.4, Neutrophils (%) (Auto) 60.8, Lymphocytes (% ) (Auto) 29.6, Monocytes (%) (Auto) 5.4, Eosinophils (%) (Auto) 3.3H, Basophils (%) (Auto) 0.9, Sodium Level 141, Potassium Level 4.5, Chloride Level 110H, Carbon Dioxide Level 21, Anion Gap 10, Blood Urea Nitrogen 41H, Creatinine 2.6H , Estimat Glomerular Filtration Rate 23.1, Glucose Level 212H, Uric Acid 6.0, Calcium Level 8.7, Phosphorus Level 3.9, Magnesium Level 2.1, Total Bilirubin 0.2, Aspartate Amino Transf (AST/SGOT) 13L, Alanine Aminotransferase (ALT/SGPT) 30, Alkaline Phosphatase 90, C-Reactive Protein, Quantitative < 0.4, Pro-B-Type Natriuretic Peptide 98882N, Total Protein 6.2L, Albumin 2.5L, Globulin 3.7, Albumin/Globulin Ratio 0.7L, Random Vancomycin Level 13.3 Height (Feet): 5 Height (Inches): 2.00 Weight (Pounds): 159 General Appearance: no apparent distress Objective no change Abdullahi Newby MD Aug 02, 2018 13:42
--- NOTE | 2018-08-02 14:30 | NUR ---
RD ASSESSMENT & RECOMMENDATIONS SEE CARE ACTIVITY FOR COMPLETE ASSESSMENT DAILY ESTIMATED NEEDS: Needs based on Renal, DM, cardiac 55.5kg adj 25-30 kcals/kg 6038-7039 total kcals .8-1.2 g protein/kg 44-67 g total protein 25-30 mL/kg 7908-1591 total fluid mLs NUTRITION DIAGNOSIS: Decreased sodium and potassium needs r/t renal dysfunction and cardiac history as evidenced by elev Creat (2.6), elev K-> now wnl, elev BNP (12898), elev BP, h/o CVA. 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
[2018-08-02] MEDS ORDERED: 1/2 NS 1000ml IV ONE (15:42)
--- NOTE | 2018-08-02 15:53 | NUR ---
P.T PROGRESS NOTES: PATIENT DEMONSTRATING SLOW HOWEVER STEADY PROGRESSING DURING THE COURSE OF P.T.PATIENT CURRENTLY REQUIRE MIN A X 1 FOR BED MOBILITIES, MOD/MIN FOR TRANSFER ACTIVITIES. PATIENT ABLE TO SIT UNSUPPORTED AT THE EOB AND TOLERATING SITTING UP IN CHAIR RECLINER FOR MORE THAN 3 HRS. PATIENT WAS ABLE TO STAND WITH RUE SUPPORT HOWEVER UNABLE TO INITIATE STEPS. CONTINUE WITH POC WITH PROGRESSION OF ACTIVITY. INSTRUCTED PATIENT TO HAVE FAMILY BRING THE AFO TO INITIATE GAIT TRAINING. Addendum: 08/02/18 at 1600 by SAGRARIO LOCKWOOD PT Amended: Links added.
[2018-08-02 16:00] VITALS: BP 169/75
--- NOTE | 2018-08-02 16:33 | General Progress Note ---
Assessment/Plan Status: stable Assessment/Plan Covering for Dr. Ravi Geiger ASSESSMENT/RECS: #. Anemia of chronic disease -- patient with ongoing kidney damage, cr is elevated appeox 2-2.5 baseline --> anemia panel has been reviewed and tsh, ferritin, tibc, esr, b12, folate, fibrinogen, iron % reviewed --> appreciate nephrology consult --> continue on epogen --> transfuse if hgb is <7 --> hemolysis w/u has been reviewed --> ON EPO SQ AND IRON IV # Leukopenia wbc in the 4-6 range --> hepatitis panel negative, hiv neg --> us abd shows borderline spleen enlargement # Acute versus chronic renal failure. as per renal etiology of acute renal failure is cardiorenal syndrome, prerenal azotemia versus unstable --> bp to improve on current meds --> nephro recs appreciated #. Coagulopathy with elevated inr --> recheck in future prn, now improved #. Congestive heart failure, but at this point the patient seems to be euvolemic. --> per cardiology #. 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 #. Uncontrolled hypertension. --> now better #. Pleural eff s/p thora Greatly appreciate consultation Subjective Date patient seen: Aug 02, 2018 Hematologic/Lymphatic: Reports: anemia Allergies: Coded Allergies: LISINOPRIL (Verified Allergy, Unknown, 07/16/18) LOSARTAN (Verified Allergy, Unknown, 07/16/18) All Systems: reviewed and negative except above Subjective 08/01: no fevers, no chills, no night sweats, on epo and iron, feeling better, dc when all cleared 08/02: Pt awake and alert. Pt c/o hand swelling. H/H stable. BP elevated. Objective Last 24 Hour Vital Signs Date Time Temp Pulse Resp B/P (MAP) Pulse Ox O2 Delivery O2 Flow Rate FiO2 08/02/18 16:00 97.8 77 18 169/75 (106) 97 08/02/18 13:12 127/71 08/02/18 12:00 97.7 74 18 127/71 (89) 97 08/02/18 11:28 97.7 08/02/18 09:00 Room Air 3.0 Nasal Cannula 08/02/18 08:28 61 140/62 08/02/18 08:27 61 140/62 08/02/18 08:00 97.4 61 18 140/62 (88) 97 08/02/18 05:51 156/68 08/02/18 04:00 98.0 67 18 156/68 (97) 94 08/02/18 00:30 175/78 08/02/18 00:00 98.7 73 18 175/78 (110) 94 08/01/18 23:50 69 20 98 Room Air 21 08/01/18 23:38 72 20 93 Room Air 21 08/01/18 21:59 97 Room Air 21 08/01/18 21:59 Room Air 21 08/01/18 21:56 76 20 Room Air 21 08/01/18 21:47 171/73 08/01/18 21:00 Room Air 3.0 Nasal Cannula 08/01/18 20:31 78 171/72 08/01/18 20:00 97.4 78 18 171/72 (105) 94 Intake and Output 08/01/18 08/02/18 18:59 06:59 Intake Total 1000 ml Balance 1000 ml Intake Oral 1000 ml # Voids 3 3 Laboratory Tests 08/02/18 05:20: White Blood Count 4.3L, Red Blood Count 2.72L, Hemoglobin 8.9L, Hematocrit 27.6L , Mean Corpuscular Volume 102H, Mean Corpuscular Hemoglobin 32.8H, Mean Corpuscular Hemoglobin Concent 32.3, Red Cell Distribution Width 12.2, Platelet Count 183, Mean Platelet Volume 7.4, Neutrophils (%) (Auto) 60.8, Lymphocytes (% ) (Auto) 29.6, Monocytes (%) (Auto) 5.4, Eosinophils (%) (Auto) 3.3H, Basophils (%) (Auto) 0.9, Sodium Level 141, Potassium Level 4.5, Chloride Level 110H, Carbon Dioxide Level 21, Anion Gap 10, Blood Urea Nitrogen 41H, Creatinine 2.6H , Estimat Glomerular Filtration Rate 23.1, Glucose Level 212H, Uric Acid 6.0, Calcium Level 8.7, Phosphorus Level 3.9, Magnesium Level 2.1, Total Bilirubin 0.2, Aspartate Amino Transf (AST/SGOT) 13L, Alanine Aminotransferase (ALT/SGPT) 30, Alkaline Phosphatase 90, C-Reactive Protein, Quantitative < 0.4, Pro-B-Type Natriuretic Peptide 70104F, Total Protein 6.2L, Albumin 2.5L, Globulin 3.7, Albumin/Globulin Ratio 0.7L, Random Vancomycin Level 13.3 Height (Feet): 5 Height (Inches): 2.00 Weight (Pounds): 159 General Appearance: no apparent distress, alert EENT: PERRL/EOMI Neck: normal alignment Cardiovascular: irregularly irregular Respiratory/Chest: no respiratory distress Abdomen: soft Amandeep Howell MD Aug 02, 2018 16:33
--- NOTE | 2018-08-02 19:14 | NUR ---
HAND-OFF: Report given to JENNIFER Tipton. Patient is in stable condition.
[2018-08-02] MEDS: TraZODone 50mg tab ORAL SCH (20:25)
--- NOTE | 2018-08-02 20:37 | NUR ---
NURSE NOTES: Alert and awake. PRN medication given for pain. No acute distress noted. No IVF is running. IV patent. Call light within reach. Will continue to monitor.
[2018-08-02 20:41] VITALS: BP 132/88
[2018-08-02] MEDS: Epogen (for non ESRD use) SUBQ SCH (21:54)
[2018-08-03] VITALS: BP 136/82
[2018-08-03 04:00] VITALS: BP 160/80
[2018-08-03] MEDS: HydrALAZINE 25mg tab ORAL SCH ×3 (05:44→22:20)
[2018-08-03 07:11] LABS: BASOPHILS % (AUTO) 1.1 % (0.0-2.0); EOSINOPHILS % (AUTO) 3.2 % (0.0-3.0); HEMATOCRIT 25.9 % (37.0-47.0); HEMOGLOBIN 8.4 G/DL (12.0-16.0); MEAN CORPUSCULAR VOLUME 101 FL (80-99); MONOCYTES % (AUTO) 8.2 % (1.0-10.0); NEUTROPHILS % (AUTO) 57.5 % (45.0-75.0); PLATELET COUNT 187 K/UL (150-450); RED BLOOD COUNT 2.56 M/UL (4.20-5.40); RED CELL DISTRIBUTION WIDTH 12.3 % (11.6-14.8)
--- NOTE | 2018-08-03 07:26 | NUR ---
HAND-OFF: Report given to Nataliya RODRIGUEZ.
--- NOTE | 2018-08-03 07:30 | NUR ---
NURSE NOTES: Patient is in bed awake and able to verbalize needs. Patient does not complain of pain or SOB. Patient is in no visible signs of distress. Patient is in bed in locked position, all safety measures provided, call light within reach. WIll continue to monitor.
[2018-08-03 07:43] LABS: ANION GAP 10 mmol/L (5-15); BLOOD UREA NITROGEN 41 mg/dL (7-18); CALCIUM 8.4 MG/DL (8.5-10.1); CARBON DIOXIDE 20 MMOL/L (21-32); CHLORIDE 111 MMOL/L (98-107); CREATININE 2.5 MG/DL (0.55-1.30); POTASSIUM 4.3 MMOL/L (3.5-5.1); SODIUM 141 MMOL/L (136-145)
[2018-08-03 08:00] VITALS: BP 126/68
--- NOTE | 2018-08-03 08:52 | NUR ---
CASE MANAGEMENT: REVIEW SI: SOB . PLEURAL EFFUSION T 97.9 HR 74 RR 20 BP 160/80 SAT 97% ROOM AIR WBC 4.0 H/H 8.4/25.9 IS: PROCRIT SQ MWF VANCO IV X1 LACTULOSE PO TID COREG PO Q12HR MED/SURG STATUS DCP: PATIENT IS FROM HOME. HOME WITH HOME HEALTH
[2018-08-03] MEDS: Lactulose 10gm/15ml UDC ORAL SCH ×4 (08:54→17:25)
--- NOTE | 2018-08-03 08:54 | NUR ---
INSURANCE UPDATED CLINICAL AND REVIEW FAXED TO [facility] T: [phone] OPT#2 F: [phone]
[2018-08-03] MEDS: Carvedilol 12.5mg tab ORAL SCH ×2 (08:55→20:38)
[2018-08-03] MEDS: Docusate 100mg cap ORAL SCH ×3 (08:55→17:25)
--- NOTE | 2018-08-03 08:55 | General Progress Note ---
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 D/w Dr. Hagen and he concurred. Subjective Date patient seen: Aug 03, 2018 Time patient seen: 07:15 - am Allergies: Coded Allergies: LISINOPRIL (Verified Allergy, Unknown, 07/16/18) LOSARTAN (Verified Allergy, Unknown, 07/16/18) Subjective REVIEW OF SYSTEMS: Denies rash, fever, chills, sweating, dizziness, drowsiness, blurred vision, sore throat, change in her weight. No shortness of breath at this time. No chest pain, palpitations, or cough. No nausea, vomiting, diarrhea, or blood in the stool or urine. No bowel or bladder incontinence. She is complaining of generalized body pain. SUBJECTIVE: Patient is in bed no signs of pain or distress. She has tolerated the pain on the Percocet 4 doses in the last 24hrs. No new complaints at this time. Objective Last 24 Hour Vital Signs Date Time Temp Pulse Resp B/P (MAP) Pulse Ox O2 Delivery O2 Flow Rate FiO2 08/03/18 08:00 97.9 74 20 126/68 (87) 97 08/03/18 05:44 160/80 08/03/18 04:00 98.2 71 18 160/80 (106) 97 08/03/18 00:00 98.1 72 16 136/82 (100) 95 08/02/18 23:48 Room Air 21 08/02/18 23:48 94 Room Air 21 08/02/18 23:48 74 16 Room Air 21 08/02/18 21:53 165/75 08/02/18 21:00 Room Air Room Air 08/02/18 20:41 98.0 76 17 132/88 (103) 96 08/02/18 20:26 76 132/88 08/02/18 16:00 97.8 77 18 169/75 (106) 97 08/02/18 13:12 127/71 08/02/18 12:00 97.7 74 18 127/71 (89) 97 08/02/18 11:28 97.7 08/02/18 09:00 Room Air 3.0 Nasal Cannula Intake and Output 08/02/18 08/03/18 19:00 07:00 Intake Total 450 ml Balance 450 ml Intake Oral 450 ml # Voids 2 2 Laboratory Tests 08/03/18 06:18: White Blood Count 4.0L, Red Blood Count 2.56L, Hemoglobin 8.4L, Hematocrit 25.9L , Mean Corpuscular Volume 101H, Mean Corpuscular Hemoglobin 32.6H, Mean Corpuscular Hemoglobin Concent 32.3, Red Cell Distribution Width 12.3, Platelet Count 187, Mean Platelet Volume 7.6, Neutrophils (%) (Auto) 57.5, Lymphocytes (% ) (Auto) 30.0, Monocytes (%) (Auto) 8.2, Eosinophils (%) (Auto) 3.2H, Basophils (%) (Auto) 1.1, Sodium Level 141, Potassium Level 4.3, Chloride Level 111H, Carbon Dioxide Level 20L, Anion Gap 10, Blood Urea Nitrogen 41H, Creatinine 2.5H , Estimat Glomerular Filtration Rate 24.2, Glucose Level 169H, Calcium Level 8.4L Height (Feet): 5 Height (Inches): 2.00 Weight (Pounds): 159 Objective GENERAL: Alert, awake, and oriented. LUNGS: Decreased breath sounds bilaterally. HEART: S1 and S2 regular. ABDOMEN: Benign. EXTREMITIES: No cyanosis. No clubbing. NEURO: No changes. Kwabena Verduzco Aug 03, 2018 08:55
[2018-08-03] MEDS: Heparin 5000 units/ml inj SUBQ SCH ×2 (08:56→20:41)
--- NOTE | 2018-08-03 09:00 | NUR ---
NURSE NOTES:SPOKE WITH RYAN(CASE MNGR).RE:PENDING DISCHARGE TILL CLEARED BY CARDIO(DR. STOKES)PER CONVERSATION. IS OUT OF TOWN AND WILL BE IN TOMORROW. Addendum: 08/03/18 at 1141 by ELY MATTHEW RN DME([employer] [facility]EDS[employer])PRIOR TO D/C WAS ALSO ADDRESSED TO LV(CASE MNGR) PER ORDER OF .
--- NOTE | 2018-08-03 10:44 | NUR ---
NURSE NOTES: Patient complained of 10/10 general body pain, offered pain medication as ordered, tolerated well. Patient's left arm is edematous, advised patient to elevate extremity. Patient refused. Patient in bed in locked position and call light within reach. Will continue to monitor.
--- NOTE | 2018-08-03 11:26 | GI Progress Note ---
Assessment/Plan Problems: (1) Abdominal pain ICD Codes: R10.9 - Unspecified abdominal pain SNOMED: 71528851 (2) Anemia ICD Codes: D64.9 - Anemia, unspecified SNOMED: 556227380 (3) Acute respiratory failure ICD Codes: J96.00 - Acute respiratory failure, unspecified whether with hypoxia or hypercapnia SNOMED: 34425918 Status: stable Status Narrative Discussed with Dr. Yarbrough Assessment/Plan s/p thoracentesis Anemia workup reviewed from prior admission send for OB stool r/o GI bleed monitor H&H, prn transfusions bowel regime colace and miralax ppi fu cardio/pulmonary recs fu labs Outpatient GI procedures The patient was seen and examined at bedside and all new and available data was reviewed in the patients chart. I agree with the above findings, impression and plan. (Patient seen earlier today. Signature stamp does not reflect patient encounter time.). - Marco Antonio Yarbrough MD Subjective Subjective Shortness of breath has improved Generalized pain Objective Last 24 Hour Vital Signs Date Time Temp Pulse Resp B/P (MAP) Pulse Ox O2 Delivery O2 Flow Rate FiO2 08/03/18 09:00 Room Air Room Air 08/03/18 08:55 74 126/68 08/03/18 08:54 74 126/68 08/03/18 08:00 97.9 74 20 126/68 (87) 97 08/03/18 05:44 160/80 08/03/18 04:00 98.2 71 18 160/80 (106) 97 08/03/18 00:00 98.1 72 16 136/82 (100) 95 08/02/18 23:48 Room Air 21 08/02/18 23:48 94 Room Air 21 08/02/18 23:48 74 16 Room Air 21 08/02/18 21:53 165/75 08/02/18 21:00 Room Air Room Air 08/02/18 20:41 98.0 76 17 132/88 (103) 96 08/02/18 20:26 76 132/88 08/02/18 16:00 97.8 77 18 169/75 (106) 97 08/02/18 13:12 127/71 08/02/18 12:00 97.7 74 18 127/71 (89) 97 08/02/18 11:28 97.7 Intake and Output 12/26/18 12/27/18 19:00 07:00 Intake Total 450 ml Balance 450 ml Intake Oral 450 ml # Voids 2 2 Laboratory Tests Test 08/03/18 06:18 White Blood Count 4.0 K/UL (4.8-10.8) L Red Blood Count 2.56 M/UL (4.20-5.40) L Hemoglobin 8.4 G/DL (12.0-16.0) L Hematocrit 25.9 % (37.0-47.0) L Mean Corpuscular Volume 101 FL (80-99) H Mean Corpuscular Hemoglobin 32.6 PG (27.0-31.0) H Mean Corpuscular Hemoglobin Concent 32.3 G/DL (32.0-36.0) Red Cell Distribution Width 12.3 % (11.6-14.8) Platelet Count 187 K/UL (150-450) Mean Platelet Volume 7.6 FL (6.5-10.1) Neutrophils (%) (Auto) 57.5 % (45.0-75.0) Lymphocytes (%) (Auto) 30.0 % (20.0-45.0) Monocytes (%) (Auto) 8.2 % (1.0-10.0) Eosinophils (%) (Auto) 3.2 % (0.0-3.0) H Basophils (%) (Auto) 1.1 % (0.0-2.0) Sodium Level 141 MMOL/L (136-145) Potassium Level 4.3 MMOL/L (3.5-5.1) Chloride Level 111 MMOL/L (98-107) H Carbon Dioxide Level 20 MMOL/L (21-32) L Anion Gap 10 mmol/L (5-15) Blood Urea Nitrogen 41 mg/dL (7-18) H Creatinine 2.5 MG/DL (0.55-1.30) H Estimat Glomerular Filtration Rate 24.2 mL/min (>60) Glucose Level 169 MG/DL (74-106) H Calcium Level 8.4 MG/DL (8.5-10.1) L Height (Feet): 5 Height (Inches): 2.00 Weight (Pounds): 159 General Appearance: WD/WN, no apparent distress, alert Cardiovascular: normal rate Respiratory/Chest: normal breath sounds, no respiratory distress Abdominal Exam: normal bowel sounds, non tender, soft Extremities: normal range of motion, non-tender, other Objective Patient has left-sided edema Lance Sosa NP Aug 03, 2018 11:26
[2018-08-03 12:00] VITALS: BP 138/62
--- NOTE | 2018-08-03 14:52 | Nephrology Progress Note ---
Assessment/Plan Problem List: (1) Acute on chronic renal failure (2) Solitary kidney (3) Diabetes mellitus (4) Hypertension (5) Diabetic neuropathy (6) Anemia Assessment 1. MICHELLE 2.CKD Absent left kidney 3.HTN ? DM 4.CHF - normal Ej Fx 5.hypocalcemia 6. Anemia of CKD 7. CVA lt weak Plan adjust BP meds- starlix increase dose Anemia beckman monitoring renal function avoid NSAID Replace electrolyte as need it per orders IV Venofer SQ EPO Subjective ROS Limited/Unobtainable: No Constitutional: Reports: malaise, weakness Objective Objective Last 24 Hour Vital Signs Date Time Temp Pulse Resp B/P (MAP) Pulse Ox O2 Delivery O2 Flow Rate FiO2 08/03/18 13:26 160/72 08/03/18 12:00 98.2 65 19 138/62 (87) 99 08/03/18 09:00 Room Air Room Air 08/03/18 08:55 74 126/68 08/03/18 08:54 74 126/68 08/03/18 08:00 97.9 74 20 126/68 (87) 97 08/03/18 05:44 160/80 08/03/18 04:00 98.2 71 18 160/80 (106) 97 08/03/18 00:00 98.1 72 16 136/82 (100) 95 08/02/18 23:48 Room Air 21 08/02/18 23:48 94 Room Air 21 08/02/18 23:48 74 16 Room Air 21 08/02/18 21:53 165/75 08/02/18 21:00 Room Air Room Air 08/02/18 20:41 98.0 76 17 132/88 (103) 96 08/02/18 20:26 76 132/88 08/02/18 16:00 97.8 77 18 169/75 (106) 97 Intake and Output 08/02/18 08/03/18 19:00 07:00 Intake Total 450 ml Balance 450 ml Intake Oral 450 ml # Voids 2 2 Laboratory Tests 08/03/18 06:18: White Blood Count 4.0L, Red Blood Count 2.56L, Hemoglobin 8.4L, Hematocrit 25.9L , Mean Corpuscular Volume 101H, Mean Corpuscular Hemoglobin 32.6H, Mean Corpuscular Hemoglobin Concent 32.3, Red Cell Distribution Width 12.3, Platelet Count 187, Mean Platelet Volume 7.6, Neutrophils (%) (Auto) 57.5, Lymphocytes (% ) (Auto) 30.0, Monocytes (%) (Auto) 8.2, Eosinophils (%) (Auto) 3.2H, Basophils (%) (Auto) 1.1, Sodium Level 141, Potassium Level 4.3, Chloride Level 111H, Carbon Dioxide Level 20L, Anion Gap 10, Blood Urea Nitrogen 41H, Creatinine 2.5H , Estimat Glomerular Filtration Rate 24.2, Glucose Level 169H, Calcium Level 8.4L Height (Feet): 5 Height (Inches): 2.00 Weight (Pounds): 159 General Appearance: no apparent distress Objective no change Abdullahi Newby MD Aug 03, 2018 14:52
--- NOTE | 2018-08-03 15:49 | Infectious Diseases Prog Note ---
Assessment/Plan Assessment/Plan Abx: IV Vancomycin 07/25- Cefepime 07/25- Assessment SOB, worsened- ?worsening edema vs infection(pNA), s/p empiric tx -08/01 CXR" No significant change. Continued demonstration of opacity in the right hemithorax. -07/26 CXR: Improved but still extensive bilateral interstitial and airspace edema versus infiltrates Suspect increasing left pleural effusion -07/25 CXR: Cardiomegaly. Bilateral extensive infiltrates versus edema and bilateral pleural effusions -sp cx p -neg: Legionella ag urine, CrAg serum Gram positive bacteremic, -likely contamiannant -07/25 Bcx 3/4 CONS; 07/25 NTD, NTD -2d echo: no vegetatioms Moderate b/l pleural effusions -07/26 SP R thoracentesis: wbc 240, LDH 61, pH 8- transudate; cx p Afebrile No leukocytosis Recent Probable PNA, s/p Rx -07/19 CT chest: : Marked cardiomegaly. Bilateral pleural effusions. Pulmonary interstitial septal thickening, diffuse faint groundglass opacity, scattered slightly denser parenchymal opacities bilaterally. Findings most likely represent pulmonary edema. However, inflammatory etiologies are also possible. Mediastinal, possible bilateral hilar, possible left axillary lymphadenopathy. This is nonspecific, could indicate inflammatory process, lymphoproliferative disorder, metastatic lymphadenopathy among other possibilities. Splenomegaly. Suspect related to the above. Hepatomegaly -CXR: Reduced lung volumes with bibasilar infiltrates. -influenza sc neg -Bcx neg Recent Acute CHF exacerbation MICHELLE, imporved asthma HTN DM CVA w/ L side weakness NH resident Plan: -Continue to monitor off abx -08/02 SP IV Vancomycin #9 -08/01 SP Cefepime #7 -07/20 SP Levaquin #5 -07/15 SP Unasyn x1 -f/u sp cx (fungal, bacterial), Cocci, fungitell -Monitor CBC/C MP, temperatures -Aspiration precautions -Cards, Renal f/u Thank you for this consultation. Will continue to follow along with you. Subjective Allergies: Coded Allergies: LISINOPRIL (Verified Allergy, Unknown, 07/16/18) LOSARTAN (Verified Allergy, Unknown, 07/16/18) Subjective afebrile repaet Bcx NTD at RA now off abx Objective Vital Signs Last 24 Hour Vital Signs Date Time Temp Pulse Resp B/P (MAP) Pulse Ox O2 Delivery O2 Flow Rate FiO2 08/03/18 13:26 160/72 08/03/18 12:00 98.2 65 19 138/62 (87) 99 08/03/18 09:00 Room Air Room Air 08/03/18 08:55 74 126/68 08/03/18 08:54 74 126/68 08/03/18 08:00 97.9 74 20 126/68 (87) 97 08/03/18 05:44 160/80 08/03/18 04:00 98.2 71 18 160/80 (106) 97 08/03/18 00:00 98.1 72 16 136/82 (100) 95 08/02/18 23:48 Room Air 21 08/02/18 23:48 94 Room Air 21 08/02/18 23:48 74 16 Room Air 21 08/02/18 21:53 165/75 08/02/18 21:00 Room Air Room Air 08/02/18 20:41 98.0 76 17 132/88 (103) 96 08/02/18 20:26 76 132/88 08/02/18 16:00 97.8 77 18 169/75 (106) 97 Height (Feet): 5 Height (Inches): 2.00 Weight (Pounds): 159 Objective GENERAL: Calm in bed, oriented x3, slightly distress secondary to short of breath. CARDIOVASCULAR: No murmur. LUNGS: Poor exchange. ABDOMEN: Bowel sounds distant. EXTREMITIES: No cyanosis, clubbing, or edema. NEUROLOGIC: The patient moves all extremities, slightly weak Laboratory Tests Test 08/03/18 06:18 White Blood Count 4.0 K/UL (4.8-10.8) L Red Blood Count 2.56 M/UL (4.20-5.40) L Hemoglobin 8.4 G/DL (12.0-16.0) L Hematocrit 25.9 % (37.0-47.0) L Mean Corpuscular Volume 101 FL (80-99) H Mean Corpuscular Hemoglobin 32.6 PG (27.0-31.0) H Mean Corpuscular Hemoglobin Concent 32.3 G/DL (32.0-36.0) Red Cell Distribution Width 12.3 % (11.6-14.8) Platelet Count 187 K/UL (150-450) Mean Platelet Volume 7.6 FL (6.5-10.1) Neutrophils (%) (Auto) 57.5 % (45.0-75.0) Lymphocytes (%) (Auto) 30.0 % (20.0-45.0) Monocytes (%) (Auto) 8.2 % (1.0-10.0) Eosinophils (%) (Auto) 3.2 % (0.0-3.0) H Basophils (%) (Auto) 1.1 % (0.0-2.0) Sodium Level 141 MMOL/L (136-145) Potassium Level 4.3 MMOL/L (3.5-5.1) Chloride Level 111 MMOL/L (98-107) H Carbon Dioxide Level 20 MMOL/L (21-32) L Anion Gap 10 mmol/L (5-15) Blood Urea Nitrogen 41 mg/dL (7-18) H Creatinine 2.5 MG/DL (0.55-1.30) H Estimat Glomerular Filtration Rate 24.2 mL/min (>60) Glucose Level 169 MG/DL (74-106) H Calcium Level 8.4 MG/DL (8.5-10.1) L Current Medications Medications (Trade) Dose Ordered Sig/Zara Route PRN Reason Start Time Stop Time Status Last Admin Dose Admin Acetaminophen (Tylenol) 650 mg Q4H PRN ORAL fever (temp>100.5F) 07/27/18 07:15 08/24/18 07:14 Albuterol/ Ipratropium (Albuterol/ Ipratropium) 3 ml Q4H PRN HHN Shortness of Breath 08/01/18 22:15 08/06/18 22:14 08/01/18 23:44 Amlodipine Besylate (Norvasc) 10 mg DAILY ORAL 07/27/18 09:00 08/24/18 08:59 08/03/18 08:54 Atorvastatin Calcium (Lipitor) 10 mg BEDTIME ORAL 07/29/18 21:00 08/24/18 20:59 08/02/18 20:25 Carvedilol (Coreg) 37.5 mg EVERY 12 HOURS ORAL 07/27/18 09:00 08/24/18 08:59 08/03/18 08:55 Clopidogrel Bisulfate (Plavix) 75 mg DAILY ORAL 07/27/18 09:00 08/24/18 08:59 08/03/18 08:55 Docusate Sodium (Colace) 100 mg TID ORAL 07/29/18 18:00 08/28/18 08:59 08/03/18 13:25 Epoetin Yordan (Procrit (for non ESRD use)) 10,000 units TUE-TUE-TUE SUBQ 08/02/18 21:00 09/01/18 20:59 08/02/18 21:54 Gabapentin (Neurontin) 300 mg EVERY 12 HOURS ORAL 07/31/18 21:00 08/26/18 08:59 08/03/18 08:55 Heparin Sodium (Porcine) (Heparin 5000 units/ml) 5,000 units EVERY 12 HOURS SUBQ 07/27/18 09:00 08/24/18 08:59 08/03/18 08:56 Hydralazine HCl (Apresoline) 75 mg Q8HR ORAL 07/31/18 16:35 08/30/18 16:34 08/03/18 13:26 Lactulose (Cephulac) 10 gm THREE TIMES A DAY ORAL 07/30/18 09:00 08/29/18 08:59 08/02/18 08:29 Minoxidil (Loniten) 2.5 mg Q4H PRN ORAL bp over 165 syst 07/29/18 14:30 08/28/18 14:29 08/02/18 00:30 Mirtazapine (Remeron) 7.5 mg BEDTIME ORAL 07/27/18 21:00 08/24/18 20:59 08/02/18 20:26 Nateglinide (Starlix) 120 mg TIAC ORAL 08/01/18 16:30 08/30/18 16:29 08/03/18 11:51 Ondansetron HCl (Zofran) 4 mg Q6H PRN IVP Nausea & Vomiting 07/27/18 07:15 08/24/18 07:14 Oxycodone/ Acetaminophen (Percocet 10/325) 1 tab Q4H PRN ORAL Severe Pain (Pain Scale 7-10) 08/01/18 17:23 08/08/18 17:22 08/03/18 15:34 Pantoprazole (Protonix) 40 mg DAILY ORAL 07/29/18 14:30 08/28/18 14:29 08/03/18 08:55 Polyethylene Glycol (Miralax) 17 gm DAILYPRN PRN ORAL Constipation 07/27/18 07:15 08/24/18 07:14 Trazodone HCl (Desyrel) 50 mg BEDTIME ORAL 07/27/18 21:00 08/24/18 20:59 08/02/18 20:25 Juliane Mcdonald M.D. Aug 03, 2018 15:49
[2018-08-03 15:52] VITALS: BP 146/67
--- NOTE | 2018-08-03 17:04 | Diagnostic Imaging Report ---
APPROVED REPORT CPT Code: 16150 Present Symptoms Comments: BILATERAL LEGS PAIN. BILATERAL: Imaging reveals a patent deep venous system bilaterally. There is no evidence of thrombus within the femoral, popliteal or tibial segments. The greater saphenous veins are also within normal limits. Doppler indicates normal spontaneous flow within these segments.
[2018-08-03] MEDS: Albuterol/Ipratropium 3ml neb HHN PRN (17:06)
--- NOTE | 2018-08-03 19:14 | NUR ---
HAND-OFF: Report given to Meli RODRIGUEZ. Patient is stable.
--- NOTE | 2018-08-03 19:30 | NUR ---
NURSE NOTES: Patient awake, sitting up in bed, watching TV, and states 8/10 pain. Will give PRN pain medication when due. IV site Right arm on saline lock. Bed on lowest position, call light within reach, will continue to monitor.
[2018-08-03 20:00] VITALS: BP 136/87
--- NOTE | 2018-08-03 20:05 | General Progress Note ---
Assessment/Plan Assessment/Plan Covering for Dr. Ravi Geiger ASSESSMENT/RECS: #. Anemia of chronic disease -- patient with ongoing kidney damage, cr is elevated appeox 2-2.5 baseline --> anemia panel has been reviewed and tsh, ferritin, tibc, esr, b12, folate, fibrinogen, iron % reviewed --> appreciate nephrology consult --> continue on epogen --> transfuse if hgb is <7 --> hemolysis w/u has been reviewed --> ON EPO SQ AND IRON IV # Leukopenia wbc in the 4-6 range --> hepatitis panel negative, hiv neg --> us abd shows borderline spleen enlargement # Acute versus chronic renal failure. as per renal etiology of acute renal failure is cardiorenal syndrome, prerenal azotemia versus unstable --> bp to improve on current meds --> nephro recs appreciated #. Coagulopathy with elevated inr --> recheck in future prn, now improved #. Congestive heart failure, but at this point the patient seems to be euvolemic. --> as per cardiology #. 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 #. Uncontrolled hypertension. --> now better #. Pleural eff s/p thora Greatly appreciate consultation Subjective Constitutional: Denies: no symptoms, chills, diaphoresis, fever, malaise, weakness, other HEENT: Denies: no symptoms, eye pain, blurred vision, tearing, double vision, ear pain, ear discharge, nose pain, nose congestion, throat pain, throat swelling, mouth pain, mouth swelling, other Cardiovascular: Denies: no symptoms, chest pain, edema, irregular heart rate, lightheadedness, palpitations, syncope, other Respiratory: Denies: no symptoms, cough, orthopnea, shortness of breath, SOB with excertion, SOB at rest, sputum, stridor, wheezing, other Gastrointestinal/Abdominal: Denies: no symptoms, abdomen distended, abdominal pain, black stools, tarry stools, blood in stool, constipated, diarrhea, difficulty swallowing, nausea, poor appetite, poor fluid intake, rectal bleeding , vomiting, other Genitourinary: Denies: no symptoms, burning, discharge, frequency, flank pain, hematuria, incontinence, pain, urgency, other Neurologic/Psychiatric: Denies: no symptoms, anxiety, depressed, emotional problems, headache, numbness, paresthesia, pre-existing deficit, seizure, tingling, tremors, weakness, other Endocrine: Denies: no symptoms, excessive sweating, flushing, intolerance to cold, intolerance to heat, increased hunger, increased thirst, increased urine, unexplained weight gain, unexplained weight loss, other Hematologic/Lymphatic: Denies: no symptoms, anemia, easy bleeding, easy bruising, other Allergies: Coded Allergies: LISINOPRIL (Verified Allergy, Unknown, 07/16/18) LOSARTAN (Verified Allergy, Unknown, 07/16/18) Subjective 08/01: no fevers, no chills, no night sweats, on epo and iron, feeling better, dc when all cleared 08/02: Pt awake and alert. Pt c/o hand swelling. H/H stable. BP elevated. 08/03: on broad spectrum antibiotics, pending clearance by cards, on epo and iron Objective Last 24 Hour Vital Signs Date Time Temp Pulse Resp B/P (MAP) Pulse Ox O2 Delivery O2 Flow Rate FiO2 08/03/18 17:16 72 20 98 Room Air 08/03/18 17:06 68 16 Room Air 08/03/18 17:06 96 Room Air 21 08/03/18 17:06 Room Air 08/03/18 17:06 68 16 96 Room Air 21 08/03/18 15:52 98.3 71 20 146/67 (93) 95 08/03/18 13:26 160/72 08/03/18 12:00 98.2 65 19 138/62 (87) 99 08/03/18 09:00 Room Air Room Air 08/03/18 08:55 74 126/68 08/03/18 08:54 74 126/68 08/03/18 08:00 97.9 74 20 126/68 (87) 97 08/03/18 05:44 160/80 08/03/18 04:00 98.2 71 18 160/80 (106) 97 08/03/18 00:00 98.1 72 16 136/82 (100) 95 08/02/18 23:48 Room Air 21 08/02/18 23:48 94 Room Air 21 08/02/18 23:48 74 16 Room Air 08/02/18 21:53 165/75 08/02/18 21:00 Room Air Room Air 08/02/18 20:41 98.0 76 17 132/88 (103) 96 08/02/18 20:26 76 132/88 Intake and Output 08/02/18 08/03/18 18:59 06:59 Intake Total 450 ml Balance 450 ml Intake Oral 450 ml # Voids 2 2 Laboratory Tests 08/03/18 06:18: White Blood Count 4.0L, Red Blood Count 2.56L, Hemoglobin 8.4L, Hematocrit 25.9L , Mean Corpuscular Volume 101H, Mean Corpuscular Hemoglobin 32.6H, Mean Corpuscular Hemoglobin Concent 32.3, Red Cell Distribution Width 12.3, Platelet Count 187, Mean Platelet Volume 7.6, Neutrophils (%) (Auto) 57.5, Lymphocytes (% ) (Auto) 30.0, Monocytes (%) (Auto) 8.2, Eosinophils (%) (Auto) 3.2H, Basophils (%) (Auto) 1.1, Sodium Level 141, Potassium Level 4.3, Chloride Level 111H, Carbon Dioxide Level 20L, Anion Gap 10, Blood Urea Nitrogen 41H, Creatinine 2.5H , Estimat Glomerular Filtration Rate 24.2, Glucose Level 169H, Calcium Level 8.4L Height (Feet): 5 Height (Inches): 2.00 Weight (Pounds): 159 General Appearance: alert EENT: normal ENT inspection Neck: supple Cardiovascular: regular rhythm Respiratory/Chest: normal breath sounds Abdomen: abnormal bowel sounds Edema: mild edema Neurologic: oriented x 3 Skin: warm/dry Amandeep Howell MD Aug 03, 2018 20:05
[2018-08-03] MEDS: TraZODone 50mg tab ORAL SCH (20:38)
[2018-08-04] VITALS (9 sets, daily range): BP systolic 143–186; BP diastolic 67–89
[2018-08-04] MEDS: HydrALAZINE 25mg tab ORAL SCH ×3 (05:53→22:00)
--- NOTE | 2018-08-04 07:11 | NUR ---
HAND-OFF: Report given to JENNIFER An.
--- NOTE | 2018-08-04 07:15 | NUR ---
NURSE NOTES:WALKING ROUNDS DONE WITH NIGHT RN,PATIENT ASLEEP,LYING ON HER BACK,ROOM AIR NO SIGN OF RESPIRATORY DISTRESS.
--- NOTE | 2018-08-04 08:24 | Infectious Diseases Prog Note ---
Assessment/Plan Assessment/Plan Abx: IV Vancomycin 07/25- Cefepime 07/25- Assessment SOB, worsened- ?worsening edema vs infection(pNA), s/p empiric tx -08/01 CXR" No significant change. Continued demonstration of opacity in the right hemithorax. -07/26 CXR: Improved but still extensive bilateral interstitial and airspace edema versus infiltrates Suspect increasing left pleural effusion -07/25 CXR: Cardiomegaly. Bilateral extensive infiltrates versus edema and bilateral pleural effusions -sp cx p -neg: Legionella ag urine, CrAg serum Gram positive bacteremic, -likely contamiannant -07/25 Bcx 3/4 CONS; 07/25 NTD, NTD -2d echo: no vegetatioms Moderate b/l pleural effusions -07/26 SP R thoracentesis: wbc 240, LDH 61, pH 8- transudate; cx p Afebrile No leukocytosis Recent Probable PNA, s/p Rx -07/19 CT chest: : Marked cardiomegaly. Bilateral pleural effusions. Pulmonary interstitial septal thickening, diffuse faint groundglass opacity, scattered slightly denser parenchymal opacities bilaterally. Findings most likely represent pulmonary edema. However, inflammatory etiologies are also possible. Mediastinal, possible bilateral hilar, possible left axillary lymphadenopathy. This is nonspecific, could indicate inflammatory process, lymphoproliferative disorder, metastatic lymphadenopathy among other possibilities. Splenomegaly. Suspect related to the above. Hepatomegaly -CXR: Reduced lung volumes with bibasilar infiltrates. -influenza sc neg -Bcx neg Recent Acute CHF exacerbation MICHELLE, imporved asthma HTN DM CVA w/ L side weakness NH resident Plan: -Continue to monitor off abx as clinically stable -08/02 SP IV Vancomycin #9 -08/01 SP Cefepime #7 -07/20 SP Levaquin #5 -07/15 SP Unasyn x1 -f/u sp cx (fungal, bacterial), Cocci, fungitell -Monitor CBC/C MP, temperatures -Aspiration precautions -Cards, Renal f/u Thank you for this consultation. Will continue to follow along with you. Subjective Allergies: Coded Allergies: LISINOPRIL (Verified Allergy, Unknown, 07/16/18) LOSARTAN (Verified Allergy, Unknown, 07/16/18) Subjective Says she has no complaints Aferbile No Leukocytosis Satting well on RA Objective Vital Signs Last 24 Hour Vital Signs Date Time Temp Pulse Resp B/P (MAP) Pulse Ox O2 Delivery O2 Flow Rate FiO2 08/04/18 08:06 97.9 70 19 156/74 (101) 96 08/04/18 05:53 143/76 08/04/18 04:00 98.1 74 19 143/76 (98) 96 08/04/18 00:00 98.3 74 20 155/67 (96) 96 08/03/18 22:20 136/87 08/03/18 21:47 94 Room Air 21 08/03/18 21:47 Room Air 21 08/03/18 21:47 70 20 Room Air 21 08/03/18 21:00 Room Air Room Air 08/03/18 20:38 74 136/87 08/03/18 20:00 98.1 74 20 136/87 (103) 98 08/03/18 17:16 72 20 98 Room Air 21 08/03/18 17:06 68 16 Room Air 21 08/03/18 17:06 96 Room Air 21 08/03/18 17:06 Room Air 21 08/03/18 17:06 68 16 96 Room Air 21 08/03/18 15:52 98.3 71 20 146/67 (93) 95 08/03/18 13:26 160/72 08/03/18 12:00 98.2 65 19 138/62 (87) 99 08/03/18 09:00 Room Air Room Air 08/03/18 08:55 74 126/68 08/03/18 08:54 74 126/68 Height (Feet): 5 Height (Inches): 2.00 Weight (Pounds): 159 Objective GENERAL: Calm in bed, oriented x3 CARDIOVASCULAR: RRR, No murmur. LUNGS: Course B/L, ABDOMEN: Soft, ND, Bowel sounds distant. NEUROLOGIC: The patient moves all extremities, slightly weak Current Medications Medications (Trade) Dose Ordered Sig/Zara Route PRN Reason Start Time Stop Time Status Last Admin Dose Admin Acetaminophen (Tylenol) 650 mg Q4H PRN ORAL fever (temp>100.5F) 07/27/18 07:15 08/24/18 07:14 Albuterol/ Ipratropium (Albuterol/ Ipratropium) 3 ml Q4H PRN HHN Shortness of Breath 12/25/18 22:15 08/06/18 22:14 08/03/18 17:06 Amlodipine Besylate (Norvasc) 10 mg DAILY ORAL 07/27/18 09:00 08/24/18 08:59 08/03/18 08:54 Atorvastatin Calcium (Lipitor) 10 mg BEDTIME ORAL 07/29/18 21:00 08/24/18 20:59 08/03/18 20:38 Carvedilol (Coreg) 37.5 mg EVERY 12 HOURS ORAL 07/27/18 09:00 08/24/18 08:59 08/03/18 20:38 Clopidogrel Bisulfate (Plavix) 75 mg DAILY ORAL 07/27/18 09:00 08/24/18 08:59 08/03/18 08:55 Docusate Sodium (Colace) 100 mg TID ORAL 07/29/18 18:00 08/28/18 08:59 08/03/18 17:25 Epoetin Yordan (Procrit (for non ESRD use)) 10,000 units TUE-TUE-TUE SUBQ 08/02/18 21:00 09/01/18 20:59 08/02/18 21:54 Gabapentin (Neurontin) 300 mg EVERY 12 HOURS ORAL 07/31/18 21:00 08/26/18 08:59 08/03/18 20:38 Heparin Sodium (Porcine) (Heparin 5000 units/ml) 5,000 units EVERY 12 HOURS SUBQ 07/27/18 09:00 08/24/18 08:59 08/03/18 20:41 Hydralazine HCl (Apresoline) 75 mg Q8HR ORAL 07/31/18 16:35 08/30/18 16:34 08/04/18 05:53 Lactulose (Cephulac) 10 gm THREE TIMES A DAY ORAL 07/30/18 09:00 08/29/18 08:59 08/03/18 17:25 Minoxidil (Loniten) 2.5 mg Q4H PRN ORAL bp over 165 syst 07/29/18 14:30 08/28/18 14:29 08/02/18 00:30 Mirtazapine (Remeron) 7.5 mg BEDTIME ORAL 07/27/18 21:00 08/24/18 20:59 08/03/18 20:37 Nateglinide (Starlix) 120 mg TIAC ORAL 08/01/18 16:30 08/30/18 16:29 08/04/18 05:53 Ondansetron HCl (Zofran) 4 mg Q6H PRN IVP Nausea & Vomiting 07/27/18 07:15 08/24/18 07:14 Oxycodone/ Acetaminophen (Percocet 10/325) 1 tab Q4H PRN ORAL Severe Pain (Pain Scale 7-10) 08/01/18 17:23 08/08/18 17:22 08/04/18 05:54 Pantoprazole (Protonix) 40 mg DAILY ORAL 07/29/18 14:30 08/28/18 14:29 08/03/18 08:55 Polyethylene Glycol (Miralax) 17 gm DAILYPRN PRN ORAL Constipation 07/27/18 07:15 08/24/18 07:14 Trazodone HCl (Desyrel) 50 mg BEDTIME ORAL 07/27/18 21:00 08/24/18 20:59 08/03/18 20:38 Hilton Masters MD Aug 04, 2018 08:24
[2018-08-04] MEDS: Lactulose 10gm/15ml UDC ORAL SCH ×3 (09:00→17:51)
--- NOTE | 2018-08-04 09:00 | NUR ---
NURSE NOTES:SPOKE TO LV RE:DISCHARGE AND AWAITING CLEARANCE FR. (CARDIO)PER CONVERSATION SHE WILL FOLLOW UP WITH .CHARGE NURSE INFORMED.
--- NOTE | 2018-08-04 09:47 | General Progress Note ---
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 An RX for Percocet 7.5/325mg PO 1 tab Q6-8H PRN 20 tabs was sent top patients pharmacy of choice. D/w Dr. Hagen and he concurred. Subjective Date patient seen: Aug 04, 2018 Time patient seen: 08:00 - am Allergies: Coded Allergies: LISINOPRIL (Verified Allergy, Unknown, 07/16/18) LOSARTAN (Verified Allergy, Unknown, 07/16/18) Subjective REVIEW OF SYSTEMS: Denies rash, fever, chills, sweating, dizziness, drowsiness, blurred vision, sore throat, change in her weight. No shortness of breath at this time. No chest pain, palpitations, or cough. No nausea, vomiting, diarrhea, or blood in the stool or urine. No bowel or bladder incontinence. She is complaining of generalized body pain. SUBJECTIVE: Patient is doing well and pain has been tolerated on the Percocet. She has no new complaints at this time. Objective Last 24 Hour Vital Signs Date Time Temp Pulse Resp B/P (MAP) Pulse Ox O2 Delivery O2 Flow Rate FiO2 08/04/18 08:06 97.9 70 19 156/74 (101) 96 08/04/18 07:59 68 18 Room Air 08/04/18 07:59 Room Air 21 08/04/18 07:59 96 Room Air 21 08/04/18 05:53 143/76 08/04/18 04:00 98.1 74 19 143/76 (98) 96 08/04/18 00:00 98.3 74 20 155/67 (96) 96 08/03/18 22:20 136/87 08/03/18 21:47 94 Room Air 21 08/03/18 21:47 Room Air 21 08/03/18 21:47 70 20 Room Air 21 08/03/18 21:00 Room Air Room Air 08/03/18 20:38 74 136/87 08/03/18 20:00 98.1 74 20 136/87 (103) 98 08/03/18 17:16 72 20 98 Room Air 21 08/03/18 17:06 68 16 Room Air 21 08/03/18 17:06 96 Room Air 21 08/03/18 17:06 Room Air 21 08/03/18 17:06 68 16 96 Room Air 21 08/03/18 15:52 98.3 71 20 146/67 (93) 95 08/03/18 13:26 160/72 08/03/18 12:00 98.2 65 19 138/62 (87) 99 Intake and Output 08/03/18 08/04/18 19:00 07:00 Intake Total 810 ml 120 ml Balance 810 ml 120 ml Intake Oral 810 ml 120 ml # Voids 4 1 # Bowel Movements 1 Height (Feet): 5 Height (Inches): 2.00 Weight (Pounds): 159 Objective GENERAL: Alert, awake, and oriented. LUNGS: Decreased breath sounds bilaterally. HEART: S1 and S2 regular. ABDOMEN: Benign. EXTREMITIES: No cyanosis. No clubbing. NEURO: No changes. Kwabena Verduzco Aug 04, 2018 09:47
[2018-08-04] MEDS: Docusate 100mg cap ORAL SCH ×3 (10:24→17:51)
--- NOTE | 2018-08-04 10:27 | NUR ---
PT NOTE: Attempted x2 this a.m. to see patient for PT treatment. Patient declined x2 due to waiting for other nursing care services. Nataliya RODRIGUEZ notified, will re-attempt as schedule permits.
[2018-08-04] MEDS: Carvedilol 12.5mg tab ORAL SCH ×2 (10:34→21:05)
[2018-08-04] MEDS: Heparin 5000 units/ml inj SUBQ SCH ×2 (10:37→20:58)
--- NOTE | 2018-08-04 10:52 | GI Progress Note ---
Assessment/Plan Problems: (1) Abdominal pain ICD Codes: R10.9 - Unspecified abdominal pain SNOMED: 79287000 (2) Anemia ICD Codes: D64.9 - Anemia, unspecified SNOMED: 422739243 (3) Acute respiratory failure ICD Codes: J96.00 - Acute respiratory failure, unspecified whether with hypoxia or hypercapnia SNOMED: 60322460 Status: unchanged Status Narrative Discussed with Dr. Yarbrough. Assessment/Plan s/p thoracentesis Anemia workup reviewed from prior admission send for OB stool r/o GI bleed monitor H&H, prn transfusions bowel regime colace and miralax ppi fu cardio/pulmonary recs fu labs Outpatient GI procedures The patient was seen and examined at bedside and all new and available data was reviewed in the patients chart. I agree with the above findings, impression and plan. (Patient seen earlier today. Signature stamp does not reflect patient encounter time.). - Marco Antonio Yarbrough MD Subjective Subjective Shortness of breath has improved Generalized pain Objective Last 24 Hour Vital Signs Date Time Temp Pulse Resp B/P (MAP) Pulse Ox O2 Delivery O2 Flow Rate FiO2 08/04/18 10:35 70 156/74 08/04/18 10:34 70 156/74 08/04/18 08:06 97.9 70 19 156/74 (101) 96 08/04/18 07:59 68 18 Room Air 08/04/18 07:59 Room Air 21 08/04/18 07:59 96 Room Air 21 08/04/18 05:53 143/76 08/04/18 04:00 98.1 74 19 143/76 (98) 96 08/04/18 00:00 98.3 74 20 155/67 (96) 96 08/03/18 22:20 136/87 08/03/18 21:47 94 Room Air 21 08/03/18 21:47 Room Air 21 08/03/18 21:47 70 20 Room Air 21 08/03/18 21:00 Room Air Room Air 08/03/18 20:38 74 136/87 08/03/18 20:00 98.1 74 20 136/87 (103) 98 08/03/18 17:16 72 20 98 Room Air 21 08/03/18 17:06 68 16 Room Air 21 12/27/18 17:06 96 Room Air 21 08/03/18 17:06 Room Air 21 08/03/18 17:06 68 16 96 Room Air 21 08/03/18 15:52 98.3 71 20 146/67 (93) 95 08/03/18 13:26 160/72 08/03/18 12:00 98.2 65 19 138/62 (87) 99 Intake and Output 08/03/18 08/04/18 19:00 07:00 Intake Total 810 ml 120 ml Balance 810 ml 120 ml Intake Oral 810 ml 120 ml # Voids 4 1 # Bowel Movements 1 Height (Feet): 5 Height (Inches): 2.00 Weight (Pounds): 159 General Appearance: WD/WN, no apparent distress, alert Cardiovascular: normal rate Respiratory/Chest: normal breath sounds, no respiratory distress Abdominal Exam: normal bowel sounds, non tender, soft Extremities: normal range of motion, non-tender Objective Patient has left-sided edema Lance Sosa NP Aug 04, 2018 10:52
--- NOTE | 2018-08-04 13:05 | Nephrology Progress Note ---
Assessment/Plan Problem List: (1) Acute on chronic renal failure (2) Solitary kidney (3) Diabetes mellitus (4) Hypertension (5) Diabetic neuropathy (6) Anemia Assessment 1. MICHELLE 2.CKD Absent left kidney 3.HTN ? DM 4.CHF - normal Ej Fx 5.hypocalcemia 6. Anemia of CKD 7. CVA lt weak Plan no labs today adjust BP meds- starlix increase dose Anemia beckman monitoring renal function avoid NSAID Replace electrolyte as need it per orders IV Venofer SQ EPO Subjective ROS Limited/Unobtainable: No Constitutional: Reports: malaise Objective Objective Last 24 Hour Vital Signs Date Time Temp Pulse Resp B/P (MAP) Pulse Ox O2 Delivery O2 Flow Rate FiO2 08/04/18 11:49 98.0 67 20 165/83 (110) 96 08/04/18 10:35 70 156/74 08/04/18 10:34 70 156/74 08/04/18 09:00 Room Air Room Air 08/04/18 08:06 97.9 70 19 156/74 (101) 96 08/04/18 07:59 68 18 Room Air 21 08/04/18 07:59 Room Air 21 08/04/18 07:59 96 Room Air 21 08/04/18 05:53 143/76 08/04/18 04:00 98.1 74 19 143/76 (98) 96 08/04/18 00:00 98.3 74 20 155/67 (96) 96 08/03/18 22:20 136/87 08/03/18 21:47 94 Room Air 21 08/03/18 21:47 Room Air 21 08/03/18 21:47 70 20 Room Air 21 08/03/18 21:00 Room Air Room Air 08/03/18 20:38 74 136/87 08/03/18 20:00 98.1 74 20 136/87 (103) 98 08/03/18 17:16 72 20 98 Room Air 21 08/03/18 17:06 68 16 Room Air 21 08/03/18 17:06 96 Room Air 21 08/03/18 17:06 Room Air 21 08/03/18 17:06 68 16 96 Room Air 21 08/03/18 15:52 98.3 71 20 146/67 (93) 95 08/03/18 13:26 160/72 Intake and Output 08/03/18 08/04/18 19:00 07:00 Intake Total 810 ml 120 ml Balance 810 ml 120 ml Intake Oral 810 ml 120 ml # Voids 4 1 # Bowel Movements 1 Height (Feet): 5 Height (Inches): 2.00 Weight (Pounds): 159 General Appearance: no apparent distress Objective no change Abdullahi Newby MD Aug 04, 2018 13:05
--- NOTE | 2018-08-04 14:21 | NUR ---
CASE MANAGEMENT: REVIEW SI: SOB . PLEURAL EFFUSION T 98.0 HR 67 RR 20 BP 165/83 SAT 96% ROOM AIR IS: PROCRIT SQ MWF LACTULOSE PO TID COREG PO Q12HR MED/SURG STATUS DCP: PATIENT IS FROM HOME. HOME WITH HOME HEALTH
--- NOTE | 2018-08-04 14:23 | NUR ---
INSURANCE UPDATED CLINICAL AND REVIEW FAXED TO [facility] T: [phone] OPT#2 F: [phone]
[2018-08-04] MEDS: Minoxidil 2.5mg tab ORAL PRN ×2 (15:18→21:05)
--- NOTE | 2018-08-04 16:00 | NUR ---
NURSE NOTES:VERIFIED WITH LV (CALI) RE:PENDING D/C AND AWAITING CARDIO CLEARANCE.PER CONVERSATION,SHE STATED"DR. STOKES WILL MAKE ROUNDS AT 6PM."CHARGE NURSE INFORMED.
--- NOTE | 2018-08-04 19:41 | NUR ---
HAND-OFF: Report given to BINDU FREDERICK RN.ENDORSED RE:PENDING D/C AND AWAITING DR. STOKES (CARDIO)CLEARANCE,RX,AND DME(WHEELCHAIR/BEDSIDE COMMODE)TO BE DELIVER TO PATIENTS HOUSE CONFIRMED BY LV(CM)PATIENT STABLE ON HAND OFF.
--- NOTE | 2018-08-04 19:45 | NUR ---
NURSE NOTES: Received pt in bed, A&OX4, pain level 6/10, no distress noted. IV R hand patent and intact. Safety measures maintained. Bed in low position and locked, side rails up x 2, call light within reach. Will continue to monitor.
--- NOTE | 2018-08-04 20:20 | NUR ---
NURSE NOTES: B/p 185/89, HR 80. Pt asymptomatic, denies pain , no distress noted. Will medicate for B/P.
[2018-08-04] MEDS ORDERED: Carvedilol 6.25mg Tab ONE (20:44)
[2018-08-04] MEDS: TraZODone 50mg tab ORAL SCH (20:49)
[2018-08-04] MEDS: Epogen (for non ESRD use) SUBQ SCH (20:58)
--- NOTE | 2018-08-04 20:58 | General Progress Note ---
Assessment/Plan Assessment/Plan Covering for Dr. Ravi Geiger ASSESSMENT/RECS: #. Anemia of chronic disease -- patient with ongoing kidney damage, cr is elevated appeox 2-2.5 baseline --> anemia panel has been reviewed and tsh, ferritin, tibc, esr, b12, folate, fibrinogen, iron % reviewed --> appreciate nephrology consult --> continue on epogen --> transfuse if hgb is <7 --> hemolysis w/u has been reviewed --> ON EPO SQ AND IRON IV # Leukopenia wbc in the 4-6 range --> hepatitis panel negative, hiv neg --> us abd shows borderline spleen enlargement # Acute versus chronic renal failure. as per renal etiology of acute renal failure is cardiorenal syndrome, prerenal azotemia versus unstable --> bp to improve on current meds --> nephro recs appreciated #. Coagulopathy with elevated inr --> recheck in future prn, now improved #. Congestive heart failure, but at this point the patient seems to be euvolemic. --> as per cardiology #. 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 #. Uncontrolled hypertension. --> now better #. Pleural eff s/p thora Greatly appreciate consultation Subjective Constitutional: Denies: no symptoms, chills, diaphoresis, fever, malaise, weakness, other HEENT: Denies: no symptoms, eye pain, blurred vision, tearing, double vision, ear pain, ear discharge, nose pain, nose congestion, throat pain, throat swelling, mouth pain, mouth swelling, other Cardiovascular: Denies: no symptoms, chest pain, edema, irregular heart rate, lightheadedness, palpitations, syncope, other Neurologic/Psychiatric: Denies: no symptoms, anxiety, depressed, emotional problems, headache, numbness, paresthesia, pre-existing deficit, seizure, tingling, tremors, weakness, other Hematologic/Lymphatic: Reports: no symptoms Allergies: Coded Allergies: LISINOPRIL (Verified Allergy, Unknown, 07/16/18) LOSARTAN (Verified Allergy, Unknown, 07/16/18) Subjective 08/01: no fevers, no chills, no night sweats, on epo and iron, feeling better, dc when all cleared 08/02: Pt awake and alert. Pt c/o hand swelling. H/H stable. BP elevated. 08/03: on broad spectrum antibiotics, pending clearance by cards, on epo and iron 08/04: pending cardiac clearance, potential dc soon Objective Last 24 Hour Vital Signs Date Time Temp Pulse Resp B/P (MAP) Pulse Ox O2 Delivery O2 Flow Rate FiO2 08/04/18 20:00 72 18 Room Air 21 08/04/18 18:00 176/69 (104) 08/04/18 15:18 97.6 73 19 186/87 (120) 96 08/04/18 15:18 186/87 08/04/18 13:06 165/83 08/04/18 11:49 98.0 67 20 165/83 (110) 96 08/04/18 10:35 70 156/74 08/04/18 10:34 70 156/74 08/04/18 09:00 Room Air Room Air 08/04/18 08:06 97.9 70 19 156/74 (101) 96 08/04/18 07:59 68 18 Room Air 21 08/04/18 07:59 Room Air 21 08/04/18 07:59 96 Room Air 21 08/04/18 05:53 143/76 08/04/18 04:00 98.1 74 19 143/76 (98) 96 08/04/18 00:00 98.3 74 20 155/67 (96) 96 08/03/18 22:20 136/87 08/03/18 21:47 94 Room Air 21 08/03/18 21:47 Room Air 21 08/03/18 21:47 70 20 Room Air 21 08/03/18 21:00 Room Air Room Air Intake and Output 08/03/18 08/04/18 19:00 07:00 Intake Total 810 ml 120 ml Balance 810 ml 120 ml Intake Oral 810 ml 120 ml # Voids 4 1 # Bowel Movements 1 Height (Feet): 5 Height (Inches): 2.00 Weight (Pounds): 159 General Appearance: alert Neck: normal alignment Respiratory/Chest: lungs clear Neurologic: alert Amandeep Howell MD Aug 04, 2018 20:58
--- NOTE | 2018-08-04 22:00 | NUR ---
NURSE NOTES: Re-check B/P 178/78, HR 79. Pt A&OX4, asymptomatic, denies any chest discomfort, no SOB, no distress noted. Will continue to monitor.
--- NOTE | 2018-08-04 23:00 | NUR ---
NURSE NOTES: Re-check B/P 175/80, HR 80. Pt asymptomatic, A&OX4, denies chest pain, no SOB, no distress noted. Will continue to monitor.
[2018-08-05] VITALS (7 sets, daily range): BP systolic 144–171; BP diastolic 63–80
[2018-08-05] MEDS: HydrALAZINE 25mg tab ORAL SCH ×3 (05:21→22:15)
[2018-08-05 07:12] LABS: BASOPHILS % (AUTO) 0.6 % (0.0-2.0); EOSINOPHILS % (AUTO) 3.2 % (0.0-3.0); HEMATOCRIT 26.3 % (37.0-47.0); HEMOGLOBIN 8.5 G/DL (12.0-16.0); LYMPHOCYTES % (AUTO) 25.8 % (20.0-45.0); MEAN CORPUSCULAR VOLUME 101 FL (80-99); MONOCYTES % (AUTO) 6.3 % (1.0-10.0); NEUTROPHILS % (AUTO) 64.2 % (45.0-75.0); PLATELET COUNT 185 K/UL (150-450); RED CELL DISTRIBUTION WIDTH 12.4 % (11.6-14.8); WHITE BLOOD COUNT 5.1 K/UL (4.8-10.8)
--- NOTE | 2018-08-05 07:30 | NUR ---
NURSE NOTES: Patient is in bed stable. Patient is not in any acute distress at this time. Patient denies pain or discomfort. Patient is laying down and call light within reach. All needs met at this time. Will continue to monitor.
--- NOTE | 2018-08-05 07:34 | NUR ---
HAND-OFF: Report given to JENNIFER See. Pt in stable condition.
[2018-08-05 07:50] LABS: ALANINE AMINOTRANSFERASE 41 U/L (12-78); ALBUMIN 2.5 G/DL (3.4-5.0); ALBUMIN/GLOBULIN RATIO 0.7 (1.0-2.7); ALKALINE PHOSPHATASE 85 U/L (46-116); ANION GAP 9 mmol/L (5-15); ASPARTATE AMINO TRANSFERASE 19 U/L (15-37); BILIRUBIN,TOTAL 0.2 MG/DL (0.2-1.0); BLOOD UREA NITROGEN 37 mg/dL (7-18); CALCIUM 8.5 MG/DL (8.5-10.1); CARBON DIOXIDE 22 MMOL/L (21-32); CHLORIDE 112 MMOL/L (98-107); CREATININE 2.5 MG/DL (0.55-1.30); PHOSPHORUS 3.8 MG/DL (2.5-4.9); POTASSIUM 4.3 MMOL/L (3.5-5.1); SODIUM 143 MMOL/L (136-145)
[2018-08-05] MEDS: Lactulose 10gm/15ml UDC ORAL SCH ×3 (09:00→18:00)
[2018-08-05] MEDS: Carvedilol 12.5mg tab ORAL SCH ×2 (09:20→20:44)
[2018-08-05] MEDS: Docusate 100mg cap ORAL SCH ×3 (09:20→18:04)
[2018-08-05] MEDS: Heparin 5000 units/ml inj SUBQ SCH ×2 (09:21→20:45)
--- NOTE | 2018-08-05 12:59 | Infectious Diseases Prog Note ---
Assessment/Plan Assessment/Plan Assessment SOB, worsened- ?worsening edema vs infection(pNA), s/p empiric tx -08/01 CXR" No significant change. Continued demonstration of opacity in the right hemithorax. -07/26 CXR: Improved but still extensive bilateral interstitial and airspace edema versus infiltrates Suspect increasing left pleural effusion -07/25 CXR: Cardiomegaly. Bilateral extensive infiltrates versus edema and bilateral pleural effusions -sp cx p -neg: Legionella ag urine, CrAg serum Gram positive bacteremic, -likely contamiannant -07/25 Bcx 3/4 CONS; 07/25 NTD, NTD -2d echo: no vegetatioms Moderate b/l pleural effusions -07/26 SP R thoracentesis: wbc 240, LDH 61, pH 8- transudate; cx p Afebrile No leukocytosis Recent Probable PNA, s/p Rx -07/19 CT chest: : Marked cardiomegaly. Bilateral pleural effusions. Pulmonary interstitial septal thickening, diffuse faint groundglass opacity, scattered slightly denser parenchymal opacities bilaterally. Findings most likely represent pulmonary edema. However, inflammatory etiologies are also possible. Mediastinal, possible bilateral hilar, possible left axillary lymphadenopathy. This is nonspecific, could indicate inflammatory process, lymphoproliferative disorder, metastatic lymphadenopathy among other possibilities. Splenomegaly. Suspect related to the above. Hepatomegaly -CXR: Reduced lung volumes with bibasilar infiltrates. -influenza sc neg -Bcx neg Recent Acute CHF exacerbation MICHELLE, imporved asthma HTN DM CVA w/ L side weakness NH resident Plan: -Continue to monitor off abx as clinically stable -08/02 SP IV Vancomycin #9 -08/01 SP Cefepime #7 -07/20 SP Levaquin #5 -07/15 SP Unasyn x1 -f/u sp cx (fungal, bacterial), Cocci, fungitell -Monitor CBC/C MP, temperatures -Aspiration precautions -Cards, Renal f/u Subjective Allergies: Coded Allergies: LISINOPRIL (Verified Allergy, Unknown, 07/16/18) LOSARTAN (Verified Allergy, Unknown, 07/16/18) Subjective comfortable Objective Vital Signs Last 24 Hour Vital Signs Date Time Temp Pulse Resp B/P (MAP) Pulse Ox O2 Delivery O2 Flow Rate FiO2 08/05/18 12:00 98.0 69 18 157/63 (94) 97 08/05/18 09:21 68 144/63 08/05/18 09:20 68 144/63 08/05/18 09:00 Room Air Room Air 08/05/18 08:00 98.2 68 18 144/63 (90) 98 08/05/18 05:21 153/80 08/05/18 04:00 98.1 68 153/80 (104) 08/05/18 00:00 98.9 74 156/78 (104) 08/04/18 23:00 80 175/80 (111) 08/04/18 22:00 178/78 08/04/18 22:00 79 178/78 (111) 08/04/18 21:05 185/89 08/04/18 21:05 80 185/89 08/04/18 21:00 Room Air Room Air 08/04/18 20:00 72 18 Room Air 21 08/04/18 20:00 98.5 80 20 185/89 (121) 94 08/04/18 18:00 176/69 (104) 08/04/18 15:18 97.6 73 19 186/87 (120) 96 08/04/18 15:18 186/87 08/04/18 13:06 165/83 Height (Feet): 5 Height (Inches): 2.00 Weight (Pounds): 159 HEENT: atraumatic Respiratory/Chest: no accessory muscle use Cardiovascular: regularly irregular Abdomen: no organomegaly Laboratory Tests Test 08/05/18 05:56 White Blood Count 5.1 K/UL (4.8-10.8) Red Blood Count 2.60 M/UL (4.20-5.40) L Hemoglobin 8.5 G/DL (12.0-16.0) L Hematocrit 26.3 % (37.0-47.0) L Mean Corpuscular Volume 101 FL (80-99) H Mean Corpuscular Hemoglobin 32.8 PG (27.0-31.0) H Mean Corpuscular Hemoglobin Concent 32.5 G/DL (32.0-36.0) Red Cell Distribution Width 12.4 % (11.6-14.8) Platelet Count 185 K/UL (150-450) Mean Platelet Volume 6.8 FL (6.5-10.1) Neutrophils (%) (Auto) 64.2 % (45.0-75.0) Lymphocytes (%) (Auto) 25.8 % (20.0-45.0) Monocytes (%) (Auto) 6.3 % (1.0-10.0) Eosinophils (%) (Auto) 3.2 % (0.0-3.0) H Basophils (%) (Auto) 0.6 % (0.0-2.0) Sodium Level 143 MMOL/L (136-145) Potassium Level 4.3 MMOL/L (3.5-5.1) Chloride Level 112 MMOL/L (98-107) H Carbon Dioxide Level 22 MMOL/L (21-32) Anion Gap 9 mmol/L (5-15) Blood Urea Nitrogen 37 mg/dL (7-18) H Creatinine 2.5 MG/DL (0.55-1.30) H Estimat Glomerular Filtration Rate 24.2 mL/min (>60) Glucose Level 143 MG/DL (74-106) H Uric Acid 6.2 MG/DL (2.6-7.2) Calcium Level 8.5 MG/DL (8.5-10.1) Phosphorus Level 3.8 MG/DL (2.5-4.9) Magnesium Level 2.1 MG/DL (1.8-2.4) Total Bilirubin 0.2 MG/DL (0.2-1.0) Aspartate Amino Transf (AST/SGOT) 19 U/L (15-37) Alanine Aminotransferase (ALT/SGPT) 41 U/L (12-78) Alkaline Phosphatase 85 U/L (46-116) C-Reactive Protein, Quantitative 0.5 mg/dL (0.00-0.90) Pro-B-Type Natriuretic Peptide 27049 pg/mL (0-125) H Total Protein 6.0 G/DL (6.4-8.2) L Albumin 2.5 G/DL (3.4-5.0) L Globulin 3.5 g/dL Albumin/Globulin Ratio 0.7 (1.0-2.7) L Current Medications Medications (Trade) Dose Ordered Sig/Zara Route PRN Reason Start Time Stop Time Status Last Admin Dose Admin Acetaminophen (Tylenol) 650 mg Q4H PRN ORAL fever (temp>100.5F) 07/27/18 07:15 08/24/18 07:14 Albuterol/ Ipratropium (Albuterol/ Ipratropium) 3 ml Q4H PRN HHN Shortness of Breath 08/01/18 22:15 08/06/18 22:14 08/03/18 17:06 Amlodipine Besylate (Norvasc) 10 mg DAILY ORAL 07/27/18 09:00 08/24/18 08:59 08/05/18 09:21 Atorvastatin Calcium (Lipitor) 10 mg BEDTIME ORAL 07/29/18 21:00 08/24/18 20:59 08/04/18 20:50 Carvedilol (Coreg) 37.5 mg EVERY 12 HOURS ORAL 07/27/18 09:00 08/24/18 08:59 08/05/18 09:20 Clopidogrel Bisulfate (Plavix) 75 mg DAILY ORAL 07/27/18 09:00 08/24/18 08:59 08/05/18 09:20 Docusate Sodium (Colace) 100 mg TID ORAL 07/29/18 18:00 08/28/18 08:59 08/05/18 12:43 Epoetin Yordan (Procrit (for non ESRD use)) 10,000 units TUE-TUE-TUE SUBQ 08/02/18 21:00 09/01/18 20:59 08/04/18 20:58 Gabapentin (Neurontin) 300 mg EVERY 12 HOURS ORAL 07/31/18 21:00 08/26/18 08:59 08/05/18 09:21 Heparin Sodium (Porcine) (Heparin 5000 units/ml) 5,000 units EVERY 12 HOURS SUBQ 07/27/18 09:00 08/24/18 08:59 08/05/18 09:21 Hydralazine HCl (Apresoline) 75 mg Q8HR ORAL 07/31/18 16:35 08/30/18 16:34 08/05/18 05:21 Lactulose (Cephulac) 10 gm THREE TIMES A DAY ORAL 07/30/18 09:00 08/29/18 08:59 08/03/18 17:25 Minoxidil (Loniten) 2.5 mg Q4H PRN ORAL bp over 165 syst 07/29/18 14:30 08/28/18 14:29 08/04/18 21:05 Mirtazapine (Remeron) 7.5 mg BEDTIME ORAL 07/27/18 21:00 08/24/18 20:59 08/04/18 20:50 Nateglinide (Starlix) 120 mg TIAC ORAL 08/01/18 16:30 08/30/18 16:29 08/05/18 12:43 Ondansetron HCl (Zofran) 4 mg Q6H PRN IVP Nausea & Vomiting 07/27/18 07:15 08/24/18 07:14 Oxycodone/ Acetaminophen (Percocet 10/325) 1 tab Q4H PRN ORAL Severe Pain (Pain Scale 7-10) 08/01/18 17:23 08/08/18 17:22 08/05/18 09:29 Pantoprazole (Protonix) 40 mg DAILY ORAL 07/29/18 14:30 08/28/18 14:29 08/05/18 09:21 Polyethylene Glycol (Miralax) 17 gm DAILYPRN PRN ORAL Constipation 07/27/18 07:15 08/24/18 07:14 Trazodone HCl (Desyrel) 50 mg BEDTIME ORAL 07/27/18 21:00 08/24/18 20:59 08/04/18 20:49 Jose Mariano MD Aug 05, 2018 12:59
--- NOTE | 2018-08-05 13:38 | Nephrology Progress Note ---
Assessment/Plan Problem List: (1) Acute on chronic renal failure (2) Solitary kidney (3) Diabetes mellitus (4) Hypertension (5) Diabetic neuropathy (6) Anemia Assessment 1. MICHELLE 2.CKD Absent left kidney 3.HTN ? DM 4.CHF - normal Ej Fx 5.hypocalcemia 6. Anemia of CKD 7. CVA lt weak Plan stable renal parameters adjust BP meds- starlix increase dose Anemia beckman monitoring renal function avoid NSAID Replace electrolyte as need it per orders IV Venofer SQ EPO DC planning? Subjective ROS Limited/Unobtainable: No Constitutional: Reports: malaise Objective Objective Last 24 Hour Vital Signs Date Time Temp Pulse Resp B/P (MAP) Pulse Ox O2 Delivery O2 Flow Rate FiO2 08/05/18 13:32 166/77 08/05/18 12:00 98.0 69 18 157/63 (94) 97 08/05/18 09:21 68 144/63 08/05/18 09:20 68 144/63 08/05/18 09:00 Room Air Room Air 08/05/18 08:00 98.2 68 18 144/63 (90) 98 08/05/18 05:21 153/80 08/05/18 04:00 98.1 68 153/80 (104) 08/05/18 00:00 98.9 74 156/78 (104) 08/04/18 23:00 80 175/80 (111) 08/04/18 22:00 178/78 08/04/18 22:00 79 178/78 (111) 08/04/18 21:05 185/89 08/04/18 21:05 80 185/89 08/04/18 21:00 Room Air Room Air 08/04/18 20:00 72 18 Room Air 21 08/04/18 20:00 98.5 80 20 185/89 (121) 94 08/04/18 18:00 176/69 (104) 08/04/18 15:18 97.6 73 19 186/87 (120) 96 08/04/18 15:18 186/87 Intake and Output 08/04/18 08/05/18 19:00 07:00 Intake Total 1055 ml 200 ml Balance 1055 ml 200 ml Intake Oral 1055 ml 200 ml # Voids 1 2 Laboratory Tests 08/05/18 05:56: White Blood Count 5.1, Red Blood Count 2.60L, Hemoglobin 8.5L, Hematocrit 26.3L , Mean Corpuscular Volume 101H, Mean Corpuscular Hemoglobin 32.8H, Mean Corpuscular Hemoglobin Concent 32.5, Red Cell Distribution Width 12.4, Platelet Count 185, Mean Platelet Volume 6.8, Neutrophils (%) (Auto) 64.2, Lymphocytes (% ) (Auto) 25.8, Monocytes (%) (Auto) 6.3, Eosinophils (%) (Auto) 3.2H, Basophils (%) (Auto) 0.6, Sodium Level 143, Potassium Level 4.3, Chloride Level 112H, Carbon Dioxide Level 22, Anion Gap 9, Blood Urea Nitrogen 37H, Creatinine 2.5H, Estimat Glomerular Filtration Rate 24.2, Glucose Level 143H, Uric Acid 6.2, Calcium Level 8.5, Phosphorus Level 3.8, Magnesium Level 2.1, Total Bilirubin 0.2, Aspartate Amino Transf (AST/SGOT) 19, Alanine Aminotransferase (ALT/SGPT) 41, Alkaline Phosphatase 85, C-Reactive Protein, Quantitative 0.5, Pro-B-Type Natriuretic Peptide 15145B, Total Protein 6.0L, Albumin 2.5L, Globulin 3.5, Albumin/Globulin Ratio 0.7L Height (Feet): 5 Height (Inches): 2.00 Weight (Pounds): 159 General Appearance: no apparent distress Objective no change Abdullahi Newby MD Aug 05, 2018 13:38
--- NOTE | 2018-08-05 15:20 | General Progress Note ---
Assessment/Plan Status: stable Assessment/Plan Covering for Dr. Ravi Geiger ASSESSMENT/RECS: #. Anemia of chronic disease -- patient with ongoing kidney damage, cr is elevated appeox 2-2.5 baseline --> anemia panel has been reviewed and tsh, ferritin, tibc, esr, b12, folate, fibrinogen, iron % reviewed --> appreciate nephrology consult --> continue on epogen --> transfuse if hgb is <7 --> hemolysis w/u has been reviewed --> ON EPO SQ AND IRON IV # Leukopenia wbc in the 4-6 range --> hepatitis panel negative, hiv neg --> us abd shows borderline spleen enlargement # Acute versus chronic renal failure. as per renal etiology of acute renal failure is cardiorenal syndrome, prerenal azotemia versus unstable --> bp to improve on current meds --> nephro recs appreciated #. Coagulopathy with elevated inr --> recheck in future prn, now improved #. Congestive heart failure, but at this point the patient seems to be euvolemic. --> as per cardiology #. 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 #. Uncontrolled hypertension. --> now better #. Pleural eff s/p thora Greatly appreciate consultation Subjective Date patient seen: Aug 05, 2018 Hematologic/Lymphatic: Reports: anemia Allergies: Coded Allergies: LISINOPRIL (Verified Allergy, Unknown, 07/16/18) LOSARTAN (Verified Allergy, Unknown, 07/16/18) All Systems: reviewed and negative except above Subjective 08/01: no fevers, no chills, no night sweats, on epo and iron, feeling better, dc when all cleared 08/02: Pt awake and alert. Pt c/o hand swelling. H/H stable. BP elevated. 08/03: on broad spectrum antibiotics, pending clearance by cards, on epo and iron 08/04: pending cardiac clearance, potential dc soon 08/05: Pt in stable condition. No acute events. H/H stable. Objective Last 24 Hour Vital Signs Date Time Temp Pulse Resp B/P (MAP) Pulse Ox O2 Delivery O2 Flow Rate FiO2 08/05/18 13:32 166/77 08/05/18 12:00 98.0 69 18 157/63 (94) 97 08/05/18 09:21 68 144/63 08/05/18 09:20 68 144/63 12/29/18 09:00 Room Air Room Air 08/05/18 08:20 76 18 Room Air 21 08/05/18 08:00 98.2 68 18 144/63 (90) 98 08/05/18 05:21 153/80 08/05/18 04:00 98.1 68 153/80 (104) 08/05/18 00:00 98.9 74 156/78 (104) 08/04/18 23:00 80 175/80 (111) 08/04/18 22:00 178/78 08/04/18 22:00 79 178/78 (111) 08/04/18 21:05 185/89 08/04/18 21:05 80 185/89 08/04/18 21:00 Room Air Room Air 08/04/18 20:00 72 18 Room Air 21 08/04/18 20:00 98.5 80 20 185/89 (121) 94 08/04/18 18:00 176/69 (104) Intake and Output 08/04/18 08/05/18 19:00 07:00 Intake Total 1055 ml 200 ml Balance 1055 ml 200 ml Intake Oral 1055 ml 200 ml # Voids 1 2 Laboratory Tests 08/05/18 05:56: White Blood Count 5.1, Red Blood Count 2.60L, Hemoglobin 8.5L, Hematocrit 26.3L , Mean Corpuscular Volume 101H, Mean Corpuscular Hemoglobin 32.8H, Mean Corpuscular Hemoglobin Concent 32.5, Red Cell Distribution Width 12.4, Platelet Count 185, Mean Platelet Volume 6.8, Neutrophils (%) (Auto) 64.2, Lymphocytes (% ) (Auto) 25.8, Monocytes (%) (Auto) 6.3, Eosinophils (%) (Auto) 3.2H, Basophils (%) (Auto) 0.6, Sodium Level 143, Potassium Level 4.3, Chloride Level 112H, Carbon Dioxide Level 22, Anion Gap 9, Blood Urea Nitrogen 37H, Creatinine 2.5H, Estimat Glomerular Filtration Rate 24.2, Glucose Level 143H, Uric Acid 6.2, Calcium Level 8.5, Phosphorus Level 3.8, Magnesium Level 2.1, Total Bilirubin 0.2, Aspartate Amino Transf (AST/SGOT) 19, Alanine Aminotransferase (ALT/SGPT) 41, Alkaline Phosphatase 85, C-Reactive Protein, Quantitative 0.5, Pro-B-Type Natriuretic Peptide 20607V, Total Protein 6.0L, Albumin 2.5L, Globulin 3.5, Albumin/Globulin Ratio 0.7L Height (Feet): 5 Height (Inches): 2.00 Weight (Pounds): 159 Amandeep Howell MD Aug 05, 2018 15:20
--- NOTE | 2018-08-05 15:31 | NUR ---
NURSE NOTES: Dr. Zee cleared patient for discharge from cardio standpoint. Notified Dr. Howell who agreed and gave orders to discharge patient. Patient and daughter made aware.
--- NOTE | 2018-08-05 16:45 | NUR ---
NURSE NOTES: Postponed patient's discharge as advised by Dr. Howell. Spoke to [facility] mental health case manager Luciana and notified her of discharge plan. Luciana will follow up with patient's mental health case manager. Patient made aware.
--- NOTE | 2018-08-05 19:44 | NUR ---
HAND-OFF: Report given to Tyler RODRIGUEZ. Patient is stable.
--- NOTE | 2018-08-05 19:45 | NUR ---
NURSE NOTES: Received report from JENNIFER See. Received pt lying in bed, A&OX4, denies pain, no distress noted. Bed in low position and locked, side rails up x 2, call light within reach. Will continue to monitor.
--- NOTE | 2018-08-05 20:30 | NUR ---
NURSE NOTES: IV came out on R hand. D/C per protocol. Applied 2x2 gauze and tape.
[2018-08-05] MEDS: TraZODone 50mg tab ORAL SCH (20:43)
[2018-08-06] VITALS: BP 147/65
[2018-08-06 04:00] VITALS: BP 143/63
[2018-08-06] MEDS: HydrALAZINE 25mg tab ORAL SCH ×3 (05:24→22:09)
--- NOTE | 2018-08-06 07:20 | NUR ---
HAND-OFF: Report given to JENNIFER Garcia. Pt in stable condition.
--- NOTE | 2018-08-06 07:30 | NUR ---
NURSE NOTES: Patient is in bed awake and able to verbalize needs. Patient is stable with no s/s acute distress. Patient sami Addendum: 08/06/18 at 0819 by DERICK LUTZ RN Patient denies pain or SOB at this time. Patient is in bed and call light within reach. All safety measures provided, all needs met at this time. Will continue to monitor.
[2018-08-06 08:00] VITALS: BP 149/78
[2018-08-06] MEDS: Lactulose 10gm/15ml UDC ORAL SCH ×3 (09:00→17:56)
[2018-08-06] MEDS: Carvedilol 12.5mg tab ORAL SCH ×2 (09:25→20:28)
[2018-08-06] MEDS: Docusate 100mg cap ORAL SCH ×4 (09:26→17:38)
[2018-08-06] MEDS: Heparin 5000 units/ml inj SUBQ SCH ×2 (09:27→20:32)
--- NOTE | 2018-08-06 10:28 | Nephrology Progress Note ---
Assessment/Plan Problem List: (1) Acute on chronic renal failure (2) Solitary kidney (3) Diabetes mellitus (4) Hypertension (5) Diabetic neuropathy (6) Anemia Assessment 1. MICHELLE 2.CKD Absent left kidney 3.HTN ? DM 4.CHF - normal Ej Fx 5.hypocalcemia 6. Anemia of CKD 7. CVA lt weak Plan stable renal parameters adjust BP meds- starlix increase dose Anemia beckmna monitoring renal function avoid NSAID Replace electrolyte as need it per orders IV Venofer SQ EPO DC planning? Subjective ROS Limited/Unobtainable: No Objective Objective Last 24 Hour Vital Signs Date Time Temp Pulse Resp B/P (MAP) Pulse Ox O2 Delivery O2 Flow Rate FiO2 08/06/18 09:26 69 149/78 08/06/18 09:25 69 149/78 08/06/18 08:00 97.9 69 16 149/78 (101) 96 08/06/18 05:24 143/63 08/06/18 04:00 98.0 68 18 143/63 (89) 99 08/06/18 00:00 98.7 72 18 147/65 (92) 97 08/05/18 22:15 163/72 08/05/18 22:00 72 163/72 (102) 08/05/18 21:00 Room Air Room Air 08/05/18 20:44 70 171/75 08/05/18 20:00 98.8 70 20 171/75 (107) 95 08/05/18 19:30 70 18 Room Air 21 08/05/18 16:00 98.2 70 18 154/70 (98) 98 08/05/18 13:32 166/77 08/05/18 12:00 98.0 69 18 157/63 (94) 97 Intake and Output 08/05/18 08/06/18 19:00 07:00 Intake Total 1400 ml 240 ml Balance 1400 ml 240 ml Intake Oral 1400 ml 240 ml # Voids 1 Current Medications Medications (Trade) Dose Ordered Sig/Zara Route PRN Reason Start Time Stop Time Status Last Admin Dose Admin Acetaminophen (Tylenol) 650 mg Q4H PRN ORAL fever (temp>100.5F) 07/27/18 07:15 08/24/18 07:14 Albuterol/ Ipratropium (Albuterol/ Ipratropium) 3 ml Q4H PRN HHN Shortness of Breath 12/25/18 22:15 08/06/18 22:14 08/03/18 17:06 Amlodipine Besylate (Norvasc) 10 mg DAILY ORAL 07/27/18 09:00 08/24/18 08:59 08/06/18 09:26 Atorvastatin Calcium (Lipitor) 10 mg BEDTIME ORAL 07/29/18 21:00 08/24/18 20:59 08/05/18 20:44 Carvedilol (Coreg) 37.5 mg EVERY 12 HOURS ORAL 07/27/18 09:00 08/24/18 08:59 08/06/18 09:25 Clopidogrel Bisulfate (Plavix) 75 mg DAILY ORAL 07/27/18 09:00 08/24/18 08:59 08/06/18 09:25 Docusate Sodium (Colace) 100 mg TID ORAL 07/29/18 18:00 08/28/18 08:59 08/06/18 09:26 Epoetin Yordan (Procrit (for non ESRD use)) 10,000 units TUE-TUE-TUE SUBQ 08/02/18 21:00 09/01/18 20:59 08/04/18 20:58 Gabapentin (Neurontin) 300 mg EVERY 12 HOURS ORAL 07/31/18 21:00 08/26/18 08:59 08/06/18 09:26 Heparin Sodium (Porcine) (Heparin 5000 units/ml) 5,000 units EVERY 12 HOURS SUBQ 07/27/18 09:00 08/24/18 08:59 08/06/18 09:27 Hydralazine HCl (Apresoline) 75 mg Q8HR ORAL 07/31/18 16:35 08/30/18 16:34 08/06/18 05:24 Lactulose (Cephulac) 10 gm THREE TIMES A DAY ORAL 07/30/18 09:00 08/29/18 08:59 08/03/18 17:25 Minoxidil (Loniten) 2.5 mg Q4H PRN ORAL bp over 165 syst 07/29/18 14:30 08/28/18 14:29 08/04/18 21:05 Mirtazapine (Remeron) 7.5 mg BEDTIME ORAL 07/27/18 21:00 08/24/18 20:59 08/05/18 20:43 Nateglinide (Starlix) 120 mg TIAC ORAL 08/01/18 16:30 08/30/18 16:29 08/06/18 06:04 Ondansetron HCl (Zofran) 4 mg Q6H PRN IVP Nausea & Vomiting 07/27/18 07:15 08/24/18 07:14 Oxycodone/ Acetaminophen (Percocet 10/325) 1 tab Q4H PRN ORAL Severe Pain (Pain Scale 7-10) 08/01/18 17:23 08/08/18 17:22 08/06/18 09:31 Pantoprazole (Protonix) 40 mg DAILY ORAL 07/29/18 14:30 08/28/18 14:29 08/06/18 09:26 Polyethylene Glycol (Miralax) 17 gm DAILYPRN PRN ORAL Constipation 07/27/18 07:15 08/24/18 07:14 Trazodone HCl (Desyrel) 50 mg BEDTIME ORAL 07/27/18 21:00 08/24/18 20:59 08/05/18 20:43 Height (Feet): 5 Height (Inches): 2.00 Weight (Pounds): 159 General Appearance: no apparent distress Objective no change Abdullahi Newby MD Aug 06, 2018 10:28
--- NOTE | 2018-08-06 12:45 | General Progress Note ---
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 An RX for Percocet 7.5/325mg PO 1 tab Q6-8H PRN 20 tabs was sent top patients pharmacy of choice. D/w Dr. Hagen and he concurred. Subjective Date patient seen: Aug 06, 2018 Time patient seen: 11:15 - am Allergies: Coded Allergies: LISINOPRIL (Verified Allergy, Unknown, 07/16/18) LOSARTAN (Verified Allergy, Unknown, 07/16/18) Subjective REVIEW OF SYSTEMS: Denies rash, fever, chills, sweating, dizziness, drowsiness, blurred vision, sore throat, change in her weight. No shortness of breath at this time. No chest pain, palpitations, or cough. No nausea, vomiting, diarrhea, or blood in the stool or urine. No bowel or bladder incontinence. She is complaining of generalized body pain. SUBJECTIVE: Patient in bed showing no signs of pain or distress. Pain has been tolerated on the Percocet. She has no new complaints at this time. Objective Last 24 Hour Vital Signs Date Time Temp Pulse Resp B/P (MAP) Pulse Ox O2 Delivery O2 Flow Rate FiO2 08/06/18 09:26 69 149/78 08/06/18 09:25 69 149/78 08/06/18 09:00 Room Air Room Air 08/06/18 08:03 73 18 Room Air 21 08/06/18 08:00 97.9 69 16 149/78 (101) 96 08/06/18 05:24 143/63 08/06/18 04:00 98.0 68 18 143/63 (89) 99 08/06/18 00:00 98.7 72 18 147/65 (92) 97 08/05/18 22:15 163/72 08/05/18 22:00 72 163/72 (102) 08/05/18 21:00 Room Air Room Air 08/05/18 20:44 70 171/75 08/05/18 20:00 98.8 70 20 171/75 (107) 95 08/05/18 19:30 70 18 Room Air 21 08/05/18 16:00 98.2 70 18 154/70 (98) 98 08/05/18 13:32 166/77 Intake and Output 08/05/18 08/06/18 19:00 07:00 Intake Total 1400 ml 240 ml Balance 1400 ml 240 ml Intake Oral 1400 ml 240 ml # Voids 1 Height (Feet): 5 Height (Inches): 2.00 Weight (Pounds): 159 Objective GENERAL: Alert, awake, and oriented. LUNGS: Decreased breath sounds bilaterally. HEART: S1 and S2 regular. ABDOMEN: Benign. EXTREMITIES: No cyanosis. No clubbing. NEURO: No changes. Kwabena Verduzco Aug 06, 2018 12:45
--- NOTE | 2018-08-06 13:30 | NUR ---
NURSE NOTES: Patient took a shower with assistance, tolerated well. All safety measures provided. Patient transferred back to bed, tolerated well. Call light within reach. WIll continue to monitor.
--- NOTE | 2018-08-06 13:49 | General Progress Note ---
Assessment/Plan Assessment/Plan Covering for Dr. Ravi Geiger ASSESSMENT/RECS: #. Anemia of chronic disease -- patient with ongoing kidney damage, cr is elevated appeox 2-2.5 baseline --> anemia panel has been reviewed and tsh, ferritin, tibc, esr, b12, folate, fibrinogen, iron % reviewed --> appreciate nephrology consult --> continue on epogen --> transfuse if hgb is <7 --> hemolysis w/u has been reviewed --> trend hgb 8.9-->8.4-->8.5 --> ON EPO SQ AND IRON IV # Leukopenia wbc in the 4-6 range --> hepatitis panel negative, hiv neg --> us abd shows borderline spleen enlargement # Acute versus chronic renal failure. as per renal etiology of acute renal failure is cardiorenal syndrome, prerenal azotemia versus unstable --> bp to improve on current meds --> nephro recs appreciated #. Coagulopathy with elevated inr --> recheck in future prn, now improved #. Congestive heart failure, but at this point the patient seems to be euvolemic. --> as per cardiology #. 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 #. Uncontrolled hypertension. --> now better #. Pleural eff s/p thora Greatly appreciate consultation Subjective Constitutional: Denies: no symptoms, chills, diaphoresis, fever, malaise, weakness, other HEENT: Denies: no symptoms, eye pain, blurred vision, tearing, double vision, ear pain, ear discharge, nose pain, nose congestion, throat pain, throat swelling, mouth pain, mouth swelling, other Cardiovascular: Denies: no symptoms, chest pain, edema, irregular heart rate, lightheadedness, palpitations, syncope, other Respiratory: Denies: no symptoms, cough, orthopnea, shortness of breath, SOB with excertion, SOB at rest, sputum, stridor, wheezing, other Gastrointestinal/Abdominal: Denies: no symptoms, abdomen distended, abdominal pain, black stools, tarry stools, blood in stool, constipated, diarrhea, difficulty swallowing, nausea, poor appetite, poor fluid intake, rectal bleeding , vomiting, other Genitourinary: Denies: no symptoms, burning, discharge, frequency, flank pain, hematuria, incontinence, pain, urgency, other Neurologic/Psychiatric: Denies: no symptoms, anxiety, depressed, emotional problems, headache, numbness, paresthesia, pre-existing deficit, seizure, tingling, tremors, weakness, other Endocrine: Denies: no symptoms, excessive sweating, flushing, intolerance to cold, intolerance to heat, increased hunger, increased thirst, increased urine, unexplained weight gain, unexplained weight loss, other Hematologic/Lymphatic: Denies: no symptoms, anemia, easy bleeding, easy bruising, other Allergies: Coded Allergies: LISINOPRIL (Verified Allergy, Unknown, 07/16/18) LOSARTAN (Verified Allergy, Unknown, 07/16/18) Subjective 08/01: no fevers, no chills, no night sweats, on epo and iron, feeling better, dc when all cleared 08/02: Pt awake and alert. Pt c/o hand swelling. H/H stable. BP elevated. 08/03: on broad spectrum antibiotics, pending clearance by cards, on epo and iron 08/04: pending cardiac clearance, potential dc soon 08/05: Pt in stable condition. No acute events. H/H stable. 08/06: no events, no fevers, no chills, on percocet, seen by ID, pain management and recs reviewed Objective Last 24 Hour Vital Signs Date Time Temp Pulse Resp B/P (MAP) Pulse Ox O2 Delivery O2 Flow Rate FiO2 08/06/18 09:26 69 149/78 08/06/18 09:25 69 149/78 08/06/18 09:00 Room Air Room Air 08/06/18 08:03 73 18 Room Air 21 08/06/18 08:00 97.9 69 16 149/78 (101) 96 08/06/18 05:24 143/63 08/06/18 04:00 98.0 68 18 143/63 (89) 99 08/06/18 00:00 98.7 72 18 147/65 (92) 97 08/05/18 22:15 163/72 08/05/18 22:00 72 163/72 (102) 08/05/18 21:00 Room Air Room Air 08/05/18 20:44 70 171/75 08/05/18 20:00 98.8 70 20 171/75 (107) 95 08/05/18 19:30 70 18 Room Air 21 08/05/18 16:00 98.2 70 18 154/70 (98) 98 Intake and Output 08/05/18 08/06/18 19:00 07:00 Intake Total 1400 ml 240 ml Balance 1400 ml 240 ml Intake Oral 1400 ml 240 ml # Voids 1 Height (Feet): 5 Height (Inches): 2.00 Weight (Pounds): 159 General Appearance: confused Cardiovascular: regular rhythm Respiratory/Chest: lungs clear Abdomen: abnormal bowel sounds Extremities: non-tender Edema: mild edema Neurologic: oriented x 3 Skin: warm/dry Amandeep Howell MD Aug 06, 2018 13:49
[2018-08-06 15:11] VITALS: BP 149/65
--- NOTE | 2018-08-06 15:15 | General Progress Note ---
Assessment/Plan Problem List: (1) Pleural effusion ICD Codes: J90 - Pleural effusion, not elsewhere classified SNOMED: 69699375 (2) Anemia ICD Codes: D64.9 - Anemia, unspecified SNOMED: 799194480 (3) Hypertension ICD Codes: I10 - Essential (primary) hypertension SNOMED: 44322501 (4) Diabetic neuropathy ICD Codes: E11.40 - Type 2 diabetes mellitus with diabetic neuropathy, unspecified SNOMED: 18449968, 299147011, 692394527 (5) Pneumonia ICD Codes: J18.9 - Pneumonia, unspecified organism SNOMED: 253870208 (6) Cardiomegaly ICD Codes: I51.7 - Cardiomegaly SNOMED: 3629131 (7) Asthma ICD Codes: J45.909 - Unspecified asthma, uncomplicated SNOMED: 754214622 (8) Moderate pulmonary arterial systolic hypertension ICD Codes: I27.21 - Secondary pulmonary arterial hypertension SNOMED: 91418694 (9) Solitary kidney ICD Codes: Q60.0 - Renal agenesis, unilateral SNOMED: 759105419 Status: progressing Assessment/Plan afebrile no wheezing vitals stable cardiomegaly asthma is stable reviewed chart and labs Subjective ROS Limited/Unobtainable: Yes Allergies: Coded Allergies: LISINOPRIL (Verified Allergy, Unknown, 07/16/18) LOSARTAN (Verified Allergy, Unknown, 07/16/18) Objective Last 24 Hour Vital Signs Date Time Temp Pulse Resp B/P (MAP) Pulse Ox O2 Delivery O2 Flow Rate FiO2 08/06/18 15:11 98.5 66 18 149/65 (93) 98 08/06/18 14:11 149/65 08/06/18 09:26 69 149/78 08/06/18 09:25 69 149/78 08/06/18 09:00 Room Air Room Air 08/06/18 08:03 73 18 Room Air 21 08/06/18 08:00 97.9 69 16 149/78 (101) 96 08/06/18 05:24 143/63 08/06/18 04:00 98.0 68 18 143/63 (89) 99 08/06/18 00:00 98.7 72 18 147/65 (92) 97 08/05/18 22:15 163/72 12/29/18 22:00 72 163/72 (102) 08/05/18 21:00 Room Air Room Air 08/05/18 20:44 70 171/75 08/05/18 20:00 98.8 70 20 171/75 (107) 95 08/05/18 19:30 70 18 Room Air 21 08/05/18 16:00 98.2 70 18 154/70 (98) 98 Intake and Output 08/05/18 08/06/18 19:00 07:00 Intake Total 1400 ml 240 ml Balance 1400 ml 240 ml Intake Oral 1400 ml 240 ml # Voids 1 Height (Feet): 5 Height (Inches): 2.00 Weight (Pounds): 159 Cardiovascular: normal rate Respiratory/Chest: lungs clear Abdomen: soft Eligio Neumann MD Aug 06, 2018 15:15
--- NOTE | 2018-08-06 19:27 | NUR ---
HAND-OFF: Report given to All RODRIGUEZ. Patient is stable.
--- NOTE | 2018-08-06 19:28 | NUR ---
NURSE NOTES: Report taken from JENNIFER Garcia. Patient alert and oriented in bed. On room air. No signs of distress or complaints of pain. Minor swelling on her left side. No IV site. Patient awaiting discharge. Bed in lowest position, call light within reach.
[2018-08-06 20:00] VITALS: BP 144/82
[2018-08-06] MEDS: TraZODone 50mg tab ORAL SCH (20:26)
--- NOTE | 2018-08-06 20:32 | NUR ---
CASE MANAGEMENT: REVIEW 08/05/2018 SI: SOB . PLEURAL EFFUSION T 98.8 HR 70 RR 20 B/P 171/75 SATS 95% ON RA CL 112 BUN 37 CR 2.5 GLU 143 BNP 18036 IS: PROCRIT SQ MWF LACTULOSE PO TID COREG PO Q12HR MED/SURG STATUS DCP: PATIENT IS FROM HOME. HOME WITH HOME HEALTH 08/06/2018 SI: SOB . PLEURAL EFFUSION T 98.5 HR 66 RR 18 B/P 149/65 SATS 98% ON RA NO LABS TODAY IS: PROCRIT SQ MWF LACTULOSE PO TID COREG PO Q12HR MED/SURG STATUS DCP: PATIENT IS FROM HOME. HOME WITH HOME HEALTH
--- NOTE | 2018-08-06 23:53 | Cardiology Progress Note ---
Assessment/Plan Assessment/Plan 1. Dyspnea most likely secondary to bilateral pleural effusion, status post right thoracentesis yielding about 500 mL of fluid. 2D echocardiography July 17, 2018 showed normal LV systolic and diastolic function with LVEF of approximately 55%. Continue IV antibiotics, pulmonary toilet, and diuretic therapy. 2. Moderate pulmonary hypertension. 3. Stage 5 CKD. 2D echocardiography has shown small pericardial effusion. 4. Anemia, possible chronic kidney disease. 5. History of CVA with left hemiparesis, consider aspirin and statins. Subjective Subjective No cardiac events noted. Objective Last 24 Hour Vital Signs Date Time Temp Pulse Resp B/P (MAP) Pulse Ox O2 Delivery O2 Flow Rate FiO2 08/06/18 22:09 173/77 08/06/18 21:00 Room Air Room Air 08/06/18 20:28 76 144/82 08/06/18 20:11 73 16 Room Air 21 08/06/18 20:00 98.0 76 18 144/82 (102) 99 08/06/18 15:11 98.5 66 18 149/65 (93) 98 08/06/18 14:11 149/65 08/06/18 09:26 69 149/78 08/06/18 09:25 69 149/78 08/06/18 09:00 Room Air Room Air 08/06/18 08:03 73 18 Room Air 21 08/06/18 08:00 97.9 69 16 149/78 (101) 96 08/06/18 05:24 143/63 08/06/18 04:00 98.0 68 18 143/63 (89) 99 08/06/18 00:00 98.7 72 18 147/65 (92) 97 Intake and Output 08/05/18 08/06/18 19:00 07:00 Intake Total 1400 ml 240 ml Balance 1400 ml 240 ml Intake Oral 1400 ml 240 ml # Voids 1 2D Echo: LVEF 65%, Mild MR, Normal LVD, RVSP 56mmHg Objective HEENT: Atraumatic and normocephalic. Anicteric. Pupils are equal, round, and reactive to light and accommodation. Extraocular muscles intact. NECK: JVP less than 5 cm. No carotid bruit. Carotid upstrokes 2+ bilaterally. LUNGS: Bilateral lower lung crackles. Diminished breath sounds on both lungs and the bases. CARDIOVASCULAR: Normal S1, S2. Regular rate and rhythm. No murmurs, gallops, or rubs. Tachycardic. ABDOMEN: Soft, nontender, and nondistended. No hepatosplenomegaly. Positive bowel sounds. EXTREMITIES: No evidence of edema, clubbing, or cyanosis. Kwesi Zee MD Aug 06, 2018 23:53
[2018-08-07] VITALS: BP 152/66
[2018-08-07 04:00] VITALS: BP 150/80
[2018-08-07] MEDS: HydrALAZINE 25mg tab ORAL SCH ×2 (06:02→14:39)
--- NOTE | 2018-08-07 07:30 | NUR ---
NURSE NOTES: Patient is in bed awake and able to verbalize needs. Patient is stable and denies pain at this time. No s/s acute distress noted. Patient is in bed in locked position and call light within reach. All needs met at this time. WIll continue to monitor.
--- NOTE | 2018-08-07 07:51 | Infectious Diseases Prog Note ---
Assessment/Plan Assessment/Plan SOB, worsened- ?worsening edema vs infection(pNA), s/p empiric tx -08/01 CXR" No significant change. Continued demonstration of opacity in the right hemithorax. -07/26 CXR: Improved but still extensive bilateral interstitial and airspace edema versus infiltrates Suspect increasing left pleural effusion -07/25 CXR: Cardiomegaly. Bilateral extensive infiltrates versus edema and bilateral pleural effusions -sp cx p -neg: Legionella ag urine, CrAg serum Gram positive bacteremic, -likely contamiannant -07/25 Bcx 3/4 CONS; 07/25 NTD, NTD -2d echo: no vegetatioms Moderate b/l pleural effusions -07/26 SP R thoracentesis: wbc 240, LDH 61, pH 8- transudate; cx p Afebrile No leukocytosis Recent Probable PNA, s/p Rx -07/19 CT chest: : Marked cardiomegaly. Bilateral pleural effusions. Pulmonary interstitial septal thickening, diffuse faint groundglass opacity, scattered slightly denser parenchymal opacities bilaterally. Findings most likely represent pulmonary edema. However, inflammatory etiologies are also possible. Mediastinal, possible bilateral hilar, possible left axillary lymphadenopathy. This is nonspecific, could indicate inflammatory process, lymphoproliferative disorder, metastatic lymphadenopathy among other possibilities. Splenomegaly. Suspect related to the above. Hepatomegaly -CXR: Reduced lung volumes with bibasilar infiltrates. -influenza sc neg -Bcx neg Recent Acute CHF exacerbation MICHELLE, imporved asthma HTN DM CVA w/ L side weakness NH resident Plan: -Continue to monitor off abx -08/02 SP IV Vancomycin #9 -08/01 SP Cefepime #7 -07/20 SP Levaquin #5 -07/15 SP Unasyn x1 -Monitor CBC/C MP, temperatures -Aspiration precautions -Cards, Renal f/u Subjective Allergies: Coded Allergies: LISINOPRIL (Verified Allergy, Unknown, 07/16/18) LOSARTAN (Verified Allergy, Unknown, 07/16/18) Subjective No complaints Afebrile No Leukocytosis Satting well on RA Objective Vital Signs Last 24 Hour Vital Signs Date Time Temp Pulse Resp B/P (MAP) Pulse Ox O2 Delivery O2 Flow Rate FiO2 08/07/18 06:02 141/85 08/07/18 04:00 98.2 66 16 150/80 (103) 98 08/07/18 00:00 98.4 73 18 152/66 (94) 97 08/06/18 22:09 173/77 08/06/18 21:00 Room Air Room Air 08/06/18 20:28 76 144/82 08/06/18 20:11 73 16 Room Air 21 08/06/18 20:00 98.0 76 18 144/82 (102) 99 08/06/18 15:11 98.5 66 18 149/65 (93) 98 08/06/18 14:11 149/65 08/06/18 09:26 69 149/78 08/06/18 09:25 69 149/78 08/06/18 09:00 Room Air Room Air 08/06/18 08:03 73 18 Room Air 21 08/06/18 08:00 97.9 69 16 149/78 (101) 96 Height (Feet): 5 Height (Inches): 2.00 Weight (Pounds): 159 Objective GENERAL: Calm in bed CARDIOVASCULAR: RRR, No murmur. LUNGS: Course B/L, ABDOMEN: Soft, ND, Bowel sounds distant. NEUROLOGIC: The patient moves all extremities, slightly weak Current Medications Medications (Trade) Dose Ordered Sig/Zara Route PRN Reason Start Time Stop Time Status Last Admin Dose Admin Acetaminophen (Tylenol) 650 mg Q4H PRN ORAL fever (temp>100.5F) 07/27/18 07:15 08/24/18 07:14 Amlodipine Besylate (Norvasc) 10 mg DAILY ORAL 07/27/18 09:00 08/24/18 08:59 08/06/18 09:26 Atorvastatin Calcium (Lipitor) 10 mg BEDTIME ORAL 07/29/18 21:00 08/24/18 20:59 08/06/18 20:27 Carvedilol (Coreg) 37.5 mg EVERY 12 HOURS ORAL 07/27/18 09:00 08/24/18 08:59 08/06/18 20:28 Clopidogrel Bisulfate (Plavix) 75 mg DAILY ORAL 07/27/18 09:00 08/24/18 08:59 08/06/18 09:25 Docusate Sodium (Colace) 100 mg TID ORAL 07/29/18 18:00 08/28/18 08:59 08/06/18 17:38 Epoetin Yordan (Procrit (for non ESRD use)) 10,000 units TUE-TUE-TUE SUBQ 08/02/18 21:00 09/01/18 20:59 08/04/18 20:58 Gabapentin (Neurontin) 300 mg EVERY 12 HOURS ORAL 07/31/18 21:00 08/26/18 08:59 08/06/18 20:27 Heparin Sodium (Porcine) (Heparin 5000 units/ml) 5,000 units EVERY 12 HOURS SUBQ 07/27/18 09:00 08/24/18 08:59 08/06/18 20:32 Hydralazine HCl (Apresoline) 75 mg Q8HR ORAL 07/31/18 16:35 08/30/18 16:34 08/07/18 06:02 Lactulose (Cephulac) 10 gm THREE TIMES A DAY ORAL 07/30/18 09:00 08/29/18 08:59 08/03/18 17:25 Minoxidil (Loniten) 2.5 mg Q4H PRN ORAL bp over 165 syst 07/29/18 14:30 08/28/18 14:29 08/04/18 21:05 Mirtazapine (Remeron) 7.5 mg BEDTIME ORAL 07/27/18 21:00 08/24/18 20:59 08/06/18 20:28 Nateglinide (Starlix) 120 mg TIAC ORAL 08/01/18 16:30 08/30/18 16:29 08/07/18 06:02 Ondansetron HCl (Zofran) 4 mg Q6H PRN IVP Nausea & Vomiting 07/27/18 07:15 08/24/18 07:14 Oxycodone/ Acetaminophen (Percocet 10/325) 1 tab Q4H PRN ORAL Severe Pain (Pain Scale 7-10) 08/01/18 17:23 08/08/18 17:22 08/06/18 22:14 Pantoprazole (Protonix) 40 mg DAILY ORAL 07/29/18 14:30 08/28/18 14:29 08/06/18 09:26 Polyethylene Glycol (Miralax) 17 gm DAILYPRN PRN ORAL Constipation 07/27/18 07:15 08/24/18 07:14 Trazodone HCl (Desyrel) 50 mg BEDTIME ORAL 07/27/18 21:00 08/24/18 20:59 08/06/18 20:26 Hilton Masters MD Aug 07, 2018 07:51
[2018-08-07 08:00] VITALS: BP 162/73
[2018-08-07] MEDS: Lactulose 10gm/15ml UDC ORAL SCH ×2 (09:00→13:00)
--- NOTE | 2018-08-07 09:07 | General Progress Note ---
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 D/w Dr. Hagen and he concurred. Subjective Date patient seen: Aug 07, 2018 Time patient seen: 07:00 - am Allergies: Coded Allergies: LISINOPRIL (Verified Allergy, Unknown, 07/16/18) LOSARTAN (Verified Allergy, Unknown, 07/16/18) Subjective REVIEW OF SYSTEMS: Denies rash, fever, chills, sweating, dizziness, drowsiness, blurred vision, sore throat, change in her weight. No shortness of breath at this time. No chest pain, palpitations, or cough. No nausea, vomiting, diarrhea, or blood in the stool or urine. No bowel or bladder incontinence. She is complaining of generalized body pain. SUBJECTIVE: Patient showing no signs of pain or distress. Her pain has been tolerated on the Percocet 4 doses in the last 24hrs. She has no new complaints at this time. Objective Last 24 Hour Vital Signs Date Time Temp Pulse Resp B/P (MAP) Pulse Ox O2 Delivery O2 Flow Rate FiO2 08/07/18 06:02 141/85 08/07/18 04:00 98.2 66 16 150/80 (103) 98 08/07/18 00:00 98.4 73 18 152/66 (94) 97 08/06/18 22:09 173/77 08/06/18 21:00 Room Air Room Air 08/06/18 20:28 76 144/82 08/06/18 20:11 73 16 Room Air 21 08/06/18 20:00 98.0 76 18 144/82 (102) 99 08/06/18 15:11 98.5 66 18 149/65 (93) 98 08/06/18 14:11 149/65 08/06/18 09:26 69 149/78 08/06/18 09:25 69 149/78 Intake and Output 08/06/18 08/07/18 18:59 06:59 Intake Total 1240 ml 700 ml Balance 1240 ml 700 ml Intake Oral 1240 ml 700 ml # Voids 4 Height (Feet): 5 Height (Inches): 2.00 Weight (Pounds): 159 Objective GENERAL: Alert, awake, and oriented. LUNGS: Decreased breath sounds bilaterally. HEART: S1 and S2 regular. ABDOMEN: Benign. EXTREMITIES: No cyanosis. No clubbing. NEURO: No changes. Kwabena Verduzco Aug 07, 2018 09:07
[2018-08-07] MEDS: Carvedilol 12.5mg tab ORAL SCH (09:14)
[2018-08-07] MEDS: Docusate 100mg cap ORAL SCH ×2 (09:14→13:43)
[2018-08-07] MEDS: Heparin 5000 units/ml inj SUBQ SCH (09:17)
--- NOTE | 2018-08-07 11:29 | General Progress Note ---
Assessment/Plan Problem List: (1) Pleural effusion ICD Codes: J90 - Pleural effusion, not elsewhere classified SNOMED: 72390778 (2) Anemia ICD Codes: D64.9 - Anemia, unspecified SNOMED: 809654231 (3) Hypertension ICD Codes: I10 - Essential (primary) hypertension SNOMED: 92809494 (4) Diabetic neuropathy ICD Codes: E11.40 - Type 2 diabetes mellitus with diabetic neuropathy, unspecified SNOMED: 96430314, 803537657, 651726807 (5) Pneumonia ICD Codes: J18.9 - Pneumonia, unspecified organism SNOMED: 488606488 (6) Cardiomegaly ICD Codes: I51.7 - Cardiomegaly SNOMED: 2484169 (7) Asthma ICD Codes: J45.909 - Unspecified asthma, uncomplicated SNOMED: 992702233 (8) Moderate pulmonary arterial systolic hypertension ICD Codes: I27.21 - Secondary pulmonary arterial hypertension SNOMED: 61390062 (9) Solitary kidney ICD Codes: Q60.0 - Renal agenesis, unilateral SNOMED: 415294946 Status: progressing Assessment/Plan once consultants clear her will dc .most likely dc today cardiomegaly asthma is stable reviewed chart and labs afebrile Subjective ROS Limited/Unobtainable: Yes Allergies: Coded Allergies: LISINOPRIL (Verified Allergy, Unknown, 07/16/18) LOSARTAN (Verified Allergy, Unknown, 07/16/18) Objective Last 24 Hour Vital Signs Date Time Temp Pulse Resp B/P (MAP) Pulse Ox O2 Delivery O2 Flow Rate FiO2 08/07/18 09:14 70 162/73 08/07/18 09:14 70 162/73 08/07/18 09:00 Room Air Room Air 08/07/18 08:00 98.6 70 18 162/73 (102) 98 08/07/18 06:02 141/85 08/07/18 04:00 98.2 66 16 150/80 (103) 98 08/07/18 00:00 98.4 73 18 152/66 (94) 97 08/06/18 22:09 173/77 08/06/18 21:00 Room Air Room Air 08/06/18 20:28 76 144/82 08/06/18 20:11 73 16 Room Air 21 12/30/18 20:00 98.0 76 18 144/82 (102) 99 08/06/18 15:11 98.5 66 18 149/65 (93) 98 08/06/18 14:11 149/65 Intake and Output 08/06/18 08/07/18 18:59 06:59 Intake Total 1240 ml 700 ml Balance 1240 ml 700 ml Intake Oral 1240 ml 700 ml # Voids 4 Height (Feet): 5 Height (Inches): 2.00 Weight (Pounds): 159 Cardiovascular: normal rate Respiratory/Chest: lungs clear Eligio Neumann MD Aug 07, 2018 11:29
--- NOTE | 2018-08-07 11:51 | NUR ---
INSURANCE UPDATED CLINICAL AND REVIEW FAXED TO [facility] T: [phone] OPT#2 F: [phone]
[2018-08-07 12:00] VITALS: BP 139/60
--- NOTE | 2018-08-07 12:08 | NUR ---
CASE MANAGEMENT: DCPNOTE UPON DISCHARGE PATIENT WILL TRANSFER TO HOME WITH HOME HEALTH [facility] [phone] Addendum: 08/07/18 at 1216 by RYAN HICKEY CM WHEEL CHAIR AND BSC TO BE DELIVERED BY [facility] [phone]
--- NOTE | 2018-08-07 12:18 | NUR ---
CASE MANAGEMENT: REVIEW SI: SOB . PLEURAL EFFUSION T 98.6 HR 70 RR 18 BP 162/73 SAT 98% ROOM AIR IS: PROCRIT SQ MWF LACTULOSE PO TID COREG PO Q12HR PERCOCET 10/325 PO Q4HR PRN MED/SURG STATUS DCP: PATIENT IS FROM HOME. HOME WITH HOME HEALTH
[2018-08-07 14:39] VITALS: BP 127/74
--- NOTE | 2018-08-07 15:30 | NUR ---
NURSE NOTES: Patient discharged home with [facility] assisted by Reji CUENCA from [facility] [address]. Patient is stable, skin is intact. Patient is clean and dry. All belongings with patient. Discharge teaching given to patient by RN, patient verbalized understanding. No IV site.
--- NOTE | 2018-08-07 15:46 | Nephrology Progress Note ---
Assessment/Plan Problem List: (1) Acute on chronic renal failure (2) Solitary kidney (3) Diabetes mellitus (4) Hypertension (5) Diabetic neuropathy (6) Anemia Assessment 1. MICHELLE 2.CKD Absent left kidney 3.HTN ? DM 4.CHF - normal Ej Fx 5.hypocalcemia 6. Anemia of CKD 7. CVA lt weak Plan no labs today stable renal parameters adjust BP meds- starlix increase dose Anemia beckman monitoring renal function avoid NSAID Replace electrolyte as need it per orders IV Venofer SQ EPO DC planning? Subjective ROS Limited/Unobtainable: No Objective Objective Last 24 Hour Vital Signs Date Time Temp Pulse Resp B/P (MAP) Pulse Ox O2 Delivery O2 Flow Rate FiO2 08/07/18 14:39 127/74 08/07/18 12:00 98.6 68 18 139/60 (86) 98 08/07/18 09:14 70 162/73 08/07/18 09:14 70 162/73 08/07/18 09:00 Room Air Room Air 08/07/18 08:00 98.6 70 18 162/73 (102) 98 08/07/18 06:02 141/85 08/07/18 04:00 98.2 66 16 150/80 (103) 98 08/07/18 00:00 98.4 73 18 152/66 (94) 97 08/06/18 22:09 173/77 08/06/18 21:00 Room Air Room Air 08/06/18 20:28 76 144/82 08/06/18 20:11 73 16 Room Air 21 08/06/18 20:00 98.0 76 18 144/82 (102) 99 Intake and Output 08/06/18 08/07/18 19:00 07:00 Intake Total 1240 ml 700 ml Balance 1240 ml 700 ml Intake Oral 1240 ml 700 ml # Voids 4 Height (Feet): 5 Height (Inches): 2.00 Weight (Pounds): 159 General Appearance: no apparent distress Objective no change Abdullahi Newby MD Aug 07, 2018 15:46
--- NOTE | 2018-08-07 20:07 | Cardiology Progress Note ---
Assessment/Plan Assessment/Plan 1. Dyspnea most likely secondary to bilateral pleural effusion, status post right thoracentesis yielding about 500 mL of fluid. 2D echocardiography July 17, 2018 showed normal LV systolic and diastolic function with LVEF of approximately 55%. Continue IV antibiotics, pulmonary toilet, and diuretic therapy. CXR remains to show right hemithorax opacification. Extremely elevated pro-BNP is likely due to hypervolemia due to CKD stage V. 2. Moderate pulmonary hypertension. 3. Stage 5 CKD, 2D echocardiography has shown small pericardial effusion. 4. Anemia, possible chronic kidney disease. 5. History of CVA with left hemiparesis, consider aspirin and statins. Time of note may not reflect time of encounter. Subjective Subjective Denies chest pain or SOB. DC planning today. Objective Last 24 Hour Vital Signs Date Time Temp Pulse Resp B/P (MAP) Pulse Ox O2 Delivery O2 Flow Rate FiO2 08/07/18 14:39 127/74 08/07/18 12:00 98.6 68 18 139/60 (86) 98 08/07/18 09:14 70 162/73 08/07/18 09:14 70 162/73 08/07/18 09:00 Room Air Room Air 08/07/18 08:00 98.6 70 18 162/73 (102) 98 08/07/18 06:02 141/85 08/07/18 04:00 98.2 66 16 150/80 (103) 98 08/07/18 00:00 98.4 73 18 152/66 (94) 97 08/06/18 22:09 173/77 08/06/18 21:00 Room Air Room Air 08/06/18 20:28 76 144/82 08/06/18 20:11 73 16 Room Air 21 Intake and Output 08/06/18 08/07/18 19:00 07:00 Intake Total 1240 ml 700 ml Balance 1240 ml 700 ml Intake Oral 1240 ml 700 ml # Voids 4 2D Echo: LVEF 65%, Mild MR, Normal LVD, RVSP 56mmHg Objective HEENT: Atraumatic and normocephalic. Anicteric. Pupils are equal, round, and reactive to light and accommodation. Extraocular muscles intact. NECK: JVP less than 5 cm. No carotid bruit. Carotid upstrokes 2+ bilaterally. LUNGS: Bilateral lower lung crackles. Diminished breath sounds on both lungs and the bases. CARDIOVASCULAR: Normal S1, S2. Regular rate and rhythm. No murmurs, gallops, or rubs. Tachycardic. ABDOMEN: Soft, nontender, and nondistended. No hepatosplenomegaly. Positive bowel sounds. EXTREMITIES: No evidence of edema, clubbing, or cyanosis. Kwesi Zee MD Aug 07, 2018 20:07
--- NOTE | 2018-08-10 13:01 | Discharge Summary ---
Discharge Summary Discharge Summary _ DATE OF ADMISSION: 07/25/2018 DATE OF DISCHARGE: 2017 DISCHARGED BY: Dr. Mauricio REASON FOR ADMISSION: 53 years old female with past medical history of hypertension, diabetes mellitus , CVA with left hemiparesis, peripheral neuropathy, moderate pulmonary hypertension, presented to emergency department with shortness of breath. At the time of evaluation blood pressure was 190/71. Initial troponin was -0.03. ECG revealed sinus rhythm, no acute ischemic changes. Laboratory workup revealed anemia with hemoglobin 9.6 hematocrit 29.6. BUN 56 creatinine 2.8; potassium 5.7. Chest x-ray revealed cardiomegaly with diffuse extensive interstitial and airspace edema versus infiltrate bilaterally; worse from prior examination as well as moderate bilateral pleural effusion ( right more than left). Patient admitted with diagnosis of acute respiratory failure, bilateral pleural effusion, moderate pulmonary hypertension , stage V chronic kidney disease , anemia possibly due to chronic kidney disease, history of CVA with left hemiparesis, hypertension, diabetes mellitus with diabetic neuropathy , solitary kidney. CONSULTANTS: drilling rig operator Dr. Zee pulmonary Dr. Godinez ID specialist Dr. Mariano GI specialist Dr. Yarbrough pie topper Dr. Newby energy efficient site manager/oncologist Dr. Howell pain specialist Dr. Hagen [facility]SE: Patient admitted to monitored floor. Patient subsequently undergone on 07/25 ultrasound-guided thoracentesis , which yielded 500 mL of fluid. Cytology of pleural fluid revealed mild inflammation, no malignant cells were identified. CXR post thoracentesis revealed improved but still extensive bilateral interstitial and airspace edema versus infiltrates. Initial blood culture showed Staphylococci coagulase negative. Repeated blood culture on 2 separate occasions revealed no growth. Urine culture was negative. Influenza screen test was negativ Patient status post treatment with empiric antibiotic for probable pneumonia. Patient remained afebrile, no leukocytosis. Echocardiogram revealed preserved ejection fraction 60-65%. No evidence of wall motion abnormality. No evidence of left ventricular hypertrophy. No discrete vegetation was seen , however sub bacterial endocarditis cannot be excluded by transthoracic echocardiogram . Mild to moderate mitral regurgitation noted. Right ventricular systolic pressure of 56 consistent with moderate pulmonary hypertension . Initial bacteremia was most likely contaminant , as per infectious disease specialist conclusion. Supplemental oxygen provided. Pulmonary toilet provided as needed. Venous duplex of bilateral lower extremity revealed no evidence of acute DVT. DVT prophylaxis provided. District Loss Prevention Manager followed. Per drilling rig operator, dyspnea was most likely secondary to bilateral pleural effusion. Blood pressure was managed with multiply regimen of antihypertensive medications, including hydralazine ,calcium channel aleena and beta-aleena. Antihypertensive regimen was uptitrated to keep blood pressure under control. Antiplatelet therapy with Plavix provided. Statin was continued. Lipid panel was stable. Sales Promoter closely followed. Patient had acute on chronic renal failure and chronic kidney disease secondary to absent left kidney. Renal parameters and electrolytes were closely monitored, electrolytes corrected as needed. Renal ultrasound revealed normal right kidney. No evidence of hydronephrosis. Nonvisualized left kidney reported to be absent. Creatinine from initial 2.8 down to 2.1 and then up to 2.5. Sales Promoter strongly recommended to avoid NSAIDs and other nephrotoxics. Anemia workup revealed anemia of chronic disease. Stable B12 and folate levels. Patient was on Epogen. 1 dose of Venofer IV given. Hemoglobin and hematocrit were closely monitored with goal to keep hemoglobin above 7. Prior to discharge hemoglobin 8.5 hematocrit 26.3. GI specialist closely followed and recommended outpatient GI procedure. GI prophylaxis provided. Bowel regimen instituted. Blood sugar was managed with Starlix, dose was increased. Hemoglobin A1c 5.2. Patient also noted to have leukopenia, WBC in range 4-6. Hepatitis panel was negative . HIV test was nonreactive. Ultrasound of abdomen showed borderline spleen enlargement. Pain management was addressed as per pain specialist recommendations. Neurontin was continued. Pain was controlled. Patient clinically stabilized , pulse oximetry stable on room air , no shortness of breath. Patient was stable for discharge home with home health services. FINAL DIAGNOSES: Acute respiratory failure secondary to pleural effusion -resolved Bilateral pleural effusion, status post thoracentesis of right pleural effusion Moderate pulmonary hypertension Probable pneumonia , status post treatment Stage V chronic kidney disease Acute kidney injury on chronic kidney disease Anemia of chronic kidney disease History of CVA with left hemiparesis Diabetes mellitus with diabetic neuropathy Hypertension Anemia Thalamic pain syndrome Peripheral neuropathy DISCHARGE MEDICATIONS: See Medication Reconciliation list. DISCHARGE INSTRUCTIONS: Patient was discharged home with home health services. Follow up with primary care provider in one week. I have been assigned to dictate discharge summary for this account. I was not involved in the patient's management. Sandra Aguillon NP Aug 10, 2018 13:01
== END 2018-08-07 15:50 | disposition home health service (06) | DRG 133 ==
LOC: EDBD 02:10 → EMR 02:21 → 2E 04:09 → EDBEDREQ 04:56 → 3E 07-26 21:40
PROC: 0W993ZZ Drainage of Right Pleural Cavity, Percutaneous Approach (ICD-10-PCS; principal; 2018-07-26)
DX: J96.00 Acute respiratory failure, unspecified whether with hypoxia or hypercapnia (principal); N17.0 Acute kidney failure with tubular necrosis; I13.2 Hypertensive heart and chronic kidney disease with heart failure and with stage 5 chronic kidney disease, or end stage renal disease; J18.9 Pneumonia, unspecified organism; E11.22 Type 2 diabetes mellitus with diabetic chronic kidney disease; D68.9 Coagulation defect, unspecified; E11.40 Type 2 diabetes mellitus with diabetic neuropathy, unspecified; J90 Pleural effusion, not elsewhere classified; N18.5 Chronic kidney disease, stage 5; I50.9 Heart failure, unspecified; D63.1 Anemia in chronic kidney disease; Q60.0 Renal agenesis, unilateral; I69.954 Hemiplegia and hemiparesis following unspecified cerebrovascular disease affecting left non-dominant side; I25.2 Old myocardial infarction; I25.10 Atherosclerotic heart disease of native coronary artery without angina pectoris; F32.9 Major depressive disorder, single episode, unspecified; F41.9 Anxiety disorder, unspecified; G89.0 Central pain syndrome; E87.70 Fluid overload, unspecified; I27.20 Pulmonary hypertension, unspecified; E83.51 Hypocalcemia
CPT/HCPCS: 36415; 71045; 76700; 76770; 76942; 80048; 80053; 80061; 80202; 81001; 82043; 82044; 82164; 82550; 82553; 82570; 82607; 82728; 82746; 82977; 83036; 83540; 83550; 83605; 83615; 83690; 83735; 83880; 83986; 84100; 84133; 84300; 84443; 84484; 84550; 85025; 85610; 85730; 86140; 86635; 86705; 86709; 86803; 87040; 87086; 87181; 87340; 87449; 88104; 89050; 89051; 93005; 93306; 93971; 94640; 94664; 94760; 97803; 99285; J7620

== ENCOUNTER 2018-08-09 08:05 | Inpatient (IN) | payer OTHER ==
[~2018-08-09] VITALS: Ht 157.5 cm; Wt 74.8 kg
[2018-08-09 08:05] VITALS: BP 192/110
[~2018-08-09 08:05] MED LIST changes: +UNOBMED
--- NOTE | 2018-08-09 08:05 | NUR ---
ED Nurse Note: PT BROUGHT IN BY AMBULANCE FROM HOME. AOX4. PT C/O CHEST PRESSURE AND SOB X THIS AM. PT DENIES ANY CHEST PAIN. PT PLACED ON NONREBREATHER BY EMS DUE TO LOW O2 SAT. RR17 WITH O2SAT 98% ON 3L O2 VIA NC AT BEDSIDE. NO SIGNS OF RESPIRATORY DISTRESS. NO RETRACTIONS NOTED.
[2018-08-09] MEDS ORDERED: Albuterol ud Inhalation HHN ONE (08:30)
[2018-08-09] MEDS ORDERED: Ipratropium 0.02% Inh Soln 2.5ml UD HHN ONE (08:30)
--- NOTE | 2018-08-09 08:32 | Emergency Room Report ---
History of Present Illness General Chief Complaint: Chest Pain Source: Patient Present Illness HPI 53-year-old female presents ED for evaluation. Complaining of shortness of breath started this morning. O2 sats as per EMS were low. Started on oxygen. Patient denies chest pain. Denies fevers chills. States she was just discharged from hospital 2 days ago. States she was unable to fill her prescriptions that she did not see her PMD yet. No other aggravating relieving factors. Denies any other associated symptoms Allergies: Coded Allergies: LISINOPRIL (Verified Allergy, Unknown, 07/16/18) LOSARTAN (Verified Allergy, Unknown, 07/16/18) Patient History Past Medical History: DM, HTN, CVA/TIA Pertinent Family History: none Social History: Denies: smoking, alcohol use, drug use Now: No Immunizations: UTD Reviewed Nursing Documentation: PMH: Agreed; PSxH: Agreed Nursing Documentation-PMH Past Medical History: No History, Except For Hx Cardiac Problems: Yes - ACS Hx Hypertension: Yes Hx Diabetes: Yes Hx Neurological Problems: Yes Hx Cerebrovascular Accident: Yes - 01/2018 Hx Paralysis: Yes - Left side hemiparesis Hx Peripheral Neuropathy: Yes Hx Weakness: Yes - left side Review of Systems All Other Systems: negative except mentioned in HPI Physical Exam Vital Signs Date Time Temp Pulse Resp B/P (MAP) Pulse Ox O2 Delivery O2 Flow Rate FiO2 08/09/18 07:59 98.8 82 18 220/117 100 Non-Rebreather 10.0 Sp02 EP Interpretation: reviewed, normal General Appearance: no apparent distress, alert, GCS 15, non-toxic Head: normocephalic, atraumatic Eyes: bilateral eye normal inspection, bilateral eye PERRL ENT: hearing grossly normal, normal pharynx, no angioedema, normal voice Neck: full range of motion, supple/symm/no masses Respiratory: chest non-tender, decreased breath sounds, crackles, speaking full sentences Cardiovascular #1: regular rate, rhythm, no edema Cardiovascular #2: 2+ carotid (R), 2+ carotid (L), 2+ radial (R), 2+ radial (L) , 2+ dorsalis pedis (R), 2+ dorsalis pedis (L) Gastrointestinal: normal bowel sounds, non tender, soft, non-distended, no guarding, no rebound Rectal: deferred Genitourinary: normal inspection, no CVA tenderness Musculoskeletal: back normal, gait/station normal, normal range of motion, non- tender Neurologic: alert, oriented x3, responsive, motor strength/tone normal, sensory intact, speech normal Psychiatric: judgement/insight normal, memory normal, mood/affect normal, no suicidal/homicidal ideation Reflexes: 3+ bicep (R), 3+ bicep (L), 3+ tricep (R), 3+ tricep (L), 3+ knee (R) , 3+ knee (L) Skin: normal color, no rash, warm/dry, well hydrated Lymphatic: no adenopathy Medical Decision Making Diagnostic Impression: Primary Impression: Acute on chronic renal failure Qualified Codes: N17.9 - Acute kidney failure, unspecified; N18.9 - Chronic kidney disease, unspecified Additional Impression: Pleural effusion ER Course Hospital Course 53-year-old female presents ED complaining of shortness of breath Differential diagnoses include: IA/unstable angina, contusion, muscle strain, PTX, rib fracture Clinical course Patient placed on stretcher. on radiation monitor. After initial history and physical I ordered labs, EKG, chest x-ray, nebs labs reviewed- noted leukocytosis, hemoglobin/hematocrit stable, creatinine elevated, troponins 0.092, BNP elevated EKG - NSR, no acute ischemic changes interpreted by me Chest x-ray- pulmonary congestion aspirin given. Antibiotics given. Lasix given. Case discussed with Dr. Geiger and he agreed to accept the patient to his service for further care and support I. I feel this is a highly complex case requiring extensive working including EKG/Rhythm strip, Xray/CT/US, Blood/urine lab work, repeat exams while in ED, and administration of strong opiates/narcotics for pain control, admission to hospital or close patient follow up. Diagnosis - acute on chronic renal failure, pleural effusion admitted to telemetry in serious condition Labs Test 08/09/18 09:05 White Blood Count 11.5 K/UL (4.8-10.8) Red Blood Count 3.29 M/UL (4.20-5.40) Hemoglobin 10.7 G/DL (12.0-16.0) Hematocrit 33.4 % (37.0-47.0) Mean Corpuscular Volume 101 FL (80-99) Mean Corpuscular Hemoglobin 32.5 PG (27.0-31.0) Mean Corpuscular Hemoglobin Concent 32.1 G/DL (32.0-36.0) Red Cell Distribution Width 13.5 % (11.6-14.8) Platelet Count 266 K/UL (150-450) Mean Platelet Volume 6.3 FL (6.5-10.1) Neutrophils (%) (Auto) % (45.0-75.0) Lymphocytes (%) (Auto) % (20.0-45.0) Monocytes (%) (Auto) % (1.0-10.0) Eosinophils (%) (Auto) % (0.0-3.0) Basophils (%) (Auto) % (0.0-2.0) Differential Total Cells Counted 100 Neutrophils % (Manual) 89 % (45-75) Lymphocytes % (Manual) 6 % (20-45) Monocytes % (Manual) 3 % (1-10) Eosinophils % (Manual) 0 % (0-3) Basophils % (Manual) 2 % (0-2) Band Neutrophils 0 % (0-8) Platelet Estimate Adequate Platelet Morphology Normal Hypochromasia 1+ Anisocytosis 1+ Macrocytosis 1+ Sodium Level 141 MMOL/L (136-145) Potassium Level 4.3 MMOL/L (3.5-5.1) Chloride Level 111 MMOL/L (98-107) Carbon Dioxide Level 18 MMOL/L (21-32) Anion Gap 12 mmol/L (5-15) Blood Urea Nitrogen 37 mg/dL (7-18) Creatinine 2.2 MG/DL (0.55-1.30) Estimat Glomerular Filtration Rate 28.1 mL/min (>60) Glucose Level 209 MG/DL (74-106) Lactic Acid Level 1.40 mmol/L (0.4-2.0) Calcium Level 8.7 MG/DL (8.5-10.1) Total Bilirubin 0.4 MG/DL (0.2-1.0) Aspartate Amino Transf (AST/SGOT) 24 U/L (15-37) Alanine Aminotransferase (ALT/SGPT) 39 U/L (12-78) Alkaline Phosphatase 105 U/L (46-116) Total Creatine Kinase 471 U/L (26-308) Creatine Kinase MB 5.7 NG/ML (0.0-3.6) Creatine Kinase MB Relative Index 1.2 Troponin I 0.092 ng/mL (0.000-0.056) Pro-B-Type Natriuretic Peptide > 17264 pg/mL (0-125) Total Protein 6.9 G/DL (6.4-8.2) Albumin 2.9 G/DL (3.4-5.0) Globulin 4.0 g/dL Albumin/Globulin Ratio 0.7 (1.0-2.7) EKG Diagnostic Results Rate: normal Rhythm: NSR ST Segments: no acute changes ASA given to the pt in ED: No Rhythm Strip Diag. Results EP Interpretation: yes Rhythm: NSR, no PVC's, no ectopy Chest X-Ray Diagnostic Results Chest X-Ray Diagnostic Results : Chest X-Ray Ordered: Yes # of Views/Limited/Complete: 1 View Indication: Shortness of Breath EP Interpretation: Yes Interpretation: no pneumothorax, other - increased interstitial edema Impression: Other - chf Electronically Signed by: Electronically signed by Eleazar Swanson MD Last Vital Signs Date Time Temp Pulse Resp B/P (MAP) Pulse Ox O2 Delivery O2 Flow Rate FiO2 08/09/18 07:59 98.8 82 18 220/117 100 Non-Rebreather 10.0 Status: improved Disposition: ADMITTED INPATIENT Condition: Serious Referrals: NON PHYSICIAN (PCP) Eleazar Swanson MD Aug 09, 2018 08:32
--- NOTE | 2018-08-09 08:42 | NUR ---
ED Nurse Note: Notified of lab of blood draw. Awaiting for arrival.
--- NOTE | 2018-08-09 08:50 | NUR ---
ED Nurse Note: LAB AT BEDSIDE.
[2018-08-09 09:17] LABS: HEMATOCRIT 33.4 % (37.0-47.0); HEMOGLOBIN 10.7 G/DL (12.0-16.0); MEAN CORPUSCULAR VOLUME 101 FL (80-99); PLATELET COUNT 266 K/UL (150-450); RED BLOOD COUNT 3.29 M/UL (4.20-5.40); RED CELL DISTRIBUTION WIDTH 13.5 % (11.6-14.8); WHITE BLOOD COUNT 11.5 K/UL (4.8-10.8)
--- NOTE | 2018-08-09 09:17 | NUR ---
ED Nurse Note: PT REFUSES FLU SWAB AND URINE SAMPLE. DR. Joan DE LA CRUZ.
[2018-08-09 09:24] LABS: ANION GAP 12 mmol/L (5-15); BLOOD UREA NITROGEN 37 mg/dL (7-18); CALCIUM 8.7 MG/DL (8.5-10.1); CARBON DIOXIDE 18 MMOL/L (21-32); CHLORIDE 111 MMOL/L (98-107); CREATININE 2.2 MG/DL (0.55-1.30); POTASSIUM 4.3 MMOL/L (3.5-5.1); SODIUM 141 MMOL/L (136-145)
[2018-08-09 09:37] LABS: ALANINE AMINOTRANSFERASE 39 U/L (12-78); ALBUMIN 2.9 G/DL (3.4-5.0); ALBUMIN/GLOBULIN RATIO 0.7 (1.0-2.7); ALKALINE PHOSPHATASE 105 U/L (46-116); ASPARTATE AMINO TRANSFERASE 24 U/L (15-37); BILIRUBIN,TOTAL 0.4 MG/DL (0.2-1.0); CKMB 5.7 NG/ML (0.0-3.6); CREATINE KINASE 471 U/L (26-308)
--- NOTE | 2018-08-09 10:02 | NUR ---
ED Nurse Note: PT WAS ADMITTED TO HOSPITAL IN THE LAST 30 DAYS. ORDERS FOR MRSA, CRE, AND VRE SWAB ENTERED. HOWEVER, PT REFUSES SWAB.
[2018-08-09] MEDS ORDERED: UNOBMED (10:06)
--- NOTE | 2018-08-09 10:06 | Diagnostic Imaging Report ---
Indication: Dyspnea Comparison: None A single view chest radiograph was obtained. Findings: Interstitial edema has increased since last study. Heart size is stable. Lung volumes are low. IMPRESSION: Suspected CHF
[2018-08-09] MEDS ORDERED: Morphine Sulfate 4mg/ml Inj (IV/IM USE ONLY) IVP ONE (10:15)
[2018-08-09] MEDS ORDERED: Piperacillin/Tazobactam 3.375 GM in NS 110 ML IVPB ONE (10:15)
--- NOTE | 2018-08-09 10:26 | NUR ---
ED Nurse Note: TELE UNIT CALLED FOR PT TRANSFER. REPORT GIVEN TO JENNIFER WADDELL. PT TAKEN UP VIA GURNEY WITH ALL BELONGINGS ON HIDES SOAKER AND MEDICATION RUNNING ON IV PUMP ACCOMPANIED BY PRIMARY RN AND EMT.
[2018-08-09] MEDS: Azithromycin 500 MG in NS 275 ML IV ONE ×2 (10:32→11:00)
--- NOTE | 2018-08-09 11:17 | NUR ---
NURSE NOTES: received pt awake , drowsy, irritable, conversant.keeps on bending the right arm so iv abx is interrupted as far as infusing. call light within reach .denies chest pain. will monitor. sacral area clean dry and intact. left sided weakness/hemiplegia. per pt she doesn't know which meds she is taking. left msg for Dr Neumann for admit order, relayed bnp , troponin and wbc result for today. Dr Neumann acknowledged need for admission orders. awaiting further orders. Addendum: 08/09/18 at 1201 by BAIRON MARTINEZ RN per Dr Neumann same orders as prior admission, abx per id Jt Vazquez. relayed consult to Dr Waters in person
[2018-08-09 11:18] VITALS: BP 193/98
[2018-08-09] MEDS ORDERED: Minoxidil 2.5mg tab ORAL PRN (12:15)
[2018-08-09] MEDS ORDERED: Miralax 17gm pkt ORAL PRN (12:15)
[2018-08-09] MEDS ORDERED: Albuterol/Ipratropium 3ml neb HHN PRN (12:15)
--- NOTE | 2018-08-09 12:24 | Infectious Diseases Prog Note ---
Assessment/Plan Assessment/Plan ID consult dictated Subjective Allergies: Coded Allergies: LISINOPRIL (Verified Allergy, Unknown, 07/16/18) LOSARTAN (Verified Allergy, Unknown, 07/16/18) Objective Vital Signs Last 24 Hour Vital Signs Date Time Temp Pulse Resp B/P (MAP) Pulse Ox O2 Delivery O2 Flow Rate FiO2 08/09/18 11:25 Room Air Room Air 08/09/18 11:18 91 22 193/98 (129) 08/09/18 10:27 98.4 86 18 209/ 100 Nasal Cannula 3.0 08/09/18 10:24 209/91 08/09/18 08:46 87 18 100 Nasal Cannula 3.0 08/09/18 08:28 82 18 100 Non-Rebreather 15.0 100 08/09/18 08:24 82 18 Non-Rebreather 15.0 100 08/09/18 08:05 83 17 Nasal Cannula 3.0 08/09/18 08:05 98.7 83 17 192/110 100 Nasal Cannula 3.0 08/09/18 07:59 98.8 82 18 220/117 100 Non-Rebreather 10.0 Height (Feet): 5 Height (Inches): 2.00 Weight (Pounds): 140 Laboratory Tests Test 08/09/18 09:05 White Blood Count 11.5 K/UL (4.8-10.8) H Red Blood Count 3.29 M/UL (4.20-5.40) L Hemoglobin 10.7 G/DL (12.0-16.0) L Hematocrit 33.4 % (37.0-47.0) L Mean Corpuscular Volume 101 FL (80-99) H Mean Corpuscular Hemoglobin 32.5 PG (27.0-31.0) H Mean Corpuscular Hemoglobin Concent 32.1 G/DL (32.0-36.0) Red Cell Distribution Width 13.5 % (11.6-14.8) Platelet Count 266 K/UL (150-450) Mean Platelet Volume 6.3 FL (6.5-10.1) L Neutrophils (%) (Auto) % (45.0-75.0) Lymphocytes (%) (Auto) % (20.0-45.0) Monocytes (%) (Auto) % (1.0-10.0) Eosinophils (%) (Auto) % (0.0-3.0) Basophils (%) (Auto) % (0.0-2.0) Differential Total Cells Counted 100 Neutrophils % (Manual) 89 % (45-75) H Lymphocytes % (Manual) 6 % (20-45) L Monocytes % (Manual) 3 % (1-10) Eosinophils % (Manual) 0 % (0-3) Basophils % (Manual) 2 % (0-2) Band Neutrophils 0 % (0-8) Platelet Estimate Adequate Platelet Morphology Normal Hypochromasia 1+ Anisocytosis 1+ Macrocytosis 1+ Sodium Level 141 MMOL/L (136-145) Potassium Level 4.3 MMOL/L (3.5-5.1) Chloride Level 111 MMOL/L (98-107) H Carbon Dioxide Level 18 MMOL/L (21-32) L Anion Gap 12 mmol/L (5-15) Blood Urea Nitrogen 37 mg/dL (7-18) H Creatinine 2.2 MG/DL (0.55-1.30) H Estimat Glomerular Filtration Rate 28.1 mL/min (>60) Glucose Level 209 MG/DL (74-106) H Lactic Acid Level 1.40 mmol/L (0.4-2.0) Calcium Level 8.7 MG/DL (8.5-10.1) Total Bilirubin 0.4 MG/DL (0.2-1.0) Aspartate Amino Transf (AST/SGOT) 24 U/L (15-37) Alanine Aminotransferase (ALT/SGPT) 39 U/L (12-78) Alkaline Phosphatase 105 U/L (46-116) Total Creatine Kinase 471 U/L (26-308) H Creatine Kinase MB 5.7 NG/ML (0.0-3.6) H Creatine Kinase MB Relative Index 1.2 Troponin I 0.092 ng/mL (0.000-0.056) Pro-B-Type Natriuretic Peptide > 42678 pg/mL (0-125) H Total Protein 6.9 G/DL (6.4-8.2) Albumin 2.9 G/DL (3.4-5.0) L Globulin 4.0 g/dL Albumin/Globulin Ratio 0.7 (1.0-2.7) L Current Medications Medications (Trade) Dose Ordered Sig/Zara Route PRN Reason Start Time Stop Time Status Last Admin Dose Admin Acetaminophen (Tylenol) 650 mg Q4H PRN ORAL Mild Pain/Temp > 100.5 08/09/18 12:15 09/08/18 12:14 Albuterol/ Ipratropium (Albuterol/ Ipratropium) 3 ml Q4H PRN HHN Shortness of Breath 08/09/18 12:15 08/14/18 12:14 UNV Amlodipine Besylate (Norvasc) 10 mg DAILY ORAL 08/10/18 09:00 09/09/18 08:59 Atorvastatin Calcium (Lipitor) 10 mg BEDTIME ORAL 08/09/18 21:00 09/08/18 20:59 Carvedilol (Coreg) 37.5 mg EVERY 12 HOURS ORAL 08/09/18 21:00 09/08/18 20:59 Clopidogrel Bisulfate (Plavix) 75 mg DAILY ORAL 08/10/18 09:00 09/09/18 08:59 UNV Epoetin Yordan (Procrit (for non ESRD use)) 10,000 units TUE-TUE-TUE SUBQ 08/09/18 21:00 09/08/18 20:59 UNV Gabapentin (Neurontin) 300 mg Q12HR ORAL 08/09/18 21:00 09/08/18 20:59 UNV Heparin Sodium (Porcine) (Heparin 5000 units/ml) 5,000 units EVERY 12 HOURS SUBQ 08/09/18 21:00 09/08/18 20:59 UNV Hydralazine HCl (Apresoline) 75 mg Q8HR ORAL 08/09/18 14:00 09/08/18 13:59 UNV Minoxidil (Loniten) 2.5 mg Q4H PRN ORAL sbp> 165 08/09/18 12:15 09/08/18 12:14 UNV Mirtazapine (Remeron) 7.5 mg BEDTIME ORAL 08/09/18 21:00 09/08/18 20:59 UNV Nateglinide (Starlix) 120 mg TIAC ORAL 08/09/18 16:30 09/08/18 16:29 UNV Ondansetron HCl (Zofran) 4 mg Q6H PRN IVP Nausea & Vomiting 08/09/18 12:15 09/08/18 12:14 UNV Oxycodone/ Acetaminophen (Percocet 10/325) 1 tab Q4H PRN ORAL moderate-severe pain 08/09/18 12:15 08/16/18 12:14 UNV Pantoprazole (Protonix) 40 mg DAILY ORAL 08/10/18 09:00 09/09/18 08:59 UNV Polyethylene Glycol (Miralax) 17 gm DAILY PRN ORAL Constipation 08/09/18 12:15 09/08/18 12:14 UNV Trazodone HCl (Desyrel) 50 mg BEDTIME ORAL 08/09/18 21:00 09/08/18 20:59 UNV Jt Rizvi MD Aug 09, 2018 12:24
--- NOTE | 2018-08-09 12:57 | NUR ---
NURSE NOTES: pt c/o left leg pain and back pain and generalized pain, percocet given prn as ordered will monitor effectiveness.
[2018-08-09] MEDS: HydrALAZINE 25mg tab ORAL SCH ×2 (13:09→21:41)
[2018-08-09] MEDS: cefTRIAXone 1 GM in D5W 55 ML IVPB SCH (14:22)
[2018-08-09 16:47] VITALS: BP 165/83
--- NOTE | 2018-08-09 18:41 | Cardiology Progress Note ---
Assessment/Plan Assessment/Plan The patient is seen and examined, full cardiology consult note will be dictated shortly. Objective Last 24 Hour Vital Signs Date Time Temp Pulse Resp B/P (MAP) Pulse Ox O2 Delivery O2 Flow Rate FiO2 08/09/18 17:06 97.7 08/09/18 16:47 97.7 82 22 165/83 (110) 08/09/18 15:33 83 08/09/18 13:09 193/98 08/09/18 11:25 Room Air Room Air 08/09/18 11:18 91 22 193/98 (129) 08/09/18 11:15 89 08/09/18 10:27 98.4 86 18 209/91 100 Nasal Cannula 3.0 08/09/18 10:24 209/91 08/09/18 08:46 87 18 100 Nasal Cannula 3.0 08/09/18 08:28 82 18 100 Non-Rebreather 15.0 100 08/09/18 08:24 82 18 Non-Rebreather 15.0 100 08/09/18 08:05 83 17 Nasal Cannula 3.0 08/09/18 08:05 98.7 83 17 192/110 100 Nasal Cannula 3.0 08/09/18 07:59 98.8 82 18 220/117 100 Non-Rebreather 10.0 Laboratory Tests Test 08/09/18 09:05 White Blood Count 11.5 K/UL (4.8-10.8) H Red Blood Count 3.29 M/UL (4.20-5.40) L Hemoglobin 10.7 G/DL (12.0-16.0) L Hematocrit 33.4 % (37.0-47.0) L Mean Corpuscular Volume 101 FL (80-99) H Mean Corpuscular Hemoglobin 32.5 PG (27.0-31.0) H Mean Corpuscular Hemoglobin Concent 32.1 G/DL (32.0-36.0) Red Cell Distribution Width 13.5 % (11.6-14.8) Platelet Count 266 K/UL (150-450) Mean Platelet Volume 6.3 FL (6.5-10.1) L Neutrophils (%) (Auto) % (45.0-75.0) Lymphocytes (%) (Auto) % (20.0-45.0) Monocytes (%) (Auto) % (1.0-10.0) Eosinophils (%) (Auto) % (0.0-3.0) Basophils (%) (Auto) % (0.0-2.0) Differential Total Cells Counted 100 Neutrophils % (Manual) 89 % (45-75) H Lymphocytes % (Manual) 6 % (20-45) L Monocytes % (Manual) 3 % (1-10) Eosinophils % (Manual) 0 % (0-3) Basophils % (Manual) 2 % (0-2) Band Neutrophils 0 % (0-8) Platelet Estimate Adequate Platelet Morphology Normal Hypochromasia 1+ Anisocytosis 1+ Macrocytosis 1+ Sodium Level 141 MMOL/L (136-145) Potassium Level 4.3 MMOL/L (3.5-5.1) Chloride Level 111 MMOL/L (98-107) H Carbon Dioxide Level 18 MMOL/L (21-32) L Anion Gap 12 mmol/L (5-15) Blood Urea Nitrogen 37 mg/dL (7-18) H Creatinine 2.2 MG/DL (0.55-1.30) H Estimat Glomerular Filtration Rate 28.1 mL/min (>60) Glucose Level 209 MG/DL (74-106) H Lactic Acid Level 1.40 mmol/L (0.4-2.0) Calcium Level 8.7 MG/DL (8.5-10.1) Total Bilirubin 0.4 MG/DL (0.2-1.0) Aspartate Amino Transf (AST/SGOT) 24 U/L (15-37) Alanine Aminotransferase (ALT/SGPT) 39 U/L (12-78) Alkaline Phosphatase 105 U/L (46-116) Total Creatine Kinase 471 U/L (26-308) H Creatine Kinase MB 5.7 NG/ML (0.0-3.6) H Creatine Kinase MB Relative Index 1.2 Troponin I 0.092 ng/mL (0.000-0.056) Pro-B-Type Natriuretic Peptide > 48523 pg/mL (0-125) H Total Protein 6.9 G/DL (6.4-8.2) Albumin 2.9 G/DL (3.4-5.0) L Globulin 4.0 g/dL Albumin/Globulin Ratio 0.7 (1.0-2.7) L Kwesi Zee MD Aug 09, 2018 18:41
--- NOTE | 2018-08-09 18:45 | Consultation ---
DATE OF CONSULTATION: 08/09/2018 INFECTIOUS DISEASES CONSULTATION CONSULTING PHYSICIAN: Jt Rizvi M.D. PRIMARY ATTENDING PHYSICIAN: Eligio Neumann M.D. REASON FOR CONSULTATION: Leukocytosis, hypoxemia. HISTORY OF PRESENT ILLNESS: This 53-year-old female admitted today from home complaining of shortness of breath. According to the EMS, has decrease in O2 saturation. The patient was recently discharged from [facility] on 08/07/2018. On previous admission, the patient had pleural effusion and right thoracocentesis, was treated for pneumonia. PAST MEDICAL HISTORY: Significant for diabetes mellitus; hypertension; CVA and left hemiparesis; solitary kidney; chronic kidney disease, stage 4; diabetic neuropathy. ALLERGIES: Allergic to lisinopril and losartan. MEDICATIONS: Getting get a dose of Zithromax, Zosyn, getting hydralazine, Lasix, morphine sulfate, albuterol ipratropium. SOCIAL HISTORY: Lives at home. Single. Denies alcohol, drug abuse, or smoking. has children. REVIEW OF SYSTEMS: In addition to shortness of breath, denies any fever or any other symptoms except pain in the left leg. PHYSICAL EXAMINATION: VITAL SIGNS: Temperature 98.4, pulse 91, blood pressure 193/98. GENERAL APPEARANCE: No acute distress. HEAD AND NECK: [place] conjunctiva. No significant oral lesion. HEART: Normal rate. LUNGS: Clear. ABDOMEN: Soft and nontender. EXTREMITIES: Has edema of both legs. NEUROLOGIC: Awake, alert, oriented x3. Some weakness in the left side of the body. LABORATORY AND DIAGNOSTIC DATA: WBC 11.5, hemoglobin 10.7, hematocrit 33.4, and platelet is 266. Sodium 141, potassium 4.3, chloride 111, bicarbonate 18, glucose 209, BUN 37, creatinine 2.2. BNP more than 35,000. Chest x-ray, there is congestive heart failure. IMPRESSION: Mild leukocytosis and hypoxemia more likely secondary to congestive heart failure. The patient has hypertensive urgency, chronic kidney disease, hypertension, and diabetes mellitus with diabetic neuropathy. RECOMMENDATION: We will obtain UA and urine culture. Continue antibiotic with Rocephin. We will follow up the clinical course and laboratories. At the end of my exam, I thank Dr. Neumann for involving me in the care of this patient. Jt Rizvi M.D. DR: Ryan JOB#: [id number] CC: LISA
--- NOTE | 2018-08-09 19:34 | NUR ---
NURSE NOTES: Received report from Hector RODRIGUEZ. Pt in stable condition w/ no signs of distress or discomfort. Call light within reach, bedside table within reach, bed in low and locked position. Continue to monitor.
--- NOTE | 2018-08-09 19:35 | NUR ---
HAND-OFF: Report given to JENNIFER CLARKE.
--- NOTE | 2018-08-09 19:36 | NUR ---
NURSE NOTES: Received report from Hector RODRIGUEZ. Pt in stable condition w/o any distress or discomfort. Bed in low and locked position, call light within reach, bedside table within reach. Continue to monitor.
[2018-08-09 20:00] VITALS: BP 185/84
[2018-08-09] MEDS ORDERED: Epogen (for non ESRD use) SUBQ SCH (21:00)
[2018-08-09] MEDS: Carvedilol 12.5mg tab ORAL SCH (21:39)
[2018-08-09] MEDS: TraZODone 50mg tab ORAL SCH (21:40)
[2018-08-09] MEDS: Heparin 5000 units/ml inj SUBQ SCH (21:42)
--- NOTE | 2018-08-09 23:00 | History and Physical Report ---
DATE OF ADMISSION: 08/09/[address] Naun Geiger's patient. I am covering for Dr. Naun Geiger. HISTORY OF PRESENT ILLNESS: The patient was just recently admitted and discharged and came back with shortness of breath and chest pain. The patient basically complains of shortness of breath and chest pain, does not radiate. Denies nausea, vomiting, or diarrhea. No fever or chills. Does have also chronic pain all over the and including leg pain and left arm pain as well. PAST MEDICAL HISTORY: Significant for hypertension, hyperlipidemia, chronic pain syndrome, anemia, history of asthma, systolic hypertension, solitary kidney, history of CAD and HI, history of NIDDM, vitamin D deficiency, constipation, depression, and CVA with left paresis. PAST SURGICAL HISTORY: and kidney surgery. ALLERGIES: Losartan and lisinopril. MEDICATIONS: Trazodone, multivitamin, mirtazapine, lorazepam, insulin, iodine, hydralazine, ferrous sulfate, Plavix, Lipitor, and amlodipine. FAMILY HISTORY: Noncontributory. SOCIAL HISTORY: Denies history of smoking, alcohol, or illicit drugs. REVIEW OF SYSTEMS: HEENT: Denies headaches. RESPIRATORY: Denies cough. Reports shortness of breath. Denies wheezing. CARDIOVASCULAR: Reports chest pain for one day. GASTROINTESTINAL: Denies nausea, vomiting, or diarrhea. EXTREMITIES: Reports pain all over the body. She has left-sided weakness, which is from her previous stroke. PHYSICAL EXAMINATION: VITAL SIGNS: Temperature 97.7, pulse 82, and blood pressure 193/98. HEENT: PERRLA. NECK: Supple. No JVD. CHEST: Clear to auscultation. CARDIOVASCULAR: Regular rate and rhythm. ABDOMEN: Soft. Positive bowel sounds. No organomegaly. EXTREMITIES: left-sided paresis. LABORATORY DATA: WBC of 11.5, hemoglobin 10.7, and platelets of 256,000. Sodium 141, potassium 4.3, BUN of 37, creatinine 2.2, and glucose of 209. Troponin is 0.092. ASSESSMENT AND PLAN: Chest pain and shortness of breath. I have asked Dr. Zee, Dr. Park as well as Dr. Gutiérrez to see the patient for the congestive heart failure, pleural effusion, as well as shortness of breath. The patient also had pleural effusion and elevated creatinine, so they will also help with management of the fluid balance as well as Dr. Hagen for the pain control. The patient is dependent on pain medication. Eligio Neumann M.D. DR: KIM JOB#: [id number] CC:
[2018-08-10] VITALS: BP 169/75
[2018-08-10 04:00] VITALS: BP 181/82
[2018-08-10] MEDS: HydrALAZINE 25mg tab ORAL SCH (06:17)
--- NOTE | 2018-08-10 07:19 | NUR ---
HAND-OFF: Report given to ana alvarenga. endorsed plan of care.
--- NOTE | 2018-08-10 07:20 | NUR ---
NURSE NOTES: I received the patient resting in bed. Patient does not display any signs of distress or SOB. Bed in the lowest position and call light within reach. I will continue to monitor the patient and implement care.
[2018-08-10 08:00] VITALS: BP 169/76
[2018-08-10] MEDS: Carvedilol 12.5mg tab ORAL SCH ×2 (08:42→21:08)
[2018-08-10] MEDS: Heparin 5000 units/ml inj SUBQ SCH ×2 (08:43→21:10)
--- NOTE | 2018-08-10 09:02 | General Progress Note ---
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 D/w Dr. Hagen and he concurred. Subjective Date patient seen: Aug 10, 2018 Time patient seen: 08:15 - am Allergies: Coded Allergies: LISINOPRIL (Verified Allergy, Unknown, 07/16/18) LOSARTAN (Verified Allergy, Unknown, 07/16/18) Subjective REVIEW OF SYSTEMS: Denies rash, fever, chills, sweating, dizziness, drowsiness, blurred vision, sore throat, change in her weight. No shortness of breath at this time. No chest pain, palpitations, or cough. No nausea, vomiting, diarrhea, or blood in the stool or urine. No bowel or bladder incontinence. She is complaining of generalized body pain. SUBJECTIVE: Patient is a known patient from recent admission and continues to c/o generalized body pain. Started on Percocet 10/325mg PO 1 tab Q4H PRN severe pain. Objective Last 24 Hour Vital Signs Date Time Temp Pulse Resp B/P (MAP) Pulse Ox O2 Delivery O2 Flow Rate FiO2 08/10/18 08:42 67 169/76 08/10/18 08:42 67 169/76 08/10/18 08:00 97.7 67 20 169/76 (107) 99 08/10/18 06:17 181/82 08/10/18 04:47 98.0 08/10/18 04:05 71 20 Nasal Cannula 3.0 32 08/10/18 04:00 98.4 70 20 181/82 (115) 98 08/10/18 04:00 70 08/10/18 00:00 98.0 71 20 169/75 (106) 95 08/10/18 00:00 71 08/09/18 22:34 Room Air Room Air 08/09/18 21:41 185/84 08/09/18 21:39 80 185/84 08/09/18 20:00 84 08/09/18 20:00 98.6 80 20 185/84 (117) 95 08/09/18 16:47 97.7 82 22 165/83 (110) 08/09/18 15:33 83 08/09/18 13:09 193/98 08/09/18 11:25 Room Air Room Air 08/09/18 11:18 91 22 193/98 (129) 08/09/18 11:15 89 08/09/18 10:27 98.4 86 18 100 Nasal Cannula 3.0 08/09/18 10:24 Intake and Output 08/09/18 08/10/18 19:00 07:00 Intake Total 240 ml Balance 240 ml Intake Oral 240 ml # Voids 2 3 Laboratory Tests 08/09/18 09:05: White Blood Count 11.5H, Red Blood Count 3.29L, Hemoglobin 10.7L, Hematocrit 33.4L, Mean Corpuscular Volume 101H, Mean Corpuscular Hemoglobin 32.5H, Mean Corpuscular Hemoglobin Concent 32.1, Red Cell Distribution Width 13.5, Platelet Count 266, Mean Platelet Volume 6.3L, Neutrophils (%) (Auto) , Lymphocytes (%) ( Auto) , Monocytes (%) (Auto) , Eosinophils (%) (Auto) , Basophils (%) (Auto) , Differential Total Cells Counted 100, Neutrophils % (Manual) 89H, Lymphocytes % (Manual) 6L, Monocytes % (Manual) 3, Eosinophils % (Manual) 0, Basophils % ( Manual) 2, Band Neutrophils 0, Platelet Estimate Adequate, Platelet Morphology Normal, Hypochromasia 1+, Anisocytosis 1+, Macrocytosis 1+, Sodium Level 141, Potassium Level 4.3, Chloride Level 111H, Carbon Dioxide Level 18L, Anion Gap 12 , Blood Urea Nitrogen 37H, Creatinine 2.2H, Estimat Glomerular Filtration Rate 28.1, Glucose Level 209H, Lactic Acid Level 1.40, Calcium Level 8.7, Total Bilirubin 0.4, Aspartate Amino Transf (AST/SGOT) 24, Alanine Aminotransferase ( ALT/SGPT) 39, Alkaline Phosphatase 105, Total Creatine Kinase 471H, Creatine Kinase MB 5.7H, Creatine Kinase MB Relative Index 1.2, Troponin I 0.092H, Pro-B- Type Natriuretic Peptide > 04446H, Total Protein 6.9, Albumin 2.9L, Globulin 4.0 , Albumin/Globulin Ratio 0.7L Height (Feet): 5 Height (Inches): 2.00 Weight (Pounds): 139 Objective GENERAL: Alert, awake, and oriented. LUNGS: Decreased breath sounds bilaterally. HEART: S1 and S2 regular. ABDOMEN: Benign. EXTREMITIES: No cyanosis. No clubbing. NEURO: Weakness noted in extremities. Kwabena Verduzco Aug 10, 2018 09:02
--- NOTE | 2018-08-10 09:42 | Nephrology Progress Note ---
Assessment/Plan Plan pt seen and examined full consult dictated Objective Objective Last 24 Hour Vital Signs Date Time Temp Pulse Resp B/P (MAP) Pulse Ox O2 Delivery O2 Flow Rate FiO2 08/10/18 09:00 Room Air Room Air 08/10/18 08:42 67 169/76 08/10/18 08:42 67 169/76 08/10/18 08:00 97.7 67 20 169/76 (107) 99 08/10/18 07:35 63 08/10/18 06:17 181/82 08/10/18 04:47 98.0 08/10/18 04:05 71 20 Nasal Cannula 3.0 32 08/10/18 04:00 98.4 70 20 181/82 (115) 98 08/10/18 04:00 70 08/10/18 00:00 98.0 71 20 169/75 (106) 95 08/10/18 00:00 71 08/09/18 22:34 Room Air Room Air 08/09/18 21:41 185/84 08/09/18 21:39 80 185/84 08/09/18 20:00 84 08/09/18 20:00 98.6 80 20 185/84 (117) 95 08/09/18 16:47 97.7 82 22 165/83 (110) 08/09/18 15:33 83 08/09/18 13:09 193/98 08/09/18 11:25 Room Air Room Air 08/09/18 11:18 91 22 193/98 (129) 08/09/18 11:15 89 08/09/18 10:27 98.4 86 18 209/91 100 Nasal Cannula 3.0 08/09/18 10:24 /91 Intake and Output 08/09/18 08/10/18 19:00 07:00 Intake Total 240 ml Balance 240 ml Intake Oral 240 ml # Voids 2 3 Height (Feet): 5 Height (Inches): 2.00 Weight (Pounds): 139 Nabila Park MD Aug 10, 2018 09:42
[2018-08-10 11:39] VITALS: BP 140/60
--- NOTE | 2018-08-10 12:42 | NUR ---
INSURANCE ALL CLINICALS HAVE BEEN FAXED TO: [facility] P:[phone] F:[phone] Addendum: 08/10/18 at 1244 by DRISS ZULUAGA CM REF#[id number]
--- NOTE | 2018-08-10 12:56 | Consultation ---
History of Present Illness General Date patient seen: Aug 10, 2018 Chief Complaint: Chest Pain Present Illness Allergies: Coded Allergies: LISINOPRIL (Verified Allergy, Unknown, 07/16/18) LOSARTAN (Verified Allergy, Unknown, 07/16/18) Medication History Scheduled Amlodipine Besylate* (Amlodipine Besylate*), 10 MG ORAL DAILY, (Reported) Aspirin* (Aspirin*), 81 MG ORAL DAILY, (Reported) Atorvastatin Calcium* (Lipitor*), 80 MG ORAL BEDTIME, (Reported) Calcium Acetate (Calcium Acetate), 667 MG PO TID, (Reported) Carvedilol (Coreg), 37.5 MG ORAL EVERY 12 HOURS, (Reported) Clopidogrel Bisulfate* (Plavix*), 75 MG ORAL DAILY, (Reported) Docusate Sodium* (Colace*), 100 MG ORAL TWICE A DAY, (Reported) Epoetin Yordan (Procrit), 4,000 UNIT SUBQ 3XW, (Reported) Ergocalciferol (Vitamin D2) (Vitamin D2), 50,000 UNIT PO WEEKLY, (Reported) Ferrous Sulfate* (Ferrous Sulfate*), 325 MG ORAL TWICE A DAY, (Reported) Furosemide* (Lasix*), 40 MG ORAL TWICE A DAY, (Reported) Gabapentin* (Gabapentin*), 300 MG ORAL THREE TIMES A DAY, (Reported) Heparin Sod (Porcine) (Heparin Sodium*), 5,000 UNITS SUBQ EVERY 12 HOURS, ( Reported) Hydralazine Hcl* (Hydralazine Hcl*), 100 MG ORAL EVERY 8 HOURS, (Reported) Insulin Glargine (Lantus), 15 UNITS SUBQ BID, (Reported) Insulin Lispro (Humalog), 0 SUBQ QID, (Reported) Insulin Lispro (Humalog), 6 UNITS SUBQ AC, (Reported) Iron Sucrose (Venofer), 100 MG IVP DAILY, (Reported) Isosorbide Dinitrate (Isordil), 40 MG PO TID, (Reported) Melatonin (Melatonin), 3 MG ORAL BEDTIME, (Reported) Mirtazapine* (Mirtazapine*), 7.5 MG ORAL BEDTIME, (Reported) Multivitamin with Minerals (Multivitamins with Minerals), 1 TAB ORAL DAILY, ( Reported) Polyethylene Glycol 3350* (Miralax*), 17 GM ORAL DAILY, (Reported) Trazodone Hcl* (Desyrel*), 50 MG ORAL BEDTIME, (Reported) Scheduled PRN Acetaminophen* (Acetaminophen 325MG Tablet*), 650 MG ORAL Q6H PRN for Mild Pain (Pain Scale 1-3), (Reported) Bisacodyl (Dulcolax), 10 MG RC DAILY PRN for IF MOM INEFFECTIVE, (Reported) Hydromorphone HCl/Pf (Dilaudid 0.5 mg/0.5 ml Syringe), 0.2 MG IVP Q4HR PRN for Breakthrough Pain, (Reported) Lorazepam* (Ativan*), 0.5 MG ORAL DAILY PRN for For Anxiety, (Reported) Nitroglycerin (Nitrostat), 0.4 MG SL Q5M X3 DOSES PRN for CHEST PAIN, (Reported) Ondansetron* (Zofran*), 4 MG IVP Q8H PRN for Nausea & Vomiting, (Reported) Oxycodone Hcl Ir* (Roxicodone Ir*), 5 MG ORAL Q4H PRN for Moderate Pain (Pain Scale 4-6), (Reported) Oxycodone Hcl/Acetaminophen 10-325* (Oxycodone-Acetaminophen 10-325*), 1 TAB ORAL Q4H PRN for Severe Pain (Pain Scale 7-10), (Reported) Miscellaneous Medications Unable to Obtain Medications (Unable To Obtain Meds), (Reported) Unable to Obtain Medications (Unable To Obtain Meds), (Reported) Patient History Healthcare decision maker Resuscitation status Advanced Directive on File Physical Exam Last 24 Hour Vital Signs Date Time Temp Pulse Resp B/P (MAP) Pulse Ox O2 Delivery O2 Flow Rate FiO2 08/10/18 11:39 97.5 65 22 140/60 (86) 100 08/10/18 11:39 62 08/10/18 10:53 97.7 08/10/18 09:00 Room Air Room Air 08/10/18 08:42 67 169/76 08/10/18 08:42 67 169/76 08/10/18 08:00 97.7 67 20 169/76 (107) 99 08/10/18 08:00 68 16 Nasal Cannula 3.0 32 08/10/18 07:35 63 08/10/18 06:17 181/82 08/10/18 04:05 71 20 Nasal Cannula 3.0 32 08/10/18 04:00 98.4 70 20 181/82 (115) 98 08/10/18 04:00 70 08/10/18 00:00 98.0 71 20 169/75 (106) 95 08/10/18 00:00 71 08/09/18 22:34 Room Air Room Air 08/09/18 21:41 185/84 08/09/18 21:39 80 185/84 08/09/18 20:00 84 08/09/18 20:00 98.6 80 20 185/84 (117) 95 08/09/18 16:47 97.7 82 22 165/83 (110) 08/09/18 15:33 83 08/09/18 13:09 193/98 Intake and Output 08/09/18 08/10/18 19:00 07:00 Intake Total 240 ml Balance 240 ml Intake Oral 240 ml # Voids 2 3 Height (Feet): 5 Height (Inches): 2.00 Weight (Pounds): 139 Medications Current Medications Medications (Trade) Dose Ordered Sig/Zara Route PRN Reason Start Time Stop Time Status Last Admin Dose Admin Acetaminophen (Tylenol) 650 mg Q4H PRN ORAL Mild Pain/Temp > 100.5 08/09/18 12:15 09/08/18 12:14 Albuterol/ Ipratropium (Albuterol/ Ipratropium) 3 ml Q4H PRN HHN Shortness of Breath 08/09/18 12:15 08/14/18 12:14 Amlodipine Besylate (Norvasc) 10 mg DAILY ORAL 08/10/18 09:00 09/09/18 08:59 08/10/18 08:42 Atorvastatin Calcium (Lipitor) 10 mg BEDTIME ORAL 08/09/18 21:00 09/08/18 20:59 08/09/18 21:40 Carvedilol (Coreg) 37.5 mg EVERY 12 HOURS ORAL 08/09/18 21:00 09/08/18 20:59 08/10/18 08:42 Ceftriaxone Sodium 1 gm/ Dextrose 55 ml @ 110 mls/hr Q24H IVPB 08/09/18 14:00 08/16/18 13:59 08/09/18 14:22 Clopidogrel Bisulfate (Plavix) 75 mg DAILY ORAL 08/10/18 09:00 09/09/18 08:59 08/10/18 08:42 Epoetin Yordan (Procrit (for non ESRD use)) 10,000 units TUE-TUE-TUE SUBQ 08/09/18 21:00 09/08/18 20:59 Gabapentin (Neurontin) 300 mg Q12HR ORAL 08/09/18 21:00 09/08/18 20:59 08/10/18 08:42 Heparin Sodium (Porcine) (Heparin 5000 units/ml) 5,000 units EVERY 12 HOURS SUBQ 08/09/18 21:00 09/08/18 20:59 08/10/18 08:43 Hydralazine HCl (Apresoline) 100 mg Q8HR ORAL 08/10/18 14:00 09/09/18 13:59 Minoxidil (Loniten) 2.5 mg Q4H PRN ORAL sbp> 165 08/09/18 12:15 09/08/18 12:14 Mirtazapine (Remeron) 7.5 mg BEDTIME ORAL 08/09/18 21:00 09/08/18 20:59 08/09/18 21:39 Nateglinide (Starlix) 120 mg TIAC ORAL 08/09/18 16:30 09/08/18 16:29 08/10/18 11:34 Ondansetron HCl (Zofran) 4 mg Q6H PRN IVP Nausea & Vomiting 08/09/18 12:15 09/08/18 12:14 Oxycodone/ Acetaminophen (Percocet 10/325) 1 tab Q4H PRN ORAL moderate-severe (4-10) pain 08/09/18 12:15 08/16/18 12:14 08/10/18 10:23 Pantoprazole (Protonix) 40 mg DAILY ORAL 08/10/18 09:00 09/09/18 08:59 08/10/18 08:42 Polyethylene Glycol (Miralax) 17 gm DAILYPRN PRN ORAL Constipation 08/09/18 12:15 09/08/18 12:14 Trazodone HCl (Desyrel) 50 mg BEDTIME ORAL 08/09/18 21:00 09/08/18 20:59 08/09/18 21:40 Assessment/Plan Status Narrative Hematology Consultation DATE OF CONSULTATION: 08/10/2018 REFERRING PHYSICIAN: Naun Geiger D.O. and Thien Del Valle REASON FOR CONSULTATION: Anemia eval HISTORY OF PRESENT ILLNESS: 53-year-old, female with past medical history significant for history of hypertension, history of CVA, history of congestive heart failure, and history of diabetes who was originally admitted at [facility] for congestive heart failure and increasing shortness of breath. The patient was sent to rehabilitation for continued treatment where the patient found to have an increasing shortness of breath and decreased oxygen saturation. Pleural eff noted. The patient also complained of chest tightness and lower extremity edema. Was brought in to ER. In ER at [facility], the patient found to have a worsening of the kidney function. Also found to be in CHF. Was consequently admitted in the hospital. I was called for management of renal disease and electrolyte imbalance. Also noted to have anemia, poor a1c in the past and heme consulted. She was here last week and just discharged and heme reconsulted. PAST MEDICAL HISTORY: 1. History of CVA with left-sided weakness. 2. History of hypertension. 3. History of diabetes. 4. History of congestive heart failure. 5. History of asthma. ALLERGIES: No known drug allergies. SOCIAL HISTORY: Currently was at a shelter. There is active history of tobacco, alcohol, or drug use. FAMILY HISTORY: Noncontributory. MEDICATIONS: Includin. Epogen 4000 units subcutaneous daily. 2. Atorvastatin 80 mg daily. 3. Hydralazine 100 mg daily. 4. Amlodipine 10 mg daily. 5. Aspirin 81 mg p.o. daily. 6. Carvedilol 37.5 mg daily. 7. Oxycodone 1 tablet p.r.n. pain. 8. Clonidine 0.1 p.r.n. blood pressure more than 160. 9. Ambien 5 mg p.o. daily. 10. Gabapentin 500 mg daily. 11. Tylenol 650 mg q.6 h. p.r.n. pain. 12. Zofran 4 mg p.r.n. nausea or vomiting. 13. Lorazepam 0.5 mg anxiety. 14. D50. REVIEW OF SYSTEMS: GENERAL: She complained of generalized weakness. Denies any fever, chills, or night sweats. HEAD AND NECK: Denies any dysphagia, odynophagia, blurry vision, headache, or neck stiffness. PULMONARY: Complained of mild shortness of breath and cough. No hemoptysis. CARDIOVASCULAR: Complained of chest tightness, orthopnea, PND, and leg swelling. GASTROINTESTINAL: Denies any nausea, vomiting, diarrhea, hematemesis, or hematochezia. GENITOURINARY: Denies any history of premature CAD. PHYSICAL EXAMINATION: Last 24 Hour Vital Signs Last 24 Hour Vital Signs VITAL SIGNS: have been reviewed and are otherwise stable HEAD AND NECK: No JVP. No LAD. No thyromegaly. Extraocular movements intact. Pupils are reactive to light and accommodation. LUNGS: Decreased breathing sounds on both sides. CARDIAC: Regular rate and rhythm. S1-S2. No murmur. No rub. ABDOMEN: Soft, nontender, and nondistended. EXTREMITIES: 1+ edema. No clubbing. No cyanosis. Labs: reviewed Imaging: reviewed ASSESSMENT/RECS: #. Anemia of chronic disease -- patient with ongoing kidney damage, cr is elevated approx 2-2.5 baseline --> anemia panel has been reviewed and tsh, ferritin, tibc, esr, b12, folate, fibrinogen, iron % reviewed --> appreciate nephrology consult --> continue on epogen --> transfuse if hgb is <7 --> hemolysis w/u has been reviewed --> trend hgb 8.9-->8.4-->8.5-->10.7 --> ON EPO SQ AND IRON IV # Leukopenia wbc in the 4-6 range --> hepatitis panel negative, hiv neg --> us abd shows borderline spleen enlargement # Acute versus chronic renal failure. as per renal etiology of acute renal failure is cardiorenal syndrome, prerenal azotemia versus unstable --> bp to improve on current meds --> nephro recs appreciated #. Coagulopathy with elevated inr --> recheck in future prn, now improved #. Congestive heart failure, but at this point the patient seems to be euvolemic. --> as per cardiology #. 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 #. Uncontrolled hypertension. --> now better #. Pleural eff s/p thora Greatly appreciate consultation Amandeep Howell MD Aug 10, 2018 12:56
--- NOTE | 2018-08-10 13:10 | Infectious Diseases Prog Note ---
Assessment/Plan Assessment/Plan A; Leukocytosis Hypoxemia CHF CKD DM type 2 s/p CVA P: Continue Rocephin Subjective ROS Limited/Unobtainable: No Constitutional: Reports: anorexia Respiratory: Reports: shortness of breath, dry cough, other - better Gastrointestinal/Abdominal: Reports: no symptoms Genitourinary: Reports: no symptoms Neurologic: Reports: no symptoms Allergies: Coded Allergies: LISINOPRIL (Verified Allergy, Unknown, 07/16/18) LOSARTAN (Verified Allergy, Unknown, 07/16/18) Objective Vital Signs Last 24 Hour Vital Signs Date Time Temp Pulse Resp B/P (MAP) Pulse Ox O2 Delivery O2 Flow Rate FiO2 08/10/18 11:39 97.5 65 22 140/60 (86) 100 08/10/18 11:39 62 08/10/18 10:53 97.7 08/10/18 09:00 Room Air Room Air 08/10/18 08:42 67 169/76 08/10/18 08:42 67 169/76 08/10/18 08:00 97.7 67 20 169/76 (107) 99 08/10/18 08:00 68 16 Nasal Cannula 3.0 32 08/10/18 07:35 63 08/10/18 06:17 181/82 08/10/18 04:05 71 20 Nasal Cannula 3.0 32 08/10/18 04:00 98.4 70 20 181/82 (115) 98 08/10/18 04:00 70 08/10/18 00:00 98.0 71 20 169/75 (106) 95 08/10/18 00:00 71 08/09/18 22:34 Room Air Room Air 08/09/18 21:41 185/84 08/09/18 21:39 80 185/84 08/09/18 20:00 84 08/09/18 20:00 98.6 80 20 185/84 (117) 95 08/09/18 16:47 97.7 82 22 165/83 (110) 08/09/18 15:33 83 08/09/18 13:09 193/98 Height (Feet): 5 Height (Inches): 2.00 Weight (Pounds): 139 General Appearance: no acute distress HEENT: mucous membranes moist Respiratory/Chest: lungs clear Cardiovascular: normal rate Abdomen: soft, non tender Extremities: other - edema of legs Neurologic/Psychiatric: alert, oriented x 3, responsive, motor weakness, other - left hemiplegia Microbiology Date/Time Source Procedure Growth Status 08/09/18 09:05 Blood Blood Culture - Preliminary NO GROWTH AFTER 24 HOURS Resulted 08/09/18 08:55 Blood Blood Culture - Preliminary NO GROWTH AFTER 24 HOURS Resulted Current Medications Medications (Trade) Dose Ordered Sig/Zara Route PRN Reason Start Time Stop Time Status Last Admin Dose Admin Acetaminophen (Tylenol) 650 mg Q4H PRN ORAL Mild Pain/Temp > 100.5 08/09/18 12:15 09/08/18 12:14 Albuterol/ Ipratropium (Albuterol/ Ipratropium) 3 ml Q4H PRN HHN Shortness of Breath 08/09/18 12:15 08/14/18 12:14 Amlodipine Besylate (Norvasc) 10 mg DAILY ORAL 08/10/18 09:00 09/09/18 08:59 08/10/18 08:42 Atorvastatin Calcium (Lipitor) 10 mg BEDTIME ORAL 08/09/18 21:00 09/08/18 20:59 08/09/18 21:40 Carvedilol (Coreg) 37.5 mg EVERY 12 HOURS ORAL 08/09/18 21:00 09/08/18 20:59 08/10/18 08:42 Ceftriaxone Sodium 1 gm/ Dextrose 55 ml @ 110 mls/hr Q24H IVPB 08/09/18 14:00 08/16/18 13:59 08/09/18 14:22 Clopidogrel Bisulfate (Plavix) 75 mg DAILY ORAL 08/10/18 09:00 09/09/18 08:59 08/10/18 08:42 Epoetin Yordan (Procrit (for non ESRD use)) 10,000 units MON-WED-TUE SUBQ 08/09/18 21:00 09/08/18 20:59 Gabapentin (Neurontin) 300 mg Q12HR ORAL 08/09/18 21:00 09/08/18 20:59 08/10/18 08:42 Heparin Sodium (Porcine) (Heparin 5000 units/ml) 5,000 units EVERY 12 HOURS SUBQ 08/09/18 21:00 09/08/18 20:59 08/10/18 08:43 Hydralazine HCl (Apresoline) 100 mg Q8HR ORAL 08/10/18 14:00 09/09/18 13:59 Minoxidil (Loniten) 2.5 mg Q4H PRN ORAL sbp> 165 08/09/18 12:15 09/08/18 12:14 Mirtazapine (Remeron) 7.5 mg BEDTIME ORAL 08/09/18 21:00 09/08/18 20:59 08/09/18 21:39 Nateglinide (Starlix) 120 mg TIAC ORAL 08/09/18 16:30 09/08/18 16:29 08/10/18 11:34 Ondansetron HCl (Zofran) 4 mg Q6H PRN IVP Nausea & Vomiting 08/09/18 12:15 09/08/18 12:14 Oxycodone/ Acetaminophen (Percocet 10/325) 1 tab Q4H PRN ORAL moderate-severe (4-10) pain 08/09/18 12:15 08/16/18 12:14 08/10/18 10:23 Pantoprazole (Protonix) 40 mg DAILY ORAL 08/10/18 09:00 09/09/18 08:59 08/10/18 08:42 Polyethylene Glycol (Miralax) 17 gm DAILYPRN PRN ORAL Constipation 08/09/18 12:15 09/08/18 12:14 Trazodone HCl (Desyrel) 50 mg BEDTIME ORAL 08/09/18 21:00 09/08/18 20:59 08/09/18 21:40 Jt Rizvi MD Aug 10, 2018 13:10
[2018-08-10] MEDS: HydrALAZINE 50mg tab ORAL SCH ×2 (13:44→21:09)
[2018-08-10] MEDS: cefTRIAXone 1 GM in D5W 55 ML IVPB SCH ×2 (13:44→14:45)
--- NOTE | 2018-08-10 15:22 | Consultation ---
Consult Note Assessment/Plan DICT # [id number] Kevin Gutiérrez MD Aug 10, 2018 15:22
--- NOTE | 2018-08-10 15:44 | NUR ---
CASE MANAGEMENT:REVIEW BIBA FROM HOME CC: CHEST PAIN AND SOB SI:AC/CHR RENAL FAILURE. PLEURAL EFFUSION 98.7 82 18 220/117 87% ON RA WBC+11.5 BUN+37 CR+2.2 TROPONIN(+) 0.092 IS: PLACED ON 10L NON REBREATHER IV HYDRALAZINE IV ZOSYN IV AZITHROMYCIN IV LASIX ASA PO DUONEB HHN CXR BLOOD CX : TO TELEMETRY DCP: PATIENT IS FROM HOME INTERQUAL CRITERIA MET
[2018-08-10 15:52] VITALS: BP 159/67
--- NOTE | 2018-08-10 19:10 | NUR ---
HAND-OFF: Report given to JENNIFER Hamilton.
[2018-08-10 20:00] VITALS: BP 165/71
--- NOTE | 2018-08-10 20:21 | Cardiology Progress Note ---
Assessment/Plan Assessment/Plan 1. Accelerated hypertension, continue hydralazine, carvedilol and amlodipine, will add clonidine 0.1mg po tid. 2. Dyspnea most likely secondary to bilateral pleural effusion, status post right thoracentesis yielding about 500 mL of fluid. 2D echocardiography July 17, 2018 showed normal LV systolic and diastolic function with LVEF of approximately 55%. Continue IV antibiotics, pulmonary toilet, and diuretic therapy. 3. Moderate pulmonary hypertension. 4. Stage 5 CKD. 2D echocardiography has shown small pericardial effusion. 5. Anemia, possible chronic kidney disease. 6. History of CVA with left hemiparesis, consider aspirin and statins. Subjective Subjective Sinus rhythm at rate of 64. Objective Last 24 Hour Vital Signs Date Time Temp Pulse Resp B/P (MAP) Pulse Ox O2 Delivery O2 Flow Rate FiO2 08/10/18 16:20 97.4 08/10/18 15:52 97.4 64 22 159/67 (97) 100 08/10/18 15:39 60 08/10/18 13:44 139/74 08/10/18 11:39 97.5 65 22 140/60 (86) 100 08/10/18 11:39 62 08/10/18 09:00 Room Air Room Air 08/10/18 08:42 67 169/76 08/10/18 08:42 67 169/76 08/10/18 08:00 97.7 67 20 169/76 (107) 99 08/10/18 08:00 68 16 Nasal Cannula 3.0 32 08/10/18 07:35 63 08/10/18 06:17 181/82 08/10/18 04:05 71 20 Nasal Cannula 3.0 32 08/10/18 04:00 98.4 70 20 181/82 (115) 98 08/10/18 04:00 70 08/10/18 00:00 98.0 71 20 169/75 (106) 95 08/10/18 00:00 71 08/09/18 22:34 Room Air Room Air 08/09/18 21:41 185/84 08/09/18 21:39 80 185/84 Intake and Output 08/09/18 08/10/18 18:59 06:59 Intake Total 240 ml Balance 240 ml Intake Oral 240 ml # Voids 2 3 2D Echo: LVEF 65%, Mild MR, Normal LVD, RVSP 56mmHg Laboratory Tests Test 08/10/18 15:31 08/10/18 16:00 Arterial Blood pH 7.323 (7.350-7.450) Arterial Blood Partial Pressure CO2 35.4 mmHg (35.0-45.0) Arterial Blood Partial Pressure O2 128.6 mmHg (75.0-100.0) H Arterial Blood HCO3 18.0 mmol/L (22.0-26.0) L Arterial Blood Oxygen Saturation 97.7 % (95-100) Arterial Blood Base Excess -7.4 (-2-2) L Patrick Test Positive Erythrocyte Sedimentation Rate 82 MM/HR (0-30) H Lactate Dehydrogenase 328 U/L (81-234) H C-Reactive Protein, Quantitative 1.7 mg/dL (0.00-0.90) H Rheumatoid Factor Screen Pending Cyclic Citrullinated Peptide IgG Ab Pending Anti-Nuclear Antibody Screen Pending c-ANCA Titer Pending p-ANCA Titer Pending Microbiology Date/Time Source Procedure Growth Status 08/09/18 09:05 Blood Blood Culture - Preliminary NO GROWTH AFTER 24 HOURS Resulted 08/09/18 08:55 Blood Blood Culture - Preliminary NO GROWTH AFTER 24 HOURS Resulted Objective HEENT: Atraumatic and normocephalic. Anicteric. Pupils are equal, round, and reactive to light and accommodation. Extraocular muscles intact. Poor dentition. NECK: JVP less than 5 cm. No carotid bruit. Carotid upstrokes 2+ bilaterally. LUNGS: Bilateral lower lung crackles. Diminished breath sounds on both lungs and the bases. CARDIOVASCULAR: Normal S1, S2. Regular rate and rhythm. No murmurs, gallops, or rubs. ABDOMEN: Soft, nontender, and nondistended. No hepatosplenomegaly. Positive bowel sounds. EXTREMITIES: No evidence of edema, clubbing, or cyanosis. Kwesi Zee MD Aug 10, 2018 20:21
[2018-08-10] MEDS: TraZODone 50mg tab ORAL SCH (21:09)
[2018-08-11] VITALS: BP 176/75
--- NOTE | 2018-08-11 00:42 | Consultation ---
DATE OF CONSULTATION: 08/09/2018 CARDIOLOGY CONSULTATION CONSULTING PHYSICIAN: Kwesi Zee M.D. REFERRING PHYSICIAN: Eligio Neumann M.D. REASON FOR CONSULTATION: Management of accelerated hypertension in the patient with chronic kidney disease stage 5. HISTORY OF PRESENT ILLNESS: The patient is a very unfortunate 53-year-old female, who presents to the emergency department for evaluation of shortness of breath that started on 08/09/2018. According to EMS, her O2 saturations were low. She was started on oxygen. She did not have any chest pain at the time of arrival of EMS. She was recently discharged from [facility] two days ago and she claims that she was unable to fill her prescription and could not reach to her primary care physician. She started to call chief medical advice. At the time of arrival to the hospital, her blood pressure was 220/117 mmHg and pulse rate was 82. She was afebrile and having O2 saturation of 100%. A recent 2D echocardiography back on 07/26/2018 showed normal LV systolic function with LVEF of about 60% to 65%, increased right atrial pressure at around 15 mmHg and mild to moderate mitral regurgitation and moderate pulmonary hypertension with RVSP of 56 mmHg. She also showed moderate pulmonary regurgitation. Also in the previous admission, she underwent ultrasound-guided thoracentesis of the left side yielding about 500 mL of fluid. She was admitted to telemetry for further evaluation and management of shortness of breath. Cardiology consultation was made at the request of Dr. Neumann for management of accelerated hypertension. PAST MEDICAL HISTORY: Significant for hypertension, diabetes mellitus, CVA in 01/2018 with left hemiparesis, history of peripheral neuropathy, moderate pulmonary hypertension, history of CKD stage 5, and history of small pericardial effusion. PAST SURGICAL HISTORY: Left-sided thoracentesis. ALLERGIES: To lisinopril and losartan. MEDICATIONS: List of medications includes acetaminophen 650 mg q.6 hours p.r.n. pain, amlodipine 10 mg p.o. daily, aspirin 81 mg daily, Lipitor 80 mg p.o. nightly, Dulcolax 10 mg rectal p.r.n. constipation, calcium acetate 667 mg p.o. three times a day, Coreg 37.5 mg twice a day, Plavix 75 mg daily, Colace 100 mg p.o. twice daily, Procrit 4000 units subcutaneously two times a week, vitamin D2 50,000 units by mouth weekly, ferrous sulfate 325 mg twice a day, Lasix 40 mg p.o. twice a day, gabapentin 300 mg three times a day, heparin sodium 5000 units q.12 hours, hydralazine 100 mg q.8 hours, Dilaudid 0.2 mg intravenous q.4 hours p.r.n. breakthrough pain, Lantus insulin 15 units subcutaneously twice daily, Lantus lispro 6 units subcutaneously before meals, iron sucrose 100 mg intravenous push daily, Isordil 40 mg by mouth three times a day, lorazepam 0.5 mg daily as needed anxiety, melatonin 3 mg by mouth at bedtime, mirtazapine 7.5 mg at bedtime, multivitamin one tablet p.o. daily, Nitrostat 0.4 mg sublingual q.5 minutes x3 dose p.r.n. chest pain, Zofran 4 mg intravenous push q.8 hours p.r.n. nausea and vomiting, Roxicodone IR 5 mg oral q.4 hours p.r.n. moderate pain, oxycodone and acetaminophen 10-325 one tablet oral q.4 hours as needed severe pain, MiraLAX 17 g p.o. daily, and trazodone 50 mg p.o. nightly. REVIEW OF SYSTEMS: A 12-system review done essentially negative except what mentioned in the history of present illness. SOCIAL HISTORY: No history of tobacco, alcohol, or illicit drug use. FAMILY HISTORY: No premature coronary artery disease in the first-degree relatives. PHYSICAL EXAMINATION: VITAL SIGNS: Blood pressure was 220/117, respirations of 18, pulse of 82, temperature 98.2 degrees Fahrenheit, and O2 saturation 100% on a nonrebreather . GENERAL: The patient is a very unfortunate 53-year-old female, in no apparent respiratory distress. Alert and oriented x4. HEENT: Atraumatic and normocephalic. Anicteric. Pupils are equal, round, and reactive to light and accommodation. Extraocular muscles intact. NECK: JVP is less than 5 cm. No carotid bruits. Carotid upstrokes 2+ bilaterally. CARDIOVASCULAR: Normal S1 and S2. Regular rate and rhythm. No murmurs, gallops, or rubs. PMI is at fourth intercostal space in the midclavicular line. LUNGS: Diminished breath sounds in the left base. ABDOMEN: Soft, nontender, and nondistended. No hepatosplenomegaly. Positive bowel sounds. EXTREMITIES: No evidence of edema, clubbing, or cyanosis. LABORATORY AND DIAGNOSTIC DATA: Chest x-ray showed interstitial edema increased since last study, cardiomegaly, and no lung volumes. Impression, congestive heart failure. Laboratory findings, WBC 11.5, hemoglobin 10.7, hematocrit 33.4, and platelet count 266,000. Sodium 141, potassium is 4.3, chloride 111, bicarbonate 18, BUN 37, creatinine 2.2, glucose is 209, and calcium is 8.7. Troponin I is 0.092. ProBNP was over 35,000. ASSESSMENT AND PLAN: The patient is a very unfortunate 53-year-old female, seen in Cardiology consultation at request of Dr. Neumann. 1. Dyspnea most likely secondary to volume overload due to chronic kidney disease stage 5 with associated bilateral pleural effusion. A 2D echocardiography has shown normal LV systolic and diastolic function with LVEF of approximately 55%. The patient may require aggressive diuresis, Nephrology consultation. This patient most likely has acute heart failure with preserved ejection fraction. We would like to consider metoprolol. 2. Bilateral pleural effusion, status post right thoracentesis. 3. Moderate pulmonary hypertension, likely secondary to chronic kidney disease, stage 5. 4. History of anemia. 5. History of cerebrovascular accident with left hemiparesis. Continue aspirin and statin. I would like to thank, Dr. Neumann, for allowing me to participate in the care of this patient. Kwesi Zee M.D. DR: JAROCHO JOB#: [id number] CC:
--- NOTE | 2018-08-11 00:42 | Consultation ---
DATE OF CONSULTATION: 08/10/2018 PULMONARY CONSULTATION: CONSULTING PHYSICIAN: Kevin Gutiérrez M.D. REFERRING PHYSICIAN: Eligio Neumann M.D. REASON FOR CONSULTATION: Shortness of breath. HISTORY OF PRESENT ILLNESS: The patient is a 53-year-old female recently admitted with pleural effusion that was transudative and now presenting with shortness of breath, lower extremity edema, increased O2 needs. No cough, wheezing, or congestion. No fevers or chills. No headache, dizziness, or other complaints. PAST MEDICAL HISTORY: 1. Diabetes. 2. Hypertension. 3. CVA. 4. Left-sided hemiparesis. 5. Solitary kidney. 6. CKD. 7. Diabetic nephropathy. ALLERGIES: Lisinopril and losartan. MEDICATIONS: Prior to admission medications reviewed. Current medications reviewed. SOCIAL HISTORY: She denies tobacco, alcohol, or drug use. FAMILY HISTORY: Noncontributory. REVIEW OF SYSTEMS: Negative other than the history of present illness. PHYSICAL EXAMINATION: VITAL SIGNS: Temperature 97.5, pulse 65, blood pressure 140/60, respiratory rate 20, and saturating 100% on room air. GENERAL: She is a well-developed, well-nourished female, in no acute distress. Awake, alert, and oriented x3. HEENT: Normocephalic and atraumatic. Oropharynx with moist membranes. NECK: Supple without lymphadenopathy. CHEST: Clear with decreased breath sounds. HEART: Regular rate and rhythm. ABDOMEN: Soft and nontender. EXTREMITIES: No cyanosis, clubbing. There is 1+ to 2+ edema. ANCILLARY DATA: White count 11.5, hemoglobin 10.7, and platelet count 266. Sodium 141, potassium 4.2, chloride 111, bicarb 18, BUN 37, and creatinine 2.2. Creatinine at the time of the last hospitalization was actually higher than that, so this to the best extent. Glucose 209. Troponin 0.092. CK 471. Calcium 8.7. Total bilirubin 0.4, AST 24, and ALT 39. Lactic acid 1.4. Chest x-ray done during this admission shows interstitial edema. No significant effusions are noted. ASSESSMENT: The patient is a 53-year-old female, history of solitary kidney, CKD stage 4, hypertension, hyperlipidemia, prior admission with pleural effusions likely congestive heart failure, and anemia presenting with shortness of breath likely decompensated heart failure. The patient does not clinically appear infected, is afebrile, has only a mild leukocytosis. She is being treated for possible pneumonia with Rocephin under the care of the Infectious Disease service. PROBLEM LIST: 1. Mild hypoxemia. 2. Questionable history of asthma. 3. Likely decompensated heart failure. 4. Prior CT scan 07/19/2018 with evidence of mediastinal, hilar, and axillary lymphadenopathy. 5. History of transudative pleural effusion. 6. Pulmonary hypertension. 7. CKD. 8. Edema. 9. Prior CVA. TREATMENT PLAN: 1. Optimize pulmonary hygiene/mobilize as tolerated. 2. Titrate FiO2 to keep saturations greater than 90%. 3. P.r.n. bronchodilators. 4. Monitor volumes and renal function, consider diuresis. 5. We will repeat an echocardiogram. 6. We will check a repeat CT scan of the chest to further assess lymphadenopathy. 7. Check an LDH. 8. The patient may need further workup as an outpatient including endobronchial ultrasound versus mediastinoscopy. 9. Antibiotics per ID. 10. Monitor for signs of worsening infectious process. 11. Aspiration precautions. 12. Swallow evaluation. 13. DVT prophylaxis heparin subcutaneous. 14. The patient should have outpatient pulmonary workup including full PFTs. 15. We will check an ABG. Kevin Gutiérrez M.D. DR: RAJ JOB#: [id number] CC:
[2018-08-11 01:38] LABS: APPEARANCE,URINE SLIGHTLY CLOUDY; BILIRUBIN, URINE NEGATIVE (NEGATIVE); COLOR,URINE PALE YELLOW; GLUCOSE, URINE (UA) 2+ (NEGATIVE); KETONES,URINE NEGATIVE (NEGATIVE); LEUKOCYTE ESTERASE ,URINE 1+ (NEGATIVE); NITRITE,URINE NEGATIVE (NEGATIVE); PH,URINE 5 (4.5-8.0); PROTEIN,URINE 4+ (NEGATIVE); UROBILINOGEN,URINE NORMAL MG/DL (0.0-1.0)
--- NOTE | 2018-08-11 02:00 | Consultation ---
DATE OF CONSULTATION: 08/10/2018 INCOMPLETE DICTATION NEPHROLOGY CONSULTATION CONSULTING PHYSICIAN: Nabila Park M.D. REFERRING PHYSICIAN: REASON FOR CONSULTATION: Acute on chronic renal failure. HISTORY OF PRESENT ILLNESS: The patient is an unfortunate 53-year-old female, well known to me with past medical history significant for history of chronic kidney disease stage 4, history of hypertension, history of congestive heart failure, history of diabetes, history of CVA, history of solitary kidney, history of diabetic nephropathy who presented to [facility] complaining of increasing shortness of breath and recurrent pleural effusion. The patient was found to have worsening of the kidney function. I was called for management of renal disease and electrolyte imbalance. PAST MEDICAL HISTORY: Includin. History of chronic kidney disease stage . 2. History of hypertension. 3. History of dyslipidemia. 4. 5. History of CVA. 6. History of diabetic neuropathy. 7. Diabetic nephropathy. ALLERGIES: Allergic to losartan and lisinopril. HOME MEDICATIONS: Includin. Azithromycin. 2. Zosyn. 3. Hydralazine. 4. Lasix. 5. Morphine. 6. Sulfa. 7. Albuterol. SOCIAL HISTORY: She lives at home. There is no history of tobacco, alcohol, or drug use. FAMILY HISTORY: Noncontributory. REVIEW OF SYSTEMS: GENERAL: She complained of generalized weakness. Denies any fever, chills, or night sweats. HEAD AND NECK: Denies any dysphagia, odynophagia, blurry vision, headache, or neck stiffness. PULMONARY: Denies any shortness of breath. No cough. No sputum. CARDIOVASCULAR: Denies any chest pain or palpitations. GASTROINTESTINAL: Denies any nausea, vomiting, diarrhea, hematemesis, or hematochezia. GENITOURINARY: Denies any dysuria, frequency, or hematuria. PHYSICAL EXAMINATION: VITAL SIGNS: Temperature of 98 degrees, blood pressure of 181/82, pulse rate of 80, respiratory rate of 18. HEAD AND NECK: No JVP. No LAD. No thyromegaly. Extraocular movement intact. Pupils are reactive to light and accommodation. LUNGS: Clear to auscultation. Decreased breathing sound on the both sides. CARDIAC: Regular rate and rhythm. S1 and S2. No murmur. No rub. ABDOMEN: Soft, nontender, and nondistended. EXTREMITIES: Have 1+ edema. No clubbing. No cyanosis. LABORATORY AND DIAGNOSTIC DATA: Sodium 141, potassium 4.3, chloride 111, bicarbonate 18, BUN of 37, creatinine of 2.2, glucose of 209. AST of 24, ALT of 39, alkaline phosphatase of 105. BNP of more than 3500. Total protein 6.9, albumin of 2.9. CBC revealed WBC count of 11.5, hemoglobin of 10.7, hematocrit of 33.5, platelet count of 226. ASSESSMENT: 1. Acute on chronic renal failure. 2. CHF exacerbation. Nabila Park M.D. DR: Gordon JOB#: [id number] CC:
[2018-08-11 04:00] VITALS: BP 164/77
[2018-08-11] MEDS: HydrALAZINE 50mg tab ORAL SCH ×3 (05:32→21:14)
--- NOTE | 2018-08-11 07:15 | NUR ---
HAND-OFF: Report given to JENNIFER Navarro. Pt is in stable condition; plan of care endorsed.
[2018-08-11 08:00] VITALS: BP 150/73
[2018-08-11 08:21] LABS: BASOPHILS % (AUTO) 0.4 % (0.0-2.0); EOSINOPHILS % (AUTO) 5.4 % (0.0-3.0); HEMATOCRIT 26.4 % (37.0-47.0); HEMOGLOBIN 8.6 G/DL (12.0-16.0); LYMPHOCYTES % (AUTO) 27.2 % (20.0-45.0); MEAN CORPUSCULAR VOLUME 99 FL (80-99); PLATELET COUNT 185 K/UL (150-450); RED BLOOD COUNT 2.66 M/UL (4.20-5.40); RED CELL DISTRIBUTION WIDTH 13.7 % (11.6-14.8); WHITE BLOOD COUNT 4.4 K/UL (4.8-10.8)
[2018-08-11 08:39] LABS: ALANINE AMINOTRANSFERASE 26 U/L (12-78); ALBUMIN 2.2 G/DL (3.4-5.0); ALBUMIN/GLOBULIN RATIO 0.7 (1.0-2.7); ALKALINE PHOSPHATASE 79 U/L (46-116); ANION GAP 11 mmol/L (5-15); ASPARTATE AMINO TRANSFERASE 11 U/L (15-37); BILIRUBIN,TOTAL 0.2 MG/DL (0.2-1.0); BLOOD UREA NITROGEN 43 mg/dL (7-18); CALCIUM 7.7 MG/DL (8.5-10.1); CARBON DIOXIDE 20 MMOL/L (21-32); CHLORIDE 112 MMOL/L (98-107); CREATININE 2.8 MG/DL (0.55-1.30); POTASSIUM 3.9 MMOL/L (3.5-5.1); SODIUM 142 MMOL/L (136-145)
--- NOTE | 2018-08-11 09:10 | General Progress Note ---
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 D/w Dr. Hagen and he concurred. Subjective Date patient seen: Aug 11, 2018 Time patient seen: 07:15 - am Allergies: Coded Allergies: LISINOPRIL (Verified Allergy, Unknown, 07/16/18) LOSARTAN (Verified Allergy, Unknown, 07/16/18) Subjective REVIEW OF SYSTEMS: Denies rash, fever, chills, sweating, dizziness, drowsiness, blurred vision, sore throat, change in her weight. No shortness of breath at this time. No chest pain, palpitations, or cough. No nausea, vomiting, diarrhea, or blood in the stool or urine. No bowel or bladder incontinence. She is complaining of generalized body pain. SUBJECTIVE: Patient is in bed and reports moderate pain at this time has taken 4 doses of Percocet in the last 24hrs. She has no new complaints at this time. Objective Last 24 Hour Vital Signs Date Time Temp Pulse Resp B/P (MAP) Pulse Ox O2 Delivery O2 Flow Rate FiO2 08/11/18 05:32 164/77 08/11/18 05:31 164/77 08/11/18 04:00 98.0 66 19 164/77 (106) 93 08/11/18 04:00 67 08/11/18 00:00 98.9 71 19 176/75 (108) 94 08/11/18 00:00 73 08/11/18 00:00 176/75 08/10/18 22:07 150/68 08/10/18 21:26 73 22 Room Air 08/10/18 21:09 165/71 08/10/18 21:08 70 165/71 08/10/18 21:00 Room Air Room Air 08/10/18 20:00 99.2 70 19 165/71 (102) 96 08/10/18 20:00 68 08/10/18 16:20 97.4 08/10/18 15:52 97.4 64 22 159/67 (97) 100 08/10/18 15:39 60 08/10/18 13:44 139/74 08/10/18 11:39 97.5 65 22 140/60 (86) 100 08/10/18 11:39 62 Intake and Output 08/10/18 08/11/18 19:00 07:00 Intake Total 55 ml 100 ml Balance 55 ml 100 ml Intake Oral 100 ml IV Total 55 ml # Voids 2 3 Laboratory Tests 08/10/18 15:31: Arterial Blood pH 7.323L, Arterial Blood Partial Pressure CO2 35.4, Arterial Blood Partial Pressure O2 128.6H, Arterial Blood HCO3 18.0L, Arterial Blood Oxygen Saturation 97.7, Arterial Blood Base Excess -7.4L, Patrick Test Positive 08/10/18 16:00: Erythrocyte Sedimentation Rate 82H, Lactate Dehydrogenase 328H, C-Reactive Protein, Quantitative 1.7H, Rheumatoid Factor Screen 38.4H, Cyclic Citrullinated Peptide IgG Ab [Pending], Anti-Nuclear Antibody Screen [Pending], c-ANCA Titer [Pending], p-ANCA Titer [Pending] 08/11/18 00:25: Urine Color Pale yellow, Urine Appearance Slightly cloudy, Urine pH 5, Urine Specific [place] 1.015, Urine Protein 4+H, Urine Glucose (UA) 2+H, Urine Ketones Negative, Urine Blood 1+H, Urine Nitrite Negative, Urine Bilirubin Negative, Urine Urobilinogen Normal, Urine Leukocyte Esterase 1+H, Urine RBC 0-2 , Urine WBC 2-4, Urine Squamous Epithelial Cells Few, Urine Bacteria Few, Urine Eosinophils None seen, Urine Random Creatinine [Pending], Urine Random Microalbumin [Pending], Urine Random Total Protein 1865H, Urine Random Sodium 34 , Urine Creatinine 156.4H, Urine Microalbumin/Creatinine Ratio [Pending] 08/11/18 07:25: White Blood Count 4.4L, Red Blood Count 2.66L, Hemoglobin 8.6L, Hematocrit 26.4L , Mean Corpuscular Volume 99, Mean Corpuscular Hemoglobin 32.5H, Mean Corpuscular Hemoglobin Concent 32.7, Red Cell Distribution Width 13.7, Platelet Count 185, Mean Platelet Volume 6.3L, Neutrophils (%) (Auto) 58.0, Lymphocytes ( %) (Auto) 27.2, Monocytes (%) (Auto) 9.0, Eosinophils (%) (Auto) 5.4H, Basophils (%) (Auto) 0.4, Sodium Level 142, Potassium Level 3.9, Chloride Level 112H, Carbon Dioxide Level 20L, Anion Gap 11, Blood Urea Nitrogen 43H, Creatinine 2.8H, Estimat Glomerular Filtration Rate 21.2, Glucose Level 215H, Calcium Level 7.7L, Total Bilirubin 0.2, Aspartate Amino Transf (AST/SGOT) 11L, Alanine Aminotransferase (ALT/SGPT) 26, Alkaline Phosphatase 79, Total Protein 5.4L, Albumin 2.2L, Globulin 3.2, Albumin/Globulin Ratio 0.7L Height (Feet): 5 Height (Inches): 2.00 Weight (Pounds): 139 Objective GENERAL: Alert, awake, and oriented. LUNGS: Decreased breath sounds bilaterally. HEART: S1 and S2 regular. ABDOMEN: Benign. EXTREMITIES: No cyanosis. No clubbing. NEURO: No changes. Kwabena Verduzco Aug 11, 2018 09:10
[2018-08-11] MEDS: Carvedilol 12.5mg tab ORAL SCH ×2 (09:41→21:14)
[2018-08-11] MEDS: Heparin 5000 units/ml inj SUBQ SCH ×2 (09:43→21:15)
--- NOTE | 2018-08-11 10:55 | NUR ---
ST NOTE: BEDSIDE SWALLOW EVAL RECEIVED BEDSIDE SWALLOW EVAL ORDER CHART REVIEWED PRIOR THE EVALUATION PT IS A 53-YEAR-OLD FEMALE WHO WAS ADMITTED DUE TO SHORTNESS OF BREATH. DYSPHAGIA RISK FACTORS: CVA W/LEFT SIDED HEMIPARESIS(01/2018), CHF, HTN, DMII, PSYCH(DEPRESSION AND ANXIETY), RENAL DZ, HEART ATTACK. PER CXR: SUSPECTED CHF PLOF: PT RESIDES AT HOME WITH FAMILY. CURRENT STATUS: PT SEEN AT BEDSIDE IN AM WITH KYA RODRIGUEZ, PRESENTED. PT ALERT, REQUIRED MAX ENCOURAGEMENT TO PARTICIPATE. GIVEN PO TRIALS: THIN(LDR-VHBH-SCVN), PUREE(TSP-SELF) AND MASTICATED SOLID, WHOLE PILLS. INITIAL IMPRESSION: PROBABLE MILD OR WORSENED OROPHARYNGEAL DYSPHAGIA SUSPECTED MILD L-SIDED FACIAL WEAKNESS L-SIDED WEAKNESS POOR UPPER DENTITION. SLOW BUT FUNCTIONAL MASTICATION TIME, MILD INCREASED ORAL TRANSIT TIME AND OROPHARYNGEAL TRANSIT TIME, FAIR TO GOOD LARYNGEAL ELEVATION, NO OVERT S/S OF ASPIRATION. DUE TO PT HAS H/O CVA, PT HAS RISK FOR SILENT ASPIRATION. PT WILL BENEFIT FROM VIDEOSWALLOW STUDY TO R/O (SILENT) ASPIRATION RISK AND ETIOLOGY, HOWEVER, PT MAY REFUSE. WILL FOLLOW UP. RECOMMENDATIONS: 1. CONTINUE RENAL REGULAR WITH THIN LIQUIDS DIET 2. ASPIRATION/REFLUX PRECAUTION 3. VIDEOSWALLOW STUDY ONLY IF PT IS WILLING TO PARTICIPATE IP OR OP. D/W PT AND KYA RODRIGUEZ POSTED ASPIRATION/REFLUX PRECAUTIONS SIGN.
--- NOTE | 2018-08-11 11:23 | Nephrology Progress Note ---
Assessment/Plan Assessment 1.MICHELLE 2.CKD 3.HTN 4.Acidosis 5.MILLA Plan PLAN Start bicitra 30 ml po bid check phos ,PTH monitoring renal function avoid NSAID Subjective Constitutional: Reports: no symptoms HEENT: Reports: no symptoms Genitourinary: Reports: no symptoms Neurologic/Psychiatric: Reports: no symptoms Subjective alert and awake she is very depression Objective Objective Last 24 Hour Vital Signs Date Time Temp Pulse Resp B/P (MAP) Pulse Ox O2 Delivery O2 Flow Rate FiO2 08/11/18 09:41 63 156/70 08/11/18 09:41 63 156/70 08/11/18 05:32 164/77 08/11/18 05:31 164/77 08/11/18 04:00 98.0 66 164/77 (106) 93 08/11/18 04:00 67 08/11/18 00:00 98.9 71 19 176/75 (108) 94 08/11/18 00:00 73 08/11/18 00:00 176/75 08/10/18 22:07 150/68 08/10/18 21:26 73 22 Room Air 08/10/18 21:09 165/71 08/10/18 21:08 70 165/71 08/10/18 21:00 Room Air Room Air 08/10/18 20:00 99.2 70 19 165/71 (102) 96 08/10/18 20:00 68 08/10/18 16:20 97.4 08/10/18 15:52 97.4 64 22 159/67 (97) 100 08/10/18 15:39 60 08/10/18 13:44 139/74 08/10/18 11:39 97.5 65 22 140/60 (86) 100 08/10/18 11:39 62 Intake and Output 08/10/18 08/11/18 19:00 07:00 Intake Total 55 ml 100 ml Balance 55 ml 100 ml Intake Oral 100 ml IV Total 55 ml # Voids 2 3 Laboratory Tests 08/10/18 15:31: Arterial Blood pH 7.323L, Arterial Blood Partial Pressure CO2 35.4, Arterial Blood Partial Pressure O2 128.6H, Arterial Blood HCO3 18.0L, Arterial Blood Oxygen Saturation 97.7, Arterial Blood Base Excess -7.4L, Patrick Test Positive 08/10/18 16:00: Erythrocyte Sedimentation Rate 82H, Lactate Dehydrogenase 328H, C-Reactive Protein, Quantitative 1.7H, Rheumatoid Factor Screen 38.4H, Cyclic Citrullinated Peptide IgG Ab [Pending], Anti-Nuclear Antibody Screen [Pending], c-ANCA Titer [Pending], p-ANCA Titer [Pending] 08/11/18 00:25: Urine Color Pale yellow, Urine Appearance Slightly cloudy, Urine pH 5, Urine Specific [place] 1.015, Urine Protein 4+H, Urine Glucose (UA) 2+H, Urine Ketones Negative, Urine Blood 1+H, Urine Nitrite Negative, Urine Bilirubin Negative, Urine Urobilinogen Normal, Urine Leukocyte Esterase 1+H, Urine RBC 0-2 , Urine WBC 2-4, Urine Squamous Epithelial Cells Few, Urine Bacteria Few, Urine Eosinophils None seen, Urine Random Creatinine [Pending], Urine Random Microalbumin [Pending], Urine Random Total Protein 1865H, Urine Random Sodium 34 , Urine Creatinine 156.4H, Urine Microalbumin/Creatinine Ratio [Pending] 08/11/18 07:25: White Blood Count 4.4L, Red Blood Count 2.66L, Hemoglobin 8.6L, Hematocrit 26.4L , Mean Corpuscular Volume 99, Mean Corpuscular Hemoglobin 32.5H, Mean Corpuscular Hemoglobin Concent 32.7, Red Cell Distribution Width 13.7, Platelet Count 185, Mean Platelet Volume 6.3L, Neutrophils (%) (Auto) 58.0, Lymphocytes ( %) (Auto) 27.2, Monocytes (%) (Auto) 9.0, Eosinophils (%) (Auto) 5.4H, Basophils (%) (Auto) 0.4, Sodium Level 142, Potassium Level 3.9, Chloride Level 112H, Carbon Dioxide Level 20L, Anion Gap 11, Blood Urea Nitrogen 43H, Creatinine 2.8H, Estimat Glomerular Filtration Rate 21.2, Glucose Level 215H, Calcium Level 7.7L, Total Bilirubin 0.2, Aspartate Amino Transf (AST/SGOT) 11L, Alanine Aminotransferase (ALT/SGPT) 26, Alkaline Phosphatase 79, Total Protein 5.4L, Albumin 2.2L, Globulin 3.2, Albumin/Globulin Ratio 0.7L Height (Feet): 5 Height (Inches): 2.00 Weight (Pounds): 139 Objective HEAD AND NECK: No JVP. No LAD. No thyromegaly. Extraocular movement intact. Pupils are reactive to light and accommodation. LUNGS: Clear to auscultation. Decreased breathing sound on the both sides. CARDIAC: Regular rate and rhythm. S1 and S2. No murmur. No rub. ABDOMEN: Soft, nontender, and nondistended. EXTREMITIES: Have 1+ edema. No clubbing. No cyanosis. Nabila Park MD Aug 11, 2018 11:23
[2018-08-11 12:00] VITALS: BP 142/75
[2018-08-11 12:05] LABS: % IRON SATURATION 33 % (15-50); IRON 46 ug/dL (50-175); TOTAL IRON BINDING CAPACITY 139 ug/dL (250-450)
--- NOTE | 2018-08-11 12:19 | NUR ---
REHAB MED PT NOTE CONSULT ERMELINDA العراقي COMPLTED, PATIENT WILL BENEFIT FROM SKILLED PT DURING STAY FOR RETURN TO [facility]. RECOMMEND HOME VS SNF AT [place]. PATIENT VERY MOTIVATED FOR PT AND TO RETURN HOME. PATIENT LIVES INDEPENDENTLY AT HOME AT [place]. RECOMMEND MOTORIZED WHEELCHAIR FOR MOBILITY DUE TO LEFT SIDE WEAKNESS AND INABILITY TO SAFELY MOVE AROUND COMMUNITY FOR DOCTORS APPOINTMENTS AND ADLS. PLAN OF CARE INITIATED. LEANNA SANTIAGO PT DPT Addendum: 08/11/18 at 1220 by LEANNA SANTIAGO PT Amended: Links added.
--- NOTE | 2018-08-11 13:43 | NUR ---
RD ASSESSMENT & RECOMMENDATIONS SEE CARE ACTIVITY FOR COMPLETE ASSESSMENT DAILY ESTIMATED NEEDS: Needs based on Renal, DM, cardiac 55.5kg adj 25-30 kcals/kg 7095-2567 total kcals .8-1.2 g protein/kg 44-67 g total protein 25-30 mL/kg 8361-1492 total fluid mLs NUTRITION DIAGNOSIS: Altered nutrition related lab values r/t renal dysfunction, DM, and cardiac history as evidenced by elev creat (2.8), elev Phos (5.0), elev BNP (>83944), elev BP, elev BGs (215 209). 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
--- NOTE | 2018-08-11 14:06 | Infectious Diseases Prog Note ---
Assessment/Plan Assessment/Plan A; Leukocytosis resolved Hypoxemia CHF CKD DM type 2 s/p CVA P: Discontinue Rocephin Observe off antibiotic Subjective ROS Limited/Unobtainable: Yes Constitutional: Reports: no symptoms Respiratory: Reports: shortness of breath, other - better Allergies: Coded Allergies: LISINOPRIL (Verified Allergy, Unknown, 07/16/18) LOSARTAN (Verified Allergy, Unknown, 07/16/18) Objective Vital Signs Last 24 Hour Vital Signs Date Time Temp Pulse Resp B/P (MAP) Pulse Ox O2 Delivery O2 Flow Rate FiO2 08/11/18 12:00 97.8 60 18 142/75 (97) 96 08/11/18 12:00 62 08/11/18 09:41 63 156/70 08/11/18 09:41 63 156/70 08/11/18 09:00 Room Air Room Air 08/11/18 08:00 64 08/11/18 08:00 98.4 63 19 150/73 (98) 95 08/11/18 05:32 164/77 08/11/18 05:31 164/77 08/11/18 04:00 98.0 66 19 164/77 (106) 93 08/11/18 04:00 67 08/11/18 00:00 98.9 71 19 176/75 (108) 94 08/11/18 00:00 73 08/11/18 00:00 176/75 08/10/18 22:07 150/68 08/10/18 21:26 73 22 Room Air 08/10/18 21:09 165/71 08/10/18 21:08 70 165/71 08/10/18 21:00 Room Air Room Air 08/10/18 20:00 99.2 70 19 165/71 (102) 96 08/10/18 20:00 68 08/10/18 16:20 97.4 08/10/18 15:52 97.4 64 22 159/67 (97) 100 08/10/18 15:39 60 Height (Feet): 5 Height (Inches): 2.00 Weight (Pounds): 139 General Appearance: no acute distress HEENT: mucous membranes moist Respiratory/Chest: lungs clear Cardiovascular: normal rate Abdomen: soft, non tender Extremities: other - edema of legs Microbiology Date/Time Source Procedure Growth Status 08/09/18 09:05 Blood Blood Culture - Preliminary NO GROWTH AFTER 24 HOURS Resulted 08/09/18 08:55 Blood Blood Culture - Preliminary NO GROWTH AFTER 24 HOURS Resulted Laboratory Tests Test 08/10/18 15:31 08/10/18 16:00 08/11/18 00:25 08/11/18 07:25 Arterial Blood pH 7.323 (7.350-7.450) Arterial Blood Partial Pressure CO2 35.4 mmHg (35.0-45.0) Arterial Blood Partial Pressure O2 128.6 mmHg (75.0-100.0) H Arterial Blood HCO3 18.0 mmol/L (22.0-26.0) L Arterial Blood Oxygen Saturation 97.7 % (95-100) Arterial Blood Base Excess -7.4 (-2-2) L Patrick Test Positive Erythrocyte Sedimentation Rate 82 MM/HR (0-30) H Lactate Dehydrogenase 328 U/L (81-234) H C-Reactive Protein, Quantitative 1.7 mg/dL (0.00-0.90) H Rheumatoid Factor Screen 38.4 IU/mL (0.0-13.9) H Cyclic Citrullinated Peptide IgG Ab Pending Anti-Nuclear Antibody Screen Pending c-ANCA Titer Pending p-ANCA Titer Pending Urine Color Pale yellow Urine Appearance Slightly cloudy Urine pH 5 (4.5-8.0) Urine Specific [place] 1.015 (1.005-1.035) Urine Protein 4+ (NEGATIVE) H Urine Glucose (UA) 2+ (NEGATIVE) H Urine Ketones Negative (NEGATIVE) Urine Blood 1+ (NEGATIVE) H Urine Nitrite Negative (NEGATIVE) Urine Bilirubin Negative (NEGATIVE) Urine Urobilinogen Normal MG/DL (0.0-1.0) Urine Leukocyte Esterase 1+ (NEGATIVE) H Urine RBC 0-2 /HPF (0 - 2) Urine WBC 2-4 /HPF (0 - 2) Urine Squamous Epithelial Cells Few /LPF (NONE/OCC) Urine Bacteria Few /HPF (NONE) Urine Eosinophils None seen (NONE SEEN) Urine Random Creatinine Pending Urine Random Microalbumin Pending Urine Random Total Protein 1865 MG/DL (< 11.9) H Urine Random Sodium 34 mmol/L (20-110) Urine Creatinine 156.4 MG/DL (30.0-125.0) H Urine Microalbumin/Creatinine Ratio Pending White Blood Count 4.4 K/UL (4.8-10.8) L Red Blood Count 2.66 M/UL (4.20-5.40) L Hemoglobin 8.6 G/DL (12.0-16.0) L Hematocrit 26.4 % (37.0-47.0) L Mean Corpuscular Volume 99 FL (80-99) Mean Corpuscular Hemoglobin 32.5 PG (27.0-31.0) H Mean Corpuscular Hemoglobin Concent 32.7 G/DL (32.0-36.0) Red Cell Distribution Width 13.7 % (11.6-14.8) Platelet Count 185 K/UL (150-450) Mean Platelet Volume 6.3 FL (6.5-10.1) L Neutrophils (%) (Auto) 58.0 % (45.0-75.0) Lymphocytes (%) (Auto) 27.2 % (20.0-45.0) Monocytes (%) (Auto) 9.0 % (1.0-10.0) Eosinophils (%) (Auto) 5.4 % (0.0-3.0) H Basophils (%) (Auto) 0.4 % (0.0-2.0) Sodium Level 142 MMOL/L (136-145) Potassium Level 3.9 MMOL/L (3.5-5.1) Chloride Level 112 MMOL/L (98-107) H Carbon Dioxide Level 20 MMOL/L (21-32) L Anion Gap 11 mmol/L (5-15) Blood Urea Nitrogen 43 mg/dL (7-18) H Creatinine 2.8 MG/DL (0.55-1.30) H Estimat Glomerular Filtration Rate 21.2 mL/min (>60) Glucose Level 215 MG/DL (74-106) H Calcium Level 7.7 MG/DL (8.5-10.1) L Phosphorus Level 5.0 MG/DL (2.5-4.9) H Iron Level 46 ug/dL (50-175) L Total Iron Binding Capacity 139 ug/dL (250-450) L Percent Iron Saturation 33 % (15-50) Unsaturated Iron Binding 93 ug/dL (112-346) L Total Bilirubin 0.2 MG/DL (0.2-1.0) Aspartate Amino Transf (AST/SGOT) 11 U/L (15-37) L Alanine Aminotransferase (ALT/SGPT) 26 U/L (12-78) Alkaline Phosphatase 79 U/L (46-116) Total Protein 5.4 G/DL (6.4-8.2) L Albumin 2.2 G/DL (3.4-5.0) L Globulin 3.2 g/dL Albumin/Globulin Ratio 0.7 (1.0-2.7) L Test 08/11/18 12:08 Calcium (Send out) Pending Vitamin D 25-Hydroxy Pending 25-Hydroxy Vitamin D2 Pending 25-Hydroxy Vitamin D3 Pending Parathyroid Hormone (Intact) Pending Current Medications Medications (Trade) Dose Ordered Sig/Zara Route PRN Reason Start Time Stop Time Status Last Admin Dose Admin Acetaminophen (Tylenol) 650 mg Q4H PRN ORAL Mild Pain/Temp > 100.5 08/09/18 12:15 09/08/18 12:14 Albuterol/ Ipratropium (Albuterol/ Ipratropium) 3 ml Q4H PRN HHN Shortness of Breath 08/09/18 12:15 08/14/18 12:14 Amlodipine Besylate (Norvasc) 10 mg DAILY ORAL 08/10/18 09:00 09/09/18 08:59 08/11/18 09:41 Atorvastatin Calcium (Lipitor) 10 mg BEDTIME ORAL 08/09/18 21:00 09/08/18 20:59 08/10/18 21:09 Carvedilol (Coreg) 37.5 mg EVERY 12 HOURS ORAL 08/09/18 21:00 09/08/18 20:59 08/11/18 09:41 Ceftriaxone Sodium 1 gm/ Dextrose 55 ml @ 110 mls/hr Q24H IVPB 08/09/18 14:00 08/16/18 13:59 08/10/18 14:45 Clonidine HCl (Catapres Tab) 0.1 mg EVERY 8 HOURS ORAL 08/10/18 22:00 09/09/18 21:59 08/11/18 05:31 Clopidogrel Bisulfate (Plavix) 75 mg DAILY ORAL 08/10/18 09:00 09/09/18 08:59 08/11/18 09:40 Epoetin Yordan (Procrit (for non ESRD use)) 5,000 units TUE-WED-FRI SUBQ 08/11/18 21:00 09/10/18 20:59 Gabapentin (Neurontin) 300 mg Q12HR ORAL 08/09/18 21:00 09/08/18 20:59 08/11/18 09:40 Heparin Sodium (Porcine) (Heparin 5000 units/ml) 5,000 units EVERY 12 HOURS SUBQ 08/09/18 21:00 09/08/18 20:59 08/11/18 09:43 Hydralazine HCl (Apresoline) 100 mg Q8HR ORAL 08/10/18 14:00 09/09/18 13:59 08/11/18 05:32 Minoxidil (Loniten) 2.5 mg Q4H PRN ORAL sbp> 165 08/09/18 12:15 09/08/18 12:14 08/11/18 00:00 Mirtazapine (Remeron) 7.5 mg BEDTIME ORAL 08/09/18 21:00 09/08/18 20:59 08/10/18 21:09 Nateglinide (Starlix) 120 mg TIAC ORAL 08/09/18 16:30 09/08/18 16:29 08/11/18 12:38 Ondansetron HCl (Zofran) 4 mg Q6H PRN IVP Nausea & Vomiting 08/09/18 12:15 09/08/18 12:14 Oxycodone/ Acetaminophen (Percocet 10/325) 1 tab Q4H PRN ORAL moderate-severe (4-10) pain 08/09/18 12:15 08/16/18 12:14 08/11/18 09:41 Pantoprazole (Protonix) 40 mg DAILY ORAL 08/10/18 09:00 09/09/18 08:59 08/11/18 09:40 Polyethylene Glycol (Miralax) 17 gm DAILYPRN PRN ORAL Constipation 08/09/18 12:15 09/08/18 12:14 Sodium Citrate (Bicitra) 30 ml BID ORAL 08/11/18 18:00 09/10/18 17:59 Trazodone HCl (Desyrel) 50 mg BEDTIME ORAL 08/09/18 21:00 09/08/18 20:59 08/10/18 21:09 Jt Rizvi MD Aug 11, 2018 14:06
[2018-08-11 16:00] VITALS: BP 129/61
--- NOTE | 2018-08-11 18:12 | Pulmonology Progress Note ---
Assessment/Plan Assessment/Plan ASSESSMENT: The patient is a 53-year-old female, history of solitary kidney, CKD stage 4, hypertension, hyperlipidemia, prior admission with pleural effusions likely congestive heart failure, and anemia presenting with shortness of breath likely decompensated heart failure. The patient does not clinically appear infected, is afebrile, has only a mild leukocytosis. She is being treated for possible pneumonia with Rocephin under the care of the Infectious Disease service. PROBLEM LIST: 1. Mild hypoxemia. 2. Questionable history of asthma. 3. Likely decompensated heart failure. 4. Prior CT scan 07/19/2018 with evidence of mediastinal, hilar, and axillary lymphadenopathy. 5. History of transudative pleural effusion. 6. Pulmonary hypertension. 7. CKD. 8. Edema. 9. Prior CVA. TREATMENT PLAN: 1. Optimize pulmonary hygiene/mobilize as tolerated. 2. Titrate FiO2 to keep saturations greater than 90%. 3. P.r.n. bronchodilators. 4. Monitor volumes and renal function, consider diuresis. 5. F/U renal and cards recs 6. F/U CT chest 7. The patient may need further workup as an outpatient including endobronchial ultrasound versus mediastinoscopy. 8. Observe off Antibiotics per ID. 9. Aspiration precautions. 10. [place] recs, VSS 11. DVT prophylaxis heparin subcutaneous. 12. The patient should have outpatient pulmonary workup including full PFTs. Subjective Allergies: Coded Allergies: LISINOPRIL (Verified Allergy, Unknown, 07/16/18) LOSARTAN (Verified Allergy, Unknown, 07/16/18) Subjective AFVSS on RA + SOB no cough no CP no F/C Objective Last 24 Hour Vital Signs Date Time Temp Pulse Resp B/P (MAP) Pulse Ox O2 Delivery O2 Flow Rate FiO2 08/11/18 16:00 58 08/11/18 16:00 98.0 68 18 129/61 (83) 95 08/11/18 14:00 118/55 08/11/18 14:00 118/55 08/11/18 12:00 97.8 60 18 142/75 (97) 96 08/11/18 12:00 62 08/11/18 09:41 63 156/70 08/11/18 09:41 63 156/70 08/11/18 09:00 Room Air Room Air 08/11/18 08:00 64 08/11/18 08:00 98.4 63 19 150/73 (98) 95 08/11/18 05:32 164/77 08/11/18 05:31 164/77 08/11/18 04:00 98.0 66 19 164/77 (106) 93 08/11/18 04:00 67 08/11/18 00:00 98.9 71 19 176/75 (108) 94 08/11/18 00:00 73 08/11/18 00:00 176/75 08/10/18 22:07 150/68 08/10/18 21:26 73 22 Room Air 08/10/18 21:09 165/71 08/10/18 21:08 70 165/71 08/10/18 21:00 Room Air Room Air 08/10/18 20:00 99.2 70 19 165/71 (102) 96 08/10/18 20:00 68 Intake and Output 08/10/18 08/11/18 18:59 06:59 Intake Total 55 ml 100 ml Balance 55 ml 100 ml Intake Oral 100 ml IV Total 55 ml # Voids 2 3 General Appearance: WD/WN, no acute distress HEENT: normocephalic, atraumatic, anicteric, mucous membranes moist Respiratory/Chest: chest wall non-tender, lungs clear, normal breath sounds, crackles/rales - BiB Cardiovascular: normal peripheral pulses, normal rate, regular rhythm Abdomen: normal bowel sounds, soft, non tender, no organomegaly, non distended , no mass Extremities: no cyanosis, no clubbing, other - 1+ [place] Microbiology Date/Time Source Procedure Growth Status 08/09/18 09:05 Blood Blood Culture - Preliminary NO GROWTH AFTER 24 HOURS Resulted 08/09/18 08:55 Blood Blood Culture - Preliminary NO GROWTH AFTER 24 HOURS Resulted Laboratory Tests 08/11/18 00:25: Urine Color Pale yellow, Urine Appearance Slightly cloudy, Urine pH 5, Urine Specific [place] 1.015, Urine Protein 4+H, Urine Glucose (UA) 2+H, Urine Ketones Negative, Urine Blood 1+H, Urine Nitrite Negative, Urine Bilirubin Negative, Urine Urobilinogen Normal, Urine Leukocyte Esterase 1+H, Urine RBC 0-2 , Urine WBC 2-4, Urine Squamous Epithelial Cells Few, Urine Bacteria Few, Urine Eosinophils None seen, Urine Random Creatinine [Pending], Urine Random Microalbumin [Pending], Urine Random Total Protein 1865H, Urine Random Sodium 34 , Urine Creatinine 156.4H, Urine Microalbumin/Creatinine Ratio [Pending] 08/11/18 07:25: White Blood Count 4.4L, Red Blood Count 2.66L, Hemoglobin 8.6L, Hematocrit 26.4L , Mean Corpuscular Volume 99, Mean Corpuscular Hemoglobin 32.5H, Mean Corpuscular Hemoglobin Concent 32.7, Red Cell Distribution Width 13.7, Platelet Count 185, Mean Platelet Volume 6.3L, Neutrophils (%) (Auto) 58.0, Lymphocytes ( %) (Auto) 27.2, Monocytes (%) (Auto) 9.0, Eosinophils (%) (Auto) 5.4H, Basophils (%) (Auto) 0.4, Sodium Level 142, Potassium Level 3.9, Chloride Level 112H, Carbon Dioxide Level 20L, Anion Gap 11, Blood Urea Nitrogen 43H, Creatinine 2.8H, Estimat Glomerular Filtration Rate 21.2, Glucose Level 215H, Calcium Level 7.7L, Phosphorus Level 5.0H, Iron Level 46L, Total Iron Binding Capacity 139L, Percent Iron Saturation 33, Unsaturated Iron Binding 93L, Total Bilirubin 0.2, Aspartate Amino Transf (AST/SGOT) 11L, Alanine Aminotransferase ( ALT/SGPT) 26, Alkaline Phosphatase 79, Total Protein 5.4L, Albumin 2.2L, Globulin 3.2, Albumin/Globulin Ratio 0.7L 08/11/18 12:08: Calcium (Send out) [Pending], Vitamin D 25-Hydroxy [Pending], 25-Hydroxy Vitamin D2 [Pending], 25-Hydroxy Vitamin D3 [Pending], Parathyroid Hormone ( Intact) [Pending] Current Medications Medications (Trade) Dose Ordered Sig/Zara Route PRN Reason Start Time Stop Time Status Last Admin Dose Admin Acetaminophen (Tylenol) 650 mg Q4H PRN ORAL Mild Pain/Temp > 100.5 08/09/18 12:15 09/08/18 12:14 Albuterol/ Ipratropium (Albuterol/ Ipratropium) 3 ml Q4H PRN HHN Shortness of Breath 08/09/18 12:15 08/14/18 12:14 Amlodipine Besylate (Norvasc) 10 mg DAILY ORAL 08/10/18 09:00 09/09/18 08:59 08/11/18 09:41 Atorvastatin Calcium (Lipitor) 10 mg BEDTIME ORAL 08/09/18 21:00 09/08/18 20:59 08/10/18 21:09 Carvedilol (Coreg) 37.5 mg EVERY 12 HOURS ORAL 08/09/18 21:00 09/08/18 20:59 08/11/18 09:41 Clonidine HCl (Catapres Tab) 0.1 mg EVERY 8 HOURS ORAL 08/10/18 22:00 09/09/18 21:59 08/11/18 05:31 Clopidogrel Bisulfate (Plavix) 75 mg DAILY ORAL 08/10/18 09:00 09/09/18 08:59 08/11/18 09:40 Epoetin Yordan (Procrit (for non ESRD use)) 5,000 units TUE-TUE-TUE SUBQ 08/11/18 21:00 09/10/18 20:59 Gabapentin (Neurontin) 300 mg Q12HR ORAL 08/09/18 21:00 09/08/18 20:59 08/11/18 09:40 Heparin Sodium (Porcine) (Heparin 5000 units/ml) 5,000 units EVERY 12 HOURS SUBQ 08/09/18 21:00 09/08/18 20:59 08/11/18 09:43 Hydralazine HCl (Apresoline) 100 mg Q8HR ORAL 08/10/18 14:00 09/09/18 13:59 08/11/18 05:32 Minoxidil (Loniten) 2.5 mg Q4H PRN ORAL sbp> 165 08/09/18 12:15 09/08/18 12:14 08/11/18 00:00 Mirtazapine (Remeron) 7.5 mg BEDTIME ORAL 08/09/18 21:00 09/08/18 20:59 08/10/18 21:09 Nateglinide (Starlix) 120 mg TIAC ORAL 08/09/18 16:30 09/08/18 16:29 08/11/18 16:55 Ondansetron HCl (Zofran) 4 mg Q6H PRN IVP Nausea & Vomiting 08/09/18 12:15 09/08/18 12:14 Oxycodone/ Acetaminophen (Percocet 10/325) 1 tab Q4H PRN ORAL moderate-severe (4-10) pain 08/09/18 12:15 08/16/18 12:14 08/11/18 14:10 Pantoprazole (Protonix) 40 mg DAILY ORAL 08/10/18 09:00 09/09/18 08:59 08/11/18 09:40 Polyethylene Glycol (Miralax) 17 gm DAILYPRN PRN ORAL Constipation 08/09/18 12:15 09/08/18 12:14 Sodium Citrate (Bicitra) 30 ml BID ORAL 08/11/18 18:00 09/10/18 17:59 Trazodone HCl (Desyrel) 50 mg BEDTIME ORAL 08/09/18 21:00 09/08/18 20:59 08/10/18 21:09 Kevin Gutiérrez MD Aug 11, 2018 18:12
[2018-08-11] MEDS: Sodium Citrate 30ml ORAL SCH (18:14)
--- NOTE | 2018-08-11 19:30 | NUR ---
NURSE NOTES: Report received from JENNIFER Navarro. Pt is lying comfortably in semi-fowlers. A+Ox4, denies pain and SOB. Pt shows no signs of distress. IV site is patent, intact, and saline locked. Respirations are even and unlabored on room air. Bed is at lowest position, brakes engaged, siderails x2, bed alarm on, and call light within reach. Pt is in stable condition at this time, admission orders in; will continue to monitor.
--- NOTE | 2018-08-11 19:35 | NUR ---
HAND-OFF: Report given to Joy Penn RN.
[2018-08-11 20:00] VITALS: BP 158/72
--- NOTE | 2018-08-11 21:03 | Cardiology Progress Note ---
Assessment/Plan Assessment/Plan 1. Accelerated hypertension, well controlled, continue hydralazine, carvedilol , amlodipine and clonidine. 2. Dyspnea most likely secondary to bilateral pleural effusion, status post right thoracentesis yielding about 500 mL of fluid. 2D echocardiography July 17, 2018 showed normal LV systolic and diastolic function with LVEF of approximately 55%. Continue IV antibiotics, pulmonary toilet, and diuretic therapy. 3. Moderate pulmonary hypertension. 4. Stage 5 CKD. 2D echocardiography has shown small pericardial effusion. 5. Anemia, possible chronic kidney disease. 6. History of CVA with left hemiparesis, consider aspirin and statins. Subjective Subjective Sinus bradycardia at rate of 58. Objective Last 24 Hour Vital Signs Date Time Temp Pulse Resp B/P (MAP) Pulse Ox O2 Delivery O2 Flow Rate FiO2 08/11/18 16:00 58 08/11/18 16:00 98.0 68 18 129/61 (83) 95 08/11/18 14:00 118/55 08/11/18 14:00 118/55 08/11/18 12:00 97.8 60 18 142/75 (97) 96 08/11/18 12:00 62 08/11/18 09:41 63 156/70 08/11/18 09:41 63 156/70 08/11/18 09:00 Room Air Room Air 08/11/18 08:00 64 08/11/18 08:00 98.4 63 19 150/73 (98) 95 08/11/18 05:32 164/77 08/11/18 05:31 164/77 08/11/18 04:00 98.0 66 19 164/77 (106) 93 08/11/18 04:00 67 08/11/18 00:00 98.9 71 19 176/75 (108) 94 08/11/18 00:00 73 08/11/18 00:00 176/75 08/10/18 22:07 150/68 08/10/18 21:26 73 22 Room Air 08/10/18 21:09 165/71 08/10/18 21:08 70 165/71 Intake and Output 08/10/18 08/11/18 18:59 06:59 Intake Total 55 ml 100 ml Balance 55 ml 100 ml Intake Oral 100 ml IV Total 55 ml # Voids 2 3 2D Echo: LVEF 65%, Mild MR, Normal LVD, RVSP 56mmHg Laboratory Tests Test 08/11/18 00:25 08/11/18 07:25 08/11/18 12:08 Urine Color Pale yellow Urine Appearance Slightly cloudy Urine pH 5 (4.5-8.0) Urine Specific [place] 1.015 (1.005-1.035) Urine Protein 4+ (NEGATIVE) H Urine Glucose (UA) 2+ (NEGATIVE) H Urine Ketones Negative (NEGATIVE) Urine Blood 1+ (NEGATIVE) H Urine Nitrite Negative (NEGATIVE) Urine Bilirubin Negative (NEGATIVE) Urine Urobilinogen Normal MG/DL (0.0-1.0) Urine Leukocyte Esterase 1+ (NEGATIVE) H Urine RBC 0-2 /HPF (0 - 2) Urine WBC 2-4 /HPF (0 - 2) Urine Squamous Epithelial Cells Few /LPF (NONE/OCC) Urine Bacteria Few /HPF (NONE) Urine Eosinophils None seen (NONE SEEN) Urine Random Creatinine Pending Urine Random Microalbumin Pending Urine Random Total Protein 1865 MG/DL (< 11.9) H Urine Random Sodium 34 mmol/L (20-110) Urine Creatinine 156.4 MG/DL (30.0-125.0) H Urine Microalbumin/Creatinine Ratio Pending White Blood Count 4.4 K/UL (4.8-10.8) L Red Blood Count 2.66 M/UL (4.20-5.40) L Hemoglobin 8.6 G/DL (12.0-16.0) L Hematocrit 26.4 % (37.0-47.0) L Mean Corpuscular Volume 99 FL (80-99) Mean Corpuscular Hemoglobin 32.5 PG (27.0-31.0) H Mean Corpuscular Hemoglobin Concent 32.7 G/DL (32.0-36.0) Red Cell Distribution Width 13.7 % (11.6-14.8) Platelet Count 185 K/UL (150-450) Mean Platelet Volume 6.3 FL (6.5-10.1) L Neutrophils (%) (Auto) 58.0 % (45.0-75.0) Lymphocytes (%) (Auto) 27.2 % (20.0-45.0) Monocytes (%) (Auto) 9.0 % (1.0-10.0) Eosinophils (%) (Auto) 5.4 % (0.0-3.0) H Basophils (%) (Auto) 0.4 % (0.0-2.0) Sodium Level 142 MMOL/L (136-145) Potassium Level 3.9 MMOL/L (3.5-5.1) Chloride Level 112 MMOL/L (98-107) H Carbon Dioxide Level 20 MMOL/L (21-32) L Anion Gap 11 mmol/L (5-15) Blood Urea Nitrogen 43 mg/dL (7-18) H Creatinine 2.8 MG/DL (0.55-1.30) H Estimat Glomerular Filtration Rate 21.2 mL/min (>60) Glucose Level 215 MG/DL (74-106) H Calcium Level 7.7 MG/DL (8.5-10.1) L Phosphorus Level 5.0 MG/DL (2.5-4.9) H Iron Level 46 ug/dL (50-175) L Total Iron Binding Capacity 139 ug/dL (250-450) L Percent Iron Saturation 33 % (15-50) Unsaturated Iron Binding 93 ug/dL (112-346) L Total Bilirubin 0.2 MG/DL (0.2-1.0) Aspartate Amino Transf (AST/SGOT) 11 U/L (15-37) L Alanine Aminotransferase (ALT/SGPT) 26 U/L (12-78) Alkaline Phosphatase 79 U/L (46-116) Total Protein 5.4 G/DL (6.4-8.2) L Albumin 2.2 G/DL (3.4-5.0) L Globulin 3.2 g/dL Albumin/Globulin Ratio 0.7 (1.0-2.7) L Calcium (Send out) Pending Vitamin D 25-Hydroxy Pending 25-Hydroxy Vitamin D2 Pending 25-Hydroxy Vitamin D3 Pending Parathyroid Hormone (Intact) Pending Microbiology Date/Time Source Procedure Growth Status 08/09/18 09:05 Blood Blood Culture - Preliminary NO GROWTH AFTER 24 HOURS Resulted 08/09/18 08:55 Blood Blood Culture - Preliminary NO GROWTH AFTER 24 HOURS Resulted Objective HEENT: Atraumatic and normocephalic. Anicteric. Pupils are equal, round, and reactive to light and accommodation. Extraocular muscles intact. Poor dentition. NECK: JVP less than 5 cm. No carotid bruit. Carotid upstrokes 2+ bilaterally. LUNGS: Bilateral lower lung crackles. Diminished breath sounds on both lungs and the bases. CARDIOVASCULAR: Normal S1, S2. Regular rate and rhythm. No murmurs, gallops, or rubs. ABDOMEN: Soft, nontender, and nondistended. No hepatosplenomegaly. Positive bowel sounds. EXTREMITIES: No evidence of edema, clubbing, or cyanosis. Kwesi Zee MD Aug 11, 2018 21:03
[2018-08-11] MEDS: TraZODone 50mg tab ORAL SCH (21:13)
[2018-08-11] MEDS: Epogen (for non ESRD use) SUBQ SCH (21:15)
--- NOTE | 2018-08-11 22:32 | General Progress Note ---
Assessment/Plan Problem List: (1) Anemia ICD Codes: D64.9 - Anemia, unspecified SNOMED: 624674586 (2) Diabetes mellitus ICD Codes: E11.9 - Type 2 diabetes mellitus without complications SNOMED: 85380367 (3) Cardiomegaly ICD Codes: I51.7 - Cardiomegaly SNOMED: 0968591 (4) Asthma ICD Codes: J45.909 - Unspecified asthma, uncomplicated SNOMED: 109195156 (5) Solitary kidney ICD Codes: Q60.0 - Renal agenesis, unilateral SNOMED: 358831636 (6) Moderate pulmonary arterial systolic hypertension ICD Codes: I27.21 - Secondary pulmonary arterial hypertension SNOMED: 90136051 (7) Hypertension ICD Codes: I10 - Essential (primary) hypertension SNOMED: 67786875 Status: progressing Assessment/Plan atypical cp chronic pain htn dm no wheezing not hypoxic Subjective ROS Limited/Unobtainable: Yes Allergies: Coded Allergies: LISINOPRIL (Verified Allergy, Unknown, 07/16/18) LOSARTAN (Verified Allergy, Unknown, 07/16/18) Objective Last 24 Hour Vital Signs Date Time Temp Pulse Resp B/P (MAP) Pulse Ox O2 Delivery O2 Flow Rate FiO2 08/11/18 21:14 158/72 08/11/18 21:14 158/72 08/11/18 21:14 66 158/72 08/11/18 16:00 58 08/11/18 16:00 98.0 68 18 129/61 (83) 95 08/11/18 14:00 118/55 08/11/18 14:00 118/55 08/11/18 12:00 97.8 60 18 142/75 (97) 96 08/11/18 12:00 62 08/11/18 09:41 63 156/70 08/11/18 09:41 63 156/70 08/11/18 09:00 Room Air Room Air 08/11/18 08:00 64 08/11/18 08:00 98.4 63 19 150/73 (98) 95 08/11/18 05:32 164/77 08/11/18 05:31 164/77 08/11/18 04:00 98.0 66 19 164/77 (106) 93 08/11/18 04:00 67 08/11/18 00:00 98.9 71 19 176/75 (108) 94 08/11/18 00:00 73 08/11/18 00:00 176/75 Intake and Output 08/10/18 08/11/18 18:59 06:59 Intake Total 55 ml 100 ml Balance 55 ml 100 ml Intake Oral 100 ml IV Total 55 ml # Voids 2 3 Laboratory Tests 08/11/18 00:25: Urine Color Pale yellow, Urine Appearance Slightly cloudy, Urine pH 5, Urine Specific [place] 1.015, Urine Protein 4+H, Urine Glucose (UA) 2+H, Urine Ketones Negative, Urine Blood 1+H, Urine Nitrite Negative, Urine Bilirubin Negative, Urine Urobilinogen Normal, Urine Leukocyte Esterase 1+H, Urine RBC 0-2 , Urine WBC 2-4, Urine Squamous Epithelial Cells Few, Urine Bacteria Few, Urine Eosinophils None seen, Urine Random Creatinine [Pending], Urine Random Microalbumin [Pending], Urine Random Total Protein 1865H, Urine Random Sodium 34 , Urine Creatinine 156.4H, Urine Microalbumin/Creatinine Ratio [Pending] 08/11/18 07:25: White Blood Count 4.4L, Red Blood Count 2.66L, Hemoglobin 8.6L, Hematocrit 26.4L , Mean Corpuscular Volume 99, Mean Corpuscular Hemoglobin 32.5H, Mean Corpuscular Hemoglobin Concent 32.7, Red Cell Distribution Width 13.7, Platelet Count 185, Mean Platelet Volume 6.3L, Neutrophils (%) (Auto) 58.0, Lymphocytes ( %) (Auto) 27.2, Monocytes (%) (Auto) 9.0, Eosinophils (%) (Auto) 5.4H, Basophils (%) (Auto) 0.4, Sodium Level 142, Potassium Level 3.9, Chloride Level 112H, Carbon Dioxide Level 20L, Anion Gap 11, Blood Urea Nitrogen 43H, Creatinine 2.8H, Estimat Glomerular Filtration Rate 21.2, Glucose Level 215H, Calcium Level 7.7L, Phosphorus Level 5.0H, Iron Level 46L, Total Iron Binding Capacity 139L, Percent Iron Saturation 33, Unsaturated Iron Binding 93L, Total Bilirubin 0.2, Aspartate Amino Transf (AST/SGOT) 11L, Alanine Aminotransferase ( ALT/SGPT) 26, Alkaline Phosphatase 79, Total Protein 5.4L, Albumin 2.2L, Globulin 3.2, Albumin/Globulin Ratio 0.7L 08/11/18 12:08: Calcium (Send out) [Pending], Vitamin D 25-Hydroxy [Pending], 25-Hydroxy Vitamin D2 [Pending], 25-Hydroxy Vitamin D3 [Pending], Parathyroid Hormone ( Intact) [Pending] Height (Feet): 5 Height (Inches): 2.00 Weight (Pounds): 139 Cardiovascular: normal rate Respiratory/Chest: lungs clear Abdomen: soft Eligio Neumann MD Aug 11, 2018 22:32
[2018-08-12] VITALS: BP 134/64
--- NOTE | 2018-08-12 01:30 | General Progress Note ---
Assessment/Plan Assessment/Plan ASSESSMENT/RECS: #. Anemia of chronic disease -- patient with ongoing kidney damage, cr is elevated approx 2-2.5 baseline --> anemia panel has been reviewed and tsh, ferritin, tibc, esr, b12, folate, fibrinogen, iron % reviewed --> appreciate nephrology consult --> continue on epogen --> transfuse if hgb is <7 --> hemolysis w/u has been reviewed --> trend hgb 8.9-->8.4-->8.5-->10.7 --> ON EPO SQ AND IRON IV # Leukopenia wbc in the 4-6 range --> hepatitis panel negative, hiv neg --> us abd shows borderline spleen enlargement # Acute versus chronic renal failure. as per renal etiology of acute renal failure is cardiorenal syndrome, prerenal azotemia versus unstable --> bp to improve on current meds --> nephro recs appreciated #. Coagulopathy with elevated inr --> recheck in future prn, now improved #. Congestive heart failure, but at this point the patient seems to be euvolemic. --> as per cardiology #. 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 #. Uncontrolled hypertension. --> now better #. Pleural eff s/p thora Greatly appreciate consultation Subjective Constitutional: Denies: no symptoms, chills, diaphoresis, fever, malaise, weakness, other HEENT: Denies: no symptoms, eye pain, blurred vision, tearing, double vision, ear pain, ear discharge, nose pain, nose congestion, throat pain, throat swelling, mouth pain, mouth swelling, other Cardiovascular: Denies: no symptoms, chest pain, edema, irregular heart rate, lightheadedness, palpitations, syncope, other Respiratory: Denies: no symptoms, cough, orthopnea, shortness of breath, SOB with excertion, SOB at rest, sputum, stridor, wheezing, other Gastrointestinal/Abdominal: Denies: no symptoms, abdomen distended, abdominal pain, black stools, tarry stools, blood in stool, constipated, diarrhea, difficulty swallowing, nausea, poor appetite, poor fluid intake, rectal bleeding , vomiting, other Genitourinary: Denies: no symptoms, burning, discharge, frequency, flank pain, hematuria, incontinence, pain, urgency, other Neurologic/Psychiatric: Denies: no symptoms, anxiety, depressed, emotional problems, headache, numbness, paresthesia, pre-existing deficit, seizure, tingling, tremors, weakness, other Endocrine: Denies: no symptoms, excessive sweating, flushing, intolerance to cold, intolerance to heat, increased hunger, increased thirst, increased urine, unexplained weight gain, unexplained weight loss, other Hematologic/Lymphatic: Denies: no symptoms, anemia, easy bleeding, easy bruising, other Allergies: Coded Allergies: LISINOPRIL (Verified Allergy, Unknown, 07/16/18) LOSARTAN (Verified Allergy, Unknown, 07/16/18) Subjective 08/11/18: Pt is awake and resting in bed, denies acute distress, no events reported, cbc reviewed. Objective Last 24 Hour Vital Signs Date Time Temp Pulse Resp B/P (MAP) Pulse Ox O2 Delivery O2 Flow Rate FiO2 08/12/18 01:04 65 20 Room Air 21 08/12/18 00:00 63 08/12/18 00:00 98.1 65 18 134/64 (87) 95 08/11/18 21:14 158/72 08/11/18 21:14 158/72 08/11/18 21:14 66 158/72 08/11/18 21:00 Room Air Room Air 08/11/18 20:00 97.7 66 18 158/72 (100) 97 08/11/18 20:00 64 08/11/18 16:00 58 08/11/18 16:00 98.0 68 18 129/61 (83) 95 08/11/18 14:00 118/55 08/11/18 14:00 118/55 08/11/18 12:00 97.8 60 18 142/75 (97) 96 08/11/18 12:00 62 08/11/18 09:41 63 156/70 08/11/18 09:41 63 156/70 08/11/18 09:00 Room Air Room Air 08/11/18 08:00 64 08/11/18 08:00 98.4 63 19 150/73 (98) 95 08/11/18 05:32 164/77 08/11/18 05:31 164/77 08/11/18 04:00 98.0 66 19 164/77 (106) 93 08/11/18 04:00 67 Intake and Output 08/11/18 08/12/18 18:59 06:59 Intake Total 720 ml Balance 720 ml Intake Oral 720 ml # Voids 2 Laboratory Tests 08/11/18 07:25: White Blood Count 4.4L, Red Blood Count 2.66L, Hemoglobin 8.6L, Hematocrit 26.4L , Mean Corpuscular Volume 99, Mean Corpuscular Hemoglobin 32.5H, Mean Corpuscular Hemoglobin Concent 32.7, Red Cell Distribution Width 13.7, Platelet Count 185, Mean Platelet Volume 6.3L, Neutrophils (%) (Auto) 58.0, Lymphocytes ( %) (Auto) 27.2, Monocytes (%) (Auto) 9.0, Eosinophils (%) (Auto) 5.4H, Basophils (%) (Auto) 0.4, Sodium Level 142, Potassium Level 3.9, Chloride Level 112H, Carbon Dioxide Level 20L, Anion Gap 11, Blood Urea Nitrogen 43H, Creatinine 2.8H, Estimat Glomerular Filtration Rate 21.2, Glucose Level 215H, Calcium Level 7.7L, Phosphorus Level 5.0H, Iron Level 46L, Total Iron Binding Capacity 139L, Percent Iron Saturation 33, Unsaturated Iron Binding 93L, Total Bilirubin 0.2, Aspartate Amino Transf (AST/SGOT) 11L, Alanine Aminotransferase ( ALT/SGPT) 26, Alkaline Phosphatase 79, Total Protein 5.4L, Albumin 2.2L, Globulin 3.2, Albumin/Globulin Ratio 0.7L 08/11/18 12:08: Calcium (Send out) [Pending], Vitamin D 25-Hydroxy [Pending], 25-Hydroxy Vitamin D2 [Pending], 25-Hydroxy Vitamin D3 [Pending], Parathyroid Hormone ( Intact) [Pending] Height (Feet): 5 Height (Inches): 2.00 Weight (Pounds): 139 Objective VITAL SIGNS: have been reviewed and are otherwise stable HEAD AND NECK: No JVP. No LAD. No thyromegaly. Extraocular movements intact. Pupils are reactive to light and accommodation. LUNGS: Decreased breathing sounds on both sides. CARDIAC: Regular rate and rhythm. S1-S2. No murmur. No rub. ABDOMEN: Soft, nontender, and nondistended. EXTREMITIES: 1+ edema. No clubbing. No cyanosis. Kleynberg,Amandeep L. MD Aug 12, 2018 01:30
[2018-08-12 04:00] VITALS: BP 151/58
[2018-08-12] MEDS: HydrALAZINE 50mg tab ORAL SCH ×3 (05:34→22:28)
--- NOTE | 2018-08-12 07:28 | NUR ---
HAND-OFF: Report given to JENNIFER Navarro. Pt is in stable condition; plan of care endorsed.
--- NOTE | 2018-08-12 07:45 | NUR ---
NURSE NOTES: Pt received from JENNIFER Hamilton alert and oriented x4 with no s/s of pain, SOB, or n/v. IV site asymptomatic and patent, on saline lock. Bed in lowest position, call light and belongings within reach.
[2018-08-12 07:46] LABS: BASOPHILS % (AUTO) 0.8 % (0.0-2.0); EOSINOPHILS % (AUTO) 4.5 % (0.0-3.0); HEMATOCRIT 27.2 % (37.0-47.0); HEMOGLOBIN 8.6 G/DL (12.0-16.0); LYMPHOCYTES % (AUTO) 23.4 % (20.0-45.0); MEAN CORPUSCULAR VOLUME 101 FL (80-99); MONOCYTES % (AUTO) 8.1 % (1.0-10.0); NEUTROPHILS % (AUTO) 63.2 % (45.0-75.0); PLATELET COUNT 182 K/UL (150-450); RED CELL DISTRIBUTION WIDTH 13.5 % (11.6-14.8); WHITE BLOOD COUNT 4.9 K/UL (4.8-10.8)
[2018-08-12 08:00] VITALS: BP 161/66
[2018-08-12 08:19] LABS: ALANINE AMINOTRANSFERASE 29 U/L (12-78); ALBUMIN 2.1 G/DL (3.4-5.0); ALBUMIN/GLOBULIN RATIO 0.6 (1.0-2.7); ALKALINE PHOSPHATASE 73 U/L (46-116); ANION GAP 9 mmol/L (5-15); ASPARTATE AMINO TRANSFERASE 12 U/L (15-37); BILIRUBIN,TOTAL 0.2 MG/DL (0.2-1.0); BLOOD UREA NITROGEN 47 mg/dL (7-18); CARBON DIOXIDE 20 MMOL/L (21-32); CHLORIDE 112 MMOL/L (98-107); CREATININE 3.2 MG/DL (0.55-1.30); POTASSIUM 4.2 MMOL/L (3.5-5.1); SODIUM 141 MMOL/L (136-145)
[2018-08-12] MEDS: Sodium Citrate 30ml ORAL SCH ×2 (09:00→17:27)
[2018-08-12] MEDS: Carvedilol 12.5mg tab ORAL SCH ×2 (09:07→20:57)
[2018-08-12] MEDS: Heparin 5000 units/ml inj SUBQ SCH ×2 (09:14→20:59)
--- NOTE | 2018-08-12 11:26 | Pulmonology Progress Note ---
Assessment/Plan Assessment/Plan ASSESSMENT: The patient is a 53-year-old female, history of solitary kidney, CKD stage 4, hypertension, hyperlipidemia, prior admission with pleural effusions likely congestive heart failure, and anemia presenting with shortness of breath likely decompensated heart failure. The patient does not clinically appear infected, is afebrile, has only a mild leukocytosis. She is being treated for possible pneumonia with Rocephin under the care of the Infectious Disease service. PROBLEM LIST: 1. Mild hypoxemia. 2. Questionable history of asthma. 3. Likely decompensated heart failure. 4. Prior CT scan 07/19/2018 with evidence of mediastinal, hilar, and axillary lymphadenopathy. 5. History of transudative pleural effusion. 6. Pulmonary hypertension. 7. CKD. 8. Edema. 9. Prior CVA. TREATMENT PLAN: 1. Optimize pulmonary hygiene/mobilize as tolerated. 2. Titrate FiO2 to keep saturations greater than 90%. 3. P.r.n. bronchodilators. 4. Monitor volumes and renal function, consider diuresis. 5. F/U renal and cards recs 6. F/U CT chest 7. The patient may need further workup as an outpatient including endobronchial ultrasound versus mediastinoscopy. 8. Observe off Antibiotics per ID. 9. Aspiration precautions. 10. GROUP CIO recs, VSS 11. DVT prophylaxis heparin subcutaneous. 12. The patient should have outpatient pulmonary workup including full PFTs. Subjective Allergies: Coded Allergies: LISINOPRIL (Verified Allergy, Unknown, 07/16/18) LOSARTAN (Verified Allergy, Unknown, 07/16/18) Subjective AFVSS on RA + SOB no cough no CP no F/C Objective Last 24 Hour Vital Signs Date Time Temp Pulse Resp B/P (MAP) Pulse Ox O2 Delivery O2 Flow Rate FiO2 08/12/18 10:24 67 18 Room Air 21 08/12/18 09:07 69 161/66 08/12/18 09:07 69 161/66 08/12/18 09:00 Room Air Room Air 08/12/18 08:00 97.4 69 20 161/66 (97) 96 08/12/18 08:00 69 08/12/18 05:34 151/58 08/12/18 05:34 151/58 08/12/18 04:00 64 08/12/18 04:00 97.2 64 18 151/58 (89) 94 08/12/18 01:04 65 20 Room Air 21 08/12/18 00:00 63 08/12/18 00:00 98.1 65 18 134/64 (87) 95 08/11/18 21:14 158/72 08/11/18 21:14 158/72 08/11/18 21:14 66 158/72 08/11/18 21:00 Room Air Room Air 08/11/18 20:00 97.7 66 18 158/72 (100) 97 08/11/18 20:00 64 08/11/18 16:00 58 08/11/18 16:00 98.0 68 18 129/61 (83) 95 08/11/18 14:00 118/55 08/11/18 14:00 118/55 08/11/18 12:00 97.8 60 18 142/75 (97) 96 08/11/18 12:00 62 Intake and Output 08/11/18 08/12/18 18:59 06:59 Intake Total 720 ml Balance 720 ml Intake Oral 720 ml # Voids 2 2 General Appearance: WD/WN, no acute distress HEENT: normocephalic, atraumatic, anicteric, mucous membranes moist Respiratory/Chest: chest wall non-tender, lungs clear - but distant, normal breath sounds, no respiratory distress Cardiovascular: normal peripheral pulses, normal rate, regular rhythm Abdomen: normal bowel sounds, soft, non tender, no organomegaly, non distended , no mass Extremities: no cyanosis, no clubbing, no edema Laboratory Tests 08/11/18 12:08: Calcium (Send out) [Pending], Vitamin D 25-Hydroxy [Pending], 25-Hydroxy Vitamin D2 [Pending], 25-Hydroxy Vitamin D3 [Pending], Parathyroid Hormone ( Intact) [Pending] 08/12/18 05:43: White Blood Count 4.9, Red Blood Count 2.70L, Hemoglobin 8.6L, Hematocrit 27.2L , Mean Corpuscular Volume 101H, Mean Corpuscular Hemoglobin 32.0H, Mean Corpuscular Hemoglobin Concent 31.8L, Red Cell Distribution Width 13.5, Platelet Count 182, Mean Platelet Volume 6.3L, Neutrophils (%) (Auto) 63.2, Lymphocytes (%) (Auto) 23.4, Monocytes (%) (Auto) 8.1, Eosinophils (%) (Auto) 4.5H, Basophils (%) (Auto) 0.8, Sodium Level 141, Potassium Level 4.2, Chloride Level 112H, Carbon Dioxide Level 20L, Anion Gap 9, Blood Urea Nitrogen 47H, Creatinine 3.2H, Estimat Glomerular Filtration Rate 18.3, Glucose Level 206H, Calcium Level 8.0L, Total Bilirubin 0.2, Aspartate Amino Transf (AST/SGOT) 12L, Alanine Aminotransferase (ALT/SGPT) 29, Alkaline Phosphatase 73, Total Protein 5.5L, Albumin 2.1L, Globulin 3.4, Albumin/Globulin Ratio 0.6L Current Medications Medications (Trade) Dose Ordered Sig/Zara Route PRN Reason Start Time Stop Time Status Last Admin Dose Admin Acetaminophen (Tylenol) 650 mg Q4H PRN ORAL Mild Pain/Temp > 100.5 08/09/18 12:15 09/08/18 12:14 Albuterol/ Ipratropium (Albuterol/ Ipratropium) 3 ml Q4H PRN HHN Shortness of Breath 08/09/18 12:15 08/14/18 12:14 Amlodipine Besylate (Norvasc) 10 mg DAILY ORAL 08/10/18 09:00 09/09/18 08:59 08/12/18 09:07 Atorvastatin Calcium (Lipitor) 10 mg BEDTIME ORAL 08/09/18 21:00 09/08/18 20:59 08/11/18 21:12 Carvedilol (Coreg) 37.5 mg EVERY 12 HOURS ORAL 08/09/18 21:00 09/08/18 20:59 08/12/18 09:07 Clonidine HCl (Catapres Tab) 0.1 mg EVERY 8 HOURS ORAL 08/10/18 22:00 09/09/18 21:59 08/12/18 05:34 Clopidogrel Bisulfate (Plavix) 75 mg DAILY ORAL 08/10/18 09:00 09/09/18 08:59 08/12/18 09:08 Epoetin Yordan (Procrit (for non ESRD use)) 5,000 units TUE-WED-TUE SUBQ 08/11/18 21:00 09/10/18 20:59 08/11/18 21:15 Gabapentin (Neurontin) 300 mg Q12HR ORAL 08/09/18 21:00 09/08/18 20:59 08/12/18 09:08 Heparin Sodium (Porcine) (Heparin 5000 units/ml) 5,000 units EVERY 12 HOURS SUBQ 08/09/18 21:00 09/08/18 20:59 08/12/18 09:14 Hydralazine HCl (Apresoline) 100 mg Q8HR ORAL 08/10/18 14:00 09/09/18 13:59 08/12/18 05:34 Minoxidil (Loniten) 2.5 mg Q4H PRN ORAL sbp> 165 08/09/18 12:15 09/08/18 12:14 08/11/18 00:00 Mirtazapine (Remeron) 7.5 mg BEDTIME ORAL 08/09/18 21:00 09/08/18 20:59 08/11/18 21:14 Nateglinide (Starlix) 120 mg TIAC ORAL 08/09/18 16:30 09/08/18 16:29 08/12/18 05:34 Ondansetron HCl (Zofran) 4 mg Q6H PRN IVP Nausea & Vomiting 08/09/18 12:15 09/08/18 12:14 Oxycodone/ Acetaminophen (Percocet 10/325) 1 tab Q4H PRN ORAL moderate-severe (4-10) pain 08/09/18 12:15 08/16/18 12:14 08/12/18 05:35 Pantoprazole (Protonix) 40 mg DAILY ORAL 08/10/18 09:00 09/09/18 08:59 08/12/18 09:08 Polyethylene Glycol (Miralax) 17 gm DAILYPRN PRN ORAL Constipation 08/09/18 12:15 09/08/18 12:14 Sodium Citrate (Bicitra) 30 ml BID ORAL 08/11/18 18:00 09/10/18 17:59 08/11/18 18:14 Trazodone HCl (Desyrel) 50 mg BEDTIME ORAL 08/09/18 21:00 09/08/18 20:59 08/11/18 21:13 Kevin Gutiérrez MD Aug 12, 2018 11:26
--- NOTE | 2018-08-12 11:29 | Infectious Diseases Prog Note ---
Assessment/Plan Assessment/Plan antibiotics : none A 1. leucocytosis resolved 2. CHF 3. renal failure 4. diabetes mellitus 5. s/p CVA P 1. continue off antibiotics Subjective Constitutional: Denies: fever, chills Respiratory: Reports: shortness of breath; Denies: dry cough Gastrointestinal/Abdominal: Denies: nausea, vomiting, diarrhea Musculoskeletal: Denies: pain Allergies: Coded Allergies: LISINOPRIL (Verified Allergy, Unknown, 07/16/18) LOSARTAN (Verified Allergy, Unknown, 07/16/18) Objective Vital Signs Last 24 Hour Vital Signs Date Time Temp Pulse Resp B/P (MAP) Pulse Ox O2 Delivery O2 Flow Rate FiO2 08/12/18 10:24 67 18 Room Air 21 08/12/18 09:07 69 161/66 08/12/18 09:07 69 161/66 08/12/18 09:00 Room Air Room Air 08/12/18 08:00 97.4 69 20 161/66 (97) 96 08/12/18 08:00 69 08/12/18 05:34 151/58 08/12/18 05:34 151/58 08/12/18 04:00 64 08/12/18 04:00 97.2 64 18 151/58 (89) 94 08/12/18 01:04 65 20 Room Air 21 08/12/18 00:00 63 08/12/18 00:00 98.1 65 18 134/64 (87) 95 08/11/18 21:14 158/72 08/11/18 21:14 158/72 08/11/18 21:14 66 158/72 08/11/18 21:00 Room Air Room Air 08/11/18 20:00 97.7 66 18 158/72 (100) 97 08/11/18 20:00 64 08/11/18 16:00 58 08/11/18 16:00 98.0 68 18 129/61 (83) 95 08/11/18 14:00 118/55 08/11/18 14:00 118/55 08/11/18 12:00 97.8 60 18 142/75 (97) 96 08/11/18 12:00 62 Height (Feet): 5 Height (Inches): 2.00 Weight (Pounds): 139 Respiratory/Chest: lungs clear Cardiovascular: normal rate, regular rhythm, no gallop/murmur Abdomen: soft, non tender Extremities: no edema Laboratory Tests Test 08/11/18 12:08 08/12/18 05:43 Calcium (Send out) Pending Vitamin D 25-Hydroxy Pending 25-Hydroxy Vitamin D2 Pending 25-Hydroxy Vitamin D3 Pending Parathyroid Hormone (Intact) Pending White Blood Count 4.9 K/UL (4.8-10.8) Red Blood Count 2.70 M/UL (4.20-5.40) L Hemoglobin 8.6 G/DL (12.0-16.0) L Hematocrit 27.2 % (37.0-47.0) L Mean Corpuscular Volume 101 FL (80-99) H Mean Corpuscular Hemoglobin 32.0 PG (27.0-31.0) H Mean Corpuscular Hemoglobin Concent 31.8 G/DL (32.0-36.0) L Red Cell Distribution Width 13.5 % (11.6-14.8) Platelet Count 182 K/UL (150-450) Mean Platelet Volume 6.3 FL (6.5-10.1) L Neutrophils (%) (Auto) 63.2 % (45.0-75.0) Lymphocytes (%) (Auto) 23.4 % (20.0-45.0) Monocytes (%) (Auto) 8.1 % (1.0-10.0) Eosinophils (%) (Auto) 4.5 % (0.0-3.0) H Basophils (%) (Auto) 0.8 % (0.0-2.0) Sodium Level 141 MMOL/L (136-145) Potassium Level 4.2 MMOL/L (3.5-5.1) Chloride Level 112 MMOL/L (98-107) H Carbon Dioxide Level 20 MMOL/L (21-32) L Anion Gap 9 mmol/L (5-15) Blood Urea Nitrogen 47 mg/dL (7-18) H Creatinine 3.2 MG/DL (0.55-1.30) H Estimat Glomerular Filtration Rate 18.3 mL/min (>60) Glucose Level 206 MG/DL (74-106) H Calcium Level 8.0 MG/DL (8.5-10.1) L Total Bilirubin 0.2 MG/DL (0.2-1.0) Aspartate Amino Transf (AST/SGOT) 12 U/L (15-37) L Alanine Aminotransferase (ALT/SGPT) 29 U/L (12-78) Alkaline Phosphatase 73 U/L (46-116) Total Protein 5.5 G/DL (6.4-8.2) L Albumin 2.1 G/DL (3.4-5.0) L Globulin 3.4 g/dL Albumin/Globulin Ratio 0.6 (1.0-2.7) L Current Medications Medications (Trade) Dose Ordered Sig/Zara Route PRN Reason Start Time Stop Time Status Last Admin Dose Admin Acetaminophen (Tylenol) 650 mg Q4H PRN ORAL Mild Pain/Temp > 100.5 08/09/18 12:15 09/08/18 12:14 Albuterol/ Ipratropium (Albuterol/ Ipratropium) 3 ml Q4H PRN HHN Shortness of Breath 08/09/18 12:15 08/14/18 12:14 Amlodipine Besylate (Norvasc) 10 mg DAILY ORAL 08/10/18 09:00 09/09/18 08:59 08/12/18 09:07 Atorvastatin Calcium (Lipitor) 10 mg BEDTIME ORAL 08/09/18 21:00 09/08/18 20:59 08/11/18 21:12 Carvedilol (Coreg) 37.5 mg EVERY 12 HOURS ORAL 08/09/18 21:00 09/08/18 20:59 08/12/18 09:07 Clonidine HCl (Catapres Tab) 0.1 mg EVERY 8 HOURS ORAL 08/10/18 22:00 09/09/18 21:59 08/12/18 05:34 Clopidogrel Bisulfate (Plavix) 75 mg DAILY ORAL 08/10/18 09:00 09/09/18 08:59 08/12/18 09:08 Epoetin Yordan (Procrit (for non ESRD use)) 5,000 units TUE-TUE-TUE SUBQ 08/11/18 21:00 09/10/18 20:59 08/11/18 21:15 Gabapentin (Neurontin) 300 mg Q12HR ORAL 08/09/18 21:00 09/08/18 20:59 08/12/18 09:08 Heparin Sodium (Porcine) (Heparin 5000 units/ml) 5,000 units EVERY 12 HOURS SUBQ 08/09/18 21:00 09/08/18 20:59 08/12/18 09:14 Hydralazine HCl (Apresoline) 100 mg Q8HR ORAL 08/10/18 14:00 09/09/18 13:59 08/12/18 05:34 Minoxidil (Loniten) 2.5 mg Q4H PRN ORAL sbp> 165 08/09/18 12:15 09/08/18 12:14 08/11/18 00:00 Mirtazapine (Remeron) 7.5 mg BEDTIME ORAL 08/09/18 21:00 09/08/18 20:59 08/11/18 21:14 Nateglinide (Starlix) 120 mg TIAC ORAL 08/09/18 16:30 09/08/18 16:29 08/12/18 11:26 Ondansetron HCl (Zofran) 4 mg Q6H PRN IVP Nausea & Vomiting 08/09/18 12:15 09/08/18 12:14 Oxycodone/ Acetaminophen (Percocet 10/325) 1 tab Q4H PRN ORAL moderate-severe (4-10) pain 08/09/18 12:15 08/16/18 12:14 08/12/18 11:26 Pantoprazole (Protonix) 40 mg DAILY ORAL 08/10/18 09:00 09/09/18 08:59 08/12/18 09:08 Polyethylene Glycol (Miralax) 17 gm DAILYPRN PRN ORAL Constipation 08/09/18 12:15 09/08/18 12:14 Sodium Citrate (Bicitra) 30 ml BID ORAL 08/11/18 18:00 09/10/18 17:59 08/11/18 18:14 Trazodone HCl (Desyrel) 50 mg BEDTIME ORAL 08/09/18 21:00 09/08/18 20:59 08/11/18 21:13 Pamela Black MD Aug 12, 2018 11:29
[2018-08-12 12:00] VITALS: BP 160/65
--- NOTE | 2018-08-12 14:13 | NUR ---
CASE MANAGEMENT:REVIEW 08/11/18 SI: AC/CHR RENAL FAILURE. PLEURAL EFFUSION 97.8 62 18 142/75 96% ON RA H/H-8.6/26.4 BUN+43 CR+2.8 IS: PROCRIT SQ MWF BICITRA PO BID CLONIDINE PO Q8HRS HYDRALAZINE PO Q8 NORVASC PO QD PLAVIX PO QD PROTONIX PO QD COREG PO Q12 NEURONTIN PO Q12 HEPARIN SQ Q12 REMERON PO QHS PERCOCET PO Q4HRS PRN : TELEMETRY STATUS DCP; FROM HOME 08/12/18 SI: AC/CHR RENAL FAILURE. PLEURAL EFFUSION 97..4 69 20 161/66 96% ON RA H/H-8.6/27.2 BUN+47 CR+3.2 IS: PROCRIT SQ MWF BICITRA PO BID CLONIDINE PO Q8HRS HYDRALAZINE PO Q8 NORVASC PO QD PLAVIX PO QD PROTONIX PO QD COREG PO Q12 NEURONTIN PO Q12 HEPARIN SQ Q12 REMERON PO QHS PERCOCET PO Q4HRS PRN : TELEMETRY STATUS DCP; FROM HOME
--- NOTE | 2018-08-12 15:49 | Diagnostic Imaging Report ---
Indication: Chest pain Technique: Continuous helical transaxial imaging of the chest was obtained from the thoracic inlet to the upper abdomen. No intravenous contrast was administered. Coronal 2-D reformats were also obtained. Total Dose length Product (DLP): 644.[address] Dose Index Volume (CTDIvol): 17.67 mGy Comparison: none Findings: There is a small to moderate right pleural effusion and small left pleural effusion. Coronary calcifications are present. Minimal, nonspecific groundglass opacities are demonstrated within the lungs. Small nodes are demonstrated in the mediastinum nonspecific. Small nodes in the axilla also noted, nonspecific. Visualized part of the upper abdomen shows small vessel arterial calcifications. The left kidney is not seen and may be either ectopic in location below the [id number] or absent. Impression: Bilateral pleural effusions larger on the right. Small nodes in the mediastinum and axilla, nonspecific. Minimal groundglass opacification of the lungs, nonspecific. Atherosclerotic vascular disease. The CT scanner at [facility] is accredited by the [employer] and the scans are performed using dose optimization techniques as appropriate to a performed exam including Automatic Exposure control.
[2018-08-12 16:00] VITALS: BP 160/75
--- NOTE | 2018-08-12 19:40 | NUR ---
NURSE NOTES: Received pt. and report from JENNIFER Brennan. Observe pt. resting in bed; watching tv. Patient is A/O x4, ekg monitor is in placed, IV site is intact, asymptomatic and patent. Bed is in the lowest position and locked, call light within reach. No acute distress noted at this time. Will continue plan of care.
--- NOTE | 2018-08-12 19:48 | NUR ---
HAND-OFF: Report given to Love Cardoso RN.
[2018-08-12 20:00] VITALS: BP 144/64
[2018-08-12] MEDS: TraZODone 50mg tab ORAL SCH (20:56)
--- NOTE | 2018-08-12 21:41 | General Progress Note ---
Assessment/Plan Assessment/Plan ASSESSMENT/RECS: #. Anemia of chronic disease -- patient with ongoing kidney damage, cr is elevated approx 2-2.5 baseline --> anemia panel has been reviewed and tsh, ferritin, tibc, esr, b12, folate, fibrinogen, iron % reviewed --> appreciate nephrology consult --> continue on epogen --> transfuse if hgb is <7 --> hemolysis w/u has been reviewed --> trend hgb 8.9-->8.4-->8.5-->10.7 --> ON EPO SQ AND IRON IV # Leukopenia wbc in the 4-6 range --> hepatitis panel negative, hiv neg --> us abd shows borderline spleen enlargement # Acute versus chronic renal failure. as per renal etiology of acute renal failure is cardiorenal syndrome, prerenal azotemia versus unstable --> bp to improve on current meds --> nephro recs appreciated #. Coagulopathy with elevated inr --> recheck in future prn, now improved #. Congestive heart failure, but at this point the patient seems to be euvolemic. --> as per cardiology #. 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 #. Uncontrolled hypertension. --> now better #. Pleural eff s/p thora Greatly appreciate consultation Subjective Constitutional: Denies: no symptoms, chills, diaphoresis, fever, malaise, weakness, other HEENT: Denies: no symptoms, eye pain, blurred vision, tearing, double vision, ear pain, ear discharge, nose pain, nose congestion, throat pain, throat swelling, mouth pain, mouth swelling, other Cardiovascular: Denies: no symptoms, chest pain, edema, irregular heart rate, lightheadedness, palpitations, syncope, other Respiratory: Denies: no symptoms, cough, orthopnea, shortness of breath, SOB with excertion, SOB at rest, sputum, stridor, wheezing, other Gastrointestinal/Abdominal: Denies: no symptoms, abdomen distended, abdominal pain, black stools, tarry stools, blood in stool, constipated, diarrhea, difficulty swallowing, nausea, poor appetite, poor fluid intake, rectal bleeding , vomiting, other Genitourinary: Denies: no symptoms, burning, discharge, frequency, flank pain, hematuria, incontinence, pain, urgency, other Neurologic/Psychiatric: Denies: no symptoms, anxiety, depressed, emotional problems, headache, numbness, paresthesia, pre-existing deficit, seizure, tingling, tremors, weakness, other Endocrine: Denies: no symptoms, excessive sweating, flushing, intolerance to cold, intolerance to heat, increased hunger, increased thirst, increased urine, unexplained weight gain, unexplained weight loss, other Hematologic/Lymphatic: Denies: no symptoms, anemia, easy bleeding, easy bruising, other Allergies: Coded Allergies: LISINOPRIL (Verified Allergy, Unknown, 07/16/18) LOSARTAN (Verified Allergy, Unknown, 07/16/18) Subjective 08/11/18: Pt is awake and resting in bed, denies acute distress, no events reported, cbc reviewed. 08/12/18: Pt is seen in the room, resting in bed, watching T.V, leukocytosis resolved,on [place] man Objective Last 24 Hour Vital Signs Date Time Temp Pulse Resp B/P (MAP) Pulse Ox O2 Delivery O2 Flow Rate FiO2 08/12/18 20:57 69 144/64 08/12/18 20:40 71 18 Room Air 21 08/12/18 20:00 98.1 69 20 144/64 (90) 97 08/12/18 16:00 66 08/12/18 16:00 98.1 79 19 160/75 (103) 97 08/12/18 15:15 155/70 08/12/18 15:15 155/70 08/12/18 12:00 72 08/12/18 12:00 97.5 73 19 160/65 (96) 98 08/12/18 10:24 67 18 Room Air 21 08/12/18 09:07 69 161/66 08/12/18 09:07 69 161/66 08/12/18 09:00 Room Air Room Air 08/12/18 08:00 97.4 69 20 161/66 (97) 96 08/12/18 08:00 69 08/12/18 05:34 151/58 08/12/18 05:34 151/58 08/12/18 04:00 64 08/12/18 04:00 97.2 64 18 151/58 (89) 94 08/12/18 01:04 65 20 Room Air 21 08/12/18 00:00 63 08/12/18 00:00 98.1 65 18 134/64 (87) 95 Intake and Output 08/11/18 08/12/18 19:00 07:00 Intake Total 720 ml Balance 720 ml Intake Oral 720 ml # Voids 2 2 Laboratory Tests 08/12/18 05:43: White Blood Count 4.9, Red Blood Count 2.70L, Hemoglobin 8.6L, Hematocrit 27.2L , Mean Corpuscular Volume 101H, Mean Corpuscular Hemoglobin 32.0H, Mean Corpuscular Hemoglobin Concent 31.8L, Red Cell Distribution Width 13.5, Platelet Count 182, Mean Platelet Volume 6.3L, Neutrophils (%) (Auto) 63.2, Lymphocytes (%) (Auto) 23.4, Monocytes (%) (Auto) 8.1, Eosinophils (%) (Auto) 4.5H, Basophils (%) (Auto) 0.8, Sodium Level 141, Potassium Level 4.2, Chloride Level 112H, Carbon Dioxide Level 20L, Anion Gap 9, Blood Urea Nitrogen 47H, Creatinine 3.2H, Estimat Glomerular Filtration Rate 18.3, Glucose Level 206H, Calcium Level 8.0L, Total Bilirubin 0.2, Aspartate Amino Transf (AST/SGOT) 12L, Alanine Aminotransferase (ALT/SGPT) 29, Alkaline Phosphatase 73, Total Protein 5.5L, Albumin 2.1L, Globulin 3.4, Albumin/Globulin Ratio 0.6L Height (Feet): 5 Height (Inches): 2.00 Weight (Pounds): 139 Objective VITAL SIGNS: have been reviewed and are otherwise stable HEAD AND NECK: No JVP. No LAD. No thyromegaly. Extraocular movements intact. Pupils are reactive to light and accommodation. LUNGS: Decreased breathing sounds on both sides. CARDIAC: Regular rate and rhythm. S1-S2. No murmur. No rub. ABDOMEN: Soft, nontender, and nondistended. EXTREMITIES: 1+ edema. No clubbing. No cyanosis. Amandeep Howell MD Aug 12, 2018 21:41
--- NOTE | 2018-08-12 22:58 | Nephrology Progress Note ---
Assessment/Plan Assessment 1.MICHELLE 2.CKD 3.HTN 4.Acidosis 5.MILLA Plan PLAN Start bicitra 30 ml po bid check phos ,PTH monitoring renal function avoid NSAID Subjective Constitutional: Reports: no symptoms Subjective alert and awake no cp or sob Objective Objective Last 24 Hour Vital Signs Date Time Temp Pulse Resp B/P (MAP) Pulse Ox O2 Delivery O2 Flow Rate FiO2 08/12/18 22:28 164/73 08/12/18 22:27 164/73 08/12/18 20:57 69 144/64 08/12/18 20:40 71 18 Room Air 21 08/12/18 20:00 98.1 69 20 144/64 (90) 97 08/12/18 16:00 66 08/12/18 16:00 98.1 79 19 160/75 (103) 97 08/12/18 15:15 155/70 08/12/18 15:15 155/70 08/12/18 12:00 72 08/12/18 12:00 97.5 73 19 160/65 (96) 98 08/12/18 10:24 67 18 Room Air 21 08/12/18 09:07 69 161/66 08/12/18 09:07 69 161/66 08/12/18 09:00 Room Air Room Air 08/12/18 08:00 97.4 69 20 161/66 (97) 96 08/12/18 08:00 69 08/12/18 05:34 151/58 08/12/18 05:34 151/58 08/12/18 04:00 64 08/12/18 04:00 97.2 64 18 151/58 (89) 94 08/12/18 01:04 65 20 Room Air 21 08/12/18 00:00 63 08/12/18 00:00 98.1 65 18 134/64 (87) 95 Intake and Output 08/11/18 08/12/18 18:59 06:59 Intake Total 720 ml Balance 720 ml Intake Oral 720 ml # Voids 2 2 Laboratory Tests 08/12/18 05:43: White Blood Count 4.9, Red Blood Count 2.70L, Hemoglobin 8.6L, Hematocrit 27.2L , Mean Corpuscular Volume 101H, Mean Corpuscular Hemoglobin 32.0H, Mean Corpuscular Hemoglobin Concent 31.8L, Red Cell Distribution Width 13.5, Platelet Count 182, Mean Platelet Volume 6.3L, Neutrophils (%) (Auto) 63.2, Lymphocytes (%) (Auto) 23.4, Monocytes (%) (Auto) 8.1, Eosinophils (%) (Auto) 4.5H, Basophils (%) (Auto) 0.8, Sodium Level 141, Potassium Level 4.2, Chloride Level 112H, Carbon Dioxide Level 20L, Anion Gap 9, Blood Urea Nitrogen 47H, Creatinine 3.2H, Estimat Glomerular Filtration Rate 18.3, Glucose Level 206H, Calcium Level 8.0L, Total Bilirubin 0.2, Aspartate Amino Transf (AST/SGOT) 12L, Alanine Aminotransferase (ALT/SGPT) 29, Alkaline Phosphatase 73, Total Protein 5.5L, Albumin 2.1L, Globulin 3.4, Albumin/Globulin Ratio 0.6L Height (Feet): 5 Height (Inches): 2.00 Weight (Pounds): 139 Objective HEAD AND NECK: No JVP. No LAD. No thyromegaly. Extraocular movement intact. Pupils are reactive to light and accommodation. LUNGS: Clear to auscultation. Decreased breathing sound on the both sides. CARDIAC: Regular rate and rhythm. S1 and S2. No murmur. No rub. ABDOMEN: Soft, nontender, and nondistended. EXTREMITIES: Have 1+ edema. No clubbing. No cyanosis. Nabila Park MD Aug 12, 2018 22:58
--- NOTE | 2018-08-12 23:14 | General Progress Note ---
Assessment/Plan Problem List: (1) Anemia ICD Codes: D64.9 - Anemia, unspecified SNOMED: 504355771 (2) Diabetes mellitus ICD Codes: E11.9 - Type 2 diabetes mellitus without complications SNOMED: 39437264 (3) Cardiomegaly ICD Codes: I51.7 - Cardiomegaly SNOMED: 8921147 (4) Asthma ICD Codes: J45.909 - Unspecified asthma, uncomplicated SNOMED: 708436311 (5) Solitary kidney ICD Codes: Q60.0 - Renal agenesis, unilateral SNOMED: 245789166 (6) Moderate pulmonary arterial systolic hypertension ICD Codes: I27.21 - Secondary pulmonary arterial hypertension SNOMED: 87163049 (7) Hypertension ICD Codes: I10 - Essential (primary) hypertension SNOMED: 88267828 Status: progressing Assessment/Plan neg trop chronic pain syndromve afebrie htn sugar is good Subjective ROS Limited/Unobtainable: Yes Allergies: Coded Allergies: LISINOPRIL (Verified Allergy, Unknown, 07/16/18) LOSARTAN (Verified Allergy, Unknown, 07/16/18) Objective Last 24 Hour Vital Signs Date Time Temp Pulse Resp B/P (MAP) Pulse Ox O2 Delivery O2 Flow Rate FiO2 08/12/18 22:28 164/73 08/12/18 22:27 164/73 08/12/18 20:57 69 144/64 08/12/18 20:40 71 18 Room Air 21 08/12/18 20:00 98.1 69 20 144/64 (90) 97 08/12/18 16:00 66 08/12/18 16:00 98.1 79 19 160/75 (103) 97 08/12/18 15:15 155/70 08/12/18 15:15 155/70 08/12/18 12:00 72 08/12/18 12:00 97.5 73 19 160/65 (96) 98 08/12/18 10:24 67 18 Room Air 21 08/12/18 09:07 69 161/66 08/12/18 09:07 69 161/66 08/12/18 09:00 Room Air Room Air 08/12/18 08:00 97.4 69 20 161/66 (97) 96 08/12/18 08:00 69 08/12/18 05:34 151/58 08/12/18 05:34 151/58 08/12/18 04:00 64 08/12/18 04:00 97.2 64 18 151/58 (89) 94 08/12/18 01:04 65 20 Room Air 21 08/12/18 00:00 63 08/12/18 00:00 98.1 65 18 134/64 (87) 95 Intake and Output 08/11/18 08/12/18 18:59 06:59 Intake Total 720 ml Balance 720 ml Intake Oral 720 ml # Voids 2 2 Laboratory Tests 08/12/18 05:43: White Blood Count 4.9, Red Blood Count 2.70L, Hemoglobin 8.6L, Hematocrit 27.2L , Mean Corpuscular Volume 101H, Mean Corpuscular Hemoglobin 32.0H, Mean Corpuscular Hemoglobin Concent 31.8L, Red Cell Distribution Width 13.5, Platelet Count 182, Mean Platelet Volume 6.3L, Neutrophils (%) (Auto) 63.2, Lymphocytes (%) (Auto) 23.4, Monocytes (%) (Auto) 8.1, Eosinophils (%) (Auto) 4.5H, Basophils (%) (Auto) 0.8, Sodium Level 141, Potassium Level 4.2, Chloride Level 112H, Carbon Dioxide Level 20L, Anion Gap 9, Blood Urea Nitrogen 47H, Creatinine 3.2H, Estimat Glomerular Filtration Rate 18.3, Glucose Level 206H, Calcium Level 8.0L, Total Bilirubin 0.2, Aspartate Amino Transf (AST/SGOT) 12L, Alanine Aminotransferase (ALT/SGPT) 29, Alkaline Phosphatase 73, Total Protein 5.5L, Albumin 2.1L, Globulin 3.4, Albumin/Globulin Ratio 0.6L Height (Feet): 5 Height (Inches): 2.00 Weight (Pounds): 139 Cardiovascular: normal rate Respiratory/Chest: lungs clear Abdomen: soft Eligio Neumann MD Aug 12, 2018 23:14
--- NOTE | 2018-08-12 23:36 | Cardiology Progress Note ---
Assessment/Plan Assessment/Plan 1. Accelerated hypertension, well controlled, adjust dosage of anti- hypertensive meds fro better BP control, continue hydralazine, carvedilol, amlodipine and clonidine. 2. Dyspnea most likely secondary to bilateral pleural effusion, status post right thoracentesis yielding about 500 mL of fluid. 2D echocardiography July 17, 2018 showed normal LV systolic and diastolic function with LVEF of approximately 55%. Continue IV antibiotics, pulmonary toilet, and diuretic therapy. 3. Moderate pulmonary hypertension. 4. Stage 5 CKD.with small pericardial effusion. 5. Anemia, possible chronic kidney disease. 6. History of CVA with left hemiparesis, consider aspirin and statins. Subjective Subjective Sinus rhythm at rate of 69. No cardiac events. Objective Last 24 Hour Vital Signs Date Time Temp Pulse Resp B/P (MAP) Pulse Ox O2 Delivery O2 Flow Rate FiO2 08/12/18 22:28 164/73 08/12/18 22:27 164/73 08/12/18 20:57 69 144/64 08/12/18 20:40 71 18 Room Air 21 08/12/18 20:00 98.1 69 20 144/64 (90) 97 08/12/18 16:00 66 08/12/18 16:00 98.1 79 19 160/75 (103) 97 08/12/18 15:15 155/70 08/12/18 15:15 155/70 08/12/18 12:00 72 08/12/18 12:00 97.5 73 19 160/65 (96) 98 08/12/18 10:24 67 18 Room Air 21 08/12/18 09:07 69 161/66 08/12/18 09:07 69 161/66 08/12/18 09:00 Room Air Room Air 08/12/18 08:00 97.4 69 20 161/66 (97) 96 08/12/18 08:00 69 08/12/18 05:34 151/58 08/12/18 05:34 151/58 08/12/18 04:00 64 08/12/18 04:00 97.2 64 18 151/58 (89) 94 08/12/18 01:04 65 20 Room Air 21 08/12/18 00:00 63 08/12/18 00:00 98.1 65 18 134/64 (87) 95 Intake and Output 08/11/18 08/12/18 18:59 06:59 Intake Total 720 ml Balance 720 ml Intake Oral 720 ml # Voids 2 2 2D Echo: LVEF 65%, Mild MR, Normal LVD, RVSP 56mmHg Laboratory Tests Test 08/12/18 05:43 White Blood Count 4.9 K/UL (4.8-10.8) Red Blood Count 2.70 M/UL (4.20-5.40) L Hemoglobin 8.6 G/DL (12.0-16.0) L Hematocrit 27.2 % (37.0-47.0) L Mean Corpuscular Volume 101 FL (80-99) H Mean Corpuscular Hemoglobin 32.0 PG (27.0-31.0) H Mean Corpuscular Hemoglobin Concent 31.8 G/DL (32.0-36.0) L Red Cell Distribution Width 13.5 % (11.6-14.8) Platelet Count 182 K/UL (150-450) Mean Platelet Volume 6.3 FL (6.5-10.1) L Neutrophils (%) (Auto) 63.2 % (45.0-75.0) Lymphocytes (%) (Auto) 23.4 % (20.0-45.0) Monocytes (%) (Auto) 8.1 % (1.0-10.0) Eosinophils (%) (Auto) 4.5 % (0.0-3.0) H Basophils (%) (Auto) 0.8 % (0.0-2.0) Sodium Level 141 MMOL/L (136-145) Potassium Level 4.2 MMOL/L (3.5-5.1) Chloride Level 112 MMOL/L (98-107) H Carbon Dioxide Level 20 MMOL/L (21-32) L Anion Gap 9 mmol/L (5-15) Blood Urea Nitrogen 47 mg/dL (7-18) H Creatinine 3.2 MG/DL (0.55-1.30) H Estimat Glomerular Filtration Rate 18.3 mL/min (>60) Glucose Level 206 MG/DL (74-106) H Calcium Level 8.0 MG/DL (8.5-10.1) L Total Bilirubin 0.2 MG/DL (0.2-1.0) Aspartate Amino Transf (AST/SGOT) 12 U/L (15-37) L Alanine Aminotransferase (ALT/SGPT) 29 U/L (12-78) Alkaline Phosphatase 73 U/L (46-116) Total Protein 5.5 G/DL (6.4-8.2) L Albumin 2.1 G/DL (3.4-5.0) L Globulin 3.4 g/dL Albumin/Globulin Ratio 0.6 (1.0-2.7) L Objective HEENT: Atraumatic and normocephalic. Anicteric. Pupils are equal, round, and reactive to light and accommodation. Extraocular muscles intact. Poor dentition. NECK: JVP less than 5 cm. No carotid bruit. Carotid upstrokes 2+ bilaterally. LUNGS: Bilateral lower lung crackles. Diminished breath sounds on both lungs and the bases. CARDIOVASCULAR: Normal S1, S2. Regular rate and rhythm. No murmurs, gallops, or rubs. ABDOMEN: Soft, nontender, and nondistended. No hepatosplenomegaly. Positive bowel sounds. EXTREMITIES: No evidence of edema, clubbing, or cyanosis. Kwesi Zee MD Aug 12, 2018 23:36
[2018-08-13] VITALS: BP 161/74
[2018-08-13 04:00] VITALS: BP 152/64
[2018-08-13] MEDS: HydrALAZINE 50mg tab ORAL SCH ×3 (06:06→21:30)
[2018-08-13 06:25] LABS: BASOPHILS % (AUTO) 0.7 % (0.0-2.0); EOSINOPHILS % (AUTO) 5.2 % (0.0-3.0); HEMATOCRIT 26.8 % (37.0-47.0); HEMOGLOBIN 8.5 G/DL (12.0-16.0); LYMPHOCYTES % (AUTO) 21.9 % (20.0-45.0); MEAN CORPUSCULAR VOLUME 101 FL (80-99); MONOCYTES % (AUTO) 9.3 % (1.0-10.0); PLATELET COUNT 170 K/UL (150-450); RED BLOOD COUNT 2.65 M/UL (4.20-5.40); RED CELL DISTRIBUTION WIDTH 13.5 % (11.6-14.8); WHITE BLOOD COUNT 4.4 K/UL (4.8-10.8)
[2018-08-13 06:58] LABS: ALANINE AMINOTRANSFERASE 26 U/L (12-78); ALBUMIN 2.2 G/DL (3.4-5.0); ALBUMIN/GLOBULIN RATIO 0.6 (1.0-2.7); ALKALINE PHOSPHATASE 84 U/L (46-116); ANION GAP 11 mmol/L (5-15); ASPARTATE AMINO TRANSFERASE 13 U/L (15-37); BILIRUBIN,TOTAL 0.1 MG/DL (0.2-1.0); BLOOD UREA NITROGEN 48 mg/dL (7-18); CARBON DIOXIDE 18 MMOL/L (21-32); CHLORIDE 110 MMOL/L (98-107); CREATININE 3.2 MG/DL (0.55-1.30); SODIUM 139 MMOL/L (136-145)
--- NOTE | 2018-08-13 07:10 | NUR ---
HAND-OFF: Report given to JENNIFER Brennan. Pt. is in stable condition. Plan of care endorsed.
--- NOTE | 2018-08-13 07:20 | NUR ---
NURSE NOTES: Pt received from My Janae RN alert and oriented x4 with no s/s of pain, SOB, or n/v. IV site asymptomatic and patent, on saline lock. Bed in lowest position, call light and belongings within reach.
[2018-08-13 08:00] VITALS: BP 143/60
[2018-08-13] MEDS: Carvedilol 12.5mg tab ORAL SCH ×2 (08:55→21:27)
[2018-08-13] MEDS: Sodium Citrate 30ml ORAL SCH ×2 (08:55→17:43)
--- NOTE | 2018-08-13 08:55 | NUR ---
CASE MANAGEMENT:REVIEW 08/13/18 SI: AC/CHR RENAL FAILURE. PLEURAL EFFUSION 98.6 64 18 148/64 96% ON RA H/H-8.5/26.8 BUN+48 CR+3.2 IS: PROCRIT SQ MWF BICITRA PO BID CLONIDINE PO Q8HRS HYDRALAZINE PO Q8 NORVASC PO QD PLAVIX PO QD PROTONIX PO QD COREG PO Q12 NEURONTIN PO Q12 HEPARIN SQ Q12 REMERON PO QHS PERCOCET PO Q4HRS PRN : TELEMETRY STATUS DCP; FROM HOME PLAN: CONTINUE TO MONITOR RENAL FUNCTION
--- NOTE | 2018-08-13 08:59 | NUR ---
INSURANCE FAXED TO: [facility] [place] P:[phone] F:[phone] REF#[id number]
[2018-08-13] MEDS: Heparin 5000 units/ml inj SUBQ SCH ×2 (09:00→20:58)
--- NOTE | 2018-08-13 09:32 | General Progress Note ---
Assessment/Plan Problem List: (1) Acute on chronic renal failure ICD Codes: N17.9 - Acute kidney failure, unspecified; N18.9 - Chronic kidney disease, unspecified SNOMED: 988336049 Qualifiers: Qualified Codes: N17.9 - Acute kidney failure, unspecified; N18.9 - Chronic kidney disease, unspecified (2) Anemia ICD Codes: D64.9 - Anemia, unspecified SNOMED: 126275484 (3) Hypertension ICD Codes: I10 - Essential (primary) hypertension SNOMED: 69318303 (4) Diabetes mellitus ICD Codes: E11.9 - Type 2 diabetes mellitus without complications SNOMED: 49170265 Status: unchanged Assessment/Plan pulm tx prn bp bs control cbc bmp am Subjective Constitutional: Reports: weakness Allergies: Coded Allergies: LISINOPRIL (Verified Allergy, Unknown, 07/16/18) LOSARTAN (Verified Allergy, Unknown, 07/16/18) All Systems: reviewed and negative except above Subjective calm in bed sl sob Objective Last 24 Hour Vital Signs Date Time Temp Pulse Resp B/P (MAP) Pulse Ox O2 Delivery O2 Flow Rate FiO2 08/13/18 09:00 Room Air Room Air 08/13/18 08:55 63 143/60 08/13/18 08:54 63 143/60 08/13/18 08:07 76 18 Room Air 21 08/13/18 08:00 62 08/13/18 08:00 97.7 63 20 143/60 (87) 97 08/13/18 06:06 148/64 08/13/18 06:06 148/64 08/13/18 04:00 64 08/13/18 04:00 98.6 64 18 152/64 (93) 96 08/13/18 00:00 98.5 71 20 161/74 (103) 98 08/13/18 00:00 74 08/12/18 22:28 164/73 08/12/18 22:27 164/73 08/12/18 21:00 Room Air Room Air 08/12/18 20:57 69 144/64 08/12/18 20:40 71 18 Room Air 21 08/12/18 20:00 98.1 69 20 144/64 (90) 97 08/12/18 20:00 67 08/12/18 16:00 66 08/12/18 16:00 98.1 79 19 160/75 (103) 97 08/12/18 15:15 155/70 08/12/18 15:15 155/70 08/12/18 12:00 72 08/12/18 12:00 97.5 73 19 160/65 (96) 98 08/12/18 10:24 67 18 Room Air 21 Intake and Output 08/12/18 08/13/18 19:00 07:00 Intake Total 260 ml Balance 260 ml Intake Oral 260 ml # Voids 3 2 # Bowel Movements 2 Laboratory Tests 08/13/18 05:55: White Blood Count 4.4L, Red Blood Count 2.65L, Hemoglobin 8.5L, Hematocrit 26.8L , Mean Corpuscular Volume 101H, Mean Corpuscular Hemoglobin 32.0H, Mean Corpuscular Hemoglobin Concent 31.7L, Red Cell Distribution Width 13.5, Platelet Count 170, Mean Platelet Volume 6.7, Neutrophils (%) (Auto) 63.0, Lymphocytes (%) (Auto) 21.9, Monocytes (%) (Auto) 9.3, Eosinophils (%) (Auto) 5.2H, Basophils (%) (Auto) 0.7, Sodium Level 139, Potassium Level 4.0, Chloride Level 110H, Carbon Dioxide Level 18L, Anion Gap 11, Blood Urea Nitrogen 48H, Creatinine 3.2H, Estimat Glomerular Filtration Rate 18.3, Glucose Level 249H, Calcium Level 8.0L, Total Bilirubin 0.1L, Aspartate Amino Transf (AST/SGOT) 13L , Alanine Aminotransferase (ALT/SGPT) 26, Alkaline Phosphatase 84, Total Protein 5.6L, Albumin 2.2L, Globulin 3.4, Albumin/Globulin Ratio 0.6L Height (Feet): 5 Height (Inches): 2.00 Weight (Pounds): 139 General Appearance: lethargic EENT: normal ENT inspection Neck: normal alignment Cardiovascular: normal peripheral pulses, normal rate, regular rhythm Respiratory/Chest: chest wall non-tender, decreased breath sounds Abdomen: normal bowel sounds, non tender, soft Extremities: normal inspection Edema: 1+ Arm (L), 1+ Arm (R), 1+ Leg (L), 1+ Leg (R), 1+ Pedal (L), 1+ Pedal ( R), 1+ Generalized Edema: trace edema Neurologic: responsive, motor weakness Skin: normal pigmentation, warm/dry Naun Geiger DO Aug 13, 2018 09:32
--- NOTE | 2018-08-13 09:51 | Nephrology Progress Note ---
Assessment/Plan Assessment 1.MICHELLE 2.CKD 3.HTN 4.Acidosis 5.MILLA Plan PLAN Start bicitra 30 ml po bid check phos ,PTH monitoring renal function avoid NSAID Subjective Subjective alert and awake no complaints Objective Objective Last 24 Hour Vital Signs Date Time Temp Pulse Resp B/P (MAP) Pulse Ox O2 Delivery O2 Flow Rate FiO2 08/13/18 09:00 Room Air Room Air 08/13/18 08:55 63 143/60 08/13/18 08:54 63 143/60 08/13/18 08:07 76 18 Room Air 21 08/13/18 08:00 62 08/13/18 08:00 97.7 63 20 143/60 (87) 97 08/13/18 06:06 148/64 08/13/18 06:06 148/64 08/13/18 04:00 64 08/13/18 04:00 98.6 64 18 152/64 (93) 96 08/13/18 00:00 98.5 71 20 161/74 (103) 98 08/13/18 00:00 74 08/12/18 22:28 164/73 08/12/18 22:27 164/73 08/12/18 21:00 Room Air Room Air 08/12/18 20:57 69 144/64 08/12/18 20:40 71 18 Room Air 21 08/12/18 20:00 98.1 69 20 144/64 (90) 97 08/12/18 20:00 67 08/12/18 16:00 66 08/12/18 16:00 98.1 79 19 160/75 (103) 97 08/12/18 15:15 155/70 08/12/18 15:15 155/70 08/12/18 12:00 72 08/12/18 12:00 97.5 73 19 160/65 (96) 98 08/12/18 10:24 67 18 Room Air 21 Intake and Output 08/12/18 08/13/18 19:00 07:00 Intake Total 260 ml Balance 260 ml Intake Oral 260 ml # Voids 3 2 # Bowel Movements 2 Laboratory Tests 08/13/18 05:55: White Blood Count 4.4L, Red Blood Count 2.65L, Hemoglobin 8.5L, Hematocrit 26.8L , Mean Corpuscular Volume 101H, Mean Corpuscular Hemoglobin 32.0H, Mean Corpuscular Hemoglobin Concent 31.7L, Red Cell Distribution Width 13.5, Platelet Count 170, Mean Platelet Volume 6.7, Neutrophils (%) (Auto) 63.0, Lymphocytes (%) (Auto) 21.9, Monocytes (%) (Auto) 9.3, Eosinophils (%) (Auto) 5.2H, Basophils (%) (Auto) 0.7, Sodium Level 139, Potassium Level 4.0, Chloride Level 110H, Carbon Dioxide Level 18L, Anion Gap 11, Blood Urea Nitrogen 48H, Creatinine 3.2H, Estimat Glomerular Filtration Rate 18.3, Glucose Level 249H, Calcium Level 8.0L, Total Bilirubin 0.1L, Aspartate Amino Transf (AST/SGOT) 13L , Alanine Aminotransferase (ALT/SGPT) 26, Alkaline Phosphatase 84, Total Protein 5.6L, Albumin 2.2L, Globulin 3.4, Albumin/Globulin Ratio 0.6L Height (Feet): 5 Height (Inches): 2.00 Weight (Pounds): 139 Objective HEAD AND NECK: No JVP. No LAD. No thyromegaly. Extraocular movement intact. Pupils are reactive to light and accommodation. LUNGS: Clear to auscultation. Decreased breathing sound on the both sides. CARDIAC: Regular rate and rhythm. S1 and S2. No murmur. No rub. ABDOMEN: Soft, nontender, and nondistended. EXTREMITIES: Have 1+ edema. No clubbing. No cyanosis. Nabila aPrk MD Aug 13, 2018 09:51
--- NOTE | 2018-08-13 11:41 | Infectious Diseases Prog Note ---
Assessment/Plan Assessment/Plan A; Leukocytosis resolved Hypoxemia CHF CKD DM type 2 s/p CVA P: Observe off antibiotic Subjective ROS Limited/Unobtainable: No Constitutional: Reports: no symptoms Respiratory: Reports: shortness of breath Cardiovascular: Reports: dyspnea on exertion Gastrointestinal/Abdominal: Reports: no symptoms Genitourinary: Reports: no symptoms Allergies: Coded Allergies: LISINOPRIL (Verified Allergy, Unknown, 07/16/18) LOSARTAN (Verified Allergy, Unknown, 07/16/18) Objective Vital Signs Last 24 Hour Vital Signs Date Time Temp Pulse Resp B/P (MAP) Pulse Ox O2 Delivery O2 Flow Rate FiO2 08/13/18 09:00 Room Air Room Air 08/13/18 08:55 63 143/60 08/13/18 08:54 63 143/60 08/13/18 08:07 76 18 Room Air 21 08/13/18 08:00 62 08/13/18 08:00 97.7 63 20 143/60 (87) 97 08/13/18 06:06 148/64 08/13/18 06:06 148/64 08/13/18 04:00 64 08/13/18 04:00 98.6 64 18 152/64 (93) 96 08/13/18 00:00 98.5 71 20 161/74 (103) 98 08/13/18 00:00 74 08/12/18 22:28 164/73 08/12/18 22:27 164/73 08/12/18 21:00 Room Air Room Air 08/12/18 20:57 69 144/64 08/12/18 20:40 71 18 Room Air 21 08/12/18 20:00 98.1 69 20 144/64 (90) 97 08/12/18 20:00 67 08/12/18 16:00 66 08/12/18 16:00 98.1 79 19 160/75 (103) 97 08/12/18 15:15 155/70 08/12/18 15:15 155/70 08/12/18 12:00 72 08/12/18 12:00 97.5 73 19 160/65 (96) 98 Height (Feet): 5 Height (Inches): 2.00 Weight (Pounds): 139 General Appearance: no acute distress HEENT: mucous membranes moist Respiratory/Chest: lungs clear Cardiovascular: normal rate Abdomen: soft, non tender Extremities: other - edema of legs Neurologic/Psychiatric: alert, oriented x 3, responsive Laboratory Tests Test 08/13/18 05:55 White Blood Count 4.4 K/UL (4.8-10.8) L Red Blood Count 2.65 M/UL (4.20-5.40) L Hemoglobin 8.5 G/DL (12.0-16.0) L Hematocrit 26.8 % (37.0-47.0) L Mean Corpuscular Volume 101 FL (80-99) H Mean Corpuscular Hemoglobin 32.0 PG (27.0-31.0) H Mean Corpuscular Hemoglobin Concent 31.7 G/DL (32.0-36.0) L Red Cell Distribution Width 13.5 % (11.6-14.8) Platelet Count 170 K/UL (150-450) Mean Platelet Volume 6.7 FL (6.5-10.1) Neutrophils (%) (Auto) 63.0 % (45.0-75.0) Lymphocytes (%) (Auto) 21.9 % (20.0-45.0) Monocytes (%) (Auto) 9.3 % (1.0-10.0) Eosinophils (%) (Auto) 5.2 % (0.0-3.0) H Basophils (%) (Auto) 0.7 % (0.0-2.0) Sodium Level 139 MMOL/L (136-145) Potassium Level 4.0 MMOL/L (3.5-5.1) Chloride Level 110 MMOL/L (98-107) H Carbon Dioxide Level 18 MMOL/L (21-32) L Anion Gap 11 mmol/L (5-15) Blood Urea Nitrogen 48 mg/dL (7-18) H Creatinine 3.2 MG/DL (0.55-1.30) H Estimat Glomerular Filtration Rate 18.3 mL/min (>60) Glucose Level 249 MG/DL (74-106) H Calcium Level 8.0 MG/DL (8.5-10.1) L Total Bilirubin 0.1 MG/DL (0.2-1.0) L Aspartate Amino Transf (AST/SGOT) 13 U/L (15-37) L Alanine Aminotransferase (ALT/SGPT) 26 U/L (12-78) Alkaline Phosphatase 84 U/L (46-116) Total Protein 5.6 G/DL (6.4-8.2) L Albumin 2.2 G/DL (3.4-5.0) L Globulin 3.4 g/dL Albumin/Globulin Ratio 0.6 (1.0-2.7) L Current Medications Medications (Trade) Dose Ordered Sig/Zara Route PRN Reason Start Time Stop Time Status Last Admin Dose Admin Acetaminophen (Tylenol) 650 mg Q4H PRN ORAL Mild Pain/Temp > 100.5 08/09/18 12:15 09/08/18 12:14 Albuterol/ Ipratropium (Albuterol/ Ipratropium) 3 ml Q4H PRN HHN Shortness of Breath 08/09/18 12:15 08/14/18 12:14 Amlodipine Besylate (Norvasc) 10 mg DAILY ORAL 08/10/18 09:00 09/09/18 08:59 08/13/18 08:54 Atorvastatin Calcium (Lipitor) 10 mg BEDTIME ORAL 08/09/18 21:00 09/08/18 20:59 08/12/18 20:56 Carvedilol (Coreg) 37.5 mg EVERY 12 HOURS ORAL 08/09/18 21:00 09/08/18 20:59 08/13/18 08:55 Clonidine HCl (Catapres Tab) 0.1 mg EVERY 8 HOURS ORAL 08/10/18 22:00 09/09/18 21:59 08/13/18 06:06 Clopidogrel Bisulfate (Plavix) 75 mg DAILY ORAL 08/10/18 09:00 09/09/18 08:59 08/13/18 08:55 Epoetin Yordan (Procrit (for non ESRD use)) 5,000 units TUE-TUE-TUE SUBQ 08/11/18 21:00 09/10/18 20:59 08/11/18 21:15 Gabapentin (Neurontin) 300 mg Q12HR ORAL 08/09/18 21:00 09/08/18 20:59 08/13/18 08:55 Heparin Sodium (Porcine) (Heparin 5000 units/ml) 5,000 units EVERY 12 HOURS SUBQ 08/09/18 21:00 09/08/18 20:59 08/13/18 09:00 Hydralazine HCl (Apresoline) 100 mg Q8HR ORAL 08/10/18 14:00 09/09/18 13:59 08/13/18 06:06 Minoxidil (Loniten) 2.5 mg Q4H PRN ORAL sbp> 165 08/09/18 12:15 09/08/18 12:14 08/11/18 00:00 Mirtazapine (Remeron) 7.5 mg BEDTIME ORAL 08/09/18 21:00 09/08/18 20:59 08/12/18 20:57 Nateglinide (Starlix) 120 mg TIAC ORAL 08/09/18 16:30 09/08/18 16:29 08/13/18 06:05 Ondansetron HCl (Zofran) 4 mg Q6H PRN IVP Nausea & Vomiting 08/09/18 12:15 09/08/18 12:14 Oxycodone/ Acetaminophen (Percocet 10/325) 1 tab Q4H PRN ORAL moderate-severe (4-10) pain 08/09/18 12:15 08/16/18 12:14 08/13/18 09:02 Pantoprazole (Protonix) 40 mg DAILY ORAL 08/10/18 09:00 09/09/18 08:59 08/13/18 08:54 Polyethylene Glycol (Miralax) 17 gm DAILYPRN PRN ORAL Constipation 08/09/18 12:15 09/08/18 12:14 Sodium Citrate (Bicitra) 30 ml BID ORAL 08/11/18 18:00 09/10/18 17:59 08/13/18 08:55 Trazodone HCl (Desyrel) 50 mg BEDTIME ORAL 08/09/18 21:00 09/08/18 20:59 08/12/18 20:56 Jt Rizvi MD Aug 13, 2018 11:41
--- NOTE | 2018-08-13 11:54 | General Progress Note ---
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 D/w Dr. Hagen and he concurred. Subjective Date patient seen: Aug 13, 2018 Time patient seen: 10:30 - am Allergies: Coded Allergies: LISINOPRIL (Verified Allergy, Unknown, 07/16/18) LOSARTAN (Verified Allergy, Unknown, 07/16/18) Subjective REVIEW OF SYSTEMS: Denies rash, fever, chills, sweating, dizziness, drowsiness, blurred vision, sore throat, change in her weight. No shortness of breath at this time. No chest pain, palpitations, or cough. No nausea, vomiting, diarrhea, or blood in the stool or urine. No bowel or bladder incontinence. She is complaining of generalized body pain. SUBJECTIVE: Patient shows no signs of pain or distress. Her pain has been tolerated on the Percocet 5 doses in the last 24hrs. No new complaints at this time. Objective Last 24 Hour Vital Signs Date Time Temp Pulse Resp B/P (MAP) Pulse Ox O2 Delivery O2 Flow Rate FiO2 08/13/18 09:00 Room Air Room Air 08/13/18 08:55 63 143/60 08/13/18 08:54 63 143/60 08/13/18 08:07 76 18 Room Air 21 08/13/18 08:00 62 08/13/18 08:00 97.7 63 20 143/60 (87) 97 08/13/18 06:06 148/64 08/13/18 06:06 148/64 08/13/18 04:00 64 08/13/18 04:00 98.6 64 18 152/64 (93) 96 08/13/18 00:00 98.5 71 20 161/74 (103) 98 08/13/18 00:00 74 08/12/18 22:28 164/73 08/12/18 22:27 164/73 08/12/18 21:00 Room Air Room Air 08/12/18 20:57 69 144/64 08/12/18 20:40 71 18 Room Air 21 08/12/18 20:00 98.1 69 20 144/64 (90) 97 08/12/18 20:00 67 1/5/19 16:00 66 08/12/18 16:00 98.1 79 19 160/75 (103) 97 08/12/18 15:15 155/70 08/12/18 15:15 155/70 08/12/18 12:00 72 08/12/18 12:00 97.5 73 19 160/65 (96) 98 Intake and Output 08/12/18 08/13/18 19:00 07:00 Intake Total 260 ml Balance 260 ml Intake Oral 260 ml # Voids 3 2 # Bowel Movements 2 Laboratory Tests 08/13/18 05:55: White Blood Count 4.4L, Red Blood Count 2.65L, Hemoglobin 8.5L, Hematocrit 26.8L , Mean Corpuscular Volume 101H, Mean Corpuscular Hemoglobin 32.0H, Mean Corpuscular Hemoglobin Concent 31.7L, Red Cell Distribution Width 13.5, Platelet Count 170, Mean Platelet Volume 6.7, Neutrophils (%) (Auto) 63.0, Lymphocytes (%) (Auto) 21.9, Monocytes (%) (Auto) 9.3, Eosinophils (%) (Auto) 5.2H, Basophils (%) (Auto) 0.7, Sodium Level 139, Potassium Level 4.0, Chloride Level 110H, Carbon Dioxide Level 18L, Anion Gap 11, Blood Urea Nitrogen 48H, Creatinine 3.2H, Estimat Glomerular Filtration Rate 18.3, Glucose Level 249H, Calcium Level 8.0L, Total Bilirubin 0.1L, Aspartate Amino Transf (AST/SGOT) 13L , Alanine Aminotransferase (ALT/SGPT) 26, Alkaline Phosphatase 84, Total Protein 5.6L, Albumin 2.2L, Globulin 3.4, Albumin/Globulin Ratio 0.6L Height (Feet): 5 Height (Inches): 2.00 Weight (Pounds): 139 Objective GENERAL: Alert, awake, and oriented. LUNGS: Decreased breath sounds bilaterally. HEART: S1 and S2 regular. ABDOMEN: Benign. EXTREMITIES: No cyanosis. No clubbing. NEURO: No changes. Kwabena Verduzco Aug 13, 2018 11:54
[2018-08-13 12:00] VITALS: BP 132/61
--- NOTE | 2018-08-13 12:25 | Pulmonology Progress Note ---
Assessment/Plan Assessment/Plan ASSESSMENT: The patient is a 53-year-old female, history of solitary kidney, CKD stage 4, hypertension, hyperlipidemia, prior admission with pleural effusions likely congestive heart failure, and anemia presenting with shortness of breath likely decompensated heart failure. The patient does not clinically appear infected, is afebrile, has only a mild leukocytosis. She is being treated for possible pneumonia with Rocephin under the care of the Infectious Disease service. PROBLEM LIST: 1. Mild hypoxemia. 2. Questionable history of asthma. 3. Likely decompensated heart failure. 4. Prior CT scan 07/19/2018 with evidence of mediastinal, hilar, and axillary lymphadenopathy. 5. History of transudative pleural effusion. 6. Pulmonary hypertension. 7. CKD. 8. Edema. 9. Prior CVA. TREATMENT PLAN: 1. Optimize pulmonary hygiene/mobilize as tolerated. 2. Titrate FiO2 to keep saturations greater than 90%. 3. P.r.n. bronchodilators. 4. Monitor volumes and renal function, consider diuresis. 5. F/U renal and cards recs 6. CT chest with minimal GGO's and non-specific LAD, will compare with radiology tommorrow 7. The patient may need further workup as an outpatient including endobronchial ultrasound versus mediastinoscopy. 8. Observe off Antibiotics per ID. 9. Aspiration precautions. 10. INVESTIGATIVE WRITER recs, VSS 11. DVT prophylaxis heparin subcutaneous. 12. The patient should have outpatient pulmonary workup including full PFTs. Subjective Allergies: Coded Allergies: LISINOPRIL (Verified Allergy, Unknown, 07/16/18) LOSARTAN (Verified Allergy, Unknown, 07/16/18) Subjective AFVSS on RA CT chest reviewed No SOB + QUIROGA with minimal activity no cough no CP no F/C Objective Last 24 Hour Vital Signs Date Time Temp Pulse Resp B/P (MAP) Pulse Ox O2 Delivery O2 Flow Rate FiO2 08/13/18 09:00 Room Air Room Air 08/13/18 08:55 63 143/60 08/13/18 08:54 63 143/60 08/13/18 08:07 76 18 Room Air 21 08/13/18 08:00 62 08/13/18 08:00 97.7 63 20 143/60 (87) 97 08/13/18 06:06 148/64 08/13/18 06:06 148/64 08/13/18 04:00 64 08/13/18 04:00 98.6 64 18 152/64 (93) 96 08/13/18 00:00 98.5 71 20 161/74 (103) 98 08/13/18 00:00 74 08/12/18 22:28 164/73 08/12/18 22:27 164/73 08/12/18 21:00 Room Air Room Air 08/12/18 20:57 69 144/64 08/12/18 20:40 71 18 Room Air 21 08/12/18 20:00 98.1 69 20 144/64 (90) 97 08/12/18 20:00 67 08/12/18 16:00 66 08/12/18 16:00 98.1 79 19 160/75 (103) 97 08/12/18 15:15 155/70 08/12/18 15:15 155/70 Intake and Output 08/12/18 08/13/18 19:00 07:00 Intake Total 260 ml Balance 260 ml Intake Oral 260 ml # Voids 3 2 # Bowel Movements 2 General Appearance: no acute distress, cachetic HEENT: normocephalic, atraumatic, anicteric, mucous membranes moist Respiratory/Chest: chest wall non-tender, lungs clear, normal breath sounds, no respiratory distress, no accessory muscle use Cardiovascular: normal peripheral pulses, normal rate, regular rhythm Abdomen: normal bowel sounds, soft, non tender, no organomegaly, non distended , no mass Extremities: no cyanosis, no clubbing, no edema Laboratory Tests 08/13/18 05:55: White Blood Count 4.4L, Red Blood Count 2.65L, Hemoglobin 8.5L, Hematocrit 26.8L , Mean Corpuscular Volume 101H, Mean Corpuscular Hemoglobin 32.0H, Mean Corpuscular Hemoglobin Concent 31.7L, Red Cell Distribution Width 13.5, Platelet Count 170, Mean Platelet Volume 6.7, Neutrophils (%) (Auto) 63.0, Lymphocytes (%) (Auto) 21.9, Monocytes (%) (Auto) 9.3, Eosinophils (%) (Auto) 5.2H, Basophils (%) (Auto) 0.7, Sodium Level 139, Potassium Level 4.0, Chloride Level 110H, Carbon Dioxide Level 18L, Anion Gap 11, Blood Urea Nitrogen 48H, Creatinine 3.2H, Estimat Glomerular Filtration Rate 18.3, Glucose Level 249H, Calcium Level 8.0L, Total Bilirubin 0.1L, Aspartate Amino Transf (AST/SGOT) 13L , Alanine Aminotransferase (ALT/SGPT) 26, Alkaline Phosphatase 84, Total Protein 5.6L, Albumin 2.2L, Globulin 3.4, Albumin/Globulin Ratio 0.6L Current Medications Medications (Trade) Dose Ordered Sig/Zara Route PRN Reason Start Time Stop Time Status Last Admin Dose Admin Acetaminophen (Tylenol) 650 mg Q4H PRN ORAL Mild Pain/Temp > 100.5 08/09/18 12:15 09/08/18 12:14 Albuterol/ Ipratropium (Albuterol/ Ipratropium) 3 ml Q4H PRN HHN Shortness of Breath 08/09/18 12:15 08/14/18 12:14 Amlodipine Besylate (Norvasc) 10 mg DAILY ORAL 08/10/18 09:00 09/09/18 08:59 08/13/18 08:54 Atorvastatin Calcium (Lipitor) 10 mg BEDTIME ORAL 08/09/18 21:00 09/08/18 20:59 08/12/18 20:56 Carvedilol (Coreg) 37.5 mg EVERY 12 HOURS ORAL 08/09/18 21:00 09/08/18 20:59 08/13/18 08:55 Clonidine HCl (Catapres Tab) 0.1 mg EVERY 8 HOURS ORAL 08/10/18 22:00 09/09/18 21:59 08/13/18 06:06 Clopidogrel Bisulfate (Plavix) 75 mg DAILY ORAL 08/10/18 09:00 09/09/18 08:59 08/13/18 08:55 Epoetin Yordan (Procrit (for non ESRD use)) 5,000 units TUE-WED-TUE SUBQ 08/11/18 21:00 09/10/18 20:59 08/11/18 21:15 Gabapentin (Neurontin) 300 mg Q12HR ORAL 08/09/18 21:00 09/08/18 20:59 08/13/18 08:55 Heparin Sodium (Porcine) (Heparin 5000 units/ml) 5,000 units EVERY 12 HOURS SUBQ 08/09/18 21:00 09/08/18 20:59 08/13/18 09:00 Hydralazine HCl (Apresoline) 100 mg Q8HR ORAL 08/10/18 14:00 09/09/18 13:59 08/13/18 06:06 Minoxidil (Loniten) 2.5 mg Q4H PRN ORAL sbp> 165 08/09/18 12:15 09/08/18 12:14 08/11/18 00:00 Mirtazapine (Remeron) 7.5 mg BEDTIME ORAL 08/09/18 21:00 09/08/18 20:59 08/12/18 20:57 Nateglinide (Starlix) 120 mg TIAC ORAL 08/09/18 16:30 09/08/18 16:29 08/13/18 11:45 Ondansetron HCl (Zofran) 4 mg Q6H PRN IVP Nausea & Vomiting 08/09/18 12:15 09/08/18 12:14 Oxycodone/ Acetaminophen (Percocet 10/325) 1 tab Q4H PRN ORAL moderate-severe (4-10) pain 08/09/18 12:15 08/16/18 12:14 08/13/18 09:02 Pantoprazole (Protonix) 40 mg DAILY ORAL 08/10/18 09:00 09/09/18 08:59 08/13/18 08:54 Polyethylene Glycol (Miralax) 17 gm DAILYPRN PRN ORAL Constipation 08/09/18 12:15 09/08/18 12:14 Sodium Citrate (Bicitra) 30 ml BID ORAL 08/11/18 18:00 09/10/18 17:59 08/13/18 08:55 Trazodone HCl (Desyrel) 50 mg BEDTIME ORAL 08/09/18 21:00 09/08/18 20:59 08/12/18 20:56 Kevin Gutiérrez MD Aug 13, 2018 12:25
--- NOTE | 2018-08-13 19:19 | NUR ---
HAND-OFF: Report given to JENNIFER Vargas.
--- NOTE | 2018-08-13 19:20 | NUR ---
NURSE NOTES: Received report from JENNIFER Brennan. Pt is awake and resting in bed. In no acute distress. IV line intact and patent. Bed in lowest position, call light within reach. Will continue plan of care.
[2018-08-13 20:00] VITALS: BP 133/60
[2018-08-13] MEDS: TraZODone 50mg tab ORAL SCH (21:24)
--- NOTE | 2018-08-13 22:20 | General Progress Note ---
Assessment/Plan Assessment/Plan ASSESSMENT/RECS: #. Anemia of chronic disease -- patient with ongoing kidney damage, cr is elevated approx 2-2.5 baseline --> anemia panel has been reviewed and tsh, ferritin, tibc, esr, b12, folate, fibrinogen, iron % reviewed --> appreciate nephrology consult --> continue on epogen --> transfuse if hgb is <7 --> hemolysis w/u has been reviewed --> trend hgb 8.9-->8.4-->8.5-->10.7 --> ON EPO SQ AND IRON IV # Leukopenia wbc in the 4-6 range --> hepatitis panel negative, hiv neg --> us abd shows borderline spleen enlargement # Acute versus chronic renal failure. as per renal etiology of acute renal failure is cardiorenal syndrome, prerenal azotemia versus unstable --> bp to improve on current meds --> nephro recs appreciated #. Coagulopathy with elevated inr --> recheck in future prn, now improved #. Congestive heart failure, but at this point the patient seems to be euvolemic. --> as per cardiology #. 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 #. Uncontrolled hypertension. --> now better #. Pleural eff s/p thora Greatly appreciate consultation Subjective Constitutional: Denies: no symptoms, chills, diaphoresis, fever, malaise, weakness, other HEENT: Denies: no symptoms, eye pain, blurred vision, tearing, double vision, ear pain, ear discharge, nose pain, nose congestion, throat pain, throat swelling, mouth pain, mouth swelling, other Cardiovascular: Denies: no symptoms, chest pain, edema, irregular heart rate, lightheadedness, palpitations, syncope, other Respiratory: Denies: no symptoms, cough, orthopnea, shortness of breath, SOB with excertion, SOB at rest, sputum, stridor, wheezing, other Gastrointestinal/Abdominal: Denies: no symptoms, abdomen distended, abdominal pain, black stools, tarry stools, blood in stool, constipated, diarrhea, difficulty swallowing, nausea, poor appetite, poor fluid intake, rectal bleeding , vomiting, other Genitourinary: Denies: no symptoms, burning, discharge, frequency, flank pain, hematuria, incontinence, pain, urgency, other Neurologic/Psychiatric: Denies: no symptoms, anxiety, depressed, emotional problems, headache, numbness, paresthesia, pre-existing deficit, seizure, tingling, tremors, weakness, other Endocrine: Denies: no symptoms, excessive sweating, flushing, intolerance to cold, intolerance to heat, increased hunger, increased thirst, increased urine, unexplained weight gain, unexplained weight loss, other Hematologic/Lymphatic: Denies: no symptoms, anemia, easy bleeding, easy bruising, other Allergies: Coded Allergies: LISINOPRIL (Verified Allergy, Unknown, 07/16/18) LOSARTAN (Verified Allergy, Unknown, 07/16/18) Subjective 08/11/18: Pt is awake and resting in bed, denies acute distress, no events reported, cbc reviewed. 08/12/18: Pt is seen in the room, resting in bed, watching T.V, leukocytosis resolved,on laboratory monitor 08/13/18:Pt is seen in the room, resting in bed, Aox3. plt 170 today, no events reported Objective Last 24 Hour Vital Signs Date Time Temp Pulse Resp B/P (MAP) Pulse Ox O2 Delivery O2 Flow Rate FiO2 08/13/18 21:30 145/61 08/13/18 21:28 145/61 08/13/18 21:27 67 145/61 08/13/18 21:00 Room Air Room Air 08/13/18 20:03 80 20 Room Air 21 08/13/18 16:00 65 08/13/18 14:52 136/80 08/13/18 14:52 136/80 08/13/18 12:00 65 08/13/18 12:00 97.5 65 21 132/61 (84) 100 08/13/18 09:00 Room Air Room Air 08/13/18 08:55 63 143/60 08/13/18 08:54 63 143/60 08/13/18 08:07 76 18 Room Air 21 08/13/18 08:00 62 08/13/18 08:00 97.7 63 20 143/60 (87) 97 08/13/18 06:06 148/64 08/13/18 06:06 148/64 08/13/18 04:00 64 08/13/18 04:00 98.6 64 18 152/64 (93) 96 08/13/18 00:00 98.5 71 20 161/74 (103) 98 08/13/18 00:00 74 08/12/18 22:28 164/73 08/12/18 22:27 164/73 Intake and Output 08/12/18 08/13/18 19:00 07:00 Intake Total 260 ml Balance 260 ml Intake Oral 260 ml # Voids 3 2 # Bowel Movements 2 Laboratory Tests 08/13/18 05:55: White Blood Count 4.4L, Red Blood Count 2.65L, Hemoglobin 8.5L, Hematocrit 26.8L , Mean Corpuscular Volume 101H, Mean Corpuscular Hemoglobin 32.0H, Mean Corpuscular Hemoglobin Concent 31.7L, Red Cell Distribution Width 13.5, Platelet Count 170, Mean Platelet Volume 6.7, Neutrophils (%) (Auto) 63.0, Lymphocytes (%) (Auto) 21.9, Monocytes (%) (Auto) 9.3, Eosinophils (%) (Auto) 5.2H, Basophils (%) (Auto) 0.7, Sodium Level 139, Potassium Level 4.0, Chloride Level 110H, Carbon Dioxide Level 18L, Anion Gap 11, Blood Urea Nitrogen 48H, Creatinine 3.2H, Estimat Glomerular Filtration Rate 18.3, Glucose Level 249H, Calcium Level 8.0L, Total Bilirubin 0.1L, Aspartate Amino Transf (AST/SGOT) 13L , Alanine Aminotransferase (ALT/SGPT) 26, Alkaline Phosphatase 84, Total Protein 5.6L, Albumin 2.2L, Globulin 3.4, Albumin/Globulin Ratio 0.6L Height (Feet): 5 Height (Inches): 2.00 Weight (Pounds): 139 Objective VITAL SIGNS: have been reviewed and are otherwise stable HEAD AND NECK: No JVP. No LAD. No thyromegaly. Extraocular movements intact. Pupils are reactive to light and accommodation. LUNGS: Decreased breathing sounds on both sides. CARDIAC: Regular rate and rhythm. S1-S2. No murmur. No rub. ABDOMEN: Soft, nontender, and nondistended. EXTREMITIES: 1+ edema. No clubbing. No cyanosis. Amandeep Howell MD Aug 13, 2018 22:20
--- NOTE | 2018-08-13 23:56 | Cardiology Progress Note ---
Assessment/Plan Assessment/Plan 1. Accelerated hypertension, stage II, adjust dosage of anti-hypertensive meds fro better BP control, continue hydralazine, carvedilol, amlodipine and clonidine. 2. Dyspnea most likely secondary to bilateral pleural effusion, status post right thoracentesis yielding about 500 mL of fluid. 2D echocardiography July 17, 2018 showed normal LV systolic and diastolic function with LVEF of approximately 55%. Continue IV antibiotics, pulmonary toilet, and diuretic therapy. 3. Moderate pulmonary hypertension. 4. Stage 5 CKD with small pericardial effusion. 5. Anemia, possible chronic kidney disease. 6. History of CVA with left hemiparesis, consider aspirin and statins. Subjective Subjective Sinus rhythm at rate of 67. On room air. No cardiac events. Objective Last 24 Hour Vital Signs Date Time Temp Pulse Resp B/P (MAP) Pulse Ox O2 Delivery O2 Flow Rate FiO2 08/13/18 21:30 145/61 08/13/18 21:28 145/61 08/13/18 21:27 67 145/61 08/13/18 21:00 Room Air Room Air 08/13/18 20:03 80 20 Room Air 21 08/13/18 20:00 97.9 65 20 133/60 (84) 96 08/13/18 20:00 65 08/13/18 16:00 65 08/13/18 14:52 136/80 08/13/18 14:52 136/80 08/13/18 12:00 65 08/13/18 12:00 97.5 65 21 132/61 (84) 100 08/13/18 09:00 Room Air Room Air 08/13/18 08:55 63 143/60 08/13/18 08:54 63 143/60 08/13/18 08:07 76 18 Room Air 21 08/13/18 08:00 62 08/13/18 08:00 97.7 63 20 143/60 (87) 97 08/13/18 06:06 148/64 08/13/18 06:06 148/64 08/13/18 04:00 64 08/13/18 04:00 98.6 64 18 152/64 (93) 96 08/13/18 00:00 98.5 71 20 161/74 (103) 98 08/13/18 00:00 74 Intake and Output 08/12/18 08/13/18 19:00 07:00 Intake Total 260 ml Balance 260 ml Intake Oral 260 ml # Voids 3 2 # Bowel Movements 2 2D Echo: LVEF 65%, Mild MR, Normal LVD, RVSP 56mmHg Laboratory Tests Test 08/13/18 05:55 White Blood Count 4.4 K/UL (4.8-10.8) L Red Blood Count 2.65 M/UL (4.20-5.40) L Hemoglobin 8.5 G/DL (12.0-16.0) L Hematocrit 26.8 % (37.0-47.0) L Mean Corpuscular Volume 101 FL (80-99) H Mean Corpuscular Hemoglobin 32.0 PG (27.0-31.0) H Mean Corpuscular Hemoglobin Concent 31.7 G/DL (32.0-36.0) L Red Cell Distribution Width 13.5 % (11.6-14.8) Platelet Count 170 K/UL (150-450) Mean Platelet Volume 6.7 FL (6.5-10.1) Neutrophils (%) (Auto) 63.0 % (45.0-75.0) Lymphocytes (%) (Auto) 21.9 % (20.0-45.0) Monocytes (%) (Auto) 9.3 % (1.0-10.0) Eosinophils (%) (Auto) 5.2 % (0.0-3.0) H Basophils (%) (Auto) 0.7 % (0.0-2.0) Sodium Level 139 MMOL/L (136-145) Potassium Level 4.0 MMOL/L (3.5-5.1) Chloride Level 110 MMOL/L (98-107) H Carbon Dioxide Level 18 MMOL/L (21-32) L Anion Gap 11 mmol/L (5-15) Blood Urea Nitrogen 48 mg/dL (7-18) H Creatinine 3.2 MG/DL (0.55-1.30) H Estimat Glomerular Filtration Rate 18.3 mL/min (>60) Glucose Level 249 MG/DL (74-106) H Calcium Level 8.0 MG/DL (8.5-10.1) L Total Bilirubin 0.1 MG/DL (0.2-1.0) L Aspartate Amino Transf (AST/SGOT) 13 U/L (15-37) L Alanine Aminotransferase (ALT/SGPT) 26 U/L (12-78) Alkaline Phosphatase 84 U/L (46-116) Total Protein 5.6 G/DL (6.4-8.2) L Albumin 2.2 G/DL (3.4-5.0) L Globulin 3.4 g/dL Albumin/Globulin Ratio 0.6 (1.0-2.7) L Objective HEENT: Atraumatic and normocephalic. Anicteric. Pupils are equal, round, and reactive to light and accommodation. Extraocular muscles intact. Poor dentition. NECK: JVP less than 5 cm. No carotid bruit. Carotid upstrokes 2+ bilaterally. LUNGS: Bilateral lower lung crackles. Diminished breath sounds on both lungs and the bases. CARDIOVASCULAR: Normal S1, S2. Regular rate and rhythm. No murmurs, gallops, or rubs. ABDOMEN: Soft, nontender, and nondistended. No hepatosplenomegaly. Positive bowel sounds. EXTREMITIES: No evidence of edema, clubbing, or cyanosis. Kwesi Zee MD Aug 13, 2018 23:55
[2018-08-14] VITALS: BP 135/60
[2018-08-14 04:00] VITALS: BP 134/60
[2018-08-14] MEDS: HydrALAZINE 50mg tab ORAL SCH ×3 (06:13→21:32)
--- NOTE | 2018-08-14 07:32 | NUR ---
HAND-OFF: Report given to JENNIFER Gastelum.
--- NOTE | 2018-08-14 07:40 | General Progress Note ---
Assessment/Plan Assessment/Plan #. Anemia of chronic disease -- patient with ongoing kidney damage, cr is elevated approx 2-2.5 baseline --> anemia panel has been ordered and tsh, ferritin, tibc, esr, b12, folate, fibrinogen, iron % reviewed --> appreciate nephrology consult --> continue on epogen --> transfuse if hgb is <7 --> hemolysis w/u has been reviewed --> trend hgb 8.9-->8.4-->8.5-->10.7 --> ON EPO SQ AND IRON IV # Leukopenia wbc in the 4-6 range --> hepatitis panel negative, hiv neg --> us abd shows borderline spleen enlargement # Acute versus chronic renal failure. as per renal etiology of acute renal failure is cardiorenal syndrome, prerenal azotemia versus unstable --> bp to improve on current meds --> nephro recs appreciated #. Coagulopathy with elevated inr --> recheck in future prn, now improved #. Congestive heart failure, but at this point the patient seems to be euvolemic. --> as per cardiology #. 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 #. Uncontrolled hypertension. --> now better #. Pleural eff s/p thora Greatly appreciate consultation Subjective Constitutional: Denies: no symptoms, chills, diaphoresis, fever, malaise, weakness, other HEENT: Denies: no symptoms, eye pain, blurred vision, tearing, double vision, ear pain, ear discharge, nose pain, nose congestion, throat pain, throat swelling, mouth pain, mouth swelling, other Cardiovascular: Denies: no symptoms, chest pain, edema, irregular heart rate, lightheadedness, palpitations, syncope, other Respiratory: Denies: no symptoms, cough, orthopnea, shortness of breath, SOB with excertion, SOB at rest, sputum, stridor, wheezing, other Gastrointestinal/Abdominal: Denies: no symptoms, abdomen distended, abdominal pain, black stools, tarry stools, blood in stool, constipated, diarrhea, difficulty swallowing, nausea, poor appetite, poor fluid intake, rectal bleeding , vomiting, other Genitourinary: Denies: no symptoms, burning, discharge, frequency, flank pain, hematuria, incontinence, pain, urgency, other Neurologic/Psychiatric: Denies: no symptoms, anxiety, depressed, emotional problems, headache, numbness, paresthesia, pre-existing deficit, seizure, tingling, tremors, weakness, other Allergies: Coded Allergies: LISINOPRIL (Verified Allergy, Unknown, 07/16/18) LOSARTAN (Verified Allergy, Unknown, 07/16/18) Subjective 08/11/18: Pt is awake and resting in bed, denies acute distress, no events reported, cbc reviewed. 08/12/18: Pt is seen in the room, resting in bed, watching T.V, leukocytosis resolved,on universal banker 08/13/18:Pt is seen in the room, resting in bed, Aox3. plt 170 today, no events reported 08/14/18: no events overnight, no major changes noted, cr is higher Objective Last 24 Hour Vital Signs Date Time Temp Pulse Resp B/P (MAP) Pulse Ox O2 Delivery O2 Flow Rate FiO2 08/14/18 06:13 140/68 08/14/18 06:13 140/68 08/14/18 04:00 62 08/14/18 04:00 97.9 62 20 134/60 (84) 98 08/14/18 00:00 70 08/14/18 00:00 98.0 70 20 135/60 (85) 97 08/13/18 21:30 145/61 08/13/18 21:28 145/61 08/13/18 21:27 67 145/61 08/13/18 21:00 Room Air Room Air 08/13/18 20:03 80 20 Room Air 21 08/13/18 20:00 97.9 65 20 133/60 (84) 96 08/13/18 20:00 65 08/13/18 16:00 65 08/13/18 14:52 136/80 08/13/18 14:52 136/80 08/13/18 12:00 65 08/13/18 12:00 97.5 65 21 132/61 (84) 100 08/13/18 09:00 Room Air Room Air 08/13/18 08:55 63 143/60 08/13/18 08:54 63 143/60 08/13/18 08:07 76 18 Room Air 21 08/13/18 08:00 62 08/13/18 08:00 97.7 63 20 143/60 (87) 97 Intake and Output 1/6/19 1/7/19 18:59 06:59 Intake Total 240 ml Balance 240 ml Intake Oral 240 ml # Voids 2 1 Height (Feet): 5 Height (Inches): 2.00 Weight (Pounds): 139 Objective VITAL SIGNS: have been reviewed and are otherwise stable HEAD AND NECK: No JVP. No LAD. No thyromegaly. Extraocular movements intact. Pupils are reactive to light and accommodation. LUNGS: Decreased breathing sounds on both sides. CARDIAC: Regular rate and rhythm. S1-S2. No murmur. No rub. ABDOMEN: Soft, nontender, and nondistended. EXTREMITIES: 1+ edema. No clubbing. No cyanosis. Amandeep Howell MD Aug 14, 2018 07:40
--- NOTE | 2018-08-14 07:41 | NUR ---
NURSE NOTES: Received report from JENNIFER Vargas. Pt is resting in bed. No distress noted at this time. Bed is in lowest position, side rails up X2, and call light is within reach. Will continue to monitor.
[2018-08-14 08:00] VITALS: BP 140/67
[2018-08-14 08:03] LABS: BASOPHILS % (AUTO) 0.8 % (0.0-2.0); EOSINOPHILS % (AUTO) 5.2 % (0.0-3.0); MEAN CORPUSCULAR VOLUME 101 FL (80-99); MONOCYTES % (AUTO) 8.9 % (1.0-10.0); PLATELET COUNT 176 K/UL (150-450); RED BLOOD COUNT 2.79 M/UL (4.20-5.40); RED CELL DISTRIBUTION WIDTH 14.1 % (11.6-14.8); WHITE BLOOD COUNT 3.8 K/UL (4.8-10.8)
[2018-08-14] MEDS: Carvedilol 12.5mg tab ORAL SCH ×2 (08:13→21:02)
[2018-08-14] MEDS: Sodium Citrate 30ml ORAL SCH ×2 (08:13→17:06)
[2018-08-14] MEDS: Heparin 5000 units/ml inj SUBQ SCH ×2 (08:18→21:01)
[2018-08-14 08:23] LABS: ALANINE AMINOTRANSFERASE 30 U/L (12-78); ALBUMIN 2.1 G/DL (3.4-5.0); ALBUMIN/GLOBULIN RATIO 0.6 (1.0-2.7); ALKALINE PHOSPHATASE 80 U/L (46-116); ANION GAP 11 mmol/L (5-15); ASPARTATE AMINO TRANSFERASE 21 U/L (15-37); BILIRUBIN,TOTAL 0.2 MG/DL (0.2-1.0); BLOOD UREA NITROGEN 49 mg/dL (7-18); CALCIUM 8.1 MG/DL (8.5-10.1); CARBON DIOXIDE 18 MMOL/L (21-32); CHLORIDE 109 MMOL/L (98-107); POTASSIUM 4.4 MMOL/L (3.5-5.1); SODIUM 138 MMOL/L (136-145)
--- NOTE | 2018-08-14 09:36 | NUR ---
CASE MANAGEMENT:REVIEW 08/14/18 SI: AC/CHR RENAL FAILURE. PLEURAL EFFUSION 97.9 62 20 134/60 98% ON RA WBC-3.8 H/H-9.0/28.0 BUN+49 CR=3.0 IS: PROCRIT SQ MWF BICITRA PO BID CLONIDINE PO Q8HRS HYDRALAZINE PO Q8 NORVASC PO QD PLAVIX PO QD PROTONIX PO QD COREG PO Q12 NEURONTIN PO Q12 HEPARIN SQ Q12 REMERON PO QHS PERCOCET PO Q4HRS PRN : TELEMETRY STATUS DCP; FROM HOME PLAN: PATIENT IS REQUESTING A WHEELCHAIR AND HOSPITAL BED FOR HOME ACCORDING TO SPLICING SUPERVISOR RYAN, PATIENT RECEIVED A WHEELCHAIR LAST ADMISSION PATIENT DOES NOT QUALIFY FOR HOSPITAL BED
--- NOTE | 2018-08-14 09:41 | NUR ---
INSURANCE FAXED TO: [facility] P:[phone] F:[phone] REF#[id number]
--- NOTE | 2018-08-14 09:41 | NUR ---
DISCHARGE PLANNING DME ORDER NOTED WHEELCHAIR WAS ORDERED FOR PATIENT LAST ADMISSION PATIENT DOES NOT QUALIFY FOR HOSPITAL BED SO ONE CANNOT BE ORDERED FOR HER
--- NOTE | 2018-08-14 09:45 | NUR ---
PT NOTE: Attempted to see patient for PT treatment. Patient declined to participate with PT treatment, states she doesn't feel well. Will re-attempt as schedule permits. Oriana RODRIGUEZ notified.
[2018-08-14 12:00] VITALS: BP 132/51
--- NOTE | 2018-08-14 12:06 | NUR ---
ST NOTE: FOLLOWED UP PT'S CONDITIONS. RECEIVED VIDEOSWALLOW STUDY ORDER FROM , DR. SEGUNDO. ATTEMPTED 2 TIMES IN AM. PT REFUSED EVEN DISCUSSED THE IMPORTANCE OF VIDEOSWALLOW STUDY. RNPETER, NOTIFIED.
--- NOTE | 2018-08-14 13:22 | Pulmonology Progress Note ---
Assessment/Plan Assessment/Plan ASSESSMENT: The patient is a 53-year-old female, history of solitary kidney, CKD stage 4, hypertension, hyperlipidemia, prior admission with pleural effusions likely congestive heart failure, and anemia presenting with shortness of breath likely decompensated heart failure. The patient does not clinically appear infected, is afebrile, has only a mild leukocytosis. She is being treated for possible pneumonia with Rocephin under the care of the Infectious Disease service. PROBLEM LIST: 1. Mild hypoxemia. 2. Questionable history of asthma. 3. Likely decompensated heart failure. 4. Prior CT scan 07/19/2018 with evidence of mediastinal, hilar, and axillary lymphadenopathy. 5. History of transudative pleural effusion. 6. Pulmonary hypertension. 7. CKD. 8. Edema. 9. Prior CVA. TREATMENT PLAN: 1. Optimize pulmonary hygiene/mobilize as tolerated. 2. Titrate FiO2 to keep saturations greater than 90%. 3. P.r.n. bronchodilators. 4. Monitor volumes and renal function, consider diuresis. 5. F/U renal and cards recs 6. CT chest with minimal GGO's and non-specific LAD, will compare with radiology 7. The patient may need further workup as an outpatient including endobronchial ultrasound versus mediastinoscopy. 8. Observe off Antibiotics per ID. 9. Aspiration precautions. 10. FAMILY [employer]ICE COUNSELOR recs, VSS (refused) 11. DVT prophylaxis heparin subcutaneous. 12. The patient should have outpatient pulmonary workup including full PFTs. Subjective Allergies: Coded Allergies: LISINOPRIL (Verified Allergy, Unknown, 07/16/18) LOSARTAN (Verified Allergy, Unknown, 07/16/18) Subjective AFVSS on RA Refused HHN, refused VCC, refused PT No SOB + QUIROGA with minimal activity no cough no CP no F/C Objective Last 24 Hour Vital Signs Date Time Temp Pulse Resp B/P (MAP) Pulse Ox O2 Delivery O2 Flow Rate FiO2 08/14/18 12:00 62 14 132/51 (78) 97 08/14/18 09:00 Room Air Room Air 08/14/18 08:35 65 18 Room Air 21 08/14/18 08:14 62 140/67 08/14/18 08:13 62 140/67 08/14/18 08:00 62 14 140/67 (91) 97 08/14/18 08:00 62 08/14/18 06:13 140/68 08/14/18 06:13 140/68 08/14/18 04:00 62 08/14/18 04:00 97.9 62 20 134/60 (84) 98 08/14/18 00:00 70 08/14/18 00:00 98.0 70 20 135/60 (85) 97 08/13/18 21:30 145/61 08/13/18 21:28 145/61 08/13/18 21:27 67 145/61 08/13/18 21:00 Room Air Room Air 08/13/18 20:03 80 20 Room Air 21 08/13/18 20:00 97.9 65 20 133/60 (84) 96 08/13/18 20:00 65 08/13/18 16:00 65 08/13/18 14:52 136/80 08/13/18 14:52 136/80 Intake and Output 08/13/18 08/14/18 19:00 07:00 Intake Total 240 ml Balance 240 ml Intake Oral 240 ml # Voids 2 1 General Appearance: no acute distress, cachetic HEENT: normocephalic, atraumatic, anicteric, mucous membranes moist Respiratory/Chest: chest wall non-tender, lungs clear, normal breath sounds, no respiratory distress, no accessory muscle use Cardiovascular: normal peripheral pulses, normal rate, regular rhythm Abdomen: normal bowel sounds, soft, non tender, no organomegaly, non distended , no mass Extremities: no cyanosis, no clubbing, no edema Laboratory Tests 08/14/18 07:35: White Blood Count 3.8L, Red Blood Count 2.79L, Hemoglobin 9.0L, Hematocrit 28.0L , Mean Corpuscular Volume 101H, Mean Corpuscular Hemoglobin 32.3H, Mean Corpuscular Hemoglobin Concent 32.1, Red Cell Distribution Width 14.1, Platelet Count 176, Mean Platelet Volume 7.4, Neutrophils (%) (Auto) 61.0, Lymphocytes (% ) (Auto) 24.0, Monocytes (%) (Auto) 8.9, Eosinophils (%) (Auto) 5.2H, Basophils (%) (Auto) 0.8, Sodium Level 138, Potassium Level 4.4, Chloride Level 109H, Carbon Dioxide Level 18L, Anion Gap 11, Blood Urea Nitrogen 49H, Creatinine 3.0H , Estimat Glomerular Filtration Rate 19.6, Glucose Level 221H, Calcium Level 8.1L, Total Bilirubin 0.2, Aspartate Amino Transf (AST/SGOT) 21, Alanine Aminotransferase (ALT/SGPT) 30, Alkaline Phosphatase 80, Total Protein 5.5L, Albumin 2.1L, Globulin 3.4, Albumin/Globulin Ratio 0.6L Current Medications Medications (Trade) Dose Ordered Sig/Zara Route PRN Reason Start Time Stop Time Status Last Admin Dose Admin Acetaminophen (Tylenol) 650 mg Q4H PRN ORAL Mild Pain/Temp > 100.5 08/09/18 12:15 09/08/18 12:14 Amlodipine Besylate (Norvasc) 10 mg DAILY ORAL 08/10/18 09:00 09/09/18 08:59 08/14/18 08:14 Atorvastatin Calcium (Lipitor) 10 mg BEDTIME ORAL 08/09/18 21:00 09/08/18 20:59 08/13/18 21:24 Carvedilol (Coreg) 37.5 mg EVERY 12 HOURS ORAL 08/09/18 21:00 09/08/18 20:59 08/14/18 08:13 Clonidine HCl (Catapres Tab) 0.1 mg EVERY 8 HOURS ORAL 08/10/18 22:00 09/09/18 21:59 08/14/18 06:13 Clopidogrel Bisulfate (Plavix) 75 mg DAILY ORAL 08/10/18 09:00 09/09/18 08:59 08/14/18 08:13 Epoetin Yordan (Procrit (for non ESRD use)) 5,000 units TUE-TUE-TUE SUBQ 08/11/18 21:00 09/10/18 20:59 08/11/18 21:15 Gabapentin (Neurontin) 300 mg Q12HR ORAL 08/09/18 21:00 09/08/18 20:59 08/14/18 08:13 Heparin Sodium (Porcine) (Heparin 5000 units/ml) 5,000 units EVERY 12 HOURS SUBQ 08/09/18 21:00 09/08/18 20:59 08/14/18 08:18 Hydralazine HCl (Apresoline) 100 mg Q8HR ORAL 08/10/18 14:00 09/09/18 13:59 08/14/18 06:13 Minoxidil (Loniten) 2.5 mg Q4H PRN ORAL sbp> 165 08/09/18 12:15 09/08/18 12:14 08/11/18 00:00 Mirtazapine (Remeron) 7.5 mg BEDTIME ORAL 08/09/18 21:00 09/08/18 20:59 08/13/18 21:24 Nateglinide (Starlix) 120 mg TIAC ORAL 08/09/18 16:30 09/08/18 16:29 08/14/18 11:03 Ondansetron HCl (Zofran) 4 mg Q6H PRN IVP Nausea & Vomiting 08/09/18 12:15 09/08/18 12:14 Oxycodone/ Acetaminophen (Percocet 10/325) 1 tab Q4H PRN ORAL moderate-severe (4-10) pain 08/09/18 12:15 08/16/18 12:14 08/14/18 08:47 Pantoprazole (Protonix) 40 mg DAILY ORAL 08/10/18 09:00 09/09/18 08:59 08/14/18 08:14 Polyethylene Glycol (Miralax) 17 gm DAILYPRN PRN ORAL Constipation 08/09/18 12:15 09/08/18 12:14 Sodium Citrate (Bicitra) 30 ml BID ORAL 08/11/18 18:00 09/10/18 17:59 08/14/18 08:13 Trazodone HCl (Desyrel) 50 mg BEDTIME ORAL 08/09/18 21:00 09/08/18 20:59 08/13/18 21:24 Kevin Gutiérrez MD Aug 14, 2018 13:22
--- NOTE | 2018-08-14 13:30 | Infectious Diseases Prog Note ---
Assessment/Plan Assessment/Plan A; Leukocytosis resolved Hypoxemia CHF CKD DM type 2 s/p CVA P: Observe off antibiotic Subjective ROS Limited/Unobtainable: No Constitutional: Reports: fatigue Respiratory: Reports: shortness of breath Cardiovascular: Reports: dyspnea on exertion Neurologic: Reports: no symptoms Allergies: Coded Allergies: LISINOPRIL (Verified Allergy, Unknown, 07/16/18) LOSARTAN (Verified Allergy, Unknown, 07/16/18) Objective Vital Signs Last 24 Hour Vital Signs Date Time Temp Pulse Resp B/P (MAP) Pulse Ox O2 Delivery O2 Flow Rate FiO2 08/14/18 12:00 62 14 132/51 (78) 97 08/14/18 09:00 Room Air Room Air 08/14/18 08:35 65 18 Room Air 21 08/14/18 08:14 62 140/67 08/14/18 08:13 62 140/67 08/14/18 08:00 62 14 140/67 (91) 97 08/14/18 08:00 62 08/14/18 06:13 140/68 08/14/18 06:13 140/68 08/14/18 04:00 62 08/14/18 04:00 97.9 62 20 134/60 (84) 98 08/14/18 00:00 70 08/14/18 00:00 98.0 70 20 135/60 (85) 97 08/13/18 21:30 145/61 08/13/18 21:28 145/61 08/13/18 21:27 67 145/61 08/13/18 21:00 Room Air Room Air 08/13/18 20:03 80 20 Room Air 21 08/13/18 20:00 97.9 65 20 133/60 (84) 96 08/13/18 20:00 65 08/13/18 16:00 65 08/13/18 14:52 136/80 08/13/18 14:52 136/80 Height (Feet): 5 Height (Inches): 2.00 Weight (Pounds): 139 General Appearance: no acute distress HEENT: mucous membranes moist Respiratory/Chest: lungs clear Cardiovascular: normal rate Abdomen: soft, non tender Extremities: other - edema of legs & left arm Neurologic/Psychiatric: alert, oriented x 3, responsive, motor weakness, other - left side Laboratory Tests Test 08/14/18 07:35 White Blood Count 3.8 K/UL (4.8-10.8) L Red Blood Count 2.79 M/UL (4.20-5.40) L Hemoglobin 9.0 G/DL (12.0-16.0) L Hematocrit 28.0 % (37.0-47.0) L Mean Corpuscular Volume 101 FL (80-99) H Mean Corpuscular Hemoglobin 32.3 PG (27.0-31.0) H Mean Corpuscular Hemoglobin Concent 32.1 G/DL (32.0-36.0) Red Cell Distribution Width 14.1 % (11.6-14.8) Platelet Count 176 K/UL (150-450) Mean Platelet Volume 7.4 FL (6.5-10.1) Neutrophils (%) (Auto) 61.0 % (45.0-75.0) Lymphocytes (%) (Auto) 24.0 % (20.0-45.0) Monocytes (%) (Auto) 8.9 % (1.0-10.0) Eosinophils (%) (Auto) 5.2 % (0.0-3.0) H Basophils (%) (Auto) 0.8 % (0.0-2.0) Sodium Level 138 MMOL/L (136-145) Potassium Level 4.4 MMOL/L (3.5-5.1) Chloride Level 109 MMOL/L (98-107) H Carbon Dioxide Level 18 MMOL/L (21-32) L Anion Gap 11 mmol/L (5-15) Blood Urea Nitrogen 49 mg/dL (7-18) H Creatinine 3.0 MG/DL (0.55-1.30) H Estimat Glomerular Filtration Rate 19.6 mL/min (>60) Glucose Level 221 MG/DL (74-106) H Calcium Level 8.1 MG/DL (8.5-10.1) L Total Bilirubin 0.2 MG/DL (0.2-1.0) Aspartate Amino Transf (AST/SGOT) 21 U/L (15-37) Alanine Aminotransferase (ALT/SGPT) 30 U/L (12-78) Alkaline Phosphatase 80 U/L (46-116) Total Protein 5.5 G/DL (6.4-8.2) L Albumin 2.1 G/DL (3.4-5.0) L Globulin 3.4 g/dL Albumin/Globulin Ratio 0.6 (1.0-2.7) L Current Medications Medications (Trade) Dose Ordered Sig/Zara Route PRN Reason Start Time Stop Time Status Last Admin Dose Admin Acetaminophen (Tylenol) 650 mg Q4H PRN ORAL Mild Pain/Temp > 100.5 08/09/18 12:15 09/08/18 12:14 Amlodipine Besylate (Norvasc) 10 mg DAILY ORAL 08/10/18 09:00 09/09/18 08:59 08/14/18 08:14 Atorvastatin Calcium (Lipitor) 10 mg BEDTIME ORAL 08/09/18 21:00 09/08/18 20:59 08/13/18 21:24 Carvedilol (Coreg) 37.5 mg EVERY 12 HOURS ORAL 08/09/18 21:00 09/08/18 20:59 08/14/18 08:13 Clonidine HCl (Catapres Tab) 0.1 mg EVERY 8 HOURS ORAL 08/10/18 22:00 09/09/18 21:59 08/14/18 06:13 Clopidogrel Bisulfate (Plavix) 75 mg DAILY ORAL 08/10/18 09:00 09/09/18 08:59 08/14/18 08:13 Epoetin Yordan (Procrit (for non ESRD use)) 5,000 units TUE-TUE-TUE SUBQ 08/11/18 21:00 09/10/18 20:59 08/11/18 21:15 Gabapentin (Neurontin) 300 mg Q12HR ORAL 08/09/18 21:00 09/08/18 20:59 08/14/18 08:13 Heparin Sodium (Porcine) (Heparin 5000 units/ml) 5,000 units EVERY 12 HOURS SUBQ 08/09/18 21:00 09/08/18 20:59 08/14/18 08:18 Hydralazine HCl (Apresoline) 100 mg Q8HR ORAL 08/10/18 14:00 09/09/18 13:59 08/14/18 06:13 Minoxidil (Loniten) 2.5 mg Q4H PRN ORAL sbp> 165 08/09/18 12:15 09/08/18 12:14 08/11/18 00:00 Mirtazapine (Remeron) 7.5 mg BEDTIME ORAL 08/09/18 21:00 09/08/18 20:59 08/13/18 21:24 Nateglinide (Starlix) 120 mg TIAC ORAL 08/09/18 16:30 09/08/18 16:29 08/14/18 11:03 Ondansetron HCl (Zofran) 4 mg Q6H PRN IVP Nausea & Vomiting 08/09/18 12:15 09/08/18 12:14 Oxycodone/ Acetaminophen (Percocet 10/325) 1 tab Q4H PRN ORAL moderate-severe (4-10) pain 08/09/18 12:15 08/16/18 12:14 08/14/18 08:47 Pantoprazole (Protonix) 40 mg DAILY ORAL 08/10/18 09:00 09/09/18 08:59 08/14/18 08:14 Polyethylene Glycol (Miralax) 17 gm DAILYPRN PRN ORAL Constipation 08/09/18 12:15 09/08/18 12:14 Sodium Citrate (Bicitra) 30 ml BID ORAL 08/11/18 18:00 09/10/18 17:59 08/14/18 08:13 Trazodone HCl (Desyrel) 50 mg BEDTIME ORAL 08/09/18 21:00 09/08/18 20:59 08/13/18 21:24 Jt Rizvi MD Aug 14, 2018 13:30
--- NOTE | 2018-08-14 14:00 | General Progress Note ---
Assessment/Plan Problem List: (1) Acute on chronic renal failure ICD Codes: N17.9 - Acute kidney failure, unspecified; N18.9 - Chronic kidney disease, unspecified SNOMED: 625950720 Qualifiers: Qualified Codes: N17.9 - Acute kidney failure, unspecified; N18.9 - Chronic kidney disease, unspecified (2) Anemia ICD Codes: D64.9 - Anemia, unspecified SNOMED: 887419760 (3) Hypertension ICD Codes: I10 - Essential (primary) hypertension SNOMED: 87453577 (4) Diabetes mellitus ICD Codes: E11.9 - Type 2 diabetes mellitus without complications SNOMED: 59540309 Status: stable, progressing Assessment/Plan pulm tx prn bp bs control cbc bmp amn dc plan Subjective Constitutional: Reports: weakness Allergies: Coded Allergies: LISINOPRIL (Verified Allergy, Unknown, 07/16/18) LOSARTAN (Verified Allergy, Unknown, 07/16/18) All Systems: reviewed and negative except above Subjective calm in bed sl sob Objective Last 24 Hour Vital Signs Date Time Temp Pulse Resp B/P (MAP) Pulse Ox O2 Delivery O2 Flow Rate FiO2 08/14/18 13:40 132/51 08/14/18 13:40 132/51 08/14/18 12:00 62 14 132/51 (78) 97 08/14/18 09:00 Room Air Room Air 08/14/18 08:35 65 18 Room Air 21 08/14/18 08:14 62 140/67 08/14/18 08:13 62 140/67 08/14/18 08:00 62 14 140/67 (91) 97 08/14/18 08:00 62 08/14/18 06:13 140/68 08/14/18 06:13 140/68 08/14/18 04:00 62 08/14/18 04:00 97.9 62 20 134/60 (84) 98 08/14/18 00:00 70 08/14/18 00:00 98.0 70 20 135/60 (85) 97 08/13/18 21:30 145/61 08/13/18 21:28 145/61 08/13/18 21:27 67 145/61 08/13/18 21:00 Room Air Room Air 08/13/18 20:03 80 20 Room Air 21 08/13/18 20:00 97.9 65 20 133/60 (84) 96 08/13/18 20:00 65 08/13/18 16:00 65 08/13/18 14:52 136/80 08/13/18 14:52 136/80 Intake and Output 08/13/18 08/14/18 19:00 07:00 Intake Total 240 ml Balance 240 ml Intake Oral 240 ml # Voids 2 1 Laboratory Tests 08/14/18 07:35: White Blood Count 3.8L, Red Blood Count 2.79L, Hemoglobin 9.0L, Hematocrit 28.0L , Mean Corpuscular Volume 101H, Mean Corpuscular Hemoglobin 32.3H, Mean Corpuscular Hemoglobin Concent 32.1, Red Cell Distribution Width 14.1, Platelet Count 176, Mean Platelet Volume 7.4, Neutrophils (%) (Auto) 61.0, Lymphocytes (% ) (Auto) 24.0, Monocytes (%) (Auto) 8.9, Eosinophils (%) (Auto) 5.2H, Basophils (%) (Auto) 0.8, Sodium Level 138, Potassium Level 4.4, Chloride Level 109H, Carbon Dioxide Level 18L, Anion Gap 11, Blood Urea Nitrogen 49H, Creatinine 3.0H , Estimat Glomerular Filtration Rate 19.6, Glucose Level 221H, Calcium Level 8.1L, Total Bilirubin 0.2, Aspartate Amino Transf (AST/SGOT) 21, Alanine Aminotransferase (ALT/SGPT) 30, Alkaline Phosphatase 80, Total Protein 5.5L, Albumin 2.1L, Globulin 3.4, Albumin/Globulin Ratio 0.6L Height (Feet): 5 Height (Inches): 2.00 Weight (Pounds): 139 General Appearance: lethargic EENT: normal ENT inspection Neck: normal alignment Cardiovascular: normal peripheral pulses, normal rate, regular rhythm Respiratory/Chest: chest wall non-tender, decreased breath sounds Abdomen: normal bowel sounds, non tender, soft Extremities: normal inspection Edema: no edema noted Arm (L), no edema noted Arm (R), no edema noted Leg (L), no edema noted Leg (R), no edema noted Pedal (L), no edema noted Pedal (R), no edema noted Generalized Naun Geiger DO Aug 14, 2018 14:00
--- NOTE | 2018-08-14 14:07 | Nephrology Progress Note ---
Assessment/Plan Assessment 1.MICHELLE worsen 2.CKD 3.HTN 4.Acidosis 5.MILLA Plan PLAN Start bicitra 30 ml po bid check phos ,PTH monitoring renal function avoid NSAID Subjective Constitutional: Reports: no symptoms HEENT: Reports: no symptoms Genitourinary: Reports: no symptoms Subjective alert and awake no complaints Objective Objective Last 24 Hour Vital Signs Date Time Temp Pulse Resp B/P (MAP) Pulse Ox O2 Delivery O2 Flow Rate FiO2 08/14/18 13:40 132/51 08/14/18 13:40 132/51 08/14/18 12:00 62 14 132/51 (78) 97 08/14/18 09:00 Room Air Room Air 08/14/18 08:35 65 18 Room Air 21 08/14/18 08:14 62 140/67 08/14/18 08:13 62 140/67 08/14/18 08:00 62 14 140/67 (91) 97 08/14/18 08:00 62 08/14/18 06:13 140/68 08/14/18 06:13 140/68 08/14/18 04:00 62 08/14/18 04:00 97.9 62 20 134/60 (84) 98 08/14/18 00:00 70 08/14/18 00:00 98.0 70 20 135/60 (85) 97 08/13/18 21:30 145/61 08/13/18 21:28 145/61 08/13/18 21:27 67 145/61 08/13/18 21:00 Room Air Room Air 08/13/18 20:03 80 20 Room Air 21 08/13/18 20:00 97.9 65 20 133/60 (84) 96 08/13/18 20:00 65 08/13/18 16:00 65 08/13/18 14:52 136/80 08/13/18 14:52 136/80 Intake and Output 08/13/18 08/14/18 19:00 07:00 Intake Total 240 ml Balance 240 ml Intake Oral 240 ml # Voids 2 1 Laboratory Tests 08/14/18 07:35: White Blood Count 3.8L, Red Blood Count 2.79L, Hemoglobin 9.0L, Hematocrit 28.0L , Mean Corpuscular Volume 101H, Mean Corpuscular Hemoglobin 32.3H, Mean Corpuscular Hemoglobin Concent 32.1, Red Cell Distribution Width 14.1, Platelet Count 176, Mean Platelet Volume 7.4, Neutrophils (%) (Auto) 61.0, Lymphocytes (% ) (Auto) 24.0, Monocytes (%) (Auto) 8.9, Eosinophils (%) (Auto) 5.2H, Basophils (%) (Auto) 0.8, Sodium Level 138, Potassium Level 4.4, Chloride Level 109H, Carbon Dioxide Level 18L, Anion Gap 11, Blood Urea Nitrogen 49H, Creatinine 3.0H , Estimat Glomerular Filtration Rate 19.6, Glucose Level 221H, Calcium Level 8.1L, Total Bilirubin 0.2, Aspartate Amino Transf (AST/SGOT) 21, Alanine Aminotransferase (ALT/SGPT) 30, Alkaline Phosphatase 80, Total Protein 5.5L, Albumin 2.1L, Globulin 3.4, Albumin/Globulin Ratio 0.6L Height (Feet): 5 Height (Inches): 2.00 Weight (Pounds): 139 Objective HEAD AND NECK: No JVP. No LAD. No thyromegaly. Extraocular movement intact. Pupils are reactive to light and accommodation. LUNGS: Clear to auscultation. Decreased breathing sound on the both sides. CARDIAC: Regular rate and rhythm. S1 and S2. No murmur. No rub. ABDOMEN: Soft, nontender, and nondistended. EXTREMITIES: Have 1+ edema. No clubbing. No cyanosis. Nabila Park MD Aug 14, 2018 14:07
[2018-08-14 16:00] VITALS: BP 120/50
--- NOTE | 2018-08-14 18:04 | General Progress Note ---
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 D/w Dr. Hagen and he concurred. Subjective Date patient seen: Aug 14, 2018 Time patient seen: 06:00 - pm Allergies: Coded Allergies: LISINOPRIL (Verified Allergy, Unknown, 07/16/18) LOSARTAN (Verified Allergy, Unknown, 07/16/18) Subjective REVIEW OF SYSTEMS: Denies rash, fever, chills, sweating, dizziness, drowsiness, blurred vision, sore throat, change in her weight. No shortness of breath at this time. No chest pain, palpitations, or cough. No nausea, vomiting, diarrhea, or blood in the stool or urine. No bowel or bladder incontinence. She is complaining of generalized body pain. SUBJECTIVE: Patient continues to c/o pain which has been tolerated on the Percocet. She has no new complaints at this time. Objective Last 24 Hour Vital Signs Date Time Temp Pulse Resp B/P (MAP) Pulse Ox O2 Delivery O2 Flow Rate FiO2 08/14/18 16:00 60 14 120/50 (73) 100 08/14/18 16:00 59 08/14/18 13:40 132/51 08/14/18 13:40 132/51 08/14/18 12:00 62 14 132/51 (78) 97 08/14/18 12:00 60 08/14/18 09:00 Room Air Room Air 08/14/18 08:35 65 18 Room Air 21 08/14/18 08:14 62 140/67 08/14/18 08:13 62 140/67 08/14/18 08:00 62 14 140/67 (91) 97 08/14/18 08:00 62 08/14/18 06:13 140/68 08/14/18 06:13 140/68 08/14/18 04:00 62 08/14/18 04:00 97.9 62 20 134/60 (84) 98 08/14/18 00:00 70 08/14/18 00:00 98.0 70 20 135/60 (85) 97 08/13/18 21:30 145/61 08/13/18 21:28 145/61 08/13/18 21:27 67 145/61 08/13/18 21:00 Room Air Room Air 08/13/18 20:03 80 20 Room Air 21 08/13/18 20:00 97.9 65 20 133/60 (84) 96 08/13/18 20:00 65 Intake and Output 08/13/18 08/14/18 19:00 07:00 Intake Total 240 ml Balance 240 ml Intake Oral 240 ml # Voids 2 1 Laboratory Tests 08/14/18 07:35: White Blood Count 3.8L, Red Blood Count 2.79L, Hemoglobin 9.0L, Hematocrit 28.0L , Mean Corpuscular Volume 101H, Mean Corpuscular Hemoglobin 32.3H, Mean Corpuscular Hemoglobin Concent 32.1, Red Cell Distribution Width 14.1, Platelet Count 176, Mean Platelet Volume 7.4, Neutrophils (%) (Auto) 61.0, Lymphocytes (% ) (Auto) 24.0, Monocytes (%) (Auto) 8.9, Eosinophils (%) (Auto) 5.2H, Basophils (%) (Auto) 0.8, Sodium Level 138, Potassium Level 4.4, Chloride Level 109H, Carbon Dioxide Level 18L, Anion Gap 11, Blood Urea Nitrogen 49H, Creatinine 3.0H , Estimat Glomerular Filtration Rate 19.6, Glucose Level 221H, Calcium Level 8.1L, Calcium (Send out) [Pending], Total Bilirubin 0.2, Aspartate Amino Transf (AST/SGOT) 21, Alanine Aminotransferase (ALT/SGPT) 30, Alkaline Phosphatase 80, Total Protein 5.5L, Albumin 2.1L, Globulin 3.4, Albumin/Globulin Ratio 0.6L, Parathyroid Hormone (Intact) [Pending] Height (Feet): 5 Height (Inches): 2.00 Weight (Pounds): 139 Objective GENERAL: Alert, awake, and oriented. LUNGS: Decreased breath sounds bilaterally. HEART: S1 and S2 regular. ABDOMEN: Benign. EXTREMITIES: No cyanosis. No clubbing. NEURO: No changes. Kwabena Verduzco Aug 14, 2018 18:04
--- NOTE | 2018-08-14 19:57 | NUR ---
NURSE NOTES: report given to Vladislav quinn. Plan of care endorsed.
[2018-08-14 20:00] VITALS: BP 130/59
--- NOTE | 2018-08-14 20:00 | NUR ---
NURSE NOTES: Received report from JENNIFER Shipman. Patient awake, alert and verbally responsive. No SOB, no acute distress, comfortable in bed. IV site on R AC #20, patent and intact. Bed at lowest position, call light within reach. Will continue plan of care.
[2018-08-14] MEDS: TraZODone 50mg tab ORAL SCH (21:01)
[2018-08-14] MEDS: Epogen (for non ESRD use) SUBQ SCH (21:31)
[2018-08-15] VITALS: BP 128/65
--- NOTE | 2018-08-15 03:13 | NUR ---
NURSE NOTES: patient asleep, breathing even and unlabored, no s/sx of pain nor any discomfort at this time. Bed at lowest position, call light within reach. Will continue to monitor.
[2018-08-15 04:00] VITALS: BP 133/52
[2018-08-15] MEDS: HydrALAZINE 50mg tab ORAL SCH ×3 (06:13→22:03)
--- NOTE | 2018-08-15 07:13 | NUR ---
NURSE NOTES: received report from JENNIFER Wayne. Pt is resting in bed. Bed is in lowest position, side rails up X2, and call light is within reach. Will continue to monitor.
--- NOTE | 2018-08-15 07:32 | NUR ---
HAND-OFF: Report given to JENNIFER Shipman. Endorsed plan of care.
[2018-08-15 07:39] LABS: BASOPHILS % (AUTO) 0.7 % (0.0-2.0); EOSINOPHILS % (AUTO) 3.7 % (0.0-3.0); HEMATOCRIT 28.9 % (37.0-47.0); HEMOGLOBIN 9.2 G/DL (12.0-16.0); LYMPHOCYTES % (AUTO) 15.7 % (20.0-45.0); MEAN CORPUSCULAR VOLUME 101 FL (80-99); MONOCYTES % (AUTO) 6.3 % (1.0-10.0); NEUTROPHILS % (AUTO) 73.7 % (45.0-75.0); PLATELET COUNT 178 K/UL (150-450); RED BLOOD COUNT 2.85 M/UL (4.20-5.40); RED CELL DISTRIBUTION WIDTH 13.8 % (11.6-14.8); WHITE BLOOD COUNT 6.1 K/UL (4.8-10.8)
[2018-08-15 07:58] LABS: ANION GAP 11 mmol/L (5-15); BLOOD UREA NITROGEN 53 mg/dL (7-18); CALCIUM 8.3 MG/DL (8.5-10.1); CARBON DIOXIDE 19 MMOL/L (21-32); CHLORIDE 109 MMOL/L (98-107); CREATININE 3.3 MG/DL (0.55-1.30); POTASSIUM 4.4 MMOL/L (3.5-5.1); SODIUM 139 MMOL/L (136-145)
[2018-08-15 08:00] VITALS: BP 153/70
[2018-08-15] MEDS: Carvedilol 12.5mg tab ORAL SCH ×2 (08:25→20:51)
[2018-08-15] MEDS: Heparin 5000 units/ml inj SUBQ SCH ×2 (08:28→20:51)
[2018-08-15] MEDS: Sodium Citrate 30ml ORAL SCH ×2 (08:30→17:19)
--- NOTE | 2018-08-15 08:45 | General Progress Note ---
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 D/w Dr. Hagen and he concurred. Subjective Date patient seen: Aug 15, 2018 Time patient seen: 07:45 - am Allergies: Coded Allergies: LISINOPRIL (Verified Allergy, Unknown, 07/16/18) LOSARTAN (Verified Allergy, Unknown, 07/16/18) Subjective REVIEW OF SYSTEMS: Denies rash, fever, chills, sweating, dizziness, drowsiness, blurred vision, sore throat, change in her weight. No shortness of breath at this time. No chest pain, palpitations, or cough. No nausea, vomiting, diarrhea, or blood in the stool or urine. No bowel or bladder incontinence. She is complaining of generalized body pain. SUBJECTIVE: Patient is in bed and has been tolerating the pain on the Percocet. She has no new complaints at this time. Objective Last 24 Hour Vital Signs Date Time Temp Pulse Resp B/P (MAP) Pulse Ox O2 Delivery O2 Flow Rate FiO2 08/15/18 08:26 67 153/70 08/15/18 08:25 67 153/70 08/15/18 08:00 97.9 67 18 153/70 (97) 97 08/15/18 06:13 129/57 08/15/18 06:13 129/57 08/15/18 04:00 97.9 64 18 133/52 (79) 100 08/15/18 04:00 65 08/15/18 00:00 63 08/15/18 00:00 98.7 62 18 128/65 (86) 99 08/14/18 21:39 63 18 Room Air 21 08/14/18 21:32 130/55 08/14/18 21:31 130/55 08/14/18 21:02 62 130/59 08/14/18 21:00 Room Air Room Air 08/14/18 20:00 98.1 62 18 130/59 (82) 98 08/14/18 20:00 62 08/14/18 16:00 60 14 120/50 (73) 100 08/14/18 16:00 59 08/14/18 13:40 132/51 08/14/18 13:40 132/51 08/14/18 12:00 62 14 132/51 (78) 97 08/14/18 12:00 60 08/14/18 09:00 Room Air Room Air Intake and Output 08/14/18 08/15/18 18:59 06:59 Intake Total 240 ml 460 ml Balance 240 ml 460 ml Intake Oral 240 ml 460 ml # Voids 4 # Bowel Movements 1 Laboratory Tests 08/15/18 06:45: White Blood Count 6.1#, Red Blood Count 2.85L, Hemoglobin 9.2L, Hematocrit 28.9L , Mean Corpuscular Volume 101H, Mean Corpuscular Hemoglobin 32.4H, Mean Corpuscular Hemoglobin Concent 32.0, Red Cell Distribution Width 13.8, Platelet Count 178, Mean Platelet Volume 7.5, Neutrophils (%) (Auto) 73.7, Lymphocytes (% ) (Auto) 15.7L, Monocytes (%) (Auto) 6.3, Eosinophils (%) (Auto) 3.7H, Basophils (%) (Auto) 0.7, Sodium Level 139, Potassium Level 4.4, Chloride Level 109H, Carbon Dioxide Level 19L, Anion Gap 11, Blood Urea Nitrogen 53H, Creatinine 3.3H, Estimat Glomerular Filtration Rate 17.6, Glucose Level 242H, Calcium Level 8.3L Height (Feet): 5 Height (Inches): 2.00 Weight (Pounds): 139 Objective GENERAL: Alert, awake, and oriented. LUNGS: Decreased breath sounds bilaterally. HEART: S1 and S2 regular. ABDOMEN: Benign. EXTREMITIES: No cyanosis. No clubbing. NEURO: No changes. Kwabena Verduzco Aug 15, 2018 08:45
--- NOTE | 2018-08-15 08:49 | Cardiology Report ---
APPROVED REPORT EXAM: Two-dimensional and M-mode echocardiogram with Doppler and color Doppler. M-Mode DIMENSIONS IVSd0.9 (0.7-1.1cm)Left Atrium (MM)4.3 (1.6-4.0cm) LVDd5.7 (3.5-5.6cm)Aortic Root2.8 (2.0-3.7cm) PWd0.9 (0.7-1.1cm)Aortic Cusp Exc.1.6 (1.5-2.0cm) IVSs1.4 cm LVDs4.0 (2.5-4.0cm) PWs1.1 cm Normal left ventricular chamber size, systolic function and wall motion . Left ventricular ejection fraction estimated to be 55%. Mild left ventricular hypertrophy by 2-D. No evidence of pericardial effusion. Left atrial size at upper limits of normal. Right cardiac chamber sizes are within normal limits. Aortic valve sclerosis with adequate cusp excursion. Thickened mitral valve leaflets with normal excursion. Mitral annulus and aortic root calcification. Pulmonic valve not well visualized. IVC at normal size with physiologic collapse. A color flow and spectral Doppler study was performed and revealed: Trace aortic regurgitation. Normal left ventricular diastolic function . Mild mitral regurgitation. Mild tricuspid regurgitation. Tricuspid systolic velocities suggests peak right ventricular systolic pressure of 44mmHg, consistent with mild pulmonary hypertension.
--- NOTE | 2018-08-15 09:21 | Nephrology Progress Note ---
Assessment/Plan Assessment 1.MICHELLE worsen 2.CKD 3.HTN 4.Acidosis 5.MILLA Plan PLAN repeat urine study Start bicitra 30 ml po bid check phos ,PTH monitoring renal function avoid NSAID Subjective Constitutional: Reports: no symptoms HEENT: Reports: no symptoms Genitourinary: Reports: no symptoms Neurologic/Psychiatric: Reports: no symptoms Subjective alert and awake no complaints Objective Objective Last 24 Hour Vital Signs Date Time Temp Pulse Resp B/P (MAP) Pulse Ox O2 Delivery O2 Flow Rate FiO2 08/15/18 08:26 67 153/70 08/15/18 08:25 67 153/70 08/15/18 08:00 97.9 67 18 153/70 (97) 97 08/15/18 06:13 129/57 08/15/18 06:13 129/57 08/15/18 04:00 97.9 64 18 133/52 (79) 100 08/15/18 04:00 65 08/15/18 00:00 63 08/15/18 00:00 98.7 62 18 128/65 (86) 99 08/14/18 21:39 63 18 Room Air 21 08/14/18 21:32 130/55 08/14/18 21:31 130/55 08/14/18 21:02 62 130/59 08/14/18 21:00 Room Air Room Air 08/14/18 20:00 98.1 62 18 130/59 (82) 98 08/14/18 20:00 62 08/14/18 16:00 60 14 120/50 (73) 100 08/14/18 16:00 59 08/14/18 13:40 132/51 08/14/18 13:40 132/51 08/14/18 12:00 62 14 132/51 (78) 97 08/14/18 12:00 60 Intake and Output 08/14/18 08/15/18 18:59 06:59 Intake Total 240 ml 460 ml Balance 240 ml 460 ml Intake Oral 240 ml 460 ml # Voids 4 # Bowel Movements 1 Laboratory Tests 08/15/18 06:45: White Blood Count 6.1#, Red Blood Count 2.85L, Hemoglobin 9.2L, Hematocrit 28.9L , Mean Corpuscular Volume 101H, Mean Corpuscular Hemoglobin 32.4H, Mean Corpuscular Hemoglobin Concent 32.0, Red Cell Distribution Width 13.8, Platelet Count 178, Mean Platelet Volume 7.5, Neutrophils (%) (Auto) 73.7, Lymphocytes (% ) (Auto) 15.7L, Monocytes (%) (Auto) 6.3, Eosinophils (%) (Auto) 3.7H, Basophils (%) (Auto) 0.7, Sodium Level 139, Potassium Level 4.4, Chloride Level 109H, Carbon Dioxide Level 19L, Anion Gap 11, Blood Urea Nitrogen 53H, Creatinine 3.3H, Estimat Glomerular Filtration Rate 17.6, Glucose Level 242H, Calcium Level 8.3L Height (Feet): 5 Height (Inches): 2.00 Weight (Pounds): 139 Objective HEAD AND NECK: No JVP. No LAD. No thyromegaly. Extraocular movement intact. Pupils are reactive to light and accommodation. LUNGS: Clear to auscultation. Decreased breathing sound on the both sides. CARDIAC: Regular rate and rhythm. S1 and S2. No murmur. No rub. ABDOMEN: Soft, nontender, and nondistended. EXTREMITIES: Have 1+ edema. No clubbing. No cyanosis. Nabila Park MD Aug 15, 2018 09:21
--- NOTE | 2018-08-15 10:36 | NUR ---
ST NOTE: CHART REVIEWED DISCUSSED WITH RN, PETER RE:PT'S CONDITIONS. PER RN, PT IS NOT FEELING GOOD, AND REFUSED PHYSICAL THERAPY. PT SEEN AT BEDSIDE IN AM. PT WITH NC(3L), PT WAS ABLE TO TAKE WHOLE PILLS WITH THIN LIQUIDS WITHOUT OVERT S/S OF ASPIRATION. PT REFUSED VIDEOSWALLOW STUDY WHEN ASKED. WILL D/C PT FROM SKILLED [facility] SERVICE. D/W RN AND THE STAFF.
[2018-08-15 12:08] VITALS: BP 138/53
--- NOTE | 2018-08-15 13:47 | Infectious Diseases Prog Note ---
Assessment/Plan Assessment/Plan A; Leukocytosis resolved Hypoxemia CHF CKD DM type 2 s/p CVA P: Observe off antibiotic Subjective ROS Limited/Unobtainable: Yes Constitutional: Reports: no symptoms Respiratory: Reports: shortness of breath Cardiovascular: Reports: dyspnea on exertion Gastrointestinal/Abdominal: Reports: no symptoms Genitourinary: Reports: other - decreased urine output Neurologic: Reports: no symptoms Musculoskeletal: Reports: pain Allergies: Coded Allergies: LISINOPRIL (Verified Allergy, Unknown, 07/16/18) LOSARTAN (Verified Allergy, Unknown, 07/16/18) Objective Vital Signs Last 24 Hour Vital Signs Date Time Temp Pulse Resp B/P (MAP) Pulse Ox O2 Delivery O2 Flow Rate FiO2 08/15/18 13:33 138/53 08/15/18 13:33 138/53 08/15/18 12:08 98.1 66 18 138/53 (81) 97 08/15/18 12:00 64 08/15/18 09:00 Room Air Room Air 08/15/18 08:26 67 153/70 08/15/18 08:25 67 153/70 08/15/18 08:00 97.9 67 18 153/70 (97) 97 08/15/18 08:00 67 08/15/18 06:13 129/57 08/15/18 06:13 129/57 08/15/18 04:00 97.9 64 18 133/52 (79) 100 08/15/18 04:00 65 08/15/18 00:00 63 08/15/18 00:00 98.7 62 18 128/65 (86) 99 08/14/18 21:39 63 18 Room Air 21 08/14/18 21:32 130/55 08/14/18 21:31 130/55 08/14/18 21:02 62 130/59 08/14/18 21:00 Room Air Room Air 08/14/18 20:00 98.1 62 18 130/59 (82) 98 08/14/18 20:00 62 08/14/18 16:00 60 14 120/50 (73) 100 08/14/18 16:00 59 Height (Feet): 5 Height (Inches): 2.00 Weight (Pounds): 139 HEENT: mucous membranes moist Respiratory/Chest: lungs clear Cardiovascular: normal rate Abdomen: soft, non tender Extremities: other - edema Neurologic/Psychiatric: alert, responsive Laboratory Tests Test 08/15/18 06:45 White Blood Count 6.1 K/UL (4.8-10.8) # Red Blood Count 2.85 M/UL (4.20-5.40) L Hemoglobin 9.2 G/DL (12.0-16.0) L Hematocrit 28.9 % (37.0-47.0) L Mean Corpuscular Volume 101 FL (80-99) H Mean Corpuscular Hemoglobin 32.4 PG (27.0-31.0) H Mean Corpuscular Hemoglobin Concent 32.0 G/DL (32.0-36.0) Red Cell Distribution Width 13.8 % (11.6-14.8) Platelet Count 178 K/UL (150-450) Mean Platelet Volume 7.5 FL (6.5-10.1) Neutrophils (%) (Auto) 73.7 % (45.0-75.0) Lymphocytes (%) (Auto) 15.7 % (20.0-45.0) L Monocytes (%) (Auto) 6.3 % (1.0-10.0) Eosinophils (%) (Auto) 3.7 % (0.0-3.0) H Basophils (%) (Auto) 0.7 % (0.0-2.0) Sodium Level 139 MMOL/L (136-145) Potassium Level 4.4 MMOL/L (3.5-5.1) Chloride Level 109 MMOL/L (98-107) H Carbon Dioxide Level 19 MMOL/L (21-32) L Anion Gap 11 mmol/L (5-15) Blood Urea Nitrogen 53 mg/dL (7-18) H Creatinine 3.3 MG/DL (0.55-1.30) H Estimat Glomerular Filtration Rate 17.6 mL/min (>60) Glucose Level 242 MG/DL (74-106) H Calcium Level 8.3 MG/DL (8.5-10.1) L Current Medications Medications (Trade) Dose Ordered Sig/Zara Route PRN Reason Start Time Stop Time Status Last Admin Dose Admin Acetaminophen (Tylenol) 650 mg Q4H PRN ORAL Mild Pain/Temp > 100.5 08/09/18 12:15 09/08/18 12:14 Amlodipine Besylate (Norvasc) 10 mg DAILY ORAL 08/10/18 09:00 09/09/18 08:59 08/15/18 08:26 Atorvastatin Calcium (Lipitor) 10 mg BEDTIME ORAL 08/09/18 21:00 09/08/18 20:59 08/14/18 21:01 Carvedilol (Coreg) 37.5 mg EVERY 12 HOURS ORAL 08/09/18 21:00 09/08/18 20:59 08/15/18 08:25 Clonidine HCl (Catapres Tab) 0.1 mg EVERY 8 HOURS ORAL 08/10/18 22:00 09/09/18 21:59 08/15/18 13:33 Clopidogrel Bisulfate (Plavix) 75 mg DAILY ORAL 08/10/18 09:00 09/09/18 08:59 08/15/18 08:25 Epoetin Yordan (Procrit (for non ESRD use)) 5,000 units TUE-TUE-TUE SUBQ 08/11/18 21:00 09/10/18 20:59 08/14/18 21:31 Gabapentin (Neurontin) 300 mg Q12HR ORAL 08/09/18 21:00 09/08/18 20:59 08/15/18 08:26 Heparin Sodium (Porcine) (Heparin 5000 units/ml) 5,000 units EVERY 12 HOURS SUBQ 08/09/18 21:00 09/08/18 20:59 08/15/18 08:28 Hydralazine HCl (Apresoline) 100 mg Q8HR ORAL 08/10/18 14:00 09/09/18 13:59 08/15/18 13:33 Minoxidil (Loniten) 2.5 mg Q4H PRN ORAL sbp> 165 08/09/18 12:15 09/08/18 12:14 08/11/18 00:00 Mirtazapine (Remeron) 7.5 mg BEDTIME ORAL 08/09/18 21:00 09/08/18 20:59 08/14/18 21:01 Nateglinide (Starlix) 120 mg TIAC ORAL 08/09/18 16:30 09/08/18 16:29 08/15/18 10:58 Ondansetron HCl (Zofran) 4 mg Q6H PRN IVP Nausea & Vomiting 08/09/18 12:15 09/08/18 12:14 Oxycodone/ Acetaminophen (Percocet 10/325) 1 tab Q4H PRN ORAL moderate-severe (4-10) pain 08/15/18 08:55 08/22/18 08:54 08/15/18 09:41 Pantoprazole (Protonix) 40 mg DAILY ORAL 08/10/18 09:00 09/09/18 08:59 08/15/18 08:26 Polyethylene Glycol (Miralax) 17 gm DAILYPRN PRN ORAL Constipation 08/09/18 12:15 09/08/18 12:14 Sodium Citrate (Bicitra) 30 ml BID ORAL 08/11/18 18:00 09/10/18 17:59 08/15/18 08:30 Trazodone HCl (Desyrel) 50 mg BEDTIME ORAL 08/09/18 21:00 09/08/18 20:59 08/14/18 21:01 Jt Rizvi MD Aug 15, 2018 13:47
--- NOTE | 2018-08-15 15:38 | General Progress Note ---
Assessment/Plan Problem List: (1) Acute on chronic renal failure ICD Codes: N17.9 - Acute kidney failure, unspecified; N18.9 - Chronic kidney disease, unspecified SNOMED: 947389570 Qualifiers: Qualified Codes: N17.9 - Acute kidney failure, unspecified; N18.9 - Chronic kidney disease, unspecified (2) Anemia ICD Codes: D64.9 - Anemia, unspecified SNOMED: 801880757 (3) Hypertension ICD Codes: I10 - Essential (primary) hypertension SNOMED: 98517087 (4) Diabetes mellitus ICD Codes: E11.9 - Type 2 diabetes mellitus without complications SNOMED: 23811593 Status: stable, progressing Assessment/Plan pulm tx prn bp bs control cbc bmp amn dc plan wn hh Subjective Constitutional: Reports: weakness Allergies: Coded Allergies: LISINOPRIL (Verified Allergy, Unknown, 07/16/18) LOSARTAN (Verified Allergy, Unknown, 07/16/18) All Systems: reviewed and negative except above Subjective o2nc calm in bed sl sob Objective Last 24 Hour Vital Signs Date Time Temp Pulse Resp B/P (MAP) Pulse Ox O2 Delivery O2 Flow Rate FiO2 08/15/18 13:33 138/53 08/15/18 13:33 138/53 08/15/18 12:08 98.1 66 18 138/53 (81) 97 08/15/18 12:00 64 08/15/18 09:00 Room Air Room Air 08/15/18 08:26 67 153/70 08/15/18 08:25 67 153/70 08/15/18 08:00 97.9 67 18 153/70 (97) 97 08/15/18 08:00 67 08/15/18 06:13 129/57 08/15/18 06:13 129/57 08/15/18 04:00 97.9 64 18 133/52 (79) 100 08/15/18 04:00 65 08/15/18 00:00 63 08/15/18 00:00 98.7 62 18 128/65 (86) 99 08/14/18 21:39 63 18 Room Air 21 08/14/18 21:32 130/55 08/14/18 21:31 130/55 08/14/18 21:02 62 130/59 08/14/18 21:00 Room Air Room Air 08/14/18 20:00 98.1 62 18 130/59 (82) 98 08/14/18 20:00 62 08/14/18 16:00 60 14 120/50 (73) 100 08/14/18 16:00 59 Intake and Output 08/14/18 08/15/18 19:00 07:00 Intake Total 240 ml 460 ml Balance 240 ml 460 ml Intake Oral 240 ml 460 ml # Voids 4 # Bowel Movements 1 Laboratory Tests 08/15/18 06:45: White Blood Count 6.1#, Red Blood Count 2.85L, Hemoglobin 9.2L, Hematocrit 28.9L , Mean Corpuscular Volume 101H, Mean Corpuscular Hemoglobin 32.4H, Mean Corpuscular Hemoglobin Concent 32.0, Red Cell Distribution Width 13.8, Platelet Count 178, Mean Platelet Volume 7.5, Neutrophils (%) (Auto) 73.7, Lymphocytes (% ) (Auto) 15.7L, Monocytes (%) (Auto) 6.3, Eosinophils (%) (Auto) 3.7H, Basophils (%) (Auto) 0.7, Sodium Level 139, Potassium Level 4.4, Chloride Level 109H, Carbon Dioxide Level 19L, Anion Gap 11, Blood Urea Nitrogen 53H, Creatinine 3.3H, Estimat Glomerular Filtration Rate 17.6, Glucose Level 242H, Calcium Level 8.3L Height (Feet): 5 Height (Inches): 2.00 Weight (Pounds): 139 General Appearance: lethargic EENT: normal ENT inspection Neck: normal alignment Cardiovascular: normal peripheral pulses, normal rate, regular rhythm Respiratory/Chest: chest wall non-tender, decreased breath sounds Abdomen: normal bowel sounds, non tender, soft Extremities: normal inspection Edema: 1+ Arm (L), 1+ Arm (R), 1+ Leg (L), 1+ Leg (R), 1+ Pedal (L), 1+ Pedal ( R), 1+ Generalized Edema: trace edema Neurologic: responsive, motor weakness Skin: normal pigmentation, warm/dry Naun Geiger DO Aug 15, 2018 15:38
[2018-08-15] MEDS ORDERED: Albuterol/Ipratropium 3ml neb HHN PRN (16:00)
--- NOTE | 2018-08-15 16:03 | Pulmonology Progress Note ---
Assessment/Plan Assessment/Plan ASSESSMENT: The patient is a 53-year-old female, history of solitary kidney, CKD stage 4, hypertension, hyperlipidemia, prior admission with pleural effusions likely congestive heart failure, and anemia presenting with shortness of breath likely decompensated heart failure. The patient does not clinically appear infected, is afebrile, has only a mild leukocytosis. She is being treated for possible pneumonia with Rocephin under the care of the Infectious Disease service. PROBLEM LIST: 1. Mild hypoxemia. 2. Questionable history of asthma. 3. CHF with DD 4. Prior CT scan 07/19/2018 with evidence of mediastinal, hilar, and axillary lymphadenopathy. 5. History of transudative pleural effusion. 6. Pulmonary hypertension. 7. CKD. 8. Edema. 9. Prior CVA. 10. Elevated RF with neg CCP TREATMENT PLAN: LIMITED PH WORK UP: CHIDI, VQ, SEROLOGIES NOTE, repeat ABG Consideration for RHC, would be very helpful in determining PA pressure and volume management Monitor volumes and renal function, F/U renal recs, consider diuresis Optimize pulmonary hygiene/mobilize as tolerated. Titrate FiO2 to keep saturations greater than 90%. PRN bronchodilators. CT chest with minimal GGO's and non-specific LAD --> REPEAT PLEURAL FLUID CYTOLOGY SHORT INTERVAL REPEAT IMAGING AN OUTPATIENT WITH CONSIDERATION OF EBUS VS MEDIASTINOSCOPY Observe off Antibiotics per ID. Aspiration precautions. [employer] recs, VSS (refused) DVT prophylaxis heparin subcutaneous. The patient should have outpatient pulmonary workup including full PFTs and PSG Subjective Allergies: Coded Allergies: LISINOPRIL (Verified Allergy, Unknown, 07/16/18) LOSARTAN (Verified Allergy, Unknown, 07/16/18) Subjective AFVSS on RA Refused HHN No SOB + QUIROGA with minimal activity no cough no CP no F/C Objective Last 24 Hour Vital Signs Date Time Temp Pulse Resp B/P (MAP) Pulse Ox O2 Delivery O2 Flow Rate FiO2 08/15/18 13:33 138/53 08/15/18 13:33 138/53 08/15/18 12:08 98.1 66 18 138/53 (81) 97 08/15/18 12:00 64 08/15/18 09:00 Room Air Room Air 08/15/18 08:26 67 153/70 08/15/18 08:25 67 153/70 08/15/18 08:00 97.9 67 18 153/70 (97) 97 08/15/18 08:00 67 08/15/18 06:13 129/57 08/15/18 06:13 129/57 08/15/18 04:00 97.9 64 18 133/52 (79) 100 08/15/18 04:00 65 08/15/18 00:00 63 08/15/18 00:00 98.7 62 18 128/65 (86) 99 08/14/18 21:39 63 18 Room Air 21 08/14/18 21:32 130/55 08/14/18 21:31 130/55 08/14/18 21:02 62 130/59 08/14/18 21:00 Room Air Room Air 08/14/18 20:00 98.1 62 18 130/59 (82) 98 08/14/18 20:00 62 08/14/18 16:00 60 14 120/50 (73) 100 08/14/18 16:00 59 Intake and Output 08/14/18 08/15/18 19:00 07:00 Intake Total 240 ml 460 ml Balance 240 ml 460 ml Intake Oral 240 ml 460 ml # Voids 4 # Bowel Movements 1 General Appearance: WD/WN, no acute distress HEENT: normocephalic, atraumatic, anicteric, mucous membranes moist Respiratory/Chest: chest wall non-tender, lungs clear, normal breath sounds, no respiratory distress, no accessory muscle use Cardiovascular: normal peripheral pulses, normal rate, regular rhythm Abdomen: normal bowel sounds, soft, non tender, no organomegaly, non distended Extremities: no cyanosis, no clubbing, no edema Laboratory Tests 08/15/18 06:45: White Blood Count 6.1#, Red Blood Count 2.85L, Hemoglobin 9.2L, Hematocrit 28.9L , Mean Corpuscular Volume 101H, Mean Corpuscular Hemoglobin 32.4H, Mean Corpuscular Hemoglobin Concent 32.0, Red Cell Distribution Width 13.8, Platelet Count 178, Mean Platelet Volume 7.5, Neutrophils (%) (Auto) 73.7, Lymphocytes (% ) (Auto) 15.7L, Monocytes (%) (Auto) 6.3, Eosinophils (%) (Auto) 3.7H, Basophils (%) (Auto) 0.7, Sodium Level 139, Potassium Level 4.4, Chloride Level 109H, Carbon Dioxide Level 19L, Anion Gap 11, Blood Urea Nitrogen 53H, Creatinine 3.3H, Estimat Glomerular Filtration Rate 17.6, Glucose Level 242H, Calcium Level 8.3L Current Medications Medications (Trade) Dose Ordered Sig/Zara Route PRN Reason Start Time Stop Time Status Last Admin Dose Admin Acetaminophen (Tylenol) 650 mg Q4H PRN ORAL Mild Pain/Temp > 100.5 08/09/18 12:15 09/08/18 12:14 Amlodipine Besylate (Norvasc) 10 mg DAILY ORAL 08/10/18 09:00 09/09/18 08:59 08/15/18 08:26 Atorvastatin Calcium (Lipitor) 10 mg BEDTIME ORAL 08/09/18 21:00 09/08/18 20:59 08/14/18 21:01 Carvedilol (Coreg) 37.5 mg EVERY 12 HOURS ORAL 08/09/18 21:00 09/08/18 20:59 08/15/18 08:25 Clonidine HCl (Catapres Tab) 0.1 mg EVERY 8 HOURS ORAL 08/10/18 22:00 09/09/18 21:59 08/15/18 13:33 Clopidogrel Bisulfate (Plavix) 75 mg DAILY ORAL 08/10/18 09:00 09/09/18 08:59 08/15/18 08:25 Epoetin Yordan (Procrit (for non ESRD use)) 5,000 units TUE-TUE-TUE SUBQ 08/11/18 21:00 09/10/18 20:59 08/14/18 21:31 Gabapentin (Neurontin) 300 mg Q12HR ORAL 08/09/18 21:00 09/08/18 20:59 08/15/18 08:26 Heparin Sodium (Porcine) (Heparin 5000 units/ml) 5,000 units EVERY 12 HOURS SUBQ 08/09/18 21:00 09/08/18 20:59 08/15/18 08:28 Hydralazine HCl (Apresoline) 100 mg Q8HR ORAL 08/10/18 14:00 09/09/18 13:59 08/15/18 13:33 Minoxidil (Loniten) 2.5 mg Q4H PRN ORAL sbp> 165 08/09/18 12:15 2/1/19 12:14 08/11/18 00:00 Mirtazapine (Remeron) 7.5 mg BEDTIME ORAL 08/09/18 21:00 09/08/18 20:59 08/14/18 21:01 Nateglinide (Starlix) 120 mg TIAC ORAL 08/09/18 16:30 09/08/18 16:29 08/15/18 15:54 Ondansetron HCl (Zofran) 4 mg Q6H PRN IVP Nausea & Vomiting 08/09/18 12:15 09/08/18 12:14 Oxycodone/ Acetaminophen (Percocet 10/325) 1 tab Q4H PRN ORAL moderate-severe (4-10) pain 08/15/18 08:55 08/22/18 08:54 08/15/18 15:55 Pantoprazole (Protonix) 40 mg DAILY ORAL 08/10/18 09:00 09/09/18 08:59 08/15/18 08:26 Polyethylene Glycol (Miralax) 17 gm DAILYPRN PRN ORAL Constipation 08/09/18 12:15 09/08/18 12:14 Sodium Citrate (Bicitra) 30 ml BID ORAL 08/11/18 18:00 09/10/18 17:59 08/15/18 08:30 Trazodone HCl (Desyrel) 50 mg BEDTIME ORAL 08/09/18 21:00 09/08/18 20:59 08/14/18 21:01 Kevin Gutiérrez MD Aug 15, 2018 16:03
--- NOTE | 2018-08-15 16:16 | General Progress Note ---
Assessment/Plan Assessment/Plan #. Anemia of chronic disease -- patient with ongoing kidney damage, cr is elevated approx 2-2.5 baseline --> anemia panel has been ordered and tsh, ferritin, tibc, esr, b12, folate, fibrinogen, iron % reviewed --> appreciate nephrology consult --> continue on epogen --> transfuse if hgb is <7 --> hemolysis w/u has been reviewed --> trend hgb 8.9-->8.4-->8.5-->10.7-->9 --> ON EPO SQ AND IRON IV # Leukopenia wbc in the 4-6 range --> hepatitis panel negative, hiv neg --> us abd shows borderline spleen enlargement # Acute versus chronic renal failure. as per renal etiology of acute renal failure is cardiorenal syndrome, prerenal azotemia versus unstable --> bp to improve on current meds --> nephro recs appreciated #. Coagulopathy with elevated inr --> recheck in future prn, now improved #. Congestive heart failure, but at this point the patient seems to be euvolemic. --> as per cardiology #. 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 #. Uncontrolled hypertension. --> now better #. Pleural eff s/p thora Greatly appreciate consultation Subjective ROS Limited/Unobtainable: No Constitutional: Denies: no symptoms, chills, diaphoresis, fever, malaise, weakness, other HEENT: Denies: no symptoms, eye pain, blurred vision, tearing, double vision, ear pain, ear discharge, nose pain, nose congestion, throat pain, throat swelling, mouth pain, mouth swelling, other Cardiovascular: Denies: no symptoms, chest pain, edema, irregular heart rate, lightheadedness, palpitations, syncope, other Respiratory: Denies: no symptoms, cough, orthopnea, shortness of breath, SOB with excertion, SOB at rest, sputum, stridor, wheezing, other Gastrointestinal/Abdominal: Denies: no symptoms, abdomen distended, abdominal pain, black stools, tarry stools, blood in stool, constipated, diarrhea, difficulty swallowing, nausea, poor appetite, poor fluid intake, rectal bleeding , vomiting, other Genitourinary: Denies: no symptoms, burning, discharge, frequency, flank pain, hematuria, incontinence, pain, urgency, other Neurologic/Psychiatric: Denies: no symptoms, anxiety, depressed, emotional problems, headache, numbness, paresthesia, pre-existing deficit, seizure, tingling, tremors, weakness, other Endocrine: Denies: no symptoms, excessive sweating, flushing, intolerance to cold, intolerance to heat, increased hunger, increased thirst, increased urine, unexplained weight gain, unexplained weight loss, other Allergies: Coded Allergies: LISINOPRIL (Verified Allergy, Unknown, 07/16/18) LOSARTAN (Verified Allergy, Unknown, 07/16/18) Subjective 08/11/18: Pt is awake and resting in bed, denies acute distress, no events reported, cbc reviewed. 08/12/18: Pt is seen in the room, resting in bed, watching T.V, leukocytosis resolved,on desk monitor 08/13/18:Pt is seen in the room, resting in bed, Aox3. plt 170 today, no events reported 08/14/18: no events overnight, no major changes noted, cr is higher 08/15/18: Pt is awake and calm, no major events , hgh remains low at 9 Objective Last 24 Hour Vital Signs Date Time Temp Pulse Resp B/P (MAP) Pulse Ox O2 Delivery O2 Flow Rate FiO2 08/15/18 13:33 138/53 08/15/18 13:33 138/53 08/15/18 12:08 98.1 66 18 138/53 (81) 97 08/15/18 12:00 64 08/15/18 09:00 Room Air Room Air 08/15/18 08:26 67 153/70 08/15/18 08:25 67 153/70 08/15/18 08:00 97.9 67 18 153/70 (97) 97 08/15/18 08:00 67 08/15/18 08:00 66 18 Room Air 21 08/15/18 06:13 129/57 08/15/18 06:13 129/57 08/15/18 04:00 97.9 64 18 133/52 (79) 100 08/15/18 04:00 65 08/15/18 00:00 63 08/15/18 00:00 98.7 62 18 128/65 (86) 99 08/14/18 21:39 63 18 Room Air 21 08/14/18 21:32 130/55 08/14/18 21:31 130/55 08/14/18 21:02 62 130/59 08/14/18 21:00 Room Air Room Air 08/14/18 20:00 98.1 62 18 130/59 (82) 98 08/14/18 20:00 62 Intake and Output 08/14/18 08/15/18 19:00 07:00 Intake Total 240 ml 460 ml Balance 240 ml 460 ml Intake Oral 240 ml 460 ml # Voids 4 # Bowel Movements 1 Laboratory Tests 08/15/18 06:45: White Blood Count 6.1#, Red Blood Count 2.85L, Hemoglobin 9.2L, Hematocrit 28.9L , Mean Corpuscular Volume 101H, Mean Corpuscular Hemoglobin 32.4H, Mean Corpuscular Hemoglobin Concent 32.0, Red Cell Distribution Width 13.8, Platelet Count 178, Mean Platelet Volume 7.5, Neutrophils (%) (Auto) 73.7, Lymphocytes (% ) (Auto) 15.7L, Monocytes (%) (Auto) 6.3, Eosinophils (%) (Auto) 3.7H, Basophils (%) (Auto) 0.7, Sodium Level 139, Potassium Level 4.4, Chloride Level 109H, Carbon Dioxide Level 19L, Anion Gap 11, Blood Urea Nitrogen 53H, Creatinine 3.3H, Estimat Glomerular Filtration Rate 17.6, Glucose Level 242H, Calcium Level 8.3L Height (Feet): 5 Height (Inches): 2.00 Weight (Pounds): 139 Objective VITAL SIGNS: have been reviewed and are otherwise stable HEAD AND NECK: No JVP. No LAD. No thyromegaly. Extraocular movements intact. Pupils are reactive to light and accommodation. LUNGS: Decreased breathing sounds on both sides. CARDIAC: Regular rate and rhythm. S1-S2. No murmur. No rub. ABDOMEN: Soft, nontender, and nondistended. EXTREMITIES: 1+ edema. No clubbing. No cyanosis. Amandeep Howell MD Aug 15, 2018 16:16
[2018-08-15 16:37] VITALS: BP 119/50
--- NOTE | 2018-08-15 16:52 | NUR ---
NURSE NOTES: signed consent for thoracentesis is in patient chart.
--- NOTE | 2018-08-15 18:51 | NUR ---
HAND-OFF: Report given to JENNIFER Wayne. Plan of care endorsed.
--- NOTE | 2018-08-15 19:10 | NUR ---
NURSE NOTES: Received report from JENNIFER Shipman. Awake, alert and verbally responsive. No SOB, no acute distress, denies any pain nor any discomfort at this time. IV site on R FA #20, patent and intact. Bed at lowest position, call light within reach. Will continue plan of care.
[2018-08-15 20:00] VITALS: BP 152/81
[2018-08-15] MEDS: TraZODone 50mg tab ORAL SCH (20:50)
--- NOTE | 2018-08-15 23:58 | Cardiology Progress Note ---
Assessment/Plan Assessment/Plan 1. Accelerated hypertension, well controlled, continue hydralazine, carvedilol, amlodipine and clonidine. 2. Dyspnea most likely secondary to bilateral pleural effusion, status post right thoracentesis yielding about 500 mL of fluid. 2D echocardiography July 17, 2018 showed normal LV systolic and diastolic function with LVEF of approximately 55%. Continue IV antibiotics, pulmonary toilet, and diuretic therapy. 3. Moderate pulmonary hypertension. 4. Stage 5 CKD with small pericardial effusion. 5. Anemia, possible chronic kidney disease. 6. History of CVA with left hemiparesis, consider aspirin and statins. Subjective Subjective Sinus rhythm at rate of 63. On room air. Objective Last 24 Hour Vital Signs Date Time Temp Pulse Resp B/P (MAP) Pulse Ox O2 Delivery O2 Flow Rate FiO2 08/15/18 22:03 134/54 08/15/18 22:03 134/54 08/15/18 21:00 Room Air Room Air 08/15/18 20:51 63 152/81 08/15/18 20:00 63 08/15/18 20:00 98.4 63 24 152/81 (104) 99 08/15/18 16:37 97.3 62 18 119/50 (73) 100 08/15/18 16:00 62 08/15/18 13:33 138/53 08/15/18 13:33 138/53 08/15/18 12:08 98.1 66 18 138/53 (81) 97 08/15/18 12:00 64 08/15/18 09:00 Room Air Room Air 08/15/18 08:26 67 153/70 08/15/18 08:25 67 153/70 08/15/18 08:00 97.9 67 18 153/70 (97) 97 08/15/18 08:00 67 08/15/18 08:00 66 18 Room Air 21 08/15/18 06:13 129/57 08/15/18 06:13 129/57 08/15/18 04:00 97.9 64 18 133/52 (79) 100 08/15/18 04:00 65 08/15/18 00:00 63 08/15/18 00:00 98.7 62 18 128/65 (86) 99 Intake and Output 08/14/18 08/15/18 19:00 07:00 Intake Total 240 ml 460 ml Balance 240 ml 460 ml Intake Oral 240 ml 460 ml # Voids 4 # Bowel Movements 1 2D Echo: LVEF 65%, Mild MR, Normal LVD, RVSP 56mmHg Laboratory Tests Test 08/15/18 06:45 08/15/18 15:59 White Blood Count 6.1 K/UL (4.8-10.8) # Red Blood Count 2.85 M/UL (4.20-5.40) L Hemoglobin 9.2 G/DL (12.0-16.0) L Hematocrit 28.9 % (37.0-47.0) L Mean Corpuscular Volume 101 FL (80-99) H Mean Corpuscular Hemoglobin 32.4 PG (27.0-31.0) H Mean Corpuscular Hemoglobin Concent 32.0 G/DL (32.0-36.0) Red Cell Distribution Width 13.8 % (11.6-14.8) Platelet Count 178 K/UL (150-450) Mean Platelet Volume 7.5 FL (6.5-10.1) Neutrophils (%) (Auto) 73.7 % (45.0-75.0) Lymphocytes (%) (Auto) 15.7 % (20.0-45.0) L Monocytes (%) (Auto) 6.3 % (1.0-10.0) Eosinophils (%) (Auto) 3.7 % (0.0-3.0) H Basophils (%) (Auto) 0.7 % (0.0-2.0) Sodium Level 139 MMOL/L (136-145) Potassium Level 4.4 MMOL/L (3.5-5.1) Chloride Level 109 MMOL/L (98-107) H Carbon Dioxide Level 19 MMOL/L (21-32) L Anion Gap 11 mmol/L (5-15) Blood Urea Nitrogen 53 mg/dL (7-18) H Creatinine 3.3 MG/DL (0.55-1.30) H Estimat Glomerular Filtration Rate 17.6 mL/min (>60) Glucose Level 242 MG/DL (74-106) H Calcium Level 8.3 MG/DL (8.5-10.1) L Arterial Blood pH 7.270 (7.350-7.450) Arterial Blood Partial Pressure CO2 36.8 mmHg (35.0-45.0) Arterial Blood Partial Pressure O2 135.8 mmHg (75.0-100.0) H Arterial Blood HCO3 16.5 mmol/L (22.0-26.0) *L Arterial Blood Oxygen Saturation 98.2 % (95-100) Arterial Blood Base Excess -9.6 (-2-2) *L Patrick Test Positive Objective HEENT: Atraumatic and normocephalic. Anicteric. Pupils are equal, round, and reactive to light and accommodation. Extraocular muscles intact. Poor dentition. NECK: JVP less than 5 cm. No carotid bruit. Carotid upstrokes 2+ bilaterally. LUNGS: Bilateral lower lung crackles. Diminished breath sounds on both lungs and the bases. CARDIOVASCULAR: Normal S1, S2. Regular rate and rhythm. No murmurs, gallops, or rubs. ABDOMEN: Soft, nontender, and nondistended. No hepatosplenomegaly. Positive bowel sounds. EXTREMITIES: No evidence of edema, clubbing, or cyanosis. Kwesi Zee MD Aug 15, 2018 23:58
[2018-08-16] VITALS: BP 147/83
--- NOTE | 2018-08-16 03:38 | NUR ---
NURSE NOTES: Patient asleep, breathing even and unlabored, no s/sx of pain nor any discomfort at this time. Bed at lowest position, call light within reach. Will continue to monitor.
[2018-08-16 04:00] VITALS: BP 144/78
[2018-08-16] MEDS: HydrALAZINE 50mg tab ORAL SCH ×3 (05:58→21:24)
--- NOTE | 2018-08-16 07:02 | NUR ---
HAND-OFF: Report given to JENNIFER Shipman. Endorsed plan of care.
--- NOTE | 2018-08-16 07:35 | General Progress Note ---
Assessment/Plan Assessment/Plan #. Anemia of chronic disease - patient with ongoing kidney damage, cr is elevated approx 2-2.5 baseline --> anemia panel has reviewed, ferritin 222, has minimal iron depletion --> appreciate nephrology consult --> continue on epogen --> transfuse if hgb is <7 --> hemolysis w/u has been reviewed --> trend hgb 8.9-->8.4-->8.5-->10.7-->9 --> ON EPO SQ AND IRON IV # Leukopenia wbc in the 4-6 range --> hepatitis panel negative, hiv neg --> us abd shows borderline spleen enlargement # Acute versus chronic renal failure. as per renal etiology of acute renal failure is cardiorenal syndrome, prerenal azotemia versus unstable --> bp to improve on current meds --> nephro recs appreciated #. Coagulopathy with elevated inr --> recheck in future prn, now improved #. Congestive heart failure, but at this point the patient seems to be euvolemic. --> as per cardiology #. 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 #. Uncontrolled hypertension. --> now better #. Pleural eff s/p thora Greatly appreciate consultation Subjective Constitutional: Denies: no symptoms, chills, diaphoresis, fever, malaise, weakness, other Cardiovascular: Denies: no symptoms, chest pain, edema, irregular heart rate, lightheadedness, palpitations, syncope, other Gastrointestinal/Abdominal: Denies: no symptoms, abdomen distended, abdominal pain, black stools, tarry stools, blood in stool, constipated, diarrhea, difficulty swallowing, nausea, poor appetite, poor fluid intake, rectal bleeding , vomiting, other Neurologic/Psychiatric: Denies: no symptoms, anxiety, depressed, emotional problems, headache, numbness, paresthesia, pre-existing deficit, seizure, tingling, tremors, weakness, other Endocrine: Denies: no symptoms, excessive sweating, flushing, intolerance to cold, intolerance to heat, increased hunger, increased thirst, increased urine, unexplained weight gain, unexplained weight loss, other Allergies: Coded Allergies: LISINOPRIL (Verified Allergy, Unknown, 07/16/18) LOSARTAN (Verified Allergy, Unknown, 07/16/18) Subjective 08/11/18: Pt is awake and resting in bed, denies acute distress, no events reported, cbc reviewed. 08/12/18: Pt is seen in the room, resting in bed, watching T.V, leukocytosis resolved,on compliance monitor 08/13/18:Pt is seen in the room, resting in bed, Aox3. plt 170 today, no events reported 08/14/18: no events overnight, no major changes noted, cr is higher 08/15/18: Pt is awake and calm, no major events , hgh remains low at 9 08/16: no events noted, h/h remains relatively stable, a+o x3, cbc reviewed Objective Last 24 Hour Vital Signs Date Time Temp Pulse Resp B/P (MAP) Pulse Ox O2 Delivery O2 Flow Rate FiO2 08/16/18 05:58 134/53 08/16/18 05:58 134/53 08/16/18 04:00 72 08/16/18 04:00 98.0 60 24 144/78 (100) 99 08/16/18 00:00 67 08/16/18 00:00 97.9 61 24 147/83 (104) 99 08/15/18 22:03 134/54 08/15/18 22:03 134/54 08/15/18 21:00 Room Air Room Air 08/15/18 20:52 64 18 Room Air 21 08/15/18 20:51 63 152/81 08/15/18 20:00 63 08/15/18 20:00 98.4 63 24 152/81 (104) 99 08/15/18 16:37 97.3 62 18 119/50 (73) 100 08/15/18 16:00 62 08/15/18 13:33 138/53 08/15/18 13:33 138/53 08/15/18 12:08 98.1 66 18 138/53 (81) 97 08/15/18 12:00 64 08/15/18 09:00 Room Air Room Air 08/15/18 08:26 67 153/70 08/15/18 08:25 67 153/70 08/15/18 08:00 97.9 67 18 153/70 (97) 97 08/15/18 08:00 67 08/15/18 08:00 66 18 Room Air 21 Intake and Output 08/15/18 08/16/18 18:59 06:59 Intake Total 420 ml 360 ml Balance 420 ml 360 ml Intake Oral 420 ml 360 ml # Voids 1 Laboratory Tests 08/15/18 15:59: Arterial Blood pH 7.270L, Arterial Blood Partial Pressure CO2 36.8, Arterial Blood Partial Pressure O2 135.8H, Arterial Blood HCO3 16.5*L, Arterial Blood Oxygen Saturation 98.2, Arterial Blood Base Excess -9.6*L, Patrick Test Positive Height (Feet): 5 Height (Inches): 2.00 Weight (Pounds): 165 Objective VITAL SIGNS: have been reviewed and are otherwise stable HEAD AND NECK: No JVP. No LAD. No thyromegaly. Extraocular movements intact. perrl LUNGS: Decreased breathing sounds on both sides. CARDIAC: Regular rate and rhythm. S1-S2. No murmur. No rub. ABDOMEN: Soft, nontender, and nondistended. EXTREMITIES: 1+ edema. No clubbing. No cyanosis. Amandeep Howell MD Aug 16, 2018 07:35
--- NOTE | 2018-08-16 07:41 | NUR ---
NURSE NOTES: Received report from JENNIFER Wayne. Pt is resting in bed. No distress noted. Bed is in lowest position, side rails up X2, and call light is within reach. Will continue to monitor.
[2018-08-16 08:00] VITALS: BP 140/63
[2018-08-16 08:23] LABS: BASOPHILS % (AUTO) 0.8 % (0.0-2.0); EOSINOPHILS % (AUTO) 2.1 % (0.0-3.0); HEMATOCRIT 28.7 % (37.0-47.0); HEMOGLOBIN 9.1 G/DL (12.0-16.0); LYMPHOCYTES % (AUTO) 11.4 % (20.0-45.0); MEAN CORPUSCULAR VOLUME 102 FL (80-99); MONOCYTES % (AUTO) 4.8 % (1.0-10.0); PLATELET COUNT 169 K/UL (150-450); RED CELL DISTRIBUTION WIDTH 13.9 % (11.6-14.8); WHITE BLOOD COUNT 9.1 K/UL (4.8-10.8)
[2018-08-16] MEDS: Carvedilol 12.5mg tab ORAL SCH ×3 (08:31→21:25)
[2018-08-16] MEDS: Sodium Citrate 30ml ORAL SCH ×2 (08:34→17:42)
[2018-08-16] MEDS: Heparin 5000 units/ml inj SUBQ SCH ×2 (08:39→21:26)
--- NOTE | 2018-08-16 08:45 | NUR ---
NURSE NOTES: patient is refusing VQ scan. Dr. Gutiérrez aware. Will cancel procedure.
[2018-08-16 08:52] LABS: ANION GAP 10 mmol/L (5-15); BLOOD UREA NITROGEN 53 mg/dL (7-18); CALCIUM 8.1 MG/DL (8.5-10.1); CARBON DIOXIDE 19 MMOL/L (21-32); CHLORIDE 108 MMOL/L (98-107); CREATININE 3.6 MG/DL (0.55-1.30); POTASSIUM 4.9 MMOL/L (3.5-5.1); SODIUM 137 MMOL/L (136-145)
--- NOTE | 2018-08-16 09:01 | General Progress Note ---
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 D/w Dr. Hagen and he concurred. Subjective Date patient seen: Aug 16, 2018 Time patient seen: 08:30 - am Allergies: Coded Allergies: LISINOPRIL (Verified Allergy, Unknown, 07/16/18) LOSARTAN (Verified Allergy, Unknown, 07/16/18) Subjective REVIEW OF SYSTEMS: Denies rash, fever, chills, sweating, dizziness, drowsiness, blurred vision, sore throat, change in her weight. No shortness of breath at this time. No chest pain, palpitations, or cough. No nausea, vomiting, diarrhea, or blood in the stool or urine. No bowel or bladder incontinence. She is complaining of generalized body pain. SUBJECTIVE: Patient is in bed reports pain has been at a moderate level on the Percocet. She has no new complaints at this time. Objective Last 24 Hour Vital Signs Date Time Temp Pulse Resp B/P (MAP) Pulse Ox O2 Delivery O2 Flow Rate FiO2 08/16/18 08:34 62 140/63 08/16/18 08:34 62 140/63 08/16/18 08:31 62 140/63 08/16/18 05:58 134/53 08/16/18 05:58 134/53 08/16/18 04:00 72 08/16/18 04:00 98.0 60 24 144/78 (100) 99 08/16/18 00:00 67 08/16/18 00:00 97.9 61 24 147/83 (104) 99 08/15/18 22:03 134/54 08/15/18 22:03 134/54 08/15/18 21:00 Room Air Room Air 08/15/18 20:52 64 18 Room Air 21 08/15/18 20:51 63 152/81 08/15/18 20:00 63 08/15/18 20:00 98.4 63 24 152/81 (104) 99 08/15/18 16:37 97.3 62 18 119/50 (73) 100 08/15/18 16:00 62 08/15/18 13:33 138/53 08/15/18 13:33 138/53 08/15/18 12:08 98.1 66 18 138/53 (81) 97 08/15/18 12:00 64 Intake and Output 08/15/18 08/16/18 18:59 06:59 Intake Total 420 ml 360 ml Balance 420 ml 360 ml Intake Oral 420 ml 360 ml # Voids 1 Laboratory Tests 08/15/18 15:59: Arterial Blood pH 7.270L, Arterial Blood Partial Pressure CO2 36.8, Arterial Blood Partial Pressure O2 135.8H, Arterial Blood HCO3 16.5*L, Arterial Blood Oxygen Saturation 98.2, Arterial Blood Base Excess -9.6*L, Patrick Test Positive 08/16/18 07:20: White Blood Count 9.1, Red Blood Count 2.80L, Hemoglobin 9.1L, Hematocrit 28.7L , Mean Corpuscular Volume 102H, Mean Corpuscular Hemoglobin 32.4H, Mean Corpuscular Hemoglobin Concent 31.6L, Red Cell Distribution Width 13.9, Platelet Count 169, Mean Platelet Volume 7.3, Neutrophils (%) (Auto) 81.0H, Lymphocytes (%) (Auto) 11.4L, Monocytes (%) (Auto) 4.8, Eosinophils (%) (Auto) 2.1, Basophils (%) (Auto) 0.8, Prothrombin Time 10.7, Prothromb Time International Ratio 1.0, Activated Partial Thromboplast Time 29, Sodium Level 137, Potassium Level 4.9, Chloride Level 108H, Carbon Dioxide Level 19L, Anion Gap 10, Blood Urea Nitrogen 53H, Creatinine 3.6H, Estimat Glomerular Filtration Rate 15.9, Glucose Level 233H, Calcium Level 8.1L Height (Feet): 5 Height (Inches): 2.00 Weight (Pounds): 165 Objective GENERAL: Alert, awake, and oriented. LUNGS: Decreased breath sounds bilaterally. HEART: S1 and S2 regular. ABDOMEN: Benign. EXTREMITIES: No cyanosis. No clubbing. NEURO: No changes. Kwabena Verduzco Aug 16, 2018 09:01
--- NOTE | 2018-08-16 09:18 | Nephrology Progress Note ---
Assessment/Plan Assessment 1.MICHELLE worsen 2.CKD 3.HTN 4.Acidosis 5.MILLA Plan PLAN repeat urine study Start bicitra 30 ml po bid check phos ,PTH monitoring renal function avoid NSAID Subjective Constitutional: Reports: no symptoms HEENT: Reports: no symptoms Genitourinary: Reports: no symptoms Neurologic/Psychiatric: Reports: no symptoms Subjective alert and awake no complaints Objective Objective Last 24 Hour Vital Signs Date Time Temp Pulse Resp B/P (MAP) Pulse Ox O2 Delivery O2 Flow Rate FiO2 08/16/18 08:34 62 140/63 08/16/18 08:34 62 140/63 08/16/18 08:31 62 140/63 08/16/18 05:58 134/53 08/16/18 05:58 134/53 08/16/18 04:00 72 08/16/18 04:00 98.0 60 24 144/78 (100) 99 08/16/18 00:00 67 08/16/18 00:00 97.9 61 24 147/83 (104) 99 08/15/18 22:03 134/54 08/15/18 22:03 134/54 08/15/18 21:00 Room Air Room Air 08/15/18 20:52 64 18 Room Air 21 08/15/18 20:51 63 152/81 08/15/18 20:00 63 08/15/18 20:00 98.4 63 24 152/81 (104) 99 08/15/18 16:37 97.3 62 18 119/50 (73) 100 08/15/18 16:00 62 08/15/18 13:33 138/53 08/15/18 13:33 138/53 08/15/18 12:08 98.1 66 18 138/53 (81) 97 08/15/18 12:00 64 Intake and Output 08/15/18 08/16/18 18:59 06:59 Intake Total 420 ml 360 ml Balance 420 ml 360 ml Intake Oral 420 ml 360 ml # Voids 1 Laboratory Tests 08/15/18 15:59: Arterial Blood pH 7.270L, Arterial Blood Partial Pressure CO2 36.8, Arterial Blood Partial Pressure O2 135.8H, Arterial Blood HCO3 16.5*L, Arterial Blood Oxygen Saturation 98.2, Arterial Blood Base Excess -9.6*L, Patrick Test Positive 08/16/18 07:20: White Blood Count 9.1, Red Blood Count 2.80L, Hemoglobin 9.1L, Hematocrit 28.7L , Mean Corpuscular Volume 102H, Mean Corpuscular Hemoglobin 32.4H, Mean Corpuscular Hemoglobin Concent 31.6L, Red Cell Distribution Width 13.9, Platelet Count 169, Mean Platelet Volume 7.3, Neutrophils (%) (Auto) 81.0H, Lymphocytes (%) (Auto) 11.4L, Monocytes (%) (Auto) 4.8, Eosinophils (%) (Auto) 2.1, Basophils (%) (Auto) 0.8, Prothrombin Time 10.7, Prothromb Time International Ratio 1.0, Activated Partial Thromboplast Time 29, Sodium Level 137, Potassium Level 4.9, Chloride Level 108H, Carbon Dioxide Level 19L, Anion Gap 10, Blood Urea Nitrogen 53H, Creatinine 3.6H, Estimat Glomerular Filtration Rate 15.9, Glucose Level 233H, Calcium Level 8.1L Height (Feet): 5 Height (Inches): 2.00 Weight (Pounds): 165 Objective HEAD AND NECK: No JVP. No LAD. No thyromegaly. Extraocular movement intact. Pupils are reactive to light and accommodation. LUNGS: Clear to auscultation. Decreased breathing sound on the both sides. CARDIAC: Regular rate and rhythm. S1 and S2. No murmur. No rub. ABDOMEN: Soft, nontender, and nondistended. EXTREMITIES: Have 1+ edema. No clubbing. No cyanosis. Nabila Park MD Aug 16, 2018 09:18
--- NOTE | 2018-08-16 10:19 | NUR ---
CASE MANAGEMENT:REVIEW 08/16/18 SI: AC/CHR RENAL FAILURE. PLEURAL EFFUSION 98.0 62 20 140/63 98% ON RA 9.1/28.7 BUN+53 CR+3.6 IS: PROCRIT SQ MWF BICITRA PO BID CLONIDINE PO Q8HRS HYDRALAZINE PO Q8 NORVASC PO QD PLAVIX PO QD PROTONIX PO QD COREG PO Q12 NEURONTIN PO Q12 HEPARIN SQ Q12 REMERON PO QHS PERCOCET PO Q4HRS PRN : TELEMETRY STATUS DCP; FROM HOME PLAN: WORSENING RENAL FUNCTION ...WAS 2.2 ON ADMISSION ...NOW 3.6 FOLLOWING UP WITH [facility] T: [phone] REGARDING WHEEL CHAIR
[2018-08-16 12:00] VITALS: BP 135/56
--- NOTE | 2018-08-16 13:40 | Pulmonology Progress Note ---
Assessment/Plan Assessment/Plan ASSESSMENT: The patient is a 53-year-old female, history of solitary kidney, CKD stage 4, hypertension, hyperlipidemia, prior admission with pleural effusions likely congestive heart failure, and anemia presenting with shortness of breath likely decompensated heart failure. The patient does not clinically appear infected, is afebrile, has only a mild leukocytosis. She is being treated for possible pneumonia with Rocephin under the care of the Infectious Disease service. PROBLEM LIST: 1. Mild hypoxemia. 2. Questionable history of asthma. 3. CHF with DD 4. Prior CT scan 07/19/2018 with evidence of mediastinal, hilar, and axillary lymphadenopathy. 5. History of transudative pleural effusion. 6. Pulmonary hypertension. 7. MICHELLE on CKD with METABOLIC ACIDOSIS 8. Edema. 9. Prior CVA. 10. Elevated RF with neg CCP TREATMENT PLAN: LIMITED PH WORK UP: CHIDI, VQ (REFUSED), SEROLOGIES NOTE, repeat ABG Consideration for RHC, would be very helpful in determining PA pressure and volume management Monitor volumes and renal function, F/U renal recs, continue BICITRA, MAY NEED DIALYSIS - Xavier Jain notified Optimize pulmonary hygiene/mobilize as tolerated. Titrate FiO2 to keep saturations greater than 90%. PRN bronchodilators. CT chest with minimal GGO's and non-specific LAD --> REPEAT PLEURAL FLUID CYTOLOGY SHORT INTERVAL REPEAT IMAGING AN OUTPATIENT WITH CONSIDERATION OF EBUS VS MEDIASTINOSCOPY Observe off Antibiotics per ID. Aspiration precautions. TRACK LAYER recs, VSS (refused) DVT prophylaxis heparin subcutaneous. The patient should have outpatient pulmonary workup including full PFTs and PSG Subjective Allergies: Coded Allergies: LISINOPRIL (Verified Allergy, Unknown, 07/16/18) LOSARTAN (Verified Allergy, Unknown, 07/16/18) Subjective AFVSS on RA Refused VQ 7.27/36/135/16/98, renal function worse No SOB + QUIROGA with minimal activity no cough no CP no F/C Objective Last 24 Hour Vital Signs Date Time Temp Pulse Resp B/P (MAP) Pulse Ox O2 Delivery O2 Flow Rate FiO2 08/16/18 12:00 97.6 66 17 135/56 (82) 97 08/16/18 09:00 Room Air Room Air 08/16/18 08:34 62 140/63 08/16/18 08:34 62 140/63 08/16/18 08:31 62 140/63 08/16/18 08:00 63 08/16/18 08:00 62 20 140/63 (88) 98 08/16/18 07:22 62 20 Room Air 21 08/16/18 05:58 134/53 08/16/18 05:58 134/53 08/16/18 04:00 72 08/16/18 04:00 98.0 60 24 144/78 (100) 99 08/16/18 00:00 67 08/16/18 00:00 97.9 61 24 147/83 (104) 99 08/15/18 22:03 134/54 08/15/18 22:03 134/54 08/15/18 21:00 Room Air Room Air 08/15/18 20:52 64 18 Room Air 21 08/15/18 20:51 63 152/81 08/15/18 20:00 63 08/15/18 20:00 98.4 63 24 152/81 (104) 99 08/15/18 16:37 97.3 62 18 119/50 (73) 100 08/15/18 16:00 62 Intake and Output 08/15/18 08/16/18 18:59 06:59 Intake Total 420 ml 360 ml Balance 420 ml 360 ml Intake Oral 420 ml 360 ml # Voids 1 General Appearance: no acute distress, cachetic HEENT: normocephalic, atraumatic, anicteric, mucous membranes moist, other - elevated JVD Respiratory/Chest: chest wall non-tender, lungs clear - but decreased BS, normal breath sounds, no respiratory distress Cardiovascular: normal peripheral pulses, normal rate, regular rhythm Abdomen: normal bowel sounds, soft, non tender, no organomegaly, non distended , no mass Extremities: no cyanosis, no clubbing, other - trace SANTOS Laboratory Tests 08/15/18 15:59: Arterial Blood pH 7.270L, Arterial Blood Partial Pressure CO2 36.8, Arterial Blood Partial Pressure O2 135.8H, Arterial Blood HCO3 16.5*L, Arterial Blood Oxygen Saturation 98.2, Arterial Blood Base Excess -9.6*L, Patrick Test Positive 08/16/18 07:20: White Blood Count 9.1, Red Blood Count 2.80L, Hemoglobin 9.1L, Hematocrit 28.7L , Mean Corpuscular Volume 102H, Mean Corpuscular Hemoglobin 32.4H, Mean Corpuscular Hemoglobin Concent 31.6L, Red Cell Distribution Width 13.9, Platelet Count 169, Mean Platelet Volume 7.3, Neutrophils (%) (Auto) 81.0H, Lymphocytes (%) (Auto) 11.4L, Monocytes (%) (Auto) 4.8, Eosinophils (%) (Auto) 2.1, Basophils (%) (Auto) 0.8, Prothrombin Time 10.7, Prothromb Time International Ratio 1.0, Activated Partial Thromboplast Time 29, Sodium Level 137, Potassium Level 4.9, Chloride Level 108H, Carbon Dioxide Level 19L, Anion Gap 10, Blood Urea Nitrogen 53H, Creatinine 3.6H, Estimat Glomerular Filtration Rate 15.9, Glucose Level 233H, Calcium Level 8.1L Current Medications Medications (Trade) Dose Ordered Sig/Zara Route PRN Reason Start Time Stop Time Status Last Admin Dose Admin Acetaminophen (Tylenol) 650 mg Q4H PRN ORAL Mild Pain/Temp > 100.5 08/09/18 12:15 09/08/18 12:14 Albuterol/ Ipratropium (Albuterol/ Ipratropium) 3 ml Q4H PRN HHN Shortness of Breath 08/15/18 16:00 08/20/18 15:59 Amlodipine Besylate (Norvasc) 10 mg DAILY ORAL 08/10/18 09:00 09/09/18 08:59 08/16/18 08:34 Atorvastatin Calcium (Lipitor) 10 mg BEDTIME ORAL 08/09/18 21:00 09/08/18 20:59 08/15/18 20:50 Carvedilol (Coreg) 37.5 mg EVERY 12 HOURS ORAL 08/09/18 21:00 09/08/18 20:59 08/16/18 08:34 Clonidine HCl (Catapres Tab) 0.1 mg EVERY 8 HOURS ORAL 08/10/18 22:00 09/09/18 21:59 08/16/18 05:58 Clopidogrel Bisulfate (Plavix) 75 mg DAILY ORAL 08/10/18 09:00 09/09/18 08:59 08/15/18 08:25 Epoetin Yordan (Procrit (for non ESRD use)) 5,000 units SUBQ 08/11/18 21:00 09/10/18 20:59 08/14/18 21:31 Gabapentin (Neurontin) 300 mg Q12HR ORAL 08/09/18 21:00 09/08/18 20:59 08/16/18 08:34 Heparin Sodium (Porcine) (Heparin 5000 units/ml) 5,000 units EVERY 12 HOURS SUBQ 08/09/18 21:00 09/08/18 20:59 08/15/18 08:28 Hydralazine HCl (Apresoline) 100 mg Q8HR ORAL 08/10/18 14:00 09/09/18 13:59 08/16/18 05:58 Minoxidil (Loniten) 2.5 mg Q4H PRN ORAL sbp> 165 08/09/18 12:15 09/08/18 12:14 08/11/18 00:00 Mirtazapine (Remeron) 7.5 mg BEDTIME ORAL 08/09/18 21:00 09/08/18 20:59 08/15/18 20:50 Nateglinide (Starlix) 120 mg TIAC ORAL 08/09/18 16:30 09/08/18 16:29 08/16/18 10:47 Ondansetron HCl (Zofran) 4 mg Q6H PRN IVP Nausea & Vomiting 08/09/18 12:15 09/08/18 12:14 Oxycodone/ Acetaminophen (Percocet 10/325) 1 tab Q4H PRN ORAL moderate-severe (4-10) pain 08/15/18 08:55 08/22/18 08:54 08/16/18 10:50 Pantoprazole (Protonix) 40 mg DAILY ORAL 08/10/18 09:00 09/09/18 08:59 08/16/18 08:34 Polyethylene Glycol (Miralax) 17 gm DAILYPRN PRN ORAL Constipation 08/09/18 12:15 09/08/18 12:14 Sodium Citrate (Bicitra) 30 ml BID ORAL 08/11/18 18:00 09/10/18 17:59 08/16/18 08:34 Trazodone HCl (Desyrel) 50 mg BEDTIME ORAL 08/09/18 21:00 09/08/18 20:59 08/15/18 20:50 Kevin Gutiérrez MD Aug 16, 2018 13:40
--- NOTE | 2018-08-16 14:23 | NUR ---
RD ASSESSMENT & RECOMMENDATIONS SEE CARE ACTIVITY FOR COMPLETE ASSESSMENT DAILY ESTIMATED NEEDS: Needs based on Renal, DM, cardiac 55.5kg adj 25-30 kcals/kg 4572-5742 total kcals .8-1.2 g protein/kg 44-67 g total protein 25-30 mL/kg 4870-5319 total fluid mLs NUTRITION DIAGNOSIS: Altered nutrition related lab values r/t renal dysfunction, DM, and cardiac history as evidenced by elev creat (3.6), elev BUN (53), elev Phos (5.0), elev BNP (>[id number]), elev BP, elev BGs (200's). CURRENT DIET: RENAL PO DIET RECOMMENDATIONS: RENAL, CCHO LOW ADDITIONAL RECOMMENDATIONS: 1) Monitor lytes and need for dietary restriction (elev phos, K rising/wnl) 2) Obtain an updated standing scale wt as able 3) NEPRO QD w/ fair po intake 4) Add accucheck w/ SSI- DM dx, elev BGs . .
--- NOTE | 2018-08-16 14:56 | General Progress Note ---
Assessment/Plan Problem List: (1) Acute on chronic renal failure ICD Codes: N17.9 - Acute kidney failure, unspecified; N18.9 - Chronic kidney disease, unspecified SNOMED: 295674509 Qualifiers: Qualified Codes: N17.9 - Acute kidney failure, unspecified; N18.9 - Chronic kidney disease, unspecified (2) Anemia ICD Codes: D64.9 - Anemia, unspecified SNOMED: 141492935 (3) Hypertension ICD Codes: I10 - Essential (primary) hypertension SNOMED: 86340310 (4) Diabetes mellitus ICD Codes: E11.9 - Type 2 diabetes mellitus without complications SNOMED: 64091562 Status: stable, progressing Assessment/Plan pulm tx prn bp bs control cbc bmp am dc plan w hh Subjective Constitutional: Reports: weakness Allergies: Coded Allergies: LISINOPRIL (Verified Allergy, Unknown, 07/16/18) LOSARTAN (Verified Allergy, Unknown, 07/16/18) All Systems: reviewed and negative except above Subjective o2nc calm in bed Objective Last 24 Hour Vital Signs Date Time Temp Pulse Resp B/P (MAP) Pulse Ox O2 Delivery O2 Flow Rate FiO2 08/16/18 14:11 123/53 08/16/18 14:10 123/53 08/16/18 12:00 97.6 66 17 135/56 (82) 97 08/16/18 12:00 60 08/16/18 09:00 Room Air Room Air 08/16/18 08:34 62 140/63 08/16/18 08:34 62 140/63 08/16/18 08:31 62 140/63 08/16/18 08:00 63 08/16/18 08:00 62 20 140/63 (88) 98 08/16/18 07:22 62 20 Room Air 21 08/16/18 05:58 134/53 08/16/18 05:58 134/53 08/16/18 04:00 72 08/16/18 04:00 98.0 60 24 144/78 (100) 99 08/16/18 00:00 67 08/16/18 00:00 97.9 61 24 147/83 (104) 99 08/15/18 22:03 134/54 08/15/18 22:03 134/54 08/15/18 21:00 Room Air Room Air 08/15/18 20:52 64 18 Room Air 21 08/15/18 20:51 63 152/81 08/15/18 20:00 63 08/15/18 20:00 98.4 63 24 152/81 (104) 99 08/15/18 16:37 97.3 62 18 119/50 (73) 100 08/15/18 16:00 62 Intake and Output 08/15/18 08/16/18 19:00 07:00 Intake Total 420 ml 360 ml Balance 420 ml 360 ml Intake Oral 420 ml 360 ml # Voids 1 Laboratory Tests 08/15/18 15:59: Arterial Blood pH 7.270L, Arterial Blood Partial Pressure CO2 36.8, Arterial Blood Partial Pressure O2 135.8H, Arterial Blood HCO3 16.5*L, Arterial Blood Oxygen Saturation 98.2, Arterial Blood Base Excess -9.6*L, Patrick Test Positive 08/16/18 07:20: White Blood Count 9.1, Red Blood Count 2.80L, Hemoglobin 9.1L, Hematocrit 28.7L , Mean Corpuscular Volume 102H, Mean Corpuscular Hemoglobin 32.4H, Mean Corpuscular Hemoglobin Concent 31.6L, Red Cell Distribution Width 13.9, Platelet Count 169, Mean Platelet Volume 7.3, Neutrophils (%) (Auto) 81.0H, Lymphocytes (%) (Auto) 11.4L, Monocytes (%) (Auto) 4.8, Eosinophils (%) (Auto) 2.1, Basophils (%) (Auto) 0.8, Prothrombin Time 10.7, Prothromb Time International Ratio 1.0, Activated Partial Thromboplast Time 29, Sodium Level 137, Potassium Level 4.9, Chloride Level 108H, Carbon Dioxide Level 19L, Anion Gap 10, Blood Urea Nitrogen 53H, Creatinine 3.6H, Estimat Glomerular Filtration Rate 15.9, Glucose Level 233H, Calcium Level 8.1L Height (Feet): 5 Height (Inches): 2.00 Weight (Pounds): 165 General Appearance: lethargic EENT: normal ENT inspection Neck: normal alignment Cardiovascular: normal peripheral pulses, normal rate, regular rhythm Respiratory/Chest: chest wall non-tender, decreased breath sounds Abdomen: normal bowel sounds, non tender, soft Extremities: normal inspection Edema: no edema noted Arm (L), no edema noted Arm (R), no edema noted Leg (L), no edema noted Leg (R), no edema noted Pedal (L), no edema noted Pedal (R), no edema noted Generalized Neurologic: motor weakness Skin: normal pigmentation, warm/dry Naun Geiger DO Aug 16, 2018 14:56
[2018-08-16 16:00] VITALS: BP 121/52
--- NOTE | 2018-08-16 16:08 | Diagnostic Imaging Report ---
Indication: Shortness of breath, abnormal recent chest CT showing pleural effusions Technique: Grayscale images of the bilateral hemithoraces anticipation of thoracentesis Comparison: Reference made to chest CT dated 08/11/2018 Findings: No definite pleural fluid is demonstrated in either hemithorax. Impression: No pleural effusion demonstrated, likely reflecting interim resolution of pleural fluid previously demonstrated on CT. No procedure performed
--- NOTE | 2018-08-16 19:32 | NUR ---
NURSE NOTES: Report received from JENNIFER Gastelum. Pt is lying comfortably in semi-fowlers with no sign of distress noted. A+Ox4, denies pain/SOB. IV site is patent, intact, and saline locked. Respirations are even and unlabored on room air. Bed is at lowest position, brakes engaged, siderails x2, bed alarm on, and call light within reach. Family is at bedside. Will continue to monitor patient.
--- NOTE | 2018-08-16 19:53 | NUR ---
HAND-OFF: Report given to JENNIFER Hamilton. Plan of care endorsed.
[2018-08-16 20:00] VITALS: BP 131/57
[2018-08-16] MEDS: TraZODone 50mg tab ORAL SCH (21:24)
[2018-08-16] MEDS: Epogen (for non ESRD use) SUBQ SCH (21:25)
[2018-08-17] VITALS: BP 128/52
[2018-08-17 04:00] VITALS: BP 126/45
[2018-08-17] MEDS: HydrALAZINE 50mg tab ORAL SCH ×3 (06:00→22:53)
[2018-08-17 07:30] LABS: BASOPHILS % (AUTO) 0.5 % (0.0-2.0); EOSINOPHILS % (AUTO) 3.2 % (0.0-3.0); HEMATOCRIT 28.7 % (37.0-47.0); HEMOGLOBIN 9.1 G/DL (12.0-16.0); LYMPHOCYTES % (AUTO) 14.4 % (20.0-45.0); MEAN CORPUSCULAR VOLUME 101 FL (80-99); MONOCYTES % (AUTO) 7.2 % (1.0-10.0); NEUTROPHILS % (AUTO) 74.7 % (45.0-75.0); PLATELET COUNT 167 K/UL (150-450); RED BLOOD COUNT 2.83 M/UL (4.20-5.40); RED CELL DISTRIBUTION WIDTH 13.7 % (11.6-14.8); WHITE BLOOD COUNT 7.2 K/UL (4.8-10.8)
[2018-08-17 07:56] LABS: ANION GAP 11 mmol/L (5-15); BLOOD UREA NITROGEN 56 mg/dL (7-18); CALCIUM 8.5 MG/DL (8.5-10.1); CARBON DIOXIDE 18 MMOL/L (21-32); CHLORIDE 107 MMOL/L (98-107); CREATININE 3.8 MG/DL (0.55-1.30); POTASSIUM 4.6 MMOL/L (3.5-5.1); SODIUM 136 MMOL/L (136-145)
[2018-08-17 08:00] VITALS: BP 138/44
--- NOTE | 2018-08-17 08:57 | General Progress Note ---
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 D/w Dr. Hagen and he concurred. Subjective Date patient seen: Aug 17, 2018 Time patient seen: 07:45 - am Allergies: Coded Allergies: LISINOPRIL (Verified Allergy, Unknown, 07/16/18) LOSARTAN (Verified Allergy, Unknown, 07/16/18) Subjective REVIEW OF SYSTEMS: Denies rash, fever, chills, sweating, dizziness, drowsiness, blurred vision, sore throat, change in her weight. No shortness of breath at this time. No chest pain, palpitations, or cough. No nausea, vomiting, diarrhea, or blood in the stool or urine. No bowel or bladder incontinence. She is complaining of generalized body pain. SUBJECTIVE: Patient is in bed still c/o pain and has been using the Percocet 4 doses in the last 24hrs. She has no new complaints at this time. Objective Last 24 Hour Vital Signs Date Time Temp Pulse Resp B/P (MAP) Pulse Ox O2 Delivery O2 Flow Rate FiO2 08/17/18 06:00 111/50 08/17/18 06:00 111/50 08/17/18 04:00 65 08/17/18 04:00 98.8 66 20 126/45 (72) 96 08/17/18 00:00 65 18 128/52 (77) 100 08/17/18 00:00 63 08/16/18 21:25 131/57 08/16/18 21:25 65 131/57 08/16/18 21:24 131/57 08/16/18 21:00 Room Air Room Air 08/16/18 20:00 63 08/16/18 20:00 65 16 131/57 (81) 99 08/16/18 19:17 63 18 Room Air 21 08/16/18 17:36 97.3 08/16/18 16:00 61 08/16/18 16:00 97.3 63 13 121/52 (75) 99 08/16/18 14:11 123/53 08/16/18 14:10 123/53 08/16/18 12:00 97.6 66 17 135/56 (82) 97 08/16/18 12:00 60 08/16/18 09:00 Room Air Room Air Intake and Output 08/16/18 08/17/18 19:00 07:00 Intake Total 360 ml Balance 360 ml Intake Oral 360 ml # Voids 1 Laboratory Tests 08/17/18 06:55: White Blood Count 7.2, Red Blood Count 2.83L, Hemoglobin 9.1L, Hematocrit 28.7L , Mean Corpuscular Volume 101H, Mean Corpuscular Hemoglobin 32.1H, Mean Corpuscular Hemoglobin Concent 31.7L, Red Cell Distribution Width 13.7, Platelet Count 167, Mean Platelet Volume 7.2, Neutrophils (%) (Auto) 74.7, Lymphocytes (%) (Auto) 14.4L, Monocytes (%) (Auto) 7.2, Eosinophils (%) (Auto) 3.2H, Basophils (%) (Auto) 0.5, Sodium Level 136, Potassium Level 4.6, Chloride Level 107, Carbon Dioxide Level 18L, Anion Gap 11, Blood Urea Nitrogen 56H, Creatinine 3.8H, Estimat Glomerular Filtration Rate 14.9, Glucose Level 215H, Calcium Level 8.5 Height (Feet): 5 Height (Inches): 2.00 Weight (Pounds): 165 Objective GENERAL: Alert, awake, and oriented. LUNGS: Decreased breath sounds bilaterally. HEART: S1 and S2 regular. ABDOMEN: Benign. EXTREMITIES: No cyanosis. No clubbing. NEURO: No changes. Kwabena Verduzco Aug 17, 2018 08:57
[2018-08-17] MEDS: Carvedilol 12.5mg tab ORAL SCH (09:18)
[2018-08-17] MEDS: Sodium Citrate 30ml ORAL SCH ×3 (09:18→17:35)
[2018-08-17] MEDS: Heparin 5000 units/ml inj SUBQ SCH ×2 (09:20→21:09)
--- NOTE | 2018-08-17 10:39 | Infectious Diseases Prog Note ---
Assessment/Plan Assessment/Plan A; Leukocytosis resolved Hypoxemia CHF CKD DM type 2 s/p CVA P: Observe off antibiotic Subjective ROS Limited/Unobtainable: Yes Constitutional: Reports: other - afebrile Allergies: Coded Allergies: LISINOPRIL (Verified Allergy, Unknown, 07/16/18) LOSARTAN (Verified Allergy, Unknown, 07/16/18) Objective Vital Signs Last 24 Hour Vital Signs Date Time Temp Pulse Resp B/P (MAP) Pulse Ox O2 Delivery O2 Flow Rate FiO2 08/17/18 09:19 72 138/44 08/17/18 09:18 72 138/44 08/17/18 08:30 72 17 Room Air 21 08/17/18 08:00 70 18 138/44 (75) 97 08/17/18 06:00 111/50 08/17/18 06:00 111/50 08/17/18 04:00 65 08/17/18 04:00 98.8 66 20 126/45 (72) 96 08/17/18 00:00 65 18 128/52 (77) 100 08/17/18 00:00 63 08/16/18 21:25 131/57 08/16/18 21:25 65 131/57 08/16/18 21:24 131/57 08/16/18 21:00 Room Air Room Air 08/16/18 20:00 63 08/16/18 20:00 65 16 131/57 (81) 99 08/16/18 19:17 63 18 Room Air 21 08/16/18 17:36 97.3 08/16/18 16:00 61 08/16/18 16:00 97.3 63 13 121/52 (75) 99 08/16/18 14:11 123/53 08/16/18 14:10 123/53 08/16/18 12:00 97.6 66 17 135/56 (82) 97 08/16/18 12:00 60 Height (Feet): 5 Height (Inches): 2.00 Weight (Pounds): 165 General Appearance: no acute distress HEENT: mucous membranes moist Respiratory/Chest: lungs clear Cardiovascular: normal rate Abdomen: soft, non tender Extremities: other - edema Neurologic/Psychiatric: other - sleeping Laboratory Tests Test 08/17/18 06:55 White Blood Count 7.2 K/UL (4.8-10.8) Red Blood Count 2.83 M/UL (4.20-5.40) L Hemoglobin 9.1 G/DL (12.0-16.0) L Hematocrit 28.7 % (37.0-47.0) L Mean Corpuscular Volume 101 FL (80-99) H Mean Corpuscular Hemoglobin 32.1 PG (27.0-31.0) H Mean Corpuscular Hemoglobin Concent 31.7 G/DL (32.0-36.0) L Red Cell Distribution Width 13.7 % (11.6-14.8) Platelet Count 167 K/UL (150-450) Mean Platelet Volume 7.2 FL (6.5-10.1) Neutrophils (%) (Auto) 74.7 % (45.0-75.0) Lymphocytes (%) (Auto) 14.4 % (20.0-45.0) L Monocytes (%) (Auto) 7.2 % (1.0-10.0) Eosinophils (%) (Auto) 3.2 % (0.0-3.0) H Basophils (%) (Auto) 0.5 % (0.0-2.0) Sodium Level 136 MMOL/L (136-145) Potassium Level 4.6 MMOL/L (3.5-5.1) Chloride Level 107 MMOL/L (98-107) Carbon Dioxide Level 18 MMOL/L (21-32) L Anion Gap 11 mmol/L (5-15) Blood Urea Nitrogen 56 mg/dL (7-18) H Creatinine 3.8 MG/DL (0.55-1.30) H Estimat Glomerular Filtration Rate 14.9 mL/min (>60) Glucose Level 215 MG/DL (74-106) H Calcium Level 8.5 MG/DL (8.5-10.1) Current Medications Medications (Trade) Dose Ordered Sig/Zaar Route PRN Reason Start Time Stop Time Status Last Admin Dose Admin Acetaminophen (Tylenol) 650 mg Q4H PRN ORAL Mild Pain/Temp > 100.5 08/09/18 12:15 09/08/18 12:14 Albuterol/ Ipratropium (Albuterol/ Ipratropium) 3 ml Q4H PRN HHN Shortness of Breath 08/15/18 16:00 08/20/18 15:59 Amlodipine Besylate (Norvasc) 10 mg DAILY ORAL 08/10/18 09:00 09/09/18 08:59 08/17/18 09:19 Atorvastatin Calcium (Lipitor) 10 mg BEDTIME ORAL 08/09/18 21:00 09/08/18 20:59 08/16/18 21:23 Carvedilol (Coreg) 37.5 mg EVERY 12 HOURS ORAL 08/09/18 21:00 09/08/18 20:59 08/17/18 09:18 Clonidine HCl (Catapres Tab) 0.1 mg EVERY 8 HOURS ORAL 08/10/18 22:00 09/09/18 21:59 08/16/18 21:25 Clopidogrel Bisulfate (Plavix) 75 mg DAILY ORAL 08/10/18 09:00 09/09/18 08:59 08/17/18 09:18 Epoetin Yordan (Procrit (for non ESRD use)) 5,000 units TUE-TUE-TUE SUBQ 08/11/18 21:00 09/10/18 20:59 08/16/18 21:25 Gabapentin (Neurontin) 300 mg Q12HR ORAL 08/09/18 21:00 09/08/18 20:59 08/17/18 09:18 Heparin Sodium (Porcine) (Heparin 5000 units/ml) 5,000 units EVERY 12 HOURS SUBQ 08/09/18 21:00 09/08/18 20:59 08/17/18 09:20 Hydralazine HCl (Apresoline) 100 mg Q8HR ORAL 08/10/18 14:00 09/09/18 13:59 08/16/18 21:24 Minoxidil (Loniten) 2.5 mg Q4H PRN ORAL sbp> 165 08/09/18 12:15 09/08/18 12:14 08/11/18 00:00 Mirtazapine (Remeron) 7.5 mg BEDTIME ORAL 08/09/18 21:00 09/08/18 20:59 08/16/18 21:23 Nateglinide (Starlix) 120 mg TIAC ORAL 08/09/18 16:30 09/08/18 16:29 08/17/18 06:00 Ondansetron HCl (Zofran) 4 mg Q6H PRN IVP Nausea & Vomiting 08/09/18 12:15 09/08/18 12:14 Oxycodone/ Acetaminophen (Percocet 10/325) 1 tab Q4H PRN ORAL moderate-severe (4-10) pain 08/15/18 08:55 08/22/18 08:54 08/17/18 06:00 Pantoprazole (Protonix) 40 mg DAILY ORAL 08/10/18 09:00 09/09/18 08:59 08/17/18 09:18 Polyethylene Glycol (Miralax) 17 gm DAILYPRN PRN ORAL Constipation 08/09/18 12:15 09/08/18 12:14 Sodium Citrate (Bicitra) 30 ml BID ORAL 08/11/18 18:00 09/10/18 17:59 08/17/18 09:18 Trazodone HCl (Desyrel) 50 mg BEDTIME ORAL 08/09/18 21:00 09/08/18 20:59 08/16/18 21:24 Jt Rizvi MD Aug 17, 2018 10:39
--- NOTE | 2018-08-17 11:15 | NUR ---
HAND-OFF: Report given to JENNIFER Hernandez. Pt is in stable condition; plan of care endorsed.
--- NOTE | 2018-08-17 11:42 | NUR ---
NURSE NOTES: Received report from JENNIFER Butcher. Patient is in stable condition. No acute distress/SOB noted. Patient denies any pain/discomfort. Will continue plan of care.
[2018-08-17 12:00] VITALS: BP 153/63
--- NOTE | 2018-08-17 13:22 | General Progress Note ---
Assessment/Plan Problem List: (1) Acute on chronic renal failure ICD Codes: N17.9 - Acute kidney failure, unspecified; N18.9 - Chronic kidney disease, unspecified SNOMED: 493547222 Qualifiers: Qualified Codes: N17.9 - Acute kidney failure, unspecified; N18.9 - Chronic kidney disease, unspecified (2) Anemia ICD Codes: D64.9 - Anemia, unspecified SNOMED: 091525588 (3) Hypertension ICD Codes: I10 - Essential (primary) hypertension SNOMED: 16845536 (4) Diabetes mellitus ICD Codes: E11.9 - Type 2 diabetes mellitus without complications SNOMED: 09457859 Status: stable, progressing Assessment/Plan pulm tx prn bp bs control dc w hh Subjective Constitutional: Reports: weakness Allergies: Coded Allergies: LISINOPRIL (Verified Allergy, Unknown, 07/16/18) LOSARTAN (Verified Allergy, Unknown, 07/16/18) All Systems: reviewed and negative except above Subjective o2nc calm in bed Objective Last 24 Hour Vital Signs Date Time Temp Pulse Resp B/P (MAP) Pulse Ox O2 Delivery O2 Flow Rate FiO2 08/17/18 12:00 64 08/17/18 12:00 66 18 153/63 (93) 100 08/17/18 09:19 72 138/44 08/17/18 09:18 72 138/44 08/17/18 09:00 Room Air Room Air 08/17/18 08:30 72 17 Room Air 21 08/17/18 08:00 69 08/17/18 08:00 70 18 138/44 (75) 97 08/17/18 06:00 111/50 08/17/18 06:00 111/50 08/17/18 04:00 65 08/17/18 04:00 98.8 66 20 126/45 (72) 96 08/17/18 00:00 65 18 128/52 (77) 100 08/17/18 00:00 63 08/16/18 21:25 131/57 08/16/18 21:25 65 131/57 08/16/18 21:24 131/57 08/16/18 21:00 Room Air Room Air 08/16/18 20:00 63 08/16/18 20:00 65 16 131/57 (81) 99 08/16/18 19:17 63 18 Room Air 21 08/16/18 17:36 97.3 08/16/18 16:00 61 08/16/18 16:00 97.3 63 13 121/52 (75) 99 08/16/18 14:11 123/53 08/16/18 14:10 123/53 Intake and Output 08/16/18 08/17/18 18:59 06:59 Intake Total 360 ml Balance 360 ml Intake Oral 360 ml # Voids 1 Laboratory Tests 08/17/18 06:55: White Blood Count 7.2, Red Blood Count 2.83L, Hemoglobin 9.1L, Hematocrit 28.7L , Mean Corpuscular Volume 101H, Mean Corpuscular Hemoglobin 32.1H, Mean Corpuscular Hemoglobin Concent 31.7L, Red Cell Distribution Width 13.7, Platelet Count 167, Mean Platelet Volume 7.2, Neutrophils (%) (Auto) 74.7, Lymphocytes (%) (Auto) 14.4L, Monocytes (%) (Auto) 7.2, Eosinophils (%) (Auto) 3.2H, Basophils (%) (Auto) 0.5, Sodium Level 136, Potassium Level 4.6, Chloride Level 107, Carbon Dioxide Level 18L, Anion Gap 11, Blood Urea Nitrogen 56H, Creatinine 3.8H, Estimat Glomerular Filtration Rate 14.9, Glucose Level 215H, Calcium Level 8.5 08/17/18 09:50: Urine Eosinophils None seen, Urine Random Creatinine [Pending], Urine Random Microalbumin [Pending], Urine Random Total Protein 261H, Urine Random Sodium 38 , Urine Creatinine 95.2, Urine Microalbumin/Creatinine Ratio [Pending] Height (Feet): 5 Height (Inches): 2.00 Weight (Pounds): 165 General Appearance: lethargic EENT: normal ENT inspection Neck: non-tender Cardiovascular: normal peripheral pulses, normal rate, regular rhythm Respiratory/Chest: chest wall non-tender, lungs clear, normal breath sounds Abdomen: normal bowel sounds, non tender, soft Extremities: normal inspection Edema: no edema noted Arm (L), no edema noted Arm (R), no edema noted Leg (L), no edema noted Leg (R), no edema noted Pedal (L), no edema noted Pedal (R), no edema noted Generalized Neurologic: responsive, motor weakness Skin: normal pigmentation, warm/dry Naun Geiger DO Aug 17, 2018 13:22
--- NOTE | 2018-08-17 14:29 | NUR ---
DISCHARGE PLANNING PATIENT HAS BEEN REFERRED TO: [facility] F:[phone] Addendum: 08/17/18 at 1430 by DRISS ZULUAGA SPOKE TO LUZ AT [facility] AND THEY HAVE AGREE TO FOLLOW PATIENT.
--- NOTE | 2018-08-17 14:42 | Pulmonology Progress Note ---
Assessment/Plan Assessment/Plan ASSESSMENT: The patient is a 53-year-old female, history of solitary kidney, CKD stage 4, hypertension, hyperlipidemia, prior admission with pleural effusions likely congestive heart failure, and anemia presenting with shortness of breath likely decompensated heart failure. The patient does not clinically appear infected, is afebrile, has only a mild leukocytosis. She is being treated for possible pneumonia with Rocephin under the care of the Infectious Disease service. PROBLEM LIST: 1. Hypoxemia. 2. Questionable history of asthma. 3. CHF with DD 4. Prior CT scan 07/19/2018 with evidence of mediastinal, hilar, and axillary lymphadenopathy. 5. History of transudative pleural effusion. 6. Pulmonary hypertension. 7. MICHELLE on CKD with METABOLIC ACIDOSIS 8. Edema. 9. Prior CVA. 10. Elevated RF with neg CCP TREATMENT PLAN: LIMITED PH WORK UP: CHIDI, VQ (REFUSED), SEROLOGIES NOTE Consideration for RHC, would be very helpful in determining PA pressure and volume management (declines) Monitor volumes and renal function, F/U renal recs, continue BICITRA --- > D/W Dr. Park, pt has been offered HD and is refusing Optimize pulmonary hygiene/mobilize as tolerated. Titrate FiO2 to keep saturations greater than 90%. PRN bronchodilators. CT chest with minimal GGO's and non-specific LAD --> REPEAT PLEURAL FLUID CYTOLOGY SHORT INTERVAL REPEAT IMAGING AN OUTPATIENT WITH CONSIDERATION OF EBUS VS MEDIASTINOSCOPY Observe off Antibiotics per ID. Aspiration precautions. 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 The patient should have outpatient pulmonary workup including full PFTs and PSG Subjective Allergies: Coded Allergies: LISINOPRIL (Verified Allergy, Unknown, 07/16/18) LOSARTAN (Verified Allergy, Unknown, 07/16/18) Subjective More edematous renal function worse + SOB + QUIROAG no CP no F/C Objective Last 24 Hour Vital Signs Date Time Temp Pulse Resp B/P (MAP) Pulse Ox O2 Delivery O2 Flow Rate FiO2 08/17/18 13:52 153/63 08/17/18 13:52 153/63 08/17/18 12:00 64 08/17/18 12:00 66 18 153/63 (93) 100 08/17/18 09:19 72 138/44 08/17/18 09:18 72 138/44 08/17/18 09:00 Room Air Room Air 08/17/18 08:30 72 17 Room Air 21 08/17/18 08:00 69 08/17/18 08:00 70 18 138/44 (75) 97 08/17/18 06:00 111/50 08/17/18 06:00 111/50 08/17/18 04:00 65 08/17/18 04:00 98.8 66 20 126/45 (72) 96 08/17/18 00:00 65 18 128/52 (77) 100 08/17/18 00:00 63 08/16/18 21:25 131/57 08/16/18 21:25 65 131/57 08/16/18 21:24 131/57 08/16/18 21:00 Room Air Room Air 08/16/18 20:00 63 08/16/18 20:00 65 16 131/57 (81) 99 08/16/18 19:17 63 18 Room Air 21 08/16/18 17:36 97.3 08/16/18 16:00 61 08/16/18 16:00 97.3 63 13 121/52 (75) 99 Intake and Output 08/16/18 08/17/18 18:59 06:59 Intake Total 360 ml Balance 360 ml Intake Oral 360 ml # Voids 1 General Appearance: no acute distress, cachetic HEENT: normocephalic, atraumatic, anicteric, mucous membranes moist, other - poor dentition Respiratory/Chest: chest wall non-tender, crackles/rales Cardiovascular: normal peripheral pulses, normal rate, regular rhythm Abdomen: normal bowel sounds, soft, non tender, no organomegaly, non distended , no mass Extremities: no cyanosis, no clubbing, other - 2+ SANTOS Laboratory Tests 08/17/18 06:55: White Blood Count 7.2, Red Blood Count 2.83L, Hemoglobin 9.1L, Hematocrit 28.7L , Mean Corpuscular Volume 101H, Mean Corpuscular Hemoglobin 32.1H, Mean Corpuscular Hemoglobin Concent 31.7L, Red Cell Distribution Width 13.7, Platelet Count 167, Mean Platelet Volume 7.2, Neutrophils (%) (Auto) 74.7, Lymphocytes (%) (Auto) 14.4L, Monocytes (%) (Auto) 7.2, Eosinophils (%) (Auto) 3.2H, Basophils (%) (Auto) 0.5, Sodium Level 136, Potassium Level 4.6, Chloride Level 107, Carbon Dioxide Level 18L, Anion Gap 11, Blood Urea Nitrogen 56H, Creatinine 3.8H, Estimat Glomerular Filtration Rate 14.9, Glucose Level 215H, Calcium Level 8.5 08/17/18 09:50: Urine Eosinophils None seen, Urine Random Creatinine [Pending], Urine Random Microalbumin [Pending], Urine Random Total Protein 261H, Urine Random Sodium 38 , Urine Creatinine 95.2, Urine Microalbumin/Creatinine Ratio [Pending] Current Medications Medications (Trade) Dose Ordered Sig/Zara Route PRN Reason Start Time Stop Time Status Last Admin Dose Admin Acetaminophen (Tylenol) 650 mg Q4H PRN ORAL Mild Pain/Temp > 100.5 08/09/18 12:15 09/08/18 12:14 Albuterol/ Ipratropium (Albuterol/ Ipratropium) 3 ml Q4H PRN HHN Shortness of Breath 08/15/18 16:00 08/20/18 15:59 Amlodipine Besylate (Norvasc) 10 mg DAILY ORAL 08/10/18 09:00 09/09/18 08:59 08/17/18 09:19 Atorvastatin Calcium (Lipitor) 10 mg BEDTIME ORAL 08/09/18 21:00 09/08/18 20:59 08/16/18 21:23 Carvedilol (Coreg) 37.5 mg EVERY 12 HOURS ORAL 08/09/18 21:00 09/08/18 20:59 08/17/18 09:18 Clonidine HCl (Catapres Tab) 0.1 mg EVERY 8 HOURS ORAL 08/10/18 22:00 09/09/18 21:59 08/17/18 13:52 Clopidogrel Bisulfate (Plavix) 75 mg DAILY ORAL 08/10/18 09:00 09/09/18 08:59 08/17/18 09:18 Epoetin Yordan (Procrit (for non ESRD use)) 5,000 units TUE-WED-TUE SUBQ 08/11/18 21:00 09/10/18 20:59 08/16/18 21:25 Gabapentin (Neurontin) 300 mg Q12HR ORAL 08/09/18 21:00 09/08/18 20:59 08/17/18 09:18 Heparin Sodium (Porcine) (Heparin 5000 units/ml) 5,000 units EVERY 12 HOURS SUBQ 08/09/18 21:00 09/08/18 20:59 08/17/18 09:20 Hydralazine HCl (Apresoline) 100 mg Q8HR ORAL 08/10/18 14:00 09/09/18 13:59 08/17/18 13:52 Minoxidil (Loniten) 2.5 mg Q4H PRN ORAL sbp> 165 08/09/18 12:15 09/08/18 12:14 08/11/18 00:00 Mirtazapine (Remeron) 7.5 mg BEDTIME ORAL 08/09/18 21:00 09/08/18 20:59 08/16/18 21:23 Nateglinide (Starlix) 120 mg TIAC ORAL 08/09/18 16:30 09/08/18 16:29 08/17/18 12:03 Ondansetron HCl (Zofran) 4 mg Q6H PRN IVP Nausea & Vomiting 08/09/18 12:15 09/08/18 12:14 Oxycodone/ Acetaminophen (Percocet 10/325) 1 tab Q4H PRN ORAL moderate-severe (4-10) pain 08/15/18 08:55 08/22/18 08:54 08/17/18 13:56 Pantoprazole (Protonix) 40 mg DAILY ORAL 08/10/18 09:00 09/09/18 08:59 08/17/18 09:18 Polyethylene Glycol (Miralax) 17 gm DAILYPRN PRN ORAL Constipation 08/09/18 12:15 09/08/18 12:14 Sodium Citrate (Bicitra) 30 ml BID ORAL 08/11/18 18:00 09/10/18 17:59 08/17/18 09:18 Trazodone HCl (Desyrel) 50 mg BEDTIME ORAL 08/09/18 21:00 09/08/18 20:59 08/16/18 21:24 Kevin Gutiérrez MD Aug 17, 2018 14:42
[2018-08-17 16:00] VITALS: BP 123/52
--- NOTE | 2018-08-17 19:40 | NUR ---
NURSE NOTES: Received pt. and report from JENNIFER Rollins. Observe pt. resting in bed and watching TV. Pt. has a transfer order to Med Surg, currently awaiting for bed assignment. IV site is intact, asymptomatic and patent. Bed is in the lowest position and locked, call light within reach. No acute distress noted at this time. Will continue plan of care.
--- NOTE | 2018-08-17 19:49 | Nephrology Progress Note ---
Assessment/Plan Assessment 1.MICHELLE worsen 2.CKD 3.HTN 4.Acidosis 5.MILLA Plan PLAN discus possible need for dialysis continue bicitra 30 ml po bid monitoring renal function avoid NSAID Subjective Constitutional: Reports: no symptoms HEENT: Reports: no symptoms Genitourinary: Reports: no symptoms Subjective alert and awake no complaints Objective Objective Last 24 Hour Vital Signs Date Time Temp Pulse Resp B/P (MAP) Pulse Ox O2 Delivery O2 Flow Rate FiO2 08/17/18 16:00 59 08/17/18 16:00 97.6 61 18 123/52 (75) 99 08/17/18 13:52 153/63 08/17/18 13:52 153/63 08/17/18 12:00 64 08/17/18 12:00 66 18 153/63 (93) 100 08/17/18 09:19 72 138/44 08/17/18 09:18 72 138/44 08/17/18 09:00 Room Air Room Air 08/17/18 08:30 72 17 Room Air 21 08/17/18 08:00 69 08/17/18 08:00 70 18 138/44 (75) 97 08/17/18 06:00 111/50 08/17/18 06:00 111/50 08/17/18 04:00 65 08/17/18 04:00 98.8 66 20 126/45 (72) 96 08/17/18 00:00 65 18 128/52 (77) 100 08/17/18 00:00 63 08/16/18 21:25 131/57 08/16/18 21:25 65 131/57 08/16/18 21:24 131/57 08/16/18 21:00 Room Air Room Air 08/16/18 20:00 63 08/16/18 20:00 65 16 131/57 (81) 99 Intake and Output 08/16/18 08/17/18 19:00 07:00 Intake Total 360 ml Balance 360 ml Intake Oral 360 ml # Voids 1 Laboratory Tests 08/17/18 06:55: White Blood Count 7.2, Red Blood Count 2.83L, Hemoglobin 9.1L, Hematocrit 28.7L , Mean Corpuscular Volume 101H, Mean Corpuscular Hemoglobin 32.1H, Mean Corpuscular Hemoglobin Concent 31.7L, Red Cell Distribution Width 13.7, Platelet Count 167, Mean Platelet Volume 7.2, Neutrophils (%) (Auto) 74.7, Lymphocytes (%) (Auto) 14.4L, Monocytes (%) (Auto) 7.2, Eosinophils (%) (Auto) 3.2H, Basophils (%) (Auto) 0.5, Sodium Level 136, Potassium Level 4.6, Chloride Level 107, Carbon Dioxide Level 18L, Anion Gap 11, Blood Urea Nitrogen 56H, Creatinine 3.8H, Estimat Glomerular Filtration Rate 14.9, Glucose Level 215H, Calcium Level 8.5 08/17/18 09:50: Urine Eosinophils None seen, Urine Random Creatinine [Pending], Urine Random Microalbumin [Pending], Urine Random Total Protein 261H, Urine Random Sodium 38 , Urine Creatinine 95.2, Urine Microalbumin/Creatinine Ratio [Pending] Height (Feet): 5 Height (Inches): 2.00 Weight (Pounds): 165 Objective HEAD AND NECK: No JVP. No LAD. No thyromegaly. Extraocular movement intact. Pupils are reactive to light and accommodation. LUNGS: Clear to auscultation. Decreased breathing sound on the both sides. CARDIAC: Regular rate and rhythm. S1 and S2. No murmur. No rub. ABDOMEN: Soft, nontender, and nondistended. EXTREMITIES: Have 1+ edema. No clubbing. No cyanosis. Nabila Park MD Aug 17, 2018 19:49
--- NOTE | 2018-08-17 19:49 | NUR ---
HAND-OFF: Report given to JENNIFER Parra. Patient is in stable condition. No acute distress/SOB noted. Endorsed plan of care.
[2018-08-17 20:00] VITALS: BP 139/57
--- NOTE | 2018-08-17 20:10 | General Progress Note ---
Assessment/Plan Assessment/Plan #. Anemia of chronic disease - patient with ongoing kidney damage, cr is elevated approx 2-2.5 baseline --> anemia panel has reviewed, ferritin 222, has minimal iron depletion --> appreciate nephrology consult --> continue on epogen --> transfuse if hgb is <7 --> hemolysis w/u has been reviewed --> trend hgb 8.9-->8.4-->8.5-->10.7-->9 --> ON EPO SQ AND IRON IV # Leukopenia wbc in the 4-6 range --> hepatitis panel negative, hiv neg --> us abd shows borderline spleen enlargement # Acute versus chronic renal failure. as per renal etiology of acute renal failure is cardiorenal syndrome, prerenal azotemia versus unstable --> bp to improve on current meds --> nephro recs appreciated #. Coagulopathy with elevated inr --> recheck in future prn, now improved #. Congestive heart failure, but at this point the patient seems to be euvolemic. --> as per cardiology #. 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 #. Uncontrolled hypertension. --> now better #. Pleural eff s/p thora The timing of this note does not necessarily reflect the time of the patient was seen Greatly appreciate consultation! Subjective Constitutional: Denies: no symptoms, chills, diaphoresis, fever, malaise, weakness, other HEENT: Denies: no symptoms, eye pain, blurred vision, tearing, double vision, ear pain, ear discharge, nose pain, nose congestion, throat pain, throat swelling, mouth pain, mouth swelling, other Cardiovascular: Denies: no symptoms, chest pain, edema, irregular heart rate, lightheadedness, palpitations, syncope, other Respiratory: Denies: no symptoms, cough, orthopnea, shortness of breath, SOB with excertion, SOB at rest, sputum, stridor, wheezing, other Gastrointestinal/Abdominal: Denies: no symptoms, abdomen distended, abdominal pain, black stools, tarry stools, blood in stool, constipated, diarrhea, difficulty swallowing, nausea, poor appetite, poor fluid intake, rectal bleeding , vomiting, other Genitourinary: Denies: no symptoms, burning, discharge, frequency, flank pain, hematuria, incontinence, pain, urgency, other Neurologic/Psychiatric: Denies: no symptoms, anxiety, depressed, emotional problems, headache, numbness, paresthesia, pre-existing deficit, seizure, tingling, tremors, weakness, other Endocrine: Denies: no symptoms, excessive sweating, flushing, intolerance to cold, intolerance to heat, increased hunger, increased thirst, increased urine, unexplained weight gain, unexplained weight loss, other Hematologic/Lymphatic: Denies: no symptoms, anemia, easy bleeding, easy bruising, other Allergies: Coded Allergies: LISINOPRIL (Verified Allergy, Unknown, 07/16/18) LOSARTAN (Verified Allergy, Unknown, 07/16/18) Subjective 08/11/18: Pt is awake and resting in bed, denies acute distress, no events reported, cbc reviewed. 08/12/18: Pt is seen in the room, resting in bed, watching T.V, leukocytosis resolved,on pole framer machine 08/13/18:Pt is seen in the room, resting in bed, Aox3. plt 170 today, no events reported 08/14/18: no events overnight, no major changes noted, cr is higher 08/15/18: Pt is awake and calm, no major events , hgh remains low at 9 08/16: no events noted, h/h remains relatively stable, a+o x3, cbc reviewed 08/17: Pt is awake and resting in bed, will continue on Percocet, remains stable , cbc reviewed. Objective Last 24 Hour Vital Signs Date Time Temp Pulse Resp B/P (MAP) Pulse Ox O2 Delivery O2 Flow Rate FiO2 08/17/18 16:00 59 08/17/18 16:00 97.6 61 18 123/52 (75) 99 08/17/18 13:52 153/63 08/17/18 13:52 153/63 08/17/18 12:00 64 08/17/18 12:00 66 18 153/63 (93) 100 08/17/18 09:19 72 138/44 08/17/18 09:18 72 138/44 08/17/18 09:00 Room Air Room Air 08/17/18 08:30 72 17 Room Air 21 08/17/18 08:00 69 08/17/18 08:00 70 18 138/44 (75) 97 08/17/18 06:00 111/50 08/17/18 06:00 111/50 08/17/18 04:00 65 08/17/18 04:00 98.8 66 20 126/45 (72) 96 08/17/18 00:00 65 18 128/52 (77) 100 08/17/18 00:00 63 08/16/18 21:25 131/57 08/16/18 21:25 65 131/57 08/16/18 21:24 131/57 08/16/18 21:00 Room Air Room Air Intake and Output 08/16/18 08/17/18 19:00 07:00 Intake Total 360 ml Balance 360 ml Intake Oral 360 ml # Voids 1 Laboratory Tests 08/17/18 06:55: White Blood Count 7.2, Red Blood Count 2.83L, Hemoglobin 9.1L, Hematocrit 28.7L , Mean Corpuscular Volume 101H, Mean Corpuscular Hemoglobin 32.1H, Mean Corpuscular Hemoglobin Concent 31.7L, Red Cell Distribution Width 13.7, Platelet Count 167, Mean Platelet Volume 7.2, Neutrophils (%) (Auto) 74.7, Lymphocytes (%) (Auto) 14.4L, Monocytes (%) (Auto) 7.2, Eosinophils (%) (Auto) 3.2H, Basophils (%) (Auto) 0.5, Sodium Level 136, Potassium Level 4.6, Chloride Level 107, Carbon Dioxide Level 18L, Anion Gap 11, Blood Urea Nitrogen 56H, Creatinine 3.8H, Estimat Glomerular Filtration Rate 14.9, Glucose Level 215H, Calcium Level 8.5 08/17/18 09:50: Urine Eosinophils None seen, Urine Random Creatinine [Pending], Urine Random Microalbumin [Pending], Urine Random Total Protein 261H, Urine Random Sodium 38 , Urine Creatinine 95.2, Urine Microalbumin/Creatinine Ratio [Pending] Height (Feet): 5 Height (Inches): 2.00 Weight (Pounds): 165 Objective VITAL SIGNS: have been reviewed and are otherwise stable HEAD AND NECK: No JVP. No LAD. No thyromegaly. Extraocular movements intact. perrl LUNGS: Decreased breathing sounds on both sides. CARDIAC: Regular rate and rhythm. S1-S2. No murmur. No rub. ABDOMEN: Soft, nontender, and nondistended. EXTREMITIES: 1+ edema. No clubbing. No cyanosis. Amandeep Howell MD Aug 17, 2018 20:10
--- NOTE | 2018-08-17 20:43 | Cardiology Progress Note ---
Assessment/Plan Assessment/Plan 1. Accelerated hypertension, well controlled, continue hydralazine, carvedilol, amlodipine and clonidine. 2. Dyspnea most likely secondary to bilateral pleural effusion, status post right thoracentesis yielding about 500 mL of fluid. 2D echocardiography July 17, 2018 showed normal LV systolic and diastolic function with LVEF of approximately 55%. Continue IV antibiotics, pulmonary toilet, and diuretic therapy. 3. Moderate pulmonary hypertension. 4. Stage 5 CKD with small pericardial effusion. 5. Anemia, possible chronic kidney disease. 6. History of CVA with left hemiparesis, consider aspirin and statins. Subjective Subjective Sinus rhythm at rate of 61. FiO2 of 21% On room air. Objective Last 24 Hour Vital Signs Date Time Temp Pulse Resp B/P (MAP) Pulse Ox O2 Delivery O2 Flow Rate FiO2 08/17/18 20:00 61 08/17/18 16:00 59 08/17/18 16:00 97.6 61 18 123/52 (75) 99 08/17/18 13:52 153/63 08/17/18 13:52 153/63 08/17/18 12:00 64 08/17/18 12:00 66 18 153/63 (93) 100 08/17/18 09:19 72 138/44 08/17/18 09:18 72 138/44 08/17/18 09:00 Room Air Room Air 08/17/18 08:30 72 17 Room Air 21 08/17/18 08:00 69 08/17/18 08:00 70 18 138/44 (75) 97 08/17/18 06:00 111/50 08/17/18 06:00 111/50 08/17/18 04:00 65 08/17/18 04:00 98.8 66 20 126/45 (72) 96 08/17/18 00:00 65 18 128/52 (77) 100 08/17/18 00:00 63 08/16/18 21:25 131/57 08/16/18 21:25 65 131/57 08/16/18 21:24 131/57 08/16/18 21:00 Room Air Room Air Intake and Output 08/16/18 08/17/18 19:00 07:00 Intake Total 360 ml Balance 360 ml Intake Oral 360 ml # Voids 1 2D Echo: LVEF 65%, Mild MR, Normal LVD, RVSP 56mmHg Laboratory Tests Test 08/17/18 06:55 08/17/18 09:50 White Blood Count 7.2 K/UL (4.8-10.8) Red Blood Count 2.83 M/UL (4.20-5.40) L Hemoglobin 9.1 G/DL (12.0-16.0) L Hematocrit 28.7 % (37.0-47.0) L Mean Corpuscular Volume 101 FL (80-99) H Mean Corpuscular Hemoglobin 32.1 PG (27.0-31.0) H Mean Corpuscular Hemoglobin Concent 31.7 G/DL (32.0-36.0) L Red Cell Distribution Width 13.7 % (11.6-14.8) Platelet Count 167 K/UL (150-450) Mean Platelet Volume 7.2 FL (6.5-10.1) Neutrophils (%) (Auto) 74.7 % (45.0-75.0) Lymphocytes (%) (Auto) 14.4 % (20.0-45.0) L Monocytes (%) (Auto) 7.2 % (1.0-10.0) Eosinophils (%) (Auto) 3.2 % (0.0-3.0) H Basophils (%) (Auto) 0.5 % (0.0-2.0) Sodium Level 136 MMOL/L (136-145) Potassium Level 4.6 MMOL/L (3.5-5.1) Chloride Level 107 MMOL/L (98-107) Carbon Dioxide Level 18 MMOL/L (21-32) L Anion Gap 11 mmol/L (5-15) Blood Urea Nitrogen 56 mg/dL (7-18) H Creatinine 3.8 MG/DL (0.55-1.30) H Estimat Glomerular Filtration Rate 14.9 mL/min (>60) Glucose Level 215 MG/DL (74-106) H Calcium Level 8.5 MG/DL (8.5-10.1) Urine Eosinophils None seen (NONE SEEN) Urine Random Creatinine Pending Urine Random Microalbumin Pending Urine Random Total Protein 261 MG/DL (< 11.9) H Urine Random Sodium 38 mmol/L (20-110) Urine Creatinine 95.2 MG/DL (30.0-125.0) Urine Microalbumin/Creatinine Ratio Pending Objective HEENT: Atraumatic and normocephalic. Anicteric. Pupils are equal, round, and reactive to light and accommodation. Extraocular muscles intact. Poor dentition. NECK: JVP less than 5 cm. No carotid bruit. Carotid upstrokes 2+ bilaterally. LUNGS: Bilateral lower lung crackles. Diminished breath sounds on both lungs and the bases. CARDIOVASCULAR: Normal S1, S2. Regular rate and rhythm. No murmurs, gallops, or rubs. ABDOMEN: Soft, nontender, and nondistended. No hepatosplenomegaly. Positive bowel sounds. EXTREMITIES: No evidence of edema, clubbing, or cyanosis. Kwesi Zee MD Aug 17, 2018 20:43
[2018-08-17] MEDS: TraZODone 50mg tab ORAL SCH (21:07)
--- NOTE | 2018-08-17 23:33 | General Progress Note ---
Subjective Neurologic/Psychiatric: Reports: anxiety, depressed, emotional problems Allergies: Coded Allergies: LISINOPRIL (Verified Allergy, Unknown, 07/16/18) LOSARTAN (Verified Allergy, Unknown, 07/16/18) Objective Last 24 Hour Vital Signs Date Time Temp Pulse Resp B/P (MAP) Pulse Ox O2 Delivery O2 Flow Rate FiO2 08/17/18 22:53 139/56 08/17/18 22:53 139/56 08/17/18 21:24 75 17 Room Air 21 08/17/18 21:00 Room Air Room Air 08/17/18 20:00 98.5 60 18 139/57 (84) 100 08/17/18 20:00 61 08/17/18 16:00 59 08/17/18 16:00 97.6 61 18 123/52 (75) 99 08/17/18 13:52 153/63 08/17/18 13:52 153/63 08/17/18 12:00 64 08/17/18 12:00 66 18 153/63 (93) 100 08/17/18 09:19 72 138/44 08/17/18 09:18 72 138/44 08/17/18 09:00 Room Air Room Air 08/17/18 08:30 72 17 Room Air 21 08/17/18 08:00 69 08/17/18 08:00 70 18 138/44 (75) 97 08/17/18 06:00 111/50 08/17/18 06:00 111/50 08/17/18 04:00 65 08/17/18 04:00 98.8 66 20 126/45 (72) 96 08/17/18 00:00 65 18 128/52 (77) 100 08/17/18 00:00 63 Intake and Output 08/16/18 08/17/18 19:00 07:00 Intake Total 360 ml Balance 360 ml Intake Oral 360 ml # Voids 1 Laboratory Tests 08/17/18 06:55: White Blood Count 7.2, Red Blood Count 2.83L, Hemoglobin 9.1L, Hematocrit 28.7L , Mean Corpuscular Volume 101H, Mean Corpuscular Hemoglobin 32.1H, Mean Corpuscular Hemoglobin Concent 31.7L, Red Cell Distribution Width 13.7, Platelet Count 167, Mean Platelet Volume 7.2, Neutrophils (%) (Auto) 74.7, Lymphocytes (%) (Auto) 14.4L, Monocytes (%) (Auto) 7.2, Eosinophils (%) (Auto) 3.2H, Basophils (%) (Auto) 0.5, Sodium Level 136, Potassium Level 4.6, Chloride Level 107, Carbon Dioxide Level 18L, Anion Gap 11, Blood Urea Nitrogen 56H, Creatinine 3.8H, Estimat Glomerular Filtration Rate 14.9, Glucose Level 215H, Calcium Level 8.5 08/17/18 09:50: Urine Eosinophils None seen, Urine Random Creatinine [Pending], Urine Random Microalbumin [Pending], Urine Random Total Protein 261H, Urine Random Sodium 38 , Urine Creatinine 95.2, Urine Microalbumin/Creatinine Ratio [Pending] Height (Feet): 5 Height (Inches): 2.00 Weight (Pounds): 165 General Appearance: no apparent distress, alert Neurologic: oriented x 3, responsive, depressed affect Abhinav San MD Aug 17, 2018 23:33
[2018-08-18 04:00] VITALS: BP 160/68
[2018-08-18] MEDS: HydrALAZINE 50mg tab ORAL SCH ×3 (05:57→20:43)
--- NOTE | 2018-08-18 07:45 | NUR ---
NURSE NOTES: Received report from Charlene RN. Pt is awake, alert, oriented x4, resting in bed, with head of bed elevated to high llamas's position, breakfast tray in front of pt. Pt is on 2L of oxygen via nasal cannula with no respiratory distress. Reports generalized pain, will administer PRN pain med. IV access on right AC#20G, saline lock, patent/intact. Bedside commode setup. Skin is intact. Call light is placed within easy reach, bed in lowest position, three side rails up, brakes engaged, alarm on.
--- NOTE | 2018-08-18 07:50 | NUR ---
HAND-OFF: Report given to JENNIFER Amezquita. Pt. is in stable condition. Plan of care endorsed.
[2018-08-18] MEDS: Sodium Citrate 30ml ORAL SCH ×2 (09:04→17:12)
--- NOTE | 2018-08-18 09:04 | General Progress Note ---
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 D/w Dr. Hagen and he concurred. Subjective Date patient seen: Aug 18, 2018 Time patient seen: 08:00 - am Allergies: Coded Allergies: LISINOPRIL (Verified Allergy, Unknown, 07/16/18) LOSARTAN (Verified Allergy, Unknown, 07/16/18) Subjective REVIEW OF SYSTEMS: Denies rash, fever, chills, sweating, dizziness, drowsiness, blurred vision, sore throat, change in her weight. No shortness of breath at this time. No chest pain, palpitations, or cough. No nausea, vomiting, diarrhea, or blood in the stool or urine. No bowel or bladder incontinence. She is complaining of generalized body pain. SUBJECTIVE: Patient showing no signs of pain or distress at this time. She continues to c/o body pain which is severe at times. However her pain is tolerated on the Percocet haven taken 5 doses in the last 24hrs. Objective Last 24 Hour Vital Signs Date Time Temp Pulse Resp B/P (MAP) Pulse Ox O2 Delivery O2 Flow Rate FiO2 08/18/18 05:57 160/68 08/18/18 05:57 160/68 08/18/18 04:00 60 08/18/18 04:00 98.6 70 19 160/68 (98) 100 08/18/18 00:00 59 08/17/18 22:53 139/56 08/17/18 22:53 139/56 08/17/18 21:24 75 17 Room Air 21 08/17/18 21:00 Room Air Room Air 08/17/18 20:00 98.5 60 18 139/57 (84) 100 08/17/18 20:00 61 08/17/18 16:00 59 08/17/18 16:00 97.6 61 18 123/52 (75) 99 08/17/18 13:52 153/63 08/17/18 13:52 153/63 08/17/18 12:00 64 08/17/18 12:00 66 18 153/63 (93) 100 08/17/18 09:19 72 138/44 08/17/18 09:18 72 138/44 Intake and Output 08/17/18 08/18/18 19:00 07:00 Intake Total 240 ml 360 ml Output Total 200 ml 220 ml Balance 40 ml 140 ml Intake Oral 240 ml 360 ml Output Urine Total 200 ml 220 ml # Bowel Movements 1 2 Laboratory Tests 08/17/18 09:50: Urine Eosinophils None seen, Urine Random Creatinine [Pending], Urine Random Microalbumin [Pending], Urine Random Total Protein 261H, Urine Random Sodium 38 , Urine Creatinine 95.2, Urine Microalbumin/Creatinine Ratio [Pending] Height (Feet): 5 Height (Inches): 2.00 Weight (Pounds): 165 Objective GENERAL: Alert, awake, and oriented. LUNGS: Decreased breath sounds bilaterally. HEART: S1 and S2 regular. ABDOMEN: Benign. EXTREMITIES: No cyanosis. No clubbing. NEURO: No changes. Kwabena Verduzco Aug 18, 2018 09:04
[2018-08-18] MEDS: Carvedilol 12.5mg tab ORAL SCH ×2 (09:05→20:41)
[2018-08-18] MEDS: Heparin 5000 units/ml inj SUBQ SCH ×2 (09:06→20:50)
--- NOTE | 2018-08-18 09:35 | NUR ---
DISCHARGE PLANNING REFERRAL FAXED TO [facility] T: [phone] F: [phone]
[2018-08-18 12:00] VITALS: BP 147/63
--- NOTE | 2018-08-18 12:26 | General Progress Note ---
Assessment/Plan Problem List: (1) Acute on chronic renal failure ICD Codes: N17.9 - Acute kidney failure, unspecified; N18.9 - Chronic kidney disease, unspecified SNOMED: 506921186 Qualifiers: Qualified Codes: N17.9 - Acute kidney failure, unspecified; N18.9 - Chronic kidney disease, unspecified (2) Anemia ICD Codes: D64.9 - Anemia, unspecified SNOMED: 102840237 (3) Hypertension ICD Codes: I10 - Essential (primary) hypertension SNOMED: 83337086 (4) Diabetes mellitus ICD Codes: E11.9 - Type 2 diabetes mellitus without complications SNOMED: 06522686 Status: stable, progressing Assessment/Plan pulm tx prn bp bs control cbc bmp am dc w hh if clear Subjective Constitutional: Reports: weakness Allergies: Coded Allergies: LISINOPRIL (Verified Allergy, Unknown, 07/16/18) LOSARTAN (Verified Allergy, Unknown, 07/16/18) All Systems: reviewed and negative except above Subjective o2nc calm in bed Objective Last 24 Hour Vital Signs Date Time Temp Pulse Resp B/P (MAP) Pulse Ox O2 Delivery O2 Flow Rate FiO2 08/18/18 12:02 98.6 08/18/18 11:50 74 17 Room Air 21 08/18/18 11:31 77 17 Room Air 21 08/18/18 11:29 78 17 Room Air 21 08/18/18 09:05 60 160/68 08/18/18 09:05 60 160/68 08/18/18 05:57 160/68 08/18/18 05:57 160/68 08/18/18 04:00 60 08/18/18 04:00 98.6 70 19 160/68 (98) 100 08/18/18 00:00 59 08/17/18 22:53 139/56 08/17/18 22:53 139/56 08/17/18 21:24 75 17 Room Air 21 08/17/18 21:00 Room Air Room Air 08/17/18 20:00 98.5 60 18 139/57 (84) 100 08/17/18 20:00 61 08/17/18 16:00 59 08/17/18 16:00 97.6 61 18 123/52 (75) 99 08/17/18 13:52 153/63 08/17/18 13:52 153/63 Intake and Output 08/17/18 08/18/18 19:00 07:00 Intake Total 240 ml 360 ml Output Total 200 ml 220 ml Balance 40 ml 140 ml Intake Oral 240 ml 360 ml Output Urine Total 200 ml 220 ml # Bowel Movements 1 2 Height (Feet): 5 Height (Inches): 2.00 Weight (Pounds): 165 General Appearance: lethargic EENT: normal ENT inspection Neck: normal alignment Cardiovascular: normal peripheral pulses, normal rate, regular rhythm Respiratory/Chest: chest wall non-tender, decreased breath sounds Abdomen: normal bowel sounds, non tender, soft Extremities: normal inspection Edema: 1+ Arm (L), 1+ Arm (R), 1+ Leg (L), 1+ Leg (R), 1+ Pedal (L), 1+ Pedal ( R), 1+ Generalized Edema: trace edema Neurologic: responsive, motor weakness Skin: normal pigmentation, warm/dry Naun Geiger DO Aug 18, 2018 12:26
--- NOTE | 2018-08-18 12:43 | General Progress Note ---
Assessment/Plan Assessment/Plan #. Anemia of chronic disease - patient with ongoing kidney damage, cr is elevated approx 2-2.5 baseline --> anemia panel has reviewed, ferritin 222, has minimal iron depletion --> appreciate nephrology consult --> continue on epogen --> transfuse if hgb is <7 --> hemolysis w/u has been reviewed --> trend hgb 8.9-->8.4-->8.5-->10.7-->9-->9.1 --> ON EPO SQ AND IRON IV # Leukopenia wbc in the 4-6 range --> hepatitis panel negative, hiv neg --> us abd shows borderline spleen enlargement # Acute versus chronic renal failure. as per renal etiology of acute renal failure is cardiorenal syndrome, prerenal azotemia versus unstable --> bp to improve on current meds --> nephro recs appreciated #. Coagulopathy with elevated inr --> recheck in future prn, now improved #. Congestive heart failure, but at this point the patient seems to be euvolemic. --> as per cardiology #. 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 #. Uncontrolled hypertension. --> now better #. Pleural eff s/p thora The timing of this note does not necessarily reflect the time of the patient was seen Greatly appreciate consultation! Subjective Constitutional: Denies: no symptoms, chills, diaphoresis, fever, malaise, weakness, other HEENT: Denies: no symptoms, eye pain, blurred vision, tearing, double vision, ear pain, ear discharge, nose pain, nose congestion, throat pain, throat swelling, mouth pain, mouth swelling, other Cardiovascular: Denies: no symptoms, chest pain, edema, irregular heart rate, lightheadedness, palpitations, syncope, other Respiratory: Denies: no symptoms, cough, orthopnea, shortness of breath, SOB with excertion, SOB at rest, sputum, stridor, wheezing, other Gastrointestinal/Abdominal: Denies: no symptoms, abdomen distended, abdominal pain, black stools, tarry stools, blood in stool, constipated, diarrhea, difficulty swallowing, nausea, poor appetite, poor fluid intake, rectal bleeding , vomiting, other Genitourinary: Denies: no symptoms, burning, discharge, frequency, flank pain, hematuria, incontinence, pain, urgency, other Allergies: Coded Allergies: LISINOPRIL (Verified Allergy, Unknown, 07/16/18) LOSARTAN (Verified Allergy, Unknown, 07/16/18) Subjective 08/11/18: Pt is awake and resting in bed, denies acute distress, no events reported, cbc reviewed. 08/12/18: Pt is seen in the room, resting in bed, watching T.V, leukocytosis resolved,on engine monitor 08/13/18:Pt is seen in the room, resting in bed, Aox3. plt 170 today, no events reported 08/14/18: no events overnight, no major changes noted, cr is higher 08/15/18: Pt is awake and calm, no major events , hgh remains low at 9 08/16: no events noted, h/h remains relatively stable, a+o x3, cbc reviewed 08/17: Pt is awake and resting in bed, will continue on Percocet, remains stable , cbc reviewed. 08/18: continuing on percocet as per pain, otherwise no complaints, potential dc soon per pcp Objective Last 24 Hour Vital Signs Date Time Temp Pulse Resp B/P (MAP) Pulse Ox O2 Delivery O2 Flow Rate FiO2 08/18/18 12:02 98.6 08/18/18 11:50 74 17 Room Air 21 08/18/18 11:31 77 17 Room Air 21 08/18/18 11:29 78 17 Room Air 21 08/18/18 09:05 60 160/68 08/18/18 09:05 60 160/68 08/18/18 05:57 160/68 08/18/18 05:57 160/68 08/18/18 04:00 60 08/18/18 04:00 98.6 70 19 160/68 (98) 100 08/18/18 00:00 59 08/17/18 22:53 139/56 08/17/18 22:53 139/56 08/17/18 21:24 75 17 Room Air 21 08/17/18 21:00 Room Air Room Air 08/17/18 20:00 98.5 60 18 139/57 (84) 100 08/17/18 20:00 61 08/17/18 16:00 59 08/17/18 16:00 97.6 61 18 123/52 (75) 99 08/17/18 13:52 153/63 08/17/18 13:52 153/63 Intake and Output 08/17/18 08/18/18 19:00 07:00 Intake Total 240 ml 360 ml Output Total 200 ml 220 ml Balance 40 ml 140 ml Intake Oral 240 ml 360 ml Output Urine Total 200 ml 220 ml # Bowel Movements 1 2 Height (Feet): 5 Height (Inches): 2.00 Weight (Pounds): 165 Objective VITAL SIGNS: have been reviewed and are otherwise stable HEAD AND NECK: No JVP. No LAD. No thyromegaly. Extraocular movements intact. perrl LUNGS: Decreased breathing sounds on both sides. CARDIAC: Regular rate and rhythm. S1-S2. No murmur. No rub. ABDOMEN: Soft, nontender, and nondistended. EXTREMITIES: 1+ edema. No clubbing. No cyanosis. Amandeep Howell MD Aug 18, 2018 12:43
--- NOTE | 2018-08-18 13:01 | NUR ---
ST NOTE: ST WEEKLY AND SWALLOW STATUS: ST WEEKLY: PT PARTIALLY MET PO INTAKE GOALS, PT MET ASPIRATION PRECAUTIONS GOALS. NURSING STAFF MET ASPIRATION PRECAUTIONS GOALS. VIDEOSWALLOW STUDY IS RECOMMENDED, HOWEVER, PT REFUSED. CONTINUE SKILLED ST SERVICE. CURRENT STATUS: PT SEEN AT BEDSIDE IN LATE AM. ALERT, COOPERATIVE, VERBAL, FOLLOWS DIRECTIONS. PT IS ON NC(2L) DISCUSSED WITH PT RE: ASPIRATION PRECAUTIONS. PER PT, SHE HAS BEEN TAKING SMALL BITES/SIPS WHEN EATING/DRINKING. POOR DENTAL NOTED GIVEN THIN LIQUIDS VIA CUP-SELF, MILD INCREASED ORAL TRANSIT TIME AND OROPHARYNGEAL TRANSIT TIME, FAIR TO GOOD LARYNGEAL ELEVATION, NO OVERT S/S OF ASPIRATION. DISCUSSED AND EDUCATED PT RE: ASPIRATION PRECAUTIONS AND VIDEOSWALLOW STUDY. PT VERBALIZED THE GOOD UNDERSTANDING OF INFO GIVEN. VIDEOSWALLOW STUDY ONLY IF PT IS WILLING TO PARTICIPATE IP OR OP. D/W RNDINO RE:PT'S CONDITIONS
--- NOTE | 2018-08-18 13:24 | NUR ---
DISCHARGE PLANNING RE[facility]IV[facility] ARE NOT CONTRACTED WITH [facility] ISOTOPE HYDROLOGIST HAS NOW FAXED TO [employer] T: [phone] F: [phone] Addendum: 08/18/18 at 1543 by BRITTANY CASTANON LVN LVN RECEIVED CALL FROM CARTER MELENDREZ [facility] IS REQUESTING THIS ISOTOPE HYDROLOGIST OBTAIN AUTHORIZATION FROM [facility] FOR THE OXYGEN(ISOTOPE HYDROLOGIST IS WAITING FOR A CALL BACK FROM [facility] ISOTOPE HYDROLOGIST) [facility] IS ALSO REQUESTING A MD SIGNED ORDER FOR OXYGEN THAT SHOULD READ O2/2L/NC CONTINUOUSLY PORTABLE AND CONCENTRATOR FOR HOME USE PORTABLE NEDS TO BE DELIVERED TO HOSPITAL BEFORE PATIENT CAN BE DISCHARGED Addendum: 08/18/18 at 1604 by BRITTANY CASTNAON LVN LVN SPOKE WITH [facility] ISOTOPE HYDROLOGIST DIONTE WHO HAS NOW REQUESTED THIS ISOTOPE HYDROLOGIST REFER PATIENT TO [facility] FOR THE OXYGEN CALLED [facility] AND SPOKE WITH STACEY. FAXED REFERAL TO [facility]
--- NOTE | 2018-08-18 14:30 | NUR ---
NURSE NOTES: Oxygen saturation was checked while pt on room air, desaturated to 88% on room air. Pt was placed back on oxygen via nasal cannula on 2L, oxygen level was raised 97%.
--- NOTE | 2018-08-18 15:44 | Pulmonology Progress Note ---
Assessment/Plan Assessment/Plan ASSESSMENT: The patient is a 53-year-old female, history of solitary kidney, CKD stage 4, hypertension, hyperlipidemia, prior admission with pleural effusions likely congestive heart failure, and anemia presenting with shortness of breath likely decompensated heart failure. The patient does not clinically appear infected, is afebrile, has only a mild leukocytosis. She is being treated for possible pneumonia with Rocephin under the care of the Infectious Disease service. PROBLEM LIST: 1. Hypoxemia. 2. Questionable history of asthma. 3. CHF with DD 4. Prior CT scan 07/19/2018 with evidence of mediastinal, hilar, and axillary lymphadenopathy. 5. History of transudative pleural effusion. 6. Pulmonary hypertension. 7. MICHELLE on CKD with METABOLIC ACIDOSIS 8. Edema. 9. Prior CVA. 10. Elevated RF with neg CCP TREATMENT PLAN: LIMITED PH WORK UP: CHIDI, VQ (REFUSED), SEROLOGIES NOTED Consideration for RHC, would be very helpful in determining PA pressure and volume management (declines) Monitor volumes and renal function, F/U renal recs, continue BICITRA --- > PATIENT STATES SHE IS AMENABLE NOW ---> D/W Dr. Park Optimize pulmonary hygiene/mobilize as tolerated. Titrate FiO2 to keep saturations greater than 90%. PRN bronchodilators. CT chest with minimal GGO's and non-specific LAD --> REPEAT PLEURAL FLUID CYTOLOGY SHORT INTERVAL REPEAT IMAGING AN OUTPATIENT WITH CONSIDERATION OF EBUS VS MEDIASTINOSCOPY Observe off Antibiotics per ID. Aspiration precautions. MANAGER INTERNAL recs, VSS (refused) DVT prophylaxis heparin subcutaneous. The patient should have outpatient pulmonary workup including full PFTs and PSG Subjective Allergies: Coded Allergies: LISINOPRIL (Verified Allergy, Unknown, 07/16/18) LOSARTAN (Verified Allergy, Unknown, 07/16/18) Subjective More edematous no labs today + SOB + QUIROGA no CP no F/C States she is amenable to HD Objective Last 24 Hour Vital Signs Date Time Temp Pulse Resp B/P (MAP) Pulse Ox O2 Delivery O2 Flow Rate FiO2 08/18/18 14:58 147/63 08/18/18 14:58 147/63 08/18/18 12:02 98.6 08/18/18 11:50 74 17 Room Air 21 08/18/18 11:31 77 17 Room Air 21 08/18/18 11:29 78 17 Room Air 21 08/18/18 09:05 60 160/68 08/18/18 09:05 60 160/68 08/18/18 09:00 Room Air Room Air 08/18/18 07:38 79 08/18/18 05:57 160/68 08/18/18 05:57 160/68 08/18/18 04:00 60 08/18/18 04:00 98.6 70 19 160/68 (98) 100 08/18/18 00:00 59 08/17/18 22:53 139/56 08/17/18 22:53 139/56 08/17/18 21:24 75 17 Room Air 21 08/17/18 21:00 Room Air Room Air 08/17/18 20:00 98.5 60 18 139/57 (84) 100 08/17/18 20:00 61 08/17/18 16:00 59 08/17/18 16:00 97.6 61 18 123/52 (75) 99 Intake and Output 08/17/18 08/18/18 19:00 07:00 Intake Total 240 ml 360 ml Output Total 200 ml 220 ml Balance 40 ml 140 ml Intake Oral 240 ml 360 ml Output Urine Total 200 ml 220 ml # Bowel Movements 1 2 General Appearance: no acute distress, cachetic HEENT: normocephalic, atraumatic, anicteric, other - JVD Respiratory/Chest: crackles/rales Cardiovascular: normal peripheral pulses, normal rate, regular rhythm Abdomen: normal bowel sounds, soft, non tender, no organomegaly, non distended , no mass Extremities: no cyanosis, no clubbing, other - 3+SANTOS Current Medications Medications (Trade) Dose Ordered Sig/Zara Route PRN Reason Start Time Stop Time Status Last Admin Dose Admin Acetaminophen (Tylenol) 650 mg Q4H PRN ORAL Mild Pain/Temp > 100.5 08/09/18 12:15 09/08/18 12:14 Albuterol/ Ipratropium (Albuterol/ Ipratropium) 3 ml Q4H PRN HHN Shortness of Breath 08/15/18 16:00 08/20/18 15:59 Amlodipine Besylate (Norvasc) 10 mg DAILY ORAL 08/10/18 09:00 09/09/18 08:59 08/18/18 09:05 Atorvastatin Calcium (Lipitor) 10 mg BEDTIME ORAL 08/09/18 21:00 09/08/18 20:59 08/17/18 21:07 Carvedilol (Coreg) 37.5 mg EVERY 12 HOURS ORAL 08/09/18 21:00 09/08/18 20:59 08/18/18 09:05 Clonidine HCl (Catapres Tab) 0.1 mg EVERY 8 HOURS ORAL 08/10/18 22:00 09/09/18 21:59 08/18/18 14:58 Clopidogrel Bisulfate (Plavix) 75 mg DAILY ORAL 08/10/18 09:00 09/09/18 08:59 08/18/18 09:04 Epoetin Yordan (Procrit (for non ESRD use)) 5,000 units TUE-TUE-TUE SUBQ 08/11/18 21:00 09/10/18 20:59 08/16/18 21:25 Gabapentin (Neurontin) 300 mg Q12HR ORAL 08/09/18 21:00 09/08/18 20:59 08/18/18 09:04 Heparin Sodium (Porcine) (Heparin 5000 units/ml) 5,000 units EVERY 12 HOURS SUBQ 08/09/18 21:00 09/08/18 20:59 08/18/18 09:06 Hydralazine HCl (Apresoline) 100 mg Q8HR ORAL 08/10/18 14:00 09/09/18 13:59 08/18/18 14:58 Minoxidil (Loniten) 2.5 mg Q4H PRN ORAL sbp> 165 08/09/18 12:15 09/08/18 12:14 08/11/18 00:00 Mirtazapine (Remeron) 7.5 mg BEDTIME ORAL 08/09/18 21:00 09/08/18 20:59 08/17/18 21:07 Nateglinide (Starlix) 120 mg TIAC ORAL 08/09/18 16:30 09/08/18 16:29 08/18/18 11:32 Ondansetron HCl (Zofran) 4 mg Q6H PRN IVP Nausea & Vomiting 08/09/18 12:15 09/08/18 12:14 Oxycodone/ Acetaminophen (Percocet 10/325) 1 tab Q4H PRN ORAL moderate-severe (4-10) pain 08/15/18 08:55 08/22/18 08:54 08/18/18 11:32 Pantoprazole (Protonix) 40 mg DAILY ORAL 08/10/18 09:00 09/09/18 08:59 08/18/18 09:04 Polyethylene Glycol (Miralax) 17 gm DAILYPRN PRN ORAL Constipation 08/09/18 12:15 09/08/18 12:14 Sodium Citrate (Bicitra) 30 ml BID ORAL 08/11/18 18:00 09/10/18 17:59 08/18/18 09:04 Trazodone HCl (Desyrel) 50 mg BEDTIME ORAL 08/09/18 21:00 09/08/18 20:59 08/17/18 21:07 Kevin Gutiérrez MD Aug 18, 2018 15:44
[2018-08-18 16:00] VITALS: BP 130/61
--- NOTE | 2018-08-18 16:18 | NUR ---
INSURANCE FAXED ALL REVIEWS AND CLINICALS TO [place] [facility] T: [phone] [id number] F: [phone]
--- NOTE | 2018-08-18 17:00 | NUR ---
NURSE NOTES: DC plan on hold pending case management to obtain portable oxygen for pt to go home with. Order for transfer to med-surg in place. Charge nurse updated/made aware.
[2018-08-18 19:14] LABS: ALANINE AMINOTRANSFERASE 36 U/L (12-78); ALBUMIN 2.2 G/DL (3.4-5.0); ALBUMIN/GLOBULIN RATIO 0.6 (1.0-2.7); ALKALINE PHOSPHATASE 89 U/L (46-116); ANION GAP 12 mmol/L (5-15); ASPARTATE AMINO TRANSFERASE 15 U/L (15-37); BILIRUBIN,TOTAL 0.3 MG/DL (0.2-1.0); BLOOD UREA NITROGEN 60 mg/dL (7-18); CALCIUM 8.2 MG/DL (8.5-10.1); CARBON DIOXIDE 17 MMOL/L (21-32); CHLORIDE 106 MMOL/L (98-107); CREATININE 3.7 MG/DL (0.55-1.30); POTASSIUM 4.9 MMOL/L (3.5-5.1); SODIUM 135 MMOL/L (136-145)
--- NOTE | 2018-08-18 19:24 | Cardiology Progress Note ---
Assessment/Plan Assessment/Plan 1. Accelerated hypertension, well controlled, continue hydralazine, carvedilol, amlodipine and clonidine. 2. Dyspnea most likely secondary to bilateral pleural effusion, status post right thoracentesis yielding about 500 mL of fluid. 2D echocardiography July 17, 2018 showed normal LV systolic and diastolic function with LVEF of approximately 55%. Continue IV antibiotics, pulmonary toilet, and diuretic therapy. 3. Moderate pulmonary hypertension likely due to ESRD. 4. Stage 5 CKD with small pericardial effusion. 5. Anemia, possible chronic kidney disease. 6. History of CVA with left hemiparesis, consider aspirin and statins. Subjective Subjective Sinus rhythm at rate of 67. FiO2 of 21% On room air. Objective Last 24 Hour Vital Signs Date Time Temp Pulse Resp B/P (MAP) Pulse Ox O2 Delivery O2 Flow Rate FiO2 08/18/18 17:42 98.6 08/18/18 16:00 98.9 67 19 130/61 (84) 90 08/18/18 14:58 147/63 08/18/18 14:58 147/63 08/18/18 12:00 99.1 91 18 147/63 (91) 98 08/18/18 11:50 74 17 Room Air 21 08/18/18 11:31 77 17 Room Air 21 08/18/18 11:29 78 17 Room Air 21 08/18/18 09:05 60 160/68 08/18/18 09:05 60 160/68 08/18/18 09:00 Room Air Room Air 08/18/18 07:38 79 08/18/18 05:57 160/68 08/18/18 05:57 160/68 08/18/18 04:00 60 08/18/18 04:00 98.6 70 19 160/68 (98) 100 08/18/18 00:00 59 08/17/18 22:53 139/56 08/17/18 22:53 139/56 08/17/18 21:24 75 17 Room Air 21 08/17/18 21:00 Room Air Room Air 08/17/18 20:00 98.5 60 18 139/57 (84) 100 08/17/18 20:00 61 Intake and Output 08/17/18 08/18/18 18:59 06:59 Intake Total 240 ml 360 ml Output Total 200 ml 220 ml Balance 40 ml 140 ml Intake Oral 240 ml 360 ml Output Urine Total 200 ml 220 ml # Bowel Movements 1 2 2D Echo: LVEF 65%, Mild MR, Normal LVD, RVSP 56mmHg Laboratory Tests Test 08/18/18 18:15 Sodium Level Pending Potassium Level Pending Chloride Level Pending Carbon Dioxide Level Pending Blood Urea Nitrogen Pending Creatinine Pending Estimat Glomerular Filtration Rate Pending Glucose Level Pending Calcium Level Pending Total Bilirubin Pending Aspartate Amino Transf (AST/SGOT) Pending Alanine Aminotransferase (ALT/SGPT) Pending Alkaline Phosphatase Pending Total Protein Pending Albumin Pending Globulin Pending Objective HEENT: Atraumatic and normocephalic. Anicteric. Pupils are equal, round, and reactive to light and accommodation. Extraocular muscles intact. Poor dentition. NECK: JVP less than 5 cm. No carotid bruit. Carotid upstrokes 2+ bilaterally. LUNGS: Bilateral lower lung crackles. Diminished breath sounds on both lungs and the bases. CARDIOVASCULAR: Normal S1, S2. Regular rate and rhythm. No murmurs, gallops, or rubs. ABDOMEN: Soft, nontender, and nondistended. No hepatosplenomegaly. Positive bowel sounds. EXTREMITIES: No evidence of edema, clubbing, or cyanosis. Kwesi Zee MD Aug 18, 2018 19:24
--- NOTE | 2018-08-18 19:39 | NUR ---
HAND-OFF: Report given to Karen RODRIGUEZ. Pt is resting in bed in stable condition. Endorsed plan of care.
--- NOTE | 2018-08-18 19:55 | NUR ---
NURSE NOTES: Received pt from JENNIFER Amezquita. Pt awake, and alert. Bed in the lowest position. Call light within reach. Will continue to monitor.
[2018-08-18 20:00] VITALS: BP 146/65
[2018-08-18 20:34] VITALS: BP 125/76
[2018-08-18] MEDS: TraZODone 50mg tab ORAL SCH (20:41)
[2018-08-18] MEDS: Epogen (for non ESRD use) SUBQ SCH (20:42)
[2018-08-19] VITALS: BP 156/84
[2018-08-19 04:00] VITALS: BP 138/52
[2018-08-19] MEDS: HydrALAZINE 50mg tab ORAL SCH ×3 (06:03→21:27)
[2018-08-19 07:36] LABS: BASOPHILS % (AUTO) 0.3 % (0.0-2.0); EOSINOPHILS % (AUTO) 0.8 % (0.0-3.0); HEMATOCRIT 25.6 % (37.0-47.0); HEMOGLOBIN 8.2 G/DL (12.0-16.0); LYMPHOCYTES % (AUTO) 10.1 % (20.0-45.0); MEAN CORPUSCULAR VOLUME 101 FL (80-99); MONOCYTES % (AUTO) 5.9 % (1.0-10.0); PLATELET COUNT 192 K/UL (150-450); RED BLOOD COUNT 2.54 M/UL (4.20-5.40); WHITE BLOOD COUNT 9.3 K/UL (4.8-10.8)
[2018-08-19 07:52] LABS: ANION GAP 11 mmol/L (5-15); BLOOD UREA NITROGEN 59 mg/dL (7-18); CALCIUM 8.4 MG/DL (8.5-10.1); CARBON DIOXIDE 19 MMOL/L (21-32); CHLORIDE 106 MMOL/L (98-107); CREATININE 3.6 MG/DL (0.55-1.30); POTASSIUM 4.6 MMOL/L (3.5-5.1); SODIUM 136 MMOL/L (136-145)
--- NOTE | 2018-08-19 07:52 | Nephrology Progress Note ---
Assessment/Plan Assessment/Plan A/P 1) HTN Urgency- BP improved - continue to monitor and adjust 2) MICHELLE on CKD 5- AM labs pending. May require HD for volume and uremia control - renal US ordered 3) Anasarca- await AM labs. Diuresis vs UF with HD 4) Anemia CKD- Iron + EPO 5) Met Acidosis- secondary RI. On Bicitra. If continues to worsen will initiate HD Subjective Date patient seen: Aug 19, 2018 Time patient seen: 07:48 ROS Limited/Unobtainable: No Constitutional: Reports: malaise, weakness Allergies: Coded Allergies: LISINOPRIL (Verified Allergy, Unknown, 07/16/18) LOSARTAN (Verified Allergy, Unknown, 07/16/18) All Systems: reviewed and negative except above Subjective Patient fatigued and malaised. No CP or SOB Objective Last 24 Hour Vital Signs Date Time Temp Pulse Resp B/P (MAP) Pulse Ox O2 Delivery O2 Flow Rate FiO2 08/19/18 06:40 100.0 08/19/18 06:03 138/52 08/19/18 04:37 100.0 08/19/18 04:00 100.0 67 18 138/52 (80) 96 08/19/18 00:00 99.7 67 19 156/84 (108) 95 08/18/18 21:00 Room Air Room Air 08/18/18 20:43 125/76 08/18/18 20:41 67 125/76 08/18/18 20:34 67 125/76 (92) 08/18/18 20:00 98.4 63 19 146/65 (92) 97 08/18/18 19:58 78 18 Room Air 21 08/18/18 16:00 98.9 67 19 130/61 (84) 90 08/18/18 14:58 147/63 08/18/18 14:58 147/63 08/18/18 12:00 99.1 91 18 147/63 (91) 98 08/18/18 11:50 74 17 Room Air 21 08/18/18 11:31 77 17 Room Air 21 08/18/18 11:29 78 17 Room Air 21 08/18/18 09:05 60 160/68 08/18/18 09:05 60 160/68 08/18/18 09:00 Room Air Room Air Intake and Output 08/18/18 08/19/18 19:00 07:00 Intake Total 480 ml Balance 480 ml Intake Oral 480 ml # Voids 1 1 # Bowel Movements 1 1 Laboratory Tests 08/18/18 18:15: Sodium Level 135L, Potassium Level 4.9, Chloride Level 106, Carbon Dioxide Level 17L, Anion Gap 12, Blood Urea Nitrogen 60H, Creatinine 3.7H, Estimat Glomerular Filtration Rate 15.4, Glucose Level 348#H, Calcium Level 8.2L, Total Bilirubin 0.3, Aspartate Amino Transf (AST/SGOT) 15, Alanine Aminotransferase ( ALT/SGPT) 36, Alkaline Phosphatase 89, Total Protein 6.0L, Albumin 2.2L, Globulin 3.8, Albumin/Globulin Ratio 0.6L 08/19/18 06:45: Sodium Level [Pending], Potassium Level [Pending], Chloride Level [Pending], Carbon Dioxide Level [Pending], Blood Urea Nitrogen [Pending], Creatinine [ Pending], Estimat Glomerular Filtration Rate [Pending], Glucose Level [Pending] , Calcium Level [Pending], White Blood Count 9.3, Red Blood Count 2.54L, Hemoglobin 8.2L, Hematocrit 25.6L, Mean Corpuscular Volume 101H, Mean Corpuscular Hemoglobin 32.5H, Mean Corpuscular Hemoglobin Concent 32.3, Red Cell Distribution Width 13.0, Platelet Count 192, Mean Platelet Volume 7.5, Neutrophils (%) (Auto) 83.0H, Lymphocytes (%) (Auto) 10.1L, Monocytes (%) (Auto ) 5.9, Eosinophils (%) (Auto) 0.8, Basophils (%) (Auto) 0.3 Height (Feet): 5 Height (Inches): 2.00 Weight (Pounds): 165 General Appearance: no apparent distress, lethargic EENT: normal ENT inspection, TMs normal Neck: normal alignment, supple Cardiovascular: normal rate, regular rhythm Respiratory/Chest: rhonchi - bilaterally Abdomen: non tender, soft Edema: 2+ Arm (L), 2+ Arm (R), 2+ Leg (L), 2+ Leg (R), 2+ Pedal (L), 2+ Pedal ( R), 2+ Generalized Mingo Man MD Aug 19, 2018 07:52
--- NOTE | 2018-08-19 07:59 | NUR ---
HAND-OFF: Report given to JENNIFER Justin.
[2018-08-19 08:00] VITALS: BP 127/54
--- NOTE | 2018-08-19 08:00 | NUR ---
NURSE NOTES: Received bedside report from Karen RODRIGUEZ. Pt. in bed, asleep but arousable. No sign of distress. On O2 at 2LPM via NC. No grimacing noted. IV line at right AC #20g. SL. Bed in low position, locked. Call light within reach. Will cont. to monitor.
--- NOTE | 2018-08-19 09:20 | General Progress Note ---
Assessment/Plan Problem List: (1) Acute on chronic renal failure ICD Codes: N17.9 - Acute kidney failure, unspecified; N18.9 - Chronic kidney disease, unspecified SNOMED: 452632835 Qualifiers: Qualified Codes: N17.9 - Acute kidney failure, unspecified; N18.9 - Chronic kidney disease, unspecified (2) Anemia ICD Codes: D64.9 - Anemia, unspecified SNOMED: 785946262 (3) Hypertension ICD Codes: I10 - Essential (primary) hypertension SNOMED: 19108567 (4) Diabetes mellitus ICD Codes: E11.9 - Type 2 diabetes mellitus without complications SNOMED: 50252403 Status: unchanged Assessment/Plan pulm tx prn bp bs control cbc bmp am dc w hh if clear Subjective Constitutional: Reports: weakness Allergies: Coded Allergies: LISINOPRIL (Verified Allergy, Unknown, 07/16/18) LOSARTAN (Verified Allergy, Unknown, 07/16/18) All Systems: reviewed and negative except above Subjective o2nc calm in bed Objective Last 24 Hour Vital Signs Date Time Temp Pulse Resp B/P (MAP) Pulse Ox O2 Delivery O2 Flow Rate FiO2 08/19/18 08:00 98.7 59 18 127/54 (78) 99 08/19/18 06:40 100.0 08/19/18 06:03 138/52 08/19/18 04:37 100.0 08/19/18 04:00 100.0 67 18 138/52 (80) 96 08/19/18 00:00 99.7 67 19 156/84 (108) 95 08/18/18 21:00 Room Air Room Air 08/18/18 20:43 125/76 08/18/18 20:41 67 125/76 08/18/18 20:34 67 125/76 (92) 08/18/18 20:00 98.4 63 19 146/65 (92) 97 08/18/18 19:58 78 18 Room Air 21 08/18/18 16:00 98.9 67 19 130/61 (84) 90 08/18/18 14:58 147/63 08/18/18 14:58 147/63 08/18/18 12:00 99.1 91 18 147/63 (91) 98 08/18/18 11:50 74 17 Room Air 21 08/18/18 11:31 77 17 Room Air 21 08/18/18 11:29 78 17 Room Air 21 Intake and Output 08/18/18 08/19/18 19:00 07:00 Intake Total 480 ml Balance 480 ml Intake Oral 480 ml # Voids 1 1 # Bowel Movements 1 1 Laboratory Tests 08/18/18 18:15: Sodium Level 135L, Potassium Level 4.9, Chloride Level 106, Carbon Dioxide Level 17L, Anion Gap 12, Blood Urea Nitrogen 60H, Creatinine 3.7H, Estimat Glomerular Filtration Rate 15.4, Glucose Level 348#H, Calcium Level 8.2L, Total Bilirubin 0.3, Aspartate Amino Transf (AST/SGOT) 15, Alanine Aminotransferase ( ALT/SGPT) 36, Alkaline Phosphatase 89, Total Protein 6.0L, Albumin 2.2L, Globulin 3.8, Albumin/Globulin Ratio 0.6L 08/19/18 06:45: Sodium Level 136, Potassium Level 4.6, Chloride Level 106, Carbon Dioxide Level 19L, Anion Gap 11, Blood Urea Nitrogen 59H, Creatinine 3.6H, Estimat Glomerular Filtration Rate 15.9, Glucose Level 214#H, Calcium Level 8.4L, White Blood Count 9.3, Red Blood Count 2.54L, Hemoglobin 8.2L, Hematocrit 25.6L, Mean Corpuscular Volume 101H, Mean Corpuscular Hemoglobin 32.5H, Mean Corpuscular Hemoglobin Concent 32.3, Red Cell Distribution Width 13.0, Platelet Count 192, Mean Platelet Volume 7.5, Neutrophils (%) (Auto) 83.0H, Lymphocytes (%) (Auto) 10.1L, Monocytes (%) (Auto) 5.9, Eosinophils (%) (Auto) 0.8, Basophils (%) (Auto ) 0.3 Height (Feet): 5 Height (Inches): 2.00 Weight (Pounds): 165 General Appearance: lethargic EENT: normal ENT inspection Neck: normal alignment Cardiovascular: normal peripheral pulses, normal rate, regular rhythm Respiratory/Chest: chest wall non-tender, decreased breath sounds Abdomen: normal bowel sounds, non tender, soft Extremities: normal inspection Edema: 1+ Arm (L), 1+ Arm (R), 1+ Leg (L), 1+ Leg (R), 1+ Pedal (L), 1+ Pedal ( R), 1+ Generalized Edema: trace edema Neurologic: motor weakness Skin: normal pigmentation, warm/dry Naun Geiger DO Aug 19, 2018 09:20
[2018-08-19] MEDS: Sodium Citrate 30ml ORAL SCH ×2 (09:28→18:00)
[2018-08-19] MEDS: Carvedilol 12.5mg tab ORAL SCH ×2 (09:29→21:26)
[2018-08-19] MEDS: Heparin 5000 units/ml inj SUBQ SCH ×2 (09:31→21:29)
[2018-08-19 12:00] VITALS: BP 119/54
--- NOTE | 2018-08-19 15:26 | Diagnostic Imaging Report ---
ADDENDUM - Added by Luis Thurston MD on 08/19/2018 3:27 PM (-08:00) Examination was a renal ultrasound not abdominal ultrasound. The only structures visualized and evaluated were the right kidney and the urinary bladder. The right kidney appears unremarkable. Left kidney is nonvisualized, which correlates with given history of renal agenesis. Urinary bladder has prevoid volume of 762 cc and postvoid volume of 443 cc. EXAM: US Abdomen Complete CLINICAL HISTORY: Increasing renal function tests. History of chronic kidney disease, diabetes, hypertension. 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 TECHNIQUE: Real-time ultrasound of the abdomen (complete) with image documentation. COMPARISON: No relevant prior studies available. FINDINGS: Liver: Unremarkable. No parenchymal lesions. No intrahepatic bile duct dilation. Gallbladder: Unremarkable. No gallstones. No wall thickening. No pericholecystic fluid. Common bile duct: Unremarkable as visualized. No stones. No dilation. Pancreas: Unremarkable as visualized. Pancreatic body and tail are obscured by bowel gas. Kidneys: Left kidney is not visualized. The right kidney measures 12. 8 x 3.0 x 5.4 cm. Normal cortical thickness. No visible parenchymal lesions. No visible stones. No hydronephrosis. Spleen: Unremarkable. No splenomegaly. Aorta: Unremarkable. Visualized portions appear unremarkable without evidence of aneurysm. Inferior vena cava: Unremarkable. Other findings: The urinary bladder has a prevoid volume of 762 cc. Postvoid volume of 143 cc IMPRESSION: Left kidney is not visualized. This correlates with the patient's stated history of left renal agenesis. Right kidney appears unremarkable without hydronephrosis. [employer] 08/19/18 15:33 Verify Receipt Verified receipt with JENNIFER Sherwood on Telemetry on 08/19 15:32 (-08:00)
--- NOTE | 2018-08-19 15:27 | General Progress Note ---
Assessment/Plan Assessment/Plan #. Anemia of chronic disease - patient with ongoing kidney damage, cr is elevated approx 2-2.5 baseline, now 3-4 range --> anemia panel has reviewed, ferritin 222, has minimal iron depletion --> appreciate nephrology consult --> continue on epogen --> transfuse if hgb is <7 --> hemolysis w/u has been reviewed --> trend hgb 8.9-->8.4-->8.5-->10.7-->9-->9.1-->8.2 --> ON EPO SQ AND IRON IV # Leukopenia wbc in the 4-6 range --> hepatitis panel negative, hiv neg --> us abd shows borderline spleen enlargement # Acute versus chronic renal failure. as per renal etiology of acute renal failure is cardiorenal syndrome, prerenal azotemia versus unstable --> bp to improve on current meds --> nephro recs appreciated #. Coagulopathy with elevated inr --> recheck in future prn, now improved #. CHF, but at this point the patient seems to be euvolemic. --> as per cardiology #. 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 #. Uncontrolled hypertension. --> now better #. Pleural eff s/p thora The timing of this note does not necessarily reflect the time of the patient was seen Greatly appreciate consultation! Subjective Constitutional: Denies: no symptoms, chills, diaphoresis, fever, malaise, weakness, other HEENT: Denies: no symptoms, eye pain, blurred vision, tearing, double vision, ear pain, ear discharge, nose pain, nose congestion, throat pain, throat swelling, mouth pain, mouth swelling, other Cardiovascular: Denies: no symptoms, chest pain, edema, irregular heart rate, lightheadedness, palpitations, syncope, other Genitourinary: Denies: no symptoms, burning, discharge, frequency, flank pain, hematuria, incontinence, pain, urgency, other Endocrine: Denies: no symptoms, excessive sweating, flushing, intolerance to cold, intolerance to heat, increased hunger, increased thirst, increased urine, unexplained weight gain, unexplained weight loss, other Hematologic/Lymphatic: Denies: no symptoms, anemia, easy bleeding, easy bruising, other Allergies: Coded Allergies: LISINOPRIL (Verified Allergy, Unknown, 12/9/18) LOSARTAN (Verified Allergy, Unknown, 07/16/18) Subjective 08/11/18: Pt is awake and resting in bed, denies acute distress, no events reported, cbc reviewed. 08/12/18: Pt is seen in the room, resting in bed, watching T.V, leukocytosis resolved,on diagnostic cardiac sonographer 08/13/18:Pt is seen in the room, resting in bed, Aox3. plt 170 today, no events reported 08/14/18: no events overnight, no major changes noted, cr is higher 08/15/18: Pt is awake and calm, no major events , hgh remains low at 9 08/16: no events noted, h/h remains relatively stable, a+o x3, cbc reviewed 08/17: Pt is awake and resting in bed, will continue on Percocet, remains stable , cbc reviewed. 08/18: continuing on percocet as per pain, otherwise no complaints, potential dc soon per pcp 08/19: no events to report, no fevers or chills, hgb 8.2 Objective Last 24 Hour Vital Signs Date Time Temp Pulse Resp B/P (MAP) Pulse Ox O2 Delivery O2 Flow Rate FiO2 08/19/18 14:00 119/54 08/19/18 14:00 119/54 08/19/18 12:00 97.6 60 18 119/54 (75) 98 08/19/18 10:41 57 16 Nasal Cannula 2.0 28 08/19/18 09:29 59 127/54 08/19/18 09:29 59 127/54 08/19/18 09:00 Room Air 2.0 Nasal Cannula 08/19/18 08:00 98.7 59 18 127/54 (78) 99 08/19/18 06:40 100.0 08/19/18 06:03 138/52 08/19/18 04:37 100.0 08/19/18 04:00 100.0 67 18 138/52 (80) 96 08/19/18 00:00 99.7 67 19 156/84 (108) 95 08/18/18 21:00 Room Air Room Air 08/18/18 20:43 125/76 08/18/18 20:41 67 125/76 08/18/18 20:34 67 125/76 (92) 08/18/18 20:00 98.4 63 19 146/65 (92) 97 08/18/18 19:58 78 18 Room Air 21 08/18/18 16:00 98.9 67 19 130/61 (84) 90 Intake and Output 08/18/18 08/19/18 19:00 07:00 Intake Total 480 ml Balance 480 ml Intake Oral 480 ml # Voids 1 1 # Bowel Movements 1 1 Laboratory Tests 08/18/18 18:15: Sodium Level 135L, Potassium Level 4.9, Chloride Level 106, Carbon Dioxide Level 17L, Anion Gap 12, Blood Urea Nitrogen 60H, Creatinine 3.7H, Estimat Glomerular Filtration Rate 15.4, Glucose Level 348#H, Calcium Level 8.2L, Total Bilirubin 0.3, Aspartate Amino Transf (AST/SGOT) 15, Alanine Aminotransferase ( ALT/SGPT) 36, Alkaline Phosphatase 89, Total Protein 6.0L, Albumin 2.2L, Globulin 3.8, Albumin/Globulin Ratio 0.6L 08/19/18 06:45: Sodium Level 136, Potassium Level 4.6, Chloride Level 106, Carbon Dioxide Level 19L, Anion Gap 11, Blood Urea Nitrogen 59H, Creatinine 3.6H, Estimat Glomerular Filtration Rate 15.9, Glucose Level 214#H, Calcium Level 8.4L, White Blood Count 9.3, Red Blood Count 2.54L, Hemoglobin 8.2L, Hematocrit 25.6L, Mean Corpuscular Volume 101H, Mean Corpuscular Hemoglobin 32.5H, Mean Corpuscular Hemoglobin Concent 32.3, Red Cell Distribution Width 13.0, Platelet Count 192, Mean Platelet Volume 7.5, Neutrophils (%) (Auto) 83.0H, Lymphocytes (%) (Auto) 10.1L, Monocytes (%) (Auto) 5.9, Eosinophils (%) (Auto) 0.8, Basophils (%) (Auto ) 0.3 Height (Feet): 5 Height (Inches): 2.00 Weight (Pounds): 165 General Appearance: lethargic EENT: normal ENT inspection Neck: supple Cardiovascular: regular rhythm Respiratory/Chest: normal breath sounds Abdomen: no organomegaly Extremities: non-tender Edema: 1+ Leg (L) Edema: mild edema Neurologic: alert Skin: warm/dry Objective VITAL SIGNS: have been reviewed and are otherwise stable HEAD AND NECK: No JVP. No LAD. No thyromegaly. Extraocular movements intact. perrl LUNGS: Decreased breathing sounds on both sides. CARDIAC: Regular rate and rhythm. S1-S2. No murmur. No rub. ABDOMEN: Soft, nontender, and nondistended. EXTREMITIES: 1+ edema. No clubbing. No cyanosis. Amandeep Howell MD Aug 19, 2018 15:27
[2018-08-19 16:00] VITALS: BP 116/46
--- NOTE | 2018-08-19 16:39 | Pulmonology Progress Note ---
Assessment/Plan Assessment/Plan ASSESSMENT: The patient is a 53-year-old female, history of solitary kidney, CKD stage 4, hypertension, hyperlipidemia, prior admission with pleural effusions likely congestive heart failure, and anemia presenting with shortness of breath likely decompensated heart failure. The patient does not clinically appear infected, is afebrile, has only a mild leukocytosis. She is being treated for possible pneumonia with Rocephin under the care of the Infectious Disease service. PROBLEM LIST: 1. Hypoxemia. 2. Questionable history of asthma. 3. CHF with DD 4. Prior CT scan 07/19/2018 with evidence of mediastinal, hilar, and axillary lymphadenopathy. 5. History of transudative pleural effusion. 6. Pulmonary hypertension. 7. MICHELLE on CKD with METABOLIC ACIDOSIS 8. Edema. 9. Prior CVA. 10. Elevated RF with neg CCP TREATMENT PLAN: LIMITED PH WORK UP: CHIDI, VQ (REFUSED), SEROLOGIES NOTED Consideration for RHC, would be very helpful in determining PA pressure and volume management (declines) Monitor volumes and renal function, F/U renal recs, continue BICITRA --- > PATIENT STATES SHE IS AMENABLE NOW ---> F/U renal US, F/U ABG Optimize pulmonary hygiene/mobilize as tolerated. Titrate FiO2 to keep saturations greater than 90%. PRN bronchodilators. CT chest with minimal GGO's and non-specific LAD --> REPEAT PLEURAL FLUID CYTOLOGY SHORT INTERVAL REPEAT IMAGING AN OUTPATIENT WITH CONSIDERATION OF EBUS VS MEDIASTINOSCOPY Observe off Antibiotics per ID. Aspiration precautions. POOL COORDINATOR recs, VSS (refused) DVT prophylaxis heparin subcutaneous. The patient should have outpatient pulmonary workup including full PFTs and PSG Subjective Allergies: Coded Allergies: LISINOPRIL (Verified Allergy, Unknown, 07/16/18) LOSARTAN (Verified Allergy, Unknown, 07/16/18) Subjective Edematous renal function unchanged IO inaccurate + SOB + QUIROGA no CP no F/C States she is amenable to HD Objective Last 24 Hour Vital Signs Date Time Temp Pulse Resp B/P (MAP) Pulse Ox O2 Delivery O2 Flow Rate FiO2 08/19/18 14:00 119/54 08/19/18 14:00 119/54 08/19/18 12:00 97.6 60 18 119/54 (75) 98 08/19/18 10:41 57 16 Nasal Cannula 2.0 28 08/19/18 09:29 59 127/54 08/19/18 09:29 59 127/54 08/19/18 09:00 Room Air 2.0 Nasal Cannula 08/19/18 08:00 98.7 59 18 127/54 (78) 99 08/19/18 06:40 100.0 08/19/18 06:03 138/52 08/19/18 04:37 100.0 08/19/18 04:00 100.0 67 18 138/52 (80) 96 08/19/18 00:00 99.7 67 19 156/84 (108) 95 08/18/18 21:00 Room Air Room Air 08/18/18 20:43 125/76 08/18/18 20:41 67 125/76 08/18/18 20:34 67 125/76 (92) 08/18/18 20:00 98.4 63 19 146/65 (92) 97 08/18/18 19:58 78 18 Room Air 21 Intake and Output 08/18/18 08/19/18 19:00 07:00 Intake Total 480 ml Balance 480 ml Intake Oral 480 ml # Voids 1 1 # Bowel Movements 1 1 General Appearance: no acute distress, cachetic HEENT: normocephalic, atraumatic, anicteric, mucous membranes moist Respiratory/Chest: chest wall non-tender, crackles/rales Cardiovascular: normal peripheral pulses, normal rate, regular rhythm Abdomen: normal bowel sounds, soft, non tender, no organomegaly, non distended Extremities: no cyanosis, no clubbing, other - 1+ SANTOS Laboratory Tests 08/18/18 18:15: Sodium Level 135L, Potassium Level 4.9, Chloride Level 106, Carbon Dioxide Level 17L, Anion Gap 12, Blood Urea Nitrogen 60H, Creatinine 3.7H, Estimat Glomerular Filtration Rate 15.4, Glucose Level 348#H, Calcium Level 8.2L, Total Bilirubin 0.3, Aspartate Amino Transf (AST/SGOT) 15, Alanine Aminotransferase ( ALT/SGPT) 36, Alkaline Phosphatase 89, Total Protein 6.0L, Albumin 2.2L, Globulin 3.8, Albumin/Globulin Ratio 0.6L 08/19/18 06:45: Sodium Level 136, Potassium Level 4.6, Chloride Level 106, Carbon Dioxide Level 19L, Anion Gap 11, Blood Urea Nitrogen 59H, Creatinine 3.6H, Estimat Glomerular Filtration Rate 15.9, Glucose Level 214#H, Calcium Level 8.4L, White Blood Count 9.3, Red Blood Count 2.54L, Hemoglobin 8.2L, Hematocrit 25.6L, Mean Corpuscular Volume 101H, Mean Corpuscular Hemoglobin 32.5H, Mean Corpuscular Hemoglobin Concent 32.3, Red Cell Distribution Width 13.0, Platelet Count 192, Mean Platelet Volume 7.5, Neutrophils (%) (Auto) 83.0H, Lymphocytes (%) (Auto) 10.1L, Monocytes (%) (Auto) 5.9, Eosinophils (%) (Auto) 0.8, Basophils (%) (Auto ) 0.3 Current Medications Medications (Trade) Dose Ordered Sig/Zara Route PRN Reason Start Time Stop Time Status Last Admin Dose Admin Acetaminophen (Tylenol) 650 mg Q4H PRN ORAL Mild Pain/Temp > 100.5 08/09/18 12:15 09/08/18 12:14 08/19/18 04:07 Albuterol/ Ipratropium (Albuterol/ Ipratropium) 3 ml Q4H PRN HHN Shortness of Breath 08/15/18 16:00 08/20/18 15:59 Amlodipine Besylate (Norvasc) 10 mg DAILY ORAL 08/10/18 09:00 09/09/18 08:59 08/19/18 09:29 Atorvastatin Calcium (Lipitor) 10 mg BEDTIME ORAL 08/09/18 21:00 09/08/18 20:59 08/18/18 20:42 Carvedilol (Coreg) 37.5 mg EVERY 12 HOURS ORAL 08/09/18 21:00 09/08/18 20:59 08/19/18 09:29 Clonidine HCl (Catapres Tab) 0.1 mg EVERY 8 HOURS ORAL 08/10/18 22:00 09/09/18 21:59 08/18/18 14:58 Clopidogrel Bisulfate (Plavix) 75 mg DAILY ORAL 08/10/18 09:00 09/09/18 08:59 08/19/18 09:29 Epoetin Yordan (Procrit (for non ESRD use)) 5,000 units TUE-TUE-TUE SUBQ 08/11/18 21:00 09/10/18 20:59 08/18/18 20:42 Gabapentin (Neurontin) 300 mg Q12HR ORAL 08/09/18 21:00 09/08/18 20:59 08/19/18 09:28 Heparin Sodium (Porcine) (Heparin 5000 units/ml) 5,000 units EVERY 12 HOURS SUBQ 08/09/18 21:00 09/08/18 20:59 08/19/18 09:31 Hydralazine HCl (Apresoline) 100 mg Q8HR ORAL 08/10/18 14:00 09/09/18 13:59 08/19/18 06:03 Minoxidil (Loniten) 2.5 mg Q4H PRN ORAL sbp> 165 08/09/18 12:15 09/08/18 12:14 08/11/18 00:00 Mirtazapine (Remeron) 7.5 mg BEDTIME ORAL 08/09/18 21:00 09/08/18 20:59 08/18/18 20:43 Nateglinide (Starlix) 120 mg TIAC ORAL 08/09/18 16:30 09/08/18 16:29 08/19/18 12:18 Ondansetron HCl (Zofran) 4 mg Q6H PRN IVP Nausea & Vomiting 08/09/18 12:15 09/08/18 12:14 Oxycodone/ Acetaminophen (Percocet 10/325) 1 tab Q4H PRN ORAL moderate-severe (4-10) pain 08/15/18 08:55 08/22/18 08:54 08/19/18 10:35 Pantoprazole (Protonix) 40 mg DAILY ORAL 08/10/18 09:00 09/09/18 08:59 08/19/18 09:29 Polyethylene Glycol (Miralax) 17 gm DAILYPRN PRN ORAL Constipation 08/09/18 12:15 09/08/18 12:14 Sodium Citrate (Bicitra) 30 ml BID ORAL 08/11/18 18:00 09/10/18 17:59 08/19/18 09:28 Trazodone HCl (Desyrel) 50 mg BEDTIME ORAL 08/09/18 21:00 09/08/18 20:59 08/18/18 20:41 Kevin Gutiérrez MD Aug 19, 2018 16:39
--- NOTE | 2018-08-19 16:56 | Cardiology Progress Note ---
Assessment/Plan Assessment/Plan 1. Accelerated hypertension, well controlled, continue hydralazine, carvedilol, amlodipine and clonidine. 2. Dyspnea most likely secondary to bilateral pleural effusion, status post right thoracentesis yielding about 500 mL of fluid. 2D echocardiography July 17, 2018 showed normal LV systolic and diastolic function with LVEF of approximately 55%. Continue IV antibiotics, pulmonary toilet, and diuretic therapy. 3. Moderate pulmonary hypertension likely due to CKD. 4. Stage 5 CKD with small pericardial effusion, refused HD. 5. Anemia, possible chronic kidney disease. 6. History of CVA with left hemiparesis, consider aspirin and statins. Subjective Subjective Sinus rhythm at rate of 60. FiO2 of 28% Objective Last 24 Hour Vital Signs Date Time Temp Pulse Resp B/P (MAP) Pulse Ox O2 Delivery O2 Flow Rate FiO2 08/19/18 14:00 119/54 08/19/18 14:00 119/54 08/19/18 12:00 97.6 60 18 119/54 (75) 98 08/19/18 10:41 57 16 Nasal Cannula 2.0 28 08/19/18 09:29 59 127/54 08/19/18 09:29 59 127/54 08/19/18 09:00 Room Air 2.0 Nasal Cannula 08/19/18 08:00 98.7 59 18 127/54 (78) 99 08/19/18 06:40 100.0 08/19/18 06:03 138/52 08/19/18 04:37 100.0 08/19/18 04:00 100.0 67 18 138/52 (80) 96 08/19/18 00:00 99.7 67 19 156/84 (108) 95 08/18/18 21:00 Room Air Room Air 08/18/18 20:43 125/76 08/18/18 20:41 67 125/76 08/18/18 20:34 67 125/76 (92) 08/18/18 20:00 98.4 63 19 146/65 (92) 97 08/18/18 19:58 78 18 Room Air 21 Intake and Output 08/18/18 08/19/18 19:00 07:00 Intake Total 480 ml Balance 480 ml Intake Oral 480 ml # Voids 1 1 # Bowel Movements 1 1 2D Echo: LVEF 65%, Mild MR, Normal LVD, RVSP 56mmHg Laboratory Tests Test 08/18/18 18:15 08/19/18 06:45 Sodium Level 135 MMOL/L (136-145) L 136 MMOL/L (136-145) Potassium Level 4.9 MMOL/L (3.5-5.1) 4.6 MMOL/L (3.5-5.1) Chloride Level 106 MMOL/L (98-107) 106 MMOL/L (98-107) Carbon Dioxide Level 17 MMOL/L (21-32) L 19 MMOL/L (21-32) L Anion Gap 12 mmol/L (5-15) 11 mmol/L (5-15) Blood Urea Nitrogen 60 mg/dL (7-18) H 59 mg/dL (7-18) H Creatinine 3.7 MG/DL (0.55-1.30) H 3.6 MG/DL (0.55-1.30) H Estimat Glomerular Filtration Rate 15.4 mL/min (>60) 15.9 mL/min (>60) Glucose Level 348 MG/DL (74-106) #H 214 MG/DL (74-106) #H Calcium Level 8.2 MG/DL (8.5-10.1) L 8.4 MG/DL (8.5-10.1) L Total Bilirubin 0.3 MG/DL (0.2-1.0) Aspartate Amino Transf (AST/SGOT) 15 U/L (15-37) Alanine Aminotransferase (ALT/SGPT) 36 U/L (12-78) Alkaline Phosphatase 89 U/L (46-116) Total Protein 6.0 G/DL (6.4-8.2) L Albumin 2.2 G/DL (3.4-5.0) L Globulin 3.8 g/dL Albumin/Globulin Ratio 0.6 (1.0-2.7) L White Blood Count 9.3 K/UL (4.8-10.8) Red Blood Count 2.54 M/UL (4.20-5.40) L Hemoglobin 8.2 G/DL (12.0-16.0) L Hematocrit 25.6 % (37.0-47.0) L Mean Corpuscular Volume 101 FL (80-99) H Mean Corpuscular Hemoglobin 32.5 PG (27.0-31.0) H Mean Corpuscular Hemoglobin Concent 32.3 G/DL (32.0-36.0) Red Cell Distribution Width 13.0 % (11.6-14.8) Platelet Count 192 K/UL (150-450) Mean Platelet Volume 7.5 FL (6.5-10.1) Neutrophils (%) (Auto) 83.0 % (45.0-75.0) H Lymphocytes (%) (Auto) 10.1 % (20.0-45.0) L Monocytes (%) (Auto) 5.9 % (1.0-10.0) Eosinophils (%) (Auto) 0.8 % (0.0-3.0) Basophils (%) (Auto) 0.3 % (0.0-2.0) Objective HEENT: Atraumatic and normocephalic. Anicteric. Pupils are equal, round, and reactive to light and accommodation. Extraocular muscles intact. Poor dentition. NECK: JVP less than 5 cm. No carotid bruit. Carotid upstrokes 2+ bilaterally. LUNGS: Bilateral lower lung crackles. Diminished breath sounds on both lungs and the bases. CARDIOVASCULAR: Normal S1, S2. Regular rate and rhythm. No murmurs, gallops, or rubs. ABDOMEN: Soft, nontender, and nondistended. No hepatosplenomegaly. Positive bowel sounds. EXTREMITIES: No evidence of edema, clubbing, or cyanosis. Kwesi Zee MD Aug 19, 2018 16:56
--- NOTE | 2018-08-19 19:08 | NUR ---
HAND-OFF: Report given to Karen Collins RN. Pt. remain stable. Pt. waiting for med/surg. room.
--- NOTE | 2018-08-19 19:42 | NUR ---
NURSE NOTES: Received pt from Nhan RN. Pt awake, alert, and talkative. Bed in lowest position. Call light within reach. Will continue to monitor.
[2018-08-19 20:00] VITALS: BP 134/61
[2018-08-19] MEDS: TraZODone 50mg tab ORAL SCH (21:26)
[2018-08-20] VITALS: BP 128/56
[2018-08-20 04:00] VITALS: BP 130/70
[2018-08-20] MEDS: HydrALAZINE 50mg tab ORAL SCH ×3 (05:47→21:52)
[2018-08-20 07:35] LABS: BASOPHILS % (AUTO) 0.7 % (0.0-2.0); EOSINOPHILS % (AUTO) 3.3 % (0.0-3.0); HEMATOCRIT 26.3 % (37.0-47.0); HEMOGLOBIN 8.5 G/DL (12.0-16.0); LYMPHOCYTES % (AUTO) 17.2 % (20.0-45.0); MEAN CORPUSCULAR VOLUME 101 FL (80-99); MONOCYTES % (AUTO) 8.9 % (1.0-10.0); NEUTROPHILS % (AUTO) 69.9 % (45.0-75.0); PLATELET COUNT 203 K/UL (150-450); RED BLOOD COUNT 2.62 M/UL (4.20-5.40); RED CELL DISTRIBUTION WIDTH 13.8 % (11.6-14.8); WHITE BLOOD COUNT 6.3 K/UL (4.8-10.8)
[2018-08-20 08:00] VITALS: BP 130/60
--- NOTE | 2018-08-20 08:00 | NUR ---
HAND-OFF: Report given to JENNIFER York.
[2018-08-20 08:04] LABS: ANION GAP 10 mmol/L (5-15); BLOOD UREA NITROGEN 57 mg/dL (7-18); CALCIUM 8.4 MG/DL (8.5-10.1); CARBON DIOXIDE 19 MMOL/L (21-32); CHLORIDE 108 MMOL/L (98-107); CREATININE 3.6 MG/DL (0.55-1.30); POTASSIUM 4.5 MMOL/L (3.5-5.1); SODIUM 137 MMOL/L (136-145)
--- NOTE | 2018-08-20 08:15 | NUR ---
NURSE NOTES: Pt received from JENNIFER Jones alert and oriented x4 with no complaints or s/s of pain, SOB, or n/v. IV site asymptomatic and patent. Bed in lowest position, call light and belongings within reach.
--- NOTE | 2018-08-20 08:30 | Nephrology Progress Note ---
Assessment/Plan Assessment/Plan A/P 1) HTN Urgency- resolved. 2) MICHELLE on CKD 5- Cr stable at 3.6. Place jaramillo due to urinary retention - renal US has left renal agenesis and bladder 500ml 3) Anasarca- start lasix tid 4) Anemia CKD- Iron + EPO 5) Met Acidosis- secondary RI. On Bicitra. HCO3 stable Subjective Date patient seen: Aug 20, 2018 Time patient seen: 08:24 ROS Limited/Unobtainable: No Constitutional: Reports: malaise, weakness Allergies: Coded Allergies: LISINOPRIL (Verified Allergy, Unknown, 07/16/18) LOSARTAN (Verified Allergy, Unknown, 07/16/18) All Systems: reviewed and negative except above Subjective Patient fatigued and malaised. No overt distress Objective Last 24 Hour Vital Signs Date Time Temp Pulse Resp B/P (MAP) Pulse Ox O2 Delivery O2 Flow Rate FiO2 08/20/18 06:22 98.4 08/20/18 05:47 130/70 08/20/18 04:00 98.4 60 18 130/70 (90) 96 08/20/18 00:00 98.1 64 18 128/56 (80) 92 08/19/18 21:27 134/61 08/19/18 21:26 63 134/61 08/19/18 21:00 Room Air Room Air 08/19/18 20:00 98.6 63 19 134/61 (85) 97 08/19/18 16:00 97.8 57 18 116/46 (69) 98 08/19/18 14:00 119/54 08/19/18 14:00 119/54 08/19/18 12:00 97.6 60 18 119/54 (75) 98 08/19/18 10:41 57 16 Nasal Cannula 2.0 28 08/19/18 09:29 59 127/54 08/19/18 09:29 59 127/54 08/19/18 09:00 Room Air 2.0 Nasal Cannula Intake and Output 08/19/18 08/20/18 19:00 07:00 Intake Total 800 ml Balance 800 ml Intake Oral 800 ml # Voids 1 1 # Bowel Movements 1 1 Laboratory Tests 08/19/18 16:38: Arterial Blood pH 7.280L, Arterial Blood Partial Pressure CO2 38.2, Arterial Blood Partial Pressure O2 114.2H, Arterial Blood HCO3 17.5*L, Arterial Blood Oxygen Saturation 97.6, Arterial Blood Base Excess -8.5L, Patrick Test Positive 08/20/18 06:50: White Blood Count 6.3, Red Blood Count 2.62L, Hemoglobin 8.5L, Hematocrit 26.3L , Mean Corpuscular Volume 101H, Mean Corpuscular Hemoglobin 32.6H, Mean Corpuscular Hemoglobin Concent 32.3, Red Cell Distribution Width 13.8, Platelet Count 203, Mean Platelet Volume 8.1, Neutrophils (%) (Auto) 69.9, Lymphocytes (% ) (Auto) 17.2L, Monocytes (%) (Auto) 8.9, Eosinophils (%) (Auto) 3.3H, Basophils (%) (Auto) 0.7, Sodium Level 137, Potassium Level 4.5, Chloride Level 108H, Carbon Dioxide Level 19L, Anion Gap 10, Blood Urea Nitrogen 57H, Creatinine 3.6H, Estimat Glomerular Filtration Rate 15.9, Glucose Level 218H, Calcium Level 8.4L Height (Feet): 5 Height (Inches): 2.00 Weight (Pounds): 165 General Appearance: no apparent distress, alert EENT: normal ENT inspection Neck: normal alignment, supple Cardiovascular: normal rate, regular rhythm Respiratory/Chest: lungs clear, normal breath sounds Abdomen: non tender, soft Edema: 2+ Arm (L), 2+ Arm (R), 2+ Leg (L), 2+ Leg (R), 2+ Pedal (L), 2+ Pedal ( R), 2+ Generalized Mingo Man MD Aug 20, 2018 08:29
[2018-08-20] MEDS: Carvedilol 12.5mg tab ORAL SCH ×2 (09:07→21:00)
[2018-08-20] MEDS: Sodium Citrate 30ml ORAL SCH ×2 (09:08→19:18)
[2018-08-20] MEDS: Heparin 5000 units/ml inj SUBQ SCH ×2 (09:18→21:54)
--- NOTE | 2018-08-20 10:44 | General Progress Note ---
Assessment/Plan Problem List: (1) Acute on chronic renal failure ICD Codes: N17.9 - Acute kidney failure, unspecified; N18.9 - Chronic kidney disease, unspecified SNOMED: 203855878 Qualifiers: Qualified Codes: N17.9 - Acute kidney failure, unspecified; N18.9 - Chronic kidney disease, unspecified (2) Anemia ICD Codes: D64.9 - Anemia, unspecified SNOMED: 046739367 (3) Hypertension ICD Codes: I10 - Essential (primary) hypertension SNOMED: 83731064 (4) Diabetes mellitus ICD Codes: E11.9 - Type 2 diabetes mellitus without complications SNOMED: [id number] Status: unchanged Assessment/Plan pulm tx prn bp bs control cbc bmp am dc w hh if clear Subjective Constitutional: Reports: weakness Allergies: Coded Allergies: LISINOPRIL (Verified Allergy, Unknown, 07/16/18) LOSARTAN (Verified Allergy, Unknown, 07/16/18) All Systems: reviewed and negative except above Subjective o2nc calm in bed Objective Last 24 Hour Vital Signs Date Time Temp Pulse Resp B/P (MAP) Pulse Ox O2 Delivery O2 Flow Rate FiO2 08/20/18 09:08 68 130/60 08/20/18 09:07 68 130/60 08/20/18 09:00 Room Air Room Air 08/20/18 08:00 97.6 68 18 130/60 (83) 97 08/20/18 07:36 61 16 Nasal Cannula 2.0 28 08/20/18 06:22 98.4 08/20/18 05:47 130/70 08/20/18 04:00 98.4 60 18 130/70 (90) 96 08/20/18 00:00 98.1 64 18 128/56 (80) 92 08/19/18 21:27 134/61 08/19/18 21:26 63 134/61 08/19/18 21:00 Room Air Room Air 08/19/18 20:00 98.6 63 19 134/61 (85) 97 08/19/18 16:00 97.8 57 18 116/46 (69) 98 08/19/18 14:00 119/54 08/19/18 14:00 119/54 08/19/18 12:00 97.6 60 18 119/54 (75) 98 Intake and Output 08/19/18 08/20/18 19:00 07:00 Intake Total 800 ml Balance 800 ml Intake Oral 800 ml # Voids 1 1 # Bowel Movements 1 1 Laboratory Tests 08/19/18 16:38: Arterial Blood pH 7.280L, Arterial Blood Partial Pressure CO2 38.2, Arterial Blood Partial Pressure O2 114.2H, Arterial Blood HCO3 17.5*L, Arterial Blood Oxygen Saturation 97.6, Arterial Blood Base Excess -8.5L, Patrick Test Positive 08/20/18 06:50: White Blood Count 6.3, Red Blood Count 2.62L, Hemoglobin 8.5L, Hematocrit 26.3L , Mean Corpuscular Volume 101H, Mean Corpuscular Hemoglobin 32.6H, Mean Corpuscular Hemoglobin Concent 32.3, Red Cell Distribution Width 13.8, Platelet Count 203, Mean Platelet Volume 8.1, Neutrophils (%) (Auto) 69.9, Lymphocytes (% ) (Auto) 17.2L, Monocytes (%) (Auto) 8.9, Eosinophils (%) (Auto) 3.3H, Basophils (%) (Auto) 0.7, Sodium Level 137, Potassium Level 4.5, Chloride Level 108H, Carbon Dioxide Level 19L, Anion Gap 10, Blood Urea Nitrogen 57H, Creatinine 3.6H, Estimat Glomerular Filtration Rate 15.9, Glucose Level 218H, Calcium Level 8.4L Height (Feet): 5 Height (Inches): 2.00 Weight (Pounds): 165 General Appearance: lethargic EENT: normal ENT inspection Neck: normal alignment Cardiovascular: normal peripheral pulses, normal rate, regular rhythm Respiratory/Chest: chest wall non-tender, decreased breath sounds Abdomen: normal bowel sounds, non tender, soft Extremities: normal inspection Edema: 1+ Arm (L), 1+ Arm (R), 1+ Leg (L), 1+ Leg (R), 1+ Pedal (L), 1+ Pedal ( R), 1+ Generalized Edema: trace edema Neurologic: motor weakness Skin: normal pigmentation, warm/dry Naun Geiger DO Aug 20, 2018 10:44
[2018-08-20 12:00] VITALS: BP 133/58
--- NOTE | 2018-08-20 12:40 | General Progress Note ---
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 D/w Dr. Hagen and he concurred. Subjective Date patient seen: Aug 20, 2018 Time patient seen: 11:15 - am Allergies: Coded Allergies: LISINOPRIL (Verified Allergy, Unknown, 07/16/18) LOSARTAN (Verified Allergy, Unknown, 07/16/18) Subjective REVIEW OF SYSTEMS: Denies rash, fever, chills, sweating, dizziness, drowsiness, blurred vision, sore throat, change in her weight. No shortness of breath at this time. No chest pain, palpitations, or cough. No nausea, vomiting, diarrhea, or blood in the stool or urine. No bowel or bladder incontinence. She is complaining of generalized body pain. SUBJECTIVE: Patient continues to c/o pain which has been tolerated on the Percocet. She has no new complaint at this time. Objective Last 24 Hour Vital Signs Date Time Temp Pulse Resp B/P (MAP) Pulse Ox O2 Delivery O2 Flow Rate FiO2 08/20/18 09:08 68 130/60 08/20/18 09:07 68 130/60 08/20/18 09:00 Room Air Room Air 08/20/18 08:00 97.6 68 18 130/60 (83) 97 08/20/18 07:36 61 16 Nasal Cannula 2.0 28 08/20/18 06:22 98.4 08/20/18 05:47 130/70 08/20/18 04:00 98.4 60 18 130/70 (90) 96 08/20/18 00:00 98.1 64 18 128/56 (80) 92 08/19/18 21:27 134/61 08/19/18 21:26 63 134/61 08/19/18 21:00 Room Air Room Air 08/19/18 20:00 98.6 63 19 134/61 (85) 97 08/19/18 16:00 97.8 57 18 116/46 (69) 98 08/19/18 14:00 119/54 08/19/18 14:00 119/54 Intake and Output 08/19/18 08/20/18 19:00 07:00 Intake Total 800 ml Balance 800 ml Intake Oral 800 ml # Voids 1 1 # Bowel Movements 1 1 Laboratory Tests 08/19/18 16:38: Arterial Blood pH 7.280L, Arterial Blood Partial Pressure CO2 38.2, Arterial Blood Partial Pressure O2 114.2H, Arterial Blood HCO3 17.5*L, Arterial Blood Oxygen Saturation 97.6, Arterial Blood Base Excess -8.5L, Patrick Test Positive 08/20/18 06:50: White Blood Count 6.3, Red Blood Count 2.62L, Hemoglobin 8.5L, Hematocrit 26.3L , Mean Corpuscular Volume 101H, Mean Corpuscular Hemoglobin 32.6H, Mean Corpuscular Hemoglobin Concent 32.3, Red Cell Distribution Width 13.8, Platelet Count 203, Mean Platelet Volume 8.1, Neutrophils (%) (Auto) 69.9, Lymphocytes (% ) (Auto) 17.2L, Monocytes (%) (Auto) 8.9, Eosinophils (%) (Auto) 3.3H, Basophils (%) (Auto) 0.7, Sodium Level 137, Potassium Level 4.5, Chloride Level 108H, Carbon Dioxide Level 19L, Anion Gap 10, Blood Urea Nitrogen 57H, Creatinine 3.6H, Estimat Glomerular Filtration Rate 15.9, Glucose Level 218H, Calcium Level 8.4L Height (Feet): 5 Height (Inches): 2.00 Weight (Pounds): 165 Objective GENERAL: Alert, awake, and oriented. LUNGS: Decreased breath sounds bilaterally. HEART: S1 and S2 regular. ABDOMEN: Benign. EXTREMITIES: No cyanosis. No clubbing. NEURO: No changes. Kwabena Verduzco Aug 20, 2018 12:40
--- NOTE | 2018-08-20 12:46 | Pulmonology Progress Note ---
Assessment/Plan Assessment/Plan ASSESSMENT: The patient is a 53-year-old female, history of solitary kidney, CKD stage 4, hypertension, hyperlipidemia, prior admission with pleural effusions likely congestive heart failure, and anemia presenting with shortness of breath likely decompensated heart failure. The patient does not clinically appear infected, is afebrile, has only a mild leukocytosis. She is being treated for possible pneumonia with Rocephin under the care of the Infectious Disease service. PROBLEM LIST: 1. Hypoxemia. 2. Questionable history of asthma. 3. CHF with DD 4. Prior CT scan 07/19/2018 with evidence of mediastinal, hilar, and axillary lymphadenopathy. 5. History of transudative pleural effusion. 6. Pulmonary hypertension. 7. MICHELLE on CKD with METABOLIC ACIDOSIS 8. Edema. 9. Prior CVA. 10. Elevated RF with neg CCP TREATMENT PLAN: LIMITED PH WORK UP: CHIDI, VQ (REFUSED), SEROLOGIES NOTED Consideration for RHC, would be very helpful in determining PA pressure and volume management (declines) Monitor volumes and renal function, F/U renal recs, continue BICITRA and IV lasix per renal--- > MONITOR GAS EXCHANGE Optimize pulmonary hygiene/mobilize as tolerated. Titrate FiO2 to keep saturations greater than 90%. PRN bronchodilators. CT chest with minimal GGO's and non-specific LAD --> REPEAT PLEURAL FLUID CYTOLOGY SHORT INTERVAL REPEAT IMAGING AN OUTPATIENT WITH CONSIDERATION OF EBUS VS MEDIASTINOSCOPY Observe off Antibiotics per ID. Aspiration precautions. GATE MANAGER recs, VSS (refused) DVT prophylaxis heparin subcutaneous. The patient should have outpatient pulmonary workup including full PFTs and PSG Subjective Allergies: Coded Allergies: LISINOPRIL (Verified Allergy, Unknown, 07/16/18) LOSARTAN (Verified Allergy, Unknown, 07/16/18) Subjective Edematous renal function unchanged 7.28/38/144/17/97 IO inaccurate, started on IV lasix by renal + SOB + QUIROGA no CP no F/C States she is amenable to HD Objective Last 24 Hour Vital Signs Date Time Temp Pulse Resp B/P (MAP) Pulse Ox O2 Delivery O2 Flow Rate FiO2 08/20/18 09:08 68 130/60 08/20/18 09:07 68 130/60 08/20/18 09:00 Room Air Room Air 08/20/18 08:00 97.6 68 18 130/60 (83) 97 08/20/18 07:36 61 16 Nasal Cannula 2.0 28 08/20/18 06:22 98.4 08/20/18 05:47 130/70 08/20/18 04:00 98.4 60 18 130/70 (90) 96 08/20/18 00:00 98.1 64 18 128/56 (80) 92 08/19/18 21:27 134/61 08/19/18 21:26 63 134/61 08/19/18 21:00 Room Air Room Air 08/19/18 20:00 98.6 63 19 134/61 (85) 97 08/19/18 16:00 97.8 57 18 116/46 (69) 98 08/19/18 14:00 119/54 08/19/18 14:00 119/54 Intake and Output 08/19/18 08/20/18 19:00 07:00 Intake Total 800 ml Balance 800 ml Intake Oral 800 ml # Voids 1 1 # Bowel Movements 1 1 General Appearance: no acute distress, cachetic HEENT: normocephalic, atraumatic, anicteric, mucous membranes moist Respiratory/Chest: crackles/rales Cardiovascular: normal peripheral pulses, normal rate, regular rhythm Abdomen: normal bowel sounds, soft, non tender, no organomegaly, non distended , no mass Extremities: no cyanosis, no clubbing, other - 3+ SANTOS Laboratory Tests 08/19/18 16:38: Arterial Blood pH 7.280L, Arterial Blood Partial Pressure CO2 38.2, Arterial Blood Partial Pressure O2 114.2H, Arterial Blood HCO3 17.5*L, Arterial Blood Oxygen Saturation 97.6, Arterial Blood Base Excess -8.5L, Patrick Test Positive 08/20/18 06:50: White Blood Count 6.3, Red Blood Count 2.62L, Hemoglobin 8.5L, Hematocrit 26.3L , Mean Corpuscular Volume 101H, Mean Corpuscular Hemoglobin 32.6H, Mean Corpuscular Hemoglobin Concent 32.3, Red Cell Distribution Width 13.8, Platelet Count 203, Mean Platelet Volume 8.1, Neutrophils (%) (Auto) 69.9, Lymphocytes (% ) (Auto) 17.2L, Monocytes (%) (Auto) 8.9, Eosinophils (%) (Auto) 3.3H, Basophils (%) (Auto) 0.7, Sodium Level 137, Potassium Level 4.5, Chloride Level 108H, Carbon Dioxide Level 19L, Anion Gap 10, Blood Urea Nitrogen 57H, Creatinine 3.6H, Estimat Glomerular Filtration Rate 15.9, Glucose Level 218H, Calcium Level 8.4L Current Medications Medications (Trade) Dose Ordered Sig/Zara Route PRN Reason Start Time Stop Time Status Last Admin Dose Admin Acetaminophen (Tylenol) 650 mg Q4H PRN ORAL Mild Pain/Temp > 100.5 08/09/18 12:15 09/08/18 12:14 08/19/18 04:07 Albuterol/ Ipratropium (Albuterol/ Ipratropium) 3 ml Q4H PRN HHN Shortness of Breath 08/15/18 16:00 08/20/18 15:59 Amlodipine Besylate (Norvasc) 10 mg DAILY ORAL 08/10/18 09:00 09/09/18 08:59 08/20/18 09:08 Atorvastatin Calcium (Lipitor) 10 mg BEDTIME ORAL 08/09/18 21:00 09/08/18 20:59 08/19/18 21:27 Carvedilol (Coreg) 37.5 mg EVERY 12 HOURS ORAL 08/09/18 21:00 09/08/18 20:59 08/20/18 09:07 Clonidine HCl (Catapres Tab) 0.1 mg EVERY 8 HOURS ORAL 08/10/18 22:00 09/09/18 21:59 08/18/18 14:58 Clopidogrel Bisulfate (Plavix) 75 mg DAILY ORAL 08/10/18 09:00 09/09/18 08:59 08/20/18 09:07 Epoetin Yordan (Procrit (for non ESRD use)) 5,000 units TUE-WED-TUE SUBQ 08/11/18 21:00 09/10/18 20:59 08/18/18 20:42 Furosemide (Lasix) 20 mg Q8HR IV 08/20/18 08:34 09/19/18 08:33 08/20/18 09:10 Gabapentin (Neurontin) 300 mg Q12HR ORAL 08/09/18 21:00 09/08/18 20:59 08/20/18 09:08 Heparin Sodium (Porcine) (Heparin 5000 units/ml) 5,000 units EVERY 12 HOURS SUBQ 08/09/18 21:00 09/08/18 20:59 08/20/18 09:18 Hydralazine HCl (Apresoline) 100 mg Q8HR ORAL 08/10/18 14:00 09/09/18 13:59 08/20/18 05:47 Minoxidil (Loniten) 2.5 mg Q4H PRN ORAL sbp> 165 08/09/18 12:15 09/08/18 12:14 08/11/18 00:00 Mirtazapine (Remeron) 7.5 mg BEDTIME ORAL 08/09/18 21:00 09/08/18 20:59 08/19/18 21:27 Nateglinide (Starlix) 120 mg TIAC ORAL 08/09/18 16:30 09/08/18 16:29 08/20/18 05:47 Ondansetron HCl (Zofran) 4 mg Q6H PRN IVP Nausea & Vomiting 08/09/18 12:15 09/08/18 12:14 Oxycodone/ Acetaminophen (Percocet 10/325) 1 tab Q4H PRN ORAL moderate-severe (4-10) pain 08/15/18 08:55 08/22/18 08:54 08/20/18 05:52 Pantoprazole (Protonix) 40 mg DAILY ORAL 08/10/18 09:00 09/09/18 08:59 08/20/18 09:07 Polyethylene Glycol (Miralax) 17 gm DAILYPRN PRN ORAL Constipation 08/09/18 12:15 09/08/18 12:14 Sodium Citrate (Bicitra) 30 ml BID ORAL 08/11/18 18:00 09/10/18 17:59 08/20/18 09:08 Trazodone HCl (Desyrel) 50 mg BEDTIME ORAL 08/09/18 21:00 09/08/18 20:59 08/19/18 21:26 Kevin Gutiérrez MD Aug 20, 2018 12:46
--- NOTE | 2018-08-20 13:19 | NUR ---
TRANSFER TO FLOOR: Patient transferred to [address] [place] [address], [address] Geiger. Report given to JENNIFER Ledezma. Belongings and medications given to JENNIFER Ledezma. Family and or S/O informed of transfer.
--- NOTE | 2018-08-20 13:20 | NUR ---
NURSE NOTES:\Received patient into room 403 bed 1,patient is alert and oriented,respirations unlabored.02 on by N/C at 2 L.,,will monitor,call light within reach,bed alarm is on.
--- NOTE | 2018-08-20 14:50 | NUR ---
CASE MANAGEMENT:REVIEW 08/19/2018 SI: AC/CHR RENAL FAILURE. PLEURAL EFFUSION T 97.8 HR 57 RR 18 B/P 116/46 SATS 98% ON RA CO2 19 BUN 59 CR 3.6 GLU 214 CCA 8.4 IS: PROCRIT SUBQ MWF BICITRA PO BID CLONIDINE PO Q8HRS HYDRALAZINE PO Q8 NORVASC PO QD PLAVIX PO QD PROTONIX PO QD COREG PO Q12H NEURONTIN PO Q12H HEPARIN SUBQ Q12H REMERON PO QHS PERCOCET PO Q4HRS PRN : TELEMETRY STATUS DCP; FROM HOME 08/20/2018 SI: AC/CHR RENAL FAILURE. PLEURAL EFFUSION T 97.6 HR 68 RR 18 B/P 130/60 SATS 97% ON RA CL 108 CO2 19 BUN 57 CR 3.6 GLU 218 CA 8.4 IS: PROCRIT SUBQ MWF BICITRA PO BID CLONIDINE PO Q8HRS HYDRALAZINE PO Q8 NORVASC PO QD PLAVIX PO QD PROTONIX PO QD COREG PO Q12H NEURONTIN PO Q12H HEPARIN SUBQ Q12H REMERON PO QHS PERCOCET PO Q4HRS PRN : TELEMETRY STATUS DCP; FROM HOME
--- NOTE | 2018-08-20 14:54 | General Progress Note ---
Assessment/Plan Assessment/Plan #. Anemia of chronic disease - patient with ongoing kidney damage, cr is elevated approx 2-2.5 baseline, now 3-4 range --> anemia panel has reviewed, ferritin 222, has minimal iron depletion --> appreciate nephrology consult --> continue on epogen --> transfuse if hgb is <7 --> hemolysis w/u has been reviewed --> trend hgb 8.9-->8.4-->8.5-->10.7-->9-->9.1-->8.2-->8.5 --> ON EPO SQ AND IRON IV # Leukopenia wbc in the 4-6 range --> hepatitis panel negative, hiv neg --> us abd shows borderline spleen enlargement # Acute versus chronic renal failure. as per renal etiology of acute renal failure is cardiorenal syndrome, prerenal azotemia versus unstable --> bp to improve on current meds --> nephro recs appreciated #. Coagulopathy with elevated inr --> recheck in future prn, now improved #. CHF, but at this point the patient seems to be euvolemic --> as per cardiology #. Possible renal osteodystrophy #. Uncontrolled hypertension. --> now better #. Pleural eff s/p thora The timing of this note does not necessarily reflect the time of the patient was seen Greatly appreciate consultation! Subjective Constitutional: Denies: no symptoms, chills, diaphoresis, fever, malaise, weakness, other HEENT: Denies: no symptoms, eye pain, blurred vision, tearing, double vision, ear pain, ear discharge, nose pain, nose congestion, throat pain, throat swelling, mouth pain, mouth swelling, other Respiratory: Denies: no symptoms, cough, orthopnea, shortness of breath, SOB with excertion, SOB at rest, sputum, stridor, wheezing, other Gastrointestinal/Abdominal: Denies: no symptoms, abdomen distended, abdominal pain, black stools, tarry stools, blood in stool, constipated, diarrhea, difficulty swallowing, nausea, poor appetite, poor fluid intake, rectal bleeding , vomiting, other Genitourinary: Denies: no symptoms, burning, discharge, frequency, flank pain, hematuria, incontinence, pain, urgency, other Endocrine: Denies: no symptoms, excessive sweating, flushing, intolerance to cold, intolerance to heat, increased hunger, increased thirst, increased urine, unexplained weight gain, unexplained weight loss, other Hematologic/Lymphatic: Denies: no symptoms, anemia, easy bleeding, easy bruising, other Allergies: Coded Allergies: LISINOPRIL (Verified Allergy, Unknown, 07/16/18) LOSARTAN (Verified Allergy, Unknown, 07/16/18) Subjective 08/11/18: Pt is awake and resting in bed, denies acute distress, no events reported, cbc reviewed. 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 plt 170 today, no events reported 08/14/18: no events overnight, no major changes noted, cr is higher 08/15/18: Pt is awake and calm, no major events , hgh remains low at 9 08/16: no events noted, h/h remains relatively stable, a+o x3, cbc reviewed 08/17: Pt is awake and resting in bed, will continue on Percocet, remains stable , cbc reviewed. 08/18: continuing on percocet as per pain, otherwise no complaints, potential dc soon per pcp 08/19: no events to report, no fevers or chills, hgb 8.2 08/20: alert and oriented x4 with no complaints or s/s of pain, SOB, or n/v, h/h stable Objective Last 24 Hour Vital Signs Date Time Temp Pulse Resp B/P (MAP) Pulse Ox O2 Delivery O2 Flow Rate FiO2 08/20/18 13:04 133/58 08/20/18 13:03 133/58 08/20/18 12:00 97.6 69 18 133/58 (83) 96 08/20/18 09:08 68 130/60 08/20/18 09:07 68 130/60 08/20/18 09:00 Room Air Room Air 08/20/18 08:00 97.6 68 18 130/60 (83) 97 08/20/18 07:36 61 16 Nasal Cannula 2.0 28 08/20/18 06:22 98.4 08/20/18 05:47 130/70 08/20/18 04:00 98.4 60 18 130/70 (90) 96 08/20/18 00:00 98.1 64 18 128/56 (80) 92 08/19/18 21:27 134/61 08/19/18 21:26 63 134/61 08/19/18 21:00 Room Air Room Air 08/19/18 20:00 98.6 63 19 134/61 (85) 97 08/19/18 16:00 97.8 57 18 116/46 (69) 98 Intake and Output 08/19/18 08/20/18 19:00 07:00 Intake Total 800 ml Balance 800 ml Intake Oral 800 ml # Voids 1 1 # Bowel Movements 1 1 Laboratory Tests 08/19/18 16:38: Arterial Blood pH 7.280L, Arterial Blood Partial Pressure CO2 38.2, Arterial Blood Partial Pressure O2 114.2H, Arterial Blood HCO3 17.5*L, Arterial Blood Oxygen Saturation 97.6, Arterial Blood Base Excess -8.5L, Patrick Test Positive 08/20/18 06:50: White Blood Count 6.3, Red Blood Count 2.62L, Hemoglobin 8.5L, Hematocrit 26.3L , Mean Corpuscular Volume 101H, Mean Corpuscular Hemoglobin 32.6H, Mean Corpuscular Hemoglobin Concent 32.3, Red Cell Distribution Width 13.8, Platelet Count 203, Mean Platelet Volume 8.1, Neutrophils (%) (Auto) 69.9, Lymphocytes (% ) (Auto) 17.2L, Monocytes (%) (Auto) 8.9, Eosinophils (%) (Auto) 3.3H, Basophils (%) (Auto) 0.7, Sodium Level 137, Potassium Level 4.5, Chloride Level 108H, Carbon Dioxide Level 19L, Anion Gap 10, Blood Urea Nitrogen 57H, Creatinine 3.6H, Estimat Glomerular Filtration Rate 15.9, Glucose Level 218H, Calcium Level 8.4L Height (Feet): 5 Height (Inches): 2.00 Weight (Pounds): 165 Objective VITAL SIGNS: have been reviewed and are otherwise stable HEAD AND NECK: No JVP. No LAD. No thyromegaly. Extraocular movements intact. perrl LUNGS: Decreased breathing sounds on both sides. CARDIAC: Regular rate and rhythm. S1-S2. No murmur. No rub. ABDOMEN: Soft, nontender, and nondistended. EXTREMITIES: 1+ edema. No clubbing. No cyanosis. Amandeep Howell MD Aug 20, 2018 14:54
[2018-08-20] MEDS ORDERED: Minoxidil 2.5mg tab ORAL PRN (15:43)
[2018-08-20] MEDS ORDERED: Miralax 17gm pkt ORAL PRN (15:43)
[2018-08-20] MEDS ORDERED: Albuterol/Ipratropium 3ml neb HHN PRN (16:00)
[2018-08-20 17:48] VITALS: BP 136/53
--- NOTE | 2018-08-20 19:15 | NUR ---
NURSE NOTES: Patient refuse to have jaramillo catheter earlier today,educate the importance of jaramillo catheter,patient now agree to have jaramillo placed.call light within reach,bed alarm is on.
--- NOTE | 2018-08-20 19:25 | NUR ---
HAND-OFF: Report given to Paula RODRIGUEZ.
[2018-08-20 20:00] VITALS: BP 145/63
--- NOTE | 2018-08-20 20:03 | NUR ---
NURSE NOTES: Pt received awake alert talkative, bed in lowest position , no c/o pain, no signs of distress at the moment, call light within reach able to make needs known, personal bedside comode near the bed.
[2018-08-20] MEDS: TraZODone 50mg tab ORAL SCH (21:50)
[2018-08-21] VITALS: BP 122/46
[2018-08-21 04:00] VITALS: BP 141/59
[2018-08-21] MEDS: HydrALAZINE 50mg tab ORAL SCH ×3 (06:06→22:09)
--- NOTE | 2018-08-21 07:35 | NUR ---
NURSE NOTES: received patient in bed, patient awake, alert and oriented x4 ,no complaints pain or s/s SOB, HL site asymptomatic and patent. Ramírez cath to gravity, on fall precaution ,Bed in lowest position, call light and belongings within reach colette blanca
--- NOTE | 2018-08-21 07:51 | NUR ---
HAND-OFF: Report given to JENNIFER Reid.
[2018-08-21 08:00] VITALS: BP 134/66
[2018-08-21 08:21] LABS: HEMATOCRIT 31.1 % (37.0-47.0); HEMOGLOBIN 9.4 G/DL (12.0-16.0); MEAN CORPUSCULAR VOLUME 103 FL (80-99); PLATELET COUNT 81 K/UL (150-450); RED BLOOD COUNT 3.02 M/UL (4.20-5.40); WHITE BLOOD COUNT 5.2 K/UL (4.8-10.8)
[2018-08-21] MEDS: Sodium Citrate 30ml ORAL SCH ×2 (08:48→17:09)
[2018-08-21] MEDS: Carvedilol 12.5mg tab ORAL SCH ×2 (08:49→21:05)
[2018-08-21] MEDS: Heparin 5000 units/ml inj SUBQ SCH ×2 (08:53→21:00)
[2018-08-21 09:14] LABS: ANION GAP 13 mmol/L (5-15); BLOOD UREA NITROGEN 54 mg/dL (7-18); CALCIUM 8.6 MG/DL (8.5-10.1); CARBON DIOXIDE 17 MMOL/L (21-32); CHLORIDE 108 MMOL/L (98-107); CREATININE 3.1 MG/DL (0.55-1.30); POTASSIUM 5.1 MMOL/L (3.5-5.1); SODIUM 138 MMOL/L (136-145)
--- NOTE | 2018-08-21 09:33 | NUR ---
DISCHARGE PLANNING CALLED PLACED TO [facility] [employer] T: [phone] MESSAGE LEFT REQUESTING A RETURN CALL REGARDING HOME OXYGEN STATUS
--- NOTE | 2018-08-21 11:56 | Pulmonology Progress Note ---
Assessment/Plan Assessment/Plan ASSESSMENT: The patient is a 53-year-old female, history of solitary kidney, CKD stage 4, hypertension, hyperlipidemia, prior admission with pleural effusions likely congestive heart failure, and anemia presenting with shortness of breath likely decompensated heart failure. The patient does not clinically appear infected, is afebrile, has only a mild leukocytosis. She is being treated for possible pneumonia with Rocephin under the care of the Infectious Disease service. PROBLEM LIST: 1. Hypoxemia. 2. Questionable history of asthma. 3. CHF with DD 4. Prior CT scan 07/19/2018 with evidence of mediastinal, hilar, and axillary lymphadenopathy. 5. History of transudative pleural effusion. 6. Pulmonary hypertension. 7. MICHELLE on CKD with METABOLIC ACIDOSIS 8. Edema. 9. Prior CVA. 10. Elevated RF with neg CCP TREATMENT PLAN: LIMITED PH WORK UP: CHIDI, VQ (REFUSED), SEROLOGIES NOTED Consideration for RHC, would be very helpful in determining PA pressure and volume management (declines) Monitor volumes and renal function, F/U renal recs, continue BICITRA and IV lasix per renal--- > MONITOR GAS EXCHANGE Optimize pulmonary hygiene/mobilize as tolerated. Titrate FiO2 to keep saturations greater than 90%. PRN bronchodilators. CT chest with minimal GGO's and non-specific LAD --> REPEAT PLEURAL FLUID CYTOLOGY SHORT INTERVAL REPEAT IMAGING AN OUTPATIENT WITH CONSIDERATION OF EBUS VS MEDIASTINOSCOPY Observe off Antibiotics per ID. Aspiration precautions. 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 The patient should have outpatient pulmonary workup including full PFTs and PSG Subjective Allergies: Coded Allergies: LISINOPRIL (Verified Allergy, Unknown, 07/16/18) LOSARTAN (Verified Allergy, Unknown, 07/16/18) Subjective Edematous Cr better IO inaccurate, diuresing + SOB + QUIROGA no CP no F/C Objective Last 24 Hour Vital Signs Date Time Temp Pulse Resp B/P (MAP) Pulse Ox O2 Delivery O2 Flow Rate FiO2 08/21/18 08:50 75 134/66 08/21/18 08:49 75 134/66 08/21/18 08:05 Room Air Room Air 08/21/18 08:00 97.9 75 20 134/66 (88) 94 08/21/18 07:33 98 12 Nasal Cannula 2.0 28 08/21/18 06:06 141/59 08/21/18 06:06 141/59 08/21/18 04:00 97.8 64 16 141/59 (86) 98 08/21/18 00:00 96.5 63 18 122/46 (71) 98 08/20/18 21:52 143/63 08/20/18 21:00 66 145/63 08/20/18 21:00 Room Air Room Air 08/20/18 20:31 64 16 Nasal Cannula 2.0 28 08/20/18 20:00 97.5 66 17 145/63 (90) 95 08/20/18 17:48 98.2 62 18 136/53 (80) 98 08/20/18 13:04 133/58 08/20/18 13:03 133/58 08/20/18 12:00 97.6 69 18 133/58 (83) 96 Intake and Output 08/20/18 08/21/18 19:00 07:00 Intake Total 360 ml Output Total 1050 ml Balance 360 ml -1050 ml Intake Oral 360 ml Output Urine Total 1050 ml # Voids 1 # Bowel Movements 2 General Appearance: no acute distress, cachetic HEENT: normocephalic, atraumatic, anicteric, mucous membranes moist Respiratory/Chest: chest wall non-tender, crackles/rales Cardiovascular: normal peripheral pulses, normal rate, regular rhythm Abdomen: normal bowel sounds, soft, non tender, no organomegaly, non distended , no mass Extremities: no cyanosis, no clubbing, other - 1+ SANTOS Laboratory Tests 08/21/18 06:30: White Blood Count 5.2, Red Blood Count 3.02L, Hemoglobin 9.4L, Hematocrit 31.1L , Mean Corpuscular Volume 103H, Mean Corpuscular Hemoglobin 31.2H, Mean Corpuscular Hemoglobin Concent 30.3L, Red Cell Distribution Width 14.0, Platelet Count 81#L, Mean Platelet Volume 7.0, Neutrophils (%) (Auto) , Lymphocytes (%) (Auto) , Monocytes (%) (Auto) , Eosinophils (%) (Auto) , Basophils (%) (Auto) , Differential Total Cells Counted 100, Neutrophils % ( Manual) 76H, Lymphocytes % (Manual) 11L, Monocytes % (Manual) 8, Eosinophils % ( Manual) 2, Basophils % (Manual) 0, Band Neutrophils 3, Platelet Estimate Adequate, Platelet Morphology Normal, Hector Cells 1+, Acanthocytes 1+, Sodium Level 138, Potassium Level 5.1, Chloride Level 108H, Carbon Dioxide Level 17L, Anion Gap 13, Blood Urea Nitrogen 54H, Creatinine 3.1H, Estimat Glomerular Filtration Rate 18.9, Glucose Level 224H, Calcium Level 8.6 Current Medications Medications (Trade) Dose Ordered Sig/Zara Route PRN Reason Start Time Stop Time Status Last Admin Dose Admin Acetaminophen (Tylenol) 650 mg Q4H PRN ORAL Mild Pain/Temp > 100.5 08/20/18 15:41 09/08/18 15:40 Albuterol/ Ipratropium (Albuterol/ Ipratropium) 3 ml Q4H PRN HHN Shortness of Breath 08/20/18 16:00 08/24/18 15:59 Amlodipine Besylate (Norvasc) 10 mg DAILY ORAL 08/21/18 09:00 09/09/18 08:59 08/21/18 08:50 Atorvastatin Calcium (Lipitor) 10 mg BEDTIME ORAL 08/20/18 21:00 09/08/18 20:59 08/20/18 21:49 Carvedilol (Coreg) 37.5 mg EVERY 12 HOURS ORAL 08/20/18 21:00 09/08/18 20:59 08/21/18 08:49 Clonidine HCl (Catapres Tab) 0.1 mg EVERY 8 HOURS ORAL 08/20/18 22:00 09/09/18 21:59 08/21/18 06:06 Clopidogrel Bisulfate (Plavix) 75 mg DAILY ORAL 08/21/18 09:00 09/09/18 08:59 08/21/18 08:48 Epoetin Yordan (Procrit (for non ESRD use)) 5,000 units MON-WED-TUE SUBQ 08/21/18 21:00 09/10/18 20:59 Furosemide (Lasix) 20 mg Q8HR IV 08/20/18 22:00 09/19/18 08:33 08/21/18 06:07 Gabapentin (Neurontin) 300 mg Q12HR ORAL 08/20/18 21:00 09/08/18 20:59 08/21/18 08:50 Heparin Sodium (Porcine) (Heparin 5000 units/ml) 5,000 units EVERY 12 HOURS SUBQ 08/20/18 21:00 09/08/18 20:59 08/20/18 21:54 Hydralazine HCl (Apresoline) 100 mg Q8HR ORAL 08/20/18 22:00 09/09/18 13:59 08/21/18 06:06 Minoxidil (Loniten) 2.5 mg Q4H PRN ORAL sbp> 165 08/20/18 15:43 09/08/18 15:42 Mirtazapine (Remeron) 7.5 mg BEDTIME ORAL 08/20/18 21:00 09/08/18 20:59 08/20/18 21:48 Nateglinide (Starlix) 120 mg TIAC ORAL 08/20/18 16:30 09/08/18 16:29 08/21/18 11:18 Ondansetron HCl (Zofran) 4 mg Q6H PRN IVP Nausea & Vomiting 08/20/18 15:43 09/08/18 15:42 Oxycodone/ Acetaminophen (Percocet 10/325) 1 tab Q4H PRN ORAL moderate-severe (4-10) pain 08/20/18 15:43 08/22/18 15:42 08/21/18 09:25 Pantoprazole (Protonix) 40 mg DAILY ORAL 08/21/18 09:00 09/09/18 08:59 08/21/18 08:49 Polyethylene Glycol (Miralax) 17 gm DAILYPRN PRN ORAL Constipation 08/20/18 15:43 09/19/18 15:42 Sodium Citrate (Bicitra) 30 ml BID ORAL 08/20/18 18:00 09/10/18 17:59 08/21/18 08:48 Trazodone HCl (Desyrel) 50 mg BEDTIME ORAL 08/20/18 21:00 09/08/18 20:59 08/20/18 21:50 Kevin Gutiérrez MD Aug 21, 2018 11:56
[2018-08-21 12:00] VITALS: BP 126/82
--- NOTE | 2018-08-21 14:04 | General Progress Note ---
Assessment/Plan Problem List: (1) Acute on chronic renal failure ICD Codes: N17.9 - Acute kidney failure, unspecified; N18.9 - Chronic kidney disease, unspecified SNOMED: 419158093 Qualifiers: Qualified Codes: N17.9 - Acute kidney failure, unspecified; N18.9 - Chronic kidney disease, unspecified (2) Anemia ICD Codes: D64.9 - Anemia, unspecified SNOMED: 393990428 (3) Hypertension ICD Codes: I10 - Essential (primary) hypertension SNOMED: 43908043 (4) Diabetes mellitus ICD Codes: E11.9 - Type 2 diabetes mellitus without complications SNOMED: 29479923 Status: stable, progressing Assessment/Plan pulm tx prn bp bs control cbc bmp am dc w hh if clear Subjective Constitutional: Reports: weakness Respiratory: Reports: shortness of breath Allergies: Coded Allergies: LISINOPRIL (Verified Allergy, Unknown, 07/16/18) LOSARTAN (Verified Allergy, Unknown, 07/16/18) All Systems: reviewed and negative except above Subjective o2nc calm in bed Objective Last 24 Hour Vital Signs Date Time Temp Pulse Resp B/P (MAP) Pulse Ox O2 Delivery O2 Flow Rate FiO2 08/21/18 13:59 126/82 08/21/18 13:58 126/82 08/21/18 12:00 98.1 65 18 126/82 (97) 94 08/21/18 08:50 75 134/66 08/21/18 08:49 75 134/66 08/21/18 08:05 Room Air Room Air 08/21/18 08:00 97.9 75 20 134/66 (88) 94 08/21/18 07:33 98 12 Nasal Cannula 2.0 28 08/21/18 06:06 141/59 08/21/18 06:06 141/59 08/21/18 04:00 97.8 64 16 141/59 (86) 98 08/21/18 00:00 96.5 63 18 122/46 (71) 98 08/20/18 21:52 143/63 08/20/18 21:00 66 145/63 08/20/18 21:00 Room Air Room Air 08/20/18 20:31 64 16 Nasal Cannula 2.0 28 08/20/18 20:00 97.5 66 17 145/63 (90) 95 08/20/18 17:48 98.2 62 18 136/53 (80) 98 Intake and Output 08/20/18 08/21/18 19:00 07:00 Intake Total 360 ml Output Total 1050 ml Balance 360 ml -1050 ml Intake Oral 360 ml Output Urine Total 1050 ml # Voids 1 # Bowel Movements 2 Laboratory Tests 08/21/18 06:30: White Blood Count 5.2, Red Blood Count 3.02L, Hemoglobin 9.4L, Hematocrit 31.1L , Mean Corpuscular Volume 103H, Mean Corpuscular Hemoglobin 31.2H, Mean Corpuscular Hemoglobin Concent 30.3L, Red Cell Distribution Width 14.0, Platelet Count 81#L, Mean Platelet Volume 7.0, Neutrophils (%) (Auto) , Lymphocytes (%) (Auto) , Monocytes (%) (Auto) , Eosinophils (%) (Auto) , Basophils (%) (Auto) , Differential Total Cells Counted 100, Neutrophils % ( Manual) 76H, Lymphocytes % (Manual) 11L, Monocytes % (Manual) 8, Eosinophils % ( Manual) 2, Basophils % (Manual) 0, Band Neutrophils 3, Platelet Estimate Adequate, Platelet Morphology Normal, Hector Cells 1+, Acanthocytes 1+, Sodium Level 138, Potassium Level 5.1, Chloride Level 108H, Carbon Dioxide Level 17L, Anion Gap 13, Blood Urea Nitrogen 54H, Creatinine 3.1H, Estimat Glomerular Filtration Rate 18.9, Glucose Level 224H, Calcium Level 8.6 Height (Feet): 5 Height (Inches): 2.00 Weight (Pounds): 165 General Appearance: lethargic EENT: normal ENT inspection Neck: normal alignment Cardiovascular: normal peripheral pulses, normal rate, regular rhythm Respiratory/Chest: chest wall non-tender, lungs clear, normal breath sounds Abdomen: normal bowel sounds, non tender, soft Extremities: normal inspection Edema: 1+ Arm (L), 1+ Arm (R), 1+ Leg (L), 1+ Leg (R), 1+ Pedal (L), 1+ Pedal ( R), 1+ Generalized Edema: mild edema Neurologic: motor weakness Skin: normal pigmentation, warm/dry Naun Geiger DO Aug 21, 2018 14:04
--- NOTE | 2018-08-21 14:53 | General Progress Note ---
Assessment/Plan Assessment/Plan #. Anemia of chronic disease - patient with ongoing kidney damage, cr is elevated approx 2-2.5 baseline, now 3-4 range --> anemia panel has reviewed, ferritin 222, has minimal iron depletion --> appreciate nephrology consult --> continue on epogen --> transfuse if hgb is <7 --> hemolysis w/u has been reviewed --> trend hgb 8.9-->8.4-->8.5-->10.7-->9-->9.1-->8.2-->8.5 --> ON EPO SQ AND IRON IV #Thrombocytopenia plt trending down --> trend plt 81 # Leukopenia wbc in the 4-6 range --> hepatitis panel negative, hiv neg --> us abd shows borderline spleen enlargement # Acute versus chronic renal failure. as per renal etiology of acute renal failure is cardiorenal syndrome, prerenal azotemia versus unstable --> bp to improve on current meds --> nephro recs appreciated #. Coagulopathy with elevated inr --> recheck in future prn, now improved #. CHF, but at this point the patient seems to be euvolemic --> as per cardiology #. Possible renal osteodystrophy #. Uncontrolled hypertension. --> now better #. Pleural eff s/p thora The timing of this note does not necessarily reflect the time of the patient was seen Greatly appreciate consultation! Subjective ROS Limited/Unobtainable: No Constitutional: Denies: no symptoms, chills, diaphoresis, fever, malaise, weakness, other HEENT: Denies: no symptoms, eye pain, blurred vision, tearing, double vision, ear pain, ear discharge, nose pain, nose congestion, throat pain, throat swelling, mouth pain, mouth swelling, other Cardiovascular: Denies: no symptoms, chest pain, edema, irregular heart rate, lightheadedness, palpitations, syncope, other Respiratory: Denies: no symptoms, cough, orthopnea, shortness of breath, SOB with excertion, SOB at rest, sputum, stridor, wheezing, other Gastrointestinal/Abdominal: Denies: no symptoms, abdomen distended, abdominal pain, black stools, tarry stools, blood in stool, constipated, diarrhea, difficulty swallowing, nausea, poor appetite, poor fluid intake, rectal bleeding , vomiting, other Genitourinary: Denies: no symptoms, burning, discharge, frequency, flank pain, hematuria, incontinence, pain, urgency, other Neurologic/Psychiatric: Denies: no symptoms, anxiety, depressed, emotional problems, headache, numbness, paresthesia, pre-existing deficit, seizure, tingling, tremors, weakness, other Endocrine: Denies: no symptoms, excessive sweating, flushing, intolerance to cold, intolerance to heat, increased hunger, increased thirst, increased urine, unexplained weight gain, unexplained weight loss, other Hematologic/Lymphatic: Denies: no symptoms, anemia, easy bleeding, easy bruising, other Allergies: Coded Allergies: LISINOPRIL (Verified Allergy, Unknown, 07/16/18) LOSARTAN (Verified Allergy, Unknown, 07/16/18) Subjective 08/11/18: Pt is awake and resting in bed, denies acute distress, no events reported, cbc reviewed. 08/12/18: Pt is seen in the room, resting in bed, watching T.V, leukocytosis resolved,on lunchroom monitor 08/13/18:Pt is seen in the room, resting in bed, Aox3. plt 170 today, no events reported 08/14/18: no events overnight, no major changes noted, cr is higher 08/15/18: Pt is awake and calm, no major events , hgh remains low at 9 08/16: no events noted, h/h remains relatively stable, a+o x3, cbc reviewed 08/17: Pt is awake and resting in bed, will continue on Percocet, remains stable , cbc reviewed. 08/18: continuing on percocet as per pain, otherwise no complaints, potential dc soon per pcp 08/19: no events to report, no fevers or chills, hgb 8.2 08/20: alert and oriented x4 with no complaints or s/s of pain, SOB, or n/v, h/h stable 08/21: Pt is awake and comfortable, remains afebrile, plt 81 today. Objective Last 24 Hour Vital Signs Date Time Temp Pulse Resp B/P (MAP) Pulse Ox O2 Delivery O2 Flow Rate FiO2 08/21/18 13:59 126/82 08/21/18 13:58 126/82 08/21/18 12:00 98.1 65 18 126/82 (97) 94 08/21/18 08:50 75 134/66 08/21/18 08:49 75 134/66 08/21/18 08:05 Room Air Room Air 08/21/18 08:00 97.9 75 20 134/66 (88) 94 08/21/18 07:33 98 12 Nasal Cannula 2.0 28 08/21/18 06:06 141/59 08/21/18 06:06 141/59 08/21/18 04:00 97.8 64 16 141/59 (86) 98 08/21/18 00:00 96.5 63 18 122/46 (71) 98 08/20/18 21:52 143/63 08/20/18 21:00 66 145/63 08/20/18 21:00 Room Air Room Air 08/20/18 20:31 64 16 Nasal Cannula 2.0 28 08/20/18 20:00 97.5 66 17 145/63 (90) 95 08/20/18 17:48 98.2 62 18 136/53 (80) 98 Intake and Output 08/20/18 08/21/18 19:00 07:00 Intake Total 360 ml Output Total 1050 ml Balance 360 ml -1050 ml Intake Oral 360 ml Output Urine Total 1050 ml # Voids 1 # Bowel Movements 2 Laboratory Tests 08/21/18 06:30: White Blood Count 5.2, Red Blood Count 3.02L, Hemoglobin 9.4L, Hematocrit 31.1L , Mean Corpuscular Volume 103H, Mean Corpuscular Hemoglobin 31.2H, Mean Corpuscular Hemoglobin Concent 30.3L, Red Cell Distribution Width 14.0, Platelet Count 81#L, Mean Platelet Volume 7.0, Neutrophils (%) (Auto) , Lymphocytes (%) (Auto) , Monocytes (%) (Auto) , Eosinophils (%) (Auto) , Basophils (%) (Auto) , Differential Total Cells Counted 100, Neutrophils % ( Manual) 76H, Lymphocytes % (Manual) 11L, Monocytes % (Manual) 8, Eosinophils % ( Manual) 2, Basophils % (Manual) 0, Band Neutrophils 3, Platelet Estimate Adequate, Platelet Morphology Normal, [place] Cells 1+, Acanthocytes 1+, Sodium Level 138, Potassium Level 5.1, Chloride Level 108H, Carbon Dioxide Level 17L, Anion Gap 13, Blood Urea Nitrogen 54H, Creatinine 3.1H, Estimat Glomerular Filtration Rate 18.9, Glucose Level 224H, Calcium Level 8.6 Height (Feet): 5 Height (Inches): 2.00 Weight (Pounds): 165 Objective VITAL SIGNS: have been reviewed and are otherwise stable HEAD AND NECK: No JVP. No LAD. No thyromegaly. Extraocular movements intact. perrl LUNGS: Decreased breathing sounds on both sides. CARDIAC: Regular rate and rhythm. S1-S2. No murmur. No rub. ABDOMEN: Soft, nontender, and nondistended. EXTREMITIES: 1+ edema. No clubbing. No cyanosis. Amandeep Howell MD Aug 21, 2018 14:53
[2018-08-21 16:00] VITALS: BP 149/66
--- NOTE | 2018-08-21 17:48 | General Progress Note ---
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 D/w Dr. Hagen and he concurred. Subjective Date patient seen: Aug 21, 2018 Time patient seen: 05:00 - pm Allergies: Coded Allergies: LISINOPRIL (Verified Allergy, Unknown, 07/16/18) LOSARTAN (Verified Allergy, Unknown, 07/16/18) Subjective REVIEW OF SYSTEMS: Denies rash, fever, chills, sweating, dizziness, drowsiness, blurred vision, sore throat, change in her weight. No shortness of breath at this time. No chest pain, palpitations, or cough. No nausea, vomiting, diarrhea, or blood in the stool or urine. No bowel or bladder incontinence. She is complaining of generalized body pain. SUBJECTIVE: Patient is in bed pain is tolerated on the Percocet. Objective Last 24 Hour Vital Signs Date Time Temp Pulse Resp B/P (MAP) Pulse Ox O2 Delivery O2 Flow Rate FiO2 08/21/18 16:00 97.9 63 18 149/66 (93) 96 08/21/18 13:59 126/82 08/21/18 13:58 126/82 08/21/18 12:00 98.1 65 18 126/82 (97) 94 08/21/18 08:50 75 134/66 08/21/18 08:49 75 134/66 08/21/18 08:05 Room Air Room Air 08/21/18 08:00 97.9 75 20 134/66 (88) 94 08/21/18 07:33 98 12 Nasal Cannula 2.0 28 08/21/18 06:06 141/59 08/21/18 06:06 141/59 08/21/18 04:00 97.8 64 16 141/59 (86) 98 08/21/18 00:00 96.5 63 18 122/46 (71) 98 08/20/18 21:52 143/63 08/20/18 21:00 66 145/63 08/20/18 21:00 Room Air Room Air 08/20/18 20:31 64 16 Nasal Cannula 2.0 28 08/20/18 20:00 97.5 66 17 145/63 (90) 95 Intake and Output 1/13/19 1/14/19 19:00 07:00 Intake Total 360 ml Output Total 1050 ml Balance 360 ml -1050 ml Intake Oral 360 ml Output Urine Total 1050 ml # Voids 1 # Bowel Movements 2 Laboratory Tests 08/21/18 06:30: White Blood Count 5.2, Red Blood Count 3.02L, Hemoglobin 9.4L, Hematocrit 31.1L , Mean Corpuscular Volume 103H, Mean Corpuscular Hemoglobin 31.2H, Mean Corpuscular Hemoglobin Concent 30.3L, Red Cell Distribution Width 14.0, Platelet Count 81#L, Mean Platelet Volume 7.0, Neutrophils (%) (Auto) , Lymphocytes (%) (Auto) , Monocytes (%) (Auto) , Eosinophils (%) (Auto) , Basophils (%) (Auto) , Differential Total Cells Counted 100, Neutrophils % ( Manual) 76H, Lymphocytes % (Manual) 11L, Monocytes % (Manual) 8, Eosinophils % ( Manual) 2, Basophils % (Manual) 0, Band Neutrophils 3, Platelet Estimate Adequate, Platelet Morphology Normal, [place] Cells 1+, Acanthocytes 1+, Sodium Level 138, Potassium Level 5.1, Chloride Level 108H, Carbon Dioxide Level 17L, Anion Gap 13, Blood Urea Nitrogen 54H, Creatinine 3.1H, Estimat Glomerular Filtration Rate 18.9, Glucose Level 224H, Calcium Level 8.6 Height (Feet): 5 Height (Inches): 2.00 Weight (Pounds): 165 Objective GENERAL: Alert, awake, and oriented. LUNGS: Decreased breath sounds bilaterally. HEART: S1 and S2 regular. ABDOMEN: Benign. EXTREMITIES: No cyanosis. No clubbing. NEURO: No changes. Kwabena Verduzco Aug 21, 2018 17:48
--- NOTE | 2018-08-21 18:00 | NUR ---
CASE MANAGEMENT:REVIEW 08/21/18 SI: AC/CHR RENAL FAILURE. PLEURAL EFFUSION THALAMIC PAIN SYNDROME. PERIPHERAL NEUROPATHY 97.9 63 18 149/66 96% ON 2L/NC H/H-9.4/31.1 PLT-81 BUN+54 CR+3.1 IS: PROCRIT SQ MWF SS INSULIN AC+HS PERCOCET 10/325MG PO Q4HRS PRN (REQUESTED X4) NORVASC PO QD PLAVIX PO QD PROTONIX PO QD CLONIDINE PO Q8HRS IV LASIX Q8HRS HYDRALAZINE PO Q8HR COREG PO Q12 HEPARIN SQ Q12 REMERON PO QHS TRAZODONE PO QHS BICITR PO BID (STARTED ON 08/20/18) STARLIX PO TID : MED/SURG STATUS DCP: HOME PLAN: PATIENT HAS WHEELCHAIR AND BEDSIDE COMMODE AT BEDSIDE FROM [facility] WAITING FOR OXYGEN DELIVERY BY [facility]
--- NOTE | 2018-08-21 19:34 | NUR ---
HAND-OFF: Report given to Nguyen PRADO RN
--- NOTE | 2018-08-21 19:35 | NUR ---
NURSE NOTES: Received patient in bed awake. A&O x4. Requesting to have a bed bath. Spoke with VITO [place] will give one. Patient complaining of pain will give pain medication. IV line intact. Call light within reach. Will continue to monitor.
[2018-08-21 20:00] VITALS: BP 147/66
[2018-08-21] MEDS ORDERED: Epogen (for non ESRD use) SUBQ SCH (21:00)
[2018-08-21] MEDS: TraZODone 50mg tab ORAL SCH (21:05)
[2018-08-21] MEDS: NovoLOG Insulin Flexpen SUBQ SCH (21:09)
[2018-08-22] VITALS: BP 154/77
[2018-08-22 04:00] VITALS: BP 140/58
[2018-08-22] MEDS: HydrALAZINE 50mg tab ORAL SCH ×2 (06:11→14:09)
[2018-08-22] MEDS: NovoLOG Insulin Flexpen SUBQ SCH ×2 (06:12→11:47)
--- NOTE | 2018-08-22 06:42 | General Progress Note ---
Assessment/Plan Problem List: (1) Acute on chronic renal failure ICD Codes: N17.9 - Acute kidney failure, unspecified; N18.9 - Chronic kidney disease, unspecified SNOMED: 449201967 Qualifiers: Qualified Codes: N17.9 - Acute kidney failure, unspecified; N18.9 - Chronic kidney disease, unspecified (2) Hypertension ICD Codes: I10 - Essential (primary) hypertension SNOMED: 54236086 (3) NSTEMI (non-ST elevated myocardial infarction) ICD Codes: I21.4 - Non-ST elevation (NSTEMI) myocardial infarction SNOMED: 405905652 (4) Diabetes mellitus ICD Codes: E11.9 - Type 2 diabetes mellitus without complications SNOMED: 74945091 (5) Cardiomegaly ICD Codes: I51.7 - Cardiomegaly SNOMED: 1856735 Assessment/Plan add Levemir 10 units daily add Januvia 25 mg daily continue Starlix 120 mg ac tid continue NISS ac / hs Subjective Allergies: Coded Allergies: LISINOPRIL (Verified Allergy, Unknown, 07/16/18) LOSARTAN (Verified Allergy, Unknown, 07/16/18) All Systems: reviewed and negative except above Subjective events noted Objective Last 24 Hour Vital Signs Date Time Temp Pulse Resp B/P (MAP) Pulse Ox O2 Delivery O2 Flow Rate FiO2 08/22/18 06:11 140/58 08/22/18 06:11 140/58 08/22/18 04:00 98.0 66 18 140/58 (85) 93 08/22/18 00:00 97.7 68 18 154/77 (102) 97 08/21/18 23:51 66 20 Nasal Cannula 2.0 28 08/21/18 22:09 139/65 08/21/18 22:09 139/65 08/21/18 21:05 64 147/66 08/21/18 21:00 Nasal Cannula 2.0 Nasal Cannula 2.0 08/21/18 20:00 98.3 64 16 147/66 (93) 98 08/21/18 16:00 97.9 63 18 149/66 (93) 96 08/21/18 13:59 126/82 08/21/18 13:58 126/82 08/21/18 12:00 98.1 65 18 126/82 (97) 94 08/21/18 08:50 75 134/66 08/21/18 08:49 75 134/66 08/21/18 08:05 Room Air Room Air 08/21/18 08:00 97.9 75 20 134/66 (88) 94 08/21/18 07:33 98 12 Nasal Cannula 2.0 28 Intake and Output 08/21/18 08/22/18 18:59 06:59 Intake Total 840 ml Output Total 600 ml 400 ml Balance 240 ml -400 ml Intake Oral 840 ml Output Urine Total 600 ml 400 ml # Voids 2 # Bowel Movements 1 Height (Feet): 5 Height (Inches): 2.00 Weight (Pounds): 165 General Appearance: no apparent distress Neck: normal alignment Cardiovascular: tachycardia Respiratory/Chest: decreased breath sounds Abdomen: normal bowel sounds Pelvis: normal external exam Edema: 1+ Arm (L), 1+ Arm (R), 1+ Leg (L), 1+ Leg (R), 1+ Pedal (L), 1+ Pedal ( R), 1+ Generalized Objective Current Medications Medications (Trade) Dose Ordered Sig/Zara Route PRN Reason Start Time Stop Time Status Last Admin Dose Admin Acetaminophen (Tylenol) 650 mg Q4H PRN ORAL Mild Pain/Temp > 100.5 08/20/18 15:41 09/08/18 15:40 Albuterol/ Ipratropium (Albuterol/ Ipratropium) 3 ml Q4H PRN HHN Shortness of Breath 08/20/18 16:00 08/24/18 15:59 Amlodipine Besylate (Norvasc) 10 mg DAILY ORAL 08/21/18 09:00 09/09/18 08:59 08/21/18 08:50 Atorvastatin Calcium (Lipitor) 10 mg BEDTIME ORAL 08/20/18 21:00 09/08/18 20:59 08/21/18 21:05 Carvedilol (Coreg) 37.5 mg EVERY 12 HOURS ORAL 08/20/18 21:00 09/08/18 20:59 08/21/18 21:05 Clonidine HCl (Catapres Tab) 0.1 mg EVERY 8 HOURS ORAL 08/20/18 22:00 09/09/18 21:59 08/22/18 06:11 Clopidogrel Bisulfate (Plavix) 75 mg DAILY ORAL 08/21/18 09:00 09/09/18 08:59 08/21/18 08:48 Dextrose (Dextrose 50%) 25 ml Q30M PRN IV Hypoglycemia 08/21/18 16:30 09/20/18 16:29 Dextrose (Dextrose 50%) 50 ml Q30M PRN IV Hypoglycemia 08/21/18 16:30 09/20/18 16:29 Epoetin Yordan (Procrit (for non ESRD use)) 5,000 units TUE-TUE-TUE SUBQ 08/21/18 21:00 09/10/18 20:59 08/21/18 21:08 Furosemide (Lasix) 20 mg Q8HR IV 08/20/18 22:00 09/19/18 08:33 08/22/18 06:11 Gabapentin (Neurontin) 300 mg Q12HR ORAL 08/20/18 21:00 09/08/18 20:59 08/21/18 21:06 Heparin Sodium (Porcine) (Heparin 5000 units/ml) 5,000 units EVERY 12 HOURS SUBQ 08/20/18 21:00 09/08/18 20:59 08/20/18 21:54 Hydralazine HCl (Apresoline) 100 mg Q8HR ORAL 08/20/18 22:00 09/09/18 13:59 08/22/18 06:11 Insulin Aspart (NovoLOG) BEFORE MEALS AND HS SUBQ 08/21/18 21:00 09/20/18 20:59 08/22/18 06:12 Minoxidil (Loniten) 2.5 mg Q4H PRN ORAL sbp> 165 08/20/18 15:43 09/08/18 15:42 Mirtazapine (Remeron) 7.5 mg BEDTIME ORAL 08/20/18 21:00 09/08/18 20:59 08/21/18 21:05 Nateglinide (Starlix) 120 mg TIAC ORAL 08/20/18 16:30 09/08/18 16:29 08/22/18 06:11 Ondansetron HCl (Zofran) 4 mg Q6H PRN IVP Nausea & Vomiting 08/20/18 15:43 09/08/18 15:42 Oxycodone/ Acetaminophen (Percocet 10/325) 1 tab Q4H PRN ORAL moderate-severe (4-10) pain 08/21/18 17:50 08/28/18 17:49 08/22/18 05:32 Pantoprazole (Protonix) 40 mg DAILY ORAL 08/21/18 09:00 09/09/18 08:59 08/21/18 08:49 Polyethylene Glycol (Miralax) 17 gm DAILYPRN PRN ORAL Constipation 08/20/18 15:43 09/19/18 15:42 Sodium Citrate (Bicitra) 30 ml BID ORAL 08/20/18 18:00 09/10/18 17:59 08/21/18 17:09 Trazodone HCl (Desyrel) 50 mg BEDTIME ORAL 08/20/18 21:00 09/08/18 20:59 08/21/18 21:05 Item Value Date Time Bedside Blood Glucose 266 mg/dl H 08/22/18 0627 Bedside Blood Glucose 198 mg/dl H 08/21/18 2109 Bedside Blood Glucose 229 mg/dl H 08/21/18 1631 Bedside Blood Glucose 204 mg/dl H 08/21/18 1117 Bedside Blood Glucose 233 mg/dl H 08/21/18 0631 Harish Figueredo MD Aug 22, 2018 06:42
[2018-08-22] MEDS ORDERED: sitaGLIPtin 25mg tab ORAL SCH (06:45)
--- NOTE | 2018-08-22 07:34 | NUR ---
HAND-OFF: Report given to JENNIFER Marvin.
--- NOTE | 2018-08-22 07:47 | NUR ---
Received report from JENNIFER Cedillo. patient in bed, alert, verbally responsive. no distress noted. call light within reach. bed in lowest position. will continue to monitor.
[2018-08-22 07:52] VITALS: BP 149/61
[2018-08-22] MEDS ORDERED: Carvedilol 6.25mg Tab ONE (08:24)
[2018-08-22] MEDS: Sodium Citrate 30ml ORAL SCH (08:32)
[2018-08-22] MEDS: Heparin 5000 units/ml inj SUBQ SCH (08:33)
--- NOTE | 2018-08-22 08:51 | General Progress Note ---
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 D/w Dr. Hagen and he concurred. Subjective Date patient seen: Aug 22, 2018 Time patient seen: 08:00 - am Allergies: Coded Allergies: LISINOPRIL (Verified Allergy, Unknown, 07/16/18) LOSARTAN (Verified Allergy, Unknown, 07/16/18) Subjective REVIEW OF SYSTEMS: Denies rash, fever, chills, sweating, dizziness, drowsiness, blurred vision, sore throat, change in her weight. No shortness of breath at this time. No chest pain, palpitations, or cough. No nausea, vomiting, diarrhea, or blood in the stool or urine. No bowel or bladder incontinence. She is complaining of generalized body pain. SUBJECTIVE: Patient in bed pain is tolerated on the Percocet. No new complaints. Objective Last 24 Hour Vital Signs Date Time Temp Pulse Resp B/P (MAP) Pulse Ox O2 Delivery O2 Flow Rate FiO2 08/22/18 08:32 65 149/61 08/22/18 07:52 96.1 65 20 149/61 (90) 98 08/22/18 06:11 140/58 08/22/18 06:11 140/58 08/22/18 04:00 98.0 66 18 140/58 (85) 93 08/22/18 00:00 97.7 68 18 154/77 (102) 97 08/21/18 23:51 66 20 Nasal Cannula 2.0 28 08/21/18 22:09 139/65 08/21/18 22:09 139/65 08/21/18 21:05 64 147/66 08/21/18 21:00 Nasal Cannula 2.0 Nasal Cannula 2.0 08/21/18 20:00 98.3 64 16 147/66 (93) 98 08/21/18 16:00 97.9 63 18 149/66 (93) 96 08/21/18 13:59 126/82 08/21/18 13:58 126/82 08/21/18 12:00 98.1 65 18 126/82 (97) 94 Intake and Output 08/21/18 08/22/18 19:00 07:00 Intake Total 840 ml Output Total 600 ml 400 ml Balance 240 ml -400 ml Intake Oral 840 ml Output Urine Total 600 ml 400 ml # Voids 2 # Bowel Movements 1 Laboratory Tests 08/22/18 07:39: White Blood Count [Pending], Red Blood Count [Pending], Hemoglobin [Pending], Hematocrit [Pending], Mean Corpuscular Volume [Pending], Mean Corpuscular Hemoglobin [Pending], Mean Corpuscular Hemoglobin Concent [Pending], Red Cell Distribution Width [Pending], Platelet Count [Pending], Mean Platelet Volume [ Pending], Neutrophils (%) (Auto) [Pending], Lymphocytes (%) (Auto) [Pending], Monocytes (%) (Auto) [Pending], Eosinophils (%) (Auto) [Pending], Basophils (%) (Auto) [Pending], Sodium Level [Pending], Potassium Level [Pending], Chloride Level [Pending], Carbon Dioxide Level [Pending], Blood Urea Nitrogen [Pending], Creatinine [Pending], Estimat Glomerular Filtration Rate [Pending], Glucose Level [Pending], Calcium Level [Pending] Height (Feet): 5 Height (Inches): 2.00 Weight (Pounds): 165 Objective GENERAL: Alert, awake, and oriented. LUNGS: Decreased breath sounds bilaterally. HEART: S1 and S2 regular. ABDOMEN: Benign. EXTREMITIES: No cyanosis. No clubbing. NEURO: No changes. Kwabena Verduzco Aug 22, 2018 08:51
[2018-08-22] MEDS: Carvedilol 12.5mg tab ORAL SCH (08:54)
[2018-08-22] MEDS ORDERED: Levemir Flexpen SUBQ SCH (09:00)
[2018-08-22 09:13] LABS: BASOPHILS % (AUTO) 0.8 % (0.0-2.0); EOSINOPHILS % (AUTO) 3.1 % (0.0-3.0); HEMATOCRIT 28.2 % (37.0-47.0); HEMOGLOBIN 8.9 G/DL (12.0-16.0); LYMPHOCYTES % (AUTO) 15.3 % (20.0-45.0); MEAN CORPUSCULAR VOLUME 101 FL (80-99); MONOCYTES % (AUTO) 9.1 % (1.0-10.0); NEUTROPHILS % (AUTO) 71.7 % (45.0-75.0); PLATELET COUNT 223 K/UL (150-450); RED BLOOD COUNT 2.78 M/UL (4.20-5.40); RED CELL DISTRIBUTION WIDTH 13.9 % (11.6-14.8); WHITE BLOOD COUNT 6.5 K/UL (4.8-10.8)
[2018-08-22 09:21] LABS: ANION GAP 11 mmol/L (5-15); BLOOD UREA NITROGEN 46 mg/dL (7-18); CALCIUM 8.4 MG/DL (8.5-10.1); CARBON DIOXIDE 20 MMOL/L (21-32); CHLORIDE 107 MMOL/L (98-107); POTASSIUM 4.3 MMOL/L (3.5-5.1); SODIUM 138 MMOL/L (136-145)
--- NOTE | 2018-08-22 10:10 | NUR ---
DISCHARGE PLANNING WAITED ALL DAY YESTERDAY FOR [facility] TO RECEIVE AUTHORIZATION FROM [place] [facility] FOR HOME OXYGEN. OXYGEN WAS SUPPOSE TO BE DELIVERED TO BEDSIDE LAST NIGHT OXYGEN IS CURRENTLY NOT AT BEDSIDE PACKAGER HEAD CALLED [facility] AND LEFT A VMM FOR [facility] T: [phone] NEED E CYLINDER DELIVERED TO BEDSIDE PRIOR TO DISCHARGE
--- NOTE | 2018-08-22 10:15 | NUR ---
NURSE NOTES: Faxed patients info to the [facility] for the Percocet order for discharge
[2018-08-22 12:00] VITALS: BP 143/60
--- NOTE | 2018-08-22 12:24 | NUR ---
DISCHARGE PLANNED WHEEL CHAIR IS AT BEDSIDE BEDSIDE COMMODE IS AT BEDSIDE PER [facility] PORTABLE OXYGEN HAS BEEN DELIVERED TO BEDSIDE [facility] HAS BEEN SCHEDULED FOR 1500 OFFICE ENGINEER TO TAKE PATIENT HOME...THEY ARE AWARE PATIENT HAS A WHEELCHAIR, BEDSIDE COMMODE AND PORTABLE OXYGEN THAT NEEDS TO GO WITH HER) SPOKE TO NURSE EASON ABOUT CALLING DAUGHTER TO LET HER KNOW ALL OF THE ABOVE Addendum: 08/22/18 at 1238 by BRITTANY CASTANON LVN LVN WHEN PATIENT GETS HOME SHE NEEDS TO CALL THE PHONE NUMBER ON THE TANK SO THEY CAN DELIVER THE CONCENTRATOR FOR THE HOME
[2018-08-22] MEDS ORDERED: ATORVASTATIN CA10 MG ORAL (13:17)
[2018-08-22] MEDS ORDERED: CLONIDINE HCL0.1 MG PO (13:24)
[2018-08-22] MEDS ORDERED: GABAPENTIN300 MG ORAL (13:26)
[2018-08-22] MEDS ORDERED: HYDRALAZINE HCL50 MG ORAL (13:26)
[2018-08-22] MEDS ORDERED: STARLIX60 MG ORAL (13:30)
--- NOTE | 2018-08-22 13:38 | General Progress Note ---
Assessment/Plan Problem List: (1) Acute on chronic renal failure ICD Codes: N17.9 - Acute kidney failure, unspecified; N18.9 - Chronic kidney disease, unspecified SNOMED: 117496640 Qualifiers: Qualified Codes: N17.9 - Acute kidney failure, unspecified; N18.9 - Chronic kidney disease, unspecified (2) Anemia ICD Codes: D64.9 - Anemia, unspecified SNOMED: 860420572 (3) Hypertension ICD Codes: I10 - Essential (primary) hypertension SNOMED: 11675799 (4) Diabetes mellitus ICD Codes: E11.9 - Type 2 diabetes mellitus without complications SNOMED: 10364210 Status: stable, progressing Assessment/Plan pulm tx prn bp bs control dc w hh if clear Subjective Constitutional: Reports: weakness Allergies: Coded Allergies: LISINOPRIL (Verified Allergy, Unknown, 07/16/18) LOSARTAN (Verified Allergy, Unknown, 07/16/18) All Systems: reviewed and negative except above Subjective o2nc calm in bed Objective Last 24 Hour Vital Signs Date Time Temp Pulse Resp B/P (MAP) Pulse Ox O2 Delivery O2 Flow Rate FiO2 08/22/18 12:00 97.2 63 18 143/60 (87) 99 08/22/18 09:00 Nasal Cannula 2.0 Nasal Cannula 2.0 08/22/18 09:00 Nasal Cannula 2.0 Nasal Cannula 2.0 08/22/18 08:54 65 149/61 08/22/18 08:32 65 149/61 08/22/18 07:52 96.1 65 20 149/61 (90) 98 08/22/18 06:11 140/58 08/22/18 06:11 140/58 08/22/18 04:00 98.0 66 18 140/58 (85) 93 08/22/18 00:00 97.7 68 18 154/77 (102) 97 08/21/18 23:51 66 20 Nasal Cannula 2.0 28 08/21/18 22:09 139/65 08/21/18 22:09 139/65 08/21/18 21:05 64 147/66 08/21/18 21:00 Nasal Cannula 2.0 Nasal Cannula 2.0 08/21/18 20:00 98.3 64 16 147/66 (93) 98 08/21/18 16:00 97.9 63 18 149/66 (93) 96 08/21/18 13:59 126/82 08/21/18 13:58 126/82 Intake and Output 08/21/18 08/22/18 19:00 07:00 Intake Total 840 ml Output Total 600 ml 400 ml Balance 240 ml -400 ml Intake Oral 840 ml Output Urine Total 600 ml 400 ml # Voids 2 # Bowel Movements 1 Laboratory Tests 08/22/18 07:39: White Blood Count 6.5, Red Blood Count 2.78L, Hemoglobin 8.9L, Hematocrit 28.2L , Mean Corpuscular Volume 101H, Mean Corpuscular Hemoglobin 32.0H, Mean Corpuscular Hemoglobin Concent 31.6L, Red Cell Distribution Width 13.9, Platelet Count 223#, Mean Platelet Volume 7.1, Neutrophils (%) (Auto) 71.7, Lymphocytes (%) (Auto) 15.3L, Monocytes (%) (Auto) 9.1, Eosinophils (%) (Auto) 3.1H, Basophils (%) (Auto) 0.8, Sodium Level 138, Potassium Level 4.3, Chloride Level 107, Carbon Dioxide Level 20L, Anion Gap 11, Blood Urea Nitrogen 46H, Creatinine 3.0H, Estimat Glomerular Filtration Rate 19.6, Glucose Level 221H, Calcium Level 8.4L Height (Feet): 5 Height (Inches): 2.00 Weight (Pounds): 165 General Appearance: lethargic EENT: normal ENT inspection Neck: normal alignment Cardiovascular: normal peripheral pulses, normal rate, regular rhythm Respiratory/Chest: chest wall non-tender, decreased breath sounds Abdomen: normal bowel sounds, non tender, soft Extremities: normal inspection Edema: no edema noted Arm (L), no edema noted Arm (R), no edema noted Leg (L), no edema noted Leg (R), no edema noted Pedal (L), no edema noted Pedal (R), no edema noted Generalized Neurologic: responsive, motor weakness Skin: normal pigmentation, warm/dry Naun Geiger DO Aug 22, 2018 13:38
--- NOTE | 2018-08-22 14:07 | NUR ---
PT HAS BEEN REFERRED TO [facility] SPOKE TO [facility] AND THEY WILL ACCEPTING PATIENT.
[2018-08-22] MEDS ORDERED: PANTOPRAZOLE SO40 MG ORAL (14:18)
[2018-08-22] MEDS ORDERED: JANUVIA25 MG ORAL (14:20)
--- NOTE | 2018-08-22 14:21 | NUR ---
RD ASSESSMENT & RECOMMENDATIONS SEE CARE ACTIVITY FOR COMPLETE ASSESSMENT DAILY ESTIMATED NEEDS: Needs based on Renal- no HD, DM, cardiac 55.5kg adj 25-30 kcals/kg 4685-2858 total kcals .8-1.2 g protein/kg 44-67 g total protein 25-30 mL/kg 8539-8131 total fluid mLs NUTRITION DIAGNOSIS: Altered nutrition related lab values r/t renal dysfunction, DM, and cardiac history as evidenced by elev creat (3.6-> 3.0), elev BUN (46), elev Phos (5.0), K 5.1, elev BNP (>33359), elev BP, elev BGs (200's). CURRENT DIET: RENAL PO DIET RECOMMENDATIONS: RENAL, CCHO LOW ADDITIONAL RECOMMENDATIONS: 1) Monitor lytes and need for dietary restriction (elev phos, K elev now) 2) Obtain an updated standing scale wt as able 3) NEPRO QD w/ current variable po intake 4) Add accucheck w/ SSI- DM dx, elev BGs . .
[2018-08-22] MEDS ORDERED: BICITRA30 ML PO (14:23)
[2018-08-22 16:00] VITALS: BP 149/62
--- NOTE | 2018-08-22 16:33 | NUR ---
NURSE NOTES: patient discharged to home via ambulance. oxygen tank, commode, w/c, prescribed percocet as ordered. no distress noted. no c/o pain of pain, stable upon discharge. IV removed. no bleeding,ID band removed. F/C in place. discharge package and instruction given and obtained sign. checked belonging with patient. reviewed and counted with patient.
--- NOTE | 2018-08-22 16:42 | General Progress Note ---
Assessment/Plan Assessment/Plan #. Anemia of chronic disease - patient with ongoing kidney damage, cr is elevated approx 2-2.5 baseline, now 3-4 range --> anemia panel has reviewed, ferritin 222, has minimal iron depletion --> appreciate nephrology consult --> continue on epogen --> transfuse if hgb is <7 --> hemolysis w/u has been reviewed --> trend hgb 8.9-->8.4-->8.5-->10.7-->9-->9.1-->8.2-->8.5 --> ON EPO SQ AND IRON IV #Thrombocytopenia plt trending down --> trend plt 81 # Leukopenia wbc in the 4-6 range --> hepatitis panel negative, hiv neg --> us abd shows borderline spleen enlargement # Acute versus chronic renal failure. as per renal etiology of acute renal failure is cardiorenal syndrome, prerenal azotemia versus unstable --> bp to improve on current meds --> nephro recs appreciated #. Coagulopathy with elevated inr --> recheck in future prn, now improved #. CHF, but at this point the patient seems to be euvolemic --> as per cardiology #. Possible renal osteodystrophy #. Uncontrolled hypertension. --> now better #. Pleural eff s/p thora The timing of this note does not necessarily reflect the time of the patient was seen Greatly appreciate consultation! Subjective Constitutional: Denies: no symptoms, chills, diaphoresis, fever, malaise, weakness, other HEENT: Denies: no symptoms, eye pain, blurred vision, tearing, double vision, ear pain, ear discharge, nose pain, nose congestion, throat pain, throat swelling, mouth pain, mouth swelling, other Cardiovascular: Denies: no symptoms, chest pain, edema, irregular heart rate, lightheadedness, palpitations, syncope, other Respiratory: Denies: no symptoms, cough, orthopnea, shortness of breath, SOB with excertion, SOB at rest, sputum, stridor, wheezing, other Genitourinary: Denies: no symptoms, burning, discharge, frequency, flank pain, hematuria, incontinence, pain, urgency, other Neurologic/Psychiatric: Denies: no symptoms, anxiety, depressed, emotional problems, headache, numbness, paresthesia, pre-existing deficit, seizure, tingling, tremors, weakness, other Endocrine: Denies: no symptoms, excessive sweating, flushing, intolerance to cold, intolerance to heat, increased hunger, increased thirst, increased urine, unexplained weight gain, unexplained weight loss, other Hematologic/Lymphatic: Denies: no symptoms, anemia, easy bleeding, easy bruising, other Allergies: Coded Allergies: LISINOPRIL (Verified Allergy, Unknown, 07/16/18) LOSARTAN (Verified Allergy, Unknown, 07/16/18) Subjective 08/11/18: Pt is awake and resting in bed, denies acute distress, no events reported, cbc reviewed. 08/12/18: Pt is seen in the room, resting in bed, watching T.V, leukocytosis resolved,on wire setter 08/13/18:Pt is seen in the room, resting in bed, Aox3. plt 170 today, no events reported 08/14/18: no events overnight, no major changes noted, cr is higher 08/15/18: Pt is awake and calm, no major events , hgh remains low at 9 08/16: no events noted, h/h remains relatively stable, a+o x3, cbc reviewed 08/17: Pt is awake and resting in bed, will continue on Percocet, remains stable , cbc reviewed. 08/18: continuing on percocet as per pain, otherwise no complaints, potential dc soon per pcp 08/19: no events to report, no fevers or chills, hgb 8.2 08/20: alert and oriented x4 with no complaints or s/s of pain, SOB, or n/v, h/h stable 08/21: Pt is awake and comfortable, remains afebrile, plt 81 today. 08/22: Pt is resting in bed, comfortable, no events reported plt at 233. Objective Last 24 Hour Vital Signs Date Time Temp Pulse Resp B/P (MAP) Pulse Ox O2 Delivery O2 Flow Rate FiO2 08/22/18 16:00 97.0 66 20 149/62 (91) 98 08/22/18 14:09 143/60 08/22/18 14:09 143/60 08/22/18 12:00 97.2 63 18 143/60 (87) 99 08/22/18 09:00 Nasal Cannula 2.0 Nasal Cannula 2.0 08/22/18 09:00 Nasal Cannula 2.0 Nasal Cannula 2.0 08/22/18 08:54 65 149/61 08/22/18 08:32 65 149/61 08/22/18 07:52 96.1 65 20 149/61 (90) 98 08/22/18 06:11 140/58 08/22/18 06:11 140/58 08/22/18 04:00 98.0 66 18 140/58 (85) 93 08/22/18 00:00 97.7 68 18 154/77 (102) 97 08/21/18 23:51 66 20 Nasal Cannula 2.0 28 08/21/18 22:09 139/65 08/21/18 22:09 139/65 08/21/18 21:05 64 147/66 08/21/18 21:00 Nasal Cannula 2.0 Nasal Cannula 2.0 08/21/18 20:00 98.3 64 16 147/66 (93) 98 Intake and Output 08/21/18 08/22/18 18:59 06:59 Intake Total 840 ml Output Total 600 ml 400 ml Balance 240 ml -400 ml Intake Oral 840 ml Output Urine Total 600 ml 400 ml # Voids 2 # Bowel Movements 1 Laboratory Tests 08/22/18 07:39: White Blood Count 6.5, Red Blood Count 2.78L, Hemoglobin 8.9L, Hematocrit 28.2L , Mean Corpuscular Volume 101H, Mean Corpuscular Hemoglobin 32.0H, Mean Corpuscular Hemoglobin Concent 31.6L, Red Cell Distribution Width 13.9, Platelet Count 223#, Mean Platelet Volume 7.1, Neutrophils (%) (Auto) 71.7, Lymphocytes (%) (Auto) 15.3L, Monocytes (%) (Auto) 9.1, Eosinophils (%) (Auto) 3.1H, Basophils (%) (Auto) 0.8, Sodium Level 138, Potassium Level 4.3, Chloride Level 107, Carbon Dioxide Level 20L, Anion Gap 11, Blood Urea Nitrogen 46H, Creatinine 3.0H, Estimat Glomerular Filtration Rate 19.6, Glucose Level 221H, Calcium Level 8.4L Height (Feet): 5 Height (Inches): 2.00 Weight (Pounds): 165 Objective VITAL SIGNS: have been reviewed and are otherwise stable HEAD AND NECK: No JVP. No LAD. No thyromegaly. Extraocular movements intact. perrl LUNGS: Decreased breathing sounds on both sides. CARDIAC: Regular rate and rhythm. S1-S2. No murmur. No rub. ABDOMEN: Soft, nontender, and nondistended. EXTREMITIES: 1+ edema. No clubbing. No cyanosis. Amandeep Howell MD Aug 22, 2018 16:42
--- NOTE | 2018-08-22 23:27 | Cardiology Progress Note ---
Assessment/Plan Assessment/Plan 1. Accelerated hypertension, well controlled, continue hydralazine, carvedilol, amlodipine and clonidine. 2. Dyspnea most likely secondary to bilateral pleural effusion, status post right thoracentesis yielding about 500 mL of fluid. 2D echocardiography July 17, 2018 showed normal LV systolic and diastolic function with LVEF of approximately 55%. Continue IV antibiotics, pulmonary toilet, and diuretic therapy. 3. Moderate pulmonary hypertension likely due to CKD. 4. Stage 5 CKD with small pericardial effusion, refused HD. 5. Anemia, possible chronic kidney disease. 6. History of CVA with left hemiparesis, consider aspirin and statins. Subjective Subjective Sinus rhythm at rate of 66. On NC oxygen. Objective Last 24 Hour Vital Signs Date Time Temp Pulse Resp B/P (MAP) Pulse Ox O2 Delivery O2 Flow Rate FiO2 08/22/18 16:00 97.0 66 20 149/62 (91) 98 08/22/18 14:09 143/60 08/22/18 14:09 143/60 08/22/18 12:00 97.2 63 18 143/60 (87) 99 08/22/18 09:00 Nasal Cannula 2.0 Nasal Cannula 2.0 08/22/18 09:00 Nasal Cannula 2.0 Nasal Cannula 2.0 08/22/18 08:54 65 149/61 08/22/18 08:32 65 149/61 08/22/18 07:52 96.1 65 20 149/61 (90) 98 08/22/18 06:11 140/58 08/22/18 06:11 140/58 08/22/18 04:00 98.0 66 18 140/58 (85) 93 08/22/18 00:00 97.7 68 18 154/77 (102) 97 08/21/18 23:51 66 20 Nasal Cannula 2.0 28 Intake and Output 08/21/18 08/22/18 19:00 07:00 Intake Total 840 ml Output Total 600 ml 400 ml Balance 240 ml -400 ml Intake Oral 840 ml Output Urine Total 600 ml 400 ml # Voids 2 # Bowel Movements 1 2D Echo: LVEF 65%, Mild MR, Normal LVD, RVSP 56mmHg Laboratory Tests Test 08/22/18 07:39 White Blood Count 6.5 K/UL (4.8-10.8) Red Blood Count 2.78 M/UL (4.20-5.40) L Hemoglobin 8.9 G/DL (12.0-16.0) L Hematocrit 28.2 % (37.0-47.0) L Mean Corpuscular Volume 101 FL (80-99) H Mean Corpuscular Hemoglobin 32.0 PG (27.0-31.0) H Mean Corpuscular Hemoglobin Concent 31.6 G/DL (32.0-36.0) L Red Cell Distribution Width 13.9 % (11.6-14.8) Platelet Count 223 K/UL (150-450) # Mean Platelet Volume 7.1 FL (6.5-10.1) Neutrophils (%) (Auto) 71.7 % (45.0-75.0) Lymphocytes (%) (Auto) 15.3 % (20.0-45.0) L Monocytes (%) (Auto) 9.1 % (1.0-10.0) Eosinophils (%) (Auto) 3.1 % (0.0-3.0) H Basophils (%) (Auto) 0.8 % (0.0-2.0) Sodium Level 138 MMOL/L (136-145) Potassium Level 4.3 MMOL/L (3.5-5.1) Chloride Level 107 MMOL/L (98-107) Carbon Dioxide Level 20 MMOL/L (21-32) L Anion Gap 11 mmol/L (5-15) Blood Urea Nitrogen 46 mg/dL (7-18) H Creatinine 3.0 MG/DL (0.55-1.30) H Estimat Glomerular Filtration Rate 19.6 mL/min (>60) Glucose Level 221 MG/DL (74-106) H Calcium Level 8.4 MG/DL (8.5-10.1) L Objective HEENT: Atraumatic and normocephalic. Anicteric. Pupils are equal, round, and reactive to light and accommodation. Extraocular muscles intact. Poor dentition. NECK: JVP less than 5 cm. No carotid bruit. Carotid upstrokes 2+ bilaterally. LUNGS: Bilateral lower lung crackles. Diminished breath sounds on both lungs and the bases. CARDIOVASCULAR: Normal S1, S2. Regular rate and rhythm. No murmurs, gallops, or rubs. ABDOMEN: Soft, nontender, and nondistended. No hepatosplenomegaly. Positive bowel sounds. EXTREMITIES: No evidence of edema, clubbing, or cyanosis. Kwesi Zee MD Aug 22, 2018 23:27
--- NOTE | 2018-08-23 13:48 | NUR ---
INSURANCE ALL CLINICALS AND REVIEWS FAXED TO: [facility] P:[phone] F:[phone] REF#[id number]
--- NOTE | 2018-08-23 15:29 | Discharge Summary ---
Discharge Summary Discharge Summary _ DATE OF ADMISSION: 08/09/2018 DATE OF DISCHARGE: 08/22/2018 DISCHARGED BY: Dr. Geiger REASON FOR ADMISSION: 53 years old female with past medical history of diabetes mellitus, hypertension , hyperlipidemia, CVA, TIA, with left-sided hemiparesis, solitary kidney, chronic kidney disease stage IV, peripheral neuropathy, likely congestive heart failure, prior admission for pleural effusion, anemia, presented to emergency room for evaluation due to shortness of breath. Paramedics pulse oximetry was low and patient started supplemental oxygen. Patient denies chest pain. Patient denied fever and chills. Patient stated that she was just discharged from hospital to be stable. Patient was unable to fill out her prescription for primary care provider since that time. Upon evaluation pulsatility was stable at 100% nonrebreathing mask. Blood pressure 1 severely elevated to 20/117 Laboratory workup revealed mild leukocytosis WBC 11.5, hemoglobin 10.7 hematocrit 33.4. BUN 37, creatinine 2.2. Pro BNP over 35,000. Albumin 2.9. Glucose 209. Lactic acid 1.4. Troponin 0 0.092. EKG revealed normal sinus rhythm no acute ischemic changes Chest x-ray revealed suspected congestive heart failure. Ultrasound of the abdomen revealed nonvisualization of left kidney correlated with the patient stated history of left renal agenesist kidney appears unremarkable without hydronephrosis Patient admitted for further management. CONSULTANTS: manager user experience Dr. Zee pulmonary Dr. Gutiérrez ID specialist Dr. Wooten manager federal Dr. Park rn bone marrow transplant/oncologist Dr. Diehl psychiatrist Dr. San pain specialist Dr. Hagen machine quilt stuffer Dr. Figueredo. HOSPITAL COURSE: Patient admitted to telemetry floor. Supplemental oxygen was titrated to keep pulse oximetry above 92%. Pulmonary toilet provided as needed. Venous duplex done on previous admission in July 2018 revealed no evidence of DVT. Patient declined VQ scan during this admission. Patient started on empiric antibiotics for pneumonia under infectious disease specialist recommendation. Echocardiogram revealed ejection fraction 55%. No evidence of wall motion abnormality. Right ventricular systolic pressure of 44 consistent with pulmonary hypertension. CT of the chest revealed bilateral pleural effusion , larger on the right with small nodes in the mediastinum and on the left, nonspecific. Minimal ground glass opacification of the lungs, nonspecific. Ultrasound guided thoracentesis was subsequently ordered, which revealed no pleural effusion, likely reflecting interim resolution of pleural fluid , previously demonstrated on CT scan. Facilities Engineering Manager followed. Antihypertensive medication regimen was optimized with multiply medication to keep blood pressure under control. Blood pressure stabilized. Antiplatelet therapy and statin were continued for history of CVA. Manager Generation followed. Patient with stage V chronic kidney disease , small pericardial effusion, but declined hemodialysis. Ramírez catheter was placed initially due to urinary retention. Renal ultrasound revealed bladder volume of 500 mL. Patient started on diuretic with close monitoring of volumes and cardiorenal parameters. Hemoglobin and hematocrit were closely monitored with goal to keep hemoglobin above 7. Patient started on IV iron and Epogen. Patient with metabolic acidosis secondary to respiratory insufficiency. Patient started on Bicitra. Bicarbonate stabilized. ID specialist followed. Blood cultures were negative. Patient afebrile, leukocytosis resolved. Antibiotics stopped. ID specialist recommended to keep patient off antibiotics and observe clsoely. Supportive care provided. Pain management was addressed as per pain specialist recommendations. Pain was controlled. Blood sugar was managed as per endocrinology recommendations with long-acting Levemir, oral Januvia , Starlix, and sliding scale of insulin as needed. Teletypesetter recommended to consider right heart catheterization to determine pulmonary artery pressure and volume management , but patient declined. Bicitra and IV Lasix were continued as per manager federal. Cytology after thoracentesis done in July [address] revealed no malignant cells[address] CT of the chest revealed minimal ground glass opacity and nonspecific adenopathy . Teletypesetter recommended to repeat pleural fluid cytology , however no thoracentesis was performed on this admission. Teletypesetter suggested for repeat outpatient CT of the chest and consider EBUS versus mediastinoscopy. Strict aspiration precautions were maintained. Diet provided as per speech therapist recommendations. Patient refused video swallow evaluation. DVT prophylaxis provided. Patient was able to be weaned from nonrebreathing mask eventually to nasal cannula. Patient was recommended to have outpatient pulmonary workup, including full pulmonary function test and polysomnogram. Serology for immunological disease was done and revealed elevated rheumatoid factor of 38.4 and negative CCP. MARILIN screen negative as well. Patient clinically stabilized and was ready for discharge home with home health services. Outpatient follow-up with configuration management advisor recommended. Pulse oximetry was stable on oxygen 2 L via nasal cannula. FINAL DIAGNOSES: Respiratory failure with hypoxemia. Possible history of asthma. CHF with diastolic dysfunction Mediastinal, hilar, and axillary lymphadenopathy ( on prior CT scan) History of transudative pleural effusion, s/p thoracentesis ( July 2018) Hypertensive urgency Moderate pulmonary hypertension Acute kidney injury on chronic kidney disease stage V Anemia of chronic kidney disease History of CVA with left hemiparesis Metabolic acidosis Diabetes mellitus type 2 Thalamic pain syndrome Peripheral neuropathy Elevated RF with negative CCP DISCHARGE MEDICATIONS: See Medication Reconciliation list. DISCHARGE INSTRUCTIONS: Patient was discharged home with home health services. Follow up with primary care provider in one week. I have been assigned to dictate discharge summary for this account. I was not involved in the patient's management. Sandra Aguillon NP Aug 23, 2018 15:29
--- NOTE | 2018-08-25 16:56 | NUR ---
INSURANCE DISCHARGE SUMMARY FAXED TO: [facility] [place] P:[phone] F:[phone] REF#[id number]
--- NOTE | 2018-08-27 13:19 | NUR ---
CASE MANAGEMENT: CM review and clinical information (face sheet/ DC summary/ ER MD Note/ H&P) faxed to JANETH ELDRIDGE @ [phone].
== END 2018-08-22 16:24 | disposition home or self-care (01) | DRG 194 ==
LOC: EDBD 08:05 → EMR 08:23 → EDBEDREQ 08:25 → 2E 09:00 → EDBEDREQ 10:11 → 4E 08-20 14:54
DX: I13.2 Hypertensive heart and chronic kidney disease with heart failure and with stage 5 chronic kidney disease, or end stage renal disease (principal); J96.91 Respiratory failure, unspecified with hypoxia; E11.22 Type 2 diabetes mellitus with diabetic chronic kidney disease; E11.40 Type 2 diabetes mellitus with diabetic neuropathy, unspecified; D69.6 Thrombocytopenia, unspecified; E87.2 Acidosis; N18.5 Chronic kidney disease, stage 5; E11.65 Type 2 diabetes mellitus with hyperglycemia; I16.0 Hypertensive urgency; I50.33 Acute on chronic diastolic (congestive) heart failure; E78.5 Hyperlipidemia, unspecified; G89.0 Central pain syndrome; D64.9 Anemia, unspecified; I25.10 Atherosclerotic heart disease of native coronary artery without angina pectoris; I25.2 Old myocardial infarction; F32.9 Major depressive disorder, single episode, unspecified; I69.954 Hemiplegia and hemiparesis following unspecified cerebrovascular disease affecting left non-dominant side; Q60.2 Renal agenesis, unspecified; R33.9 Retention of urine, unspecified; D72.819 Decreased white blood cell count, unspecified; N25.0 Renal osteodystrophy
CPT/HCPCS: 36415; 36600; 71045; 71250; 76604; 76770; 80048; 80053; 81001; 82043; 82044; 82306; 82550; 82553; 82570; 82803; 82962; 83540; 83550; 83605; 83615; 83880; 83970; 84100; 84300; 84484; 85007; 85025; 85610; 85651; 85730; 86021; 86039; 86140; 86200; 86431; 87040; 89050; 93306; 94640; 94664; 96365; 96368; 96375; 99285; J1815; S5561

== ENCOUNTER 2018-08-25 14:03 | Inpatient (IN) | payer OTHER ==
[~2018-08-25] VITALS: Ht 157.5 cm; Wt 75.7 kg
[~2018-08-25 14:03] MED LIST changes: +ATORVASTATIN CA10 MG ORAL; +BICITRA30 ML PO; +CLONIDINE HCL0.1 MG PO; +HYDRALAZINE HCL50 MG ORAL; +JANUVIA25 MG ORAL; +PANTOPRAZOLE SO40 MG ORAL; +STARLIX60 MG ORAL
[2018-08-25 14:05] VITALS: BP 198/68
--- NOTE | 2018-08-25 14:05 | NUR ---
ED Nurse Note: PT BROUGHT IN BY R34 FROM HOME. AOX4. PT C/O MEDIAL CHEST PAIN, 6/10 X LAST NIGHT. NTG X 2 AND ASA ADMINISTERED BY EMS EN ROUTE. BP: 198/78, HR: 68, RR16 @ 100% O2SAT ON RA. DR. MONTENEGRO AWARE OF PT'S BP.
--- NOTE | 2018-08-25 14:08 | NUR ---
ED Nurse Note: PT REFUSES TO CHANGE INTO HOSPITAL GOWN.
[2018-08-25] MEDS ORDERED: Morphine Sulfate 4mg/ml Inj (IV USE ONLY) IVP ONE (14:30)
--- NOTE | 2018-08-25 14:59 | NUR ---
ED Nurse Note: XRAY AT BEDSIDE.
--- NOTE | 2018-08-25 15:03 | Emergency Room Report ---
History of Present Illness General Chief Complaint: Chest Pain Source: Patient, Medical Record Present Illness HPI patient is poor historian. complains of unk time of chest pain. no SOB. denies any other symptoms. no cough. no fever. does complain of pain at Jaramillo site insertion. doesn't know why she has a jaramillo. Allergies: Coded Allergies: LISINOPRIL (Verified Allergy, Unknown, 07/16/18) LOSARTAN (Verified Allergy, Unknown, 07/16/18) Patient History Past Surgical History: other - htn, cad, ?CHF, dm Reviewed Nursing Documentation: PMH: Agreed Nursing Documentation-PMH Past Medical History: No History, Except For Hx Cardiac Problems: Yes - ACS, NSTMI, CHF Hx Hypertension: Yes Hx Pacemaker: No Hx Asthma: No Hx COPD: No Hx Diabetes: Yes Hx Cancer: No Hx Gastrointestinal Problems: No Hx Dialysis: No History Of Psychiatric Problem: No Hx Neurological Problems: Yes Hx Cerebrovascular Accident: Yes - 01/2018 Hx Seizures: No Hx Paralysis: Yes - Left side hemiparesis Hx Peripheral Neuropathy: Yes Hx Weakness: Yes - left side Physical Exam Vital Signs Date Time Temp Pulse Resp B/P (MAP) Pulse Ox O2 Delivery O2 Flow Rate FiO2 08/25/18 14:02 98.4 69 12 190/64 100 Room Air Sp02 EP Interpretation: reviewed General Appearance: well appearing, no apparent distress ENT: hearing grossly normal, normal voice Neck: full range of motion, supple Respiratory: no respiratory distress, speaking full sentences Cardiovascular #1: normal inspection, normal capillary refill Genitourinary: other - jaramillo cath intact Musculoskeletal: normal inspection Neurologic: alert Procedures Critical Care Time Critical Care Time 35 min Medical Decision Making Diagnostic Impression: Primary Impression: Acute on chronic renal failure Additional Impression: NSTEMI (non-ST elevated myocardial infarction) ER Course patient with sig htn. given an emergent dose of Hydralazine. BP improved. nitropaste placed. also considered, pulm edema, CHF, aortic dissection. Prev. chart reviewed. Patient is very non-compliant. Laboratory Tests Test 08/25/18 14:51 White Blood Count 6.0 K/UL (4.8-10.8) Red Blood Count 4.17 M/UL (4.20-5.40) L Hemoglobin 13.0 G/DL (12.0-16.0) Hematocrit 41.5 % (37.0-47.0) Mean Corpuscular Volume 99 FL (80-99) Mean Corpuscular Hemoglobin 31.1 PG (27.0-31.0) H Mean Corpuscular Hemoglobin Concent 31.3 G/DL (32.0-36.0) L Red Cell Distribution Width 13.4 % (11.6-14.8) Platelet Count 286 K/UL (150-450) Mean Platelet Volume 6.3 FL (6.5-10.1) L Neutrophils (%) (Auto) 83.7 % (45.0-75.0) H Lymphocytes (%) (Auto) 10.6 % (20.0-45.0) L Monocytes (%) (Auto) 3.6 % (1.0-10.0) Eosinophils (%) (Auto) 1.3 % (0.0-3.0) Basophils (%) (Auto) 0.9 % (0.0-2.0) Sodium Level 140 MMOL/L (136-145) Potassium Level 4.9 MMOL/L (3.5-5.1) Chloride Level 109 MMOL/L (98-107) H Carbon Dioxide Level 21 MMOL/L (21-32) Anion Gap 10 mmol/L (5-15) Blood Urea Nitrogen 36 mg/dL (7-18) H Creatinine 2.1 MG/DL (0.55-1.30) H Estimate Glomerular Filtration Rate 29.7 mL/min (>60) Glucose Level 170 MG/DL (74-106) H Calcium Level 8.3 MG/DL (8.5-10.1) L Total Bilirubin 0.4 MG/DL (0.2-1.0) Aspartate Amino Transferase (AST) 23 U/L (15-37) Alanine Aminotransferase (ALT) 19 U/L (12-78) Alkaline Phosphatase 92 U/L (46-116) Troponin I 0.097 ng/mL (0.000-0.056) Total Protein 6.5 G/DL (6.4-8.2) Albumin 2.4 G/DL (3.4-5.0) L Globulin 4.1 g/dL Albumin/Globulin Ratio 0.6 (1.0-2.7) L EKG Diagnostic Results Rate: normal Rhythm: NSR ST Segments: no acute changes Chest X-Ray Diagnostic Results Chest X-Ray Diagnostic Results : Chest X-Ray Ordered: Yes # of Views/Limited/Complete: 1 View Indication: Chest Pain EP Interpretation: No Impression: No acute disease Last Vital Signs Date Time Temp Pulse Resp B/P (MAP) Pulse Ox O2 Delivery O2 Flow Rate FiO2 08/25/18 14:05 78 16 Room Air 08/25/18 14:05 98.3 198/68 100 Disposition: ADMITTED INPATIENT Admit Decision Time: 16:49 Condition: Serious Physician Consult: Dr. Godinez will admit patient LANSANTODonnie Aug 25, 2018 15:03
[2018-08-25 15:07] LABS: BASOPHILS % (AUTO) 0.9 % (0.0-2.0); EOSINOPHILS % (AUTO) 1.3 % (0.0-3.0); HEMATOCRIT 41.5 % (37.0-47.0); LYMPHOCYTES % (AUTO) 10.6 % (20.0-45.0); MEAN CORPUSCULAR VOLUME 99 FL (80-99); MONOCYTES % (AUTO) 3.6 % (1.0-10.0); NEUTROPHILS % (AUTO) 83.7 % (45.0-75.0); PLATELET COUNT 286 K/UL (150-450); RED BLOOD COUNT 4.17 M/UL (4.20-5.40); RED CELL DISTRIBUTION WIDTH 13.4 % (11.6-14.8)
[2018-08-25 15:17] LABS: ANION GAP 10 mmol/L (5-15); BLOOD UREA NITROGEN 36 mg/dL (7-18); CALCIUM 8.3 MG/DL (8.5-10.1); CARBON DIOXIDE 21 MMOL/L (21-32); CHLORIDE 109 MMOL/L (98-107); CREATININE 2.1 MG/DL (0.55-1.30); POTASSIUM 4.9 MMOL/L (3.5-5.1); SODIUM 140 MMOL/L (136-145)
[2018-08-25 15:21] LABS: ALANINE AMINOTRANSFERASE 19 U/L (12-78); ALBUMIN 2.4 G/DL (3.4-5.0); ALBUMIN/GLOBULIN RATIO 0.6 (1.0-2.7); ALKALINE PHOSPHATASE 92 U/L (46-116); ASPARTATE AMINO TRANSFERASE 23 U/L (15-37); BILIRUBIN,TOTAL 0.4 MG/DL (0.2-1.0)
--- NOTE | 2018-08-25 15:23 | Diagnostic Imaging Report ---
Indication: Dyspnea Comparison: August 09, 2018 A single view chest radiograph was obtained. Findings: Previous pulmonary edema is no longer seen. Currently no infiltrate or interstitial edema identified. Heart size is borderline enlarged. The bones are unremarkable. IMPRESSION: No acute disease
[2018-08-25 16:23] VITALS: BP 167/72
--- NOTE | 2018-08-25 17:00 | NUR ---
ED Nurse Note: PT'S BP 181/72. DR. MONTENEGRO AWARE. NO FURTHER ORDERS AT THIS TIME.
[2018-08-25] MEDS ORDERED: Aspirin Baby 81mg ORAL ONE (17:15)
[2018-08-25] MEDS ORDERED: Nitroglycerin 2% oint pkt TOPIC ONE (17:15)
--- NOTE | 2018-08-25 17:16 | NUR ---
ED Nurse Note: PT PRESCRIBED ASA AND NTG. PT REFUSES TO TAKE MEDS.
[2018-08-25] MEDS: Acetaminophen 650 MG SUPP RECTAL PRN ×2 (17:17→17:18)
[2018-08-25 17:53] VITALS: BP 182/72
--- NOTE | 2018-08-25 17:54 | NUR ---
ED Nurse Note: PT REFUSES TO KEEP BP CUFF ON ANY LONGER. EXPLANATION FOR IMPORTANCE OF BP CUFF COMPLIANCE EXPLAINED AT LENGTH WITH PT. PT VERBALIZES UNDERSTANDING BUT STILL REFUSES TO COMPLY. BP CUFF WILL REMAIN OFF PER PT'S REQUEST.
--- NOTE | 2018-08-25 19:27 | NUR ---
ED Nurse Note: REPORT GIVEN TO SANTOS VARMA RN.
--- NOTE | 2018-08-25 19:30 | NUR ---
ED Nurse Note: Received patient from JENNIFER Sumner. Patient AO4. Refuses blood pressure. Explained risk and benefits x3; patient still refused. Patient yelling and cursing; combative. Patient threw side table. Called security. Patient states, "You nurses are worthless. I dont want my blood pressure taken." Will continue to monitor.
--- NOTE | 2018-08-25 19:50 | NUR ---
TRANSFER TO FLOOR: Patient transferred to Telemetry 216-2 as ordered, per MD Gretchen . Report given to JENNIFER Mills. Belongings list completed with receiving RN. Pt AO4. NAD.
[2018-08-25 20:00] VITALS: BP 185/79
--- NOTE | 2018-08-25 20:00 | NUR ---
NURSE NOTES: Pt transferred from ER via gurney and assisted to [facility] without incidence. teletypesetter monitor applied. Belongings list checked with transferring RN and patient at bedside. Pt is awake, alert, and oriented x4. Pt is on room air and breathing is even and unlabored. No acute distress noted. IV site is asymptomatic, patent, and intact. Jaramillo noted to be patent and draining to gravity, no leaking. No vaginal discharge or odor noted. Per patient, jaramillo was inserted upon last stay at [facility] [place] for urinary retention and patient was d/c'ed with jaramillo per MD orders. Will contact admitting MD regarding continuing Jaramillo upon this admission. Bed placed in lowers position with brake engaged, side rails up x3, and bed alarm on. Call light and side table placed within reach. Will contact admitting MD Geiger for admission orders.
[2018-08-25] MEDS ORDERED: Albuterol/Ipratropium 3ml neb HHN PRN (20:28)
[2018-08-25] MEDS ORDERED: Miralax 17gm pkt ORAL PRN (20:29)
[2018-08-25] MEDS ORDERED: Nitroglycerin Subl 0.4mg tab SL PRN (20:29)
[2018-08-25] MEDS ORDERED: Morphine Sulfate 4mg/ml Inj (IV USE ONLY) IVP PRN (20:32)
[2018-08-25] MEDS ORDERED: dilTIAZem HCl 25mg/5ml Inj IV PRN (20:33)
[2018-08-25] MEDS ORDERED: Ketorolac 30mg Inj IV PRN (20:35)
[2018-08-25] MEDS: TraZODone 50mg tab ORAL SCH (22:08)
[2018-08-25] MEDS: HydrALAZINE 50mg tab ORAL SCH (22:10)
[2018-08-25] MEDS: Carvedilol 25mg Tab ORAL SCH (22:11)
[2018-08-25] MEDS: Heparin 5000 units/ml inj SUBQ SCH (22:15)
[2018-08-25] MEDS: NovoLOG Insulin Flexpen SUBQ SCH (22:16)
--- NOTE | 2018-08-25 23:00 | NUR ---
NURSE NOTES: Per patient, she takes percocet at home for pain management and is requesting to continue medication in hospital. MD Godinez, covering for MD Geiger, notified. Per jim Brown to order Percocet 10/325 Q4HR PRN for severe pain 7-10. Also, per nydia ARELLANO Morphine PRN order.
--- NOTE | 2018-08-25 23:04 | NUR ---
NURSE NOTES: Pt troponin elevated to 0.097 and second result trending down to 0.081. Pt denies chest pain since admission to floor. MD Godinez notified. No new orders at this time.
[2018-08-26] VITALS (7 sets, daily range): BP systolic 121–178; BP diastolic 54–79
[2018-08-26] MEDS: HydrALAZINE 50mg tab ORAL SCH ×3 (05:40→21:43)
[2018-08-26] MEDS: Heparin 5000 units/ml inj SUBQ SCH ×3 (05:43→21:46)
[2018-08-26] MEDS: NovoLOG Insulin Flexpen SUBQ SCH ×4 (06:30→21:47)
--- NOTE | 2018-08-26 07:25 | NUR ---
NURSE NOTES: I received the patient awake and resting in bed. Patient alert and oriented x4. Patient does not display any signs of distress or SOB. Bed in the lowest position and call light within reach. I will continue to monitor the patient and implement care.
[2018-08-26 07:41] LABS: BASOPHILS % (AUTO) 0.3 % (0.0-2.0); EOSINOPHILS % (AUTO) 3.6 % (0.0-3.0); HEMATOCRIT 35.8 % (37.0-47.0); HEMOGLOBIN 11.6 G/DL (12.0-16.0); LYMPHOCYTES % (AUTO) 26.2 % (20.0-45.0); MEAN CORPUSCULAR VOLUME 98 FL (80-99); MONOCYTES % (AUTO) 5.5 % (1.0-10.0); NEUTROPHILS % (AUTO) 64.4 % (45.0-75.0); PLATELET COUNT 260 K/UL (150-450); RED BLOOD COUNT 3.65 M/UL (4.20-5.40); RED CELL DISTRIBUTION WIDTH 13.6 % (11.6-14.8); WHITE BLOOD COUNT 5.3 K/UL (4.8-10.8)
[2018-08-26] MEDS: sitaGLIPtin 25mg tab ORAL SCH (07:47)
--- NOTE | 2018-08-26 07:54 | NUR ---
HAND-OFF: Report given to Elvira RODRIGUEZ. Pt is resting in bed in stable condition. No acute distress noted. Endorsed plan of care.
[2018-08-26 08:15] LABS: INR 1.1 (0.9-1.1)
[2018-08-26 08:34] LABS: CHOLESTEROL 144 MG/DL (< 200); HDL CHOLESTEROL 30 MG/DL (40-60); TRIGLYCERIDES 178 MG/DL (30-150)
[2018-08-26] MEDS: Aspirin Baby 81mg ORAL SCH (08:57)
[2018-08-26] MEDS: Carvedilol 25mg Tab ORAL SCH ×2 (08:58→21:43)
--- NOTE | 2018-08-26 09:13 | NUR ---
CASE MANAGEMENT: INITIAL REVIEW 08/25/2018 53 YO F BIBA FROM HOME CC: CHEST PAIN. PMHx: HTN. CAD. CHF. DM. SI:NSTEMI T: 98.4 HR 69 RR 12 B/P 190/64 SATS 100% ON RA CL 109 BUN 36 CR 2.1 GLUCOSE 170 CA 8.3 TROPONIN 0.097 AND 0.081 IS: MORPHINE IV X1 HYDRALAZINE IV X1 ACETAMINOPHEN RECTAL PRN NITRO TOPIC X1 ASA PO X1 PATIENT ADMITTED TO TELE 08/25/2018 @ 1733 DCP: PATIENT TO BE DISCHARGED TO HOME ONCE MEDICALLY CLEARED. PLAN OF CARE: VENOUS DUPLEX 2D ECHO 08/26/2018 SI:NSTEMI T: 98.4 HR 67 RR 18 B/P 178/78 SATS 98% ON RA PT 11.9 IS: HYDRALAZINE PO Q8H COREG PO Q12H JANUVIA PO QAC LIPITOR PO QHS REMERON PO QHS TRAZADONE PO QHS NORVASC PO QD PLAVIX PO QD PROTONIX PO QD ASA PO QD INSULIN ASPART SUBQ AC/HS GABAPENTIN PO Q12H TELE STATUS DCP: PATIENT TO BE DISCHARGED TO HOME ONCE MEDICALLY CLEARED. PLAN OF CARE: VENOUS DUPLEX 2D ECHO Addendum: 08/26/18 at 1435 by Giselle Blue CM INTERQUAL MET FOR INTERMEDIATE
--- NOTE | 2018-08-26 13:34 | Cardiology Report ---
APPROVED REPORT EKG Measurement Heart [id number] Normal sinus rhythm Voltage criteria for left ventricular hypertrophy Cannot rule out Septal infarct, age undetermined Abnormal ECG
--- NOTE | 2018-08-26 18:28 | General Progress Note ---
Assessment/Plan Problem List: (1) NSTEMI (non-ST elevated myocardial infarction) ICD Codes: I21.4 - Non-ST elevation (NSTEMI) myocardial infarction SNOMED: 693202239 (2) Hypertension ICD Codes: I10 - Essential (primary) hypertension SNOMED: 25115713 (3) Cardiomegaly ICD Codes: I51.7 - Cardiomegaly SNOMED: 0480591 (4) Solitary kidney ICD Codes: Q60.0 - Renal agenesis, unilateral SNOMED: 112196249 (5) Moderate pulmonary arterial systolic hypertension ICD Codes: I27.21 - Secondary pulmonary arterial hypertension SNOMED: 70678680 (6) Asthma ICD Codes: J45.909 - Unspecified asthma, uncomplicated SNOMED: 886736370 (7) Diabetes mellitus ICD Codes: E11.9 - Type 2 diabetes mellitus without complications SNOMED: 94309057 Status: progressing Assessment/Plan afebrile cp r/o acs check trop niddm htn Subjective Allergies: Coded Allergies: LISINOPRIL (Verified Allergy, Unknown, 07/16/18) LOSARTAN (Verified Allergy, Unknown, 07/16/18) Subjective chronic pain cp Objective Last 24 Hour Vital Signs Date Time Temp Pulse Resp B/P (MAP) Pulse Ox O2 Delivery O2 Flow Rate FiO2 08/26/18 16:26 97.9 08/26/18 15:49 64 08/26/18 15:44 97.9 62 18 133/62 (85) 08/26/18 14:40 65 133/59 (83) 08/26/18 14:37 150/63 08/26/18 12:02 67 08/26/18 12:00 97.4 65 18 150/63 (92) 08/26/18 09:00 Room Air 08/26/18 08:58 66 134/54 08/26/18 08:57 66 134/54 08/26/18 08:49 66 19 134/54 (80) 08/26/18 07:47 65 08/26/18 05:40 178/78 08/26/18 04:00 67 08/26/18 04:00 98.4 68 18 178/78 (111) 98 08/26/18 00:00 69 08/26/18 00:00 98.1 72 18 121/79 (93) 94 08/25/18 22:48 Room Air 08/25/18 22:11 74 185/79 08/25/18 22:10 185/79 08/25/18 20:00 73 08/25/18 20:00 98.0 72 18 185/79 (114) 100 08/25/18 19:50 98.5 71 14 145/63 100 Room Air Intake and Output 08/25/18 08/26/18 18:59 06:59 Output Total 920 ml Balance -920 ml Output Urine Total 920 ml # Voids 1 Laboratory Tests 08/25/18 21:25: Troponin I 0.081H 08/26/18 05:23: White Blood Count 5.3, Red Blood Count 3.65L, Hemoglobin 11.6L, Hematocrit 35.8L , Mean Corpuscular Volume 98, Mean Corpuscular Hemoglobin 31.9H, Mean Corpuscular Hemoglobin Concent 32.6, Red Cell Distribution Width 13.6, Platelet Count 260, Mean Platelet Volume 6.6, Neutrophils (%) (Auto) 64.4, Lymphocytes (% ) (Auto) 26.2, Monocytes (%) (Auto) 5.5, Eosinophils (%) (Auto) 3.6H, Basophils (%) (Auto) 0.3, Prothrombin Time 11.9H, Prothromb Time International Ratio 1.1, Activated Partial Thromboplast Time 30, C-Reactive Protein, Quantitative 0.6, Triglycerides Level 178H, Cholesterol Level 144, LDL Cholesterol 84, HDL Cholesterol 30L, Cholesterol/HDL Ratio 4.8H, Thyroid Stimulating Hormone (TSH) 1.493 Height (Feet): 5 Height (Inches): 2.00 Weight (Pounds): 167 Respiratory/Chest: lungs clear Abdomen: soft Eligio Neumann MD Aug 26, 2018 18:28
--- NOTE | 2018-08-26 19:15 | NUR ---
HAND-OFF: Report given to JENNIFER Mills.
--- NOTE | 2018-08-26 19:30 | NUR ---
NURSE NOTES: Report received from Elvira Valdez RN. Pt is resting in bed in stable condition. Pt is awake, alert, and oriented x4. Pt is on room air and breathing is even and unlabored. No acute distress noted. IV site is asymptomatic, patent, and intact. Ramírez noted to be patent and draining to gravity. Clear, yellow urine noted in drainage bag. Bed is in lowest position with brake engaged, side rails up x3, and bed alarm on. Call light and side table placed within reach. Will continue to monitor.
--- NOTE | 2018-08-26 21:20 | NUR ---
NURSE NOTES: Pt refusing MRSA, VRE, CRE swabs at this time.
[2018-08-26] MEDS: TraZODone 50mg tab ORAL SCH (21:42)
[2018-08-27] VITALS: BP 139/59
[2018-08-27 04:00] VITALS: BP 139/62
[2018-08-27] MEDS: sitaGLIPtin 25mg tab ORAL SCH (05:33)
[2018-08-27] MEDS: HydrALAZINE 50mg tab ORAL SCH ×3 (05:33→21:29)
[2018-08-27] MEDS: NovoLOG Insulin Flexpen SUBQ SCH ×4 (05:34→21:26)
[2018-08-27] MEDS: Heparin 5000 units/ml inj SUBQ SCH ×3 (05:35→21:27)
--- NOTE | 2018-08-27 07:22 | NUR ---
HAND-OFF: Report given to Elvira RODRIGUEZ. Pt is resting in bed in stable condition. No acute distress noted. Endorsed plan of care.
--- NOTE | 2018-08-27 07:25 | NUR ---
NURSE NOTES: I received the patient awake, sitting up in bed and eating breakfast. Patient alert and oriented x4. Patient does not display any signs of distress or SOB. Bed in the lowest position and call light within reach. Patient complained that her pain is not being controlled. I educated the patient about the pain medications that have been prescribed for her. I let her know that I had talked to the doctor about her pain and that he was not going to prescribe anything else for her pain. She asked if she could have a pain management consult and I said I would talk with the doctor. The patient is resting in bed and does not display any signs of distress. I will continue to monitor the patient and implement care.
--- NOTE | 2018-08-27 09:18 | NUR ---
CASE MANAGEMENT: REVIEW 08/27/2018 SI:NSTEMI T: 98.2 HR 68 RR 20 B/P 139/79 SATS 97% ON RA ALP 44 IS: HYDRALAZINE PO Q8H COREG PO Q12H JANUVIA PO QAC LIPITOR PO QHS REMERON PO QHS TRAZODONE PO QHS NORVASC PO QD PLAVIX PO QD PROTONIX PO QD ASA PO QD INSULIN ASPART SUBQ AC/HS GABAPENTIN PO Q12H TELE STATUS DCP: PATIENT TO BE DISCHARGED TO HOME ONCE MEDICALLY CLEARED. PLAN OF CARE: VENOUS DUPLEX 2D ECHO>> EF 55%
[2018-08-27 09:38] VITALS: BP 134/52
[2018-08-27] MEDS: Aspirin Baby 81mg ORAL SCH (09:39)
[2018-08-27] MEDS: Carvedilol 25mg Tab ORAL SCH ×2 (09:40→21:29)
[2018-08-27 12:00] VITALS: BP 157/60
[2018-08-27 16:00] VITALS: BP 134/54
--- NOTE | 2018-08-27 19:30 | NUR ---
HAND-OFF: Report given to JENNIFER Vargas.
--- NOTE | 2018-08-27 19:31 | NUR ---
NURSE NOTES: Received report from JENNIFER Felix. Pt is resting in bed. In no acute distress. Bed in lowest position, call light within reach. Will continue plan of care.
[2018-08-27 20:00] VITALS: BP 151/61
--- NOTE | 2018-08-27 20:32 | General Progress Note ---
Assessment/Plan Problem List: (1) NSTEMI (non-ST elevated myocardial infarction) ICD Codes: I21.4 - Non-ST elevation (NSTEMI) myocardial infarction SNOMED: 417493377 (2) Hypertension ICD Codes: I10 - Essential (primary) hypertension SNOMED: 91444661 (3) Cardiomegaly ICD Codes: I51.7 - Cardiomegaly SNOMED: 6501004 (4) Solitary kidney ICD Codes: Q60.0 - Renal agenesis, unilateral SNOMED: 107188940 (5) Moderate pulmonary arterial systolic hypertension ICD Codes: I27.21 - Secondary pulmonary arterial hypertension SNOMED: 11635485 (6) Asthma ICD Codes: J45.909 - Unspecified asthma, uncomplicated SNOMED: 866447686 (7) Diabetes mellitus ICD Codes: E11.9 - Type 2 diabetes mellitus without complications SNOMED: 28931454 Status: progressing Assessment/Plan no acute events cp r/o acs niddm htn Subjective ROS Limited/Unobtainable: Yes Allergies: Coded Allergies: LISINOPRIL (Verified Allergy, Unknown, 07/16/18) LOSARTAN (Verified Allergy, Unknown, 07/16/18) Subjective chronic pain cp Objective Last 24 Hour Vital Signs Date Time Temp Pulse Resp B/P (MAP) Pulse Ox O2 Delivery O2 Flow Rate FiO2 08/27/18 16:00 97.8 66 18 134/54 (80) 95 08/27/18 15:41 67 08/27/18 14:35 97.3 08/27/18 14:05 157/60 08/27/18 12:00 97.3 70 18 157/60 (92) 98 08/27/18 11:48 67 08/27/18 09:40 66 134/52 08/27/18 09:40 66 134/52 08/27/18 09:38 66 18 134/52 (79) 96 08/27/18 09:00 Room Air 08/27/18 07:50 63 16 Room Air 08/27/18 07:48 61 08/27/18 05:33 139/62 08/27/18 04:00 97.5 61 20 139/62 (87) 98 08/27/18 04:00 57 08/27/18 00:00 63 08/27/18 00:00 98.5 66 20 139/59 (85) 96 08/26/18 21:43 128/63 08/26/18 21:43 66 128/68 08/26/18 21:00 Room Air Intake and Output 08/26/18 08/27/18 18:59 06:59 Intake Total 240 ml 240 ml Balance 240 ml 240 ml Intake Oral 240 ml 240 ml # Bowel Movements 2 1 Laboratory Tests 08/26/18 21:15: Troponin I 0.047 08/27/18 19:53: Troponin I [Pending] Height (Feet): 5 Height (Inches): 2.00 Weight (Pounds): 167 EENT: PERRL/EOMI Cardiovascular: normal rate Respiratory/Chest: lungs clear Abdomen: soft Eligio Neumann MD Aug 27, 2018 20:32
[2018-08-27] MEDS: TraZODone 50mg tab ORAL SCH (21:29)
[2018-08-28] VITALS (7 sets, daily range): BP systolic 125–182; BP diastolic 62–90
[2018-08-28] MEDS: sitaGLIPtin 25mg tab ORAL SCH (06:15)
[2018-08-28] MEDS: HydrALAZINE 50mg tab ORAL SCH ×3 (06:16→21:12)
[2018-08-28] MEDS: NovoLOG Insulin Flexpen SUBQ SCH ×4 (06:18→21:10)
[2018-08-28] MEDS: Heparin 5000 units/ml inj SUBQ SCH ×3 (06:19→21:10)
--- NOTE | 2018-08-28 07:15 | NUR ---
HAND-OFF: Report given to JENNIFER Felix.
[2018-08-28] MEDS: Carvedilol 25mg Tab ORAL SCH ×2 (08:03→21:11)
[2018-08-28] MEDS: Aspirin Baby 81mg ORAL SCH (08:03)
--- NOTE | 2018-08-28 13:59 | Cardiology Progress Note ---
Assessment/Plan Assessment/Plan The patient is seen and examined, full consult note will be dictated shortly. Objective Last 24 Hour Vital Signs Date Time Temp Pulse Resp B/P (MAP) Pulse Ox O2 Delivery O2 Flow Rate FiO2 08/28/18 12:00 97.3 65 20 156/65 (95) 100 08/28/18 09:22 149/62 (91) 08/28/18 09:00 Room Air 08/28/18 08:33 97.7 08/28/18 08:17 71 17 Room Air 21 08/28/18 08:03 71 182/77 08/28/18 08:02 71 182/77 08/28/18 07:45 97.7 71 20 182/77 (112) 100 08/28/18 06:16 140/78 08/28/18 04:00 98.0 80 20 143/90 (107) 96 08/28/18 00:00 98.5 76 20 125/65 (85) 94 08/27/18 21:29 141/67 08/27/18 21:29 72 141/67 08/27/18 21:00 Room Air 08/27/18 20:14 68 18 Room Air 21 08/27/18 20:00 98.3 68 18 151/61 (91) 95 08/27/18 16:00 97.8 66 18 134/54 (80) 95 08/27/18 15:41 67 08/27/18 14:05 157/60 Intake and Output 08/27/18 08/28/18 19:00 07:00 Intake Total 590 ml 360 ml Output Total 650 ml Balance -60 ml 360 ml Intake Oral 590 ml 360 ml Output Urine Total 650 ml # Bowel Movements 1 Laboratory Tests Test 08/27/18 19:53 Troponin I 0.043 ng/mL (0.000-0.056) Kwesi Zee MD Aug 28, 2018 13:59
--- NOTE | 2018-08-28 16:48 | NUR ---
*-* INSURANCE *-* CLINICALS HAVE BEEN FAXED TO: KEELY (PROF COMP) S/W TIMOTHY P- [phone] F- [phone] (FX THE REVIEW ONLY) & SHIV/LAISHA S/W NAOMI @ [phone] SHIV WILL TRACK THIS ADMISSION P- [phone] F- [phone] ( FX REVIEW/CLINICAL)
--- NOTE | 2018-08-28 17:12 | NUR ---
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
--- NOTE | 2018-08-28 19:20 | NUR ---
NURSE NOTES: Received report from JENNIFER Sheehan. Pt is awake and resting in bed. In no acute distress. Bed in lowest position, call light within reach. Will continue plan of care.
[2018-08-28] MEDS: TraZODone 50mg tab ORAL SCH (21:10)
--- NOTE | 2018-08-28 21:39 | General Progress Note ---
Assessment/Plan Problem List: (1) NSTEMI (non-ST elevated myocardial infarction) ICD Codes: I21.4 - Non-ST elevation (NSTEMI) myocardial infarction SNOMED: 088892262 (2) Hypertension ICD Codes: I10 - Essential (primary) hypertension SNOMED: 95271433 (3) Cardiomegaly ICD Codes: I51.7 - Cardiomegaly SNOMED: 6450203 (4) Solitary kidney ICD Codes: Q60.0 - Renal agenesis, unilateral SNOMED: 376674900 (5) Moderate pulmonary arterial systolic hypertension ICD Codes: I27.21 - Secondary pulmonary arterial hypertension SNOMED: 42482333 (6) Asthma ICD Codes: J45.909 - Unspecified asthma, uncomplicated SNOMED: 109660596 (7) Diabetes mellitus ICD Codes: E11.9 - Type 2 diabetes mellitus without complications SNOMED: 07530483 Status: progressing Assessment/Plan no acute events cp r/o acs niddm htn asthma sugar improving afebrile Subjective ROS Limited/Unobtainable: Yes Allergies: Coded Allergies: LISINOPRIL (Verified Allergy, Unknown, 07/16/18) LOSARTAN (Verified Allergy, Unknown, 07/16/18) Subjective chronic pain cp Objective Last 24 Hour Vital Signs Date Time Temp Pulse Resp B/P (MAP) Pulse Ox O2 Delivery O2 Flow Rate FiO2 08/28/18 21:12 144/71 08/28/18 21:11 70 144/71 08/28/18 17:11 97.9 08/28/18 15:58 97.9 66 20 146/63 (90) 96 08/28/18 15:16 156/65 08/28/18 12:00 97.3 65 20 156/65 (95) 100 08/28/18 09:22 149/62 (91) 08/28/18 09:00 Room Air 08/28/18 08:17 71 17 Room Air 21 08/28/18 08:03 71 182/77 08/28/18 08:02 71 182/77 08/28/18 07:45 97.7 71 20 182/77 (112) 100 08/28/18 06:16 140/78 08/28/18 04:00 98.0 80 20 143/90 (107) 96 08/28/18 00:00 98.5 76 20 125/65 (85) 94 Intake and Output 08/27/18 08/28/18 18:59 06:59 Intake Total 590 ml 360 ml Output Total 650 ml Balance -60 ml 360 ml Intake Oral 590 ml 360 ml Output Urine Total 650 ml # Bowel Movements 1 Height (Feet): 5 Height (Inches): 2.00 Weight (Pounds): 167 EENT: PERRL/EOMI Neck: supple Cardiovascular: normal rate Respiratory/Chest: lungs clear Eligio Neumann MD Aug 28, 2018 21:39
--- NOTE | 2018-08-28 23:20 | NUR ---
TRANSFER TO FLOOR: Patient transferred to [facility] med/surg unit, per MD order. Report given to JENNIFER Valdes. Belongings and medications given to JENNIFER.
[2018-08-28] MEDS ORDERED: Nitroglycerin Subl 0.4mg tab SL PRN (23:30)
--- NOTE | 2018-08-28 23:49 | NUR ---
NURSE NOTES: Received report from Sam RODRIGUEZ. patient arrived to floor @ 2320. No pain noted. Current BP 175/75. pulse 74. Dr. Zee notified. Awaiting call back. Belongings list signed. Oriented to room. Side rails upx2. Bed low, call light within reach.
[2018-08-29] VITALS (7 sets, daily range): BP systolic 100–177; BP diastolic 52–80
--- NOTE | 2018-08-29 | Consultation ---
DATE OF CONSULTATION: 08/28/2018 CARDIOLOGY CONSULTATION CONSULTING PHYSICIAN: Kwesi Zee M.D. REFERRING PHYSICIAN: Eligio Neumann M.D. REASON FOR CONSULTATION: Management of chest pain. HISTORY OF PRESENT ILLNESS: The patient is a very unfortunate 53-year-old lady, who is known to me with recent hospitalization to this facility, who was recently discharged and presents again with complaint of chest pain. The patient has a history of cerebrovascular accident, left hemiparesis, peripheral neuropathy, diabetes mellitus, hypertension, chronic kidney disease stage 5, who refused hemodialysis at previous admission as well as history of elevated troponin I level due to npf-HK-atozwjczo myocardial infarction versus troponin leak due to chronic kidney disease as well as diastolic heart failure. At the time of arrival to the hospital, initial blood pressure was 190/64 mmHg and heart rate was 69. A 12-lead electrocardiogram in the emergency department showed sinus rhythm, heart rate of 69 with LVH and possible septal infarct of age indeterminate. There was no evidence of acute ischemic changes. Cardiovascular history is significant for history ____. Her previous cardiac workup was significant for 2D echocardiography which was obtained on July 17, 2018 revealing normal LV systolic and diastolic function with LVEF of approximately 55%. She also had right-sided thoracentesis for bilateral pleural effusion which was believed to be due to end-stage renal disease. She also small pericardial effusion and moderate pulmonary hypertension, both of which attributed to her underlying chronic kidney disease. PAST MEDICAL HISTORY: 1. Chronic kidney disease, stage 5. 2. Diabetes mellitus. 3. Hypertension. 4. Elevated troponin I level, non-STEMI versus troponin leak due to CKD. 5. History of diastolic heart failure. 6. History of CVA with left hemiparesis. 7. History of peripheral neuropathy. 8. History of moderate pulmonary hypertension. 9. History of pleural and pericardial effusion, status post right thoracentesis. PAST SURGICAL HISTORY: Status post right thoracentesis. ALLERGIES: KITTY inhibitors and ARBs. FAMILY HISTORY: No premature coronary artery disease in first-degree relatives. REVIEW OF SYSTEMS: A 12-system review done essentially negative except what was mentioned in history of present illness. LIST OF MEDICATIONS: Include amlodipine 10 mg p.o. daily, Lipitor 10 mg p.o. nightly, acetaminophen 650 mg p.o. q.6 h. p.r.n. pain, carvedilol 37.5 mg q.12 h., clonidine 0.1 mg q.8 h., Plavix 75 mg p.o. daily, gabapentin 300 mg q.12 h., hydralazine 50 mg q.8 h., mirtazapine 7.5 mg nightly, Starlix 120 mg before meals, pantoprazole 40 mg p.o. daily, Januvia 25 mg before meals, sodium citrate citric acid solution 30 mL p.o. b.i.d., and Desyrel 50 mg nightly. PHYSICAL EXAMINATION: VITAL SIGNS: Blood pressure was 190/64, respirations 12, pulse 69, temperature 98.4 degrees Fahrenheit, and O2 saturation 100% on room air. GENERAL: The patient is a very unfortunate 53-year-old lady, in no apparent respiratory distress. Alert and oriented x4. HEENT: Atraumatic and normocephalic. ENT, pupils are equal, round, and reactive to light and accommodation. Extraocular muscles intact. NECK: JVP is less than 5 cm. No carotid bruit. Carotid upstrokes 2+ bilaterally. CARDIOVASCULAR SYSTEM: Normal S1, S2. Regular rate and rhythm. No murmurs, gallops, or rubs. PMI is at fourth intercostal space at midclavicular line. LUNGS: Clear to auscultation bilaterally. ABDOMEN: Soft, nontender, and nondistended. No hepatosplenomegaly. Positive bowel sounds. EXTREMITIES: No evidence of edema, clubbing, or cyanosis. LABORATORY FINDINGS: WBC 6.0, hemoglobin 13.0, hematocrit of 41.5, platelet count 286,000. Chemistry shows sodium 140, potassium 4.9, chloride 109, bicarbonate 21, BUN 36, creatinine 2.1, glucose 170, calcium is 8.3. INR is 1.1. Chest x-ray shows no acute cardiopulmonary disease. ASSESSMENT AND PLAN: The patient is a very unfortunate 53-year-old lady who was seen in cardiology consultation. 1. Accelerated hypertension. I will continue with amlodipine, hydralazine, carvedilol, and clonidine as needed. Goal of blood pressure in this patient 130/80 mmHg. This is most likely secondary to renal parenchymal disease. 2. History of diastolic congestive heart failure, however, the chest x-ray showed no evidence of congestive heart failure. We will continue with managing the patient's hemodynamics. 3. History of elevated troponin I level, rls-PN-lsskvgjpi myocardial infarction versus CKD. 4. History of diabetes mellitus. 5. History of CVA with left hemiparesis. 6. Review of 2D echocardiography on July 17 had shown normal LV systolic and diastolic function. 7. Moderate pulmonary hypertension was evident. I would like to thank, Dr. Neumann, for allowing me to participate in the care of this patient. Kwesi Zee M.D. DR: Param JOB#: [id number] CC:
[2018-08-29] MEDS ORDERED: Albuterol/Ipratropium 3ml neb HHN PRN (00:30)
[2018-08-29] MEDS: Minoxidil 2.5mg tab ORAL SCH ×3 (00:45→21:17)
[2018-08-29] MEDS ORDERED: Ketorolac 30mg Inj IV PRN (02:45)
[2018-08-29] MEDS: sitaGLIPtin 25mg tab ORAL SCH (06:51)
[2018-08-29] MEDS: HydrALAZINE 50mg tab ORAL SCH ×3 (06:51→21:58)
[2018-08-29] MEDS: Heparin 5000 units/ml inj SUBQ SCH ×3 (06:53→21:22)
[2018-08-29] MEDS: NovoLOG Insulin Flexpen SUBQ SCH ×4 (06:54→21:25)
--- NOTE | 2018-08-29 07:30 | NUR ---
NURSE NOTES: Patient is in bed awake and able to verbalize needs. Denies pain at this time. Stable with no s/s acute distress. Patient informed of scheduled venous duplex, verbalized understanding. Patient comfortable in bed in locked position, all safety measures provided, call light within reach. Will continue to monitor.
--- NOTE | 2018-08-29 07:47 | NUR ---
HAND-OFF: Report given to JENNIFER Fox. Patient stable.
[2018-08-29] MEDS: Aspirin Baby 81mg ORAL SCH (09:10)
[2018-08-29] MEDS: Carvedilol 25mg Tab ORAL SCH ×2 (09:11→21:16)
--- NOTE | 2018-08-29 11:00 | NUR ---
NURSE NOTES: Venous duplex done bedside, tolerated well. Results show no evidence of DVT.
--- NOTE | 2018-08-29 13:01 | General Progress Note ---
Assessment/Plan Problem List: (1) NSTEMI (non-ST elevated myocardial infarction) ICD Codes: I21.4 - Non-ST elevation (NSTEMI) myocardial infarction SNOMED: 222656489 (2) Hypertension ICD Codes: I10 - Essential (primary) hypertension SNOMED: 23059494 (3) Asthma ICD Codes: J45.909 - Unspecified asthma, uncomplicated SNOMED: 272255305 (4) Diabetes mellitus ICD Codes: E11.9 - Type 2 diabetes mellitus without complications SNOMED: 17591116 Status: stable, progressing Assessment/Plan o2 pulm tx cardio f/u cbc bmp am dc plan w hh Subjective Constitutional: Reports: weakness Allergies: Coded Allergies: LISINOPRIL (Verified Allergy, Unknown, 07/16/18) LOSARTAN (Verified Allergy, Unknown, 07/16/18) All Systems: reviewed and negative except above Subjective calm in bed eating Objective Last 24 Hour Vital Signs Date Time Temp Pulse Resp B/P (MAP) Pulse Ox O2 Delivery O2 Flow Rate FiO2 08/29/18 12:13 142/80 08/29/18 11:50 98.3 68 18 142/80 (100) 98 08/29/18 09:12 177/73 08/29/18 09:11 69 177/73 08/29/18 09:11 69 177/73 08/29/18 09:00 Room Air 08/29/18 08:10 71 16 Room Air 21 08/29/18 08:00 69 20 177/73 (107) 97 08/29/18 06:51 171/68 08/29/18 06:51 171/68 08/29/18 04:00 98.4 69 18 165/66 (99) 96 08/29/18 00:45 168/72 08/29/18 00:45 168/72 08/29/18 00:00 97.9 76 20 100/60 (73) 96 08/28/18 21:12 144/71 08/28/18 21:11 70 144/71 08/28/18 21:00 Room Air 08/28/18 20:00 98.1 94 20 148/62 (90) 96 08/28/18 17:11 97.9 08/28/18 15:58 97.9 66 20 146/63 (90) 96 08/28/18 15:16 156/65 Intake and Output 08/28/18 08/29/18 19:00 07:00 Intake Total 480 ml Output Total 550 ml Balance -70 ml Intake Oral 480 ml Output Urine Total 550 ml # Voids 2 1 Height (Feet): 5 Height (Inches): 2.00 Weight (Pounds): 167 General Appearance: lethargic EENT: normal ENT inspection Neck: normal alignment Cardiovascular: normal peripheral pulses, normal rate, regular rhythm Respiratory/Chest: chest wall non-tender, lungs clear, normal breath sounds Abdomen: normal bowel sounds, non tender, soft Extremities: normal inspection Edema: no edema noted Arm (L), no edema noted Arm (R), no edema noted Leg (L), no edema noted Leg (R), no edema noted Pedal (L), no edema noted Pedal (R), no edema noted Generalized Neurologic: responsive, motor weakness Skin: normal pigmentation, warm/dry Naun Geiger DO Aug 29, 2018 13:01
--- NOTE | 2018-08-29 13:14 | NUR ---
NURSE NOTES: Dr. Geiger met with patient. Ok to D/C after cardio clearance. Will continue to monitor patient. Addendum: 08/29/18 at 1317 by DERICK LUTZ RN Ok to D/C with [facility] if cleared by cardio.
--- NOTE | 2018-08-29 20:05 | NUR ---
HAND-OFF: Report given to Monica SUAREZ. Patient is stable.
--- NOTE | 2018-08-29 20:15 | NUR ---
NURSE NOTES:Patient received from Radha LUTZ R.N. patient A/A/AOX4 . Patient denies any pain at this time . so sob / no n/v noted . RAC g# 22 H/L patent and intact . call light within reach . bed in low position at all times . will continue to monitor patient .
[2018-08-29] MEDS ORDERED: Miralax 17gm pkt ORAL PRN (20:30)
[2018-08-29] MEDS: TraZODone 50mg tab ORAL SCH (21:16)
--- NOTE | 2018-08-29 23:08 | Cardiology Progress Note ---
Assessment/Plan Assessment/Plan 1. Accelerated hypertension, well controlled, continue hydralazine, carvedilol, amlodipine and clonidine. 2. Dyspnea most likely secondary to bilateral pleural effusion, status post right thoracentesis yielding about 500 mL of fluid. 2D echocardiography July 17, 2018 showed normal LV systolic and diastolic function with LVEF of approximately 55%. Continue IV antibiotics, pulmonary toilet, and diuretic therapy. 3. Moderate pulmonary hypertension likely due to CKD. 4. Stage 5 CKD with small pericardial effusion, refused HD. 5. Anemia, possible chronic kidney disease. 6. History of CVA with left hemiparesis, consider aspirin and statins. Subjective Subjective Sinus rhythm at rate of 74. Objective Last 24 Hour Vital Signs Date Time Temp Pulse Resp B/P (MAP) Pulse Ox O2 Delivery O2 Flow Rate FiO2 08/29/18 22:00 98.0 74 18 145/59 (87) 96 08/29/18 21:58 145/59 08/29/18 21:17 150/66 08/29/18 21:16 73 150/66 08/29/18 21:00 Room Air 08/29/18 20:51 74 16 Room Air 21 08/29/18 20:00 98.0 73 20 150/66 (94) 98 08/29/18 18:35 164/68 08/29/18 16:00 98.5 66 18 144/52 (82) 98 08/29/18 14:03 147/64 08/29/18 12:13 142/80 08/29/18 11:50 98.3 68 18 142/80 (100) 98 08/29/18 09:12 177/73 08/29/18 09:11 69 177/73 08/29/18 09:11 69 177/73 08/29/18 09:00 Room Air 08/29/18 08:10 71 16 Room Air 21 08/29/18 08:00 69 20 177/73 (107) 97 08/29/18 06:51 171/68 08/29/18 06:51 171/68 08/29/18 04:00 98.4 69 18 165/66 (99) 96 08/29/18 00:45 168/72 08/29/18 00:45 168/72 08/29/18 00:00 97.9 76 20 100/60 (73) 96 Intake and Output 08/28/18 08/29/18 18:59 06:59 Intake Total 480 ml Output Total 550 ml Balance -70 ml Intake Oral 480 ml Output Urine Total 550 ml # Voids 2 1 2D Echo: LVEF 65%, Mild MR, Normal LVD, RVSP 56mmHg Objective HEENT: Atraumatic and normocephalic. Anicteric. Pupils are equal, round, and reactive to light and accommodation. Extraocular muscles intact. Poor dentition. NECK: JVP less than 5 cm. No carotid bruit. Carotid upstrokes 2+ bilaterally. LUNGS: Bilateral lower lung crackles. Diminished breath sounds on both lungs and the bases. CARDIOVASCULAR: Normal S1, S2. Regular rate and rhythm. No murmurs, gallops, or rubs. ABDOMEN: Soft, nontender, and nondistended. No hepatosplenomegaly. Positive bowel sounds. EXTREMITIES: No evidence of edema, clubbing, or cyanosis. Kwesi Zee MD Aug 29, 2018 23:08
[2018-08-30] VITALS (8 sets, daily range): BP systolic 122–175; BP diastolic 59–77
[2018-08-30] MEDS: HydrALAZINE 50mg tab ORAL SCH ×3 (05:51→22:01)
[2018-08-30] MEDS: sitaGLIPtin 25mg tab ORAL SCH (05:56)
[2018-08-30] MEDS: Heparin 5000 units/ml inj SUBQ SCH ×3 (05:59→21:31)
[2018-08-30] MEDS: NovoLOG Insulin Flexpen SUBQ SCH ×4 (06:00→21:59)
--- NOTE | 2018-08-30 07:15 | NUR ---
HAND-OFF: Report given to Mohsen bob R.N. patient in stable condition.
[2018-08-30 07:16] LABS: ANION GAP 6 mmol/L (5-15); BLOOD UREA NITROGEN 49 mg/dL (7-18); CALCIUM 7.9 MG/DL (8.5-10.1); CARBON DIOXIDE 23 MMOL/L (21-32); CHLORIDE 111 MMOL/L (98-107); CREATININE 2.6 MG/DL (0.55-1.30); POTASSIUM 3.9 MMOL/L (3.5-5.1); SODIUM 140 MMOL/L (136-145)
[2018-08-30 07:18] LABS: BASOPHILS % (AUTO) 0.7 % (0.0-2.0); EOSINOPHILS % (AUTO) 6.3 % (0.0-3.0); HEMOGLOBIN 9.9 G/DL (12.0-16.0); LYMPHOCYTES % (AUTO) 28.2 % (20.0-45.0); MEAN CORPUSCULAR VOLUME 99 FL (80-99); MONOCYTES % (AUTO) 7.1 % (1.0-10.0); NEUTROPHILS % (AUTO) 57.8 % (45.0-75.0); PLATELET COUNT 233 K/UL (150-450); RED BLOOD COUNT 3.15 M/UL (4.20-5.40); RED CELL DISTRIBUTION WIDTH 13.3 % (11.6-14.8); WHITE BLOOD COUNT 3.9 K/UL (4.8-10.8)
[2018-08-30] MEDS: Aspirin Baby 81mg ORAL SCH (08:41)
[2018-08-30] MEDS: Minoxidil 2.5mg tab ORAL SCH ×2 (08:41→21:27)
[2018-08-30] MEDS: Carvedilol 25mg Tab ORAL SCH ×2 (08:41→21:24)
--- NOTE | 2018-08-30 09:20 | NUR ---
NURSE NOTES: PT ALERT AND RESTING IN BED. NTO VERY TALKATIVE BUT ABLE TO ANSWER RN'S QUESTIONS. IN NO APPARENT DISTRESS AT THIS TIME. PT STATES SHE HAS SEVERE PAIN. RN EDUCATED PT ON PRN SCHEDULE OF PERCOCET 10/325MG Q4H. PT VERBALIZED UNDERSTANDING. SCOTT CATH DRAINING CLEAR, YELLOW URINE BY GRAVITY. BED IN LOWEST POSITION WITH BEDSIDE RAILS X3 RAISED. BED ALARM ON. WILL CONTINUE TO MONITOR.
--- NOTE | 2018-08-30 10:33 | NUR ---
NURSE NOTES: RN LEFT MESSAGE FOR DR. STOKES REGARDING CLEARANCE FOR DISCHARGE.
--- NOTE | 2018-08-30 10:36 | NUR ---
NURSE NOTES: PER DR. STOKES, PT IS CLEARED FOR DISCHARGE.
--- NOTE | 2018-08-30 10:46 | NUR ---
NURSE NOTES: RN MADE DR SZYMANSKI MADE AWARE OF CLEARANCE FOR DISCHARGE FROM DR. STOKES. PER DR. SZYMANSKI, [facility]. STATES HE WILL BE HERE THIS AFTERNOON TO DISCHARGE PT.
--- NOTE | 2018-08-30 10:47 | Diagnostic Imaging Report ---
APPROVED REPORT CPT Code: 97553 Present Symptoms Lower Extremity Pain: Bilateral Comments: Swelling BILATERAL: Imaging reveals a patent deep venous system bilaterally. There is no evidence of thrombus within the femoral, popliteal or tibial segments. The greater saphenous veins are also within normal limits. Doppler indicates normal spontaneous flow within these segments.
--- NOTE | 2018-08-30 11:28 | NUR ---
REHAB [facility] PT NOTE CONSULT RECEIVED, ERMELINDA COMPLTED, PATIENT WILL BENEFIT FROM SKILLED PT DURING STAY FOR RETURN TO [facility]. RECOMMEND SNF [place]. PLAN OF CARE INITIATED. LEANNA SANTIAGO PT DPT Addendum: 08/30/18 at 1129 by LEANNA SANTIAGO PT Amended: Links added.
--- NOTE | 2018-08-30 13:24 | NUR ---
RD ASSESSMENT & RECOMMENDATIONS SEE CARE ACTIVITY FOR COMPLETE ASSESSMENT DAILY ESTIMATED NEEDS: Needs based on Renal- no HD, DM, cardiac 55.5kg adj 25-30 kcals/kg 5031-5302 total kcals .8-1.2 g protein/kg 44-67 g total protein 25-30 mL/kg 4926-0992 total fluid mLs NUTRITION DIAGNOSIS: Altered nutrition related lab values r/t renal dysfunction, DM, and cardiac history as evidenced by elev creat (2.6), elev BUN (49), elev BGs (194, 170), elev BP. CURRENT DIET:CCHO MED, SOFT EASY CHEW PO DIET RECOMMENDATIONS: LOW NA, CCHO LOW/ texture as tolerated ADDITIONAL RECOMMENDATIONS: 1) CALIBRATED bedscale wt for accurate CBW 2) Monitor renal fxn and lytes . . . .
--- NOTE | 2018-08-30 14:18 | NUR ---
NURSE NOTES: RN SPOKE TO DR. SZYMANSKI WHO STATES HE IS NOT GOING TO WRITE PRESCRIPTIONS AND TO ASK DR. GE. PT MAY KEEP SCOTT IF SHE NEEDS IT FOR RETENTION. RN MADE DR SZYMANSKI AWARE DR GE CAME BY TODAY. PER DR SZYMANSKI, WHEN HOME HEALTH SEES PT, THEY CAN ADDRESS PRESCRIPTIONS NEEDED. RN MADE PT AWARE AND PT STATES "I'M NOT GONNA BE LEAVING HERE WITHOUT A PAIN PRESCRIPTION. THE REASON I ALWAYS HAVE TO COME BACK IS BECAUSE MY PAIN MAKES MY BLOOD PRESSURE HIGH". RN MADE CRN AWARE. RN LEFT MESSAGE FOR DR. SZYMANSKI REGARDING PT REFUSING TO BE DISCHARGED WITHOUT PAIN MEDIATION.
--- NOTE | 2018-08-30 14:33 | General Progress Note ---
Assessment/Plan Problem List: (1) NSTEMI (non-ST elevated myocardial infarction) ICD Codes: I21.4 - Non-ST elevation (NSTEMI) myocardial infarction SNOMED: 731731112 (2) Hypertension ICD Codes: I10 - Essential (primary) hypertension SNOMED: 67865973 (3) Asthma ICD Codes: J45.909 - Unspecified asthma, uncomplicated SNOMED: 236560566 (4) Diabetes mellitus ICD Codes: E11.9 - Type 2 diabetes mellitus without complications SNOMED: 72744623 Status: stable, progressing Assessment/Plan o2 pulm tx cardio f/u dc w hh if clear Subjective Constitutional: Reports: weakness Allergies: Coded Allergies: LISINOPRIL (Verified Allergy, Unknown, 07/16/18) LOSARTAN (Verified Allergy, Unknown, 07/16/18) All Systems: reviewed and negative except above Subjective calm in bed eating Objective Last 24 Hour Vital Signs Date Time Temp Pulse Resp B/P (MAP) Pulse Ox O2 Delivery O2 Flow Rate FiO2 08/30/18 12:30 163/72 08/30/18 12:00 98.1 69 20 163/72 (102) 96 08/30/18 09:00 Room Air 08/30/18 08:41 175/76 08/30/18 08:41 67 175/76 08/30/18 08:41 67 175/76 08/30/18 08:00 98.1 67 20 175/76 (109) 97 08/30/18 06:37 98.0 08/30/18 06:00 98.2 74 20 154/77 (102) 98 08/30/18 05:52 170/74 08/30/18 05:51 170/74 08/30/18 05:36 98.0 78 20 170/74 (106) 98 08/30/18 04:00 98.3 77 20 152/70 (97) 98 08/30/18 00:00 98.5 78 19 138/62 (87) 96 08/29/18 23:44 138/62 08/29/18 22:00 98.0 74 18 145/59 (87) 96 08/29/18 21:58 145/59 08/29/18 21:17 150/66 08/29/18 21:16 73 150/66 08/29/18 21:00 Room Air 08/29/18 20:51 74 16 Room Air 21 08/29/18 20:00 98.0 73 20 150/66 (94) 98 08/29/18 18:35 164/68 08/29/18 16:00 98.5 66 18 144/52 (82) 98 Intake and Output 08/29/18 08/30/18 19:00 07:00 Intake Total 1400 ml 1460 ml Output Total 2400 ml Balance 1400 ml -940 ml Intake Oral 1400 ml 1460 ml Output Urine Total 2400 ml # Voids 1 Laboratory Tests 08/30/18 05:20: White Blood Count 3.9L, Red Blood Count 3.15L, Hemoglobin 9.9L, Hematocrit 31.0L , Mean Corpuscular Volume 99, Mean Corpuscular Hemoglobin 31.5H, Mean Corpuscular Hemoglobin Concent 32.0, Red Cell Distribution Width 13.3, Platelet Count 233, Mean Platelet Volume 6.9, Neutrophils (%) (Auto) 57.8, Lymphocytes (% ) (Auto) 28.2, Monocytes (%) (Auto) 7.1, Eosinophils (%) (Auto) 6.3H, Basophils (%) (Auto) 0.7, Sodium Level 140, Potassium Level 3.9, Chloride Level 111H, Carbon Dioxide Level 23, Anion Gap 6, Blood Urea Nitrogen 49H, Creatinine 2.6H, Estimat Glomerular Filtration Rate 23.1, Glucose Level 194H, Calcium Level 7.9L Height (Feet): 5 Height (Inches): 2.00 Weight (Pounds): 167 General Appearance: lethargic EENT: normal ENT inspection Neck: normal alignment Cardiovascular: normal peripheral pulses, normal rate, regular rhythm Respiratory/Chest: chest wall non-tender, lungs clear, normal breath sounds Abdomen: normal bowel sounds, non tender, soft Extremities: normal inspection Edema: no edema noted Arm (L), no edema noted Arm (R), no edema noted Leg (L), no edema noted Leg (R), no edema noted Pedal (L), no edema noted Pedal (R), no edema noted Generalized Neurologic: responsive, motor weakness Skin: normal pigmentation, warm/dry Naun Geiger DO Aug 30, 2018 14:33
--- NOTE | 2018-08-30 14:53 | NUR ---
NURSE NOTES: PT REFUSED SCHEDULED HEPARIN INJECTION. PT STATES "IF THEY'RE NOT GONNA BE TAKING CARE OF ME THEN...". RN EDUCATED ON RISKS AND BENEFITS. PT CONTINUED TO REFUSE.
--- NOTE | 2018-08-30 19:04 | NUR ---
HAND-OFF: Report given to Michel LYNN LVN.
[2018-08-30] MEDS: TraZODone 50mg tab ORAL SCH (21:26)
--- NOTE | 2018-08-30 23:22 | Cardiology Progress Note ---
Assessment/Plan Assessment/Plan 1. Accelerated hypertension, well controlled, continue hydralazine, carvedilol, amlodipine and clonidine. 2. Dyspnea most likely secondary to bilateral pleural effusion, status post right thoracentesis yielding about 500 mL of fluid. 2D echocardiography July 17, 2018 showed normal LV systolic and diastolic function with LVEF of approximately 55%. Continue IV antibiotics, pulmonary toilet, and diuretic therapy. 3. Moderate pulmonary hypertension likely due to CKD. 4. MICHELLE on CKD with small pericardial effusion. 5. Anemia, possible chronic kidney disease. 6. History of CVA with left hemiparesis, consider aspirin and statins. Subjective Subjective No cardiac events. Objective Last 24 Hour Vital Signs Date Time Temp Pulse Resp B/P (MAP) Pulse Ox O2 Delivery O2 Flow Rate FiO2 08/30/18 22:09 96.9 08/30/18 22:01 151/68 08/30/18 21:27 122/64 08/30/18 21:24 64 122/64 08/30/18 21:00 Room Air 08/30/18 20:00 98.9 64 20 122/64 (83) 96 08/30/18 19:15 67 18 Room Air 21 08/30/18 17:32 137/59 08/30/18 16:00 96.9 71 20 137/59 (85) 96 08/30/18 14:31 163/72 08/30/18 12:30 163/72 08/30/18 12:00 98.1 69 20 163/72 (102) 96 08/30/18 09:00 Room Air 08/30/18 08:41 175/76 08/30/18 08:41 67 175/76 08/30/18 08:41 67 175/76 08/30/18 08:32 66 14 Room Air 21 08/30/18 08:00 98.1 67 20 175/76 (109) 97 08/30/18 06:00 98.2 74 20 154/77 (102) 98 08/30/18 05:52 170/74 08/30/18 05:51 170/74 08/30/18 05:36 98.0 78 20 170/74 (106) 98 08/30/18 04:00 98.3 77 20 152/70 (97) 98 08/30/18 00:00 98.5 78 19 138/62 (87) 96 08/29/18 23:44 138/62 Intake and Output 08/29/18 08/30/18 19:00 07:00 Intake Total 1400 ml 1460 ml Output Total 2400 ml Balance 1400 ml -940 ml Intake Oral 1400 ml 1460 ml Output Urine Total 2400 ml # Voids 1 2D Echo: LVEF 65%, Mild MR, Normal LVD, RVSP 56mmHg Laboratory Tests Test 08/30/18 05:20 White Blood Count 3.9 K/UL (4.8-10.8) L Red Blood Count 3.15 M/UL (4.20-5.40) L Hemoglobin 9.9 G/DL (12.0-16.0) L Hematocrit 31.0 % (37.0-47.0) L Mean Corpuscular Volume 99 FL (80-99) Mean Corpuscular Hemoglobin 31.5 PG (27.0-31.0) H Mean Corpuscular Hemoglobin Concent 32.0 G/DL (32.0-36.0) Red Cell Distribution Width 13.3 % (11.6-14.8) Platelet Count 233 K/UL (150-450) Mean Platelet Volume 6.9 FL (6.5-10.1) Neutrophils (%) (Auto) 57.8 % (45.0-75.0) Lymphocytes (%) (Auto) 28.2 % (20.0-45.0) Monocytes (%) (Auto) 7.1 % (1.0-10.0) Eosinophils (%) (Auto) 6.3 % (0.0-3.0) H Basophils (%) (Auto) 0.7 % (0.0-2.0) Sodium Level 140 MMOL/L (136-145) Potassium Level 3.9 MMOL/L (3.5-5.1) Chloride Level 111 MMOL/L (98-107) H Carbon Dioxide Level 23 MMOL/L (21-32) Anion Gap 6 mmol/L (5-15) Blood Urea Nitrogen 49 mg/dL (7-18) H Creatinine 2.6 MG/DL (0.55-1.30) H Estimat Glomerular Filtration Rate 23.1 mL/min (>60) Glucose Level 194 MG/DL (74-106) H Calcium Level 7.9 MG/DL (8.5-10.1) L Objective HEENT: Atraumatic and normocephalic. Anicteric. Pupils are equal, round, and reactive to light and accommodation. Extraocular muscles intact. Poor dentition. NECK: JVP less than 5 cm. No carotid bruit. Carotid upstrokes 2+ bilaterally. LUNGS: Bilateral lower lung crackles. Diminished breath sounds on both lungs and the bases. CARDIOVASCULAR: Normal S1, S2. Regular rate and rhythm. No murmurs, gallops, or rubs. ABDOMEN: Soft, nontender, and nondistended. No hepatosplenomegaly. Positive bowel sounds. EXTREMITIES: No evidence of edema, clubbing, or cyanosis. Kwesi Zee MD Aug 30, 2018 23:22
[2018-08-31] VITALS (7 sets, daily range): BP systolic 129–153; BP diastolic 59–77
[2018-08-31] MEDS: HydrALAZINE 50mg tab ORAL SCH ×2 (05:25→13:43)
[2018-08-31] MEDS: Heparin 5000 units/ml inj SUBQ SCH ×2 (05:29→13:46)
[2018-08-31] MEDS: sitaGLIPtin 25mg tab ORAL SCH (06:55)
[2018-08-31] MEDS: NovoLOG Insulin Flexpen SUBQ SCH ×3 (06:56→16:30)
--- NOTE | 2018-08-31 07:15 | NUR ---
HAND-OFF: Report given to TYRA Hurst Patient instable condition and to follow up patient prescription for pain .
--- NOTE | 2018-08-31 07:39 | NUR ---
nurse notes received patient resting comfortably in bed, denies pain at this time, HL patent, jaramillo cath draining well, on fall precaution observed and maintained, kept clean dry and intact, will continue to monitor patient condition .gonzález blanca rn
[2018-08-31] MEDS: Carvedilol 25mg Tab ORAL SCH (08:03)
[2018-08-31] MEDS: Aspirin Baby 81mg ORAL SCH (08:04)
[2018-08-31] MEDS: Minoxidil 2.5mg tab ORAL SCH (08:04)
--- NOTE | 2018-08-31 11:48 | Nephrology Progress Note ---
Assessment/Plan Plan [id number] consult dictated Objective Objective Last 24 Hour Vital Signs Date Time Temp Pulse Resp B/P (MAP) Pulse Ox O2 Delivery O2 Flow Rate FiO2 08/31/18 08:05 Room Air 08/31/18 08:04 129/69 08/31/18 08:04 72 129/69 08/31/18 08:03 72 129/69 08/31/18 08:00 97.8 70 20 153/63 (93) 95 08/31/18 05:27 98.0 72 20 129/69 (89) 95 08/31/18 05:27 129/69 08/31/18 05:25 129/69 08/31/18 04:00 97.2 75 20 134/77 (96) 98 08/31/18 03:14 98.0 08/31/18 00:00 98.0 72 20 148/60 (89) 98 08/30/18 23:35 148/60 08/30/18 22:01 151/68 08/30/18 21:27 122/64 08/30/18 21:24 64 122/64 08/30/18 21:00 Room Air 08/30/18 20:00 98.9 64 20 122/64 (83) 96 08/30/18 19:15 67 18 Room Air 21 08/30/18 17:32 137/59 08/30/18 16:00 96.9 71 20 137/59 (85) 96 08/30/18 14:31 163/72 08/30/18 12:30 163/72 08/30/18 12:00 98.1 69 20 163/72 (102) 96 Intake and Output 08/30/18 08/31/18 19:00 07:00 Intake Total 720 ml 780 ml Output Total 600 ml 500 ml Balance 120 ml 280 ml Intake Oral 720 ml 780 ml Output Urine Total 600 ml 500 ml Height (Feet): 5 Height (Inches): 2.00 Weight (Pounds): 167 Nabila Park MD Aug 31, 2018 11:48
--- NOTE | 2018-08-31 13:05 | Pulmonology Progress Note ---
Assessment/Plan Problems: (1) NSTEMI (non-ST elevated myocardial infarction) (2) Hypertension (3) Diabetic neuropathy (4) Diabetes mellitus (5) Cardiomegaly (6) Solitary kidney Assessment/Plan symptomatic treatment dc home prescription given Subjective ROS Limited/Unobtainable: No HEENT: Repors: no symptoms Respiratory: Reports: no symptoms Allergies: Coded Allergies: LISINOPRIL (Verified Allergy, Unknown, 07/16/18) LOSARTAN (Verified Allergy, Unknown, 07/16/18) Objective Last 24 Hour Vital Signs Date Time Temp Pulse Resp B/P (MAP) Pulse Ox O2 Delivery O2 Flow Rate FiO2 08/31/18 12:17 130/59 08/31/18 11:44 98.0 66 19 130/59 (82) 95 08/31/18 08:05 Room Air 08/31/18 08:04 129/69 08/31/18 08:04 72 129/69 08/31/18 08:03 72 129/69 08/31/18 08:00 97.8 70 20 153/63 (93) 95 08/31/18 05:27 98.0 72 20 129/69 (89) 95 08/31/18 05:27 129/69 08/31/18 05:25 129/69 08/31/18 04:00 97.2 75 20 134/77 (96) 98 08/31/18 03:14 98.0 08/31/18 00:00 98.0 72 20 148/60 (89) 98 08/30/18 23:35 148/60 08/30/18 22:01 151/68 08/30/18 21:27 122/64 08/30/18 21:24 64 122/64 08/30/18 21:00 Room Air 08/30/18 20:00 98.9 64 20 122/64 (83) 96 08/30/18 19:15 67 18 Room Air 21 08/30/18 17:32 137/59 08/30/18 16:00 96.9 71 20 137/59 (85) 96 08/30/18 14:31 163/72 Intake and Output 08/30/18 08/31/18 19:00 07:00 Intake Total 720 ml 780 ml Output Total 600 ml 500 ml Balance 120 ml 280 ml Intake Oral 720 ml 780 ml Output Urine Total 600 ml 500 ml General Appearance: WD/WN HEENT: normocephalic, anicteric Respiratory/Chest: chest wall non-tender, normal breath sounds Cardiovascular: normal peripheral pulses, regular rhythm Abdomen: normal bowel sounds, soft, non tender Genitourinary: normal external genitalia Skin: no rash Laboratory Tests 08/31/18 11:00: Urine Random Total Protein 383H, Urine Random Sodium 23, Urine Creatinine 108.9 Current Medications Medications (Trade) Dose Ordered Sig/Zara Route PRN Reason Start Time Stop Time Status Last Admin Dose Admin Acetaminophen (Tylenol) 650 mg Q4H PRN ORAL FEVER 08/29/18 00:30 09/24/18 20:28 Amlodipine Besylate (Norvasc) 10 mg DAILY ORAL 08/29/18 09:00 09/25/18 08:59 08/31/18 08:04 Aspirin (ASA) 162 mg DAILY ORAL 08/29/18 09:00 09/25/18 08:59 08/31/18 08:04 Atorvastatin Calcium (Lipitor) 10 mg BEDTIME ORAL 08/29/18 21:00 09/24/18 20:59 08/30/18 21:25 Carvedilol (Coreg) 37.5 mg EVERY 12 HOURS ORAL 08/29/18 09:00 09/24/18 20:59 08/31/18 08:03 Clonidine HCl (Catapres Tab) 0.1 mg EVERY 6 HOURS ORAL 08/29/18 00:00 09/28/18 00:00 08/31/18 12:17 Clopidogrel Bisulfate (Plavix) 75 mg DAILY ORAL 08/29/18 09:00 09/25/18 08:59 08/31/18 08:04 Dextrose (Dextrose 50%) 25 ml Q30M PRN IV Hypoglycemia 08/28/18 23:30 09/24/18 20:29 Dextrose (Dextrose 50%) 50 ml Q30M PRN IV Hypoglycemia 08/28/18 23:45 09/24/18 20:44 Furosemide (Lasix) 40 mg EVERY 12 HOURS IV 08/31/18 21:00 09/30/18 20:59 Gabapentin (Neurontin) 300 mg Q12HR ORAL 08/29/18 09:00 09/24/18 20:59 08/31/18 08:04 Heparin Sodium (Porcine) (Heparin 5000 units/ml) 5,000 units EVERY 8 HOURS SUBQ 08/29/18 06:00 09/24/18 21:59 08/31/18 05:29 Hydralazine HCl (Apresoline) 50 mg EVERY 8 HOURS ORAL 08/29/18 06:00 09/24/18 21:59 08/31/18 05:25 Insulin Aspart (NovoLOG) No Dose BEFORE MEALS AND HS SUBQ 08/29/18 06:30 09/24/18 20:59 08/31/18 12:18 Minoxidil (Loniten) 2.5 mg Q12HR ORAL 08/29/18 00:00 09/28/18 00:00 08/31/18 08:04 Mirtazapine (Remeron) 7.5 mg BEDTIME ORAL 08/29/18 21:00 09/24/18 20:59 08/30/18 21:23 Nitroglycerin (Ntg) 0.4 mg Q5MIN X 3 DOSES PRN SL Prn Chest Pain 08/28/18 23:30 09/24/18 20:28 Ondansetron HCl (Zofran) 4 mg Q6H PRN IVP Nausea & Vomiting 08/29/18 02:30 09/24/18 20:28 Oxycodone/ Acetaminophen (Percocet 10/325) 1 tab Q4H PRN ORAL Severe Pain (Pain Scale 7-10) 08/29/18 01:15 09/05/18 01:14 08/31/18 06:55 Pantoprazole (Protonix) 40 mg DAILY ORAL 08/29/18 09:00 09/25/18 08:59 08/31/18 08:04 Polyethylene Glycol (Miralax) 17 gm DAILYPRN PRN ORAL Constipation 08/29/18 20:30 09/24/18 20:28 Sitagliptin Phosphate (Januvia) 25 mg ACBREAKFAST ORAL 08/29/18 06:30 09/25/18 06:29 08/31/18 06:55 Temazepam (Restoril) 15 mg HSPRN PRN ORAL Insomnia 08/29/18 21:00 09/01/18 20:59 Trazodone HCl (Desyrel) 50 mg BEDTIME ORAL 08/29/18 21:00 09/24/18 20:59 08/30/18 21:26 Hakeem Godinez MD Aug 31, 2018 13:05
--- NOTE | 2018-08-31 13:36 | NUR ---
NURSE NOTES Discharge to home with home health obtained, patient made aware regarding plan of care, left message to CALI Peñaloza patient wants ambulance for transportation, discharge instruction packet handed to patient, patient have a jaramillo catheter, jaramillo care teaching done all questions answered verbalized understanding, fax prescription to [facility] colette blanca
--- NOTE | 2018-08-31 14:58 | NUR ---
*-* DISCHARGE PLANNED*-* PATIENT IS DISCHARGE HOME [facility] BEEN [facility] FOR [facility] 430 PM S/W JENNIFER [id number] Addendum: 08/31/18 at 1459 by DRISS ZULUAGA CM *-* DISCHARGE PLANNED*-* PATIENT IS DISCHARGE HOME [facility] HAS BEEN ARRANGED FOR PROF[facility]OR OF [facility] 530 PM S/W JENNIFER [id number]
--- NOTE | 2018-08-31 15:04 | General Progress Note ---
Assessment/Plan Problem List: (1) NSTEMI (non-ST elevated myocardial infarction) ICD Codes: I21.4 - Non-ST elevation (NSTEMI) myocardial infarction SNOMED: 431892741 (2) Hypertension ICD Codes: I10 - Essential (primary) hypertension SNOMED: 22051762 (3) Asthma ICD Codes: J45.909 - Unspecified asthma, uncomplicated SNOMED: 434948644 (4) Diabetes mellitus ICD Codes: E11.9 - Type 2 diabetes mellitus without complications SNOMED: 56247550 Status: unchanged Assessment/Plan o2 pulm tx cardio f/u dc w hh if clear Subjective Constitutional: Reports: weakness Allergies: Coded Allergies: LISINOPRIL (Verified Allergy, Unknown, 07/16/18) LOSARTAN (Verified Allergy, Unknown, 07/16/18) All Systems: reviewed and negative except above Subjective calm in bed sleepy Objective Last 24 Hour Vital Signs Date Time Temp Pulse Resp B/P (MAP) Pulse Ox O2 Delivery O2 Flow Rate FiO2 08/31/18 13:43 130/59 08/31/18 12:17 130/59 08/31/18 11:44 98.0 66 19 130/59 (82) 95 08/31/18 08:05 Room Air 08/31/18 08:04 129/69 08/31/18 08:04 72 129/69 08/31/18 08:03 72 129/69 08/31/18 08:00 97.8 70 20 153/63 (93) 95 08/31/18 05:27 98.0 72 20 129/69 (89) 95 08/31/18 05:27 129/69 08/31/18 05:25 129/69 08/31/18 04:00 97.2 75 20 134/77 (96) 98 08/31/18 03:14 98.0 08/31/18 00:00 98.0 72 20 148/60 (89) 98 08/30/18 23:35 148/60 08/30/18 22:01 151/68 08/30/18 21:27 122/64 08/30/18 21:24 64 122/64 08/30/18 21:00 Room Air 08/30/18 20:00 98.9 64 20 122/64 (83) 96 08/30/18 19:15 67 18 Room Air 21 08/30/18 17:32 137/59 08/30/18 16:00 96.9 71 20 137/59 (85) 96 Intake and Output 08/30/18 08/31/18 19:00 07:00 Intake Total 720 ml 780 ml Output Total 600 ml 500 ml Balance 120 ml 280 ml Intake Oral 720 ml 780 ml Output Urine Total 600 ml 500 ml Laboratory Tests 08/31/18 11:00: Urine Random Total Protein 383H, Urine Random Sodium 23, Urine Creatinine 108.9 Height (Feet): 5 Height (Inches): 2.00 Weight (Pounds): 167 General Appearance: lethargic EENT: normal ENT inspection Neck: normal alignment Cardiovascular: normal peripheral pulses, normal rate, regular rhythm Respiratory/Chest: chest wall non-tender, lungs clear, normal breath sounds Abdomen: normal bowel sounds, non tender, soft Extremities: normal inspection Edema: no edema noted Arm (L), no edema noted Arm (R), no edema noted Leg (L), no edema noted Leg (R), no edema noted Pedal (L), no edema noted Pedal (R), no edema noted Generalized Neurologic: motor weakness Skin: normal pigmentation, warm/dry Naun Geiger DO Aug 31, 2018 15:04
--- NOTE | 2018-08-31 16:25 | NUR ---
*-* INSURANCE *-* CLINICALS HAVE BEEN FAXED TO: KEELY ([employer]) S/W TIMOTHY P- [phone] F- [phone] (FX THE REVIEW ONLY) & SHIV/LAISHA S/W NAOMI @ [phone] SHIV WILL TRACK THIS ADMISSION P- [phone] F- [phone] ( FX REVIEW/CLINICAL)
--- NOTE | 2018-08-31 17:23 | NUR ---
nurse notes follow up with [facility] regarding transportation , they will be late for an hour, patient made aware, and also instructed patient for discharge with jaramillo cath, jaramillo care teaching reinforce
--- NOTE | 2018-08-31 19:00 | Consultation ---
DATE OF CONSULTATION: 08/31/2018 NEPHROLOGY CONSULTATION CONSULTING PHYSICIAN: Nabila Park M.D. REFERRING PHYSICIAN: Naun Geiger D.O. REASON FOR CONSULTATION: Acute on chronic renal failure. HISTORY OF PRESENT ILLNESS: The patient is an unfortunate 53-year-old female, known to me with past medical history significant for history of chronic kidney disease, the creatinine is between 2.5 to 3; history of hypertension; history of CHF; history of CAD; history of multiple hospitalizations in the past; history of CVA with left-sided hemiparesis; non-ST elevation KS; and obstructive uropathy, who was presented to [facility] with shortness of breath and chest pain. On 08/25/2018, I was informed about the cause for the consultation on 08/30/2018. PAST MEDICAL HISTORY: 1. History of pacemaker placement. 2. History of asthma. 3. History of COPD. 4. History of diabetes. 5. History of CAD. 6. History of seizure disorder. 7. History of peripheral neuropathy. 8. History of CVA with left-sided hemiparesis. 9. History of non-ST elevation KS. 10. History of hypertension. PAST SURGICAL HISTORY: Above. SOCIAL HISTORY: The patient lives at home. There is no current history of tobacco, alcohol, or drug use. FAMILY HISTORY: Noncontributory. REVIEW OF SYSTEMS: GENERAL: She complained of generalized weakness. No fever, chills, or night sweats. HEAD AND NECK: No dysphagia, odynophagia, blurry vision, headache, or neck stiffness. PULMONARY: Complained of shortness of breath. No cough or sputum. CARDIOVASCULAR: Denies any chest pain or palpitations. GASTROINTESTINAL: Denies any nausea, vomiting, diarrhea, hematemesis, or hematochezia. GENITOURINARY: Denies any dysuria or frequency. MUSCULOSKELETAL: Complained of generalized weakness. Denies any localized weakness or numbness. She has a left-sided hemiparesis from the last stroke. PHYSICAL EXAMINATION: VITAL SIGNS: The patient had temperature of 98, blood pressure 129/69, and pulse rate of 72. HEAD AND NECK: No JVP. No LAD. No thyromegaly. Extraocular movement intact. Pupils are reactive to light and accommodation. LUNGS: Clear to auscultation. CARDIAC: Regular rate and rhythm. S1 and S.. No murmur. No rub. ABDOMEN: Soft, nontender, and nondistended. EXTREMITIES: Has 3+ edema. No clubbing. No cyanosis. LABORATORY AND DIAGNOSTIC DATA: The patient has sodium 140, potassium 3.9, chloride 111, bicarbonate 22, BUN of 49, creatinine of 2.6, glucose of 194, and calcium of 7.9. CBC revealed WBC count of 3.9, hemoglobin of 9.9, hematocrit of 31, and platelet count of 233,000. ASSESSMENT: 1. Acute renal failure, the etiology of acute renal failure is cardiorenal syndrome. 2. Chronic kidney disease. 3. Hypertension, which is at this time. 4. Anemia of chronic kidney disease. 5. Fluid overload. 6. Chest pain. PLAN: Plan for the patient, start the patient on Lasix 40 mg IV daily. Check the UA. Check the random urine protein creatinine ratio to calculate the proteinuria. Check the urine sodium calculate fractional excretion of sodium. Daily weights. Monitor I's and O's. At the end, I would like to thank Dr. Naun Geiger for allowing me to participate in the care of this patient. Alona Jones JOB#: [id number] CC:
--- NOTE | 2018-08-31 19:35 | NUR ---
HAND-OFF: Report given to JENNIFER Ye.
--- NOTE | 2018-09-01 14:13 | NUR ---
*-* INSURANCE *-* CLINICALS HAVE BEEN RE-FAXED TO: KEELY ([employer]) S/W TIMOTHY P- [phone] F- [phone] (FX THE REVIEW ONLY)
--- NOTE | 2018-09-01 15:19 | Discharge Summary ---
Discharge Summary Discharge Summary _ DATE OF ADMISSION: 08/25/2018 DATE OF DISCHARGE: 08/31/2018 DISCHARGED BY: Dr. Naun Geiger CONSULTANTS: Dr. Kwesi Godinez BRIEF HOSPITAL COURSE: Patient is a 53-year-old female, who is a poor historian, presented to ED complaining of chest pain for unknown duration. She denies shortness of breath. Denies any other symptoms. No cough. No fever. She complained of pain at Ramírez site insertion and does not know why she has a Ramírez. She has medical history significant for hypertension, coronary artery disease, CHF, CVA with left-sided paresis and diabetes mellitus. Evaluation at ED, blood pressure was elevated to 190/64, pulse rate 69. She was given emergent dose of hydralazine. Nitropaste was placed. Blood work showed no leukocytosis, hemoglobin and hematocrit were stable. Electrolytes were normal. Creatinine was elevated to 2.1, BUN 56. Initial troponin was negative. She had an EKG that showed normal sinus rhythm with no acute changes. Chest x-ray was without acute disease. She was then admitted for evaluation of acute coronary syndrome and renal failure. Tobacco Scrap Sifter was consulted. EKG at the time of arrival showed sinus rhythm heart rate of 69 with LVH and possible septal infarct of age-indeterminate. There was no evidence of acute ischemic changes. Previous cardiac workup showed echocardiography done on July 17, 2018 that revealed normal LV systolic and diastolic dysfunction with LVEF of approximately 55%. Blood pressure was treated with amlodipine, hydralazine, carvedilol and blood pressure goal is 130/80 mmHg. Patient has a history of diastolic congestive heart failure, however, chest x-ray showed no evidence of CHF. She has moderate pulmonary hypertension. She has history of elevated troponin in the past due to non-ST elevated CT versus troponin leak due to chronic kidney disease as well as diastolic heart failure. Jig Borer was consulted. Patient has history of CKD stage V. Patient has renal failure due to cardiorenal syndrome. She was given aspirin and Plavix. She was continued on Lipitor. Blood glucose was monitored. She was continued on insulin sliding scale. She was given Januvia 25 mg daily. She was given symptomatic treatment. Troponin levels down trended. She was eventually discharged home. FINAL DIAGNOSES: Hypertensive urgency/accelerated hypertension Acute on chronic renal failure Elevated troponin possibly due to non-ST elevated and troponin leak due to CKD CKD stage V Diabetes mellitus with diabetic neuropathy Cardiomegaly Anemia of chronic kidney disease Asthma Moderate pulmonary hypertension, likely due to CKD Acute on chronic diastolic CHF DISPOSITION: Patient was discharged home. DISCHARGE MEDICATIONS: Refer to Discharge Medication List. DISCHARGE INSTRUCTIONS: Follow-up in a week. I have been assigned to complete a discharge summary on this account, I was not involved with the patient's management. Sadaf Soler NP Sep 01, 2018 15:19
== END 2018-08-31 20:15 | disposition home or self-care (01) | DRG 194 ==
LOC: EDBD 14:03 → EMR 14:40 → EDBEDREQ 16:58 → 2E 17:33 → EDBEDREQ 17:48 → 3E 08-28 23:36
DX: I13.2 Hypertensive heart and chronic kidney disease with heart failure and with stage 5 chronic kidney disease, or end stage renal disease (principal); N17.9 Acute kidney failure, unspecified; E11.22 Type 2 diabetes mellitus with diabetic chronic kidney disease; N18.5 Chronic kidney disease, stage 5; E11.40 Type 2 diabetes mellitus with diabetic neuropathy, unspecified; I27.20 Pulmonary hypertension, unspecified; I50.33 Acute on chronic diastolic (congestive) heart failure; D63.1 Anemia in chronic kidney disease; I16.0 Hypertensive urgency; J44.9 Chronic obstructive pulmonary disease, unspecified; G40.909 Epilepsy, unspecified, not intractable, without status epilepticus; Z95.0 Presence of cardiac pacemaker; I25.2 Old myocardial infarction; I69.354 Hemiplegia and hemiparesis following cerebral infarction affecting left non-dominant side; I25.10 Atherosclerotic heart disease of native coronary artery without angina pectoris
CPT/HCPCS: 36415; 71045; 80048; 80053; 80061; 82044; 82570; 82962; 84300; 84443; 84484; 85025; 85610; 85730; 86140; 93005; 93970; 94664; 96374; 96375; 99291; J1815